=== PATIENT | female | born 1955 | race Caucasian/White ===

== ENCOUNTER 2022-05-25 18:21 | Observation (INO) | payer MEDICARE, SELFPAY ==
[2022-05-25 18:22] VITALS: BP 106/47; PULSE 56; RESP 15; TEMP 36.5; O2SAT 100; BMI 28.0
[2022-05-25 18:39] VITALS: BMI 28.0
[2022-05-25 19:13] VITALS: BP 98/53; PULSE 60; RESP 16; O2SAT 100
--- NOTE | 2022-05-25 19:13 | CT_ITS ---
We are attempting to reach an attending provider to discuss findings. An addendum with communication details will be sent when the communication is complete. STAT! STAT! STROKE ALERT! STUDY: CT BRAIN WITHOUT CONTRAST FOR STROKE ALERT STUDY OF 1941 HOURS ON 05/25/2022 REASON FOR EXAM: 66-year-old female with neural deficit. Acute stroke is suspected. RADIATION DOSAGE (If Supplied By Facility): CTDIvol = ( 44.99 ) mGy, DLP = ( 796.11 ) mGycm TECHNIQUE: Transaxial CT imaging of the brain was performed without administration of intravenous contrast material. Individualized dose optimization techniques were used for this CT. Sagittal and coronal reconstructions were obtained and all were demonstrated in osseous and soft tissue algorithms. COMPARISON: No relevant priors. FINDINGS: Normal ventricular system without a midline shift. No ischemic or hemorrhagic cerebral infarct. No mass lesions or metastatic disease. No subdural, epidural, intracerebral hematoma, hemorrhage or contusion. No solid pituitary. Normal brainstem and posterior fossa. Normal calvarium without definite depressed skull fractures. Chronic mucosal thickening in the left maxillary sinus compatible with chronic left maxillary sinusitis. Other paranasal sinuses are normal. CT/STROKE Brain/Head without Cont IMPRESSION: 1. No intracranial pathology. 2. No current evidence of an ischemic or hemorrhagic cerebral infarct. 3. No intracranial mass lesions, hemorrhage or hematomas. 4. Normal sella and pituitary normal posterior fossa and brainstem. 5. Normal paranasal sinuses. 6. Chronic left maxillary sinusitis. The other paranasal sinuses are normal. Electronically Signed: Liang Pardo MD at 20:02 EDT ,
--- NOTE | 2022-05-25 19:13 | EKG12_ITS ---
Test Reason : DYSRHYTHMIA Blood Pressure : / mmHG Vent. Rate : 057 BPM Atrial Rate : 057 BPM P-R Int : 126 ms QRS Dur : 108 ms QT Int : 466 ms P-R-T Axes : 046 006 042 degrees QTc Int : 453 ms Sinus bradycardia Otherwise normal ECG Confirmed by ROSE MARIE BREWER, FARZANA ([id number]), production editor FLORENCIO SUTTON ([id number]) on 05/28/2022 9:39:13 AM Referred By: BRITTANI Confirmed By:FARZANA TROTTER MD
--- NOTE | 2022-05-25 19:16 | EDS_ITS ---
HPI History of Present Illness Chief Complaint: Neuro S/Sx Narrative Narrative: 66-year-old female with history of traumatic brain injury and hemorrhage presenting with strokelike symptoms which started 10 days ago on the . She states that it was about 9 PM [place] standard time. She is from [place]. She made an appointment with her primary care physician and she states that he did not say or do anything. He did not send her to the hospital. He did not start her on antiplatelet medicines. She states at that point she had had some slurred speech and drooling from the side of her mouth. The patient and her sister through kristen gonzalez had some financial problems which cause them to be homeless and they decided that they would move here to live in the basement of another family member. They drove from [place] leaving about 6 days ago. Over that time the patient has had some intermittent slurred speech, drooling from the side of her mouth and slight facial droop which comes and goes. No visual complaints. She has been able to move her arms and legs. She walks with a cane at baseline. Today she states she had a fall secondary to weakness and fell on her right side but complains of bilateral hip pain and lower back pain. She states she is unable to ambulate. Patient also states that she has a very bad headache and a history of migraines, but she does not believe she is having a migraine because she can tell the difference. She denies any head trauma today. She does not believe she hit her head. She had no loss of consciousness. Again she is not on any blood thinners. She does state that she had a seizure disorder around the time she had a traumatic brain injury but has not been on any medications for seizure in years and this episode of trauma occurred in 1992. [facility] Medical History COPD (chronic obstructive pulmonary disease) Grand mal seizure Heart attack History of breast cancer History of cervical cancer History of migraine TBI (traumatic brain injury) TIA (transient ischemic attack) Home Medications albuterol sulfate 90 mcg/actuation aerosol inhaler (Ventolin HFA) inhalation Q4H PRN PRN sob 05/25/22 [History Last Taken Unknown] aripiprazole 5 mg tablet 5 mg PO QHS 05/25/22 [History Last Taken 05/24/22] benzonatate 200 mg capsule 200 mg PO DAILY 05/25/22 [History Last Taken 05/25/22] budesonide-formoterol HFA 80 mcg-4.5 mcg/actuation aerosol inhaler (Symbicort) 2 puff inhalation BID 05/25/22 [History Last Taken Unknown] diazepam 5 mg tablet 5 mg PO TID 05/25/22 [History Last Taken Unknown] diclofenac sodium 75 mg tablet,delayed release 75 mg PO BID 05/25/22 [History Last Taken 05/25/22] methocarbamol 750 mg tablet 750 mg PO QHS 05/25/22 [History Last Taken Unknown] omeprazole 40 mg capsule,delayed release 80 mg PO DAILY 05/25/22 [History Last Taken 05/25/22] oxycodone-acetaminophen 5 mg-325 mg tablet 1 tab PO Q6H PRN Pain 05/25/22 [History Last Taken Unknown] simvastatin 40 mg tablet 40 mg PO QHS 05/25/22 [History Last Taken 05/24/22] trazodone 150 mg tablet 300 mg PO QHS sleep 05/25/22 [History Last Taken 05/24/22] Allergy/AdvReac Type Severity Reaction Status Date / Time divalproex sodium Allergy Angioedema Verified 05/25/22 18:31 [From Depakote] Influenza Virus Vaccines Allergy Angioedema Verified 05/25/22 18:31 [flu shot] phenytoin [From Dilantin] Allergy Hives Verified 05/25/22 18:31 tramadol Allergy Angioedema Verified 05/25/22 18:31 oxybutynin [From Ditropan] AdvReac Itching Verified 05/25/22 18:31 tetracycline AdvReac Itching Verified 05/25/22 18:31 Social History Smoking Status: Never smoker ROS ROS ED Constitutional Constitutional ED: Denies chills Eyes Eyes: Denies change in vision or diplopia ENT ENT ED: Denies rhinorrhea or sore throat Cardiovascular Cardiovascular: Denies chest pain or palpitations Respiratory/Chest Respiratory/Chest: Denies cough or dyspnea Gastrointestinal Gastrointestinal: Denies abdominal pain, nausea or vomiting Genitourinary Genitourinary ED: Denies dysuria or hematuria Musculoskeletal Musculoskeletal: Reports back pain and other Details: Bilateral hip pain ; Denies arthralgias Integumentary Denies abscess or Abrasions Neurologic Neurologic: Reports headache(s); Denies paresthesias Psychiatric Psychiatric: Denies anxiety or depression EXAM Physical Exam Const Vital Signs: 05/25/22 18:22 05/25/22 19:13 Temperature 97.7 F L Temperature Source Temporal Pulse Rate 56 L 60 Respiratory Rate 15 16 Blood Pressure 106/47 L 98/53 L Blood Pressure Mean 66 68 Pulse Ox 100 100 Oxygen Delivery Method Room Air Room Air Positive well nourished General Appearance ED: NAD HEENT Reports moist mucous membranes Eyes PERRL and EOMs intact bilaterally General Eye ED: Negative for pale conjunctiva or scleral icterus Chest Wall inspection of chest normal Resp normal respiratory effort and clear to auscultation bilaterally Auscultation: Negative for rales, rhonchi or wheezes GI normal to inspection, nondistended, normoactive bowel sounds Back/Spine Cervical Spine: Negative for cervical spine tenderness Thoracic Spine / Upper Back: Negative for thoracic spinal tenderness Lumbar Spine / Lower Back: Negative for lumbar spinal tenderness Extremity Extremity Narrative: Tenderness to palpation to the bilateral hips. Negative logroll. Patient able to extend her legs and extend the knees up off the bed but cannot flex her hips up off the bed. No obvious deformities. Neuro oriented x3 Sensorium / Orientation: alert Speech: speech normal Motor Exam: general weakness Psych mental status grossly normal Skin no wounds General Skin Exam: Negative for jaundice NIHSS NIHSS Initial: 1a Level of Consciousness: 0 1b LOC Questions (Score 2 if aphasic/stupor): 0 1c LOC Commands (Only score 1st attempt): 0 2 Best Gaze (If aphasic, use reflexive mvmts.): 0 3 Visual: 0 4 Facial Palsy: 1 5 Motor Arm Right (UN = amputation/fusion): 1 5 Motor Arm Left: 0 6 Motor Leg Right: 0 6 Motor Leg Left: 0 7 Limb ataxia (Only + if out of proportion): 0 8 Sensory (Aphasia/stupor=0 or 1, coma=2): 1 9 Best Language: 0 10 Dysarthria (mute, coma=2, intubated=UN): 0 11 Extinction and Inattention (only scored if +): 0 Total Score: 3 MDM MDM MDM Narrative Medical decision making narrative: Patient has had intermittent slurred speech, drooling from the right side of her mouth, facial droop on the right over the course of the last 10 days. A stroke team was not called for this reason. She does have a recent fall today but denies head injury. She complains of bilateral hip pain and a headache. Patient does have history of traumatic brain injury and states that she had a traumatic brain bleed initially had seizures which resolved and she is not on any antiepileptics. She is not on blood thinners. On exam she has a slight facial droop on the right nasolabial fold. She has diminished sensation on the right side of the face adjacent to this. There are no sensory deficits otherwise. There are some slight drift on the right upper extremity but the patient does not drop the arm and it does not hit the bed. Patient does have bilateral hip pain and cannot hold her legs off the bed but she can extend from the knees and hold these up without difficulty. Her strength appears to be normal. Sensation is intact here. She does not appear to have any slurred speech right now. NIH stroke scale would be 3 based on these fine blood work and a CT of the brain as well as a lumbar spine x-ray and bilateral hip x-rays. Patient was medicated with Compazine and Benadryl for her headache. Patient CT brain was negative for any acute findings and after 10 days of symptoms I would presume something which show up on the CAT scan. She does have an NIH stroke scale score of 3. Blood work is obtained with no previous comparison. CBC shows a white blood cell count of 8.2. Hemoglobin 10.4. Hematocrit 34.3, platelets 184. PT and INR normal. Creatinine is normal with 0.92. Review of the Saturday I show a slightly elevated was given IV fluids. Her potassium is 5.9 however the specimen is moderately hemolyzed. Urinalysis is negative for infection. Because of her fall I did obtain an x-ray of the lumbar spine which on my interpretation do not show any acute fracture. X-rays of the pelvis and bilateral hips also on my interpretation show no acute fractures. The radiologist is in agreement. Given the patient's neurologic symptoms I will admit the patient and I spoke to the hospitalist about this. It is possible she has an atypical migraine which is causing her symptoms. I would again assume that something would show up on her CT at this timeframe if she had a stroke. Patient admitted in stable condition. Impression: 1. CVA 2. Headache 3. Generalized weakness 4. Mechanical fall 5. Bilateral hip contusions Lab Data Attestation: I reviewed the patient's lab results. Labs: Laboratory Results - last 24 hr 05/25/22 05/25/22 05/25/22 19:28 19:28 19:28 WBC 8.2 RBC 3.56 L Hgb 10.4 L Hct 34.3 L MCV 96.3 MCH 29.2 MCHC 30.3 L RDW Std Deviation 77.6 H RDW Coeff of Arti 21.6 H Plt Count 184 MPV 10.6 Immature Gran % (Auto) 0.400 Neut % (Auto) 71.4 H Lymph % (Auto) 19.9 [place] % (Auto) 6.3 Eos % (Auto) 1.6 Baso % (Auto) 0.4 Absolute Neuts (auto) 5.8 Absolute Lymphs (auto) 1.62 Nucleated RBC % 0 Platelet Estimate ADEQUATE RBC Morphology N CHROM Anisocytosis 1+ PT 11.6 L INR 0.9 APTT 22.5 L Sodium 140 Potassium 5.9 H Chloride 111 H Carbon Dioxide 24.0 Anion Gap 5 BUN 28 H Creatinine 0.92 Estim Creat Clear Calc 58.49 Est GFR (MDRD) Af Amer 78 Est GFR (MDRD) Non-Af 65 BUN/Creatinine Ratio 30.4 H Glucose 104 Calcium 8.9 Troponin I High Sens 5 Urine Color Urine Clarity Urine pH Ur Specific [place] Urine Protein Urine Glucose (UA) Urine Ketones Urine Occult Blood Urine Nitrite Urine Bilirubin Urine Urobilinogen Ur Leukocyte Esterase Urine RBC Urine WBC Ur Squamous Epith Cells Urine Bacteria Urine Mucus 05/25/22 20:25 WBC RBC Hgb Hct MCV MCH MCHC RDW Std Deviation RDW Coeff of Arti Plt Count MPV Immature Gran % (Auto) Neut % (Auto) Lymph % (Auto) [place] % (Auto) Eos % (Auto) Baso % (Auto) Absolute Neuts (auto) Absolute Lymphs (auto) Nucleated RBC % Platelet Estimate RBC Morphology Anisocytosis PT INR APTT Sodium Potassium Chloride Carbon Dioxide Anion Gap BUN Creatinine Estim Creat Clear Calc Est GFR (MDRD) Af Amer Est GFR (MDRD) Non-Af BUN/Creatinine Ratio Glucose Calcium Troponin I High Sens Urine Color Yellow Urine Clarity Clear Urine pH 6.0 Ur Specific [place] 1.010 Urine Protein Negative Urine Glucose (UA) Normal Urine Ketones Negative Urine Occult Blood Negative Urine Nitrite Negative Urine Bilirubin Negative Urine Urobilinogen Normal Ur Leukocyte Esterase 25 H Urine RBC 0 SEEN Urine WBC 0-5 SEEN Ur Squamous Epith Cells 0-5 SEEN Urine Bacteria RARE Urine Mucus 0 SEEN Radiography Diagnostic Testing: Clinical Impression(s) from Imaging Studies Brain CT 05/25/22 19:13 IMPRESSION: 1. No intracranial pathology. 2. No current evidence of an ischemic or hemorrhagic cerebral infarct. 3. No intracranial mass lesions, hemorrhage or hematomas. 4. Normal sella and pituitary normal posterior fossa and brainstem. 5. Normal paranasal sinuses. 6. Chronic left maxillary sinusitis. The other paranasal sinuses are normal. Electronically Signed: Liang Pardo MD at 20:02 EDT , ADDENDUM: 05/25/222012 IMPRESSION: 1. No intracranial pathology. 2. No current evidence of an ischemic or hemorrhagic cerebral infarct. 3. No intracranial mass lesions, hemorrhage or hematomas. 4. Normal sella and pituitary normal posterior fossa and brainstem. 5. Normal paranasal sinuses. 6. Chronic left maxillary sinusitis. The other paranasal sinuses are normal. N.B. : The above Results were Read Back by Liang Pardo MD to Petey Sweet MD, and understanding confirmed on 05/25/2022 20:06:25 (ET). Electronically Signed: Liang Pardo MD at 20:02 EDT Reading Location ID and State: [id number] / [place] Tel , Service support , Chest X-Ray 05/25/22 19:45 IMPRESSION: 1. Minimal fibrotic changes in both lower lobes. 2. No other evidence of active cardiopulmonary disease. 3. No subdiaphragmatic abnormalities. Electronically Signed: Liang Pardo MD at 21:18 EDT , Hip/Pelvis X-Ray 05/25/22 19:45 IMPRESSION: No hardware complications or acute osseous abnormalities. Electronically Signed: Tom Simms MD at 22:30 EDT , Lumbar Spine X-Ray 05/25/22 19:45 IMPRESSION: 1. Mild demineralization. 2. Moderate lumbar levoscoliosis. 3. No lumbar vertebral body fractures or subluxations. 4. Moderate narrowing of all lumbar intervertebral disc spaces with vacuum phenomena is in the L2-3 and L3-4 intervertebral disc spaces. 5. Moderate osteophytic degenerative changes. Electronically Signed: Liang Pardo MD at 21:21 EDT , Discharge Plan Disposition Disposition: Acute Care Hospital [facility] Discharge Date/Time: 05/25/22 22:07
[2022-05-25] MEDS: DiphenhydrAMINE 50 MG/ML Syringe 25 MG IV (19:28)
[2022-05-25] MEDS: proCHLORPERazine 10 MG/2 ML Vial IV (19:29)
[2022-05-25 19:35] LABS: Absolute Lymphocyte Count 1.62 X10^3/uL (0.83-4.51); Absolute Neutrophil Count 5.8 X10^3/uL (2.0-7.7); Basophil# 0.03 X10^3/uL; Basophil% 0.4 % (0-1); Eosinophil# 0.13 X10^3/uL; Eosinophils% 1.6 % (0-5); Hematocrit 34.3 % (37-47); Hemoglobin 10.4 g/dL (12.0-15.0); Lymphocyte # 1.62 X10^3/ul (0.83-4.51); Lymphocyte % 19.9 % (19-41); Mean Corp Hgb Conc 30.3 g/dL (32-36); Mean Corpuscular Hgb 29.2 pg (27.0-32.0); Mean Corpuscular Volume 96.3 fL (81-99); Mean Platelet Vol. 10.6 fl (6.2-12.0); Monocyte# 0.51 X10^3/uL; Monocyte% 6.3 % (0-10); NRBC Flagged by Analyzer 0 % (0-5); Neutrophil # 5.83 X10^3/uL (2.7-7.7); Neutrophil % 71.4 % (47-70); POSITIVE MORPHOLOGY YES; Platelet Count 184 K/mm3 (150-450); RBC Distribution Width CV 21.6 % (11.6-14.6); RBC Distribution Width SD 77.6 fl (35.1-43.9); Red Blood Count 3.56 M/mm3 (4.2-5.4); White Blood Count 8.2 K/mm3 (4.4-11.0)
[2022-05-25 19:36] LABS: Differential Indicated SCAN CRITERIA MET
--- NOTE | 2022-05-25 19:45 | RAD_ITS ---
STUDY: LIMITED LUMBOSACRAL SPINE--2 VIEWS OF 1956 HOURS ON 05/25/2022 REASON FOR EXAM: 66-year-old female with back pain. TECHNIQUE: 2 view(s) of the lumbar spine were obtained. COMPARISON: None FINDINGS: Mild demineralization. Moderate lumbar dextroscoliosis. No lumbar vertebral body fractures or subluxations. Moderate narrowing of all lumbar intervertebral disc spaces with vacuum phenomenons in the L2-3 and L3-4 intervertebral disc spaces. There are moderate osteophytic degenerative changes of the lumbar spine. There is evidence of moderate constipation in the ascending colon and rectum. RAD/Lumbar Spine 2 or 3 Views IMPRESSION: 1. Mild demineralization. 2. Moderate lumbar levoscoliosis. 3. No lumbar vertebral body fractures or subluxations. 4. Moderate narrowing of all lumbar intervertebral disc spaces with vacuum phenomena is in the L2-3 and L3-4 intervertebral disc spaces. 5. Moderate osteophytic degenerative changes. Electronically Signed: Liang Pardo MD at 21:21 EDT ,
--- NOTE | 2022-05-25 19:45 | RAD_ITS ---
EXAM: XR BILATERAL HIPS WITH PELVIS WHEN PERFORMED, 2 VIEWS CLINICAL INDICATION: fall with bilateral hip pain TECHNIQUE: Frontal view of the bilateral hips with pelvis when performed. This report was created using [employer] report generation technology. COMPARISON: None. FINDINGS: BONES/JOINTS: Right total hip arthroplasty with satisfactory alignment and no complications. No suspicious lytic or sclerotic lesions of bone. No acute or healing fracture or malalignment. Sacroiliac joint is unremarkable. No widening of the pubic symphysis. SOFT TISSUES: Injection granulomas bilaterally. No soft tissue swelling or gas. VASCULATURE: Phleboliths in the pelvis. RAD/Hips B/L min 2 views w/ Pelvis IMPRESSION: No hardware complications or acute osseous abnormalities. Electronically Signed: Tom Simms MD at 22:30 EDT ,
--- NOTE | 2022-05-25 19:45 | RAD_ITS ---
STUDY: UPRIGHT CHEST X-RAY OF 2008 HOURS ON 05/25/2022 REASON FOR EXAM: 66-year-old female with a neurologic deficit, stroke suspected. TECHNIQUE: An AP upright chest x-ray was performed per protocol. COMPARISON: None. FINDINGS: Normal osseous structures. Left ventricular cardiac configuration without cardiomegaly or heart failure. Suggestion of minimal fibrotic changes in both lower lobes. No pulmonary infiltrates, atelectasis, effusion, pulmonary mass lesions. No pneumonia, pneumonitis or bronchitis. No subdiaphragmatic abnormalities. RAD/Chest 1 View IMPRESSION: 1. Minimal fibrotic changes in both lower lobes. 2. No other evidence of active cardiopulmonary disease. 3. No subdiaphragmatic abnormalities. Electronically Signed: Liang Pardo MD at 21:18 EDT ,
[2022-05-25 20:14] LABS: Anion Gap 5 (5-15); BUN 28 mg/dL (7-18); BUN/Creat Ratio 30.4 RATIO (10-20); Calcium,Total 8.9 mg/dL (8.5-10.1); Chloride 111 mmol/L (98-107); Creatinine, Serum 0.92 mg/dL (0.55-1.02); EST Glomerular Filtration Rate 65 mL/min (>60); Est Glom Filt Rate - Afr Amer 78 mL/min (>60); Estimated Creatinine Clearance 58.49 ml/min; Glucose 104 mg/dL (74-106); Potassium 5.9 mmol/L (3.5-5.1); Sodium Level 140 mmol/L (136-145); Troponin-I HS 5 pg/mL (3.0-54.0)
[2022-05-25 20:16] LABS: International Normalized Ratio 0.9; Partial Thromboplast Time 22.5 Seconds (24.1-36.2); Prothrombin Time (Protime)PT. 11.6 SECONDS (11.7-14.9)
[2022-05-25 20:28] LABS: Mucous, Urine 0 SEEN /hpf (<or=2+); Red Blood Cells-Urine 0 SEEN /hpf (0-5)
[2022-05-25] MEDS: 0.9% Normal Saline 1,000 ML 999 ML IV (20:33)
[2022-05-25 20:37] LABS: Anisocytosis 1+; Platelet Estimate ADEQUATE (ADEQ); Red Cell Morphology N CHROM NORMAL (NORM C&C)
--- NOTE | 2022-05-25 20:50 | PCM.HP.STD ---
HPI - General General Date of Admission: 05/25/22 Date of Service: 05/25/22 Chief Complaint: 10 days facial droop, slurred speech, falls. HPI Narrative The patient is a 66 y/o F w/ PMHx: Hx migraines, COPD, Hx TBI w/ seizures associated (Trauma 1992, had been on AED prior, no seizures for years), GERD, Hx Breast and cervical CA, Hx TIA, Hx TX w/ nonobstructive CAD who presents to the [facility] ED on 05/25/22 with history of onset approximately 10 days prior to current presentation strokelike symptoms starting approximately 9 PM while she was visiting in [place] with specifically mildly slurred speech as well as drooling occasionally from the right side of her mouth with associated right sided mild facial droop but she notes that this has actually been intermittent with fall on day of presentation specifically reporting weakness associated with no LOC or head trauma but noted bilateral hip and lower back discomfort with difficulty ambulating following secondary to discomfort following with reported concurrent diffuse severe headache with a history of migraines with no recent head trauma nor any loss of consciousness prompting eventual ED evaluation. Work-up in the ED included T97.7, heart rate initially 56, BP initially 106/47, respiratory rate 15, 100% on room air with most recent vital signs heart rate 60, BP 98/53, CBC with WBC 8.2, hemoglobin 10.4, MCV 96.3, platelet 184 without marked shift, coags with PT 11.6, INR 0.9, PTT 22.5, BMP with K 5.9 but noted to be moderately hemolyzed, Chl 111, BUN/Cr 28/0.92, troponin 5, UA unremarkable, CT brain with no acute intracranial findings, EKG with SR without acute evidence of ischemia, chest x-ray with minimal fibrotic changes bilateral lower lobes with no other acute cardiopulmonary findings, bilateral hip and pelvis plain film with no hardware complications or acute osseous abnormalities, lumbar spine plain film with moderate lumbar levoscoliosis, moderate narrowing of all lumbar intervertebral disc spaces, moderate osteophytic degenerative changes with otherwise no acute findings. ED NIH stroke scale noted to be 3 for facial palsy, right upper extremity drift as well as altered sensation specifically decreased on the right side of the face. In the ED patient ministered Compazine as well as Benadryl for headache. [facility] Medical History (Updated 05/26/22 @ 00:[address] Hortencia Burrell MD) CAD (coronary artery disease) COPD (chronic obstructive pulmonary disease) Grand mal seizure Heart attack History of breast cancer History of cervical cancer History of migraine TBI (traumatic brain injury) TIA (transient ischemic attack) Home Medications albuterol sulfate 90 mcg/actuation aerosol inhaler (Ventolin HFA) inhalation Q4H PRN PRN sob 05/25/22 [History Last Taken Unknown] aripiprazole 5 mg tablet 5 mg PO QHS 05/25/22 [History Last Taken 05/24/22] benzonatate 200 mg capsule 200 mg PO DAILY 05/25/22 [History Last Taken 05/25/22] budesonide-formoterol HFA 80 mcg-4.5 mcg/actuation aerosol inhaler (Symbicort) 2 puff inhalation BID 05/25/22 [History Last Taken Unknown] diazepam 5 mg tablet 5 mg PO TID 05/25/22 [History Last Taken Unknown] diclofenac sodium 75 mg tablet,delayed release 75 mg PO BID 05/25/22 [History Last Taken 05/25/22] methocarbamol 750 mg tablet 750 mg PO TID 05/25/22 [History Last Taken 05/25/22] omeprazole 40 mg capsule,delayed release 80 mg PO DAILY 05/25/22 [History Last Taken 05/25/22] oxycodone-acetaminophen 5 mg-325 mg tablet 1 tab PO Q6H PRN Pain 05/25/22 [History Last Taken Unknown] simvastatin 40 mg tablet 40 mg PO QHS 05/25/22 [History Last Taken 05/24/22] trazodone 150 mg tablet 300 mg PO QHS sleep 05/25/22 [History Last Taken 05/24/22] Allergy/AdvReac Type Severity Reaction Status Date / Time divalproex sodium Allergy Angioedema Verified 05/25/22 22:46 [From Depakote] Influenza Virus Vaccines Allergy Angioedema Verified 05/25/22 22:46 [flu shot] phenytoin [From Dilantin] Allergy Hives Verified 05/25/22 22:46 propofol Allergy Angioedema Verified 05/25/22 22:46 Iodinated Contrast Media AdvReac Intermediate Angioedema Verified 05/25/22 22:46 acetaminophen AdvReac Itching Verified 05/25/22 22:46 [From Tylenol-Codeine #3] codeine AdvReac Itching Verified 05/25/22 22:46 [From Tylenol-Codeine #3] Latex, Natural Rubber AdvReac Swelling Verified 05/25/22 22:46 meloxicam AdvReac Other Verified 05/25/22 22:46 oxybutynin [From Ditropan] AdvReac Swelling Verified 05/25/22 22:46 pravastatin AdvReac Swelling Verified 05/25/22 22:46 tetracycline AdvReac Itching Verified 05/25/22 22:46 tramadol AdvReac Other Verified 05/25/22 22:46 adopted (Patient does not know any of her biological family history, adopted.) Surgical History (Updated 05/26/22 @ 00:[address] Hortencia Burrell MD) History of total right hip replacement Hx of cholecystectomy S/P ALLAN (total abdominal hysterectomy) Social History (Updated 05/26/22 @ 00:[address] Hortencia Burrell MD) household members: other details: Living with her daughter. Smoking Status: Never smoker alcohol intake: never substance use type: does not use ROS ROS Narrative Admission Review of Systems: CONSTITUTIONAL: No weight loss, fever, chills, + weakness or fatigue. HEENT: + Headache, R facial drop/paresthesias. Eyes: No visual loss, blurred vision, double vision or yellow sclerae. Ears, Nose, Throat: No hearing loss, sneezing, congestion, runny nose or sore throat. SKIN: No rash or itching, lesions, wounds. CARDIOVASCULAR: No chest pain, chest pressure or chest discomfort, palpitations, edema, orthopnea, syncopal events. RESPIRATORY: No shortness of breath, cough or sputum, wheezing, hemoptysis. GASTROINTESTINAL: No anorexia, nausea, vomiting or diarrhea, abdominal pain, melena, BRBPR. GENITOURINARY: No dysuria, frequency, urgency or retention. NEUROLOGICAL: + Headache, R facial droop/paresthesias, No dizziness, syncope, paralysis, ataxia, change in bowel or bladder control, seizure. MUSCULOSKELETAL: + muscle, back pain, joint pain or stiffness. HEMATOLOGIC: + anemia, bleeding or bruising. LYMPHATICS: No enlarged nodes. No history of splenectomy. PSYCHIATRIC: + history of depression or anxiety. ENDOCRINOLOGIC: No reports of sweating, cold or heat intolerance. No polyuria or polydipsia. ALLERGIES: + history of hives. Vital Signs Vital Signs Vital Signs: 05/25/22 18:22 05/25/22 19:13 Temperature 97.7 F L Temperature Source Temporal Pulse Rate 56 L 60 Respiratory Rate 15 16 Blood Pressure 106/47 L 98/53 L Blood Pressure Mean 66 68 Pulse Ox 100 100 Oxygen Delivery Method Room Air Room Air Weight Weight: 179 lb 3.773 oz Body Mass Index (BMI) 28.0 Physical Exam Narrative Physical Examination: General: Awake, alert, oriented x 3 and cooperative, seated upright in the ED bed in no apparent distress, currently only reporting mild facial paresthesias otherwise all prior neurological complaints resolved. Skin: Normal color, normal turgor, no icterus, no cyanosis. HEENT: AT/NC, EOMI, PERRLA, MMM, no carotid bruits or JVD noted, right-sided facial paresthesias, any prior right-sided facial droop completely resolved at this point, significant facial distancing between her eyes and atypical craniofacial appearance. Lungs: Mildly diminished, greater bases, appropriate effort, no rales, ronchi or wheezing. Heart: Currently regular rate and rhythm; no gallop, rub audible. Abdomen: Soft, overweight, NTTP, ND, distant normal BS, no HSM. Extremities: No cyanosis, clubbing, or edema. Neurological: Patient awake, alert, oriented as noted, cognitive function intact; pupils equally reactive to light and accommodation, cranial nerves grossly normal, moving all 4 extremities although some difficulty with bilateral lower extremity raise secondary to discomfort in the hips, no focal deficits, finger-nose appropriate bilaterally, unable to perform [id number] secondary to knee and hip debility, negative Babinski, only notable finding is mild right-sided facial paresthesia complaint, speech appropriate. Psychiatric: Affect appears normal, no acute evidence of depressive or anxiety feelings. Results Lab / Micro Data Result Diagrams: 05/25/22 19:28 05/25/22 19:28 Labs: Laboratory Results - last 24 hr 05/25/22 19:28: WBC 8.2, RBC 3.56 L, Hgb 10.4 L, Hct 34.3 L, MCV 96.3, MCH 29.2, MCHC 30.3 L, RDW Std Deviation 77.6 H, RDW Coeff of Arti 21.6 H, Plt Count 184, MPV 10.6, Immature Gran % (Auto) 0.400, Neut % (Auto) 71.4 H, Lymph % (Auto) 19.9, White % (Auto) 6.3, Eos % (Auto) 1.6, Baso % (Auto) 0.4, Absolute Neuts (auto) 5.8, Absolute Lymphs (auto) 1.62, Nucleated RBC % 0, Platelet Estimate ADEQUATE, RBC Morphology N CHROM, Anisocytosis 1+ 05/25/22 19:28: PT 11.6 L, INR 0.9, APTT 22.5 L 05/25/22 19:28: Sodium 140, Potassium 5.9 H, Chloride 111 H, Carbon Dioxide 24.0, Anion Gap 5, BUN 28 H, Creatinine 0.92, Estim Creat Clear Calc 58.49, Est GFR (MDRD) Af Amer 78, Est GFR (MDRD) Non-Af 65, BUN/Creatinine Ratio 30.4 H, Glucose 104, Calcium 8.9, Troponin I High Sens [address] 05/25/22 19:13 IMPRESSION: 1. No intracranial pathology. 2. No current evidence of an ischemic or hemorrhagic cerebral infarct. 3. No intracranial mass lesions, hemorrhage or hematomas. 4. Normal sella and pituitary normal posterior fossa and brainstem. 5. Normal paranasal sinuses. 6. Chronic left maxillary sinusitis. The other paranasal sinuses are normal. Electronically Signed: Liang Pardo MD at 20:02 EDT Reading Location ID and State: [facility] / [place] Tel , Service support , ADDENDUM: 05/25/222012 IMPRESSION: 1. No intracranial pathology. 2. No current evidence of an ischemic or hemorrhagic cerebral infarct. 3. No intracranial mass lesions, hemorrhage or hematomas. 4. Normal sella and pituitary normal posterior fossa and brainstem. 5. Normal paranasal sinuses. 6. Chronic left maxillary sinusitis. The other paranasal sinuses are normal. N.B. : The above Results were Read Back by Liang Pardo MD to Petey Sweet MD, and understanding confirmed on 05/25/2022 20:06:25 (ET). Electronically Signed: Liang Pardo MD at 20:02 EDT , Assessment & Plan Assessment/Plan (1) CVA (cerebral vascular accident): PLAN: Plan The patient is a 66 y/o F w/ PMHx: Hx migraines, COPD, Hx TBI w/ seizures associated (Trauma 1992, had been on AED prior, no seizures for years), GERD, Hx Breast and cervical CA, Hx TIA, Hx TX w/ nonobstructive CAD who presents to the [facility] ED on 05/25/22 with history of onset approximately 10 days prior to current presentation strokelike symptoms starting approximately 9 PM while she was visiting in [place] with specifically mildly slurred speech as well as drooling occasionally from the right side of her mouth with associated right sided mild facial droop but she notes that this has actually been intermittent with fall on day of presentation specifically reporting weakness associated with no LOC or head trauma but noted bilateral hip and lower back discomfort with difficulty ambulating following secondary to discomfort following with reported concurrent diffuse severe headache with a history of migraines with no recent head trauma nor any loss of consciousness prompting eventual ED evaluation. #1. Intermittent facial droop, slurred speech, weakness with fall concerning for CVA w/ prior Hx TIA (however given timeline [address] head lower suspicion) with questionable history of prior TIA versus complex Migraine with History of Prior Migraines (different than prior symptoms): Will admit to PCU, will obtain MRI Brain to be cautious however again would expect at least subacute findings on CT head given 10 days of neurological symptoms thus higher suspicion possible complex migraine in addition to MRI of the head and carotid ultrasound, will obtain ECHO, PT/OT/Speech/Nutrition evaluation per protocol. Given timeline of greater than 10 days will defer any treatment of hypertension however upon presentation patient is actually hypotensive with BP 98/53 (baseline BP of note) and no history prior of hypertension, will judiciously hydrate and attempt to improve BP, initiate aspirin therapy, initiate high-dose statin therapy, pending magnesium, TSH, FLP, hemoglobin A1c, maintain on fall and aspiration precautions. Pending further work-up and evaluation results will consider involvement of [facility] neurology. #2. Chronic COPD: Patient not on any chronic medications, will have PRN albuterol, HOB, IS parameters. #3. History trauma with prior TBI: Patient with trauma 1992 with hemorrhagic injury and associated TBI with seizures at that time noted to have been on antiepileptic drugs for many years however she is since been off without any recurrent activity. #4. History of breast, cervical cancer: Considered in remission, encourage continued outpatient follow-up as needed. #5. Nonobstructive CAD with history TX: Reported per patient, will maintain on aspirin, adding statin, at this point defer any consideration beta-mari/ELIZABETH inhibitor given hypotension, echocardiogram pending as noted above. #6. GERD: We will continue patient on PPI. #7. Normocytic anemia, unclear if chronic: Admission hemoglobin 10.4, MCV 96.3, will obtain iron panel, ferritin, vitamin B12 and folic acid levels, repeat CBC in AM. #8. DVT prophylaxis: SCDs, Lovenox. Charges/Coding Visit Charges OBSV E&M: 03399 Initial observation care L3
[2022-05-25 20:56] LABS: Color, Urine Yellow (Yellow); Glucose, Dipstick Normal (Normal); Ketone-Dipstick Negative (Negative); Leukocyte Esterase-Dipstick 25 /ul (Negative); Nitrite-Dipstick Negative (Negative); Occult Blood-Urine Negative /ul (Negative); Protein-Dipstick Negative (Negative); Urine Bilirubin Dipstick Negative (Negative); Urine Clarity Clear (Clear); Urine Urobilinogen Normal (Normal)
--- NOTE | 2022-05-25 20:59 | CM.ED ---
SW Note Referral Source: Case Find Referral Reason: No Primary Care Physician (PCP) SW reviewed chart and noted that patient has no PCP. SW provided patient with list of [facility] and [facility] Physician List for reference. No other issues or concerns voiced at this time. SW remains available for any additional needs. Plan: Provided patient with PCP information Hanny KAUFMAN
[2022-05-25 21:18] VITALS: BP 98/61; PULSE 45; RESP 16; TEMP 36.7; O2SAT 97
[2022-05-25 21:27] LABS: White Blood Cells 0-5 SEEN /hpf (0-5)
[2022-05-25 21:28] LABS: Bacteria RARE /hpf (None Seen); Squamous Epithelial Cells - UA 0-5 SEEN /hpf (5-10)
[2022-05-25 22:06] VITALS: BMI 26.8
--- NOTE | 2022-05-25 22:17 | ECHOD_ITS ---
Reason For Study: CVA Procedure This was a 2D Doppler, Color Flow transthoracic echocardiogram. Exam performed in department. Left Ventricle Normal LV size. Left ventricular systolic function is normal. The estimated ejection fraction is 55 %. No regional wall motion abnormalities noted. Right Ventricle Normal RV size. Normal systolic function. Atria Normal left atrium. Normal right atrium. Bubble contrast study negative for right to left interatrial shunt. Mitral Valve Normal mitral valve. Tricuspid Valve Normal tricuspid valve. Aortic Valve Normal aortic valve. Trisinus/trileaflet aortic valve. Pulmonic Valve Normal pulmonic valve. Great Vessels Normal aortic root. The pulmonary artery is normal size. Normal inferior vena cava. Pericardium/Pleural No pericardial effusion. Medication Performed a rapid injection of agitated mix of 9 cc saline and 1cc air to assess for atrial septal defect. MMode/2D Measurements & Calculations LVIDd: 4.8 cm IVSd: 0.74 cm Ao root diam: 2.8 cm LVIDs: 3.3 cm LVPWd: 0.71 cm RVDd: 2.6 cm FS: 31.8 % LAV(MOD-bp): 77.2 ml LVAd ap4: 28.4 cm2 SV(MOD-sp4): 50.9 ml LAV(MOD-bp) Indexed: 40.8 ml/m2 LVLd ap4: 8.4 cm LAV(MOD-sp2): 92.5 ml EDV(MOD-sp4): 81.6 ml LAV(MOD-sp4): 60.6 ml EDV(sp4-el): 81.7 ml LVAs ap4: 14.8 cm2 LVLs ap4: 6.3 cm ESV(MOD-sp4): 30.7 ml ESV(sp4-el): 29.3 ml EF(MOD-sp4): 62.4 % EF(sp4-el): 64.1 % SV(sp4-el): 52.4 ml LA A4 area: 22.1 cm2 LA dimension(2D): 3.7 cm RA A4 area: 17.2 cm2 Time Measurements MV dec time: 0.22 sec Doppler Measurements & Calculations MV E max scar: 88.1 cm/sec Lat Peak E' Scar: 16.0 cm/sec Med Peak E' Scar: 7.6 cm/sec MV A max scar: 63.6 cm/sec E/E' lat: 5.5 E/E' med: 11.5 MV E/A: 1.4 MV V2 max: 79.4 cm/sec MV dec slope: 408.6 cm/sec2 Ao V2 max: 169.9 cm/sec MV max P.5 mmHg Ao max P.6 mmHg MV V2 mean: 40.3 cm/sec Ao V2 mean: 109.2 cm/sec MV mean P.84 mmHg Ao mean P.8 mmHg MV V2 VTI: 34.5 cm Ao V2 VTI: 42.0 cm LV V1 max: 145.4 cm/sec TR max scar: 277.4 cm/sec LV V1 max P.5 mmHg TR max P.8 mmHg LV V1 mean P.6 mmHg LV V1 mean: 99.8 cm/sec LV V1 VTI: 41.4 cm ECHO/Echo Complete Interpretation Summary Normal LV size. Left ventricular systolic function is normal. The estimated ejection fraction is 55 %. Bubble contrast study negative for right to left interatrial shunt. Structurally normal valves. Ordering Physician: Hortencia Burrell Referring Physician: JUAN PCP Performed By: Tricia Eubanks RCS
[2022-05-25 22:20] VITALS: BP 101/70; PULSE 51; RESP 16; TEMP 36.2; O2SAT 100
--- NOTE | 2022-05-25 22:33 | CDU_ITS ---
Reason For Study: CVA Rt. Velocities/BP Lt. Velocities/BP Prox CCA 94/30 cm/sec. Prox CCA 105/23 cm/sec. Mid CCA 97/26 cm/sec. Mid CCA 90/31 cm/sec. Dist CCA 81/24 cm/sec. Dist CCA 74/23 cm/sec. Prox ICA 77/23 cm/sec. Prox ICA 114/27 cm/sec. Mid ICA 84/24 cm/sec. Mid ICA 94/30 cm/sec. Dist ICA 71/21 cm/sec. Dist ICA 60/22 cm/sec. Rt. ICA/CCA = 0.9. Lt. ICA/CCA = 1.3. Prox ECA 114/5 cm/sec. Prox ECA 86/13 cm/sec. Rt. Vert. 40/7 cm/sec. Lt. Vert. 45/9 cm/sec. Right Extracranial There is intimal thickening but no significant atherosclerotic plaque noted in the right common carotid artery. There is heterogeneous, irregular atherosclerotic plaque noted in the right internal carotid artery. There is no significant atherosclerotic plaque noted in the right external carotid artery. Antegrade flow is noted in the right vertebral artery. Left Extracranial There is intimal thickening but no significant atherosclerotic plaque noted in the left common carotid artery. There is heterogeneous, irregular atherosclerotic plaque noted in the left internal carotid artery. There is no significant atherosclerotic plaque noted in the left external carotid artery. Antegrade flow is noted in the left vertebral artery. Procedure Carotid Duplex 89675. This is a Carotid Duplex examination using B-mode, color flow and specral Doppler. Exam performed portable in patient room. VL/Carotid Duplex Ultrasound Interpretation Summary Minimal calcific plaque in the proximal right internal carotid artery with less than 50% stenosis Less than 50% stenosis right external carotid artery Minimal irregular calcific plaque at the proximal left internal carotid artery with less than 50% stenosis Less than 50% stenosis left external carotid artery Patent and antegrade vertebral arteries bilaterally Ordering Physician: Hortencia Burrell Performed By: Ekaterina De Guzman, JAKE, RVT
[2022-05-25 22:54] LABS: Magnesium 2.3 mg/dL (1.6-2.6)
[2022-05-25 23:00] VITALS: PULSE 53
[2022-05-25] MEDS: 0.9% Normal Saline 1,000 ML 100 ML IV (23:02)
[2022-05-25] MEDS: 0.9% Saline Lock 10 ML Syringe IV (23:03)
[2022-05-26] VITALS (13 sets, daily range): BP systolic 84–113; BP diastolic 57–88; PULSE 43–94; RESP 16–18; TEMP 36.2–36.8; O2SAT 96–98; BMI 26.8
[2022-05-26] MEDS: oxyCODONE 5 MG Tablet PO (05:14)
[2022-05-26] MEDS: Methocarbamol 750 MG Tablet PO ×3 (05:14→20:18)
[2022-05-26] MEDS: diazePAM 5 MG Tablet PO ×3 (05:15→20:23)
[2022-05-26] MEDS: 0.9% Saline Lock 10 ML Syringe IV (05:15)
[2022-05-26] MEDS: Budesonide Respules 0.5 MG/2 ML AMPUL.NEB. INHALATION ×2 (07:03→19:25)
[2022-05-26] MEDS: 0.9% Normal Saline 1,000 ML 100 ML IV ×2 (08:31→20:00)
[2022-05-26] MEDS: Pantoprazole Sodium 40 MG Tablet 80 MG PO (08:47)
[2022-05-26] MEDS: Aspirin 81 MG TAB.CHEW PO (08:47)
[2022-05-26] MEDS: Benzonatate 100 MG Capsule 200 MG PO (08:47)
[2022-05-26] MEDS: Enoxaparin 40 MG/0.4 ML Syringe SC (08:48)
[2022-05-26 09:16] LABS: Absolute Lymphocyte Count 1.63 X10^3/uL (0.83-4.51); Basophil# 0.02 X10^3/uL; Basophil% 0.4 % (0-1); Eosinophil# 0.15 X10^3/uL; Eosinophils% 2.9 % (0-5); Hematocrit 30.3 % (37-47); Hemoglobin 9.2 g/dL (12.0-15.0); Lymphocyte # 1.63 X10^3/ul (0.83-4.51); Mean Corp Hgb Conc 30.4 g/dL (32-36); Mean Corpuscular Hgb 29.4 pg (27.0-32.0); Mean Corpuscular Volume 96.8 fL (81-99); Mean Platelet Vol. 11.4 fl (6.2-12.0); Monocyte# 0.45 X10^3/uL; Monocyte% 8.6 % (0-10); NRBC Flagged by Analyzer 0 % (0-5); Neutrophil # 2.99 X10^3/uL (2.7-7.7); Neutrophil % 56.9 % (47-70); POSITIVE MORPHOLOGY YES; Platelet Count 136 K/mm3 (150-450); RBC Distribution Width CV 21.7 % (11.6-14.6); RBC Distribution Width SD 77.6 fl (35.1-43.9); Red Blood Count 3.13 M/mm3 (4.2-5.4); White Blood Count 5.3 K/mm3 (4.4-11.0)
[2022-05-26 09:21] LABS: Differential Indicated SCAN CRITERIA MET
[2022-05-26 09:37] LABS: Differential Comment SCANNED
[2022-05-26 09:38] LABS: Anisocytosis 2+; Macrocytosis 1+; Microcytosis 1+
[2022-05-26 09:48] LABS: ALB/GLOB Ratio 1.2 RATIO (0.9-2.4); AST(SGOT) 14 U/L (15-37); Alanine Aminotransfer ALT/SGPT 16 U/L (13-56); Alkaline Phosphatase 112 U/L (45-117); Anion Gap 8 (5-15); BUN 19 mg/dL (7-18); Calcium,Total 8.3 mg/dL (8.5-10.1); Chloride 115 mmol/L (98-107); Cholesterol 118 mg/dL (200); Creatinine, Serum 0.63 mg/dL (0.55-1.02); EST Glomerular Filtration Rate 100 mL/min (>60); Est Glom Filt Rate - Afr Amer 121 mL/min (>60); Estimated Creatinine Clearance 53.81 ml/min; Globulin 2.6 g/dL (2.2-4.2); Glucose 84 mg/dL (74-106); High Density Lipoprotein 57 mg/dL; Potassium 4.7 mmol/L (3.5-5.1); Protein, Total 5.6 g/dL (6.4-8.2); Sodium Level 144 mmol/L (136-145); Thyroid Stim Hormone (TSH) 1.83 uIU/mL (0.358-3.74); Triglycerides 58 mg/dL; Very Low Density Lipoprotein 12 mg/dL (5-40)
[2022-05-26 09:49] LABS: Hemoglobin A1c 5.7 % (3.8-5.6)
--- NOTE | 2022-05-26 10:00 | MRI_ITS ---
STUDY: MRA OF THE HEAD WITHOUT CONTRAST REASON FOR EXAM: Female, 66 years old. CVA TECHNIQUE: 3-D [id number] (TOF) imaging was performed with MIPs. The study was performed unenhanced. COMPARISON: None. FINDINGS: Normal bilateral petrous carotid arteries. Normal right cavernous carotid artery with a normal supraclinoid bifurcation. Normal left cavernous carotid artery with a normal supraclinoid bifurcation. Normal right A1 segment of the anterior cerebral artery. Normal left A1 segment of the anterior cerebral artery. Normal intact anterior communicating artery (ACOM). Normal bilateral A2 segments of the anterior cerebral arteries. Normal right M1 and M2 segments of the middle cerebral arteries, with a normal M1 bifurcation. Normal left M1 and M2 segments of the middle cerebral arteries, with a normal M1 bifurcation. Normal right posterior communicating artery (PCOM). origin of the left posterior cerebral artery off the left internal carotid artery rather than a widely patent left posterior communicating artery (PCOM). This accounts for the developmentally absent left P1 segment. Normal bilateral vertebral arteries. Normal basilar artery with a normal basilar bifurcation. The visualized bilateral superior cerebellar (SCA) arteries are normal. Normal bilateral P1, P2 and visualized P3 segments of the posterior cerebral arteries. There is no demonstrated aneurysm of the nez perce of Simpson. There is no major vessel occlusion or hemodynamically significant stenosis. There is no demonstrated abnormality of the visualized brain. MRI/MRA Head ONLY without Contrast IMPRESSION: Normal MRA of the head Electronically Signed: Lamonte Gibson MD at 12:40 EDT ,
--- NOTE | 2022-05-26 10:00 | MRI_ITS ---
EXAM: MR HEAD WITHOUT INTRAVENOUS CONTRAST CLINICAL INDICATION: CVA TECHNIQUE: Multiplanar and multisequence MR images of the brain were obtained without intravenous contrast. This report was created using [employer] report generation technology. COMPARISON: CT head without contrast 05/25/2022. FINDINGS: BRAIN AND EXTRA-AXIAL SPACES: No diffusion restriction to suspect acute or subacute ischemic infarct. No focal signal abnormalities throughout the brain parenchyma. No intra- or extra-axial hemorrhage. No intracranial mass or mass effect. Posterior fossa structures are unremarkable. Ventricles are appropriate for age. No hydrocephalus. Basal cisterns are patent. SELLA: Unremarkable. Normal sella turcica, pituitary gland, infundibular stalk, optic chiasm and hypothalamus. AUDITORY SYSTEM: Unremarkable. The internal auditory canals are patent. BONES/JOINTS: Unremarkable. No discrete lytic or blastic abnormalities. SINUSES: Mucus retention cyst in the left maxillary sinus and minimal mucosal thickening. Contraction of the left maxillary sinus with sclerotic wall thickening from chronic sinusitis. MASTOID AIR CELLS: Unremarkable as visualized. Clear. ORBITS: Unremarkable as visualized. Both globes, extraocular muscles, optic nerves and retrobulbar fat appear unremarkable. VASCULATURE: Unremarkable as visualized. Normal flow voids in the major intracranial circulation. MRI/Brain without Contrast IMPRESSION: 1. Normal MRI of the brain without contrast. 2. Mucus retention cyst and mucosal thickening in a contracted left maxillary sinus. Sclerotic wall thickening and contraction are most in keeping with chronic sinusitis. This is better seen on CT head of 05/25/2022. Electronically Signed: Lamonte Gibson MD at 12:37 EDT ,
--- NOTE | 2022-05-26 13:19 | CASEMGMT ---
Therapy is recommending further therapy for pt at discharge and this RN CM to room to discuss with pt. Pt states plan is to go home and is agreeable to OP therapy. Script obtained and faxed to [facility]. Pt voices no further questions/concerns/needs. SStaten RN CM
--- NOTE | 2022-05-26 14:41 | CASEMGMT ---
Pt is still not up for discharge. This RN CM to room with OSBORNE form, explanation done-pt voices understanding, and consents to assessment. Original to chart and copy to pt. Pt voices no further questions/concerrns/needs. SStaten MAYCOL CM
--- NOTE | 2022-05-26 15:53 | PN.HOSP_ITS ---
Subjective Subjective Patient seen and examined. She still complained of weakness in her lower extremities and some numbness over her right cheek. She denied any tremors, shakes, any mouth droop or slurred speech or difficulty swallowing or any other symptoms. Review of systems otherwise negative. She did have MRI of the brain today which was negative for any evidence of stroke. Objective Data Objective Data Vital Signs: Vital Signs Temp Pulse Resp BP Pulse Ox O2 Del Method 97.4 F L 52 L 18 104/62 97 Room Air 05/26/22 14:50 05/26/22 15:00 05/26/22 14:50 05/26/22 14:50 05/26/22 14:50 05/26/22 14:50 Oxygen Delivery Method Room Air Weight: 171 lb 1.259 oz Body Mass Index (BMI) 26.8 Intake & Output: Intake and Output for Last 24 Hours 05/24/22 05/25/22 05/26/22 23:59 23:59 23:59 Intake Total 1000 / 1360 1586.66 / 1586.66 Output Total 225 / 225 Balance 1000 / 1360 1361.66 / 1361.66 Lab / Micro Data Result Diagrams: 05/26/22 08:30 05/26/22 08:30 Labs: Laboratory Results - last 24 hr 05/25/22 19:28: WBC 8.2, RBC 3.56 L, Hgb 10.4 L, Hct 34.3 L, MCV 96.3, MCH 29.2, MCHC 30.3 L, RDW Std Deviation 77.6 H, RDW Coeff of Arti 21.6 H, Plt Count 184, MPV 10.6, Immature Gran % (Auto) 0.400, Neut % (Auto) 71.4 H, Lymph % (Auto) 19.9, Hodgeman % (Auto) 6.3, Eos % (Auto) 1.6, Baso % (Auto) 0.4, Absolute Neuts (auto) 5.8, Absolute Lymphs (auto) 1.62, Nucleated RBC % 0, Platelet Estimate ADEQUATE, RBC Morphology N CHROM, Anisocytosis 1+ 05/25/22 19:28: PT 11.6 L, INR 0.9, APTT 22.5 L 05/25/22 19:28: Sodium 140, Potassium 5.9 H, Chloride 111 H, Carbon Dioxide 24.0, Anion Gap 5, BUN 28 H, Creatinine 0.92, Estim Creat Clear Calc 58.49, Est GFR (MDRD) Af Amer 78, Est GFR (MDRD) Non-Af 65, BUN/Creatinine Ratio 30.4 H, Glucose 104, Calcium 8.9, Troponin I High Sens 5 05/25/22 19:28: Magnesium 2.3 05/25/22 20:25: Urine Color Yellow, Urine Clarity Clear, Urine pH 6.0, Ur Specific [place] 1.010, Urine Protein Negative, Urine Glucose (UA) Normal, Urine Ketones Negative, Urine Occult Blood Negative, Urine Nitrite Negative, Urine Bilirubin Negative, Urine Urobilinogen Normal, Ur Leukocyte Esterase 25 H, Urine RBC 0 SEEN, Urine WBC 0-5 SEEN, Ur Squamous Epith Cells 0-5 SEEN, Urine Bacteria RARE, Urine Mucus 0 SEEN 05/26/22 08:30: WBC 5.3, RBC 3.13 L, Hgb 9.2 L, Hct 30.3 L, MCV 96.8, MCH 29.4, MCHC 30.4 L, RDW Std Deviation 77.6 H, RDW Coeff of Arti 21.7 H, Plt Count 136 L, MPV 11.4, Immature Gran % (Auto) 0.200, Neut % (Auto) 56.9, Lymph % (Auto) 31.0, Hodgeman % (Auto) 8.6, Eos % (Auto) 2.9, Baso % (Auto) 0.4, Absolute Neuts (auto) 3.0, Absolute Lymphs (auto) 1.63, Nucleated RBC % 0, Differential Comment SCANNED, Anisocytosis 2+, Microcytosis 1+, Macrocytosis 1+ 05/26/22 08:30: Sodium 144, Potassium 4.7, Chloride 115 H, Carbon Dioxide 21.0, Anion Gap 8, BUN 19 H, Creatinine 0.63, Estim Creat Clear Calc 53.81, Est GFR (MDRD) Af Amer 121, Est GFR (MDRD) Non-Af 100, BUN/Creatinine Ratio 30.0 H, Glucose 84, Calcium 8.3 L, Total Bilirubin 0.40, AST 14 L, ALT 16, Alkaline Phosphatase 112, Total Protein 5.6 L, Albumin 3.0 L, Globulin 2.6, Albumin/G lobulin Ratio 1.2, Triglycerides 58, Cholesterol 118, LDL Cholesterol 49, VLDL Cholesterol 12, HDL Cholesterol 57, TSH 1.83 05/26/22 08:30: Hemoglobin A1c 5.7 H Radiography Diagnostic Testing: Radiology Impression Brain CT 05/25/22 19:13 IMPRESSION: 1. No intracranial pathology. 2. No current evidence of an ischemic or hemorrhagic cerebral infarct. 3. No intracranial mass lesions, hemorrhage or hematomas. 4. Normal sella and pituitary normal posterior fossa and brainstem. 5. Normal paranasal sinuses. 6. Chronic left maxillary sinusitis. The other paranasal sinuses are normal. Electronically Signed: Liang Pardo MD at 20:02 EDT Reading Location ID and State: [facility] / [place] Tel , Service support , ADDENDUM: 05/25/222012 IMPRESSION: 1. No intracranial pathology. 2. No current evidence of an ischemic or hemorrhagic cerebral infarct. 3. No intracranial mass lesions, hemorrhage or hematomas. 4. Normal sella and pituitary normal posterior fossa and brainstem. 5. Normal paranasal sinuses. 6. Chronic left maxillary sinusitis. The other paranasal sinuses are normal. N.B. : The above Results were Read Back by Liang Pardo MD to Petey Sweet MD, and understanding confirmed on 05/25/2022 20:06:25 (ET). Electronically Signed: Liang Pardo MD at 20:02 EDT , Chest X-Ray 05/25/22 19:45 IMPRESSION: 1. Minimal fibrotic changes in both lower lobes. 2. No other evidence of active cardiopulmonary disease. 3. No subdiaphragmatic abnormalities. Electronically Signed: Liang Pardo MD at 21:18 EDT , Hip/Pelvis X-Ray 05/25/22 19:45 IMPRESSION: No hardware complications or acute osseous abnormalities. Electronically Signed: Tom Simms MD at 22:30 EDT , ADDENDUM: 05/26/22 0119 IMPRESSION: 1. Complete right hip prosthesis without adjacent fractures or dislocation. 2. Normal left hip joint without arthritic changes, fractures, dislocation. 3. Normal pelvic bones without fractures. 4. No osseous lytic, sclerotic or mass lesions. 5. Normal sacroiliac joints and symphysis pubis. 6. Findings that may be indicative of mild constipation. Electronically Signed: Liang Pardo MD at 1:12 EDT , Lumbar Spine X-Ray 05/25/22 19:45 IMPRESSION: 1. Mild demineralization. 2. Moderate lumbar levoscoliosis. 3. No lumbar vertebral body fractures or subluxations. 4. Moderate narrowing of all lumbar intervertebral disc spaces with vacuum phenomena is in the L2-3 and L3-4 intervertebral disc spaces. 5. Moderate osteophytic degenerative changes. Electronically Signed: Liang Pardo MD at 21:21 EDT , Echocardiogram 05/25/22 22:17 Interpretation Summary Normal LV size. Left ventricular systolic function is normal. The estimated ejection fraction is 55 %. Bubble contrast study negative for right to left interatrial shunt. Structurally normal valves. Ordering Physician: Hortencia Burrell Referring Physician: JUAN PCP Performed By: Tricia Eubanks RCS Brain MRI 05/26/22 10:00 IMPRESSION: 1. Normal MRI of the brain without contrast. 2. Mucus retention cyst and mucosal thickening in a contracted left maxillary sinus. Sclerotic wall thickening and contraction are most in keeping with chronic sinusitis. This is better seen on CT head of 05/25/2022. Electronically Signed: Lamonte Gibson MD at 12:37 EDT , Head MRA 05/26/22 10:00 IMPRESSION: Normal MRA of the head Electronically Signed: Lamonte Gibson MD at 12:40 EDT , Physical Exam Const alert, oriented x3 and no apparent distress HEENT head/scalp atraumatic, moist oral mucous membranes and oropharynx normal Head and Scalp: normocephalic Eyes PERRL, EOMs intact bilaterally and conjunctivae normal Neck no lymphadenopathy and supple Resp normal respiratory effort, no retractions, no use of accessory muscles and clear to auscultation bilaterally Cardio regular rate, regular rhythm, S1 normal heart sound, S2 normal heart sound and no murmurs GI normal to inspection, nondistended, normoactive bowel sounds, soft to palpation and non-tender Extremity normal to inspection, full ROM and no clubbing, cyanosis or edema Neuro oriented x3, CN's II-XII intact bilaterally and moves all extremities Neuro Narrative: power in lower extremities is 4/5 Psych affect normal Assessment & Plan Assessment/Plan (1) TIA (transient ischemic attack): PLAN: Plan #Facial droop and slurred speech and debility * concerning for CVA * CT of hte brain was negativ for stroke;. MRI of the brain was also negative for stroke * symptoms had been present for 10 days, though slurred speech and facial droop had largely resolved * on aspirin and high intensity statin * PT/OT on board * fall precautions * #Bradycardia * etiology unclear. HR goes down to the high 40s * has also been hypotensive with BP down in the 90s systolic * orthostatics positve by pulse parameter * 2D echo showed EF of * continue gentle hydration in light of hypotension and positive orthostatics. * fall precautions * to follow up with cardiology on outpatient basis * #orthostatic hypotension: as above #COPD: not in exacerbation. Breathing treatment with bronchodilators #History of traumatic brain injury * happened back in 1992. * used to be on antiepileptic drugs but now off them * #CAD: on aspirin and high intensity statin #History of breast and cervical cancer * in remission. To follow up with oncology on outpatient basis * DVT prophylaxis; lovenox Charges/Coding Visit Charges OBSV E&M: 53608 Subsequent observation care L2
[2022-05-26] MEDS: Atorvastatin Calcium 80 MG Tablet PO (20:18)
[2022-05-26] MEDS: traZODone 100 MG Tablet 300 MG PO (20:19)
[2022-05-26] MEDS: ARIPiprazole 5 MG Tablet PO (20:19)
--- NOTE | 2022-05-26 20:31 | NURSING ---
Patient requested to have medications given early due to PTSD and states and wanting to take meds around same time as home given medications as ordered.
[2022-05-27] VITALS (10 sets, daily range): BP systolic 96–130; BP diastolic 54–67; PULSE 48–68; RESP 16; TEMP 36.3–37.4; O2SAT 93–96; BMI 26.8
[2022-05-27] MEDS: MELATONIN 3 MG TABLET PO ×2 (02:58→23:47)
[2022-05-27] MEDS: 0.9% Normal Saline 1,000 ML 100 ML IV (06:26)
[2022-05-27] MEDS: diazePAM 5 MG Tablet PO ×3 (06:30→21:07)
[2022-05-27] MEDS: Methocarbamol 750 MG Tablet PO ×3 (06:31→21:03)
[2022-05-27] MEDS: Budesonide Respules 0.5 MG/2 ML AMPUL.NEB. INHALATION ×2 (06:50→19:59)
[2022-05-27] MEDS: Aspirin 81 MG TAB.CHEW PO (08:52)
[2022-05-27] MEDS: Pantoprazole Sodium 40 MG Tablet 80 MG PO (08:52)
[2022-05-27] MEDS: Benzonatate 100 MG Capsule 200 MG PO (08:52)
[2022-05-27] MEDS: Enoxaparin 40 MG/0.4 ML Syringe SC (08:52)
--- NOTE | 2022-05-27 10:24 | PN.HOSP_ITS ---
Subjective Subjective Patient seen and examined. She is not complaints today and had an uneventful night. However she says she feels too weak to go home and would want to going to a rehab facility. Her bradycardia remains and heart rate is 48 this morning. However she tells me this is longstanding. She has otherwise remained hemody namically stable. Objective Data Objective Data Vital Signs: Vital Signs Temp Pulse Resp BP Pulse Ox O2 Del Method 97.5 F L 48 L 16 106/64 93 Room Air 05/27/22 08:50 05/27/22 08:50 05/27/22 08:50 05/27/22 08:50 05/27/22 08:50 05/27/22 08:50 Oxygen Delivery Method Room Air Weight: 172 lb 9.951 oz Body Mass Index (BMI) 26.8 Intake & Output: Intake and Output for Last 24 Hours 05/25/22 05/26/22 05/27/22 23:59 23:59 23:59 Intake Total 1000 / 1360 2643.33 / 2643.33 1000 / 1000 Output Total 225 / 225 Balance 1000 / 1360 2418.33 / 2418.33 1000 / 1000 Lab / Micro Data Result Diagrams: 05/26/22 08:30 05/26/22 08:30 Radiography Diagnostic Testing: Radiology Impression Echocardiogram 05/25/22 22:17 Interpretation Summary Normal LV size. Left ventricular systolic function is normal. The estimated ejection fraction is 55 %. Bubble contrast study negative for right to left interatrial shunt. Structurally normal valves. Ordering Physician: Hortencia Burrell Referring Physician: JUAN PCP Performed By: Tricia Eubanks RCS Brain MRI 05/26/22 10:00 IMPRESSION: 1. Normal MRI of the brain without contrast. 2. Mucus retention cyst and mucosal thickening in a contracted left maxillary sinus. Sclerotic wall thickening and contraction are most in keeping with chronic sinusitis. This is better seen on CT head of 05/25/2022. Electronically Signed: Lamonte Gibson MD at 12:37 EDT , Head MRA 05/26/22 10:00 IMPRESSION: Normal MRA of the head Electronically Signed: Lamonte Gibson MD at 12:40 EDT , Physical Exam Const alert, oriented x3 and no apparent distress HEENT head/scalp atraumatic, moist oral mucous membranes and oropharynx normal Head and Scalp: normocephalic Mouth: oral and palatal mucosa normal Eyes PERRL, EOMs intact bilaterally and conjunctivae normal Neck no lymphadenopathy and supple Resp normal respiratory effort, no retractions, no use of accessory muscles and clear to auscultation bilaterally Cardio regular rate, regular rhythm, S1 normal heart sound, S2 normal heart sound and no murmurs GI normal to inspection, nondistended, normoactive bowel sounds, soft to palpation and non-tender Extremity normal to inspection, full ROM and no clubbing, cyanosis or edema Neuro oriented x3, CN's II-XII intact bilaterally and moves all extremities Neuro Narrative: power in lower extremities is 4/5 Motor Exam: strength 5/5 throughout Psych affect normal Assessment & Plan Assessment/Plan (1) TIA (transient ischemic attack): PLAN: Plan #Facial droop and slurred speech and debility * resolved * CT of hte brain was negativ for stroke;. MRI of the brain was also negative for stroke * symptoms had been present for 10 days, though slurred speech and facial droop had largely resolved * on aspirin and high intensity statin * PT/OT on board * fall precautions * #Bradycardia * etiology unclear. HR goes down to the high 40s. Says it has been longstanding * stable. * follow up with cardiology on outpatient basis * 2D echo showed EF of 55% with no regional wall motion abnormalities seen and normal LV systolic function * * #orthostatic hypotension: stab le #COPD: not in exacerbation. Breathing treatment with bronchodilators #History of traumatic brain injury * happened back in 1992. * used to be on antiepileptic drugs but now off them * #CAD: on aspirin and high intensity statin #History of breast and cervical cancer * in remission. To follow up with oncology on outpatient basis * DVT prophylaxis; lovenox Disposition: now wants to go to rehab on discharge. Case management to help facilitate discharge planning Charges/Coding Visit Charges Inpatient E&M: 80467 Subs Hosp L2
[2022-05-27] MEDS: oxyCODONE 5 MG Tablet PO ×2 (13:09→20:48)
[2022-05-27] MEDS: Acetaminophen 325 MG Tablet 650 MG PO ×2 (13:09→17:58)
[2022-05-27] MEDS: ARIPiprazole 5 MG Tablet PO (21:03)
[2022-05-27] MEDS: traZODone 100 MG Tablet 300 MG PO (21:03)
[2022-05-27] MEDS: Atorvastatin Calcium 80 MG Tablet PO (21:03)
[2022-05-28] VITALS (13 sets, daily range): BP systolic 90–115; BP diastolic 53–62; PULSE 39–59; RESP 16–20; TEMP 36.1–37.1; O2SAT 94–97; BMI 26.8
[2022-05-28] MEDS: oxyCODONE 5 MG Tablet PO ×4 (02:51→23:45)
[2022-05-28] MEDS: Acetaminophen 325 MG Tablet 650 MG PO ×4 (02:51→23:46)
[2022-05-28] MEDS: diazePAM 5 MG Tablet PO ×3 (06:35→22:07)
[2022-05-28] MEDS: Methocarbamol 750 MG Tablet PO ×3 (06:37→22:04)
[2022-05-28] MEDS: Budesonide Respules 0.5 MG/2 ML AMPUL.NEB. INHALATION ×2 (07:10→20:26)
[2022-05-28] MEDS: Enoxaparin 40 MG/0.4 ML Syringe SC (08:04)
[2022-05-28] MEDS: Benzonatate 100 MG Capsule 200 MG PO (08:04)
[2022-05-28] MEDS: Pantoprazole Sodium 40 MG Tablet 80 MG PO (08:05)
[2022-05-28] MEDS: Aspirin 81 MG TAB.CHEW PO (08:05)
--- NOTE | 2022-05-28 09:45 | CASEMGMT ---
SW reviewed chart and noted that patient is interested in going somewhere for short term rehab. Patient has [employer] so SW went to [employer] website to look up in network facilities. The insurance card [facility] has on file indicates patient has a Medicare PPO. However, when SW put patient's insurance ID in computer on [employer]'s website and it indicated patient has an HMO. Patient came to [place] from [place] recently. According to [employer] website there are no in network facilities in the area. SW called [employer] and the auto claim representative said patient has an HMO policy. SW asked if he could give SW some in network SNF's in this area and he transferred SW back to the computer automated team assembly line machine operator which did not understand SW's request. SW spoke with patient. Introduced self and role at [facility]. Patient showed SW her insurance card and it matches the one [facility] has on file. SW let her know that insurance is currently stating she has an HMO policy and that [facility] is out of network and there are no facilities in this area. Patient said she will call [employer] and let them know she is in [place]. Patient said she wants to go to [facility]. SW told her SW will make the referral and hopefully find out more about her insurance. SW made referral to [facility]. SW did print a list of SNF providers including quality and resource use data and consistent with patient?s preferred geographic region, medical needs, and insurance network were provided from the [facility] Guide. SW will provide patient with this list. Betty CORREIA
--- NOTE | 2022-05-28 11:22 | CASEMGMT ---
Kasey from TCU indicated they ran patient's insurance and they are not in network. NATE let patient now this information and provided her with a a list of SNF?providers including quality and resource use data and consistent with patient?s preferred geographic region, medical needs, and insurance network were provided from the [facility] Guide. Patient asked for recommendations. SW let patient know SW is not able to give suggestions, but there are Medicare star ratings listed on the sheet she was given. Patient wanted a few minutes to look at the list. SW went back to patient's room and she said her sister is coming in to help her decide on a facility. However, she said it will likely be [facility]. NATE notified Yarely d/c development and planning engineer to please send a referral to [facility]. Betty CORREIA
--- NOTE | 2022-05-28 11:23 | CASEMGMT ---
Discharge Insulator Apprentice Yarely flores lead dental assistant sent referral to [facility] via [facility]. Will follow up. Plan: [facility], Waiting Acceptance Yarely Borja Discharge Insulator Apprentice
--- NOTE | 2022-05-28 11:59 | CASEMGMT ---
SW will have to complete a PASRR as patient is observation status. Patient will trip the screen and require Board of DD review before she can be discharged to a penitentiary facility. SW attempted to complete PASRR and get it started, however SW must have the accepting SNF listed. Once patient is accepted at a facility SW will submit PASRR. SW also gave patient a Medicaid application per her request. Betty Webb SALES AGENT BREN
--- NOTE | 2022-05-28 13:51 | CASEMGMT ---
SW spoke with patient and she completed a Medicaid application. SW faxed application to [facility]. Patient had 4 other choices for SNF: [facility], [facility]. Betty CORREIA
--- NOTE | 2022-05-28 13:57 | CASEMGMT ---
Discharge Process Safety Engineering Technologist Yarely lorenzo/janna gynecological assistant sent referral as well to [facility] via [facility]. Will follow up. Plan: [facility]. [facility], Waiting Acceptance Yarely Borja Discharge Process Safety Engineering Technologist
--- NOTE | 2022-05-28 14:28 | CASEMGMT ---
Discharge Mine Captain Marianne reached out. Patient has been accepted at [facility]. Yarely reached out and patient has been accepted at [facility]. Plan: Yarely Borja Discharge Mine Captain
--- NOTE | 2022-05-28 15:56 | CASEMGMT ---
NATE let patient know that [facility] can accept her pending insurance. Betty Webb RCP BREN
--- NOTE | 2022-05-28 16:12 | CHAPLAIN ---
Type of Pastoral Visit _x__ Initial Visit ___ Follow-up Visit ___ On-call Visit ___ General Patient Visit ___ Spiritual Assessment ___ Family Conference ___ Bereavement ___ Rapid Response ___ Code Blue ___ Other (describe below) Pastoral Care Referral From _x__ Patient ___ Family ___ Nurse ___ Physician ___ Process Control Programmer ___ Veterinarian ___ Other (describe below) Sacrament/Intervention _x__ Active listening ___ Anointing ___ Yarsanism ___ Bereavement ___ Communion ___ Ele exploration ___ _x__ Life review _x__ Prayer ___ Reconciliation ___ Sacrament of Sick ___ Supportive presence ___ Wedding ___ Other (describe below) Pastoral Comments patient states that she is doing some better than yesterday; pt states that she just moved a couple of days ago to [place]; pt says she will need housing; a niece lives in this area; pt is of the [place] ele but has no connection to a local [place]; pt welcomes prayer and presence for support
--- NOTE | 2022-05-28 18:36 | PCM.PN.HOSP ---
Subjective Subjective Patient was seen and examined today, she has no complaints of any shortness of breath, fevers, or chills. We are currently awaiting approval for the patient to go to a nursing home facility for short-term skilled rehab services. Objective Data Objective Data Vital Signs: Vital Signs Temp Pulse Resp BP Pulse Ox O2 Del Method 97.5 F L 47 L 20 H 115/62 94 Room Air 05/28/22 17:26 05/28/22 17:26 05/28/22 17:05/28/22 17:05/28/22 17:05/28/22 17:26 Oxygen Delivery Method Room Air Weight: 78.3 kg Body Mass Index (BMI) 26.8 Intake & Output: Intake and Output for Last 24 Hours 05/26/22 05/27/22 05/28/22 23:59 23:59 23:59 Intake Total 2643.33 / 2643.33 2313.33 / 2313.33 480 / 480 Output Total 225 / 225 Balance 2418.33 / 2418.33 2313.33 / 2313.33 480 / 480 Lab / Micro Data Result Diagrams: 05/26/22 08:30 05/26/22 08:30 Radiography Diagnostic Testing: Radiology Impression Carotid Duplex 05/25/22 22:33 Interpretation Summary Minimal calcific plaque in the proximal right internal carotid artery with less than 50% stenosis Less than 50% stenosis right external carotid artery Minimal irregular calcific plaque at the proximal left internal carotid artery with less than 50% stenosis Less than 50% stenosis left external carotid artery Patent and antegrade vertebral arteries bilaterally Ordering Physician: Hortencia Burrell Performed By: Ekaterina De Guzman RDCS, RVT Physical Exam Const alert, oriented x3 and no apparent distress Constitutional Narrative: Patient appears older than her stated age General Appearance: cooperative, well kempt and well developed Orientation / Consciousness: awake, oriented to person, oriented to place and oriented to time HEENT normocephalic, head/scalp atraumatic and moist oral mucous membranes Eyes PERRL, EOMs intact bilaterally and conjunctivae normal Neck supple, no JVD, thyroid normal and no carotid bruits General: trachea midline Resp normal respiratory effort, no retractions, no use of accessory muscles and clear to auscultation bilaterally Auscultation: Negative for rales, rhonchi or wheezes Cardio regular rate, regular rhythm, S1 normal heart sound, S2 normal heart sound, no murmurs, no rub and no gallops GI normal to inspection, nondistended, normoactive bowel sounds, soft to palpation, non-tender and non-distended Extremity no clubbing, cyanosis or edema Skin no rashes or lesions noted General Skin Exam: no breakdown Neuro oriented x3, CN's II-XII intact bilaterally, moves all extremities, no focal motor deficits and no sensory deficits noted Sensorium / Orientation: awake and alert Speech: speech normal Psych affect normal Assessment & Plan Assessment/Plan (1) Facial droop: PLAN: Plan 1. Right facial droop-resolved at this time, etiology unclear, I do not feel patient had a TIA or stroke, continue physical therapy #2 chronic obstructive pulmonary disease-continue present treatment #3 coronary artery disease-continue simvastatin #4 past history of traumatic brain [id number]-[id number] care, management, recovery, and prognosis #5 acute debility-patient will need at least temporary placement in a nursing home facility for nursing home services. We are awaiting confirmation of her insurance. Charges/Coding Visit Charges OBSV E&M: 22193 Subsequent observation care L2
[2022-05-28] MEDS: Atorvastatin Calcium 80 MG Tablet PO (22:03)
[2022-05-28] MEDS: traZODone 100 MG Tablet 300 MG PO (22:03)
[2022-05-28] MEDS: ARIPiprazole 5 MG Tablet PO (22:03)
[2022-05-28] MEDS: 0.9% Saline Lock 10 ML Syringe IV (22:04)
[2022-05-28] MEDS: MELATONIN 3 MG TABLET PO (23:48)
[2022-05-29] VITALS (8 sets, daily range): BP systolic 93–105; BP diastolic 51–66; PULSE 40–58; RESP 16; TEMP 36.3–36.6; O2SAT 94–98; BMI 26.8
[2022-05-29] MEDS: Methocarbamol 750 MG Tablet PO ×2 (06:30→13:09)
[2022-05-29] MEDS: Budesonide Respules 0.5 MG/2 ML AMPUL.NEB. INHALATION (07:05)
[2022-05-29] MEDS: Acetaminophen 325 MG Tablet 650 MG PO (08:47)
[2022-05-29] MEDS: Aspirin 81 MG TAB.CHEW PO (08:48)
[2022-05-29] MEDS: Enoxaparin 40 MG/0.4 ML Syringe SC (08:48)
[2022-05-29] MEDS: Benzonatate 100 MG Capsule 200 MG PO (08:48)
[2022-05-29] MEDS: oxyCODONE 5 MG Tablet PO (08:48)
[2022-05-29] MEDS: Pantoprazole Sodium 40 MG Tablet 80 MG PO (08:48)
--- NOTE | 2022-05-29 08:59 | CASEMGMT ---
SW was informed that [facility] cannot get authorization for patient as her insurance is good in [place] only. Per Criselda at [facility] their [employer] technical account representative said the Hand Etcher Helper can call and have this changed. SW spoke with patient and let her know this information. Patient said she called the number on the back of the insurance card and changed from [place] to [place]. SW called the number on the back of the insurance card. SW spoke with a technical account representative who indicated the patient has to change her insurance from [place] to [place]. SW told the technical account representative that the patient did this already. SW was told that the change can take 48-72 hours to show up. SW will talk with therapy and patient to help determine if home with some sort of assistance would be possible. For example, [facility]. Betty CORREIA
--- NOTE | 2022-05-29 12:16 | DCINST_ITS ---
Discharge Instructions Diet Discharge Diet: No restrictions Activity Discharge Activity: Return to Normal Activity Weight Bearing Status: Full weight bearing Follow Up Care Test Results: Test results from this visit will be discussed in further detail at your follow- up appointment, if applicable. Discharge Plan Admission Admit Date/Time: 05/25/22 20:58 Primary Reason for Your Visit: debility, COPD Attending Provider: Elijah Leone Primary Care Provider: Care Physician,No Primary Consulting Providers: Hortencia Burrell ; Taylor Godoy Discharge Orders/Prescriptions Prescriptions: Continued omeprazole 40 mg Capsule,Delayed Release(Dr/Ec) 80 mg PO DAILY simvastatin 40 mg Tablet 40 mg PO QHS oxycodone-acetaminophen 5-325 mg Tablet 1 tab PO Q6H PRN (Reason: Pain) methocarbamol 750 mg Tablet 750 mg PO TID trazodone 150 mg Tablet 300 mg PO QHS diclofenac sodium 75 mg Tablet,Delayed Release (Dr/Ec) 75 mg PO BID diazepam 5 mg Tablet 5 mg PO TID aripiprazole 5 mg Tablet 5 mg PO QHS albuterol sulfate [Ventolin HFA] 90 mcg/actuation Hfa Aerosol Inhaler INHALATION Q4H PRN PRN (Reason: sob) budesonide-formoterol [Symbicort] 80-4.5 mcg/actuation Hfa Aerosol Inhaler 2 puff INHALATION BID Discontinued benzonatate 200 mg Capsule 200 mg PO DAILY Referrals / Follow Up: Care Physician,No Primary [Primary Care Provider] - NOT,DEFINED [Non-Staff] - Disposition Disposition (needs filled in before D/C Order can be placed): Home, Self Care
[2022-05-29] MEDS: diazePAM 5 MG Tablet PO (13:09)
--- NOTE | 2022-05-29 13:12 | CASEMGMT ---
SW spoke with Jerri GIORDANO. Jerri had patient practice steps as patient has several at home. Patient did relatively well. She did need a rest break, but patient said she would need a rest break prior to this hospitalization also. Patient told therapy her biggest concern with going home is her bed is on the floor. It was felt that patient would be fine going home with assistance. SW met with patient. SW asked patient about her biggest concern with going home. Patient said she has steps she has to go up and down to get to kitchen and shower. SW told patient SW spoke with therapy and she did relatively well with steps and that she needed a rest break, but this is no different than her normal. Patient said the steps are steep and she doesn't want to fall. SW listened and acknowledged her concern. SW told her no one wants her to fall. SW told patient that her insurance told SW it could take 48-72 hours to get her insurance switched over to [place]. SW explained to patient that once it is switched to [place] we will have to wait on insurance to approve her. SW explained that she continues to improve with therapy every day and by the time insurance looks at her therapy notes there is a good chance she would not get approved. SW explained patient is medically ready. SW also explained that SW will not be able to set her up with home health due to her insurance and no primary care doctor. SW told patient about [facility]. Patient was open to a referral being made. SW will talk with the [facility] SW to explain the situation. Patient said she wants to take a shower at [facility] before she goes home. SW let her know NATE will notify RN. MAYCOL Omalley made referral to [facility]. Betty CORREIA
--- NOTE | 2022-05-29 13:16 | PHA.DC.MR ---
Pharmacy Service has performed discharge medication reconciliation for this patient. The patient's discharge medication list was reviewed for discrepancies and discrepancies were resolved. Home Medications albuterol sulfate 90 mcg/actuation aerosol inhaler (Ventolin HFA) inhalation Q4H PRN PRN sob 05/25/22 aripiprazole 5 mg tablet 5 mg PO QHS mental health 05/25/22 budesonide-formoterol HFA 80 mcg-4.5 mcg/actuation aerosol inhaler (Symbicort) 2 puff inhalation BID breathing 05/25/22 diazepam 5 mg tablet 5 mg PO TID anxiety 05/25/22 diclofenac sodium 75 mg tablet,delayed release 75 mg PO BID pain 05/25/22 methocarbamol 750 mg tablet 750 mg PO TID pain 05/25/22 omeprazole 40 mg capsule,delayed release 80 mg PO DAILY reflux 05/25/22 oxycodone-acetaminophen 5 mg-325 mg tablet 1 tab PO Q6H PRN Pain 05/25/22 simvastatin 40 mg tablet 40 mg PO QHS cholesterol 05/25/22 trazodone 150 mg tablet 300 mg PO QHS sleep 05/25/22
--- NOTE | 2022-05-29 19:15 | DS.PCM_ITS ---
Providers Date of Admission: 05/25/22 Date of Discharge: 05/29/22 Primary Care Physician: No Primary Care Phys Reason For Visit: CVA VERSUS COMPLEX MIGRAINE Diagnosis Discharge Diagnosis (1) Facial droop: Status: Acute Code(s): R29.810 - Facial weakness Plan 1. Right facial droop-resolved at this time, etiology unclear, I do not feel patient had a TIA or stroke, continue physical therapy #2 chronic obstructive pulmonary disease-continue present treatment #3 coronary artery disease-continue simvastatin #4 past history of traumatic brain oolfvs-gszpea-jrigwxsbgxo care, management, recovery, and prognosis #5 acute debility-patient will need at least temporary placement in a alf facility for alf services. We are awaiting confirmation of her insurance. Medications at Discharge Home Medications albuterol sulfate 90 mcg/actuation aerosol inhaler (Ventolin HFA) inhalation Q4H PRN PRN sob 05/25/22 aripiprazole 5 mg tablet 5 mg PO QHS mental health 05/25/22 budesonide-formoterol HFA 80 mcg-4.5 mcg/actuation aerosol inhaler (Symbicort) 2 puff inhalation BID breathing 05/25/22 diazepam 5 mg tablet 5 mg PO TID anxiety 05/25/22 diclofenac sodium 75 mg tablet,delayed release 75 mg PO BID pain 05/25/22 methocarbamol 750 mg tablet 750 mg PO TID pain 05/25/22 omeprazole 40 mg capsule,delayed release 80 mg PO DAILY reflux 05/25/22 oxycodone-acetaminophen 5 mg-325 mg tablet 1 tab PO Q6H PRN Pain 05/25/22 simvastatin 40 mg tablet 40 mg PO QHS cholesterol 05/25/22 trazodone 150 mg tablet 300 mg PO QHS sleep 05/25/22 Hospital Course Operations None Procedures 2-D Echocardiogram Summary of Care Provided Minutes Spent on Discharge: 31 Hospital Course: This 66-year-old white female was seen in the emergency room at [facility] with complaints of intermittent slurred speech and a right facial droop which started approximately 10 days prior to being seen in the emergency room. Stroke team was not called, patient had a prior history of traumatic brain injury. On examination, slight facial droop was noted to be present, and a stroke score was felt to be 3. CT of the brain was negative for any acute findings, CBC showed a normal white blood cell count and hemoglobin of 10.4. Potassium was 5.9 but this was felt to be due to hemolysis. Urinalysis was negative. Patient complained of a headache also in the emergency room. Patient was placed in observation status on PCU to rule out stroke, she underwent an echocardiogram which was unremarkable did not show an ASD. MRI of the brain without contrast was unremarkable, MRA of the head was unremarkable. Carotid duplex ultrasound did not show any severe vascular disease. Patient was seen by PT and OT, patient at first wanted to be placed in a long term stating that she could not perform ADLs in the residence she was living at, she was evaluated however by PT and OT and in the end requested to go home. She was not felt to be a candidate for alf placement. On 05/29/2022 patient was seen and examined: On examination she appeared in good health and spirits, she does not appear to be in any distress. Vital signs as documented. Skin warm and dry and without overt rashes. Neck without JVD, thyroid appears normal, trachea is midline, neck is supple. Lungs clear, normal air movement was noted. Heart exam notable for regular rhythm, normal sounds and absence of murmurs, rubs or gallops. Abdomen unremarkable and without evidence of organomegaly, masses, or abdominal aortic enlargement, bowel sounds are present in all 4 quadrants, no abdominal tenderness was noted. Extremities nonedematous, no cyanosis was noted, no clubbing was noted. Neuro: Cranial nerves II through XII are grossly intact, no focal motor deficits were noted, s ensation to light touch and pinprick is intact, motor exam 5/5 throughout. Psych: Patient is alert and oriented x3, affect was flat On 05/29/2022, patient was seen and examined and felt to be stable for discharge home. Weight / BMI Weight Weight: 77.2 kg Body Mass Index (BMI) 26.8 ABG / Lab / Microbiology Data Result Diagrams: 05/26/22 08:30 05/26/22 08:30 D/C Instructions Discharge Diet: No restrictions Weight Bearing Status: Full weight bearing Meaningful Use Info Meaningful Use Diagnoses (Choose all that apply): None applicable Discharge Plan Admission Admit Date/Time: 05/25/22 20:58 Primary Reason for Your Visit: debility, COPD Attending Provider: Elijah Leone Primary Care Provider: Care Physician,No Primary Consulting Providers: Hortencia Burrell ; Taylor Godoy Discharge Orders/Prescriptions Prescriptions: Continued omeprazole 40 mg Capsule,Delayed Release(Dr/Ec) 80 mg PO DAILY simvastatin 40 mg Tablet 40 mg PO QHS oxycodone-acetaminophen 5-325 mg Tablet 1 tab PO Q6H PRN (Reason: Pain) methocarbamol 750 mg Tablet 750 mg PO TID trazodone 150 mg Tablet 300 mg PO QHS diclofenac sodium 75 mg Tablet,Delayed Release (Dr/Ec) 75 mg PO BID diazepam 5 mg Tablet 5 mg PO TID aripiprazole 5 mg Tablet 5 mg PO QHS albuterol sulfate [Ventolin HFA] 90 mcg/actuation Hfa Aerosol Inhaler INHALATION Q4H PRN PRN (Reason: sob) budesonide-formoterol [Symbicort] 80-4.5 mcg/actuation Hfa Aerosol Inhaler 2 puff INHALATION BID Discontinued benzonatate 200 mg Capsule 200 mg PO DAILY Referrals / Follow Up: Care Physician,No Primary [Primary Care Provider] - NOT,DEFINED [Non-Staff] - Disposition Disposition (needs filled in before D/C Order can be placed): Home, Self Care Charges/Coding Visit Charges OBS E&M: 46405 Observation care discharge
== END 2022-05-29 12:31 | disposition home or self-care (01) ==
LOC: ED 19:21 → PCU 21:05
PROVIDERS: Admitting Provider Family Medicine; Emergency Provider Student in an Organized Health Care Education/Training Program; Visit Provider Internal Medicine
DX: R29.810 Facial weakness (principal); J44.9 Chronic obstructive pulmonary disease, unspecified; G40.901 Epilepsy, unspecified, not intractable, with status epilepticus; I25.10 Atherosclerotic heart disease of native coronary artery without angina pectoris; J32.0 Chronic maxillary sinusitis; S70.02XA Contusion of left hip, initial encounter; M62.81 Muscle weakness (generalized); S70.01XA Contusion of right hip, initial encounter; Z96.641 Presence of right artificial hip joint; R47.81 Slurred speech; R53.81 Other malaise; Z79.51 Long term (current) use of inhaled steroids; Z79.899 Other long term (current) drug therapy; Z87.820 Personal history of traumatic brain injury; I25.2 Old myocardial infarction; Y93.9 Activity, unspecified; W19.XXXA Unspecified fall, initial encounter; Y92.9 Unspecified place or not applicable; R00.1 Bradycardia, unspecified; I95.1 Orthostatic hypotension
CPT/HCPCS: 70450; 70544; 70551; 71045; 72100; 73521; 80048; 80053; 80061; 81001; 83036; 83735; 84443; 84484; 85025; 85610; 85730; 92507; 92522; 92610; 93005; 93306; 93880; 94640; 96361; 96372; 96374; 96375; 97110; 97116; 97162; 97165; 97530; 97535; 97802; 99218; 99285; J7030; P9612; Q9957; A4216; G0378

== ENCOUNTER 2022-06-04 17:37 | Emergency (ER) | payer MEDICARE, SELFPAY ==
[2022-06-04 17:38] VITALS: BP 81/53; PULSE 46; RESP 15; TEMP 36.3; O2SAT 96; BMI 28.2
[2022-06-04 17:44] VITALS: BP 78/49; PULSE 42; RESP 15; O2SAT 97
--- NOTE | 2022-06-04 17:59 | ED.RN ---
dr informed of patient and s/s. per ed dr we need to wait for evaluation. recent admission for tia. maxine bashir rn [id number]
--- NOTE | 2022-06-04 18:17 | EKG12_ITS ---
Test Reason : DYSRHYTHMIA Blood Pressure : / mmHG Vent. Rate : 037 BPM Atrial Rate : 037 BPM P-R Int : 138 ms QRS Dur : 110 ms QT Int : 548 ms P-R-T Axes : 041 013 035 degrees QTc Int : 430 ms Marked sinus bradycardia Low voltage QRS Confirmed by ALPHONSO BREWER, AVTAR ([id number]), supervising editor news reel FLORENCIO SUTTON ([id number]) on 06/06/2022 9:25:35 AM Referred By: BRITTANI Confirmed By:AVTAR WERNER MD
--- NOTE | 2022-06-04 18:17 | CT_ITS ---
STUDY: CT BRAIN WITHOUT CONTRAST REASON FOR EXAM: Female, 66 years old. headache RADIATION DOSAGE (If Supplied By Facility): CTDIvol = ( 44.99 ) mGy, DLP = ( 812.98 ) mGycm TECHNIQUE: Transaxial CT imaging of the brain was performed without administration of intravenous contrast material. Individualized dose optimization techniques were used for this CT. COMPARISON: No relevant priors. FINDINGS: Normal soft tissue structures. Normal calvarium. Normal size ventricles and extra-axial spaces for the patient''s age. Normal white matter tracts of the cerebral hemispheres. There is no intracranial hemorrhage. There are no findings of an acute ischemic infarction. Mucosal thickening in the left maxillary sinus. CT/Brain/Head without Contrast IMPRESSION: No acute findings. Mild chronic sinusitis. Electronically Signed: Elsa Luis MD at 19:24 EDT Reading Location ID and State: [id number] / Tel , Service support ,
[2022-06-04 18:20] LABS: Bedside Glucose 108 mg/dL (74-106)
--- NOTE | 2022-06-04 18:20 | ED.VIS.STROK ---
HPI History of Present Illness Chief Complaint: Back Narrative Narrative: 66-year-old female presenting initially with a chief complaint of back pain. She states this is a chronic issue. She took Tylenol and ibuprofen has not improved. She complains of pain in the lumbar spine. She denies any trauma. No loss of bladder or bowel control. Patient also reports that she is having a very severe headache. She has had a headache and problems in the past. She has a history of traumatic brain injury distantly. She states previously she was on seizure medications after that traumatic brain injury. She has a history of TIA. Patient recently seen for similar symptoms of headache. Patient has slight blurring of vision on the right eye as well as right arm and leg weakness which is what she presented with the last time she was here. At that point she had been having the symptoms intermittently for 10 days after leaving her home state and traveling to [facility] to live with family. She was admitted after having a CT of the brain and intermittent symptoms. She had an MRI, MRI, MRA, carotid studies. These were all normal. Patient states he has not been able to obtain follow-up as an outpatient yet. [facility] Medical History CAD (coronary artery disease) COPD (chronic obstructive pulmonary disease) Grand mal seizure Heart attack History of breast cancer History of cervical cancer History of migraine TBI (traumatic brain injury) TIA (transient ischemic attack) Home Medications albuterol sulfate 90 mcg/actuation aerosol inhaler (Ventolin HFA) inhalation Q4H PRN PRN sob 05/25/22 [History Last Taken Unknown] aripiprazole 5 mg tablet 5 mg PO QHS mental health 05/25/22 [History Last Taken 05/24/22] budesonide-formoterol HFA 80 mcg-4.5 mcg/actuation aerosol inhaler (Symbicort) 2 puff inhalation BID breathing 05/25/22 [History Last Taken Unknown] diazepam 5 mg tablet 5 mg PO TID anxiety 05/25/22 [History Last Taken Unknown] diclofenac sodium 75 mg tablet,delayed release 75 mg PO BID pain 05/25/22 [History Last Taken 05/25/22] methocarbamol 750 mg tablet 750 mg PO TID pain 05/25/22 [History Last Taken 05/25/22] omeprazole 40 mg capsule,delayed release 80 mg PO DAILY reflux 05/25/22 [History Last Taken 05/25/22] oxycodone-acetaminophen 5 mg-325 mg tablet 1 tab PO Q6H PRN Pain 05/25/22 [History Last Taken Unknown] simvastatin 40 mg tablet 40 mg PO QHS cholesterol 05/25/22 [History Last Taken 05/24/22] trazodone 150 mg tablet 300 mg PO QHS sleep 05/25/22 [History Last Taken 05/24/22] Allergy/AdvReac Type Severity Reaction Status Date / Time divalproex sodium Allergy Angioedema Verified 06/04/22 17:38 [From Depakote] Influenza Virus Vaccines Allergy Angioedema Verified 06/04/22 17:38 [flu shot] phenytoin [From Dilantin] Allergy Hives Verified 06/04/22 17:38 propofol Allergy Angioedema Verified 06/04/22 17:38 Iodinated Contrast Media AdvReac Intermediate Angioedema Verified 06/04/22 17:38 Latex, Natural Rubber AdvReac Swelling Verified 06/04/22 17:38 meloxicam AdvReac Other Verified 06/04/22 17:38 oxybutynin [From Ditropan] AdvReac Swelling Verified 06/04/22 17:38 pravastatin AdvReac Swelling Verified 06/04/22 17:38 tetracycline AdvReac Itching Verified 06/04/22 17:38 tramadol AdvReac Other Verified 06/04/22 17:38 Surgical History History of total right hip replacement Hx of cholecystectomy S/P ALLAN (total abdominal hysterectomy) Social History household members: other details: Living with her daughter. Smoking Status: Never smoker alcohol intake: never substance use type: does not use ROS ROS ED Constitutional Constitutional ED: Denies chills or fever(s) Eyes Eyes: Reports change in vision right ENT ENT ED: Denies rhinorrhea or sore throat Cardiovascular Cardiovascular: Denies chest pain or palpitations Respiratory/Chest Respiratory/Chest: Denies cough or dyspnea Gastrointestinal Gastrointestinal: Denies abdominal pain or constipation Genitourinary Genitourinary ED: Denies dysuria or hematuria Musculoskeletal Musculoskeletal: Reports back pain Integumentary Denies abscess or Abrasions Neurologic Neurologic: Reports headache(s) and paresthesias RUE and RLE Psychiatric Psychiatric: Denies anxiety or depression Endocrine Endocrinology: Denies polydipsia or polyphagia EXAM Physical Exam Const Vital Signs: 06/04/22 17:38 06/04/22 17:44 06/04/22 19:37 Temperature 97.3 F L Temperature Source Temporal Pulse Rate 46 L 42 L 44 L Respiratory Rate 15 15 12 Blood Pressure 81/53 L 78/49 L 89/52 L Blood Pressure Mean 62 58 64 Pulse Ox 96 97 96 Oxygen Delivery Method Room Air Room Air Room Air 06/04/22 21:09 Temperature Temperature Source Pulse Rate 39 L Respiratory Rate 12 Blood Pressure 107/57 L Blood Pressure Mean 73 Pulse Ox 98 Oxygen Delivery Method Room Air Positive well nourished General Appearance ED: NAD HEENT Reports moist mucous membranes Eyes PERRL and EOMs intact bilaterally Neck no lymphadenopathy Chest Wall inspection of chest normal and palpation of chest normal Resp normal respiratory effort and clear to auscultation bilaterally GI normal to inspection, nondistended, normoactive bowel sounds Back/Spine no CVA tenderness Back/Spine Narrative: Diffuse lumbar paraspinal muscular back pain. Bilaterally. No midline spinal deformity or step-off Neuro oriented x3 and CN's II-XII intact bilaterally Sensorium / Orientation: alert Psych mental status grossly normal Skin no wounds General Skin Exam: Negative for jaundice NIHSS NIHSS Initial: 1a Level of Consciousness: 0 1b LOC Questions (Score 2 if aphasic/stupor): 0 1c LOC Commands (Only score 1st attempt): 0 2 Best Gaze (If aphasic, use reflexive mvmts.): 0 3 Visual: 1 4 Facial Palsy: 0 5 Motor Arm Right (UN = amputation/fusion): 1 5 Motor Arm Left: 0 6 Motor Leg Right: 1 6 Motor Leg Left: 0 7 Limb ataxia (Only + if out of proportion): 0 8 Sensory (Aphasia/stupor=0 or 1, coma=2): 1 9 Best Language: 0 10 Dysarthria (mute, coma=2, intubated=UN): 0 11 Extinction and Inattention (only scored if +): 0 Total Score: 4 MDM MDM MDM Narrative Medical decision making narrative: Patient seen and evaluated on arrival. This is a very similar presentation to what she presented with last time. At that point she had had intermittent facial droop, slurred speech, weakness in the right upper and lower extremities which had waxed and waned over the course of 10 days while traveling to [facility]. Patient had a complete work-up in the hospital which included a CT brain, MRI, MRA, echocardiogram, carotid studies and these were all normal. Patient discharged to assisted. Patient initially presented with back pain today which she has had since her previous admission. This is not a new issue. No signs or symptoms of cauda equina syndrome. Patient's heart rate is low in the 40s but she states this is normal. She states that her blood pressure is also normally low and today it is 81/53. She states that this does not strike her is abnormal. On examination she does have some mild blurring of the vision in the right eye as well as some mild drift in the right upper and lower extremities but these did not hit the bed. She also has some mild decreased sensation in the right upper and lower extremity. Her NIH stroke scale score was 4. I do not believe this is an acute stroke as she presented with the previous set of symptoms and had a complete work-up which was negative. I do suspect a complex migraine. For this reason she was given Compazine and Benadryl. I did obtain x-rays of her lumbar spine previously and these were negative for acute findings. I do not believe she needs a new x-ray today as she has not had any new trauma. She does state that she feels generally weak so I will obtain blood work as well. Her POC glucose was 108. EKG on my interpretation shows sinus bradycardia with a ventricular rate of 37 bpm without sign of ischemic change or dysrhythmia. Chest x-ray on my interpretation does not show any acute cardiopulmonary process other than mild trace effusion on the right. Radiologist does agree. CT brain negative for acute intercranial findings. CBC does not show any leukocytosis. Hemoglobin hematocrit are stable. Platelets are normal. Creatinine slightly elevated at 1.20 patient was given IV fluids. Electrolytes within normal limits. High-sensitivity troponin is 6. After being treated with Compazine and Benadryl the patient states that she feels much better. She is resting comfortably in bed. Patient just had a neurology work-up in the hospital and this was all negative. I feel this is most likely complex migraine symptoms. Patient is discharged home in stable condition. She is urged to continue to make follow-up with her primary care physician. Impression: 1. Complex migraine 2. Elevated creatinine Lab Data Attestation: I reviewed the patient's lab results. Labs: Laboratory Results - last 24 hr 06/04/22 06/04/22 06/04/22 17:57 18:10 18:10 WBC Cancelled Corrected WBC Cancelled RBC Cancelled Hgb Cancelled Hct Cancelled MCV Cancelled MCH Cancelled MCHC Cancelled RDW Std Deviation Cancelled RDW Coeff of Arti Cancelled Plt Count Cancelled MPV Cancelled Immature Gran % (Auto) Cancelled Neut % (Auto) Cancelled Lymph % (Auto) Cancelled [place] % (Auto) Cancelled Eos % (Auto) Cancelled Baso % (Auto) Cancelled Absolute Neuts (auto) Cancelled Absolute Lymphs (auto) Cancelled Total Counted Cancelled Neutrophils % (Manual) Cancelled Band Neutrophils % Cancelled Lymphocytes % (Manual) Cancelled Monocytes % (Manual) Cancelled Eosinophils % (Manual) Cancelled Basophils % (Manual) Cancelled Metamyelocytes % Cancelled Myelocytes % Cancelled Promyelocytes % Cancelled Blast Cells % Cancelled Plasma Cell % (Manual) Cancelled Other Cells % Cancelled Nucleated RBC % Cancelled Nucleated RBCs/100 WBC Cancelled Differential Comment Cancelled Diff Path Review Cancelled Hypersegmented Neuts Cancelled Atypical Lymphocytes Cancelled Reactive Lymphocytes Cancelled Smudge Cells Cancelled Toxic Granulation Cancelled Toxic Vacuolation Cancelled Dohle Bodies Cancelled Jason Rods Cancelled Platelet Estimate Cancelled Plt Morphology Comment Cancelled RBC Morphology Cancelled Polychromasia Cancelled Hypochromasia Cancelled Poikilocytosis Cancelled Basophilic Stippling Cancelled Anisocytosis Cancelled Microcytosis Cancelled Macrocytosis Cancelled Spherocytes Cancelled Sickle Cells Cancelled Target Cells Cancelled Tear Drop Cells Cancelled Ovalocytes Cancelled Stomatocytes Cancelled [place] Bodies Cancelled Spicer Cells Cancelled Bite Cells Cancelled Crenated Cell Cancelled Acanthocytes (Spur) Cancelled Rouleaux Cancelled Schistocytes Cancelled Sodium 140 Potassium 4.1 Chloride 107 Carbon Dioxide 26.0 Anion Gap 7 BUN 18 Creatinine 1.20 H Estim Creat Clear Calc 43.17 Est GFR (MDRD) Af Amer 58 L Est GFR (MDRD) Non-Af 48 L BUN/Creatinine Ratio 15.0 Glucose 106 Calcium 8.8 Total Bilirubin 0.40 AST 19 ALT 19 Alkaline Phosphatase 123 H Troponin I High Sens 6 Total Protein 6.9 Albumin 3.9 Globulin 3.0 Albumin/Globulin Ratio 1.3 POC Glucose 108 H 06/04/22 19:15 WBC 5.7 Corrected WBC RBC 3.44 L Hgb 10.2 L Hct 33.1 L MCV 96.2 MCH 29.7 MCHC 30.8 L RDW Std Deviation 69.5 H RDW Coeff of Arti 19.8 H Plt Count 352 MPV 10.7 Immature Gran % (Auto) 0.500 Neut % (Auto) 61.9 Lymph % (Auto) 26.4 [place] % (Auto) 8.7 Eos % (Auto) 2.1 Baso % (Auto) 0.4 Absolute Neuts (auto) 3.5 Absolute Lymphs (auto) 1.49 Total Counted Neutrophils % (Manual) Band Neutrophils % Lymphocytes % (Manual) Monocytes % (Manual) Eosinophils % (Manual) Basophils % (Manual) Metamyelocytes % Myelocytes % Promyelocytes % Blast Cells % Plasma Cell % (Manual) Other Cells % Nucleated RBC % 0 Nucleated RBCs/100 WBC Differential Comment SCANNED Diff Path Review Hypersegmented Neuts Atypical Lymphocytes Reactive Lymphocytes Smudge Cells Toxic Granulation Toxic Vacuolation Dohle Bodies Jason Rods Platelet Estimate Plt Morphology Comment RBC Morphology Polychromasia Hypochromasia Poikilocytosis Basophilic Stippling Anisocytosis 1+ Microcytosis Macrocytosis Spherocytes Sickle Cells Target Cells Tear Drop Cells Ovalocytes Stomatocytes [place] Bodies [place] Cells Bite Cells Crenated Cell Acanthocytes (Spur) Rouleaux Schistocytes Sodium Potassium Chloride Carbon Dioxide Anion Gap BUN Creatinine Estim Creat Clear Calc Est GFR (MDRD) Af Amer Est GFR (MDRD) Non-Af BUN/Creatinine Ratio Glucose Calcium Total Bilirubin AST ALT Alkaline Phosphatase Troponin I High Sens Total Protein Albumin Globulin Albumin/Globulin Ratio POC Glucose Radiography Diagnostic Testing: Clinical Impression(s) from Imaging Studies Brain CT 06/04/22 18:17 IMPRESSION: No acute findings. Mild chronic sinusitis. Electronically Signed: Elsa Luis MD at 19:24 EDT Reading Location ID and State: [id number] / Tel , Service support , Chest X-Ray 06/04/22 18:30 IMPRESSION: Trace right pleural effusion, otherwise no acute findings. Electronically Signed: Elsa Luis MD at 18:47 EDT Reading Location ID and State: [id number] / Tel , Service support , Discharge Plan Triage Chief Complaint: Back ED Provider: Petey Sweet Dx/Rx/DC Orders Instructions: Self-Care for Headaches, Preventing Migraine Headaches ... Prescriptions: No Action omeprazole 40 mg Capsule,Delayed Release(Dr/Ec) 80 mg PO DAILY simvastatin 40 mg Tablet 40 mg PO QHS oxycodone-acetaminophen 5-325 mg Tablet 1 tab PO Q6H PRN (Reason: Pain) methocarbamol 750 mg Tablet 750 mg PO TID trazodone 150 mg Tablet 300 mg PO QHS diclofenac sodium 75 mg Tablet,Delayed Release (Dr/Ec) 75 mg PO BID diazepam 5 mg Tablet 5 mg PO TID aripiprazole 5 mg Tablet 5 mg PO QHS albuterol sulfate [Ventolin HFA] 90 mcg/actuation Hfa Aerosol Inhaler INHALATION Q4H PRN PRN (Reason: sob) budesonide-formoterol [Symbicort] 80-4.5 mcg/actuation Hfa Aerosol Inhaler 2 puff INHALATION BID Primary Care Provider: Care Physician,No Primary Referrals: Care Physician,No Primary [Primary Care Provider] - Disposition Disposition: Home, Self Care
--- NOTE | 2022-06-04 18:30 | RAD_ITS ---
STUDY: X-RAY CHEST REASON FOR EXAM: Female, 66 years old. weakness TECHNIQUE: Single AP portable view of the chest. COMPARISON: 05/25/2022. FINDINGS: Calcified granulomata in the right lung. The lungs are otherwise clear. Trace right pleural effusion. Normal size heart. Normal mediastinum and cash. Normal visualized pulmonary arteries. Normal visualized aortic arch and descending thoracic aorta. Normal visualized thoracic spine. Normal visualized ribs, clavicles, and shoulders. There is no demonstrated abnormality of the visualized soft tissue structures of the upper abdomen. RAD/Chest 1 View (Portable) IMPRESSION: Trace right pleural effusion, otherwise no acute findings. Electronically Signed: Elsa Luis MD at 18:47 EDT Reading Location ID and State: [id number] / Tel , Service support ,
[2022-06-04 18:49] LABS: ALB/GLOB Ratio 1.3 RATIO (0.9-2.4); AST(SGOT) 19 U/L (15-37); Alanine Aminotransfer ALT/SGPT 19 U/L (13-56); Albumin, Serum 3.9 g/dL (3.2-5.0); Alkaline Phosphatase 123 U/L (45-117); Anion Gap 7 (5-15); BUN 18 mg/dL (7-18); Calcium,Total 8.8 mg/dL (8.5-10.1); Chloride 107 mmol/L (98-107); EST Glomerular Filtration Rate 48 mL/min (>60); Est Glom Filt Rate - Afr Amer 58 mL/min (>60); Estimated Creatinine Clearance 43.17 ml/min; Glucose 106 mg/dL (74-106); Potassium 4.1 mmol/L (3.5-5.1); Protein, Total 6.9 g/dL (6.4-8.2); Sodium Level 140 mmol/L (136-145); Troponin-I HS 6 pg/mL (3.0-54.0)
[2022-06-04 19:34] LABS: Absolute Lymphocyte Count 1.49 X10^3/uL (0.83-4.51); Absolute Neutrophil Count 3.5 X10^3/uL (2.0-7.7); Basophil# 0.02 X10^3/uL; Basophil% 0.4 % (0-1); Eosinophil# 0.12 X10^3/uL; Eosinophils% 2.1 % (0-5); Hematocrit 33.1 % (37-47); Hemoglobin 10.2 g/dL (12.0-15.0); Lymphocyte # 1.49 X10^3/ul (0.83-4.51); Lymphocyte % 26.4 % (19-41); Mean Corp Hgb Conc 30.8 g/dL (32-36); Mean Corpuscular Hgb 29.7 pg (27.0-32.0); Mean Corpuscular Volume 96.2 fL (81-99); Mean Platelet Vol. 10.7 fl (6.2-12.0); Monocyte# 0.49 X10^3/uL; Monocyte% 8.7 % (0-10); NRBC Flagged by Analyzer 0 % (0-5); Neutrophil % 61.9 % (47-70); POSITIVE MORPHOLOGY YES; Platelet Count 352 K/mm3 (150-450); RBC Distribution Width CV 19.8 % (11.6-14.6); RBC Distribution Width SD 69.5 fl (35.1-43.9); Red Blood Count 3.44 M/mm3 (4.2-5.4); White Blood Count 5.7 K/mm3 (4.4-11.0)
[2022-06-04] MEDS: DiphenhydrAMINE 50 MG/ML Syringe 25 MG IV (19:34)
[2022-06-04] MEDS: proCHLORPERazine 10 MG/2 ML Vial IV (19:34)
[2022-06-04 19:37] VITALS: BP 89/52; PULSE 44; RESP 12; O2SAT 96
[2022-06-04 19:47] LABS: Differential Indicated SCAN CRITERIA MET
[2022-06-04 20:09] LABS: Anisocytosis 1+; Differential Comment SCANNED
[2022-06-04 21:09] VITALS: BP 107/57; PULSE 39; RESP 12; O2SAT 98
[2022-06-04 22:59] VITALS: BP 112/73; PULSE 47; RESP 15; O2SAT 98
== END 2022-06-04 23:00 | disposition home or self-care (01) ==
PROVIDERS: Emergency Provider Student in an Organized Health Care Education/Training Program; Visit Provider Student in an Organized Health Care Education/Training Program
DX: G43.109 Migraine with aura, not intractable, without status migrainosus (principal); J44.9 Chronic obstructive pulmonary disease, unspecified; M54.50 Low back pain, unspecified; I25.10 Atherosclerotic heart disease of native coronary artery without angina pectoris; I25.2 Old myocardial infarction; R79.89 Other specified abnormal findings of blood chemistry; Z79.891 Long term (current) use of opiate analgesic; Z79.899 Other long term (current) drug therapy; Z87.820 Personal history of traumatic brain injury
CPT/HCPCS: 70450; 71045; 80053; 82962; 84484; 85025; 93005; 96361; 96374; 96375; 99283; J7040; A4216

== ENCOUNTER 2022-06-30 12:33 | Observation (INO) | payer MEDICARE, SELFPAY ==
[2022-06-30] VITALS (17 sets, daily range): BP systolic 99–141; BP diastolic 46–87; PULSE 34–74; RESP 12–24; TEMP 36.1–36.6; O2SAT 92–100; BMI 27.5; BMI 25.8
--- NOTE | 2022-06-30 12:41 | EKG12_ITS ---
Test Reason : STROKE TEAM Blood Pressure : / mmHG Vent. Rate : 055 BPM Atrial Rate : 055 BPM P-R Int : 140 ms QRS Dur : 112 ms QT Int : 492 ms P-R-T Axes : 040 -01 037 degrees QTc Int : 470 ms Sinus bradycardia Cannot rule out Anterior infarct , age undetermined Abnormal ECG Confirmed by ALPHONSO BREWER, AVTAR ([id number]), website/blog editor FLORENCIO SUTTON ([id number]) on 07/02/2022 9:20:50 AM Referred By: Confirmed By:AVTAR WERNER MD
--- NOTE | 2022-06-30 12:41 | CT_ITS ---
STUDY: CT BRAIN WITHOUT CONTRAST REASON FOR EXAM: Female, 66 years old. Neurodeficits, acute stroke. RADIATION DOSAGE (If Supplied By Facility): CTDIvol = ( 44.99 ) mGy, DLP = (745.49) mGycm TECHNIQUE: Transaxial CT imaging of the brain was performed without administration of intravenous contrast material. Individualized dose optimization techniques were used for this CT. COMPARISON: 06/04/2022. FINDINGS: Normal soft tissue structures. Normal calvarium. Normal size ventricles and extra-axial spaces for the patient''s age. Normal white matter tracts of the cerebral hemispheres. Prominent vascular space in the inferior right basal ganglia. There is no intracranial hemorrhage. There are no findings of an acute ischemic infarction. Mucosal thickening in the left maxillary sinus. CT/STROKE Brain/Head without Cont IMPRESSION: 1. No acute intracranial process. 2. No significant changes. Exams. 3. Left maxillary sinus disease. N.B. : The above Results were Read Back by Willie Mario MD to Paulo Espinosa MD, and understanding confirmed on 06/30/2022 13:17:53 (ET). Electronically Signed: Willie Mario MD at 13:23 EDT ,
--- NOTE | 2022-06-30 12:43 | CT_ITS ---
INDICATION: Acute stroke EXAMINATION: CT BRAIN WITH CONTRAST TECHNIQUE: Noncontrast axial images were obtained of the brain. Subsequently, routine carotid CT angiogram protocol was performed without and with IV contrast. In addition, images were obtained of the [place]. NASCET criteria using the distal ICAs for comparison were used for evaluation of stenoses. 3D reconstructions were reviewed. A radiation dose optimization technique was used for this scan. IV Contrast dosage and agent: COMPARISON: None. FINDINGS: CTA NECK: AORTIC ARCH AND BRANCHES: Normal anatomy, patent. RIGHT CCA: No occlusion, significant stenosis or dissection. RIGHT ICA: Atherosclerotic plaque in the right bulb region with no significant stenosis. The distal right internal carotid artery is unremarkable. LEFT CCA: Tortuous proximal left common carotid artery. No significant stenosis. LEFT ICA: Sclerotic plaque and left bulb region with mild stenosis. The distal left internal carotid arteries are unremarkable. RIGHT VERTEBRAL ARTERY: No occlusion, significant stenosis or dissection. LEFT VERTEBRAL ARTERY: Torturous origin of the left vertebral artery. No occlusion or significant stenosis. No evidence of dissection. NECK SOFT TISSUES: Unremarkable. CTA HEAD: --Anterior circulation: ICAs: No significant stenosis. ACAs: Hypoplastic development of the left A1 segment. Unremarkable right A1 segment. Unremarkable A2 segments. ACOM: Present. MCAs: No significant stenosis at the visualized segments. --Posterior circulation: PCOMs: Probable origin of the left posterior cerebral artery. operating room technologist: No significant stenosis at the visualized segments. BASILAR ARTERY: No significant stenosis. VERTEBRAL ARTERIES: No significant stenosis at the intradural/visualized segments. No evidence of intracranial aneurysm or vascular malformation within this limitation of this examination.. CT/CTA Head AND Neck W/ Contrast IMPRESSION: 1. No evidence of intracranial great vessel stenosis. 2. Atherosclerotic changes in the bulb regions with mild stenosis on the left side. 3. Patent bilateral vertebral arteries without significant stenosis or dissection. Electronically Signed: Willie Mario MD at 15:56 EDT ,
--- NOTE | 2022-06-30 12:47 | EDS_ITS ---
HPI History of Present Illness Chief Complaint: Stroke Alert Narrative Narrative: Patient presents with 2-hour history of right arm and right leg weakness. About 7 weeks ago she had similar symptoms and she was admitted. She recently moved here from [place] and is still working on a place to live apparently there is an apartment for her and she was driving to that apartment when this happened. No fevers or chills. No cough or congestion. No vision changes. No back pain or tearing sensation. The symptoms are similar to her prior stroke, in fact she has had deficits from her prior stroke including right arm weakness and right leg weakness but she thinks they are somewhat worse than they were even yesterday. [facility] Medical History CAD (coronary artery disease) COPD (chronic obstructive pulmonary disease) GERD (gastroesophageal reflux disease) Grand mal seizure Heart attack Heart failure History of back problems History of breast cancer History of cervical cancer History of COPD History of migraine History of seizures Hx of cardiac murmur Hx of chronic arthritis Hx of chronic bronchitis Hx of emotional problems Hx of hearing loss Hx of hypoglycemia Hx of seasonal allergies Major depressive disorder Paroxysmal SVT (supraventricular tachycardia) Posttraumatic stress disorder TBI (traumatic brain injury) TIA (transient ischemic attack) Vocal cord polyp Wears glasses Home Medications albuterol sulfate 90 mcg/actuation aerosol inhaler (Ventolin HFA) 90 mcg inhalation Q4H PRN PRN sob 05/25/22 [History Last Taken Unknown] budesonide-formoterol HFA 80 mcg-4.5 mcg/actuation aerosol inhaler (Symbicort) 2 puff inhalation BID breathing 05/25/22 [History Last Taken Unknown] diclofenac sodium 75 mg tablet,delayed release 75 mg PO BID pain 05/25/22 [History Last Taken 05/25/22] methocarbamol 750 mg tablet 750 mg PO TID pain 05/25/22 [History Last Taken 05/25/22] omeprazole 40 mg capsule,delayed release 80 mg PO DAILY reflux 05/25/22 [History Last Taken 05/25/22] simvastatin 40 mg tablet 40 mg PO QHS cholesterol 05/25/22 [History Last Taken 05/24/22] trazodone 150 mg tablet 300 mg PO QHS sleep #20 tabs 06/14/22 [Rx Last Taken Unknown] aspirin 81 mg tablet,delayed release (Adult Low Dose Aspirin) 81 mg PO DAILY 06/26/22 [History Last Taken Unknown] aripiprazole 5 mg tablet 5 mg PO QHS mental health #30 tabs 06/27/22 [Rx Last Taken Unknown] Allergy/AdvReac Type Severity Reaction Status Date / Time divalproex sodium Allergy Angioedema Verified 06/27/22 11:02 [From Depakote] Influenza Virus Vaccines Allergy Angioedema Verified 06/27/22 11:02 [flu shot] phenytoin [From Dilantin] Allergy Hives Verified 06/27/22 11:02 propofol Allergy Angioedema Verified 06/27/22 11:02 Iodinated Contrast Media AdvReac Intermediate Angioedema Verified 06/27/22 11:02 Latex, Natural Rubber AdvReac Swelling Verified 06/27/22 11:02 meloxicam AdvReac Other Verified 06/27/22 11:02 oxybutynin [From Ditropan] AdvReac Swelling Verified 06/27/22 11:02 pravastatin AdvReac Swelling Verified 06/27/22 11:02 tetracycline AdvReac Itching Verified 06/27/22 11:02 tramadol AdvReac Other Verified 06/27/22 11:02 Family History Other Adopted Surgical History History of total right hip replacement Hx of cholecystectomy S/P ALLAN (total abdominal hysterectomy) Social History household members: other details: Living with her keya. 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 Smoking Status: Never smoker Electronic Cigarette Use: not used alcohol intake: never substance use type: does not use caffeine: Yes Type: coffee Number of servings: 1 do you feel safe at home: Yes ROS ROS ED ROS Narrative Past medical history: Reviewed at the bedside and in the EMR Medications: Reviewed Social history: Noncontributory Review of systems: All systems negative except as indicated General: No fever Eyes: No visual changes ENT: No upper airway congestion, normal voice Neck: No neck pain Cardiovascular: No chest pain Respiratory: No shortness of breath or cough Gastrointestinal: No abdominal pain, nausea vomiting or diarrhea Genitourinary: No dysuria Musculoskeletal: Denies myalgias no difficulty with ambulation Skin: No rash Neurological: As in HPI Psych: No recent behavioral changes Hematologic: No easy bleeding or easy bruising EXAM Physical Exam Narrative Exam Narrative: Physical exam General: Well nourished, Well developed, No Acute Distress Head: Normocephalic, Atraumatic Eyes: Conjunctiva not pale ENT: Moist mucous membranes Neck: Supple, Nontender, No lymphadenopathy Cardiovascular: Regular rate, Regular rhythm Respiratory: No distress, CTA bilaterally Abdomen: Soft, Nontender, Nondistended Back: Nontender, Normal Inspection. Negative for: CVA tenderness Extremities: Nontender, No edema Skin: Normal color, No rash Neurological: See NIH stroke scale Psychological: Normal affect Const Vital Signs: 06/30/22 12:35 06/30/22 12:40 06/30/22 13:10 Temperature 97.3 F L 97.3 F L Temperature Source Temporal Temporal Pulse Rate 74 74 58 L Respiratory Rate 24 H 24 H 15 Blood Pressure 128/72 H 128/72 H 128/72 H Blood Pressure Mean 90 90 90 Pulse Ox 100 100 97 Oxygen Delivery Method Room Air Room Air Room Air 06/30/22 13:11 06/30/22 13:30 06/30/22 14:00 Temperature Temperature Source Pulse Rate 53 L 50 L Respiratory Rate 16 16 Blood Pressure 126/62 H 126/62 H Blood Pressure Mean 83 83 Pulse Ox 96 96 Oxygen Delivery Method Room Air Room Air Room Air 06/30/22 14:30 06/30/22 14:33 Temperature Temperature Source Pulse Rate 50 L 42 L Respiratory Rate 16 16 Blood Pressure 128/82 H 99/54 L Blood Pressure Mean 97 69 Pulse Ox 96 96 Oxygen Delivery Method Room Air NIHSS NIHSS Initial: 1a Level of Consciousness: 0 1b LOC Questions (Score 2 if aphasic/stupor): 0 1c LOC Commands (Only score 1st attempt): 0 2 Best Gaze (If aphasic, use reflexive mvmts.): 0 3 Visual: 0 4 Facial Palsy: 0 5 Motor Arm Right (UN = amputation/fusion): 1 5 Motor Arm Left: 0 6 Motor Leg Right: 1 6 Motor Leg Left: 0 7 Limb ataxia (Only + if out of proportion): 0 8 Sensory (Aphasia/stupor=0 or 1, coma=2): 1 9 Best Language: 0 10 Dysarthria (mute, coma=2, intubated=UN): 0 11 Extinction and Inattention (only scored if +): 0 Total Score: 3 MDM MDM MDM Narrative Medical decision making narrative: Patient's work-up is unremarkable however she has worsening weakness I talked to stroke neurology who wanted the patient admitted for an MRI. Patient symptoms are very similar to her prior stroke she has chronic deficits from her prior stroke her deficit just slightly worse, neurologist and myself both agree that the patient does not meet criteria for tPA at this time due to symptoms being very very mild. Lab Data Labs: Laboratory Results - last 24 hr 06/30/22 06/30/22 06/30/22 12:42 13:35 13:35 WBC 6.2 RBC 3.51 L Hgb 11.1 L Hct 34.6 L MCV 98.6 MCH 31.6 MCHC 32.1 RDW Std Deviation 62.5 H RDW Coeff of Arti 17.1 H Plt Count 214 MPV 10.7 Immature Gran % (Auto) 0.300 Neut % (Auto) 77.1 H Lymph % (Auto) 16.0 L [place] % (Auto) 5.3 Eos % (Auto) 1.0 Baso % (Auto) 0.3 Absolute Neuts (auto) 4.8 Absolute Lymphs (auto) 0.99 Nucleated RBC % 0 PT INR APTT Sodium 135 L Potassium 4.7 Chloride 109 H Carbon Dioxide 21.0 Anion Gap 5 BUN 20 H Creatinine 0.74 Estim Creat Clear Calc 51.11 Est GFR (MDRD) Af Amer 100 Est GFR (MDRD) Non-Af 83 BUN/Creatinine Ratio 26.9 H Glucose 86 Calcium 8.9 Troponin I High Sens 5 POC Glucose 94 06/30/22 14:10 WBC RBC Hgb Hct MCV MCH MCHC RDW Std Deviation RDW Coeff of Arti Plt Count MPV Immature Gran % (Auto) Neut % (Auto) Lymph % (Auto) [place] % (Auto) Eos % (Auto) Baso % (Auto) Absolute Neuts (auto) Absolute Lymphs (auto) Nucleated RBC % PT 13.5 INR 1.1 APTT 25.9 Sodium Potassium Chloride Carbon Dioxide Anion Gap BUN Creatinine Estim Creat Clear Calc Est GFR (MDRD) Af Amer Est GFR (MDRD) Non-Af BUN/Creatinine Ratio Glucose Calcium Troponin I High Sens POC Glucose Radiography Diagnostic Testing: Clinical Impression(s) from Imaging Studies Brain CT 06/30/22 12:41 IMPRESSION: 1. No acute intracranial process. 2. No significant changes. Exams. 3. Left maxillary sinus disease. N.B. : The above Results were Read Back by Willie Mario MD to Paulo Espinosa MD, and understanding confirmed on 06/30/2022 13:17:53 (ET). Electronically Signed: Willie Mario MD at 13:23 EDT , ADDENDUM: 06/30/22 1330 IMPRESSION: 1. No acute intracranial process. 2. No significant changes. Exams. 3. Left maxillary sinus disease. N.B. : The above Results were Read Back by Willie Mario MD to Paulo Espinosa MD, and understanding confirmed on 06/30/2022 13:17:53 (ET). Electronically Signed: Willie Mario MD at 13:23 EDT , Discharge Plan Triage Chief Complaint: Stroke Alert ED Provider: Paulo Espinosa Dx/Rx/DC Orders Clinical Impression: Stroke-like symptoms, Arm weakness, Leg weakness Prescriptions: No Action trazodone 150 mg tablet 300 mg PO QHS Qty: 20 0RF aspirin [Adult Low Dose Aspirin] 81 mg tablet,delayed release (DR/EC) 81 mg PO DAILY aripiprazole 5 mg tablet 5 mg PO QHS Qty: 30 2RF omeprazole 40 mg Capsule,Delayed Release(Dr/Ec) 80 mg PO DAILY simvastatin 40 mg Tablet 40 mg PO QHS methocarbamol 750 mg Tablet 750 mg PO TID diclofenac sodium 75 mg Tablet,Delayed Release (Dr/Ec) 75 mg PO BID albuterol sulfate [Ventolin HFA] 90 mcg/actuation Hfa Aerosol Inhaler 90 mcg INHALATION Q4H PRN PRN (Reason: sob) budesonide-formoterol [Symbicort] 80-4.5 mcg/actuation Hfa Aerosol Inhaler 2 puff INHALATION BID Primary Care Provider: Care Physician,No Primary Referrals: Care Physician,No Primary [Primary Care Provider] - Disposition Disposition: Acute Care Hospital [facility]
[2022-06-30 13:01] LABS: Bedside Glucose 94 mg/dL (74-106)
[2022-06-30 13:48] LABS: Absolute Lymphocyte Count 0.99 X10^3/uL (0.83-4.51); Absolute Neutrophil Count 4.8 X10^3/uL (2.0-7.7); Basophil# 0.02 X10^3/uL; Basophil% 0.3 % (0-1); Eosinophil# 0.06 X10^3/uL; Hematocrit 34.6 % (37-47); Hemoglobin 11.1 g/dL (12.0-15.0); Lymphocyte # 0.99 X10^3/ul (0.83-4.51); Mean Corp Hgb Conc 32.1 g/dL (32-36); Mean Corpuscular Hgb 31.6 pg (27.0-32.0); Mean Corpuscular Volume 98.6 fL (81-99); Mean Platelet Vol. 10.7 fl (6.2-12.0); Monocyte# 0.33 X10^3/uL; Monocyte% 5.3 % (0-10); NRBC Flagged by Analyzer 0 % (0-5); Neutrophil # 4.78 X10^3/uL (2.7-7.7); Neutrophil % 77.1 % (47-70); Platelet Count 214 K/mm3 (150-450); RBC Distribution Width CV 17.1 % (11.6-14.6); RBC Distribution Width SD 62.5 fl (35.1-43.9); Red Blood Count 3.51 M/mm3 (4.2-5.4); White Blood Count 6.2 K/mm3 (4.4-11.0)
[2022-06-30] MEDS: MethylPREDNISolone 125 MG/2 ML Vial IV (13:51)
[2022-06-30] MEDS: DiphenhydrAMINE 50 MG/ML Syringe 25 MG IV (13:51)
[2022-06-30] MEDS: Famotidine 200 MG/20 ML MDV 20 MG in 0.9% Normal Saline (Pres. free 8 ML 300 MG IV (13:52)
[2022-06-30 14:12] LABS: Anion Gap 5 (5-15); BUN 20 mg/dL (7-18); BUN/Creat Ratio 26.9 RATIO (10-20); Calcium,Total 8.9 mg/dL (8.5-10.1); Chloride 109 mmol/L (98-107); Creatinine, Serum 0.74 mg/dL (0.55-1.02); EST Glomerular Filtration Rate 83 mL/min (>60); Est Glom Filt Rate - Afr Amer 100 mL/min (>60); Estimated Creatinine Clearance 51.11 ml/min; Glucose 86 mg/dL (74-106); Potassium 4.7 mmol/L (3.5-5.1); Sodium Level 135 mmol/L (136-145); Troponin-I HS 5 pg/mL (3.0-54.0)
[2022-06-30 14:35] LABS: Partial Thromboplast Time 25.9 Seconds (24.1-36.2)
[2022-06-30 14:49] LABS: International Normalized Ratio 1.1; Prothrombin Time (Protime)PT. 13.5 SECONDS (11.7-14.9)
--- NOTE | 2022-06-30 15:02 | RAD_ITS ---
INDICATION: Neuro deficit, acute, stroke suspected EXAMINATION/TECHNIQUE: X-RAY - XR Chest 1 View COMPARISON: 06/04/2022. FINDINGS: LINES/DEVICES: None. LUNGS: No consolidation, edema or effusion. No pneumothorax. MEDIASTINUM AND CARDIOVASCULAR STRUCTURES: Cardiac silhouette not enlarged. Central airways and mediastinal contour are unremarkable. Mild tortuosity of the thoracic aorta. BONES AND SOFT TISSUES: Degenerative changes in the thoracic spine and right shoulder. RAD/Chest 1 View IMPRESSION: No radiographic evidence of acute cardiopulmonary disease. Electronically Signed: Willie Mario MD at 15:57 EDT ,
--- NOTE | 2022-06-30 16:29 | HP.PCM.HOS_ITS ---
HPI - General General Date of Admission: 06/30/22 HPI Narrative HALI BENJAMIN, is a 67 F who presents to the hospital complaining of increased right-sided weakness. 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 Symptoms started approximately 4 hours prior to my evaluation, her case was discussed between the ED and the neurologist and they both felt that she did not meet criteria for tPA. She does have an NIH of 3 secondary to right upper and lower extremity weakness as well as some sensory loss. See to the brain is negative as a CTA of the head and neck. [facility] Medical History CAD (coronary artery disease) COPD (chronic obstructive pulmonary disease) GERD (gastroesophageal reflux disease) Grand mal seizure Heart attack Heart failure History of back problems History of breast cancer History of cervical cancer History of COPD History of migraine History of seizures Hx of cardiac murmur Hx of chronic arthritis Hx of chronic bronchitis Hx of emotional problems Hx of hearing loss Hx of hypoglycemia Hx of seasonal allergies Major depressive disorder Paroxysmal SVT (supraventricular tachycardia) Posttraumatic stress disorder TBI (traumatic brain injury) TIA (transient ischemic attack) Vocal cord polyp Wears glasses Home Medications albuterol sulfate 90 mcg/actuation aerosol inhaler (Ventolin HFA) 90 mcg inhalation Q4H PRN PRN sob 05/25/22 [History Last Taken Unknown] budesonide-formoterol HFA 80 mcg-4.5 mcg/actuation aerosol inhaler (Symbicort) 2 puff inhalation BID breathing 05/25/22 [History Last Taken Unknown] diclofenac sodium 75 mg tablet,delayed release 75 mg PO BID pain 05/25/22 [History Last Taken 05/25/22] methocarbamol 750 mg tablet 750 mg PO TID pain 05/25/22 [History Last Taken 05/25/22] omeprazole 40 mg capsule,delayed release 80 mg PO DAILY reflux 05/25/22 [History Last Taken 05/25/22] simvastatin 40 mg tablet 40 mg PO QHS cholesterol 05/25/22 [History Last Taken 05/24/22] trazodone 150 mg tablet 300 mg PO QHS sleep #20 tabs 06/14/22 [Rx Last Taken Unk nown] aspirin 81 mg tablet,delayed release (Adult Low Dose Aspirin) 81 mg PO DAILY 06/26/22 [History Last Taken Unknown] aripiprazole 5 mg tablet 5 mg PO QHS mental health #30 tabs 06/27/22 [Rx Last T aken Unknown] Allergy/AdvReac Type Severity Reaction Status Date / Time divalproex sodium Allergy Angioedema Verified 06/27/22 11:02 [From Depakote] Influenza Virus Vaccines Allergy Angioedema Verified 06/27/22 11:02 [flu shot] phenytoin [From Dilantin] Allergy Hives Verified 06/27/22 11:02 propofol Allergy Angioedema Verified 06/27/22 11:02 Iodinated Contrast Media AdvReac Intermediate Angioedema Verified 06/27/22 11:02 Latex, Natural Rubber AdvReac Swelling Verified 06/27/22 11:02 meloxicam AdvReac Other Verified 06/27/22 11:02 oxybutynin [From Ditropan] AdvReac Swelling Verified 06/27/22 11:02 pravastatin AdvReac Swelling Verified 06/27/22 11:02 tetracycline AdvReac Itching Verified 06/27/22 11:02 tramadol AdvReac Other Verified 06/27/22 11:02 Family History Other Adopted Surgical History History of total right hip replacement Hx of cholecystectomy S/P ALLAN (total abdominal hysterectomy) Social History household members: other details: Living with her keya. 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 Smoking Status: Never smoker Electronic Cigarette Use: not used alcohol intake: never substance use type: does not use caffeine: Yes Type: coffee Number of servings: 1 do you feel safe at home: Yes ROS Constitutional Constitutional: Denies chills, fatigue, fever(s) or malaise Eyes Eyes: Denies blurry vision ENT HEENT: Denies headache(s) or nasal discharge Cardiovascular Cardiovascular: Denies chest pain, dyspnea on exertion or syncope Respiratory/Chest Respiratory/Chest: Denies cough, shortness of breath at rest or shortness of breath with exertion Gastrointestinal Gastrointestinal: Denies constipation, diarrhea, nausea or vomiting Genitourinary Genitourinary: Denies dysuria Neurologic Neurologic: Reports focal weakness and paresthesias; Denies numbness or tremor(s) Psychiatric Psychiatric: Denies anxiety or depression Vital Signs Vital Signs Vital Signs: 06/30/22 12:35 06/30/22 12:40 06/30/22 13:10 Temperature 97.3 F L 97.3 F L Temperature Source Temporal Temporal Pulse Rate 74 74 58 L Respiratory Rate 24 H 24 H 15 Blood Pressure 128/72 H 128/72 H 128/72 H Blood Pressure Mean 90 90 90 Pulse Ox 100 100 97 Oxygen Delivery Method Room Air Room Air Room Air 06/30/22 13:11 06/30/22 13:30 06/30/22 14:00 Temperature Temperature Source Pulse Rate 53 L 50 L Respiratory Rate 16 16 Blood Pressure 126/62 H 126/62 H Blood Pressure Mean 83 83 Pulse Ox 96 96 Oxygen Delivery Method Room Air Room Air Room Air 06/30/22 14:30 06/30/22 14:33 06/30/22 16:04 Temperature Temperature Source Pulse Rate 50 L 42 L 48 L Respiratory Rate 16 16 12 Blood Pressure 128/82 H 99/54 L 141/72 H Blood Pressure Mean 97 69 95 Pulse Ox 96 96 99 Oxygen Delivery Method Room Air Room Air 06/30/22 15:00 06/30/22 15:30 Temperature Temperature Source Pulse Rate 42 L 46 L Respiratory Rate 15 16 Blood Pressure 133/52 H 133/64 H Blood Pressure Mean 79 87 Pulse Ox 97 97 Oxygen Delivery Method Room Air Room Air Weight Weight: 170 lb 6.677 oz Body Mass Index (BMI) 27.5 Physical Exam Narrative General: Alert, Oriented x3, Cooperative, No apparent distress HEENT: Atraumatic, PERRLA, EOMI, Normocephalic Oral: Moist Mucosa Neck: Supple, No JVD Lungs: Clear to auscultation, Normal air movement, No rhonchi, No wheeze, No rales Cardiovascular: Regular rate, Regular Rhythm, Normal S1, Normal S2, No murmurs Abdomen: Soft, Non Tender, Non-Distended, No Hepato-splenomegaly Extremities: No edema, Capillary Refill Less than 3 Seconds Skin: No rashes, No breakdown Musculoskeletal: No Tenderness to Palpation of Joints or Extremities Neurological: Cranial nerves II-XII grossly intact, right upper and right lower extremity weakness, diminished sensation on the right side. NIH of 3 Psych/Mental Status: Normal Affect, Appropriate Results Lab / Micro Data Result Diagrams: 06/30/22 13:35 06/30/22 13:35 Labs: Laboratory Results - last 24 hr 06/30/22 12:42: POC Glucose 94 06/30/22 13:35: WBC 6.2, RBC 3.51 L, Hgb 11.1 L, Hct 34.6 L, MCV 98.6, MCH 31.6, MCHC 32.1, RDW Std Deviation 62.5 H, RDW Coeff of Arti 17.1 H, Plt Count 214, MPV 10.7, Immature Gran % (Auto) 0.300, Neut % (Auto) 77.1 H, Lymph % (Auto) 16.0 L, Walsh % (Auto) 5.3, Eos % (Auto) 1.0, Baso % (Auto) 0.3, Absolute Neuts (auto) 4.8, Absolute Lymphs (auto) 0.99, Nucleated RBC % 0 06/30/22 13:35: Sodium 135 L, Potassium 4.7, Chloride 109 H, Carbon Dioxide 21.0, Anion Gap 5, BUN 20 H, Creatinine 0.74, Estim Creat Clear Calc 51.11, Est GFR (MDRD) Af Amer 100, Est GFR (MDRD) Non-Af 83, BUN/Creatinine Ratio 26.9 H, Glucose 86, Calcium 8.9, Troponin I High Sens 5 06/30/22 14:10: PT 13.5, INR 1.1, APTT 25.[address] 06/30/22 12:41 IMPRESSION: 1. No acute intracranial process. 2. No significant changes. Exams. 3. Left maxillary sinus disease. N.B. : The above Results were Read Back by Willie Mario MD to Paulo Espinosa MD, and understanding confirmed on 06/30/2022 13:17:53 (ET). Electronically Signed: Willie Mairo MD at 13:23 EDT , ADDENDUM: 06/30/22 1330 IMPRESSION: 1. No acute intracranial process. 2. No significant changes. Exams. 3. Left maxillary sinus disease. N.B. : The above Results were Read Back by Willie Mario MD to Paulo Espinosa MD, and understanding confirmed on 06/30/2022 13:17:53 (ET). Electronically Signed: Willie Mario MD at 13:23 EDT , Head/Neck CTA 06/30/22 12:43 IMPRESSION: 1. No evidence of intracranial great vessel stenosis. 2. Atherosclerotic changes in the bulb regions with mild stenosis on the left side. 3. Patent bilateral vertebral arteries without significant stenosis or dissection. Electronically Signed: Willie Mario MD at 15:56 EDT , Chest X-Ray 06/30/22 15:02 IMPRESSION: No radiographic evidence of acute cardiopulmonary disease. Electronically Signed: Willie Mario MD at 15:57 EDT , Assessment & Plan Assessment/Plan (1) Stroke-like symptoms: PLAN: Plan 1. Rule out CVA/recent admission for stroke/history of nonobstructive CAD ? We will repeat an MRI but she had an echo done at the end of May so will not repeat echo ? She also had a carotid duplex at the end of May which was negative for any significant stenosis ? We will continue with her brain but will increase her statin to Lipitor 80 mg nightly ? PT/OT 2. Chronic COPD ? Not in exacerbation ? Can resume any of her home inhalers 3. Anxiety/depression ? Stable ? Can continue with her Abilify and trazodone DVT: Ambulation Charges/Coding Visit Charges OBSV E&M: 56658 Initial observation care L2
[2022-06-30] MEDS: ARIPiprazole 5 MG Tablet PO (20:21)
[2022-06-30] MEDS: Diclofenac 75 MG Tablet PO (20:21)
[2022-06-30] MEDS: Methocarbamol 750 MG Tablet PO (20:21)
[2022-06-30] MEDS: traZODone 100 MG Tablet 300 MG PO (20:21)
[2022-06-30] MEDS: Atorvastatin Calcium 80 MG Tablet PO (20:21)
[2022-06-30] MEDS: diazePAM 5 MG Tablet PO (20:21)
[2022-06-30] MEDS: oxyCODONE 5 MG Tablet PO (20:22)
[2022-07-01] VITALS (14 sets, daily range): BP systolic 92–111; BP diastolic 42–61; PULSE 46–90; RESP 18–20; TEMP 36.2–36.6; O2SAT 92–98; BMI 27.5
[2022-07-01 06:04] LABS: Absolute Lymphocyte Count 0.75 X10^3/uL (0.83-4.51); Absolute Neutrophil Count 4.4 X10^3/uL (2.0-7.7); Hematocrit 30.8 % (37-47); Hemoglobin 9.9 g/dL (12.0-15.0); Lymphocyte # 0.75 X10^3/ul (0.83-4.51); Lymphocyte % 14.3 % (19-41); Mean Corp Hgb Conc 32.1 g/dL (32-36); Mean Corpuscular Hgb 31.4 pg (27.0-32.0); Mean Corpuscular Volume 97.8 fL (81-99); Mean Platelet Vol. 11.2 fl (6.2-12.0); Monocyte# 0.12 X10^3/uL; Monocyte% 2.3 % (0-10); NRBC Flagged by Analyzer 0 % (0-5); Neutrophil # 4.35 X10^3/uL (2.7-7.7); Platelet Count 220 K/mm3 (150-450); RBC Distribution Width CV 16.6 % (11.6-14.6); RBC Distribution Width SD 59.9 fl (35.1-43.9); Red Blood Count 3.15 M/mm3 (4.2-5.4); White Blood Count 5.2 K/mm3 (4.4-11.0)
[2022-07-01 06:23] LABS: Anion Gap 6 (5-15); BUN 21 mg/dL (7-18); BUN/Creat Ratio 29.5 RATIO (10-20); Chloride 107 mmol/L (98-107); Cholesterol 172 mg/dL (200); Creatinine, Serum 0.71 mg/dL (0.55-1.02); EST Glomerular Filtration Rate 87 mL/min (>60); Est Glom Filt Rate - Afr Amer 105 mL/min (>60); Estimated Creatinine Clearance 53.09 ml/min; Glucose 127 mg/dL (74-106); High Density Lipoprotein 56 mg/dL; Potassium 4.2 mmol/L (3.5-5.1); Sodium Level 137 mmol/L (136-145); Triglycerides 53 mg/dL; Very Low Density Lipoprotein 11 mg/dL (5-40)
[2022-07-01] MEDS: diazePAM 5 MG Tablet PO ×3 (06:37→21:09)
[2022-07-01] MEDS: Methocarbamol 750 MG Tablet PO ×3 (06:37→21:10)
[2022-07-01] MEDS: oxyCODONE 5 MG Tablet PO ×3 (06:37→21:09)
[2022-07-01] MEDS: Albuterol 2.5 MG/3 ML VIAL.NEB. INHALATION ×2 (07:27→13:32)
[2022-07-01] MEDS: Budesonide Respules 0.5 MG/2 ML AMPUL.NEB. INHALATION (07:27)
--- NOTE | 2022-07-01 08:00 | MRI_ITS ---
HISTORY: CVA. Right-sided weakness, speech and vision change, previous stroke 03/23. TECHNIQUE: Multiplanar and multisequence MR images of the brain were obtained without contrast. 274 images. COMPARISON: CT prior day. MR 05/26/2022 FINDINGS: BRAIN PARENCHYMA: Minimal chronic periventricular white matter changes, similar to prior. No abnormal focus of restricted diffusion. No acute intracranial hemorrhage identified. CSF SPACES: Cerebral ventricles, cortical sulci, and other extra-axial CSF spaces within normal limits in size. No significant midline shift or other mass effect.No extra-axial fluid collection. VASCULAR SYSTEM: Major intracranial flow voids are maintained. PARANASAL SINUSES AND MASTOID AIR CELLS: Chronic left maxillary sinusitis. ORBITS: Symmetric contents. Hypertelorism. MRI/Brain without Contrast IMPRESSION: No evidence for acute infarct. Minimal chronic small vessel ischemic gliosis. Chronic left maxillary sinusitis. Electronically Signed: Vicki Willis MD at 12:37 EDT ,
[2022-07-01] MEDS: Aspirin E.C. 81 MG Tablet PO (09:12)
[2022-07-01] MEDS: Diclofenac 75 MG Tablet PO ×2 (09:12→21:10)
[2022-07-01] MEDS: Pantoprazole Sodium 40 MG Tablet 80 MG PO (09:12)
--- NOTE | 2022-07-01 13:45 | PCM.PN.HOSP ---
Subjective Subjective Follow-up on right-sided weakness/slurred speech: Patient was seen and examined. She complains of blurred vision even with her glasses. She also complains of slurred speech. Patient stated that she is homeless. They were evicted from their hotel to be staying because he ran out of money. Objective Data Objective Data Vital Signs: Vital Signs Temp Pulse Resp BP Pulse Ox O2 Del Method 98 F 66 20 H 95/54 L 98 Room Air 07/01/22 10:47 07/01/22 13:32 07/01/22 13:32 07/01/22 10:47 07/01/22 10:47 07/01/22 10:47 Oxygen Delivery Method Room Air Weight: 74.843 kg Body Mass Index (BMI) 27.5 Intake & Output: Intake and Output for Last 24 Hours 06/29/22 06/30/22 07/01/22 23:59 23:59 23:59 Intake Total 400 / 400 Balance 400 / 400 Lab / Micro Data Result Diagrams: 07/01/22 05:14 07/01/22 05:14 Labs: Laboratory Results - last 24 hr 06/30/22 13:35: WBC 6.2, RBC 3.51 L, Hgb 11.1 L, Hct 34.6 L, MCV 98.6, MCH 31.6, MCHC 32.1, RDW Std Deviation 62.5 H, RDW Coeff of Arti 17.1 H, Plt Count 214, MPV 10.7, Immature Gran % (Auto) 0.300, Neut % (Auto) 77.1 H, Lymph % (Auto) 16.0 L, Morton % (Auto) 5.3, Eos % (Auto) 1.0, Baso % (Auto) 0.3, Absolute Neuts (auto) 4.8, Absolute Lymphs (auto) 0.99, Nucleated RBC % 0 06/30/22 13:35: Sodium 135 L, Potassium 4.7, Chloride 109 H, Carbon Dioxide 21.0, Anion Gap 5, BUN 20 H, Creatinine 0.74, Estim Creat Clear Calc 51.11, Est GFR (MDRD) Af Amer 100, Est GFR (MDRD) Non-Af 83, BUN/Creatinine Ratio 26.9 H, Glucose 86, Calcium 8.9, Troponin I High Sens 5 06/30/22 14:10: PT 13.5, INR 1.1, APTT 25.9 07/01/22 05:14: WBC 5.2, RBC 3.15 L, Hgb 9.9 L, Hct 30.8 L, MCV 97.8, MCH 31.4, MCHC 32.1, RDW Std Deviation 59.9 H, RDW Coeff of Arti 16.6 H, Plt Count 220, MPV 11.2, Immature Gran % (Auto) 0.400, Neut % (Auto) 83.0 H, Lymph % (Auto) 14.3 L, Morton % (Auto) 2.3, Eos % (Auto) 0.0, Baso % (Auto) 0.0, Absolute Neuts (auto) 4.4, Absolute Lymphs (auto) 0.75 L, Nucleated RBC % 0 07/01/22 05:14: Sodium 137, Potassium 4.2, Chloride 107, Carbon Dioxide 24.0, Anion Gap 6, BUN 21 H, Creatinine 0.71, Estim Creat Clear Calc 53.09, Est GFR (MDRD) Af Amer 105, Est GFR (MDRD) Non-Af 87, BUN/Creatinine Ratio 29.5 H, Glucose 127 H, Calcium 9.0, Triglycerides 53, Cholesterol 172, LDL Cholesterol 105, VLDL Cholesterol 11, HDL Cholesterol 56 Radiography Diagnostic Testing: Radiology Impression Head/Neck CTA 06/30/22 12:43 IMPRESSION: 1. No evidence of intracranial great vessel stenosis. 2. Atherosclerotic changes in the bulb regions with mild stenosis on the left side. 3. Patent bilateral vertebral arteries without significant stenosis or dissection. Electronically Signed: Willie Mario MD at 15:56 EDT , Chest X-Ray 06/30/22 15:02 IMPRESSION: No radiographic evidence of acute cardiopulmonary disease. Electronically Signed: Willie Mario MD at 15:57 EDT , Brain MRI 07/01/22 08:00 IMPRESSION: No evidence for acute infarct. Minimal chronic small vessel ischemic gliosis. Chronic left maxillary sinusitis. Electronically Signed: Vicki Willis MD at 12:37 EDT , Physical Exam Narrative Physical exam: General: Alert, Oriented x3, Cooperative, No apparent distress HEENT: Atraumatic Oral: Moist Mucosa Neck: Supple Lungs: Clear to auscultation Cardiovascular: HS I+II, regular, no murmurs Abdomen: Bowel Sounds Present, Soft, Non Tender Extremities: No edema Skin: No rashes, No breakdown Neurological: Power in the right upper extremity is 4/5, 5 in all extremities, slight slurness of speech Psych/Mental Status: Flat affect Assessment & Plan Assessment/Plan (1) Stroke-like symptoms: PLAN: Plan 1.Acute onset of right-sided weakness, slurred speech secondary to TIA Patient with history of stroke with residual right-sided weakness Patient with persistent symptoms CT of the brain is unremarkable. CTA of the head and neck showed mild stenosis in the carotid bulb on the left MRI of the brain showed minimal chronic small vessel ischemic gliosis; negative for acute stroke Continue on aspirin, atorvastatin 2.COPD, not in acute exacerbation, continue breathing treatment. 3.Anxiety/depression, continue on Abilify, trazodone, Valium 4. DVT PPx- Heparin SC Charges/Coding Visit Charges Inpatient E&M: 39236 Subs Hosp L2
[2022-07-01] MEDS: 0.9% Normal Saline 1,000 ML 100 ML IV (13:58)
--- NOTE | 2022-07-01 15:10 | TELEMED_ITS ---
[facility] has confirmed receipt of a request for visit. This document confirms receipt of the order initiating the consult. To find the results of the consultation, please view the patient's reports for the scanned Telemed Consult.
[2022-07-01] MEDS: ARIPiprazole 5 MG Tablet PO (21:10)
[2022-07-01] MEDS: Atorvastatin Calcium 80 MG Tablet PO (21:10)
[2022-07-01] MEDS: traZODone 100 MG Tablet 300 MG PO (21:11)
[2022-07-02] VITALS (8 sets, daily range): BP systolic 90–115; BP diastolic 49–59; PULSE 41–55; RESP 16; TEMP 36.4–37.1; O2SAT 93–97
[2022-07-02] MEDS: diazePAM 5 MG Tablet PO ×2 (05:53→14:48)
[2022-07-02] MEDS: oxyCODONE 5 MG Tablet PO ×2 (05:53→14:48)
[2022-07-02] MEDS: Methocarbamol 750 MG Tablet PO ×2 (05:53→14:49)
[2022-07-02] MEDS: Diclofenac 75 MG Tablet PO (08:47)
[2022-07-02] MEDS: Aspirin E.C. 81 MG Tablet PO (08:47)
[2022-07-02] MEDS: Pantoprazole Sodium 40 MG Tablet 80 MG PO (08:47)
--- NOTE | 2022-07-02 10:02 | CASEMGMT ---
This MAYCOL COOK to room with [place] form, explanation done-pt voices understanding, and signs [place] form. Original to chart and copy to pt. Pt voices no further questions regarding [place] form. Pt states that her sister is at apt complex signing for their apt today and they will then be able to stay there but states all furniture is in a uhaul in [place]. Pt states they need to go cotton picker the uhaul and find people to assist with unloading so that they can get furniture into apt. Pt states has therapy set up at [facility] and declines need for any further therapy at d/c. Pt was also referred to [facility] and they will be out now that pt/sister have an apt. Pt has still not gotten set up with PCP and list provided to pt at this time. Pt voices no further questions/concerns/needs. SStaten MAYCOL COOK
--- NOTE | 2022-07-02 12:27 | DCINST_ITS ---
Discharge Instructions Diet Discharge Diet: No restrictions Activity Discharge Activity: Return to Normal Activity Follow Up Care Test Results: Test results from this visit will be discussed in further detail at your follow- up appointment, if applicable. Discharge Plan Admission Admit Date/Time: 06/30/22 15:56 Primary Reason for Your Visit: Right-sided weakness Attending Provider: Nikki Murphy Primary Care Provider: Care Physician,No Primary Consulting Providers: Clint Reardon Ama Instructions Patient Instructions: Chronic Lung Disease Avoid These Additional Instructions / Restrictions: ? Continue your home medications, would advise against use of oxycodone with Valium given potential for confusion and falls. -It is very important you establish with a primary care physician for further coordination of care. Was indicated that a list of primary care physicians had been provided for you. Please call upon discharge to schedule an appointment -There was no acute cause found for the weakness on the right side of your body, if symptoms continue and you would like to establish with neurology you can follow-up with Dr. Pederson upon discharge. Call to schedule an appointment -For any concerning signs or symptoms please call 911 or proceed to the nearest emergency department Discharge Orders/Prescriptions Prescriptions: Continued trazodone 150 mg tablet 300 mg PO QHS Qty: 20 0RF aspirin [Adult Low Dose Aspirin] 81 mg tablet,delayed release (DR/EC) 81 mg PO DAILY aripiprazole 5 mg tablet 5 mg PO QHS Qty: 30 2RF omeprazole 40 mg Capsule,Delayed Release(Dr/Ec) 80 mg PO DAILY simvastatin 40 mg Tablet 40 mg PO QHS methocarbamol 750 mg Tablet 750 mg PO TID diclofenac sodium 75 mg Tablet,Delayed Release (Dr/Ec) 75 mg PO BID albuterol sulfate [Ventolin HFA] 90 mcg/actuation Hfa Aerosol Inhaler 90 mcg INHALATION Q4H PRN PRN (Reason: sob) budesonide-formoterol [Symbicort] 80-4.5 mcg/actuation Hfa Aerosol Inhaler 2 puff INHALATION BID benzonatate 100 mg Capsule 200 mg PO BID albuterol sulfate 90 mcg/actuation HFA aerosol inhaler 1 inh INHALATION Q4H PRN (Reason: breathing) diazepam 5 mg tablet 5 mg PO TID Discontinued oxycodone-acetaminophen 5-325 mg tablet 1 tab PO TID Referrals / Follow Up: Ariel Pederson MD [Non-Staff -Ordering Privileges] - See Referral Note (There was no acute cause found for the weakness on the right side of your body, if symptoms continue and you would like to establish with neurology you can follow-up with Dr. Pederson upon discharge. Call to schedule an appointment) Care Physician,No Primary [Primary Care Provider] - See Referral Note (It is very important you establish with a primary care physician for further coordination of care. Was indicated that a list of primary care physicians had been provided for you. Please call upon discharge to schedule an appointment) Disposition Disposition (needs filled in before D/C Order can be placed): Home, Self Care
--- NOTE | 2022-07-02 12:39 | PCM.DC.SUM ---
Providers Date of Admission: 06/30/22 Date of Discharge: 07/02/22 Primary Care Physician: No Primary Care Phys Reason For Visit: CVA R/O Diagnosis Discharge Diagnosis (1) Stroke-like symptoms: Status: Acute Code(s): R29.90 - Unspecified symptoms and signs involving the nervous system Medications at Discharge Home Medications albuterol sulfate 90 mcg/actuation aerosol inhaler (Ventolin HFA) 90 mcg inhalation Q4H PRN PRN sob 05/25/22 budesonide-formoterol HFA 80 mcg-4.5 mcg/actuation aerosol inhaler (Symbicort) 2 puff inhalation BID breathing 05/25/22 diclofenac sodium 75 mg tablet,delayed release 75 mg PO BID pain 05/25/22 methocarbamol 750 mg tablet 750 mg PO TID pain 05/25/22 omeprazole 40 mg capsule,delayed release 80 mg PO DAILY reflux 05/25/22 simvastatin 40 mg tablet 40 mg PO QHS cholesterol 05/25/22 trazodone 150 mg tablet 300 mg PO QHS sleep #20 tabs 06/14/22 aspirin 81 mg tablet,delayed release (Adult Low Dose Aspirin) 81 mg PO DAILY heart health 06/26/22 aripiprazole 5 mg tablet 5 mg PO QHS mental health #30 tabs 06/27/22 albuterol sulfate 90 mcg/actuation aerosol inhaler 1 inh inhalation Q4H PRN breathing 06/30/22 benzonatate 100 mg capsule 200 mg PO BID cough 06/30/22 diazepam 5 mg tablet 5 mg PO TID anxiety 06/30/22 Hospital Course Summary of Care Provided Minutes Spent on Discharge: 32 Hospital Course: Ms. Gomez is a 67-year-old female with a history of COPD, GERD, MDD who presented to [facility] 06/30/2022 with increased right-sided weakness. It was reported on admission that she had a stroke 7 weeks ago with some residual right-sided deficits though imaging does not indicate new or chronic stroke. She had reported symptoms started 4 hours prior to ED evaluation. ED and neurology did not feel she met criteria for tPA and she was admitted for stroke rule out. CTA head and neck unrevealing, MRI did not show any acute stroke or chronic evidence with stroke. Work-up otherwise negative. Neurology reconsulted and given presentation and history they suspected it may be functional. On my exam there did appear to be poor effort and superficial cooperation with exam. Has worked with physical therapy who felt that she is okay to go home. Of note she did have intermittent sinus bradycardia, does report that this is chronic for her and she has had no symptoms whatsoever, advise she establish with a primary care physician in the event she needs further work-up or management. Discussed importance of following with a primary care physician Physical Exam Const alert and no apparent distress Constitutional Narrative: Oriented HEENT normocephalic and head/scalp atraumatic Eyes Eyes Narrative: EOM grossly intact, anicteric Neck supple Resp normal respiratory effort and clear to auscultation bilaterally Cardio regular rate and regular rhythm GI non-distended Extremity Extremity Narrative: No edema appreciated, left side with good effort and 5 out of 5 strength, right side upper and lower extremity somewhat inconsistent and query level of effort with exam. Has been able to get up and walk with walker and has been evaluated by physical therapy. Moving all limbs Neuro CN's II-XII intact bilaterally and moves all extremities Neuro Narrative: No hyper or hyporeflexia appreciated on exam Psych Psych Narrative: Superficially cooperative Weight / BMI Weight Weight: 74.843 kg Body Mass Index (BMI) 27.5 ABG / Lab / Microbiology Data Result Diagrams: 07/01/22 05:14 07/01/22 05:14 D/C Instructions Discharge Diet: No restrictions Meaningful Use Info Meaningful Use Diagnoses (Choose all that apply): None applicable Discharge Plan Admission Admit Date/Time: 06/30/22 15:56 Primary Reason for Your Visit: Right-sided weakness Attending Provider: Nikki Murphy Primary Care Provider: Care Physician,No Primary Consulting Providers: Clint Reardon Ama Instructions Patient Instructions: Chronic Lung Disease Avoid These Additional Instructions / Restrictions: ? Continue your home medications, would advise against use of oxycodone with Valium given potential for confusion and falls. -It is very important you establish with a primary care physician for further coordination of care. Was indicated that a list of primary care physicians had been provided for you. Please call upon discharge to schedule an appointment -There was no acute cause found for the weakness on the right side of your body, if symptoms continue and you would like to establish with neurology you can follow-up with Dr. Pederson upon discharge. Call to schedule an appointment -For any concerning signs or symptoms please call 911 or proceed to the nearest emergency department Discharge Orders/Prescriptions Prescriptions: Continued trazodone 150 mg tablet 300 mg PO QHS Qty: 20 0RF aspirin [Adult Low Dose Aspirin] 81 mg tablet,delayed release (DR/EC) 81 mg PO DAILY aripiprazole 5 mg tablet 5 mg PO QHS Qty: 30 2RF omeprazole 40 mg Capsule,Delayed Release(Dr/Ec) 80 mg PO DAILY simvastatin 40 mg Tablet 40 mg PO QHS methocarbamol 750 mg Tablet 750 mg PO TID diclofenac sodium 75 mg Tablet,Delayed Release (Dr/Ec) 75 mg PO BID albuterol sulfate [Ventolin HFA] 90 mcg/actuation Hfa Aerosol Inhaler 90 mcg INHALATION Q4H PRN PRN (Reason: sob) budesonide-formoterol [Symbicort] 80-4.5 mcg/actuation Hfa Aerosol Inhaler 2 puff INHALATION BID benzonatate 100 mg Capsule 200 mg PO BID albuterol sulfate 90 mcg/actuation HFA aerosol inhaler 1 inh INHALATION Q4H PRN (Reason: breathing) diazepam 5 mg tablet 5 mg PO TID Discontinued oxycodone-acetaminophen 5-325 mg tablet 1 tab PO TID Referrals / Follow Up: Ariel Pederson MD [Non-Staff -Ordering Privileges] - See Referral Note (There was no acute cause found for the weakness on the right side of your body, if symptoms continue and you would like to establish with neurology you can follow-up with Dr. Pederson upon discharge. Call to schedule an appointment) Care Physician,No Primary [Primary Care Provider] - See Referral Note (It is very important you establish with a primary care physician for further coordination of care. Was indicated that a list of primary care physicians had been provided for you. Please call upon discharge to schedule an appointment) Disposition Disposition (needs filled in before D/C Order can be placed): Home, Self Care Charges/Coding Visit Charges OBSV E&M: 79801 Observation care discharge
== END 2022-07-02 12:34 | disposition home or self-care (01) ==
LOC: ED 15:17 → PCU 16:52
PROVIDERS: Admitting Provider Family Medicine; Emergency Provider Emergency Medicine; Visit Provider Internal Medicine
DX: R29.90 Unspecified symptoms and signs involving the nervous system (principal); I69.351 Hemiplegia and hemiparesis following cerebral infarction affecting right dominant side; J44.9 Chronic obstructive pulmonary disease, unspecified; I50.9 Heart failure, unspecified; I47.1 Supraventricular tachycardia; R00.1 Bradycardia, unspecified; I25.10 Atherosclerotic heart disease of native coronary artery without angina pectoris; K21.9 Gastro-esophageal reflux disease without esophagitis; R47.81 Slurred speech; Z59.89 Other problems related to housing and economic circumstances; Z79.51 Long term (current) use of inhaled steroids; R29.703 NIHSS score 3; I25.2 Old myocardial infarction; Z79.899 Other long term (current) drug therapy; Z79.82 Long term (current) use of aspirin; R47.1 Dysarthria and anarthria
CPT/HCPCS: 36415; 70450; 70496; 70498; 70551; 71045; 80048; 80061; 82962; 84484; 85025; 85610; 85730; 92610; 93005; 94640; 94762; 96361; 96374; 96375; 97162; 97166; 97530; 97535; 97802; 99218; 99285; J7030; Q9967; A4216; G0378; J3490

== ENCOUNTER → 2022-07-23 | Outpatient (CLI) | payer MEDICARE, MEDICAID, SELFPAY ==
[2022-07-23 15:03] LABS: Absolute Lymphocyte Count 1.54 X10^3/uL (0.83-4.51); Absolute Neutrophil Count 2.9 X10^3/uL (2.0-7.7); Basophil# 0.02 X10^3/uL; Basophil% 0.4 % (0-1); Eosinophil# 0.12 X10^3/uL; Eosinophils% 2.4 % (0-5); Hematocrit 38.5 % (37-47); Hemoglobin 11.5 g/dL (12.0-15.0); Lymphocyte # 1.54 X10^3/ul (0.83-4.51); Lymphocyte % 30.2 % (19-41); Mean Corp Hgb Conc 29.9 g/dL (32-36); Mean Corpuscular Hgb 30.4 pg (27.0-32.0); Mean Corpuscular Volume 101.9 fL (81-99); Mean Platelet Vol. 11.5 fl (6.2-12.0); Monocyte# 0.52 X10^3/uL; Monocyte% 10.2 % (0-10); NRBC Flagged by Analyzer 0 % (0-5); Neutrophil # 2.88 X10^3/uL (2.7-7.7); Neutrophil % 56.4 % (47-70); Platelet Count 224 K/mm3 (150-450); RBC Distribution Width CV 15.2 % (11.6-14.6); RBC Distribution Width SD 57.2 fl (35.1-43.9); Red Blood Count 3.78 M/mm3 (4.2-5.4); White Blood Count 5.1 K/mm3 (4.4-11.0)
[2022-07-23 15:27] LABS: Anion Gap 11 (5-15); BUN 12 mg/dL (7-18); BUN/Creat Ratio 14.1 RATIO (10-20); Calcium,Total 8.7 mg/dL (8.5-10.1); Chloride 106 mmol/L (98-107); Creatinine, Serum 0.85 mg/dL (0.55-1.02); EST Glomerular Filtration Rate 71 mL/min (>60); Est Glom Filt Rate - Afr Amer 86 mL/min (>60); Glucose 62 mg/dL (74-106); Potassium 4.7 mmol/L (3.5-5.1); Sodium Level 136 mmol/L (136-145)
== END | disposition home or self-care (01) ==
LOC: BIMLAB 11:47
PROVIDERS: PCP Internal Medicine; Visit Provider Internal Medicine
DX: R42 Dizziness and giddiness (principal)
CPT/HCPCS: 36415; 80048; 85025

== ENCOUNTER → 2022-07-31 | Outpatient (CLI) | payer MEDICARE, MEDICAID, SELFPAY ==
[2022-07-31 12:40] LABS: Erythrocyte Sedimentation Rate 13 mm/hr (0-30)
[2022-07-31 13:37] LABS: AST(SGOT) 26 U/L (15-37); Alanine Aminotransfer ALT/SGPT 36 U/L (13-56); Albumin, Serum 3.5 g/dL (3.2-5.0); Alkaline Phosphatase 112 U/L (45-117); Bilirubin, Direct 0.06 mg/dL (0.00-0.30); Globulin 3.1 g/dL (2.2-4.2); Protein, Total 6.6 g/dL (6.4-8.2)
[2022-08-01 15:08] LABS: Endomysial Antibody IgA Negative (Negative)
[2022-08-01 16:23] LABS: Immunoglobulin A 138 mg/dL (87-352); t-Transglutaminase IgA <2 U/mL (0-3)
== END | disposition home or self-care (01) ==
LOC: BIMLAB 10:06
PROVIDERS: PCP Internal Medicine; Referring Provider Internal Medicine; Visit Provider Internal Medicine
DX: K52.9 Noninfective gastroenteritis and colitis, unspecified (principal)
CPT/HCPCS: 36415; 80076; 82784; 83516; 85652; 86255; 97110

== ENCOUNTER → 2022-08-02 | Outpatient (CLI) | payer MEDICARE, MEDICAID, SELFPAY ==
[2022-08-03 18:33] LABS: Giardia Lamblia, Stool EIA Negative (Negative)
[2022-08-06 12:14] LABS: Calprotectin, Stool 152 ug/g (0-120)
== END | disposition home or self-care (01) ==
LOC: LABSPEC 10:14
PROVIDERS: PCP Internal Medicine; Referring Provider Internal Medicine; Visit Provider Internal Medicine
DX: K52.9 Noninfective gastroenteritis and colitis, unspecified (principal)
CPT/HCPCS: 82274; 83993; 87329

== ENCOUNTER → 2022-08-13 | Outpatient (CLI) | payer MEDICARE, MEDICAID, SELFPAY ==
[2022-08-13 16:31] LABS: Amphetamine Urine VISTA NEGATIVE (<1000 ng/mL); Barbiturate Urine VISTA NEGATIVE (< 200 ng/mL); Benzodiazepine Urine VISTA POSITIVE (< 200 ng/mL); Cocaine Urine VISTA NEGATIVE (< 300 ng/mL); Ecstacy Urine VISTA POSITIVE (< 500 ng/mL); Methadone Urine VISTA NEGATIVE (< 300 ng/mL); PCP Urine VISTA NEGATIVE (< 25 ng/mL); THC Urine VISTA NEGATIVE (< 50 ng/mL); Vista UDS pH Range 7
== END | disposition home or self-care (01) ==
LOC: LAB 14:20
PROVIDERS: PCP Internal Medicine; Visit Provider Anesthesiology Pain Medicine
DX: F11.20 Opioid dependence, uncomplicated (principal)
CPT/HCPCS: 80307

== ENCOUNTER 2022-08-14 10:21 | Emergency (ER) | payer MEDICARE, MEDICAID, SELFPAY ==
[2022-08-14 10:22] VITALS: BP 133/54; PULSE 56; RESP 18; TEMP 36.6; O2SAT 99; BMI 26.2
--- NOTE | 2022-08-14 10:50 | CT_ITS ---
STUDY: CT LUMBAR SPINE WITHOUT CONTRAST REASON FOR EXAM: Female, 67 years old. Trauma RADIATION DOSAGE (If Supplied By Facility): CTDIvol = ( 20.68 ) mGy, DLP = ( 549.27 ) mGycm TECHNIQUE: The patient was scanned in a multi detector CT scanner. High resolution transaxial imaging was performed. Images were obtained from L1 to S1 level. Sagittal and coronal images were reconstructed. Individualized dose optimization techniques were used for this CT. COMPARISON: None FINDINGS: There is an exaggerated lumbar lordosis. There is a dextroscoliosis of the lumbar spine. Normal vertebrae of the lumbar spine. L1-2: Marked degree of disc space narrowing and disc degeneration. Spondylosis. L2-3: Marked degree of disc space narrowing with disc degeneration. Spondylosis. L3-4: Marked degree of disc space narrowing and degenerative disc disease. Spondylosis. L4-5: Marked degree of disc space narrowing and disc degeneration. Spondylosis. L5-S1: Normal endplates. Normal disc height and morphology. Normal bilateral facet joints. Normal central canal and bilateral lateral recesses. Normal bilateral intervertebral neural foramina. Normal visualized paraspinous soft tissue structures. CT/Spine Lumbar without Contrast IMPRESSION: Multilevel degenerative changes, as described above. Electronically Signed: Александр Burns MD at 12:12 [facility] ,
--- NOTE | 2022-08-14 10:50 | RAD_ITS ---
STUDY: X-RAY - PELVIS AND RIGHT HIP REASON FOR EXAM: Female, 67 years old. Right hip pain following a fall. TECHNIQUE: 3 views of the pelvis and hip. COMPARISON: Comparison is made with prior examination of 05/25/2022. FINDINGS: There is a non-specific bowel gas pattern. There are multiple calcified phleboliths. There is narrowing with cortical sclerosis and osteophyte formation of the sacroiliac joint consistent with degenerative osteoarthritic changes. Normal bilateral superior and inferior pubic rami. There are degenerative changes of the pubic symphysis with articular narrowing and sclerosis. Normal bilateral ischial tuberosities. The patient is status post right total hip replacement. There has been no change. RAD/HIP, UNI W/ Pelvis 2-3 Views IMPRESSION: Status post right total hip replacement. There has been no change. Electronically Signed: Александр Burns MD at 12:14 EST ,
--- NOTE | 2022-08-14 10:50 | CT_ITS ---
STUDY: CT BRAIN WITHOUT CONTRAST REASON FOR EXAM: Female, 67 years old. Back pain and hip pain following a fall. The thickness. RADIATION DOSAGE (If Supplied By Facility): CTDIvol = ( 44.99 ) mGy, DLP = ( 762.36 ) mGycm TECHNIQUE: Transaxial CT imaging of the brain was performed without administration of intravenous contrast material. Individualized dose optimization techniques were used for this CT. COMPARISON: Comparison is made with prior study dated 06/30/2022. FINDINGS: Normal soft tissue structures. There is hyperostosis frontalis internus. Normal size ventricles and extra-axial spaces for the patient''s age. Normal white matter tracts of the cerebral hemispheres. Normal basal ganglia and thalami. Normal brainstem. Normal cerebellum. There is no intracranial hemorrhage. There are no findings of an acute ischemic infarction. There is an air-fluid level in the left maxillary sinus. This is unchanged. CT/Brain/Head without Contrast IMPRESSION: Air fluid level in the left maxillary sinus. No acute intracranial abnormality is seen. Electronically Signed: Александр Burns MD at 12:07 [facility] ,
--- NOTE | 2022-08-14 10:50 | RAD_ITS ---
STUDY: X-RAY - RIGHT KNEE REASON FOR EXAM: Female, 67 years old. Pain secondary to a fall. TECHNIQUE: 4 view(s) of the knee. COMPARISON: None. FINDINGS: Normal visualized distal femur. Normal visualized proximal tibia and fibula. Normal proximal tibiofibular articulation. Normal medial femorotibial compartment. Normal lateral femorotibial compartment. Normal patellofemoral articulation. The soft tissue structures are unremarkable. RAD/Knee 4 or More Views IMPRESSION: Normal x-ray examination of the knee. Electronically Signed: Александр Burns MD at 12:14 EST ,
--- NOTE | 2022-08-14 10:50 | CT_ITS ---
STUDY: CT CERVICAL SPINE WITHOUT CONTRAST REASON FOR EXAM: Female, 67 years old. Back pain following a fall. RADIATION DOSAGE (If Supplied By Facility): CTDIvol = ( 19.05 ) mGy, DLP = ( 379.46 ) mGycm TECHNIQUE: High resolution transaxial imaging was performed without contrast material. Sagittal and coronal images were reconstructed. Individualized dose optimization techniques were used for this CT. COMPARISON: None FINDINGS: Normal craniovertebral junction. There are degenerative changes of the anterior atlantoaxial articulation. Normal odontoid process. Normal cervical lordosis. Normal vertebral bodies and posterior osseous elements. C2-3: Facet joint osteoarthritis on the right side. No significant narrowing is seen. C3-4: Facet joint osteoarthritis and hypertrophy worse on the right side. Mild degree of right neural foraminal stenosis. C4-5: Minimal anterior listhesis of C4 on C5. Mild degree facet joint osteoarthritis. C5-6: Moderate degree of disc space narrowing. No significant stenosis seen. C6-7: Moderate degree of disc space narrowing. No significant stenosis seen. C7-T1: Normal endplates. Normal disc height and morphology. Normal central canal and intervertebral neuroforamina. Atherosclerotic calcific plaques at the level of the carotid bifurcations. CT/Spine Cervical without Contras IMPRESSION: Multilevel degenerative changes, as described above. Electronically Signed: Александр Burns MD at 12:09 EST ,
[2022-08-14 10:51] VITALS: O2SAT 96
--- NOTE | 2022-08-14 10:53 | EDS_ITS ---
HPI HPI - Fall History of Present Illness Chief Complaint: Fall Narrative Narrative: 67-year-old female past medical history of degenerative joint disease of the hips, chronic arthritis, presents via EMS status post fall. She states she was using her cane and trying to step down off the front porch stair and fell forward. She was wearing her glasses. She sustained a contusion to her nasal bridge. She also sustained abrasion to her right knee. She states that her right knee is swelling and painful to move. She denies loss of consciousness. She complains of facial pain, neck pain, low back pain, right hip and knee pain. Additionally, her niece who is her maintenance mechanic supervisor states that she has had a cough for a week and they were going to the primary care physician for antibiotics. She complains of pain on her right side of her body because she fell onto her right side. She had to have someone help pick her up. She was able to ambulate minimally afterwards. PFSH PFS Medical History Arm weakness CAD (coronary artery disease) COPD (chronic obstructive pulmonary disease) GERD (gastroesophageal reflux disease) Grand mal seizure Heart attack Heart failure History of back problems History of breast cancer History of cervical cancer History of COPD History of migraine History of seizures Hx of cardiac murmur Hx of chronic arthritis Hx of chronic bronchitis Hx of emotional problems Hx of hearing loss Hx of hypoglycemia Hx of seasonal allergies Leg weakness Major depressive disorder Paroxysmal SVT (supraventricular tachycardia) Posttraumatic stress disorder Stroke-like symptoms TBI (traumatic brain injury) TIA (transient ischemic attack) Vocal cord polyp Wears glasses Home Medications albuterol sulfate 90 mcg/actuation aerosol inhaler (Ventolin HFA) 90 mcg inhalation Q4H PRN PRN sob 05/25/22 [History Last Taken Unknown] budesonide-formoterol HFA 80 mcg-4.5 mcg/actuation aerosol inhaler (Symbicort) 2 puff inhalation BID breathing 05/25/22 [History Last Taken 06/29/22] diclofenac sodium 75 mg tablet,delayed release 75 mg PO BID pain 05/25/22 [History Last Taken 05/25/22] omeprazole 40 mg capsule,delayed release 80 mg PO DAILY reflux 05/25/22 [History Last Taken 05/25/22] simvastatin 40 mg tablet 40 mg PO QHS cholesterol 05/25/22 [History Last Taken 05/24/22] trazodone 150 mg tablet 300 mg PO QHS sleep #20 tabs 06/14/22 [Rx Last Taken Unknown] aspirin 81 mg tablet,delayed release (Adult Low Dose Aspirin) 81 mg PO DAILY heart health 06/26/22 [History Last Taken Unknown] aripiprazole 5 mg tablet 5 mg PO QHS mental health #30 tabs 06/27/22 [Rx Last Taken Unknown] albuterol sulfate 90 mcg/actuation aerosol inhaler 1 inh inhalation Q4H PRN breathing 06/30/22 [History Last Taken Unknown] benzonatate 100 mg capsule 200 mg PO BID cough 06/30/22 [History Last Taken 06/30/22] diazepam 5 mg tablet 5 mg PO TID anxiety 06/30/22 [History Last Taken Unknown] handicap placard #1 ea 07/23/22 [Rx Last Taken Unknown] Saccharomyces boulardii 250 mg capsule (Digest Probiotic (S.boulardii)) 10,000 mmu cells PO DAILY #30 caps 07/31/22 [Rx Last Taken Unknown] methocarbamol 750 mg tablet 500 mg PO .QID pain 07/31/22 [History Last Taken Unknown] baclofen 10 mg tablet 20 mg PO DAILY #360 tabs 08/02/22 [Rx Last Taken Unknown] dicyclomine 20 mg tablet 20 mg PO BID #60 tabs 08/07/22 [Rx Last Taken Unknown] Allergy/AdvReac Type Severity Reaction Status Date / Time divalproex sodium Allergy Angioedema Verified 08/14/22 10:24 [From Depakote] Influenza Virus Vaccines Allergy Angioedema Verified 08/14/22 10:24 [flu shot] phenytoin [From Dilantin] Allergy Hives Verified 08/14/22 10:24 propofol Allergy Angioedema Verified 08/14/22 10:24 Iodinated Contrast Media AdvReac Intermediate Angioedema Verified 08/14/22 10:24 Latex, Natural Rubber AdvReac Swelling Verified 08/14/22 10:24 meloxicam AdvReac Other Verified 08/14/22 10:24 oxybutynin [From Ditropan] AdvReac Swelling Verified 08/14/22 10:24 pravastatin AdvReac Swelling Verified 08/14/22 10:24 tetracycline AdvReac Itching Verified 08/14/22 10:24 tramadol AdvReac Other Verified 08/14/22 10:24 Family History Other Adopted Surgical History History of total right hip replacement Hx of cholecystectomy S/P ALLAN (total abdominal hysterectomy) Social History household members: other details: Living with her keya. 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 HEENT: No sore throat. Diffuse cervical neck pain. No loss of vision. No rhinorrhea. Nasal bridge blunt trauma with abrasion and swelling. Cardiovascular: No chest pain. No palpitations. No pedal edema. Respiratory: No cough, no shortness of breath. Abdominal: No abdominal pain. No nausea. No vomiting. Genitourinary: No dysuria. No hematuria. Musculoskeletal: No myalgias. Right-sided arthralgias including right knee and right hip. Positive low back pain. Neurologic: No headaches. No dizziness. No lightheadedness. Skin: No rash. No change in color. Psychiatric: No depression. No anxiety. EXAM Physical Exam Narrative Exam Narrative: Afebrile. Vital signs noted. HEENT: Normocephalic. Positive ecchymosis midline forehead. Positive abrasion to bridge of nose without active bleeding. No nasal septal hematoma.. PERRL, EOMI. Neck soft and supple. No point tenderness or step off. Diffuse tenderness to palpation. Cardiovascular: Regular rate and rhythm. No murmurs, rubs, or gallops appreciated. Respiratory: No tachypnea. Lungs clear to auscultation bilaterally. Gastrointestinal: Abdomen soft, nontender, with normoactive bowel sounds. No rebound or guarding. Neurological: Awake. Alert. Oriented x3. Nonfocal, nonlateralizing. Skin: No rash. Normal color. No pallor. Musculoskeletal: No pedal edema. Pelvis is stable. Diffuse tenderness to palpation right hip. Positive abrasion to right knee. Range of motion of right knee slightly limited secondary to pain. Minimal swelling. Positive abrasion without active bleeding on patella. No tibial tenderness. Palpable dorsalis pedis pulse. No noted shortening or pain with logrolling of right leg. Const Vital Signs: 08/14/22 10:22 08/14/22 10:51 Temperature 97.9 F Temperature Source Temporal Pulse Rate 56 L Respiratory Rate 18 Respiratory Effort Normal Non-Labored Respiratory Depth Normal Respiratory Pattern Normal Blood Pressure 133/54 H Blood Pressure Mean 80 Pulse Ox 99 96 Oxygen Delivery Method Room Air Room Air MDM MDM MDM Narrative Medical decision making narrative: Patient was updated on her tetanus immunization as she states it is probably been 10 years since she last received it. She was given a [place] tablet for analgesia. It was reported by EMS that she did ambulate back into the house after being helped up and to the cot. I will obtain CT imaging of the brain, C- spine, and lumbar spine to look for fracture. Additionally, I obtained a right hip and right knee x-ray. As she has been coughing, chest x-ray was obtained in 1 view. My interpretation of her chest x-ray shows no evidence of pneumonia. I do not feel that antibiotics are indicated. My interpretation of her hip and pelvis x- ray shows right total hip arthroplasty/replacement without evidence of periprosthetic fracture. X-ray of the right knee with my interpretation shows no acute process or fracture. CT of the brain, cervical spine, and lumbar spine shows no acute fracture or hemorrhage. There are degenerative changes of the cervical and lumbar spine. At this point in time, I feel she be discharged safely home with follow-up. She will continue her [place] as needed for pain. Return instructions were reviewed. Disposition is discharged home in stable condition. Radiography Diagnostic Testing: Clinical Impression(s) from Imaging Studies Brain CT 08/14/22 10:50 IMPRESSION: Air fluid level in the left maxillary sinus. No acute intracranial abnormality is seen. Electronically Signed: Александр Burns MD at 12:07 EST , Cervical Spine CT 08/14/22 10:50 IMPRESSION: Multilevel degenerative changes, as described above. Electronically Signed: Александр Burns MD at 12:09 EST Reading Location ID and State: [facility] / [place] , Service support , Hip/Pelvis X-Ray 08/14/22 10:50 IMPRESSION: Status post right total hip replacement. There has been no change. Electronically Signed: Александр Burns MD at 12:14 EST Reading Location ID and State: [facility] / [place] , Service support , Knee X-Ray 08/14/22 10:50 IMPRESSION: Normal x-ray examination of the knee. Electronically Signed: Александр Burns MD at 12:14 EST , Lumbar Spine CT 08/14/22 10:50 IMPRESSION: Multilevel degenerative changes, as described above. Electronically Signed: Александр Burns MD at 12:12 EST , Chest X-Ray 08/14/22 11:20 IMPRESSION: No acute abnormality is seen. Electronically Signed: Александр Burns MD at 12:14 EST , Discharge Plan Triage Chief Complaint: Fall ED Provider: Lamonte Leonard Dx/Rx/DC Orders Clinical Impression: Fall down stairs, Forehead contusion, Abrasion, Nasal contusion, Contusion of hip, right, Contusion of knee, right, Low back pain, Cervical strain Instructions: ED Abrasion, ED Contusion, Lower Extremity, ED Facial Contusion, ED Back and Neck Pain, General Prescriptions: No Action trazodone 150 mg tablet 300 mg PO QHS Qty: 20 0RF aspirin [Adult Low Dose Aspirin] 81 mg tablet,delayed release (DR/EC) 81 mg PO DAILY (DME) handicap placard See Rx Instructions .ROUTE .MEDSUPPLY Qty: 1 0RF Rx Instructions: Length of time: 3 years aripiprazole 5 mg tablet 5 mg PO QHS Qty: 30 2RF Saccharomyces boulardii [Digest Probiotic (S.boulardii)] 250 mg capsule 10,000 mmu cells PO DAILY Qty: 30 0RF omeprazole 40 mg Capsule,Delayed Release(Dr/Ec) 80 mg PO DAILY simvastatin 40 mg Tablet 40 mg PO QHS diclofenac sodium 75 mg Tablet,Delayed Release (Dr/Ec) 75 mg PO BID albuterol sulfate [Ventolin HFA] 90 mcg/actuation Hfa Aerosol Inhaler 90 mcg INHALATION Q4H PRN PRN (Reason: sob) budesonide-formoterol [Symbicort] 80-4.5 mcg/actuation Hfa Aerosol Inhaler 2 puff INHALATION BID methocarbamol 750 mg tablet 500 mg PO .QID benzonatate 100 mg Capsule 200 mg PO BID albuterol sulfate 90 mcg/actuation HFA aerosol inhaler 1 inh INHALATION Q4H PRN (Reason: breathing) diazepam 5 mg tablet 5 mg PO TID baclofen 10 mg tablet 20 mg PO DAILY Qty: 360 3RF Rx Instructions: take 2 tablets PO twice daily dicyclomine 20 mg tablet 20 mg PO BID Qty: 60 0RF Primary Care Provider: Jenae Deng Referrals: Jenae Deng MD [Primary Care Provider] - 3-5 Days if not improving Disposition Disposition: Home, Self Care
--- NOTE | 2022-08-14 11:20 | RAD_ITS ---
STUDY: X-RAY CHEST REASON FOR EXAM: Female, 67 years old. Cough TECHNIQUE: Single AP portable view of the chest. COMPARISON: Comparison is made with prior study dated 06/30/2022. FINDINGS: The lungs are clear and expanded. There is no demonstrated pleural abnormality. Normal size heart. Normal mediastinum and cash. Normal visualized pulmonary arteries. Normal visualized aortic arch and descending thoracic aorta. Normal visualized thoracic spine. Degenerative changes of the right shoulder. There is no demonstrated abnormality of the visualized soft tissue structures of the upper abdomen. RAD/Chest 1 View (Portable) IMPRESSION: No acute abnormality is seen. Electronically Signed: Александр Burns MD at 12:14 EST ,
[2022-08-14] MEDS: HYDROcodone Bitartrate/Apap 5/325 Tablet PO (11:38)
[2022-08-14] MEDS: Diphth,Pertuss(Acell),Tet Vac 0.5 ML Vial IM (11:39)
[2022-08-14 12:21] VITALS: BP 124/78; PULSE 98; RESP 16; TEMP 36.6; O2SAT 99
== END 2022-08-14 12:33 | disposition home or self-care (01) ==
PROVIDERS: Emergency Provider Emergency Medicine; PCP Internal Medicine; Visit Provider Emergency Medicine
DX: S80.01XA Contusion of right knee, initial encounter (principal); J44.9 Chronic obstructive pulmonary disease, unspecified; I50.9 Heart failure, unspecified; I25.10 Atherosclerotic heart disease of native coronary artery without angina pectoris; S00.33XA Contusion of nose, initial encounter; M54.50 Low back pain, unspecified; S00.83XA Contusion of other part of head, initial encounter; S70.01XA Contusion of right hip, initial encounter; M16.0 Bilateral primary osteoarthritis of hip; S16.1XXA Strain of muscle, fascia and tendon at neck level, initial encounter; Z96.641 Presence of right artificial hip joint; W10.9XXA Fall (on) (from) unspecified stairs and steps, initial encounter; Z23 Encounter for immunization
CPT/HCPCS: 70450; 71045; 72125; 72131; 73502; 73564; 90471; 90715; 99284

== ENCOUNTER → 2022-08-20 | Outpatient (CLI) | payer MEDICARE, MEDICAID, SELFPAY ==
--- NOTE | 2022-08-20 13:55 | SP.MBSS_ITS ---
Modified Barium Swallow - Patient Information Study Date: 08/20/22 Study Time: 13:00 Direct Billable Minutes: 90 Total Minutes procedure & reportin Diagnosis: Dysphagia, unspecified (R13.10) Referring Physician: Jenae Deng Reason for Referral: Objectively assess swallow function, assess risk for aspiration, and determine recommendations for least restrictive diet textures and compensatory strategies to improve safety of swallow. Medical History: The patient is a 67-year-old female with PMH including COPD, GERD, grand mal seizure, heart attack, heart failure, stroke-like symptoms, TIA, and TBI (SEE EMR for full PMH). Pt was referred for MBSS by Dr. Deng following an office visit to address cough with congestion, acute URI, contusion of knee, and unsteady gait. Pt reported having two mini-strokes recently, the first was in May 2022. Since her first mini-stroke, she has had difficulty swallowing liquids with sensation of choking several times per day and difficulty swallowing foods that are creamy. She is already seeing PT and OT at rehab. She has been referred to ST for cognitive and dysphagia therapy, but was recommended for MBSS prior to OP ST evaluation. Current Diet Ordered: Regular textures / Thin liquids Dentition: WNL Mental Status: WNL - Able to follow commands for evaluation Respiratory Status: Oxygenating on Room Air - Penetration-Aspiration Scale Penetration-Aspiration Scale: OBJECTIVE ASSESSMENT OF SWALLOW FUNCTION (QUANTITATIVE ? PER TRIAL): PENETRATION / ASPIRATION SCALE (MARISCAL): 1 = does not enter airway 2 = enters airway/above vocal folds/ejected 3 = enters airway/above vocal folds/not ejected 4 = enters airway/contacts vocal folds/ejected 5 = enters airway/contacts vocal folds/not ejected 6 = enters airway/below vocal folds/ejected 7 = enters airway/below vocal folds/not ejected despite effort 8 = enters airway/below vocal folds/no effort VIDEOFLOROSCOPIC SCALE SCORE (MARISCAL): Grade I = aspiration of material that has penetrated into the laryngeal vestibule, intact cough reflex Grade II = aspiration < 10 % of the bolus, intact cough reflex Grade III = aspiration of < 10 % of the bolus, reduced cough reflex or aspiration of > 10 % of the bolus, intact cough reflex Grade IV = aspiration of > 10 % of the bolus, reduced cough reflex - Penetration-Aspiration Scale Score Thin Liquid via teaspoon Result: 1= does not enter airway Thin Liquid via teaspoon Trial 2 Result: 2= enter airway/above vocal folds/ejected Thin Liquid via small single sip from cup Result: 2= enter airway/above vocal folds/ejected Thin Liquid via sequential sips from cup Result: 2= enter airway/above vocal folds/ejected [place] Thick Liquid via small single sip from cup Result: 2= enter airway/above vocal folds/ejected Honey Thick Liquid via small single sip from cup Result: 1= does not enter airway Pudding via teaspoon with esophageal screen Result: 2= enter airway/above vocal folds/ejected 1/2 Cookie Result: 1= does not enter airway Thin Liquid via sequential sips from straw Result: 2= enter airway/above vocal folds/ejected - Oral Phase Labial Seal: No Labial Escape Tongue Control During Bolus Hold: Cohesive bolus between tongue to palatal seal Bolus Preparation/Mastication: Disorganized chewing/mashing with solid pieces of bolus unchewed Bolus Transport/Lingual Motion: Brisk tongue motion Oral Residue: Trace residue lining oral structures - Pharyngeal Phase Soft Palate Elevation: No bolus between soft palate and pharyngeal wall Laryngeal Elevation: Partial superior movement thyroid cart/partial apprx aryt- epig petiole Anterior Hyoid Excursion: Complete anterior movement Epiglottic Movement: Complete inversion Laryngeal Vestibule Closure at Height of Swallow: Incomplete; narrow column of air/contrast in laryngeal vestibule Pharyngeal Stripping Wave: Present - diminished Pharyngoesophageal Segment Opening: Complete distension and complete duration; no obstruction of flow Tongue Base Retraction: Narrow column of contrast between tongue base & post. pharyngeal wall Pharyngeal Residue: Collection of residue within or on pharyngeal structures - Esophageal Phase Esophageal Clearance: Esophageal retention w/ retrograde flow through pharyngoesophageal seg - trace honey/moderately thick liquid - Diagnosis/Impression Diagnosis: Mild oropharyngeal phase dysphagia (R13.12) Impression: The oral phase is primarily marked by... -Decreased mastication with small pieces of the cookie appearing unchewed. Pt did demonstrated good oral and pharyngeal clearance of cookie, but would benefit from more thorough chewing. The pharyngeal phase is primarily marked by... -Mildly decreased airway closure during the swallow due to decreased laryngeal elevation. -Mildly decreased tongue base retraction and pharyngeal stripping wave with resulting trace-mild pharyngeal residues after the swallow. -No aspiration observed during the study. Frequent trace laryngeal penetration across thin and nectar thick liquid consistencies, which did appear to fully eject from the laryngeal vestibule after the swallow. The esophageal phase is primarily marked by... -Trace retrograde flow of moderately/honey thick liquids through UES. -Timely esophageal clearance of pudding. - Recommendations Diet: Regular Textures, Thin Liquids Compensatory Strategies: Small Bites - chew thoroughly, Small Sips, Slow Rate, Sitting upright Recommend Repeat Modified Barium Swallow: No Need for Skilled Speech Therapy Services: Yes Comment: Will recommend the patient for outpatient dysphagia therapy to address mild deficits in oropharyngeal swallow function. Will recommend the patient for oropharyngeal strengthening to improve laryngeal elevation, tongue base retraction, and pharyngeal contraction (CTAR, Lis, Yolande, effortful). The patient would benefit from thorough education regarding diet recommendations and recommended compensatory strategies. The patient reported she has also been referred to OP ST for cognitive evaluation. Education Completed: 1. Described result of evaluation., 7. Pt requires further education on strategies & risks. - Status Active ST Patient: Active - Contact Information [facility] Speech Therapy:: Carissa Aguilar M.A. [facility] Speech-Language Pathologist [facility] [address] [place] [address] [phone] 08/20/22 14:11
== END | disposition home or self-care (01) ==
LOC: RAD 12:41
PROVIDERS: PCP Internal Medicine; Referring Provider Internal Medicine; Visit Provider Internal Medicine
DX: R29.90 Unspecified symptoms and signs involving the nervous system (principal)
CPT/HCPCS: 74230; 92611

== ENCOUNTER → 2022-09-26 | Outpatient (CLI) | payer MEDICARE, MEDICAID, SELFPAY ==
--- NOTE | 2022-09-26 | FLU_PTH ---
PATIENT: HALI BENJAMIN LOC: [facility] U#:[id number] AGE/SX: 67/F ROOM: RE09/26/[address]: Dr. Roosevelt Cardona MD : 1955 BED: DIS: 09/26/2022 SPEC #: [id number] RECD: 09/26/22 12:14 STATUS: GIANCARLO REAubrie #: [id number] YUSRA: 09/26/22 00:[address]: Roosevelt Cardona DEPT: CYTOLOGY RECD BY: Kade Hernandez ENTERED: 09/27/22 09:11 SP TYPE: Fluid OTHR DR: MD Glenis Prieto NP-C Tissues: A - Thyroid gland, NOS B - Thyroid gland, NOS Procedures: Special Stain Group II Surgery Specimen Level IV Cytospin Fluid HEADER OPERATION: Fine needle aspiration right thyroid PRE-OP DIAGNOSIS: Multinodular goiter TISSUE SUBMITTED: A ? FNA right thyroid nodule fluid, B - FNA right thyroid nodule x12 slides DIAGNOSIS CYTOLOGY A. Fine needle aspiration, right thyroid nodule fluid (cytospin and cell block): Negative for malignant cells. See comment. B. Fine needle aspiration, right thyroid nodule (smears): Adequate for evaluation. Benign, consistent with benign follicular/colloid nodule ([place] Category II). See comment. AM:avila 09/28/2022 COMMENT A. The specimen contains benign follicular cells. B. The [place] System for thyroid diagnostic categorization was used in the evaluation of this case. The specimen is adequate for evaluation. CYTOLOGY STUDY Slides are reviewed. CYTOLOGY GROSS A - Received is 30 ml of light brown cloudy fluid labeled with the patient's name and and designated per the requisition as right thyroid nodule. Submitted for cytology preparation including cell block. B - Received are 12 smears labeled with the patient's name and designated per the requisition as right thyroid nodule. Submitted for staining. / avila 09/27/2022 TC:5 CPT: 72928 x2, 16800
== END | disposition home or self-care (01) ==
LOC: LABSPEC 12:31
PROVIDERS: PCP Internal Medicine; Visit Provider Surgery
DX: E04.2 Nontoxic multinodular goiter (principal)
CPT/HCPCS: 88108; 88305; 88313

== ENCOUNTER 2022-10-01 14:30 | Outpatient (RCR) | payer MEDICARE, MEDICAID, SELFPAY ==
--- NOTE | 2022-06-07 14:33 | HP.PTEVAL_ITS ---
Patient's Visit Information HALI BENJAMIN is a 66 year old F referred to Physical Therapy by Dr. Taylor Godoy MD with a diagnosis of LE Weakness. Date of Evaluation: 06/07/22 Physical Therapist: Beckie Florentino DPT - Visit Plan Frequency: 2x /Week Duration: 4 Weeks Plan: Gentle! Focus on LE and core strength/stabilization. HEP Given IE: Quad set, glut set, supine marching, hip add, hip abduction - Subjective Patient reports that she has had two TIA in the last 4 weeks- she has weakness in both legs Right>Left and her back. Her legs are more weakness but she has pain in the hip joints and back. The pain is not new but its worse. The pain is there all the time. She has had x-rays or her back which are in [place]- she has only been here two weeks. She is currently living in her niece's basement and has to do the stairs up/down. She only does them 1x a day. She has to shower upstairs. They don't have a couch or chairs so they are mostly laying in bed all day. They are moving into a house in a week and a half- they will have all their furniture and will be on one floor then. She has been treated by injections and PT prior. Her back has gotten a lot worse since the TIA. She fell 2 weeks prior 2x but now with the TIA. She is prone to falling- she was given a walker yesterday. She was using a cane prior to her falls- for about 8 months. She has had a right hip replacement that is turning lose. She has to have her right hip fixed and plans to find a doctor. She also has had hip surgery on the left and needs to make sure the hardwear in still in place. She has not had any back surgeries. Worst: 04/11 Agg: trying to get up/down, standing to long Eases: hot showers Best: 03/11. Pain along the belt like and then radiates down to the hips right>left and then up to the thoracic. 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 True birthday- 06/13/1950 but was adopted and the state [facility] changed it. She has no N/T in the LE. She describes the pain as sharp and shooting. Sleep: disturbed- trying to get up out of the bed. No loss or change in bowel or bladder. Fully I prior to TIA's- not currently driving due to the TIA. She has help getting in/out of the bathtub and getting up/down stairs. Someone stands in front of her for safety when she comes down and someone behind her when she goes up. When she had her fall she fell on her right side- she has been in/out of the hospital since then. She was admitted to the hosptital for a week and was then d/c home- May 29. Went back to [facility] with migraine and cluster CANNON- treated and released 2 days ago. She normally takes Oxycodone- and was in pain management in [place] but has not established here yet- the pain medication was helpful. Tylenol and Ibuprofen take the edge off but its doesn't help a ton. PMHx/Meds: no changes since d/c from hospital. - Objective Posture: FH, RS- can correct but does not maintain. Gait: ambulate with shortened stride length- FWW- decreased shelley. HR/TR: able with UE A- reports pain. SLS: weight shift but unable to SLS due to pain. ROM: WFL. Strength: Core: poor, Left: Hip: 4/5 throughout Knee: 4+/5, Ankle: 4+/5 Right: Hip: 3+/5 throughout Knee: 4+/5, Ankle: 4+/5 - Balance/Special Test Scores Lower Extremity Functional Score: 9 TUG Test Time Seconds: 33 30 Second Chair Rise Test Seconds: 4 - Goals Goal 1:: Patient will be I with HEP and progression Goal Time Frame: 4-6 Weeks Goal 2:: Patient will ambulate >300 feet with a normalized gait pattern and LRD Goal Time Frame: 4-6 Weeks Goal 3:: Patient will asc/desc 8 recip with 1 HR Goal Time Frame: 4-6 Weeks Goal 4:: Patient will report 80% improvement Goal Time Frame: 4-6 Weeks Goal 5:: Patient will maintain proper posture t/o tx session to demo increased core s/s Goal Time Frame: 4-6 Weeks - Rehabilitation Potential Physical Therapy Diagnosis: Patient presents with hypomobility- she has decreased LE and core strength/stabilization, flex and muscular endurance leading to decreased particiation with ADL's. Rehabilitation Potential: Fair - Anticipated Interventions Patient/Client Instruction: Educate patient on: Benefits of Fitness Program Therapeutic Exercise to Include: Strength training, Endurance training, Balance training, Coordination, Agility training, Body mechanics, Postural training, Flexibilty training, Gait and locomotor training, Neuromotor development, Dynamic Lumbar Stabilization, Scapular Strength/Stabilization For the Purpose of:: To improve muscle performance and motor function Thank you for the opportunity to evaluate your patient. For Medicare and Medicare HMO plans, please review the plan of care and approve it. It will need to be FAXED BACK to us at [phone] for Medicare purposes. For Medicare only, by signing this I certify the plan of care. Please let me know if there are questions or concerns regarding this plan of care. Physician Signature: Date:
--- NOTE | 2022-06-07 14:43 | HP.OTEVAL ---
Patient's Visit Information HALI BENJAMIN is a 66 year old F, referred to Occupational Therapy by Dr. Taylor Godoy MD, with a diagnosis of right side weakness, debility, TIA. Date of Evaluation: 06/07/22 Occupational Therapist: Nisa Plata, BRITNEY/Shashi, CHT - Subjective This 66 year old female was seen for OT eval with dx of TIA 05/29/22. pt went to ER and spent 5 days at the hospital and did get therapy when she was there- pt staying with niece until she can move into her new home. Pt states she is mtg. and is being carful not to fall. pt states most trouble when she returned after hospital stay with turning knobs on and off in shower ( pt is standing). pt also states she is trying to move in her new home and wants to put items away. will move in . Is staying with family until she can move. - ADLs Comments: turning handle in shower Comments: flushing toilet Kitchen: Open jars, Open bottle caps Comments: Pt states she lives in 1 story home with no entry steps. has walk in shower -. has ww and was ambulating with a cane in Oct. and since her TIA is walking with her ww. - Pain right UE 4 Pain Intensity Range: 4, 5 - ROM ROM Comments: ROM is WNL - Strength Shoulder: right 5# left 9# Elbow: right 4# left 10# Nitrocellulose Maker: right 22# left 33# Lateral Pinch: right 4# left 4# Tripod Pinch: right unable 2# Strength Comments: pt demo with weakness of right UE limiting her IND with ADLS and IADls - Sensation Sensation Comments: denies - Nine Hole Peg Right: 31.03 Left: 27.39 - Quick DASH-Disab of Arm,Shoulder& Hand Quick DASH Score: 54.5450 - Goals Goal:: pt will demo a increase in right UE FET2 test by 5# or greater to increase pts ind. with ADLs and IADLs. 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 with ADLs and IADls by d.c Goal:: pt will report no pain greater than 1/10 with use of right UE with ADls and IADls by d/c Goal:: pt will report IND with opening jar lids, bottle tops and turning on and off the shower knobs IND by d/c - Rehabilitation General Assessment: pt arrives to OT session 1 week and 2 days post TIA and demo with right UE weakness limiting her IND with ADLs and IADls/. pt would benefit from OT services 2x week for 4 weeks to assist in increase strength to increase pts ind. with ADLs. pt demo understanding and agree to POC. Rehabilitation Potential: Good - Anticipated Interventions Strengthening, Fine Motor Coord/Darren, Neuro Reeducation, ADL Training, Education re Diagnosis, Home Program - Visit Plan Frequency: 1-2x /Week Duration: 4 Weeks TEXT: Thank you for the opportunity to evaluate your patient. For Medicare and Medicare HMO plans, please review the plan of care and approve it. It will need to be FAXED BACK to us at [phone] for Medicare purposes. Please let me know if there are questions or concerns regarding this plan of care. Physician Signature: Date:
--- NOTE | 2022-08-28 13:58 | HP.OTDCSUM ---
It has been my pleasure to treat HALI BENJAMIN under orders from Dr. Taylor Godoy MD, for the diagnosis of right side weakness, debility, TIA for a total of 11 visit(s). Please see the following information for a summary of their discharge status. % Improvement: 40 Objective/Function: Right cigar packer and picker 40# increase from 22#. left cigar packer and picker strength 45# increase from 33#. right lateral pinch 4# same as eval. left lateral pinch 4# left 4#. right shoulder peak force 10# increase from 5# left 12# increase from 9#. right biceps 24#increase from 8# left 24# increase 8#. right 9 hole peg test 23.6 sec. a decrease from 31.0 sec. left 9 hole peg test 21.68 a decrease from 27.3 sec. pt has made great gains with her strength and can be d/c with HEP. Patient Goals: Use Hand/Wrist/Arm Normally Again Goal:: pt will demo a increase in right UE FET2 test by 5# or greater to increase pts ind. with ADLs and IADLs. pt will demo a increase in right cigar packer and picker by 10# or greater to increase pts ind. with ADLs and IADls by d.c Goal:: pt will report no pain greater than 1/10 with use of right UE with ADls and IADls by d/c Goal:: pt will report IND with opening jar lids, bottle tops and turning on and off the shower knobs IND by d/c Plan: continue POC Discharge Comments: pt has met OT goals and is d/c with HEP. pt agrees to POC. If there are questions or concerns regarding this patient's occupational therapy, please fell free to call me at [phone]. Thank you for the referral of this patient. Sincerely, Nisa Plata, OTR/L, CHT
--- NOTE | 2022-08-30 10:54 | ST ---
[facility] Speech Pathology [address] [place] [address] Modified Barium Swallow Study MR#: [id number] Acct: [id number] Name: HALI BENJAMIN Rep #: [id number] : 1955 67 From: Carissa Aguilar M.A., [facility] Modified Barium Swallow - Patient Information Study Date: 08/20/22 Study Time: 13:00 Direct Billable Minutes: 90 Total Minutes procedure & reportin Diagnosis: Dysphagia, unspecified (R13.10) Referring Physician: Jenae Deng Reason for Referral: Objectively assess swallow function, assess risk for aspiration, and determine recommendations for least restrictive diet textures and compensatory strategies to improve safety of swallow. Medical History: The patient is a 67-year-old female with PMH including COPD, GERD, grand mal seizure, heart attack, heart failure, stroke-like symptoms, TIA, and TBI (SEE EMR for full PMH). Pt was referred for MBSS by Dr. Deng following an office visit to address cough with congestion, acute URI, contusion of knee, and unsteady gait. Pt reported having two mini-strokes recently, the first was in May 2022. Since her first mini-stroke, she has had difficulty swallowing liquids with sensation of choking several times per day and difficulty swallowing foods that are creamy. She is already seeing PT and OT at rehab. She has been referred to ST for cognitive and dysphagia therapy, but was recommended for MBSS prior to OP ST evaluation. Current Diet Ordered: Regular textures / Thin liquids Dentition: WNL Mental Status: WNL - Able to follow commands for evaluation Respiratory Status: Oxygenating on Room Air - Penetration-Aspiration Scale Penetration-Aspiration Scale: OBJECTIVE ASSESSMENT OF SWALLOW FUNCTION (QUANTITATIVE ? PER TRIAL): PENETRATION / ASPIRATION SCALE (MARISCAL): 1 = does not enter airway 2 = enters airway/above vocal folds/ejected 3 = enters airway/above vocal folds/not ejected 4 = enters airway/contacts vocal folds/ejected 5 = enters airway/contacts vocal folds/not ejected 6 = enters airway/below vocal folds/ejected 7 = enters airway/below vocal folds/not ejected despite effort 8 = enters airway/below vocal folds/no effort VIDEOFLOROSCOPIC SCALE SCORE (MARISCAL): Grade I = aspiration of material that has penetrated into the laryngeal vestibule, intact cough reflex Grade II = aspiration < 10 % of the bolus, intact cough reflex Grade III = aspiration of < 10 % of the bolus, reduced cough reflex or aspiration of > 10 % of the bolus, intact cough reflex Grade IV = aspiration of > 10 % of the bolus, reduced cough reflex - Penetration-Aspiration Scale Score Thin Liquid via teaspoon Result: 1= does not enter airway Thin Liquid via teaspoon Trial 2 Result: 2= enter airway/above vocal folds/ejected Thin Liquid via small single sip from cup Result: 2= enter airway/above vocal folds/ejected Thin Liquid via sequential sips from cup Result: 2= enter airway/above vocal folds/ejected [place] Thick Liquid via small single sip from cup Result: 2= enter airway/above vocal folds/ejected Honey Thick Liquid via small single sip from cup Result: 1= does not enter airway Pudding via teaspoon with esophageal screen Result: 2= enter airway/above vocal folds/ejected 1/2 Cookie Result: 1= does not enter airway Thin Liquid via sequential sips from straw Result: 2= enter airway/above vocal folds/ejected - Oral Phase Labial Seal: No Labial Escape Tongue Control During Bolus Hold: Cohesive bolus between tongue to palatal seal Bolus Preparation/Mastication: Disorganized chewing/mashing with solid pieces of bolus unchewed Bolus Transport/Lingual Motion: Brisk tongue motion Oral Residue: Trace residue lining oral structures - Pharyngeal Phase Soft Palate Elevation: No bolus between soft palate and pharyngeal wall Laryngeal Elevation: Partial superior movement thyroid cart/partial apprx aryt-epig petiole Anterior Hyoid Excursion: Complete anterior movement Epiglottic Movement: Complete inversion Laryngeal Vestibule Closure at Height of Swallow: Incomplete; narrow column of air/contrast in laryngeal vestibule Pharyngeal Stripping Wave: Present - diminished Pharyngoesophageal Segment Opening: Complete distension and complete duration; no obstruction of flow Tongue Base Retraction: Narrow column of contrast between tongue base & post. pharyngeal wall Pharyngeal Residue: Collection of residue within or on pharyngeal structures - Esophageal Phase Esophageal Clearance: Esophageal retention w/ retrograde flow through pharyngoesophageal seg - trace honey/moderately thick liquid - Diagnosis/Impression Diagnosis: Mild oropharyngeal phase dysphagia (R13.12) Impression: The oral phase is primarily marked by... -Decreased mastication with small pieces of the cookie appearing unchewed. Pt did demonstrated good oral and pharyngeal clearance of cookie, but would benefit from more thorough chewing. The pharyngeal phase is primarily marked by... -Mildly decreased airway closure during the swallow due to decreased laryngeal elevation. -Mildly decreased tongue base retraction and pharyngeal stripping wave with resulting trace-mild pharyngeal residues after the swallow. -No aspiration observed during the study. Frequent trace laryngeal penetration across thin and nectar thick liquid consistencies, which did appear to fully eject from the laryngeal vestibule after the swallow. The esophageal phase is primarily marked by... -Trace retrograde flow of moderately/honey thick liquids through UES. -Timely esophageal clearance of pudding. - Recommendations Diet: Regular Textures, Thin Liquids Compensatory Strategies: Small Bites - chew thoroughly, Small Sips, Slow Rate, Sitting upright Recommend Repeat Modified Barium Swallow: No Need for Skilled Speech Therapy Services: Yes Comment: Will recommend the patient for outpatient dysphagia therapy to address mild deficits in oropharyngeal swallow function. Will recommend the patient for oropharyngeal strengthening to improve laryngeal elevation, tongue base retraction, and pharyngeal contraction (CTAR, Lis, Yolande, effortful). The patient would benefit from thorough education regarding diet recommendations and recommended compensatory strategies. The patient reported she has also been referred to OP ST for cognitive evaluation. Education Completed: 1. Described result of evaluation., 7. Pt requires further education on strategies & risks. - Status Active ST Patient: Active - Contact Information [facility] Speech Therapy:: Carissa Aguilar M.A. [facility] Speech-Language Pathologist [facility] [address] [place] [address] [email or web address] [phone] 08/20/22 14:11 08/20/22 1431 <Electronically signed by Carissa Aguilar M.A., CCC[facility]RN [facility]ANC[facility]> Date/Time Carissa Aguilar M.A., CCC-RN ADVANCED Co-Signature Required for all Medicare patients Date/Time Co-Signature CC: ~
--- NOTE | 2022-08-30 12:35 | HP.SP.EVAL ---
History - History Date of Eval: 08/30/22 Previous speech therapy: Yes Results: PT reporting inpatient ST services 12 weeks prior for swallow and cognition. 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 Smoking Status: Never smoker Hx Smoking: No Hx Tobacco Use: No - Pain Is pain an issue with your current prescribed condition?: No Patient Allergies - Allergies Allergies divalproex sodium [From Depakote] Allergy (Verified 08/23/22 11:36) Angioedema Influenza Virus Vaccines [flu shot] Allergy (Verified 08/23/22 11:36) Angioedema hives phenytoin [From Dilantin] Allergy (Verified 08/23/22 11:36) Hives throat swells propofol Allergy (Verified 08/23/22 11:36) Angioedema Iodinated Contrast Media Adverse Reaction (Intermediate, Verified 08/23/22 11:36) Angioedema Latex, Natural Rubber Adverse Reaction (Verified 08/23/22 11:36) Swelling meloxicam Adverse Reaction (Verified 08/23/22 11:36) Other makes me feel loopy oxybutynin [From Ditropan] Adverse Reaction (Verified 08/23/22 11:36) Swelling itching pravastatin Adverse Reaction (Verified 08/23/22 11:36) Swelling tetracycline Adverse Reaction (Verified 08/23/22 11:36) Itching tramadol Adverse Reaction (Verified 08/23/22 11:36) Other just doesnt work Subjective Dysphagia - Symptoms Reported Symptoms/Problems with: Choking - Current Diet Solids Current Diet: Regular - Current Diet Liquids Current Liquids: Thin - Comments Swallow function -: Per Pt difficulty with choking on food and liquids at times though not consistently since post CVA to current. Pt reporting having concerns for dysphagia and cognition. Pt oral motor movements WNL. Pt with limited dentition with posterior molars absent. Pt lingual and labial protraction WNL. Lingual laterization WNL. Pt consuming sips of thin via self feed single sips with no overt s/s of aspiration noted immediately post swallow. Pt with mild coughing during evaluation not during intake or swallow. Pt provided results of MBSS and discussed plan for ST services to target swallow function. Modified Barium Results Hx MBS Report Entered: Yes MBS Results (from prior exam): 12/29/22 10:54 Speech Therapy by Madhavi Coughlin [facility] Speech Pathology [address] [place] [address] Modified Barium Swallow Study MR#: [id number] Acct: [id number] Name: HALI BENJAMIN Rep #: [id number] : 1955 67 From: Carissa Aguilar M.A., [facility] Modified Barium Swallow - Patient Information Study Date: 08/20/22 Study Time: 13:00 Direct Billable Minutes: 90 Total Minutes procedure & reportin Diagnosis: Dysphagia, unspecified (R13.10) Referring Physician: Jenae Deng Reason for Referral: Objectively assess swallow function, assess risk for aspiration, and determine recommendations for least restrictive diet textures and compensatory strategies to improve safety of swallow. Medical History: The patient is a 67-year-old female with PMH including COPD, GERD, grand mal seizure, heart attack, heart failure, stroke-like symptoms, TIA, and TBI (SEE EMR for full PMH). Pt was referred for MBSS by Dr. Deng following an office visit to address cough with congestion, acute URI, contusion of knee, and unsteady gait. Pt reported having two mini-strokes recently, the first was in May 2022. Since her first mini-stroke, she has had difficulty swallowing liquids with sensation of choking several times per day and difficulty swallowing foods that are creamy. She is already seeing PT and OT at rehab. She has been referred to ST for cognitive and dysphagia therapy, but was recommended for MBSS prior to OP ST evaluation. Current Diet Ordered: Regular textures / Thin liquids Dentition: WNL Mental Status: WNL - Able to follow commands for evaluation Respiratory Status: Oxygenating on Room Air - Penetration-Aspiration Scale Penetration-Aspiration Scale: OBJECTIVE ASSESSMENT OF SWALLOW FUNCTION (QUANTITATIVE ? PER TRIAL): PENETRATION / ASPIRATION SCALE (MARISCAL): 1 = does not enter airway 2 = enters airway/above vocal folds/ejected 3 = enters airway/above vocal folds/not ejected 4 = enters airway/contacts vocal folds/ejected 5 = enters airway/contacts vocal folds/not ejected 6 = enters airway/below vocal folds/ejected 7 = enters airway/below vocal folds/not ejected despite effort 8 = enters airway/below vocal folds/no effort VIDEOFLOROSCOPIC SCALE SCORE (MARISCAL): Grade I = aspiration of material that has penetrated into the laryngeal vestibule, intact cough reflex Grade II = aspiration < 10 % of the bolus, intact cough reflex Grade III = aspiration of < 10 % of the bolus, reduced cough reflex or aspiration of > 10 % of the bolus, intact cough reflex Grade IV = aspiration of > 10 % of the bolus, reduced cough reflex - Penetration-Aspiration Scale Score Thin Liquid via teaspoon Result: 1= does not enter airway Thin Liquid via teaspoon Trial 2 Result: 2= enter airway/above vocal folds/ejected Thin Liquid via small single sip from cup Result: 2= enter airway/above vocal folds/ejected Thin Liquid via sequential sips from cup Result: 2= enter airway/above vocal folds/ejected [place] Thick Liquid via small single sip from cup Result: 2= enter airway/above vocal folds/ejected Honey Thick Liquid via small single sip from cup Result: 1= does not enter airway Pudding via teaspoon with esophageal screen Result: 2= enter airway/above vocal folds/ejected 1/2 Cookie Result: 1= does not enter airway Thin Liquid via sequential sips from straw Result: 2= enter airway/above vocal folds/ejected - Oral Phase Labial Seal: No Labial Escape Tongue Control During Bolus Hold: Cohesive bolus between tongue to palatal seal Bolus Preparation/Mastication: Disorganized chewing/mashing with solid pieces of bolus unchewed Bolus Transport/Lingual Motion: Brisk tongue motion Oral Residue: Trace residue lining oral structures - Pharyngeal Phase Soft Palate Elevation: No bolus between soft palate and pharyngeal wall Laryngeal Elevation: Partial superior movement thyroid cart/partial apprx aryt-epig petiole Anterior Hyoid Excursion: Complete anterior movement Epiglottic Movement: Complete inversion Laryngeal Vestibule Closure at Height of Swallow: Incomplete; narrow column of air/contrast in laryngeal vestibule Pharyngeal Stripping Wave: Present - diminished Pharyngoesophageal Segment Opening: Complete distension and complete duration; no obstruction of flow Tongue Base Retraction: Narrow column of contrast between tongue base & post. pharyngeal wall Pharyngeal Residue: Collection of residue within or on pharyngeal structures - Esophageal Phase Esophageal Clearance: Esophageal retention w/ retrograde flow through pharyngoesophageal seg - trace honey/moderately thick liquid - Diagnosis/Impression Diagnosis: Mild oropharyngeal phase dysphagia (R13.12) Impression: The oral phase is primarily marked by... -Decreased mastication with small pieces of the cookie appearing unchewed. Pt did demonstrated good oral and pharyngeal clearance of cookie, but would benefit from more thorough chewing. The pharyngeal phase is primarily marked by... -Mildly decreased airway closure during the swallow due to decreased laryngeal elevation. -Mildly decreased tongue base retraction and pharyngeal stripping wave with resulting trace-mild pharyngeal residues after the swallow. -No aspiration observed during the study. Frequent trace laryngeal penetration across thin and nectar thick liquid consistencies, which did appear to fully eject from the laryngeal vestibule after the swallow. The esophageal phase is primarily marked by... -Trace retrograde flow of moderately/honey thick liquids through UES. -Timely esophageal clearance of pudding. - Recommendations Diet: Regular Textures, Thin Liquids Compensatory Strategies: Small Bites - chew thoroughly, Small Sips, Slow Rate, Sitting upright Recommend Repeat Modified Barium Swallow: No Need for Skilled Speech Therapy Services: Yes Comment: Will recommend the patient for outpatient dysphagia therapy to address mild deficits in oropharyngeal swallow function. Will recommend the patient for oropharyngeal strengthening to improve laryngeal elevation, tongue base retraction, and pharyngeal contraction (CTAR, Lis, Yolande, effortful). The patient would benefit from thorough education regarding diet recommendations and recommended compensatory strategies. The patient reported she has also been referred to OP ST for cognitive evaluation. Education Completed: 1. Described result of evaluation., 7. Pt requires further education on strategies & risks. - Status Active ST Patient: Active - Contact Information [facility] Speech Therapy:: Carissa Aguilar M.A. [facility] Speech-Language Pathologist [facility] [address] [place] [address] [email or web address] [phone] 08/20/22 14:11 08/20/22 1431 <Electronically signed by Carissa Aguilar M.A. [facility]> Date/Time Carissa Aguilar M.A., [facility] Co-Signature Required for all Medicare patients Date/Time Co-Signature CC: ~ Electronically signed by Madhavi Coughlin M.S., [facility] on 08/30/22 10:54 Initialized on 12/29/22 10:54 - END OF NOTE [facility]'s Cognitive Exam - Attention: Ask: What is the: Day, Date, Month, Year, Season What is the score: 5 Which: Floor, Hospital, City, State, Country Which Score Maximum Score 5: 5 Three word recall document 1st trial: lemon, mariscal, ball What is the score: 3 Document number of trials: 2 Minus 7: 1st -7 (93), 4th -7 (72), 5th -7 (65) What is the Minus 7 score: 3 - Memory Three word recall Memory recall: lemon, ball What is the 3 word recall score: 2 - Fluency Total Responses: 8 Score: Letter - word recall: 4 Total Responses: 16 Total Responses Correct: 14 Score #: 0-7: 5 - Memory 2 Name & Address: Bernardino Flowers, , [place], [place], ID Score: Name & Address: 6 Prime/President: Current President, Current Hide And Skin Fleshing Machine Operator, President Assassinated in the Score: President/FLIGHT MANAGER/Governor: 3 - Language Patient able to peanut picker pencil & paper?: Yes Paper & Pen: Paper on pencil, pencil peanut picker only, Pencil pass Score: Paper & Pen: 3 2 Sentence: 2 sentences Score: 2 Sentence: 2 Subject repeat: Catepillar, Eccentricity, Unintelligible, Food Mixer Assembler Subject repeat: 4 repeated Score - Subject repeat: 2 All that glitters is not gold: Correct Score - All that glitters is not gold: 2 A stitch in time saves nine: Correct Score - A stitch in time saves nine: 1 Picture recall: 10 recalled Score - Picture recall: 10 Picture ID: Monarchy, Marsupial, Antarctic, Nautical Total # of Pictures ID (0-4): 4 Word Reading: Sew, Pint, Soot, Dough, Height Score - Word Readin - Visospatial Abilities Infinity Diagram Copy: Incorrect Score - Infinity Diagram Copy: 0 Wire cube copy correctly: Incorrect Score - Give 2 if copied or 0 if not copied: 0 Clock time: Clock three affiliated, Numbers Score - [place] =1, numbers = 2, hands = 2 total max 5: 3 Dot count: Four Score - Dot count: 4 Letter ID: K, M, A, T Score - Letter ID: 4 - Memory 3 Name & Address: Correct Score: Memory Name & Address: 7 Score: Name/Address Recall Help: 5 - Score Attention score /18: 16 Memory Score /26: 23 Fluency Score /14: 9 Language Score /26: 25 Visuospatial Score /16: 11 Total ELIZABETH-III Score /100: 84 Other - Other Cognition -: Pt with concern for cognition and return to prior to function. Pt living in [place] with sister and niece present as support but pt reporting difficulty with remembering items and tasks. Word finding difficulties, visuospatial, and fluency difficult during cognition testing. Dsyphagia -: PT with MBSS prior on 08/20/22. MBSS results attached with recommendations of regular/thin diet with oropharyngeal strengthening to improve laryngeal elevation. Plan - Plan Plan: Plan to recommend ST services to target dysphagia and oropharyngeal strengthening as well as cognition. - Recommendations Treatment Warranted: Yes Treatment Warranted: Dysphagia, Cognition - Progress Prognosis: Good - Frequency Frequency: 1x/Week Duration: 2 Months - Patient/Family Goal Patient/Family Goal: Pt wants to ensure safety during intake. Pt wants to improve her memory skills and return to prior level of function. - Goals that are Established Determination:: Goals will be added/modified as deemed necessary and appropriate. Therapy will be discontinued when results of re-evaluation indicate therapy is no longer needed or lack of progress has been documented. - Goal #1-5 Goal #1: Pt will complete oropharyngeal strengthening exercises x10 to increase swallow function and decrease risk of aspiration in 4/5 trials. Goal #2: Pt will verbalize compensatory strategies to improve swallow function (small bites, small sites, slowed rate of intake, hard swallow) with 90% accuracy, independently, in 4/5 trials. Goal #3: Pt will complete tasks for word fluency with 80% accuracy, independently, in 4/5 trials. Education - Patient has Indicated that the Following Identified Educational Needs: None The Patient has indicated that they have no educational or learning abilities that may effect their care.: Yes - Patient Instruction Patient Education: Diagnosis, Treatment Plan, Goals, Safety Precautions Person Taught: Patient Teaching Method: Discussion, Demonstration, Handout Response to teaching: Return demonstration, Verbalize understanding
--- NOTE | 2022-10-01 17:18 | HP.PTDCNRP_ITS ---
HALI BENJAMIN was seen in my office for initial evaluation on 06/07/22. The following Plan of Care was established for this patient: Patient has been on hold waiting to see the orthopaedic surgeon for her right hip- she has been independent on home exercises program of sitting and standing exercises as well as riding the Nustep for endurance. After gentle standing exercises patient was a 10/10 pain. PT and pt spoke on the phone and she will be discharged from PT at this time until after surgery. PT encouraged patient t o continue her NWB exercises as tolerated, and call surgeon if questions Initial Frequency: 2x /Week Initial Duration: 4 Weeks Patient/Client Instruction: Educate patient on: Benefits of Fitness Program Therapeutic Exercise to Include: Strength training, Endurance training, Balance training, Coordination, Agility training, Body mechanics, Postural training, Flexibilty training, Gait and locomotor training, Neuromotor development, Dynamic Lumbar Stabilization, Scapular Strength/Stabilization For the Purpose of:: To improve muscle performance and motor function This patient was last seen in our office . Pertinent comments regarding their Physical therapy will appear below: At this point I will be discontinuing this patient from physical therapy. I would be happy to see this patient again in the future if found appropriate by the physician. Thank you! Beckie Florentino, DOMONIQUET Balance/Gait/Functional tests - Balance/Special Test Scores Lower Extremity Functional Score: 0 TUG Test Time Seconds: 33 Tug Test: >30sec.=impaired mobility 30 Second Chair Rise Test Seconds: 4
== END 2022-10-01 19:00 | disposition home or self-care (01) ==
LOC: PT 14:30
PROVIDERS: PCP Internal Medicine; Referring Provider Student in an Organized Health Care Education/Training Program; Visit Provider Student in an Organized Health Care Education/Training Program
DX: R53.81 Other malaise (principal); R29.898 Other symptoms and signs involving the musculoskeletal system; R47.01 Aphasia
CPT/HCPCS: 92507; 92526; 92610; 97110; 97129; 97130; 97162; 97164; 97166; 97168; 97530

== ENCOUNTER 2023-03-06 20:59 | Emergency (ER) | payer MEDICARE, MEDICAID, SELFPAY ==
[2023-03-06 21:01] VITALS: BP 108/60; PULSE 61; RESP 18; TEMP 36.2; O2SAT 95; BMI 68.8
[2023-03-06 21:05] VITALS: BP 108/60; PULSE 72; RESP 18; O2SAT 95
--- NOTE | 2023-03-06 21:10 | ED.VIS.FALL ---
HPI HPI - Fall History of Present Illness Chief Complaint: Fall PFSH PFSH Medical History Arm weakness CAD (coronary artery disease) GERD (gastroesophageal reflux disease) Grand mal seizure Heart attack Heart failure History of back problems History of breast cancer History of cervical cancer History of COPD History of migraine History of seizures Hx of cardiac murmur Hx of chronic arthritis Hx of chronic bronchitis Hx of emotional problems Hx of hearing loss Hx of hypoglycemia Hx of seasonal allergies Leg weakness Major depressive disorder Paroxysmal SVT (supraventricular tachycardia) Posttraumatic stress disorder Stroke-like symptoms TBI (traumatic brain injury) TIA (transient ischemic attack) Vocal cord polyp Wears glasses Home Medications albuterol sulfate 90 mcg/actuation aerosol inhaler (Ventolin HFA) 90 mcg inhalation Q4H PRN PRN sob 05/25/22 [History Last Taken Unknown] omeprazole 40 mg capsule,delayed release 80 mg PO DAILY reflux 05/25/22 [History Last Taken 05/25/22] simvastatin 40 mg tablet 40 mg PO QHS cholesterol 05/25/22 [History Last Taken 05/24/22] aspirin 81 mg tablet,delayed release (Adult Low Dose Aspirin) 81 mg PO DAILY heart health 06/26/22 [History Last Taken Unknown] albuterol sulfate 90 mcg/actuation aerosol inhaler 1 inh inhalation Q4H PRN breathing 06/30/22 [History Last Taken Unknown] benzonatate 100 mg capsule 200 mg PO BID cough 06/30/22 [History Last Taken 06/30/22] diazepam 5 mg tablet 5 mg PO TID anxiety 06/30/22 [History Last Taken Unknown] handicap placard #1 ea 07/23/22 [Rx Last Taken Unknown] Saccharomyces boulardii 250 mg capsule (Digest Probiotic (S.boulardii)) 10,000 mmu cells PO DAILY #30 caps 07/31/22 [Rx Last Taken Unknown] methocarbamol 750 mg tablet 500 mg PO .QID pain 07/31/22 [History Last Taken Unknown] dicyclomine 20 mg tablet 20 mg PO BID #60 tabs 08/07/22 [Rx Last Taken Unknown] benzonatate 100 mg capsule 100 mg PO TID PRN cough #30 caps 08/16/22 [Rx Last Taken Unknown] miscellaneous medical supply #2 ea 08/16/22 [Rx Last Taken Unknown] diazepam 5 mg tablet 5 mg PO DAILY PRN anxiety #30 tabs 08/23/22 [Rx Last Taken Unknown] budesonide-formoterol HFA 160 mcg-4.5 mcg/actuation aerosol inhaler (Symbicort) 2 puff inhalation BID #3 device 08/30/22 [Rx Last Taken Unknown] guaifenesin 1,200 mg tablet, extended release 12 hr (Mucinex) 1,200 mg PO BID #180 tabs 08/30/22 [Rx Last Taken Unknown] trazodone 150 mg tablet See Rx Instructions .Route .COMPLEX #60 tabs 10/22/22 [Rx Last Taken Unknown] diclofenac sodium 75 mg tablet,delayed release 75 mg PO BID pain #60 tabs 02/12/23 [Rx Last Taken Unknown] aripiprazole 5 mg tablet 5 mg PO QHS mental health #30 tabs 02/18/23 [Rx Last Taken Unknown] doxepin 10 mg capsule 10 mg PO QHS sleep #30 caps 02/18/23 [Rx Last Taken Unknown] hydrocodone 10 mg-acetaminophen 325 mg tablet 1 tab PO Q6H 02/18/23 [History Last Taken Unknown] prazosin 1 mg capsule See Rx Instructions .Route .COMPLEX #60 caps 02/18/23 [Rx Last Taken Unknown] sertraline 50 mg tablet See Rx Instructions .Route .COMPLEX #90 tabs 02/18/23 [Rx Last Taken Unknown] sertraline 50 mg tablet 50 mg PO DAILY 14 days #14 tabs 02/27/23 [Rx Last Taken Unknown] cyclobenzaprine 10 mg tablet 20 mg PO .four times per day 02/28/23 [History Last Taken Unknown] Allergy/AdvReac Type Severity Reaction Status Date / Time divalproex sodium Allergy Angioedema Verified 02/28/23 13:26 [From Depakote] Influenza Virus Vaccines Allergy Angioedema Verified 02/28/23 13:26 [flu shot] phenytoin [From Dilantin] Allergy Hives Verified 02/28/23 13:26 propofol Allergy Angioedema Verified 02/28/23 13:26 Iodinated Contrast Media AdvReac Intermediate Angioedema Verified 02/28/23 13:26 Latex, Natural Rubber AdvReac Swelling Verified 02/28/23 13:26 meloxicam AdvReac Other Verified 02/28/23 13:26 oxybutynin [From Ditropan] AdvReac Swelling Verified 02/28/23 13:26 pravastatin AdvReac Swelling Verified 02/28/23 13:26 tetracycline AdvReac Itching Verified 02/28/23 13:26 tramadol AdvReac Other Verified 02/28/23 13:26 Family History Other Adopted Surgical History History of total right hip replacement Hx of cholecystectomy S/P ALLAN (total abdominal hysterectomy) Social History household members: other details: Living with her keya. 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 Smoking Status: Never smoker Electronic Cigarette Use: not used alcohol intake: never substance use type: does not use caffeine: Yes Type: coffee Number of servings: 1 do you feel safe at home: Yes EXAM Physical Exam Const Vital Signs: 03/06/23 21:01 03/06/23 21:05 03/06/23 21:06 Temperature 97.1 F L Temperature Source Oral Pulse Rate 61 72 Respiratory Rate 18 18 Respiratory Effort Normal Respiratory Depth Normal Respiratory Pattern Normal Blood Pressure 108/60 108/60 Blood Pressure Mean 76 76 Pulse Ox 95 95 Oxygen Delivery Method Room Air Room Air Room Air MDM MDM MDM Narrative Medical decision making narrative: HISTORY OF PRESENT ILLNESS: 67-year-old female presents after mechanical fall from standing in which she injured her chin. She denies loss of consciousness. Denies taking blood thinners. She also endorses lower back pain, right hip pain and left knee pain. She notes history of recent right hip replacement in October. Notes last tetanus was in October 2022 REVIEW OF SYSTEMS: Pertinent positives: Head trauma, laceration, right hip pain, left knee pain Pertinent negatives: Loss of consciousness, PHYSICAL EXAM: Nursing triage notes reviewed, Vital signs reviewed Primary Survey Airway: Intact Breathing: Bilateral breath sounds Circulation: Palpable bilateral femorals, Palpable bilateral radial, Palpable bilateral DP and Palpable bilateral PT Disability / Spine precautions GCS Score: Eye Openin Verbal Response: 5 Motor Response: 6 Secondary Survey Constitutional: Please see MDM Head: Superficial linear approximate 1 cm laceration to the undersurface of the chin, Midface stable, NO jaw malocclusion, No Cephalohematoma, and No Lacerations noted Eye: Pupils equal round and reactive to light, Extraocular muscles intact and No periorbital ecchymosis or stepoff, no evidence of entrapment ENT: Oropharynx clear, no lacerations, no hemotympanum, no raccoon eyes or baldwin sign Cervical spine / Neck: No cervical spine bony tenderness, crepitance, or stepoff deformity Trachea midline Lungs: Clear to auscultation, No asymmetric rise and No crepitus, no flail chest Cardiac: Regular rate and rhythm and No murmurs Abdomen: Soft, Nontender and No rebound Pelvis: Pelvis stable to compression : No evidence of genital injury Back: No midline bony tenderness to thoracic/lumbar/sacral spines Neuro: At baseline, intact strength and sensation in bilateral upper and lower extremities. 2+ patellar reflexes bilaterally. Extremities: NO gross Deformities, no leg length discrepancies, intact quadricep tendon function bilaterally Psych: Normal affect Nursing triage notes reviewed, Vital signs reviewed MEDICAL DECISION MAKING: Chief Complaint: Fall, head trauma, back pain, right hip pain, left knee pain External records reviewed: CT of the L-spine in 2021 shows multiple level degenerative changes Factors affecting care: No blood thinner ALL IMAGES (IF OBTAINED) HAVE BEEN PERSONALLY REVIEWED AND INTERPRETED BY MYSELF. MDM Narrative: Patient was hemodynamically stable, afebrile, nontoxic-appearing. Primary secondary trauma surveys concerning for intracranial normality, lumbar spine abnormality, right hip abnormality left knee abnormality. I obtained a broad imaging work-up to further elucidate the etiology patient complaints. I gave Percocet for pain control. Images were unremarkable for acute traumatic injury. The patient suffered lacerations to the chin There is no evidence to suggest foreign bodies were history and exam. Visual and tactile exams are unremarkable. There was no evidence of neurovascular injury. Patient had a normal distal vascular exam, and had full normal motor and sensory exams. There was also no evidence of tendon injury, with normal distal full range of motion, flexion, extension, abduction, abduction. There is no evidence of local joint space involvement at this time patient was irrigated with copious sterile normal saline and primary. Performed please see procedure note. The patient was given signs and symptoms warnings for infection, such as increasing pain, redness, swelling, associated heat, pus or fever. Patient was given instructions for timely follow-up. Patient agreed with the plan of care Procedure: Laceration repair. The procedure was performed by myself. Indication: Wound repair Risks and benefits: risks, benefits and alternatives were discussed Consent: Consent was obtained. Wound Details: 0.5 cm linear laceration to the undersurface of the chin, bleeding controlled, superficial in depth proxy 1 mm Anesthesia: None Wound prep: Patient was prepped and draped in the usual sterile fashion. Tetanus: Irrigation Solution: Saline Wound Preparation: Chlorhexidine The wound was explored to its base in a bloodless field. Procedure Description: Applied Dermabond and Steri-Strips Patient tolerated the procedure well with no immediate complications The patient and/or family, caregivers express understanding. The patient and/or family, caregivers agrees with the plan. Total critical care time today provided was at least 0 minutes. This excludes separately billable procedures. Critical care time (if documented) is secondary to the patient having high probability of clinically significant/life threatening deterioration in the patient's condition which required my urgent intervention. Shared decision making: I will have a discussion with the patient and or visitors regarding risk/benefits of further testing or admission. They will be made aware of of the risk/benefits inherent in this decision they will be given the opportunity to voice understanding. Radiography Diagnostic Testing: Clinical Impression(s) from Imaging Studies Brain CT 03/06/23 21:26 IMPRESSION: Normal unenhanced CT scan of the brain. Electronically Signed: Linwood Smiley MD at 22:06 EDT Reading Location ID and State: [id number] / [employer] Tel , Service support , Lumbar Spine CT 03/06/23 21:27 IMPRESSION: No acute fracture or subluxation. Moderate dextroscoliosis and degenerative disc disease similar to the prior study. Electronically Signed: Linwood Smiley MD at 22:17 EDT , Hip/Pelvis X-Ray 03/06/23 21:50 IMPRESSION: Normal x-ray examination of the pelvis and hip after arthroplasty. Electronically Signed: Linwood Smiley MD at 22:25 EDT , Knee X-Ray 03/06/23 21:50 IMPRESSION: No acute fracture or dislocation. Electronically Signed: Linwood Smiley MD at 22:23 EDT , Discharge Plan Triage Chief Complaint: Fall ED Provider: Trung Amaral Dx/Rx/DC Orders Prescriptions: No Action aspirin [Adult Low Dose Aspirin] 81 mg tablet,delayed release (DR/EC) 81 mg PO DAILY (DME) handicap placard See Rx Instructions .ROUTE .MEDSUPPLY Qty: 1 0RF Rx Instructions: Length of time: 3 years diazepam 5 mg tablet 5 mg PO DAILY PRN (Reason: anxiety) Qty: 30 0RF budesonide-formoterol [Symbicort] 160-4.5 mcg/actuation HFA aerosol inhaler 2 puff inhalation BID Qty: 3 3RF Mucinex 1,200 mg tablet extended release 12hr 1,200 mg PO BID Qty: 180 3RF Saccharomyces boulardii [Digest Probiotic (S.boulardii)] 250 mg capsule 10,000 mmu cells PO DAILY Qty: 30 0RF benzonatate 100 mg capsule 100 mg PO TID PRN (Reason: cough) Qty: 30 0RF (DME) miscellaneous medical supply Misc See Rx Instructions .Route Qty: 2 0RF Rx Instructions: As directed trazodone 150 mg tablet See Rx Instructions .ROUTE .COMPLEX Qty: 60 1RF Dose Instruction: TAKE 2 TABLETS AT BEDTIME FOR SLEEP Rx Instructions: TAKE 2 TABLETS AT BEDTIME FOR SLEEP cyclobenzaprine 10 mg tablet 20 mg PO .four times per day hydrocodone-acetaminophen 10-325 mg tablet 1 tab PO Q6H Patient Comments: TAKE 1 TABLET BY MOUTHNFOUR TIMES A DAY NEEDEDA aripiprazole 5 mg tablet 5 mg PO QHS Qty: 30 2RF doxepin 10 mg capsule 10 mg PO QHS Qty: 30 1RF prazosin 1 mg capsule See Rx Instructions .ROUTE .COMPLEX Qty: 60 2RF Dose Instruction: TAKE 1 CAPSULE AT BEDTIME Rx Instructions: TAKE 1 CAPSULE AT BEDTIME sertraline 50 mg tablet See Rx Instructions .ROUTE .COMPLEX Qty: 90 0RF Dose Instruction: TAKE 1 TABLET EVERY DAY Rx Instructions: TAKE 1 TABLET EVERY DAY omeprazole 40 mg Capsule,Delayed Release(Dr/Ec) 80 mg PO DAILY simvastatin 40 mg Tablet 40 mg PO QHS albuterol sulfate [Ventolin HFA] 90 mcg/actuation Hfa Aerosol Inhaler 90 mcg INHALATION Q4H PRN PRN (Reason: sob) methocarbamol 750 mg tablet 500 mg PO .QID benzonatate 100 mg Capsule 200 mg PO BID albuterol sulfate 90 mcg/actuation HFA aerosol inhaler 1 inh INHALATION Q4H PRN (Reason: breathing) diazepam 5 mg tablet 5 mg PO TID dicyclomine 20 mg tablet 20 mg PO BID Qty: 60 0RF diclofenac sodium 75 mg tablet,delayed release (DR/EC) 75 mg PO BID Qty: 60 0RF sertraline 50 mg tablet 50 mg PO DAILY 14 Days Qty: 14 0RF Primary Care Provider: Jenae Deng Referrals: Jenae Deng MD [Primary Care Provider] - Activity Restrictions/Additional Instructions: Thank you for trusting us with your care today! Please take Tylenol (2 pills, 650 mg), ibuprofen (2 pills, 400 mg) every 6 hours as needed for pain and fever control. Please return to the emergency department if your symptoms change or worsen. Specifically if cannot tolerate food or medicine by mouth. If develop worsening headache, loss of vision, loss of movement or sensation in your extremities. Please assess your wound daily. If you develop redness, white-yellow discharge, increasing pain, increasing swelling it may be infected. Please return to ED immediately if you notice these signs. Please keep your wound covered. Please keep your wound clean dry. Please change dressings daily. Please follow with your primary care physician for further outpatient evaluation and management. Disposition Disposition: Home, Self Care
--- NOTE | 2023-03-06 21:26 | CT_ITS ---
STUDY: CT BRAIN WITHOUT CONTRAST REASON FOR EXAM: Female, 67 years old. HEAD TRAUMA RADIATION DOSAGE (If Supplied By Facility): CTDIvol = ( 44.99 ) mGy, DLP = ( 812.98 ) mGycm TECHNIQUE: Transaxial CT imaging of the brain was performed without administration of intravenous contrast material. Individualized dose optimization techniques were used for this CT. COMPARISON: 08/14/2022 FINDINGS: Normal soft tissue structures. Normal calvarium. Normal size ventricles and extra-axial spaces for the patient''s age. Normal white matter tracts of the cerebral hemispheres. Normal basal ganglia and thalami. Normal brainstem. Normal cerebellum. There is no intracranial hemorrhage. There are no findings of an acute ischemic infarction. Mucous retention cyst in left maxillary sinus consistent with chronic sinusitis. CT/Brain/Head without Contrast IMPRESSION: Normal unenhanced CT scan of the brain. Electronically Signed: Linwood Smiley MD at 22:06 EDT ,
--- NOTE | 2023-03-06 21:27 | CT_ITS ---
STUDY: CT LUMBAR SPINE WITHOUT CONTRAST REASON FOR EXAM: Female, 67 years old. BACK PAIN RADIATION DOSAGE (If Supplied By Facility): CTDIvol = ( 17.01 ) mGy, DLP = ( 545.37 ) mGycm TECHNIQUE: The patient was scanned in a multi detector CT scanner. High resolution transaxial imaging was performed. Images were obtained from T12 to S1. Sagittal and coronal images were reconstructed. Individualized dose optimization techniques were used for this CT. COMPARISON: 08/14/2022 FINDINGS: Normal lumbar lordosis. Moderate dextroscoliosis centered at L3. Normal vertebrae of the lumbar spine. L1-2: Loss of disc height with vacuum discs but no disc protrusion, spinal stenosis, or neural foraminal stenosis. L2-3: No change in the mild bilobed disc osteophyte complex with vacuum disc formation which produces mild spinal stenosis and moderate left neural foraminal stenosis. L3-4: Mild bilateral facet hypertrophy and moderate ligament flavum hypertrophy. No change in the mild bilobed disc osteophyte complex with vacuum disc formation which produces mild spinal stenosis, mild right neural foraminal stenosis and moderate left neural foraminal stenosis. L4-5: Mild bilateral facet hypertrophy and ligament flavum hypertrophy. No change in mild broad disc protrusion with vacuum disc formation which produces mild spinal stenosis and mild bilateral neural foraminal stenosis. L5-S1: Mild bilateral facet hypertrophy and ligament flavum hypertrophy. No change in the mild broad disc protrusion which produces mild spinal stenosis and moderate bilateral neural foraminal stenosis. Normal visualized paraspinous soft tissue structures. CT/Spine Lumbar without Contrast IMPRESSION: No acute fracture or subluxation. Moderate dextroscoliosis and degenerative disc disease similar to the prior study. Electronically Signed: Linwood Smiley MD at 22:17 EDT ,
[2023-03-06] MEDS: Oxycodone/Apap 5/325 Tablet PO (21:34)
--- NOTE | 2023-03-06 21:50 | RAD_ITS ---
STUDY: X-RAY - LEFT KNEE REASON FOR EXAM: Female, 67 years old. left knee pain TECHNIQUE: 2 view(s) of the knee. COMPARISON: None. FINDINGS: Normal visualized distal femur. Normal visualized proximal tibia and fibula. Normal proximal tibiofibular articulation. There is mild degenerative arthrosis of the medial femorotibial compartment. There is mild degenerative arthrosis of the lateral femorotibial compartment. Normal patellofemoral articulation. The soft tissue structures are unremarkable. RAD/Knee 1 or 2 Views IMPRESSION: No acute fracture or dislocation. Electronically Signed: Linwood Smiley MD at 22:23 EDT ,
--- NOTE | 2023-03-06 21:50 | RAD_ITS ---
STUDY: X-RAY - PELVIS AND RIGHT HIP REASON FOR EXAM: Female, 67 years old. right hip pain after fall TECHNIQUE: 2 views of the pelvis and hip. COMPARISON: 08/14/2022 FINDINGS: There is a non-specific bowel gas pattern. Normal visualized soft tissue structures. Normal bilateral iliac wings, sacroiliac joints and visualized sacrum. Normal bilateral superior and inferior pubic rami. Normal pubic symphysis. Normal bilateral ischial tuberosities. Status post right hip arthroplasty. The prosthesis appears located. No ostial lysis to suggest loosening.. RAD/HIP, UNI W/ Pelvis 2-3 Views IMPRESSION: Normal x-ray examination of the pelvis and hip after arthroplasty. Electronically Signed: Linwood Smiley MD at 22:25 EDT ,
--- NOTE | 2023-03-06 23:01 | ED.RN ---
IV removed intact, no bleeding. Patient verbalized understanding. Ambulatory from dept., home with mother.
== END 2023-03-06 23:03 | disposition home or self-care (01) ==
PROVIDERS: Emergency Provider Emergency Medicine; PCP Internal Medicine; Visit Provider Emergency Medicine
DX: S01.81XA Laceration without foreign body of other part of head, initial encounter (principal); I50.9 Heart failure, unspecified; I25.10 Atherosclerotic heart disease of native coronary artery without angina pectoris; Z86.73 Personal history of transient ischemic attack (TIA), and cerebral infarction without residual deficits; W19.XXXA Unspecified fall, initial encounter
CPT/HCPCS: 12011; 70450; 72131; 73502; 73560; 99282

== ENCOUNTER 2023-04-09 11:30 | Outpatient (RCR) | payer MEDICARE, MEDICAID, SELFPAY ==
--- NOTE | 2022-11-22 18:47 | HP.SP.EVAL ---
Visit History - Visit Info Date of Eval: 11/22/22 Visit: 1 Wheel Press Clerk: JEAN - History Attending Doctor: OMERO Referring Doctor: OMERO Reason for Referral: R THR/RX HERE POOR SHORT TERM MEMORY. RX HERE Previous speech therapy: Yes Other Relevant Medical History/Diagnoses/Surgery: Lea is a 72 year old woman who was seen at [facility] for a speech, language and cognitive evaluation. 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 Pt received speech therapy for memory and cognition prior to a hip surgery, which she received 3 weeks ago. Pt is moving in with her sister during her recovery and previously lived alone. Smoking Status: Never smoker - Diagnosis Diagnosis: cognitive communication disorder - Pain Is pain an issue with your current prescribed condition?: No - Personal Preferred language: Singaporean History - History Date of Eval: 11/22/22 Previous speech therapy: Yes Other Relevant Medical History/Diagnoses/Surgery: Lea is a 72 year old woman who was seen at [facility] for a speech, language and cognitive evaluation. 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 Pt received speech therapy for memory and cognition prior to a hip surgery, which she received 3 weeks ago. Pt is moving in with her sister during her recovery and previously lived alone. Smoking Status: Never smoker Hx Smoking: No Hx Tobacco Use: No - Pain Is pain an issue with your current prescribed condition?: No Patient Allergies - Allergies Allergies divalproex sodium [From Depakote] Allergy (Verified 10/22/22 11:10) Angioedema Influenza Virus Vaccines [flu shot] Allergy (Verified 10/22/22 11:10) Angioedema hives phenytoin [From Dilantin] Allergy (Verified 10/22/22 11:10) Hives throat swells propofol Allergy (Verified 10/22/22 11:10) Angioedema Iodinated Contrast Media Adverse Reaction (Intermediate, Verified 10/22/22 11:10) Angioedema Latex, Natural Rubber Adverse Reaction (Verified 10/22/22 11:10) Swelling meloxicam Adverse Reaction (Verified 10/22/22 11:10) Other makes me feel loopy oxybutynin [From Ditropan] Adverse Reaction (Verified 10/22/22 11:10) Swelling itching pravastatin Adverse Reaction (Verified 10/22/22 11:10) Swelling tetracycline Adverse Reaction (Verified 10/22/22 11:10) Itching tramadol Adverse Reaction (Verified 10/22/22 11:10) Other just doesnt work Objective Cog/Ling/Com - Orientation Orientation: Person, Place, Date, Day, Birthdate, Medical Diagnosis - Naming [place]: Mild Abstract: Moderate - Recall Percent recall of conversational details: Pt did not remember meeting ST 3 months ago despite max cues Comments: Delayed recall of 3 words: 3/3, 3/3, 2/3. - Medication Reading a medication label: Severe Correctly stating instructions of medications: Severe Completing medications independently: Severe - Problem Solving Simple: WNL Complex: Moderate - Judgement & Reasoning Judgement/Reasoning: Mild - Cognitive Linguistic Supervision/Saftey Awareness of deficits: Mild Being left home alone: WFL Managing medications: Moderate, Severe Managing finances: Moderate - Executive Function Comments Comments: Pt unable to complete complex executive function tasks required to complete ADLs and complex alternating attention + reasoning tasks. Cognitive Linguistic Comments - Comments Concerns Pt is concerned about her ability to continue to live alone and complete tasks of daily living with her current memory and executive functioning problems. Pt is currently unable to manage her finances, paying bills on time, independently grocery shop, manage scheduling & attending medical appointments, using her phone and using her computer, per pt report. Pt demonstrated difficulty with memory, medication management and other complex executive functioning tasks during the session. CLQT - CLQT CLQT Administered: Yes CLQT: Cognitive Linguistic Quick Test (CLQT) is a criterion - referenced assessment designed for adults between the ages of 18 and 89 with known or suspected neurological dysfuntions. The CLQT is to assess strength and weaknesses in five cognitive domains. Severity ratings are within normal limits, mild, moderate, severe deficits. The subtests are as follows: Date: 11/22/22 - Attention Attention: WNL - Memory Memory: WNL, Mild - Executive Functions Executive Functions: Mild, Moderate - Language Language: WNL - Visuospatial Skills Visuospatial Skills: WNL, Mild - Composite Severity Rating Composite Severity Rating: WNL, Mild - Clock Drawing Severity Rating Clock Drawing Severity Rating: WNL - CLQT Comments Pt stated that she is actually 72 instead of 67 due to an error on her adoption certificate. No record found in prior ST report, so her report was scored on both scales (<69, >70) see above Plan - Plan Plan: Will recommend Pt for weekly outpatient speech therapy to address min-severe cognitive impairment characterized by deficits in long and short-term memory, executive functioning, alternating attention, medication management and abstract divergent naming. Pt would benefit from training in compensatory strategies to aid her memory, as well as cognitive training to improve cognitive functioning. Without treatment, Pt will be at risk to struggle to complete tasks of daily living and be unable to return to independent living. - Recommendations MBS: No Treatment Warranted: Yes Treatment Warranted: Cognition - Progress Prognosis: Good - Frequency Frequency: 2x /Week Duration: 6 Months - Goals that are Established Determination:: Goals will be added/modified as deemed necessary and appropriate. Therapy will be discontinued when results of re-evaluation indicate therapy is no longer needed or lack of progress has been documented. - Goal #1-5 Goal #1: Pt will complete basic to mod complex sustained, alternating, divided attention tasks with 90% acc independently across ? measured opportunities Goal #2: Pt will modify environment at home via implementing memory compensatory strategies within 4 weeks' time of their initial evaluation as measured by scores of 3 on a self report checklist during 2/3 sessions. Goal #3: Pt will complete basic to mod complex immediate, short-term, and working memory tasks with 90% acc independently across 3/4 measured opportunities. Goal #4: Pt independently will complete complex problem solving, reasoning, and executive function tasks including but not limited to functional ADL (i.e. managing finances, safety awareness, paying bills, medication management, meal planning, using cellphone) with 90% acc during 2/3 sessions. Goal #5: Pt will name 8-10 items in an abstract category to increase thought flexibility during 2/3 sessions. . - Goal #6-10 Goal #6: Pt will participate in an ongoing cognitive assessment to determine goals, progress and current skill level. Education - Patient has Indicated that the Following Identified Educational Needs: None The Patient has indicated that they have no educational or learning abilities that may effect their care.: Yes - Patient Instruction Patient Education: Diagnosis, Treatment Plan, Goals Person Taught: Patient Teaching Method: Discussion, Demonstration Response to teaching: Verbalize understanding
--- NOTE | 2022-11-28 12:04 | HP.PTEVAL ---
Patient's Visit Information HALI BENJAMIN is a 67 year old F referred to Physical Therapy by Ariel Hua PA-C with a diagnosis of R MARILUZ 10/30/22. Date of Evaluation: 11/28/22 Physical Therapist: Fidencio Shaw PT, ATC - Visit Plan Frequency: 2-3x /Week Duration: 4-6 Weeks Plan: L hip strengthening, balance and proprio, gait training, core strengthening, nustep, and HEP - Subjective DOS: 10/30/22. Pt had a revisional R MARILUZ performed at that time. Pt reports she had a R MARILUZ performed in 2017 which became loose on her and started to fall apart. Pt reports she feels like she is healing well at this time. Pt notes she still has sleep difficulty at this time secondary to pain. Pt reports she has tingling and numbness in R thigh that is new since the surgery. No other tingling or numbness at this time. Pt only has one step into her house which she is able to negotiate one step at at time. Pt currently ambulates with a rollator, but would like to be able to transition back to a cane as soon as she is steady. 7/10 pain at this time, but notes it increases to 9/10 (with prolonged weight bearing activity) - Pain R hip Pain Intensity (Out of 10): 6 Pain Intensity Range: 9 - Objective Neuro: B LE sensation is WNL to light touch. B patellar reflex= 2/3. ROM: R hip flex= 40, ext= 0 ; L hip flex= 90, ext=0. MMT: R hip flex= 14, ext= 9 #F; L hip flex= 27, ext= 18 #F. Gait: Pt is able to ambulate 680 feet with rollator until needing to rest. Obvious trendelenburg gait today indicating core weakness - Balance/Special Test Scores Lower Extremity Functional Score: 19 - Goals Goal 1:: Decrease R hip pain x 50% to aid with sleep Goal Time Frame: 4-6 Weeks Goal 2:: Pt will be able to ambulate greater than 1000 feet with no AD to aid with community ambulation Goal Time Frame: 4-6 Weeks Goal 3:: Increase R hip strength x 5-10 #F to aid with return to working out without limitations Goal Time Frame: 4-6 Weeks Goal 4:: I with HEP Goal Time Frame: 4-6 Weeks - Rehabilitation Potential Physical Therapy Diagnosis: Pt has R hip pain, weakness, and limited gait tolerance secondary to R MARILUZ Rehabilitation Potential: Good - Anticipated Interventions Patient/Client Instruction: Educate patient on: Condition, Plan of Care For the Purpose of:: To improve self management Therapeutic Exercise to Include: Strength training, Endurance training, Balance training, Flexibilty training, Gait and locomotor training, Dynamic Lumbar Stabilization For the Purpose of:: To decrease pain, To increase ROM, To improve muscle performance and motor function Thank you for the opportunity to evaluate your patient. For Medicare and Medicare HMO plans, please review the plan of care and approve it. It will need to be FAXED BACK to us at [phone] for Medicare purposes. For Medicare only, by signing this I certify the plan of care. Please let me know if there are questions or concerns regarding this plan of care. Physician Signature: Date:
--- NOTE | 2023-02-04 13:05 | HP.PTREVAL ---
Ariel Hua PA-C, It has been my pleasure to treat HALI BENJAMIN over the last 21 visits for R MARILUZ 10/30/22. Please see the progress note below for an update on the physical therapy plan of care! Subjective: Pt reports her doctor is pleased with her progress, but he wants her to continue with strengthening at this time Objective/Function: R hip pain 3/10, increases to 6/10 at worst. R hip strength: flex= 9, ext= 20 #F. pt is able to ambulate 340 feet with rollator until having to sit down. Pt is progressing well at this time but would benefit from further strengthening to aid with home and community mobility Plan Plan: Attempt to get more PT visits approved at this time to focus on core and R LE strengthening Balance/Gait/Functional tests - Balance/Special Test Scores Lower Extremity Functional Score: 11 Goals Goal 1:: Decrease R hip pain x 50% to aid with sleep Goal Time Frame: 4-6 Weeks Goal Progress: Progressing Goal 2:: Pt will be able to ambulate greater than 1000 feet with no AD to aid with community ambulation Goal Time Frame: 4-6 Weeks Goal Progress: Progressing Goal 3:: Increase R hip strength x 5-10 #F to aid with return to working out without limitations Goal Time Frame: 4-6 Weeks Goal Progress: Progressing Goal 4:: I with HEP Goal Time Frame: 4-6 Weeks Goal Progress: Progressing Anticipated Interventions Patient/Client Instruction: Educate patient on: Condition, Plan of Care For the Purpose of:: To improve self management Therapeutic Exercise to Include: Strength training, Endurance training, Balance training, Flexibilty training, Gait and locomotor training, Dynamic Lumbar Stabilization For the Purpose of:: To decrease pain, To increase ROM, To improve muscle performance and motor function Please do not hesitate to contact me at [phone] by phone or if you have questions or concerns regarding this new plan of care! Sincerely, Fidencio Shaw, PT, ATC
--- NOTE | 2023-03-22 12:15 | HP.SP.REEV ---
History History Date of Eval: 11/22/22 Attending Doctor: OMERO Referring Doctor: OMERO Reason for Referral: R THR/RX HERE POOR SHORT TERM MEMORY. RX HERE Previous speech therapy: Yes Other Relevant Medical History/Diagnoses/Surgery: Lea is a 72 year old woman who was seen at [facility] for a speech, language and cognitive evaluation. 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 Pt received speech therapy for memory and cognition prior to a hip surgery, which she received 3 weeks ago. Pt is moving in with her sister during her recovery and previously lived alone. Smoking Status: Never smoker Hx Smoking: No Hx Tobacco Use: No Pain Is pain an issue with your current prescribed condition?: No Personal Preferred language: Macedonian Patient Allergies Allergies Allergies: Allergies divalproex sodium [From Depakote] Allergy (Verified 02/28/23 13:26) Angioedema Influenza Virus Vaccines [flu shot] Allergy (Verified 02/28/23 13:26) Angioedema hives phenytoin [From Dilantin] Allergy (Verified 02/28/23 13:26) Hives throat swells propofol Allergy (Verified 02/28/23 13:26) Angioedema Iodinated Contrast Media Adverse Reaction (Intermediate, Verified 02/28/23 13:26) Angioedema Latex, Natural Rubber Adverse Reaction (Verified 02/28/23 13:26) Swelling meloxicam Adverse Reaction (Verified 02/28/23 13:26) Other makes me feel loopy oxybutynin [From Ditropan] Adverse Reaction (Verified 02/28/23 13:26) Swelling itching pravastatin Adverse Reaction (Verified 02/28/23 13:26) Swelling tetracycline Adverse Reaction (Verified 02/28/23 13:26) Itching tramadol Adverse Reaction (Verified 02/28/23 13:26) Other just doesnt work Previous/Current Goals Goals 1-5 Previous Goal #1: Pt will complete basic to mod complex sustained, alternating, divided attention tasks with 90% acc independently across ? measured opportunities Goal 1 Status: Goal Progressing: Pt completed a sudoku with mod to max cues. Pt required less cues at the game went on but needed reminder to show down to assess all options. Previous Goal #2: Pt will modify environment at home via implementing memory compensatory strategies within 4 weeks' time of their initial evaluation as measured by scores of 3 on a self report checklist during 2/3 sessions. Goal 2 Status: Goal Progressing: Pt stated she had difficulty stating her address at the pharmacy. Pt was able to state it today with no issues. Provided education on using phone maps & pt was able to I pull up maps and select that home button we added in a previous session, Pt added emergency contacts and set up her medical ID on her phone with mod cues from ST. Direct education provided on purpose for activating these settings and what situations this would be useful for. Previous Goal #3: Pt will complete basic to mod complex immediate, short-term, and working memory tasks with 90% acc independently across 3/4 measured opportunities. Goal 3 Status: Goal Progressing: Memory and mental manipulation, 3 words reversed; 90% acc I, increased to 100% acc with cues & 1 repetition. Shape recall boxes: 0/4 I, provided cues for correction. Words recall boxes: 0/4 I, provided cues for correction Previous Goal #4: Pt independently will complete complex problem solving, reasoning, and executive function tasks including but not limited to functional ADL (i.e. managing finances, safety awareness, paying bills, medication management, meal planning, using cellphone) with 90% acc during 2/3 sessions. Goal 4 Status: Goal Partially Met (09/04): Pt I identified 10/10 errors with medication Previous Goal #5: Pt will name 8-10 items in an abstract category to increase thought flexibility during 2/3 sessions. . Goal 5 Status: Goal Met: Pt tasked with naming 10 items in an abstract category trial 1: things that use electricity : 10/10 I, trial 2: things that are yellow: 10/10 I Trial 3, things with wheels: 10/10 I Goals 6-10 Previous Goal #6: Pt will participate in an ongoing cognitive assessment to determine goals, progress and current skill level. Goal 6 Status: Goal ongoing * Pediatric & Adult patients Adult Objective Cog/Ling/Com Orientation Orientation: Person, Place, Date, Day, Birthdate and Medical Diagnosis Naming [place]: Mild Abstract: Moderate Recall Percent recall of conversational details: Pt did not remember meeting ST 3 months ago despite max cues Comments: Delayed recall of 3 words: 3/3, 3/3, 2/3. Medication Reading a medication label: Severe Correctly stating instructions of medications: Severe Completing medications independently: Severe Problem Solving Simple: WNL Complex: Moderate Judgement & Reasoning Judgement/Reasoning: Mild Cognitive Linguistic Supervision/Saftey Awareness of deficits: Mild Being left home alone: WFL Managing medications: Moderate and Severe Managing finances: Moderate Executive Function Comments Comments: Pt unable to complete complex executive function tasks required to complete ADLs and complex alternating attention + reasoning tasks. Cognitive Linguistic Comments Comments Concerns: -: Pt is concerned about her ability to continue to live alone and complete tasks of daily living with her current memory and executive functioning problems. Pt is currently unable to manage her finances, paying bills on time, independently grocery shop, manage scheduling & attending medical appointments, using her phone and using her computer, per pt report. Pt demonstrated difficulty with memory, medication management and other complex executive functioning tasks during the session. CLQT CLQT CLQT Administered: Yes CLQT: Cognitive Linguistic Quick Test (CLQT) is a criterion - referenced assessment designed for adults between the ages of 18 and 89 with known or suspected neurological dysfuntions. The CLQT is to assess strength and weaknesses in five cognitive domains. Severity ratings are within normal limits, mild, moderate, severe deficits. The subtests are as follows: Date: 11/22/22 Attention Attention: WNL Memory Memory: WNL and Mild Executive Functions Executive Functions: Mild and Moderate Language Language: WNL Visuospatial Skills Visuospatial Skills: WNL and Mild Composite Severity Rating Composite Severity Rating: WNL and Mild Clock Drawing Severity Rating Clock Drawing Severity Rating: WNL CLQT Comments Pt stated that she is actually 72 instead of 67 due to an error on her adoption certificate. No record found in prior ST report, so her report was scored on both scales (<69, >70): -: see above Reference: Neuro-QoL instrument Radiation Oncology Patient Plan Plan Plan: Will recommend Pt for continued weekly outpatient speech therapy to address min-severe cognitive impairment characterized by deficits in long and short-term memory, executive functioning, alternating attention, medication management and abstract thinking. Pt would benefit from training in compensatory strategies to aid her memory, as well as cognitive training to improve cognitive functioning. Without treatment, Pt will be at risk to struggle to complete tasks of daily living and be unable to return to independent living. Recommendations MBS: No Treatment Warranted: Yes Treatment Warranted: Cognition Progress Prognosis: Excellent Frequency Frequency: 1x/Week Duration: 2-4 Months Goals that are Established Determination:: Goals will be added/modified as deemed necessary and appropriate. Therapy will be discontinued when results of re-evaluation indicate therapy is no longer needed or lack of progress has been documented. Goal #1-5 Goal #1: Pt will complete basic to mod complex sustained, alternating, divided attention tasks with 90% acc independently across 3 measured opportunities Goal #2: Pt will complete verbal monologue tasks including but not limited to stating pros/cons, verbal reasoning, problem solving, requesting help, explaining directions, storytelling/retelling with no more than min cues during 2/3 trials across 3 sessions. Goal #3: Pt will complete basic to mod complex immediate, short-term, and working memory tasks with 90% acc independently across 3 measured opportunities. Goal #4: Pt independently will complete complex problem solving, reasoning, and executive function tasks including but not limited to functional ADL (i.e. managing finances, safety awareness, paying bills, medication management, meal planning, using cellphone) with 90% acc during 2/3 sessions. Goal #5: Pt will name 8-10 items in an abstract category to increase thought flexibility during 2/3 sessions. . Goal #6-10 Goal #6: Pt will participate in an ongoing cognitive assessment to determine goals, progress and current skill level. Education Patient has Indicated that the Following Identified Educational Needs: None The Patient has indicated that they have no educational or learning abilities that may effect their care.: Yes Patient Instruction Patient Education: Diagnosis, Treatment Plan and Goals Person Taught: Patient Teaching Method: Discussion and Demonstration Response to teaching: Verbalize understanding
== END 2023-04-09 19:00 | disposition home or self-care (01) ==
LOC: PT 11:30
PROVIDERS: PCP Internal Medicine; Referring Provider Physician Assistant Surgical; Visit Provider Physician Assistant Surgical
DX: R41.3 Other amnesia; Z86.73 Personal history of transient ischemic attack (TIA), and cerebral infarction without residual deficits; T84.030D Mechanical loosening of internal right hip prosthetic joint, subsequent encounter; Z96.641 Presence of right artificial hip joint
CPT/HCPCS: 92507; 97014; 97110; 97129; 97130; 97161; G0283

== ENCOUNTER 2023-07-09 13:49 | Observation (INO) | payer MEDICARE, MEDICAID, SELFPAY ==
[2023-07-09] VITALS (14 sets, daily range): BP systolic 108–129; BP diastolic 72–94; PULSE 67–97; RESP 14–18; TEMP 36.2–36.6; O2SAT 95–100; BMI 32.5; BMI 30.5
--- NOTE | 2023-07-09 14:10 | EKG12_ITS ---
Test Reason : STROKE Blood Pressure : / mmHG Vent. Rate : 090 BPM Atrial Rate : 090 BPM P-R Int : 160 ms QRS Dur : 106 ms QT Int : 398 ms P-R-T Axes : 044 -17 035 degrees QTc Int : 486 ms Normal sinus rhythm Cannot rule out Anterior infarct (cited on or before 30-JUN-2022) Abnormal ECG Confirmed by NANCY BREWER, TYLER ([id number]), editor news LALI NORTON ([id number]) on 07/15/2023 8:34:56 AM Referred By: BRITTANI Confirmed By:LON CRUZ MD
--- NOTE | 2023-07-09 14:10 | CT_ITS ---
STUDY: CT HEAD STROKE PROTOCOL W/O CONTRAST INJECTION REASON FOR EXAM: Female, 68 years old. Neuro deficit, acute, stroke suspected RADIATION DOSAGE (If Supplied By Facility): CTDIvol = ( 47.06 ) mGy, DLP = ( 898.30 ) mGycm TECHNIQUE: Transaxial CT imaging of the brain was performed without administration of intravenous contrast material. Individualized dose optimization techniques were used for this CT. COMPARISON: Comparison is made with prior study March 06, 2023. FINDINGS: Normal soft tissue structures. There is hyperostosis frontalis internus. Normal size ventricles and extra-axial spaces for the patient''s age. Normal white matter tracts of the cerebral hemispheres. Normal basal ganglia and thalami. Normal brainstem. Normal cerebellum. There is no intracranial hemorrhage. There are no findings of an acute ischemic infarction. Normal visualized paranasal sinuses. ASPECT score: 10 CT/STROKE Brain/Head without Cont IMPRESSION: Normal unenhanced CT scan of the brain. N.B. : The above Results were Read Back by Александр Burns MD to Petey Sweet and understanding confirmed on 07/09/2023 14:39:22 (ET). Electronically Signed: Александр Burns MD at 14:40 EST ,
--- NOTE | 2023-07-09 14:12 | EDS_ITS ---
HPI History of Present Illness Chief Complaint: Neuro S/Sx Narrative Narrative: 88-year-old female with history of stroke presenting with strokelike symptoms. She presents with her niece who is her POA and caregiver. She states that she witnessed this. She states that when she started slurring her speech she had to do her ABCs and she got to G and that she told her to stop. She had her hold up her arms and she states the left arm flinched. Patient at baseline has trouble moving her right leg secondary to hip surgery. She is able to flex the hip from a seated position. Patient states she also has a left-sided occipital headache which started at the same time. She has history of migraines but no history of stroke symptoms with migraines. Patient denies any trauma. She states she is not on Plavix but she takes 81 mg of aspirin daily. Patient described double vision earlier but now states she sees halos around objects. She complains of slight decrease sensation to the face on the left side. She states she was dizzy as well. [facility] Medical History (Updated 07/09/23 @ 17:[address] Clint Reardon MD) Arm weakness Asthma CAD (coronary artery disease) Carotid artery disease COPD (chronic obstructive pulmonary disease) Dyslipidemia GERD (gastroesophageal reflux disease) Grand mal seizure Heart attack Heart failure History of back problems History of breast cancer History of cervical cancer History of COPD History of migraine History of seizures Hx of cardiac murmur Hx of chronic arthritis Hx of chronic bronchitis Hx of emotional problems Hx of hearing loss Hx of hypoglycemia Hx of seasonal allergies Hypotension Leg weakness Major depressive disorder Paroxysmal SVT (supraventricular tachycardia) Posttraumatic stress disorder Prediabetes Stroke-like symptoms TBI (traumatic brain injury) TIA (transient ischemic attack) Vocal cord polyp Wears glasses Home Medications albuterol sulfate 90 mcg/actuation aerosol inhaler (Ventolin HFA) 90 mcg inhalation Q4H PRN SHORTNESS OF BREATH 05/25/22 [History Last Taken Unknown] omeprazole 40 mg capsule,delayed release 40 mg PO BID ACID REFLUX 05/25/22 [History Last Taken 07/09/23] simvastatin 40 mg tablet 40 mg PO QHS CHOLESTEROL 05/25/22 [History Last Taken 07/08/23] aspirin 81 mg tablet,delayed release (Adult Low Dose Aspirin) 81 mg PO DAILY HEART HEALTH 06/26/22 [History Last Taken 07/09/23] handicap placard #1 ea 07/23/22 [Rx Last Taken Unknown] miscellaneous medical supply #2 ea 08/16/22 [Rx Last Taken Unknown] diclofenac sodium 75 mg tablet,delayed release 75 mg PO BID PAIN #60 tabs 02/12/23 [Rx Last Taken 07/09/23] hydrocodone 10 mg-acetaminophen 325 mg tablet 1 tab PO Q6H PRN PAIN 02/18/23 [History Last Taken 07/09/23] cyclobenzaprine 10 mg tablet 20 mg PO 4X/DAY MUSCLE SPASMS 02/28/23 [History Last Taken 07/09/23] diazepam 5 mg tablet 5 mg PO DAILY PRN ANXIETY #30 tabs 05/07/23 [Rx Last Taken Unknown] sertraline 50 mg tablet 50 mg PO DAILY DEPRESSION/ANXIETY #90 tabs 05/15/23 [Rx Last Taken 07/09/23] levothyroxine 88 mcg tablet 88 mcg PO QHS THYROID 05/24/23 [History Last Taken 07/08/23] benzonatate 100 mg capsule 200 mg PO DAILY COUGH 06/04/23 [History Last Taken 07/09/23] budesonide-formoterol HFA 160 mcg-4.5 mcg/actuation aerosol inhaler (Symbicort) 2 puff inhalation BID PRN COPD 06/04/23 [History Last Taken Unknown] gabapentin 300 mg capsule 300 mg PO TID NEUROPATHY 06/04/23 [History Last Taken 07/09/23] methocarbamol 750 mg tablet 750 mg PO 4X/DAY MUSCLE SPASMS/PAIN 06/04/23 [History Last Taken 07/09/23] phentermine 37.5 mg tablet 37.5 mg PO DAILY WEIGHT LOSS 06/04/23 [History Last Taken 07/09/23] aripiprazole 5 mg tablet 5 mg PO QHS DEPRESSION 07/09/23 [History Last Taken 07/08/23] dicyclomine 20 mg tablet 20 mg PO 4X/DAY IRRITABLE BOWELS 07/09/23 [History Last Taken 07/09/23] doxepin 10 mg capsule 10 mg PO QHS DEPRESSION 07/09/23 [History Last Taken 07/08/23] metformin 500 mg tablet 500 mg PO QHS DIABETES 07/09/23 [History Last Taken 07/08/23] prazosin 1 mg capsule 1 mg PO QHS BLOOD PRESSURE 07/09/23 [History Last Taken 07/08/23] promethazine 25 mg tablet 25 mg PO Q6H PRN NAUSEA/VOMITING 07/09/23 [History Last Taken 07/08/23] Allergy/AdvReac Type Severity Reaction Status Date / Time divalproex sodium Allergy Angioedema Verified 07/09/23 13:53 [From Depakote] Influenza Virus Vaccines Allergy Angioedema Verified 07/09/23 13:53 [flu shot] phenytoin [From Dilantin] Allergy Hives Verified 07/09/23 13:53 Iodinated Contrast Media AdvReac Intermediate Angioedema Verified 07/09/23 13:53 Latex, Natural Rubber AdvReac Swelling Verified 07/09/23 13:53 meloxicam AdvReac Other Verified 07/09/23 13:53 oxybutynin [From Ditropan] AdvReac Swelling Verified 07/09/23 13:53 pravastatin AdvReac Swelling Verified 07/09/23 13:53 tetracycline AdvReac Itching Verified 07/09/23 13:53 tramadol AdvReac Other Verified 07/09/23 13:53 Family History Other Adopted Surgical History History of total right hip replacement Hx of cholecystectomy S/P ALLAN (total abdominal hysterectomy) Social History household members: other details: Living with her keya. 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 Smoking Status: Never smoker Electronic Cigarette Use: not used alcohol intake: never substance use type: does not use caffeine: Yes Type: coffee Number of servings: 1 do you feel safe at home: Yes ROS ROS ED Constitutional Constitutional ED: Denies chills, fever(s) or sweats Eyes Eyes: Denies blurry vision or change in vision ENT ENT ED: Denies ear pain or sore throat Cardiovascular Cardiovascular: Denies chest pain, palpitations or racing heartbeat Respiratory/Chest Respiratory/Chest: Denies cough, dyspnea or sputum Gastrointestinal Gastrointestinal: Denies abdominal pain, constipation, diarrhea, nausea or vomiting Genitourinary Genitourinary ED: Denies dysuria, hematuria or urinary frequency Musculoskeletal Musculoskeletal: Denies arthralgias, myalgias or neck pain Integumentary Denies abscess, Abrasions or rash Neurologic Neurologic: Reports headache(s), paresthesias and other Details: Slurred speech ; Denies weakness Psychiatric Psychiatric: Denies anxiety, depression, suicidal ideation or suicidal thoughts Endocrine Endocrinology: Denies polydipsia or polyuria EXAM Physical Exam Const Vital Signs: 07/09/23 13:55 07/09/23 14:03 07/09/23 14:50 Temperature 98 F Temperature Source Temporal Pulse Rate 86 89 Respiratory Rate 16 18 Blood Pressure 127/76 H 127/76 H Blood Pressure Mean 93 93 Pulse Ox 95 95 98 Oxygen Delivery Method Room Air Room Air Room Air 07/09/23 15:10 07/09/23 15:15 07/09/23 15:30 Temperature Temperature Source Pulse Rate 82 83 77 Respiratory Rate 15 16 15 Blood Pressure 119/75 118/81 H Blood Pressure Mean 89 93 Pulse Ox 98 98 98 Oxygen Delivery Method Room Air Room Air Room Air 07/09/23 16:00 07/09/23 16:30 07/09/23 16:42 Temperature Temperature Source Pulse Rate 76 75 78 Respiratory Rate 16 16 16 Blood Pressure 115/72 108/94 H 108/94 H Blood Pressure Mean 86 98 98 Pulse Ox 98 98 100 Oxygen Delivery Method Room Air Positive well nourished General Appearance ED: NAD HEENT Reports moist mucous membranes Eyes PERRL and EOMs intact bilaterally Neck no lymphadenopathy Chest Wall inspection of chest normal Resp normal respiratory effort Cardio Rate: regular rate Rhythm: regular rhythm Neuro oriented x3 Carson Coma Scale: document GCS findings Spontaneous Extensor Response Oriented 11 Psych mental status grossly normal Skin no wounds General Skin Exam: Negative for jaundice NIHSS NIHSS Initial: 1a Level of Consciousness: 0 1b LOC Questions (Score 2 if aphasic/stupor): 0 1c LOC Commands (Only score 1st attempt): 0 2 Best Gaze (If aphasic, use reflexive mvmts.): 0 3 Visual: 1 4 Facial Palsy: 1 5 Motor Arm Right (UN = amputation/fusion): 0 5 Motor Arm Left: 0 6 Motor Leg Right: 0 6 Motor Leg Left: 0 7 Limb ataxia (Only + if out of proportion): 0 8 Sensory (Aphasia/stupor=0 or 1, coma=2): 1 10 Dysarthria (mute, coma=2, intubated=UN): 0 11 Extinction and Inattention (only scored if +): 0 Total Score: 3 MDM MDM MDM Narrative Medical decision making narrative: 68-year-old female presenting with strokelike symptoms. NIH stroke scale score of 3. Stroke team was called prior to my arrival to the ED today. Patient was immediately assessed when I did arrive. NIH stroke scale score is still 3. Patient has history of stroke is not on Plavix. She takes 81 mg of aspirin daily. Patient also has a headache on the left side. Differential includes stroke, TIA, intracranial hemorrhage, atypical migraine. Patient taken to CT and CT of the brain was negative. We did discuss doing a CTA however the patient states that she has bad veins and will only allow access in the left hand. She also explicitly declines contrast dye because she states she has angioedema to it. For this reason this was not done. Stroke neurologist recommended MRA and MRI. CBC, BMP, troponin all normal. EKG on my interpretation shows normal sinus rhythm with a ventricular rate 90 bpm without sign of ischemic change or ectopy. Chest x-ray is normal without any acute process. Patient given aspirin prior to admission to the floor. Discussed with hospitalist. Impression: 1. CVA Lab Data Attestation: I reviewed the patient's lab results. Labs: Laboratory Results - last 24 hr 07/09/23 07/09/23 13:53 15:35 WBC 6.2 RBC 3.29 L Hgb 9.3 L Hct 29.8 L MCV 90.6 MCH 28.3 MCHC 31.2 L RDW Std Deviation 53.5 H RDW Coeff of Arti 16.1 H Plt Count 269 MPV 9.6 Immature Gran % (Auto) 0.500 Neut % (Auto) 62.2 Lymph % (Auto) 25.2 [place] % (Auto) 8.7 Eos % (Auto) 2.9 Baso % (Auto) 0.5 Absolute Neuts (auto) 3.9 Absolute Lymphs (auto) 1.56 Nucleated RBC % 0 PT 11.7 INR 0.9 APTT 22.9 L Sodium 130 L Potassium 4.6 Chloride 99 Carbon Dioxide 26.0 Anion Gap 5 BUN 11 Creatinine 1.08 H Estim Creat Clear Calc 48.48 Est GFR (MDRD) Af Amer 65 Est GFR (MDRD) Non-Af 54 L BUN/Creatinine Ratio 10.2 Glucose 94 Calcium 8.3 L Troponin I High Sens 6 POC Glucose 92 Radiography Diagnostic Testing: Clinical Impression(s) from Imaging Studies Brain CT 07/09/23 14:10 IMPRESSION: Normal unenhanced CT scan of the brain. N.B. : The above Results were Read Back by Александр Burns MD to Petey Sweet and understanding confirmed on 07/09/2023 14:39:22 (ET). Electronically Signed: Александр Burns MD at 14:40 EST , Chest X-Ray 07/09/23 16:10 IMPRESSION: No radiographic evidence of acute cardiopulmonary disease. Electronically Signed: Peter Maier MD at 16:21 EST , Discharge Plan Triage Chief Complaint: Neuro S/Sx ED Provider: Petey Sweet Dx/Rx/DC Orders Primary Care Provider: Glenis Paula NP
[2023-07-09 15:39] LABS: Bedside Glucose 92 mg/dL (74-106)
[2023-07-09 15:42] LABS: Absolute Lymphocyte Count 1.56 X10^3/uL (0.83-4.51); Absolute Neutrophil Count 3.9 X10^3/uL (2.0-7.7); Basophil# 0.03 X10^3/uL; Basophil% 0.5 % (0-1); Eosinophil# 0.18 X10^3/uL; Eosinophils% 2.9 % (0-5); Hematocrit 29.8 % (37-47); Hemoglobin 9.3 g/dL (12.0-15.0); Lymphocyte # 1.56 X10^3/ul (0.83-4.51); Lymphocyte % 25.2 % (19-41); Mean Corp Hgb Conc 31.2 g/dL (32-36); Mean Corpuscular Hgb 28.3 pg (27.0-32.0); Mean Corpuscular Volume 90.6 fL (81-99); Mean Platelet Vol. 9.6 fl (6.2-12.0); Monocyte# 0.54 X10^3/uL; Monocyte% 8.7 % (0-10); NRBC Flagged by Analyzer 0 % (0-5); Neutrophil # 3.85 X10^3/uL (2.7-7.7); Neutrophil % 62.2 % (47-70); Platelet Count 269 K/mm3 (150-450); RBC Distribution Width CV 16.1 % (11.6-14.6); RBC Distribution Width SD 53.5 fl (35.1-43.9); Red Blood Count 3.29 M/mm3 (4.2-5.4); White Blood Count 6.2 K/mm3 (4.4-11.0)
[2023-07-09 15:51] LABS: International Normalized Ratio 0.9; Prothrombin Time (Protime)PT. 11.7 SECONDS (11.7-14.9)
[2023-07-09 15:52] LABS: Partial Thromboplast Time 22.9 Seconds (24.1-36.2)
--- NOTE | 2023-07-09 16:10 | RAD_ITS ---
EXAM: XR CHEST, 1 VIEW CLINICAL INDICATION: Neuro deficit, acute, stroke suspected TECHNIQUE: Frontal view of the chest. COMPARISON: 08/14/2022 FINDINGS: LUNGS AND PLEURAL SPACES: Unremarkable. No consolidation or edema. No pneumothorax. No effusion. HEART: Unremarkable. Cardiac silhouette not enlarged. MEDIASTINUM: Central airways and mediastinal contour are unremarkable. BONES/JOINTS: Unremarkable. SOFT TISSUES: Unremarkable. RAD/Chest 1 View IMPRESSION: No radiographic evidence of acute cardiopulmonary disease. Electronically Signed: Peter Maier MD at 16:21 EST ,
[2023-07-09 16:14] LABS: Anion Gap 5 (5-15); BUN 11 mg/dL (7-18); BUN/Creat Ratio 10.2 RATIO (10-20); Calcium,Total 8.3 mg/dL (8.5-10.1); Chloride 99 mmol/L (98-107); Creatinine, Serum 1.08 mg/dL (0.55-1.02); EST Glomerular Filtration Rate 54 mL/min (>60); Est Glom Filt Rate - Afr Amer 65 mL/min (>60); Estimated Creatinine Clearance 48.48 ml/min; Glucose 94 mg/dL (74-106); Potassium 4.6 mmol/L (3.5-5.1); Sodium Level 130 mmol/L (136-145); Troponin-I HS 6 pg/mL (3.0-54.0)
--- NOTE | 2023-07-09 16:41 | HP.PCM.HOS_ITS ---
HPI - General General Date of Admission: 07/09/23 HPI Narrative HALI BENJAMIN, is a 68 F who presents to the hospital with signs and symptoms consistent of a stroke. She had 2 previous strokes that presented with slurred speech. According to her and her sister her symptoms started around noon today with the slurred speech and occipital headache. CT of the brain was unremarkable and she is allergic to contrast dye and we could not get a decent IV to be able to obtain a CTA of the head and neck. She is already on aspirin and a statin. Teleneurology was consulted who placed her NIH at a 2. [facility] Medical History (Updated 07/09/23 @ 17:[address] Clint Reardon MD) Arm weakness Asthma CAD (coronary artery disease) Carotid artery disease COPD (chronic obstructive pulmonary disease) Dyslipidemia GERD (gastroesophageal reflux disease) Grand mal seizure Heart attack Heart failure History of back problems History of breast cancer History of cervical cancer History of COPD History of migraine History of seizures Hx of cardiac murmur Hx of chronic arthritis Hx of chronic bronchitis Hx of emotional problems Hx of hearing loss Hx of hypoglycemia Hx of seasonal allergies Hypotension Leg weakness Major depressive disorder Paroxysmal SVT (supraventricular tachycardia) Posttraumatic stress disorder Prediabetes Stroke-like symptoms TBI (traumatic brain injury) TIA (transient ischemic attack) Vocal cord polyp Wears glasses Home Medications albuterol sulfate 90 mcg/actuation aerosol inhaler (Ventolin HFA) 90 mcg inhalation Q4H PRN SHORTNESS OF BREATH 05/25/22 [History Last Taken Unknown] omeprazole 40 mg capsule,delayed release 40 mg PO BID ACID REFLUX 05/25/22 [His tory Last Taken 07/09/23] simvastatin 40 mg tablet 40 mg PO QHS CHOLESTEROL 05/25/22 [History Last Taken 07/08/23] aspirin 81 mg tablet,delayed release (Adult Low Dose Aspirin) 81 mg PO DAILY HEART HEALTH 06/26/22 [History Last Taken 07/09/23] handicap placard #1 ea 07/23/22 [Rx Last Taken Unknown] miscellaneous medical supply #2 ea 08/16/22 [Rx Last Taken Unknown] diclofenac sodium 75 mg tablet,delayed release 75 mg PO BID PAIN #60 tabs 02/12/23 [Rx Last Taken 07/09/23] hydrocodone 10 mg-acetaminophen 325 mg tablet 1 tab PO Q6H PRN PAIN 02/18/23 [History Last Taken 07/09/23] cyclobenzaprine 10 mg tablet 20 mg PO 4X/DAY MUSCLE SPASMS 02/28/23 [History Last Taken 07/09/23] diazepam 5 mg tablet 5 mg PO DAILY PRN ANXIETY #30 tabs 05/07/23 [Rx Last Taken Unknown] sertraline 50 mg tablet 50 mg PO DAILY DEPRESSION/ANXIETY #90 tabs 05/15/23 [Rx Last Taken 07/09/23] levothyroxine 88 mcg tablet 88 mcg PO QHS THYROID 05/24/23 [History Last Taken 07/08/23] benzonatate 100 mg capsule 200 mg PO DAILY COUGH 06/04/23 [History Last Taken 07/09/23] budesonide-formoterol HFA 160 mcg-4.5 mcg/actuation aerosol inhaler (Symbicort) 2 puff inhalation BID PRN COPD 06/04/23 [History Last Taken Unknown] gabapentin 300 mg capsule 300 mg PO TID NEUROPATHY 06/04/23 [History Last Taken 07/09/23] methocarbamol 750 mg tablet 750 mg PO 4X/DAY MUSCLE SPASMS/PAIN 06/04/23 [History Last Taken 07/09/23] phentermine 37.5 mg tablet 37.5 mg PO DAILY WEIGHT LOSS 06/04/23 [History Last Taken 07/09/23] aripiprazole 5 mg tablet 5 mg PO QHS DEPRESSION 07/09/23 [History Last Taken 07/08/23] dicyclomine 20 mg tablet 20 mg PO 4X/DAY IRRITABLE BOWELS 07/09/23 [History Last Taken 07/09/23] doxepin 10 mg capsule 10 mg PO QHS DEPRESSION 07/09/23 [History Last Taken 07/08/23] metformin 500 mg tablet 500 mg PO QHS DIABETES 07/09/23 [History Last Taken 07/08/23] prazosin 1 mg capsule 1 mg PO QHS BLOOD PRESSURE 07/09/23 [History Last Taken 07/08/23] promethazine 25 mg tablet 25 mg PO Q6H PRN NAUSEA/VOMITING 07/09/23 [History Last Taken 07/08/23] Allergy/AdvReac Type Severity Reaction Status Date / Time divalproex sodium Allergy Angioedema Verified 07/09/23 13:53 [From Depakote] Influenza Virus Vaccines Allergy Angioedema Verified 07/09/23 13:53 [flu shot] phenytoin [From Dilantin] Allergy Hives Verified 07/09/23 13:53 Iodinated Contrast Media AdvReac Intermediate Angioedema Verified 07/09/23 13:53 Latex, Natural Rubber AdvReac Swelling Verified 07/09/23 13:53 meloxicam AdvReac Other Verified 07/09/23 13:53 oxybutynin [From Ditropan] AdvReac Swelling Verified 07/09/23 13:53 pravastatin AdvReac Swelling Verified 07/09/23 13:53 tetracycline AdvReac Itching Verified 07/09/23 13:53 tramadol AdvReac Other Verified 07/09/23 13:53 Family History Other Adopted Surgical History History of total right hip replacement Hx of cholecystectomy S/P ALLAN (total abdominal hysterectomy) Social History household members: other details: Living with her kyea. 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 Smoking Status: Never smoker Electronic Cigarette Use: not used alcohol intake: never substance use type: does not use caffeine: Yes Type: coffee Number of servings: 1 do you feel safe at home: Yes ROS Constitutional Constitutional: Reports fatigue; Denies chills, fever(s) or malaise Eyes Eyes: Denies blurry vision ENT HEENT: Denies headache(s) or nasal discharge Cardiovascular Cardiovascular: Denies chest pain, dyspnea on exertion or syncope Respiratory/Chest Respiratory/Chest: Denies cough, shortness of breath at rest or shortness of breath with exertion Gastrointestinal Gastrointestinal: Denies constipation, diarrhea, nausea or vomiting Genitourinary Genitourinary: Denies dysuria Neurologic Neurologic: Reports abnormal speech and headache(s); Denies focal weakness, numbness or tremor(s) Psychiatric Psychiatric: Denies anxiety or depression Vital Signs Vital Signs Vital Signs: 07/09/23 13:55 07/09/23 14:03 07/09/23 14:50 Temperature 98 F Temperature Source Temporal Pulse Rate 86 89 Respiratory Rate 16 18 Blood Pressure 127/76 H 127/76 H Blood Pressure Mean 93 93 Pulse Ox 95 95 98 Oxygen Delivery Method Room Air Room Air Room Air 07/09/23 15:10 07/09/23 15:15 07/09/23 15:30 Temperature Temperature Source Pulse Rate 82 83 77 Respiratory Rate 15 16 15 Blood Pressure 119/75 118/81 H Blood Pressure Mean 89 93 Pulse Ox 98 98 98 Oxygen Delivery Method Room Air Room Air Room Air 07/09/23 16:00 Temperature Temperature Source Pulse Rate 76 Respiratory Rate 16 Blood Pressure 115/72 Blood Pressure Mean 86 Pulse Ox 98 Oxygen Delivery Method Room Air Weight Weight: 207 lb 7.28 oz Body Mass Index (BMI) 32.5 Physical Exam Narrative General: Alert, Oriented x3, Cooperative, No apparent distress HEENT: Atraumatic, PERRLA, EOMI, Normocephalic Oral: Moist Mucosa Neck: Supple, No JVD Lungs: Clear to auscultation, Normal air movement, No rhonchi, No wheeze, No rales Cardiovascular: Regular rate, Regular Rhythm, Normal S1, Normal S2, No murmurs Abdomen: Soft, Non Tender, Non-Distended, No Hepato-splenomegaly Extremities: No edema, Capillary Refill Less than 3 Seconds Skin: No rashes, No breakdown Musculoskeletal: No Tenderness to Palpation of Joints or Extremities Neurological: Cranial nerves II-XII grossly intact, moves all extremities no focal neurological deficit, Sensory exam intact to light touch and pain Psych/Mental Status: Normal Affect, Appropriate Results Lab / Micro Data 07/09/23 15:35 07/09/23 15:35 Labs: Laboratory Results - last 24 hr 07/09/23 13:53: POC Glucose 92 07/09/23 15:35: WBC 6.2, RBC 3.29 L, Hgb 9.3 L, Hct 29.8 L, MCV 90.6, MCH 28.3, MCHC 31.2 L, RDW Std Deviation 53.5 H, RDW Coeff of Arti 16.1 H, Plt Count 269, MPV 9.6, Immature Gran % (Auto) 0.500, Neut % (Auto) 62.2, Lymph % (Auto) 25.2, [place] % (Auto) 8.7, Eos % (Auto) 2.9, Baso % (Auto) 0.5, Absolute Neuts (auto) 3.9, Absolute Lymphs (auto) 1.56, Nucleated RBC % 0, PT 11.7, INR 0.9, APTT 22.9 L, Sodium 130 L, Potassium 4.6, Chloride 99, Carbon Dioxide 26.0, Anion Gap 5, BUN 11, Creatinine 1.08 H, Estim Creat Clear Calc 48.48, Est GFR (MDRD) Af Amer 65, Est GFR (MDRD) Non-Af 54 L, BUN/Creatinine Ratio 10.2, Glucose 94, Calcium 8.3 L, Troponin I High Sens [address] 07/09/23 14:10 IMPRESSION: Normal unenhanced CT scan of the brain. N.B. : The above Results were Read Back by Александр Burns MD to Petey Sweet and understanding confirmed on 07/09/2023 14:39:22 (ET). Electronically Signed: Александр Burns MD at 14:40 EST , Chest X-Ray 07/09/23 16:10 IMPRESSION: No radiographic evidence of acute cardiopulmonary disease. Electronically Signed: Peter Maier MD at 16:21 EST , Assessment & Plan Assessment/Plan (1) TIA (transient ischemic attack): PLAN: Plan 1. TIA with history of CVA ? She is already on aspirin and simvastatin ? We will add Plavix ? Plan for an MRI in the morning as well as an echo ? Because of her allergy to contrast and IV access will obtain a carotid ultrasound of her neck 2. DM2 ? Hold her metformin ? We will place her on sliding scale insulin ? Accu-Cheks ACHS ? We will monitor and make adjustments as necessary 3. Chronic COPD ? Not in exacerbation ? Can resume her home inhalers 4. Hypothyroidism ? Stable ? Continue with Synthroid 5. Anxiety/depression/chronic pain ? Stable ? Continue with her home medications 6. GERD ? Stable ? Continue with PPI DVT: Ambulation Charges/Coding Visit Charges Inpatient E&M: 63006 Init Hosp L2
[2023-07-09] MEDS: Aspirin 325 MG Tablet PO (16:58)
--- NOTE | 2023-07-09 17:58 | CDU_ITS ---
Reason For Study: CVA Rt. Velocities/BP Lt. Velocities/BP Prox CCA 67.4/23.9 cm/sec. Prox CCA 90.2/33.3 cm/sec. Mid CCA 103.6/39.9 cm/sec. Mid CCA 103.5/40.9 cm/sec. Dist CCA 86.1/38.8 cm/sec. Dist CCA 82.6/29.8 cm/sec. Prox ICA 91.2/33.5 cm/sec. Prox ICA 102.8/48 cm/sec. Mid ICA 74/28.6 cm/sec. Mid ICA 97.4/42.6 cm/sec. Dist ICA 92.5/36 cm/sec. Dist ICA 95.5/38.9 cm/sec. Rt. ICA/CCA = 1.07. Lt. ICA/CCA = 1.14. Prox ECA 65.2/12.4 cm/sec. Prox ECA 96.1/26.2 cm/sec. Rt. Vert. 44.6/17.6 cm/sec. Lt. Vert. 52/16.8 cm/sec. Right Extracranial There is intimal thickening but no significant atherosclerotic plaque noted in the right common carotid artery. There is heterogeneous, irregular atherosclerotic plaque noted in the right internal carotid artery. There is intimal thickening but no significant atherosclerotic plaque noted in the right external carotid artery. Antegrade flow is noted in the right vertebral artery. Left Extracranial There is intimal thickening but no significant atherosclerotic plaque noted in the left common carotid artery. There is heterogeneous, irregular atherosclerotic plaque noted in the left internal carotid artery. There is intimal thickening but no significant atherosclerotic plaque noted in the left external carotid artery. Antegrade flow is noted in the left vertebral artery. Procedure Carotid Duplex 80852. This is a Carotid Duplex examination using B-mode, color flow and specral Doppler. Exam performed portable in patient room. VL/Carotid Duplex Ultrasound Interpretation Summary Mild (<50%) stenosis right extracranial internal carotid. Mild (<50%) stenosis left extracranial internal carotid. Patent and antegrade vertebrals bilaterally. Ordering Physician: Clint Reardon Referring Physician: Glenis Paula Performed By: María Bee RVT
--- NOTE | 2023-07-09 17:58 | ECHOD_ITS ---
Reason For Study: TIA/CVA Procedure This was a 2D Doppler, Color Flow transthoracic echocardiogram. Exam performed in department. Left Ventricle Normal LV size. The estimated ejection fraction is 65 %. No evidence for diastolic dysfunction. No regional wall motion abnormalities noted. Right Ventricle Normal RV size. Normal systolic function. Atria Normal left atrium. Normal right atrium. No doppler evidence for ASD. Mitral Valve There is no mitral valve stenosis. No mitral valve insufficiency. Tricuspid Valve There is no tricuspid stenosis. Unable to estimate RV systolic pressure due to inadequate jet, pulmonary artery pressure probably normal. Aortic Valve Trisinus/trileaflet aortic valve. There is no aortic stenosis. No aortic valve insufficiency. Pulmonic Valve There is no pulmonic valvular stenosis. No pulmonic valve insufficiency. Great Vessels Normal aortic root. Pericardium/Pleural No pericardial effusion. MMode/2D Measurements & Calculations LVIDd: 4.6 cm IVSd: 0.89 cm Ao root diam: 2.7 cm LVIDs: 2.7 cm LVPWd: 0.98 cm RVDd: 2.0 cm FS: 41.5 % LAV(MOD-bp): 56.8 ml LVAd ap4: 19.4 cm2 LVAd ap2: 14.2 cm2 LAV(MOD-bp) Indexed: 27.7 ml/m2 LVLd ap4: 7.2 cm LVLd ap2: 6.8 cm LAV(MOD-sp2): 42.8 ml EDV(MOD-sp4): 43.9 ml EDV(MOD-sp2): 24.2 ml LAV(MOD-sp4): 64.7 ml EDV(sp4-el): 43.9 ml EDV(sp2-el): 25.1 ml LVAs ap4: 10.0 cm2 LVAs ap2: 7.3 cm2 LVLs ap4: 5.9 cm LVLs ap2: 6.0 cm ESV(MOD-sp4): 14.9 ml ESV(MOD-sp2): 7.9 ml ESV(sp4-el): 14.5 ml ESV(sp2-el): 7.7 ml EF(MOD-sp4): 66.1 % EF(MOD-sp2): 67.5 % EF(sp4-el): 67.1 % SV(MOD-sp4): 29.0 ml SV(MOD-sp2): 16.3 ml SV(sp4-el): 29.5 ml LA dimension(2D): 4.2 cm LA A4 area: 21.6 cm2 Time Measurements MV dec time: 0.17 sec Doppler Measurements & Calculations MV E max scar: 56.9 cm/sec Lat Peak E' Scar: 11.8 cm/sec Med Peak E' Scar: 10.7 cm/sec MV A max scar: 90.9 cm/sec E/E' lat: 4.8 E/E' med: 5.3 MV E/A: 0.63 Ao V2 max: 134.0 cm/sec PA V2 max: 100.2 cm/sec TR max scar: 105.4 cm/sec Ao max P.2 mmHg PA V2 mean: 77.5 cm/sec TR max P.4 mmHg Ao V2 mean: 83.4 cm/sec Ao mean P.3 mmHg Ao V2 VTI: 23.3 cm ECHO/Echo Complete Interpretation Summary The estimated ejection fraction is 65 %. No evidence for diastolic dysfunction. Ordering Physician: Clint Reardon Referring Physician: Glenis Paula Performed By: Gilma Borden, JAKE, RVT
--- NOTE | 2023-07-09 17:58 | MRI_ITS ---
STUDY: MRI BRAIN WITHOUT CONTRAST REASON FOR EXAM: Female, 68 years old. CVA, slurred speech, difficulty walking, inability to track with eyes TECHNIQUE: Standardized multiplanar fat and water weighted pulse sequences were obtained. COMPARISON: CT. FINDINGS: Normal size of the ventricles and extra-axial spaces for the patient''s age. Normal white matter tracts of the supratentorial brain. There is no evidence for recent intracranial ischemia or other cause of cytotoxic edema on diffusion weighted imaging (DWI). Normal T2* images of the brain without demonstrated susceptibility artifact. There is no demonstrated hemosiderin stain. Normal bilateral basal ganglia. Normal thalami. There is no extra-axial fluid accumulation. Normal flow voids within the major intracranial circulation suggesting patency by spin echo criteria. Normal sella turcica, pituitary gland, infundibular stalk, optic chiasm and hypothalamus. Normal tectal plate and pineal gland. Normal midbrain, roberto and medulla. Normal cerebellum. Normal basal cisterns. Normal bilateral temporal bones. Normal bilateral internal auditory canals. No demonstrated orbital abnormality, within the constraints of a routine brain study. There is mucosal thickening and fluid of the left maxillary sinus. Normal calvarium and skull base. Normal visualized soft tissue structures. Normal visualized upper cervical spine. MRI/Brain without Contrast IMPRESSION: Normal unenhanced MRI of the brain. Left maxillary sinusitis. Electronically Signed: Jeff Vazquez MD at 21:18 EST ,
[2023-07-09] MEDS: Dicyclomine 10 MG Capsule 20 MG PO (22:06)
[2023-07-09] MEDS: Doxazosin 1 MG Tablet PO (22:06)
[2023-07-09] MEDS: Atorvastatin Calcium 20 MG Tablet PO (22:07)
[2023-07-09] MEDS: Doxepin Hydrochloride 10 MG Capsule PO (22:07)
[2023-07-09] MEDS: ARIPiprazole 5 MG Tablet PO (22:07)
[2023-07-09] MEDS: Pantoprazole Sodium 40 MG Tablet PO (22:07)
[2023-07-09] MEDS: Methocarbamol 750 MG Tablet PO (22:08)
[2023-07-09] MEDS: Levothyroxine 88 MCG Tablet PO (22:08)
[2023-07-09] MEDS: Gabapentin 300 MG Capsule PO (22:13)
[2023-07-09] MEDS: oxyCODONE 5 MG Tablet 10 MG PO (22:13)
[2023-07-09 22:58] LABS: Bedside Glucose 119 mg/dL (74-106)
[2023-07-10 02:07] VITALS: BMI 30.5
[2023-07-10 02:23] VITALS: BP 86/59; PULSE 81; RESP 16; TEMP 36.4; O2SAT 94
[2023-07-10 06:22] LABS: Absolute Lymphocyte Count 1.52 X10^3/uL (0.83-4.51); Absolute Neutrophil Count 2.5 X10^3/uL (2.0-7.7); Basophil# 0.03 X10^3/uL; Basophil% 0.6 % (0-1); Eosinophil# 0.19 X10^3/uL; Eosinophils% 4.1 % (0-5); Hematocrit 27.3 % (37-47); Hemoglobin 8.4 g/dL (12.0-15.0); Lymphocyte # 1.52 X10^3/ul (0.83-4.51); Lymphocyte % 32.5 % (19-41); Mean Corp Hgb Conc 30.8 g/dL (32-36); Mean Corpuscular Hgb 28.7 pg (27.0-32.0); Mean Corpuscular Volume 93.2 fL (81-99); Mean Platelet Vol. 9.7 fl (6.2-12.0); Monocyte# 0.46 X10^3/uL; Monocyte% 9.8 % (0-10); NRBC Flagged by Analyzer 0 % (0-5); Neutrophil # 2.46 X10^3/uL (2.7-7.7); Neutrophil % 52.6 % (47-70); Platelet Count 284 K/mm3 (150-450); RBC Distribution Width CV 16.4 % (11.6-14.6); RBC Distribution Width SD 56.4 fl (35.1-43.9); Red Blood Count 2.93 M/mm3 (4.2-5.4); White Blood Count 4.7 K/mm3 (4.4-11.0)
[2023-07-10] MEDS: Dicyclomine 10 MG Capsule 20 MG PO ×2 (06:22→12:13)
[2023-07-10 06:42] LABS: Bedside Glucose 96 mg/dL (74-106)
[2023-07-10 07:02] LABS: Anion Gap 6 (5-15); BUN 11 mg/dL (7-18); BUN/Creat Ratio 13.8 RATIO (10-20); Calcium,Total 8.2 mg/dL (8.5-10.1); Chloride 103 mmol/L (98-107); Cholesterol 241 mg/dL (200); EST Glomerular Filtration Rate 76 mL/min (>60); Est Glom Filt Rate - Afr Amer 92 mL/min (>60); Estimated Creatinine Clearance 63.01 ml/min; Glucose 97 mg/dL (74-106); High Density Lipoprotein 54 mg/dL; Potassium 4.5 mmol/L (3.5-5.1); Sodium Level 135 mmol/L (136-145); Triglycerides 85 mg/dL; Very Low Density Lipoprotein 17 mg/dL (5-40)
--- NOTE | 2023-07-10 07:57 | PN.HOSP_ITS ---
Reason for Visit Reason for Visit: Diagnoses Transient cerebral ischemic attack, unspecified (07/09/23) Subjective Subjective Feels well. She is not looking for her dog yesterday where she had the sudden onset of just not understanding people and not be able to speak. It resolved on its own. Never had this before. Objective Data Objective Data Vital Signs: Vital Signs Temp Pulse Resp BP Pulse Ox O2 Del Method 36.4 C L 81 16 86/59 L 94 Room Air 07/10/23 02:23 07/10/23 02:23 07/10/23 02:23 07/10/23 02:23 07/10/23 02:23 07/10/23 02:34 Oxygen Delivery Method Room Air Weight: 85.8 kg Body Mass Index (BMI) 30.5 Lab / Micro Data 07/10/23 05:45 07/10/23 05:45 Labs: Laboratory Results - last 24 hr 07/09/23 13:53: POC Glucose 92 07/09/23 15:35: WBC 6.2, RBC 3.29 L, Hgb 9.3 L, Hct 29.8 L, MCV 90.6, MCH 28.3, MCHC 31.2 L, RDW Std Deviation 53.5 H, RDW Coeff of Arti 16.1 H, Plt Count 269, MPV 9.6, Immature Gran % (Auto) 0.500, Neut % (Auto) 62.2, Lymph % (Auto) 25.2, [place] % (Auto) 8.7, Eos % (Auto) 2.9, Baso % (Auto) 0.5, Absolute Neuts (auto) 3.9, Absolute Lymphs (auto) 1.56, Nucleated RBC % 0, PT 11.7, INR 0.9, APTT 22.9 L, Sodium 130 L, Potassium 4.6, Chloride 99, Carbon Dioxide 26.0, Anion Gap 5, BUN 11, Creatinine 1.08 H, Estim Creat Clear Calc 48.48, Est GFR (MDRD) Af Amer 65, Est GFR (MDRD) Non-Af 54 L, BUN/Creatinine Ratio 10.2, Glucose 94, Calcium 8.3 L, Troponin I High Sens 6 07/09/23 22:06: POC Glucose 119 H 07/10/23 05:45: WBC 4.7, RBC 2.93 L, Hgb 8.4 L, Hct 27.3 L, MCV 93.2, MCH 28.7, MCHC 30.8 L, RDW Std Deviation 56.4 H, RDW Coeff of Arti 16.4 H, Plt Count 284, MPV 9.7, Immature Gran % (Auto) 0.400, Neut % (Auto) 52.6, Lymph % (Auto) 32.5, [place] % (Auto) 9.8, Eos % (Auto) 4.1, Baso % (Auto) 0.6, Absolute Neuts (auto) 2.5, Absolute Lymphs (auto) 1.52, Nucleated RBC % 0, Sodium 135 L, Potassium 4.5, Chloride 103, Carbon Dioxide 26.0, Anion Gap 6, BUN 11, Creatinine 0.80, Estim Creat Clear Calc 63.01, Est GFR (MDRD) Af Amer 92, Est GFR (MDRD) Non-Af 76, BUN/Creatinine Ratio 13.8, Glucose 97, Calcium 8.2 L, Triglycerides 85, Cholesterol 241 H, LDL Cholesterol 170 H, VLDL Cholesterol 17, HDL Cholesterol 54 07/10/23 06:22: POC Glucose 96 Radiography Diagnostic Testing: Radiology Impression Brain CT 07/09/23 14:10 IMPRESSION: Normal unenhanced CT scan of the brain. N.B. : The above Results were Read Back by Александр Burns MD to Petey Sweet and understanding confirmed on 07/09/2023 14:39:22 (ET). Electronically Signed: Александр Burns MD at 14:40 EST , Chest X-Ray 07/09/23 16:10 IMPRESSION: No radiographic evidence of acute cardiopulmonary disease. Electronically Signed: Peter Maier MD at 16:21 EST , Brain MRI 07/09/23 17:58 IMPRESSION: Normal unenhanced MRI of the brain. Left maxillary sinusitis. Electronically Signed: Jeff Vazquez MD at 21:18 EST , Physical Exam Const alert and no apparent distress HEENT head/scalp atraumatic HEENT Narrative: wide set eyes. Psych affect normal Assessment & Plan Assessment/Plan (1) TIA (transient ischemic attack): PLAN: Resolved. Patient denies ever having a headache with any of this. MRI was negative. Given the transient nature, is complete resolution, TIA seems less likely. This may have been iatrogenic as patient is on numerous medications but she but has been on those for period of time. She has recently been on phentermine for weight loss which has succeeded in helping with weight loss and is to be on that for about 3 months. Cannot rule out the phentermine being a contributing factor but it can cause dizziness, psychosis and restlessness. PLAN: Plan Chronic conditions: * DM2? Hold her metformin? We will place her on sliding scale insulin? Accu- Cheks ACHS? We will monitor and make adjustments as necessary * Chronic COPD? Not in exacerbation? Can resume her home inhalers * Hypothyroidism? Stable? Continue with Synthroid * Anxiety/depression/chronic pain? caution with medications as above. * GERD? Stable? Continue with PPI DVT: Ambulation
[2023-07-10 09:33] VITALS: BP 97/67; PULSE 86; RESP 12; TEMP 36.4; O2SAT 97
[2023-07-10] MEDS: Benzonatate 100 MG Capsule 200 MG PO (09:38)
[2023-07-10] MEDS: Methocarbamol 750 MG Tablet PO ×2 (09:39→14:08)
[2023-07-10] MEDS: Clopidogrel Bisulfate 75 MG Tablet PO (09:39)
[2023-07-10] MEDS: Aspirin E.C. 81 MG Tablet PO (09:39)
[2023-07-10] MEDS: Sertraline 50 MG Tablet PO (09:39)
[2023-07-10] MEDS: Pantoprazole Sodium 40 MG Tablet PO (09:39)
[2023-07-10] MEDS: Diclofenac 75 MG Tablet PO (09:39)
[2023-07-10] MEDS: Acetaminophen 500 MG Tablet 1000 MG PO (09:42)
[2023-07-10] MEDS: Gabapentin 300 MG Capsule 600 MG PO (09:43)
[2023-07-10 09:59] VITALS: O2SAT 95
[2023-07-10 10:10] VITALS: BMI 30.5
--- NOTE | 2023-07-10 10:31 | DS.PCM_ITS ---
Providers Date of Admission: 07/09/23 Primary Care Physician: HODAN GutiérrezC Reason For Visit: TIA Diagnosis Discharge Diagnosis (1) Confusion: Status: Acute Code(s): R41.0 - Disorientation, unspecified Plan: Resolved. Patient denies ever having a headache with any of this. MRI was negative. Given the transient nature, is complete resolution, TIA seems less likely. This may have been iatrogenic as patient is on numerous medications but she but has been on those for period of time. She has recently been on phentermine for weight loss which has succeeded in helping with weight loss and is to be on that for about 3 months. Cannot rule out the phentermine being a contributing factor but it can cause dizziness, psychosis and restlessness. (2) TIA (transient ischemic attack): Status: Acute Code(s): G45.9 - Transient cerebral ischemic attack, unspecified Plan: Ruled out Plan Chronic conditions: * DM2? Hold her metformin? We will place her on sliding scale insulin? Accu- Cheks ACHS? We will monitor and make adjustments as necessary * Chronic COPD? Not in exacerbation? Can resume her home inhalers * Hypothyroidism? Stable? Continue with Synthroid * Anxiety/depression/chronic pain? caution with medications as above. * GERD? Stable? Continue with PPI DVT: Ambulation Medications at Discharge Home Medications albuterol sulfate 90 mcg/actuation aerosol inhaler (Ventolin HFA) 90 mcg inhalation Q4H PRN SHORTNESS OF BREATH 05/25/22 omeprazole 40 mg capsule,delayed release 40 mg PO BID ACID REFLUX 05/25/22 simvastatin 40 mg tablet 40 mg PO QHS CHOLESTEROL 05/25/22 aspirin 81 mg tablet,delayed release (Adult Low Dose Aspirin) 81 mg PO DAILY HEART HEALTH 06/26/22 handicap placard #1 ea 07/23/22 miscellaneous medical supply #2 ea 08/16/22 diclofenac sodium 75 mg tablet,delayed release 75 mg PO BID PAIN #60 tabs 02/12/23 hydrocodone 10 mg-acetaminophen 325 mg tablet 1 tab PO Q6H PRN PAIN 02/18/23 cyclobenzaprine 10 mg tablet 20 mg PO 4X/DAY MUSCLE SPASMS 02/28/23 diazepam 5 mg tablet 5 mg PO DAILY PRN ANXIETY #30 tabs 05/07/23 sertraline 50 mg tablet 50 mg PO DAILY DEPRESSION/ANXIETY #90 tabs 05/15/23 levothyroxine 88 mcg tablet 88 mcg PO QHS THYROID 05/24/23 benzonatate 100 mg capsule 200 mg PO DAILY COUGH 06/04/23 budesonide-formoterol HFA 160 mcg-4.5 mcg/actuation aerosol inhaler (Symbicort) 2 puff inhalation BID PRN COPD 06/04/23 gabapentin 300 mg capsule 600 mg PO .COMPLEX NEUROPATHY 06/04/23 methocarbamol 750 mg tablet 750 mg PO 4X/DAY MUSCLE SPASMS/PAIN 06/04/23 phentermine 37.5 mg tablet 37.5 mg PO DAILY WEIGHT LOSS 06/04/23 aripiprazole 5 mg tablet 5 mg PO QHS DEPRESSION 07/09/23 dicyclomine 20 mg tablet 20 mg PO 4X/DAY IRRITABLE BOWELS 07/09/23 doxepin 10 mg capsule 10 mg PO QHS DEPRESSION 07/09/23 gabapentin 300 mg capsule 300 mg PO QHS 07/09/23 metformin 500 mg tablet 500 mg PO QHS DIABETES 07/09/23 prazosin 1 mg capsule 1 mg PO QHS BLOOD PRESSURE 07/09/23 promethazine 25 mg tablet 25 mg PO Q6H PRN NAUSEA/VOMITING 07/09/23 Hospital Course Operations None Procedures None Summary of Care Provided Minutes Spent on Discharge: 32 Weight / BMI Weight Weight: 85.8 kg Body Mass Index (BMI) 30.5 ABG / Lab / Microbiology Data 07/10/23 05:45 07/10/23 05:45 Laboratory: Laboratory Results - last 24 hr 07/09/23 13:53: POC Glucose 92 07/09/23 15:35: WBC 6.2, RBC 3.29 L, Hgb 9.3 L, Hct 29.8 L, MCV 90.6, MCH 28.3, MCHC 31.2 L, RDW Std Deviation 53.5 H, RDW Coeff of Arti 16.1 H, Plt Count 269, MPV 9.6, Immature Gran % (Auto) 0.500, Neut % (Auto) 62.2, Lymph % (Auto) 25.2, [place] % (Auto) 8.7, Eos % (Auto) 2.9, Baso % (Auto) 0.5, Absolute Neuts (auto) 3.9, Absolute Lymphs (auto) 1.56, Nucleated RBC % 0, PT 11.7, INR 0.9, APTT 22.9 L, Sodium 130 L, Potassium 4.6, Chloride 99, Carbon Dioxide 26.0, Anion Gap 5, BUN 11, Creatinine 1.08 H, Estim Creat Clear Calc 48.48, Est GFR (MDRD) Af Amer 65, Est GFR (MDRD) Non-Af 54 L, BUN/Creatinine Ratio 10.2, Glucose 94, Calcium 8.3 L, Troponin I High Sens 6 07/09/23 22:06: POC Glucose 119 H 07/10/23 05:45: WBC 4.7, RBC 2.93 L, Hgb 8.4 L, Hct 27.3 L, MCV 93.2, MCH 28.7, MCHC 30.8 L, RDW Std Deviation 56.4 H, RDW Coeff of Arti 16.4 H, Plt Count 284, MPV 9.7, Immature Gran % (Auto) 0.400, Neut % (Auto) 52.6, Lymph % (Auto) 32.5, [place] % (Auto) 9.8, Eos % (Auto) 4.1, Baso % (Auto) 0.6, Absolute Neuts (auto) 2.5, Absolute Lymphs (auto) 1.52, Nucleated RBC % 0, Sodium 135 L, Potassium 4.5, Chloride 103, Carbon Dioxide 26.0, Anion Gap 6, BUN 11, Creatinine 0.80, Estim Creat Clear Calc 63.01, Est GFR (MDRD) Af Amer 92, Est GFR (MDRD) Non-Af 76, BUN/Creatinine Ratio 13.8, Glucose 97, Calcium 8.2 L, Triglycerides 85, Cholesterol 241 H, LDL Cholesterol 170 H, VLDL Cholesterol 17, HDL Cholesterol 54 07/10/23 06:22: POC Glucose 96 Radiography Diagnostic Testing: Radiology Impression Brain CT 07/09/23 14:10 IMPRESSION: Normal unenhanced CT scan of the brain. N.B. : The above Results were Read Back by Александр Burns MD to Petey Sweet and understanding confirmed on 07/09/2023 14:39:22 (ET). Electronically Signed: Александр Burns MD at 14:40 EST , Chest X-Ray 07/09/23 16:10 IMPRESSION: No radiographic evidence of acute cardiopulmonary disease. Electronically Signed: Peter Maier MD at 16:21 EST , Brain MRI 07/09/23 17:58 IMPRESSION: Normal unenhanced MRI of the brain. Left maxillary sinusitis. Electronically Signed: Jeff Vazquez MD at 21:18 EST , D/C Instructions Discharge Diet: Low fat / Low cholesterol Meaningful Use Info Meaningful Use Diagnoses (Choose all that apply): None applicable Discharge Plan Admission Admit Date/Time: 07/09/23 17:08 Primary Reason for Your Visit: Confusion. Attending Provider: Misael Go Primary Care Provider: Glenis Paula HEALTH CARE SANITARY TECHNICIAN Consulting Providers: Clint Reardon Instructions Additional Instructions / Restrictions: You had a period of confusion. Unfortunately it resolved on its own. Your MRI here was negative for any stroke or lesion. I am concerned about your medications about this possibly contributing. If this does recur again then there may need to be further adjustments to her medications. Upon further revi ew, phentermine can cause issues regards to dizziness, psychosis and restlessness. Is unclear if that was a contributing factor or not but those are noted side effects from the medication. But also if you ever have an actual stroke again or another heart attack, the phentermine needs to be withheld indefinitely. Overall, I am not can to change in your medications at this time. Discharge Orders/Prescriptions Prescriptions: Continued aspirin [Adult Low Dose Aspirin] 81 mg tablet,delayed release (DR/EC) 81 mg PO DAILY (DME) handicap placard See Rx Instructions .ROUTE .MEDSUPPLY Qty: 1 0RF Rx Instructions: Length of time: 3 years (DME) miscellaneous medical supply Misc See Rx Instructions .Route Qty: 2 0RF Rx Instructions: As directed cyclobenzaprine 10 mg tablet 20 mg PO 4X/DAY hydrocodone-acetaminophen 10-325 mg tablet 1 tab PO Q6H PRN (Reason: PAIN ) sertraline 50 mg tablet 50 mg PO DAILY Qty: 90 3RF levothyroxine 88 mcg tablet 88 mcg PO QHS benzonatate 100 mg capsule 200 mg PO DAILY budesonide-formoterol [Symbicort] 160-4.5 mcg/actuation HFA aerosol inhaler 2 puff inhalation BID PRN (Reason: COPD) gabapentin 300 mg capsule 600 mg PO .COMPLEX Rx Instructions: 600 mg orally daily in the AM; TAKE TWO IN THE AM AND ONE AT HS phentermine 37.5 mg tablet 37.5 mg PO DAILY omeprazole 40 mg Capsule,Delayed Release(Dr/Ec) 40 mg PO BID simvastatin 40 mg Tablet 40 mg PO QHS albuterol sulfate [Ventolin HFA] 90 mcg/actuation Hfa Aerosol Inhaler 90 mcg INHALATION Q4H PRN (Reason: SHORTNESS OF BREATH ) methocarbamol 750 mg tablet 750 mg PO 4X/DAY prazosin 1 mg capsule 1 mg PO QHS doxepin 10 mg capsule 10 mg PO QHS aripiprazole 5 mg tablet 5 mg PO QHS metformin 500 mg tablet 500 mg PO QHS promethazine 25 mg tablet 25 mg PO Q6H PRN (Reason: NAUSEA/VOMITING ) dicyclomine 20 mg tablet 20 mg PO 4X/DAY gabapentin 300 mg capsule 300 mg PO QHS diclofenac sodium 75 mg tablet,delayed release (DR/EC) 75 mg PO BID Qty: 60 0RF diazepam 5 mg tablet 5 mg PO DAILY PRN (Reason: ANXIETY ) Qty: 30 0RF Referrals / Follow Up: Glenis Paula NP, HEALTH CARE SANITARY TECHNICIAN-C [Primary Care Provider] - Within 2 Weeks Disposition Disposition (needs filled in before D/C Order can be placed): Home, Self Care Charges/Coding Visit Charges Inpatient E&M: 27130 Disch Hosp >30min
--- NOTE | 2023-07-10 11:35 | CASEMGMT ---
Social Work - Advanced Directive Validation Medical records reviewed and unable find any scanned documents. Met with patient who reports to have a POAHC, Living Will, and a DNRCC-A, No Intubation. Patient reports niece, Bela Campbell is the POAHC. Patient is being discharged home today, so unable to bring documents in right now. Verbally agrees to bring all documents into hospital, so as to be scanned into record. -SHAE Mederos
--- NOTE | 2023-07-10 11:39 | CASEMGMT ---
Social Work - PHQ9 screen/Initial assessment Informant: Patient and medical record ? Personal Status Living Arrangements: Lives with sister who is not biologically related, but like a sister. Denies any safety concerns. Education/Literacy: College, nursing degree. Employment: Retired and on disability. Insurance: [employer] [facility] and [facility] community plan. : Reports 30 year history of . 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 Reports to have a DD214, but does not use the VA for any type of service. Has tried [facility] in [place] and [place], but not since moviing to [place]. Family Dynamics/Relationships:Reports to live with sister Nghia, and just bought a house. Will be moving from an apartment to the new home soon. Has a niece who comes over daily to help with morning routine of getting dressed and medications. Support System: Niece and sister; Reports active with [facility] for outpatient rehab service related to past stroke like symptoms. Living Will/POAHC:?Report to have both in place, as well as DNRCC-A. Reports will bring into the hospital. Medical History and Functioning: Reason for admission and Relevant Medical History: Reports history of 3 strokes and/or TIAs in the past. Reports 2 in 2021 and now a TIA in 2022. ADLs prior to admission: Has help with dressing in the am, and just got back to driving in the last 6 months. Uses DME for ambulation. DME used: Reports to have a cane, and a rollator (in room) ? Mental Health History and Current Cognitive Status Diagnoses: Reports depression, anxiety, and PTSD from . PHQ9: PHQ9 completed due to possible TIA diagnosis. Patient has underlying depression and anxiety. Score is a 7 now, showing mild depression. Already active with Dr. Ashraf, per patient's report. Patient reports medications are working well, and to take as prescribed. Denies any SI/HI. Treatment History: Reports to be current with Dr. Ashraf. Medications: Aripiprazole, Diazepam, Doxepin, and Sertraline. ? Current Cognitive/Mental Status: During assessment patient alert and oriented, appeared to have good recall of past medical events as evidenced by this copy writer's historical chart review. Patient with good eye contact, full affect, and mood appearing stable. ? Patient?s Identified Concerns: Denies any concerns with home going and reports to feel to have adequate support. ? Interventions: Educated to [facility] Stroke support group. Patient would like to be added to mailing list. This copy writer sent message to facilitating support group regarding mailing list. Provided list of counselors in case patient decides would like to increase support for emotional zee in the community. ?Plan: Home with family support. Patient plans to continue with outpatient therapy at [facility]; Considering Stroke support group. -SHAE Mederos
--- NOTE | 2023-07-10 12:22 | CASEMGMT ---
Patient has order for discharge. RN CM in to discuss needs at discharge. Patient states she will return home with resumption of outpatient therapy at [facility]. Patient denied further needs at discharge. Patient had no further questions or concerns.
[2023-07-10 12:34] LABS: Bedside Glucose 118 mg/dL (74-106)
--- NOTE | 2023-07-10 15:04 | CHAPLAIN ---
Type of Pastoral Visit ___ Initial Visit _x__ Follow-up Visit ___ On-call Visit ___ General Patient Visit ___ Spiritual Assessment ___ Family Conference ___ Bereavement _x__ Rapid Response ___ Code Blue ___ Other (describe below) Pastoral Care Referral From ___ Patient ___ Family ___ Nurse ___ Physician ___ Backrest Assembler ___ Attorney General _x__ Other (describe below) Sacrament/Intervention _x__ Active listening ___ Anointing ___ Amish ___ Bereavement ___ Communion ___ Ele exploration ___ _x__ Life review _x__ Prayer ___ Reconciliation ___ Sacrament of Sick _x__ Supportive presence ___ Wedding ___ Other (describe below) Pastoral Comments responded to stroke alert on 07/09 in the ED and offered support, some review of life, and prayer; follow up visit on 07/10 to find patient being prepared for discharge; offer of support given; met another family member
== END 2023-07-10 14:49 | disposition home or self-care (01) ==
LOC: ED 16:47 → PCU 17:10
PROVIDERS: Admitting Provider Family Medicine; Emergency Provider Student in an Organized Health Care Education/Training Program; PCP Internal Medicine
DX: R41.0 Disorientation, unspecified (principal); J44.9 Chronic obstructive pulmonary disease, unspecified; E11.40 Type 2 diabetes mellitus with diabetic neuropathy, unspecified; I10 Essential (primary) hypertension; E03.9 Hypothyroidism, unspecified; I25.10 Atherosclerotic heart disease of native coronary artery without angina pectoris; I65.23 Occlusion and stenosis of bilateral carotid arteries; E78.5 Hyperlipidemia, unspecified; K21.9 Gastro-esophageal reflux disease without esophagitis; K58.9 Irritable bowel syndrome, unspecified; G89.29 Other chronic pain; F32.9 Major depressive disorder, single episode, unspecified; F41.9 Anxiety disorder, unspecified; F43.10 Post-traumatic stress disorder, unspecified; M62.838 Other muscle spasm; I25.2 Old myocardial infarction; Z79.51 Long term (current) use of inhaled steroids; Z79.82 Long term (current) use of aspirin; Z86.73 Personal history of transient ischemic attack (TIA), and cerebral infarction without residual deficits; Z96.641 Presence of right artificial hip joint; Z79.84 Long term (current) use of oral hypoglycemic drugs; Z79.899 Other long term (current) drug therapy; Z87.820 Personal history of traumatic brain injury; Z85.41 Personal history of malignant neoplasm of cervix uteri; Z85.3 Personal history of malignant neoplasm of breast
CPT/HCPCS: 36415; 70450; 70551; 71045; 80048; 80061; 82962; 84484; 85025; 85610; 85730; 93005; 93306; 93880; 94762; 97162; 97166; 99221; 99284; A4216; G0378

== ENCOUNTER 2023-07-17 02:41 | Emergency (ER) | payer MEDICARE, MEDICAID, SELFPAY ==
[2023-07-17 02:43] VITALS: BP 82/62; PULSE 94; RESP 19; TEMP 35.9; O2SAT 88; BMI 33.5
[2023-07-17 02:46] VITALS: O2SAT 93
--- NOTE | 2023-07-17 02:49 | ED.VIS.DYS ---
HPI History of Present Illness Chief Complaint: Shortness of Breath PFSH PFSH Medical History Arm weakness Asthma CAD (coronary artery disease) Carotid artery disease COPD (chronic obstructive pulmonary disease) Dyslipidemia GERD (gastroesophageal reflux disease) Grand mal seizure Heart attack Heart failure History of back problems History of breast cancer History of cervical cancer History of COPD History of migraine History of seizures Hx of cardiac murmur Hx of chronic arthritis Hx of chronic bronchitis Hx of emotional problems Hx of hearing loss Hx of hypoglycemia Hx of seasonal allergies Hypotension Leg weakness Major depressive disorder Paroxysmal SVT (supraventricular tachycardia) Posttraumatic stress disorder Prediabetes Stroke-like symptoms TBI (traumatic brain injury) TIA (transient ischemic attack) Vocal cord polyp Wears glasses Home Medications albuterol sulfate 90 mcg/actuation aerosol inhaler (Ventolin HFA) 90 mcg inhalation Q4H PRN SHORTNESS OF BREATH 05/25/22 [History Last Taken Unknown] omeprazole 40 mg capsule,delayed release 40 mg PO BID ACID REFLUX 05/25/22 [History Last Taken 07/09/23] simvastatin 40 mg tablet 40 mg PO QHS CHOLESTEROL 05/25/22 [History Last Taken 07/08/23] aspirin 81 mg tablet,delayed release (Adult Low Dose Aspirin) 81 mg PO DAILY HEART HEALTH 06/26/22 [History Last Taken 07/09/23] handicap placard #1 ea 07/23/22 [Rx Last Taken Unknown] miscellaneous medical supply #2 ea 08/16/22 [Rx Last Taken Unknown] diclofenac sodium 75 mg tablet,delayed release 75 mg PO BID PAIN #60 tabs 02/12/23 [Rx Last Taken 07/09/23] hydrocodone 10 mg-acetaminophen 325 mg tablet 1 tab PO Q6H PRN PAIN 02/18/23 [History Last Taken 07/09/23] cyclobenzaprine 10 mg tablet 20 mg PO 4X/DAY MUSCLE SPASMS 02/28/23 [History Last Taken 07/09/23] diazepam 5 mg tablet 5 mg PO DAILY PRN ANXIETY #30 tabs 05/07/23 [Rx Last Taken Unknown] sertraline 50 mg tablet 50 mg PO DAILY DEPRESSION/ANXIETY #90 tabs 05/15/23 [Rx Last Taken 07/09/23] levothyroxine 88 mcg tablet 88 mcg PO QHS THYROID 05/24/23 [History Last Taken 07/08/23] benzonatate 100 mg capsule 200 mg PO DAILY COUGH 06/04/23 [History Last Taken 07/09/23] budesonide-formoterol HFA 160 mcg-4.5 mcg/actuation aerosol inhaler (Symbicort) 2 puff inhalation BID PRN COPD 06/04/23 [History Last Taken Unknown] gabapentin 300 mg capsule 600 mg PO .COMPLEX NEUROPATHY 06/04/23 [History Last Taken 07/09/23] methocarbamol 750 mg tablet 750 mg PO 4X/DAY MUSCLE SPASMS/PAIN 06/04/23 [History Last Taken 07/09/23] phentermine 37.5 mg tablet 37.5 mg PO DAILY WEIGHT LOSS 06/04/23 [History Last Taken 07/09/23] aripiprazole 5 mg tablet 5 mg PO QHS DEPRESSION 07/09/23 [History Last Taken 07/08/23] dicyclomine 20 mg tablet 20 mg PO 4X/DAY IRRITABLE BOWELS 07/09/23 [History Last Taken 07/09/23] doxepin 10 mg capsule 10 mg PO QHS DEPRESSION 07/09/23 [History Last Taken 07/08/23] gabapentin 300 mg capsule 300 mg PO QHS 07/09/23 [History Last Taken Unknown] metformin 500 mg tablet 500 mg PO QHS DIABETES 07/09/23 [History Last Taken 07/08/23] promethazine 25 mg tablet 25 mg PO Q6H PRN NAUSEA/VOMITING 07/09/23 [History Last Taken 07/08/23] prazosin 2 mg capsule 2 mg PO QHS 90 days #90 caps 07/15/23 [Rx Last Taken Unknown] prazosin 2 mg capsule 2 mg PO QHS nightmares #30 caps 07/15/23 [Rx Last Taken Unknown] prednisone 20 mg tablet 40 mg (2 x 20 mg) PO DAILY 5 days #10 tabs 07/17/23 [Rx Last Taken Unknown] Allergy/AdvReac Type Severity Reaction Status Date / Time divalproex sodium Allergy Angioedema Verified 07/15/23 10:02 [From Depakote] Influenza Virus Vaccines Allergy Angioedema Verified 07/15/23 10:02 [flu shot] phenytoin [From Dilantin] Allergy Hives Verified 07/15/23 10:02 Iodinated Contrast Media AdvReac Intermediate Angioedema Verified 07/15/23 10:02 Latex, Natural Rubber AdvReac Swelling Verified 07/15/23 10:02 meloxicam AdvReac Other Verified 07/15/23 10:02 oxybutynin [From Ditropan] AdvReac Swelling Verified 07/15/23 10:02 pravastatin AdvReac Swelling Verified 07/15/23 10:02 tetracycline AdvReac Itching Verified 07/15/23 10:02 tramadol AdvReac Other Verified 07/15/23 10:02 Family History Other Adopted Surgical History History of total right hip replacement Hx of cholecystectomy S/P ALLAN (total abdominal hysterectomy) Social History household members: other details: Living with her keya. 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 Smoking Status: Never smoker Electronic Cigarette Use: not used alcohol intake: never substance use type: does not use caffeine: Yes Type: coffee Number of servings: 1 do you feel safe at home: Yes EXAM Physical Exam Const Vital Signs: 07/17/23 02:43 07/17/23 02:46 Temperature 96.6 F L Temperature Source Temporal Pulse Rate 94 Respiratory Rate 19 H Respiratory Effort Short of Breath Respiratory Depth Deep Respiratory Pattern Tachypnea Blood Pressure 82/62 L Blood Pressure Mean 68 Pulse Ox 88 Oxygen Delivery Method Room Air Nasal Cannula Oxygen Flow Rate (L/min) 2 MDM MDM MDM Narrative Medical decision making narrative: HISTORY OF PRESENT ILLNESS: 68-year-old female here with concern for shortness of breath. She states she had increased shortness breath of the last day. Notes pain she was at home are not helping. Also similar to prior COPD exacerbations. Notes cough productive of white phlegm. Denies any recent fever chills. Nausea vomiting. No recent volume loss. No palpitations The patient denies recent surgery in the last 4 weeks or immobilization in the last 3 days, denies previous diagnosis of DVT or PE, hemoptysis, unilateral leg swelling or malignancy with treatment the last 6 months or palliative. No estrogen use noted. REVIEW OF SYSTEMS: Pertinent positives: Shortness breath, cough Pertinent negatives: Pain PHYSICAL EXAM: Nursing triage notes reviewed, Vital signs reviewed Constitutional: please see mdm HENT: MMM Eyes: Pupils equal round and reactive to light, Extraocular muscles intact Neck: No stridor, no JVD, full neck ROM Lungs: Bilateral expiratory wheezing, no increased work of breathing, no conversational dyspnea, no respiratory distress Heart: Regular rate and rhythm, No murmurs, No rubs and No gallops, 2+ distal pulses (radial, femoral, posterior tibial) in all extremities Abdomen: Soft, there is no tenderness, rigidity, rebound or guarding, no obvious peritoneal signs, no palpable pulsatile abdominal masses, no auscultated abdominal bruit : No CVAT Extremities: No edema Neuro: No focal neurological deficits, cranial nerves II through XII intact, 5/5 strength in all extremities. Intact sensation to light touch in all extremities, 2+ reflexes bilateral patella tendons. Normal gait. No ataxia. Skin: No rash or lesions noted MEDICAL DECISION MAKING: Chief Complaint: Shortness of breath External records reviewed: Vital sign records reviewed. Patient typically has soft blood pressures typical blood pressure is in the low 100s to high 80s systolic. Echocardiogram from 07/10/2023 shows an ejection fraction 65% Factors affecting care: COPD, CAD, hyperlipidemia, depression, GERD, migraine Social determinants of health: History of depression History obtained from others: none Consults: none [facility] Narrative: Patient was initially hypotensive however this is consistent with baseline, afebrile, nontoxic-appearing. Exam consistent with COPD exacerbation with bilateral expiratory wheezing. Patient was started on breathing treatments and given steroids empirically. I considered the following differential diagnosis: COPD exacerbation, pneumonia, arrhythmia, anemia, COVID, flu, PE ALL IMAGES (IF OBTAINED) HAVE BEEN PERSONALLY REVIEWED AND INTERPRETED BY MYSELF. EKG with normal sinus rhythm, left axis deviation, prolonged QT, no STEMI CBC with no leukocytosis to suggest systemic inflammation, stable anemia, no thrombocytopenia BMP without evidence of significant electrolyte abnormalities, no anion gap, no acute kidney injury. Troponin is negative, no evidence of myocardial ischemia I have personally reviewed the patient's chest x-ray. Chest x-ray is unremarkable for pulmonary edema, pneumothorax, pneumonia or focal cardiopulmonary abnormality. COVID flu negative Repeat lung exam with improved wheezing. Patient appeared calm with noted symptomatic improvement. She was satting well without oxygen in the ED to 92% range which is appropriate with COPD. Patient's blood pressure was consistent with prior studies. Reported consistent with patient's understanding what her baseline blood pressure. The synthesis of the patient's labs, images, physical exam and history are consistent with likely COPD exacerbation. No signs of heart failure, ACS. Low risk Wells score suggest n low risk for PE. No evidence of significant anemia. The patient was given a prescription for prednisone and strict return precautions. The patient and/or family, caregivers express understanding. The patient and/or family, caregivers agrees with the plan. Shared decision making: I will have a discussion with the patient and or visitors regarding risk/benefits of further testing or admission. They will be made aware of of the risk/benefits inherent in this decision they will be given the opportunity to voice understanding. Total critical care time today provided was at least 0 minutes. This excludes separately billable procedures. Critical care time (if documented) is secondary to the patient having high probability of clinically significant/life threatening deterioration in the patient's condition which required my urgent intervention. Impression: 1. Dyspnea 2. COPD exacerbation 3. Chronic hypotension Dispo: Discharge home Lab Data Labs: Laboratory Results - last 24 hr 07/17/23 04:11 WBC 3.6 L RBC 2.86 L Hgb 8.2 L Hct 26.5 L MCV 92.7 MCH 28.7 MCHC 30.9 L RDW Std Deviation 57.6 H RDW Coeff of Arti 17.2 H Plt Count 259 MPV 9.7 Immature Gran % (Auto) 0.300 Neut % (Auto) 49.5 Lymph % (Auto) 35.8 Delta % (Auto) 11.8 H Eos % (Auto) 2.3 Baso % (Auto) 0.3 Absolute Neuts (auto) 1.8 L Absolute Lymphs (auto) 1.27 Nucleated RBC % 0 Sodium 139 Potassium 3.4 L Chloride 107 Carbon Dioxide 26.0 Anion Gap 6 BUN 9 Creatinine 0.80 Estim Creat Clear Calc 63.01 Est GFR (MDRD) Af Amer 92 Est GFR (MDRD) Non-Af 76 BUN/Creatinine Ratio 11.3 Glucose 126 H Calcium 7.9 L Troponin I High Sens 6 B-Natriuretic Peptide 79.6 Radiography Diagnostic Testing: Clinical Impression(s) from Imaging Studies Chest X-Ray 07/17/23 03:12 IMPRESSION: No radiographic evidence of acute cardiopulmonary disease. Electronically Signed: Himanshu Aguirre MD at 3:36 EST , Discharge Plan Triage Chief Complaint: Shortness of Breath ED Provider: Trung Amaral Dx/Rx/DC Orders Clinical Impression: COPD (chronic obstructive pulmonary disease) Instructions: COPD Meds Prescriptions: New prednisone 20 mg tablet 40 mg PO DAILY 5 Days Qty: 10 0RF No Action aspirin [Adult Low Dose Aspirin] 81 mg tablet,delayed release (DR/EC) 81 mg PO DAILY (DME) handicap placard See Rx Instructions .ROUTE .MEDSUPPLY Qty: 1 0RF Rx Instructions: Length of time: 3 years (DME) miscellaneous medical supply Misc See Rx Instructions .Route Qty: 2 0RF Rx Instructions: As directed cyclobenzaprine 10 mg tablet 20 mg PO 4X/DAY hydrocodone-acetaminophen 10-325 mg tablet 1 tab PO Q6H PRN (Reason: PAIN ) sertraline 50 mg tablet 50 mg PO DAILY Qty: 90 3RF levothyroxine 88 mcg tablet 88 mcg PO QHS benzonatate 100 mg capsule 200 mg PO DAILY budesonide-formoterol [Symbicort] 160-4.5 mcg/actuation HFA aerosol inhaler 2 puff inhalation BID PRN (Reason: COPD) gabapentin 300 mg capsule 600 mg PO .COMPLEX Rx Instructions: 600 mg orally daily in the AM; TAKE TWO IN THE AM AND ONE AT HS phentermine 37.5 mg tablet 37.5 mg PO DAILY prazosin 2 mg capsule 2 mg PO QHS Qty: 30 0RF prazosin 2 mg capsule 2 mg PO QHS 90 Days Qty: 90 0RF omeprazole 40 mg Capsule,Delayed Release(Dr/Ec) 40 mg PO BID simvastatin 40 mg Tablet 40 mg PO QHS albuterol sulfate [Ventolin HFA] 90 mcg/actuation Hfa Aerosol Inhaler 90 mcg INHALATION Q4H PRN (Reason: SHORTNESS OF BREATH ) methocarbamol 750 mg tablet 750 mg PO 4X/DAY doxepin 10 mg capsule 10 mg PO QHS aripiprazole 5 mg tablet 5 mg PO QHS metformin 500 mg tablet 500 mg PO QHS promethazine 25 mg tablet 25 mg PO Q6H PRN (Reason: NAUSEA/VOMITING ) dicyclomine 20 mg tablet 20 mg PO 4X/DAY gabapentin 300 mg capsule 300 mg PO QHS diclofenac sodium 75 mg tablet,delayed release (DR/EC) 75 mg PO BID Qty: 60 0RF diazepam 5 mg tablet 5 mg PO DAILY PRN (Reason: ANXIETY ) Qty: 30 0RF Primary Care Provider: Glenis Paula NP Referrals: Glenis Paula SWITCHBOARD RECEPTIONIST, SWITCHBOARD RECEPTIONIST-C [Primary Care Provider] -
[2023-07-17 03:12] VITALS: O2SAT 89
--- NOTE | 2023-07-17 03:12 | EKG12_ITS ---
Test Reason : DYSRHYTHMIA Blood Pressure : / mmHG Vent. Rate : 086 BPM Atrial Rate : 086 BPM P-R Int : 124 ms QRS Dur : 100 ms QT Int : 408 ms P-R-T Axes : 032 -15 001 degrees QTc Int : 488 ms Normal sinus rhythm Low voltage QRS Cannot rule out Anterior infarct , age undetermined Abnormal ECG Confirmed by ROSE MARIE BREWER, FARZANA ([id number]), scientific publications editor FLORENCIO SUTTON ([id number]) on 07/24/2023 10:46:38 AM Referred By: HELLEN Confirmed By:FARZANA TROTTER MD
--- NOTE | 2023-07-17 03:12 | RAD_ITS ---
EXAM: XR CHEST, 1 VIEW CLINICAL INDICATION: SOB TECHNIQUE: Frontal view of the chest. COMPARISON: 07/09/2023. FINDINGS: LUNGS AND PLEURAL SPACES: Unremarkable. No consolidation or edema. No pneumothorax. No effusion. HEART: Unremarkable. Cardiac silhouette not enlarged. MEDIASTINUM: Central airways and mediastinal contour are unremarkable. BONES/JOINTS: Unremarkable. SOFT TISSUES: Unremarkable. RAD/Chest 1 View (Portable) IMPRESSION: No radiographic evidence of acute cardiopulmonary disease. Electronically Signed: Himanshu Aguirre MD at 3:36 EST ,
[2023-07-17] MEDS: Ipratropium/Albuterol Sulfate 3 ML AMPUL.NEB INHALATION ×3 (03:22→05:08)
[2023-07-17] MEDS: MethylPREDNISolone 125 MG/2 ML Vial IV (04:11)
[2023-07-17 04:24] LABS: Absolute Lymphocyte Count 1.27 X10^3/uL (0.83-4.51); Absolute Neutrophil Count 1.8 X10^3/uL (2.0-7.7); Basophil# 0.01 X10^3/uL; Basophil% 0.3 % (0-1); Eosinophil# 0.08 X10^3/uL; Eosinophils% 2.3 % (0-5); Hematocrit 26.5 % (37-47); Hemoglobin 8.2 g/dL (12.0-15.0); Lymphocyte # 1.27 X10^3/ul (0.83-4.51); Lymphocyte % 35.8 % (19-41); Mean Corp Hgb Conc 30.9 g/dL (32-36); Mean Corpuscular Hgb 28.7 pg (27.0-32.0); Mean Corpuscular Volume 92.7 fL (81-99); Mean Platelet Vol. 9.7 fl (6.2-12.0); Monocyte# 0.42 X10^3/uL; Monocyte% 11.8 % (0-10); NRBC Flagged by Analyzer 0 % (0-5); Neutrophil # 1.76 X10^3/uL (2.7-7.7); Neutrophil % 49.5 % (47-70); Platelet Count 259 K/mm3 (150-450); RBC Distribution Width CV 17.2 % (11.6-14.6); RBC Distribution Width SD 57.6 fl (35.1-43.9); Red Blood Count 2.86 M/mm3 (4.2-5.4); White Blood Count 3.6 K/mm3 (4.4-11.0)
[2023-07-17 04:43] LABS: Anion Gap 6 (5-15); BUN 9 mg/dL (7-18); BUN/Creat Ratio 11.3 RATIO (10-20); Calcium,Total 7.9 mg/dL (8.5-10.1); Chloride 107 mmol/L (98-107); EST Glomerular Filtration Rate 76 mL/min (>60); Est Glom Filt Rate - Afr Amer 92 mL/min (>60); Estimated Creatinine Clearance 63.01 ml/min; Glucose 126 mg/dL (74-106); Potassium 3.4 mmol/L (3.5-5.1); Sodium Level 139 mmol/L (136-145); Troponin-I HS 6 pg/mL (3.0-54.0)
[2023-07-17 05:14] LABS: BNP,B-Type NATRIURETIC PEPTIDE 79.6 pg/mL (0-100)
--- NOTE | 2023-07-17 05:32 | CPS ---
[0445] Pt. given x2 Duoneb during this time. Pt.'s wheezing has subsided, as well as clearer breath sounds. Pt. claims to feel much better now.
[2023-07-17 05:39] VITALS: PULSE 92; RESP 12; O2SAT 90
== END 2023-07-17 06:14 | disposition home or self-care (01) ==
PROVIDERS: Emergency Provider Emergency Medicine; PCP Internal Medicine; Visit Provider Emergency Medicine
DX: R06.00 Dyspnea, unspecified (principal); J44.1 Chronic obstructive pulmonary disease with (acute) exacerbation; I50.9 Heart failure, unspecified; I95.89 Other hypotension; I25.10 Atherosclerotic heart disease of native coronary artery without angina pectoris; Z86.73 Personal history of transient ischemic attack (TIA), and cerebral infarction without residual deficits
CPT/HCPCS: 71045; 80048; 83880; 84484; 85025; 87428; 93005; 96374; 99285; A4216

== ENCOUNTER 2023-10-11 13:49 | Emergency (ER) | payer MEDICARE, MEDICAID, SELFPAY ==
[2023-10-11 13:53] VITALS: BP 75/50; PULSE 59; RESP 18; TEMP 36.4; O2SAT 96
--- NOTE | 2023-10-11 14:35 | EX.ED.DYSGE1 ---
HPI History of Present Illness Chief Complaint: Weakness Informant: patient Onset/Context/Timing Onset: Days (2) Context: Gradual Onset Timing: Continuous Quality: Weakness Location: Right arm and leg Worsened by: Nothing Relieved by: Heating pad Narrative Narrative: Patient presents with slurred speech and right-sided weakness that has been constant for the past 2 days. Patient states it came on gradually. Patient states it is mainly in her right arm and right leg. Patient states she has been having some slurring speech. Friend states that she has not been sleeping well over the past week. Patient does admit to a mild headache. Patient also admits to some shortness of breath. Patient denies any chest pain. Patient denies any nausea or vomiting. Patient denies any visual changes. [facility] Medical History Arm weakness Asthma CAD (coronary artery disease) Carotid artery disease COPD (chronic obstructive pulmonary disease) Dyslipidemia GERD (gastroesophageal reflux disease) Grand mal seizure Heart attack Heart failure History of back problems History of breast cancer History of cervical cancer History of COPD History of migraine History of seizures Hx of cardiac murmur Hx of chronic arthritis Hx of chronic bronchitis Hx of emotional problems Hx of hearing loss Hx of hypoglycemia Hx of seasonal allergies Hypotension Leg weakness Major depressive disorder Paroxysmal SVT (supraventricular tachycardia) Posttraumatic stress disorder Prediabetes Stroke Stroke-like symptoms TBI (traumatic brain injury) Vocal cord polyp Wears glasses Home Medications albuterol sulfate 90 mcg/actuation aerosol inhaler (Ventolin HFA) 90 mcg inhalation Q4H PRN SHORTNESS OF BREATH 05/25/22 [History Last Taken Unknown] omeprazole 40 mg capsule,delayed release 40 mg PO BID ACID REFLUX 05/25/22 [History Last Taken 07/09/23] simvastatin 40 mg tablet 40 mg PO QHS CHOLESTEROL 05/25/22 [History Last Taken 07/08/23] aspirin 81 mg tablet,delayed release (Adult Low Dose Aspirin) 81 mg PO DAILY HEART HEALTH 06/26/22 [History Last Taken 07/09/23] handicap placard #1 ea 07/23/22 [Rx Last Taken Unknown] miscellaneous medical supply #2 ea 08/16/22 [Rx Last Taken Unknown] diclofenac sodium 75 mg tablet,delayed release 75 mg PO BID PAIN #60 tabs 02/12/23 [Rx Last Taken 07/09/23] hydrocodone 10 mg-acetaminophen 325 mg tablet 1 tab PO Q6H PRN PAIN 02/18/23 [History Last Taken 07/09/23] cyclobenzaprine 10 mg tablet 20 mg PO 4X/DAY MUSCLE SPASMS 02/28/23 [History Last Taken 07/09/23] sertraline 50 mg tablet 50 mg PO DAILY DEPRESSION/ANXIETY #90 tabs 05/15/23 [Rx Last Taken 07/09/23] levothyroxine 88 mcg tablet 88 mcg PO QHS THYROID 05/24/23 [History Last Taken 07/08/23] benzonatate 100 mg capsule 200 mg PO DAILY COUGH 06/04/23 [History Last Taken 07/09/23] methocarbamol 750 mg tablet 750 mg PO 4X/DAY MUSCLE SPASMS/PAIN 06/04/23 [History Last Taken 07/09/23] phentermine 37.5 mg tablet 37.5 mg PO DAILY WEIGHT LOSS 06/04/23 [History Last Taken 07/09/23] dicyclomine 20 mg tablet 20 mg PO 4X/DAY IRRITABLE BOWELS 07/09/23 [History Last Taken 07/09/23] doxepin 10 mg capsule 10 mg PO QHS DEPRESSION 07/09/23 [History Last Taken 07/08/23] promethazine 25 mg tablet 25 mg PO Q6H PRN NAUSEA/VOMITING 07/09/23 [History Last Taken 07/08/23] budesonide 0.5 mg/2 mL suspension for nebulization mg inhalation DAILY PRN 09/12/23 [History Last Taken Unknown] epinephrine 0.3 mg/0.3 mL injection, auto-injector IM ONCE PRN 09/12/23 [History Last Taken Unknown] fluticasone fur. 200 mcg-umeclid 62.5 mcg-vilant 25 mcg inhalat.powder (Trelegy Ellipta) inhalation 09/12/23 [History Last Taken Unknown] furosemide 20 mg tablet mg PO 09/12/23 [History Last Taken Unknown] gabapentin 300 mg capsule 600 mg PO .COMPLEX NEUROPATHY 09/12/23 [History Last Taken Unknown] montelukast 10 mg tablet mg PO 09/12/23 [History Last Taken Unknown] aripiprazole 5 mg tablet 5 mg PO QHS DEPRESSION #14 tabs 09/19/23 [Rx Last Taken Unknown] diazepam 5 mg tablet 5 mg PO DAILY PRN ANXIETY #14 tabs 09/19/23 [Rx Last Taken Unknown] prazosin 2 mg capsule 2 mg PO QHS 90 days #90 caps 09/19/23 [Rx Last Taken Unknown] prazosin 2 mg capsule 2 mg PO QHS nightmares #14 caps 09/19/23 [Rx Last Taken Unknown] Allergy/AdvReac Type Severity Reaction Status Date / Time divalproex sodium Allergy Angioedema Verified 10/11/23 13:53 [From Depakote] Influenza Virus Vaccines Allergy Angioedema Verified 10/11/23 13:53 [flu shot] phenytoin [From Dilantin] Allergy Hives Verified 10/11/23 13:53 Iodinated Contrast Media AdvReac Intermediate Angioedema Verified 10/11/23 13:53 Latex, Natural Rubber AdvReac Swelling Verified 10/11/23 13:53 meloxicam AdvReac Other Verified 10/11/23 13:53 oxybutynin [From Ditropan] AdvReac Swelling Verified 10/11/23 13:53 pravastatin AdvReac Swelling Verified 10/11/23 13:53 tetracycline AdvReac Itching Verified 10/11/23 13:53 tramadol AdvReac Other Verified 10/11/23 13:53 Family History (Reviewed 09/12/23 @ 14:33 by Naomi Barton [employer], [employer] STITCH-C) Other Adopted Surgical History History of total right hip replacement Hx of cholecystectomy S/P ALLAN (total abdominal hysterectomy) Social History household members: other details: Living with her keya. 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 Smoking Status: Never smoker Electronic Cigarette Use: not used alcohol intake: never substance use type: does not use caffeine: Yes Type: coffee Number of servings: 1 do you feel safe at home: Yes ROS ROS ED Constitutional Constitutional ED: Denies chills or fever(s) Eyes Eyes: Denies blurry vision or change in vision ENT ENT ED: Denies rhinorrhea or sore throat Cardiovascular Cardiovascular: Denies chest pain or palpitations Respiratory/Chest Respiratory/Chest: Reports dyspnea; Denies cough Gastrointestinal Gastrointestinal: Denies nausea or vomiting Genitourinary Genitourinary ED: Denies dysuria or hematuria Musculoskeletal Musculoskeletal: Reports back pain; Denies neck pain Integumentary Denies abscess or rash Neurologic Neurologic: Reports headache(s); Denies weakness Allergic/Immunologic Allergic/Immunologic ED: Denies mouth swelling or urticaria EXAM Physical Exam Const Vital Signs: 10/11/23 13:53 10/11/23 14:45 10/11/23 16:00 Temperature 97.6 F L Temperature Source Temporal Pulse Rate 59 L 54 L Respiratory Rate 18 12 Respiratory Effort Normal Respiratory Pattern Normal Blood Pressure 75/50 L 118/84 H Blood Pressure Mean 58 95 Pulse Ox 96 99 Oxygen Delivery Method Room Air Room Air 10/11/23 18:00 Temperature Temperature Source Pulse Rate 54 L Respiratory Rate 16 Respiratory Effort Respiratory Pattern Blood Pressure 128/83 H Blood Pressure Mean 98 Pulse Ox 97 Oxygen Delivery Method Room Air Positive well nourished and well developed General Appearance ED: well developed and NAD HEENT Reports moist mucous membranes Eyes PERRL and EOMs intact bilaterally Eyes Narrative: There was no nystagmus noted. Neck supple and no JVD Resp normal respiratory effort and clear to auscultation bilaterally Cardio regular rate and regular rhythm GI non-tender and non-distended Palpation: soft Extremity normal to inspection General Extremety ED: Negative for edema or tenderness General Extremity: Negative for edema Neuro oriented x3, CN's II-XII intact bilaterally and no sensory deficits noted Neuro Narrative: There was a slight weakness to the left upper extremity. Patient was able to hold the right upper extremity straight out for 10 seconds. The left upper extremity started to fall but did not fall to the bed within 10 seconds. Patient was able to hold up both lower extremities off of the bed for 5 seconds. Sensorium / Orientation: alert Psych mental status grossly normal MDM MDM MDM Narrative Medical decision making narrative: Since the patient's symptoms began 2 days ago, stroke alert was not called. Differential diagnosis includes stroke, intracranial bleeding, cardiac dysrhythmia, cardiac ischemia, electrolyte abnormality, and infection. EKG will be obtained to assess for cardiac dysrhythmia and cardiac ischemia. Chest x-ray will be obtained to assess for pneumonia and pneumothorax. CT scan of the brain will be obtained to assess for stroke and intracranial bleeding. COVID-19, influenza, and RSV PCR will be obtained to assess for viral infection. CBC will be obtained to assess for leukocytosis and anemia. Comprehensive metabolic profile will be obtained to assess for hepatic function, renal function, and electrolyte abnormality. PT with INR and PTT will be obtained to assess for coagulopathy. Lactate will be obtained to assess for sepsis. Urinalysis will be obtained to assess for urinary tract infection and hematuria. High-sensitivity troponin will be obtained to assess for cardiac ischemia. Lab Data Attestation: I reviewed the patient's lab results. Lab results narrative: CBC was reviewed. There is a mild anemia with a hemoglobin of 9.0 hematocrit 29.9. This is consistent with prior results. Comprehensive metabolic profile was reviewed and was within normal limits. PT was INR and PTT were reviewed and were essentially within normal limits. High-sensitivity troponin was reviewed and was normal at 6. Lactate was reviewed and was normal at 1.2. Urinalysis was reviewed. There is no evidence of urinary tract infection or hematuria. Labs: Laboratory Results - last 24 hr 10/11/23 10/11/23 15:30 18:40 WBC 4.9 RBC 3.24 L Hgb 9.0 L Hct 29.9 L MCV 92.3 MCH 27.8 MCHC 30.1 L RDW Std Deviation 52.6 H RDW Coeff of Arti 15.6 H Plt Count 252 MPV 9.8 Immature Gran % (Auto) 0.200 Neut % (Auto) 52.0 Lymph % (Auto) 35.7 [place] % (Auto) 8.6 Eos % (Auto) 2.9 Baso % (Auto) 0.6 Absolute Neuts (auto) 2.6 Absolute Lymphs (auto) 1.75 Nucleated RBC % 0 PT 12.3 INR 0.9 APTT 23.7 L Sodium 135 L Potassium 4.4 Chloride 105 Carbon Dioxide 25.0 Anion Gap 5 BUN 14 Creatinine 1.05 H Estim Creat Clear Calc 58.79 Est GFR (MDRD) Af Amer 67 Est GFR (MDRD) Non-Af 55 L BUN/Creatinine Ratio 13.3 Glucose 95 Lactic Acid 1.2 Calcium 8.1 L Total Bilirubin 0.30 AST 24 ALT 26 Alkaline Phosphatase 156 H Troponin I High Sens 6 Total Protein 6.3 L Albumin 3.5 Globulin 2.8 Albumin/Globulin Ratio 1.2 Urine Color Yellow Urine Clarity Clear Urine pH 6.0 Ur Specific [place] 1.015 Urine Protein Negative Urine Glucose (UA) Normal Urine Ketones Negative Urine Occult Blood Negative Urine Nitrite Negative Urine Bilirubin Negative Urine Urobilinogen Normal Ur Leukocyte Esterase 25 H Urine RBC 0 SEEN Urine WBC 0-5 SEEN Ur Squamous Epith Cells 5-10 SEEN Urine Bacteria 0 SEEN Urine Mucus 0 SEEN Radiography Chest X-Ray - ED: 1 View, Read by ED Physician, Read by Radiologist and No Acute Disease Diagnostic Testing: Clinical Impression(s) from Imaging Studies Brain CT 10/11/23 14:47 IMPRESSION: Normal unenhanced CT scan of the brain. Electronically Signed: Malcolm Hankins MD at 16:37 EST , CT scan of the brain was obtained. There is no acute intracranial abnormality. This was interpreted by the radiologist and was also independently reviewed by myself. Portable 1 view chest x-ray was obtained. On my independent interpretation, lung angelo are clear. There is normal cardiac silhouette. Bony thorax is normal. There is no acute process noted. Radiologist also interpreted the x-ray and agrees. EKG Initial EKG: Attestation: I personally reviewed and interpreted this EKG as follows: Interpretation: No Acute Injury Pattern and Sinus Bradycardia (54) Comments: EKG was obtained. On my independent interpretation, it showed a sinus bradycardia with a rate of 54. RI interval, QRS interval, and QTc intervals were all normal. [place] was normal. There are no acute ST or T wave changes. Prior EKG tracings: available for review Prior: Unchanged (07/17/2023) Treatment and Re-Evaluation :: Patient was given IV fluids. Patient's blood pressure improved to 128/83. Patient was advised of her findings. Patient feels better and wants to go home. Patient was advised that this could be from dehydration. Patient was instructed to drink plenty of fluids. Patient was instructed to follow-up with her primary care physician in 5 to 7 days. Patient understood and was agreeable with the plan. All questions were answered. Discharge Plan Triage Chief Complaint: Weakness ED Provider: Misael Ramirez Dx/Rx/DC Orders Clinical Impression: General weakness, Dehydration Instructions: ED Dehydration (Adult), ED Weakness (Uncertain Cause) Prescriptions: No Action aspirin [Adult Low Dose Aspirin] 81 mg tablet,delayed release (DR/EC) 81 mg PO DAILY (DME) handicap shukriard See Rx Instructions .ROUTE .MEDSUPPLY Qty: 1 0RF Rx Instructions: Length of time: 3 years (DME) [place] [facility] [place] .Route Qty: 2 0RF Rx Instructions: As directed cyclobenzaprine 10 mg tablet 20 mg PO 4X/DAY hydrocodone-acetaminophen 10-325 mg tablet 1 tab PO Q6H PRN (Reason: PAIN ) sertraline 50 mg tablet 50 mg PO DAILY Qty: 90 3RF budesonide 0.5 mg/2 mL suspension for nebulization inhalation DAILY PRN Patient Comments: INHALE 2ML BY NEBULIZER 2 TIMES A DAY montelukast 10 mg tablet PO furosemide 20 mg tablet PO epinephrine 0.3 mg/0.3 mL auto-injector IM ONCE PRN Patient Comments: INJECT SYRINGE DIRECTED FOR ALLERGIC REACTION Trelegy Ellipta 200-62.5-25 mcg blister with device inhalation Patient Comments: INHALE 1 PUFF BY MOUTH EVERY DAY INSTRUCTED levothyroxine 88 mcg tablet 88 mcg PO QHS benzonatate 100 mg capsule 200 mg PO DAILY phentermine 37.5 mg tablet 37.5 mg PO DAILY gabapentin 300 mg capsule 600 mg PO .COMPLEX Rx Instructions: 600 mg orally daily with meals omeprazole 40 mg Capsule,Delayed Release(Dr/Ec) 40 mg PO BID simvastatin 40 mg Tablet 40 mg PO QHS albuterol sulfate [Ventolin HFA] 90 mcg/actuation Hfa Aerosol Inhaler 90 mcg INHALATION Q4H PRN (Reason: SHORTNESS OF BREATH ) methocarbamol 750 mg tablet 750 mg PO 4X/DAY doxepin 10 mg capsule 10 mg PO QHS promethazine 25 mg tablet 25 mg PO Q6H PRN (Reason: NAUSEA/VOMITING ) dicyclomine 20 mg tablet 20 mg PO 4X/DAY diclofenac sodium 75 mg tablet,delayed release (DR/EC) 75 mg PO BID Qty: 60 0RF prazosin 2 mg capsule 2 mg PO QHS 90 Days Qty: 90 0RF aripiprazole 5 mg tablet 5 mg PO QHS Qty: 14 0RF diazepam 5 mg tablet 5 mg PO DAILY PRN (Reason: ANXIETY ) Qty: 14 0RF prazosin 2 mg capsule 2 mg PO QHS Qty: 14 0RF Primary Care Provider: Glenis Paula NP Referrals: Glenis Paula [employer]ITCH, [employer] STITCH-C [Primary Care Provider] - 5-7 Days Disposition Disposition: Home, Self Care
[2023-10-11 14:45] VITALS: BMI 32.9
--- NOTE | 2023-10-11 14:47 | CT_ITS ---
STUDY: CT BRAIN WITHOUT CONTRAST REASON FOR EXAM: Female, 68 years old. Deficit RADIATION DOSAGE (If Supplied By Facility): CTDIvol = ( 47.06 ) mGy, DLP = ( 855.03 ) mGycm TECHNIQUE: Transaxial CT imaging of the brain was performed without administration of intravenous contrast material. Individualized dose optimization techniques were used for this CT. COMPARISON: 07/09/2023 FINDINGS: Normal soft tissue structures. Normal calvarium. Normal size ventricles and extra-axial spaces for the patient''s age. Normal white matter tracts of the cerebral hemispheres. Normal basal ganglia and thalami. Normal brainstem. Normal cerebellum. There is no intracranial hemorrhage. There are no findings of an acute ischemic infarction. Normal visualized paranasal sinuses. CT/Brain/Head without Contrast IMPRESSION: Normal unenhanced CT scan of the brain. Electronically Signed: Malcolm Hankins MD at 16:37 EST ,
--- NOTE | 2023-10-11 14:47 | EKG12_ITS ---
Test Reason : Blood Pressure : / mmHG Vent. Rate : 054 BPM Atrial Rate : 054 BPM P-R Int : 138 ms QRS Dur : 104 ms QT Int : 484 ms P-R-T Axes : 035 -02 032 degrees QTc Int : 458 ms Sinus bradycardia Otherwise normal ECG Confirmed by Himanshu Moreno ([id number]), graphic editor FLORENCIO SUTTON ([id number]) on 10/15/2023 9:44:10 AM Referred By: Confirmed By:Himanshu Moreno
[2023-10-11] MEDS: 0.9% Normal Saline (1000mL) 1,000 ML 1000 ML IV (15:40)
--- NOTE | 2023-10-11 15:50 | RAD_ITS ---
STUDY: X-RAY CHEST REASON FOR EXAM: Female, 68 years old. Weakness TECHNIQUE: Single AP portable view of the chest. COMPARISON: 07/17/2023. FINDINGS: The lungs are clear and expanded. There is no demonstrated pleural abnormality. Normal size heart. Normal mediastinum and cash. Normal visualized pulmonary arteries. Normal visualized aortic arch and descending thoracic aorta. Probable moderate hiatal hernia. Normal visualized thoracic spine. Normal visualized ribs, clavicles, and shoulders. There is no demonstrated abnormality of the visualized soft tissue structures of the upper abdomen. RAD/Chest 1 View (Portable) IMPRESSION: No definite acute or significant abnormality seen. Electronically Signed: Malcolm Hankins MD at 16:18 EST ,
[2023-10-11 15:57] LABS: Absolute Lymphocyte Count 1.75 X10^3/uL (0.83-4.51); Absolute Neutrophil Count 2.6 X10^3/uL (2.0-7.7); Basophil# 0.03 X10^3/uL; Basophil% 0.6 % (0-1); Eosinophil# 0.14 X10^3/uL; Eosinophils% 2.9 % (0-5); Hematocrit 29.9 % (37-47); Lymphocyte # 1.75 X10^3/ul (0.83-4.51); Lymphocyte % 35.7 % (19-41); Mean Corp Hgb Conc 30.1 g/dL (32-36); Mean Corpuscular Hgb 27.8 pg (27.0-32.0); Mean Corpuscular Volume 92.3 fL (81-99); Mean Platelet Vol. 9.8 fl (6.2-12.0); Monocyte# 0.42 X10^3/uL; Monocyte% 8.6 % (0-10); NRBC Flagged by Analyzer 0 % (0-5); Neutrophil # 2.55 X10^3/uL (2.7-7.7); Platelet Count 252 K/mm3 (150-450); RBC Distribution Width CV 15.6 % (11.6-14.6); RBC Distribution Width SD 52.6 fl (35.1-43.9); Red Blood Count 3.24 M/mm3 (4.2-5.4); White Blood Count 4.9 K/mm3 (4.4-11.0)
[2023-10-11 16:00] VITALS: BP 118/84; PULSE 54; RESP 12; O2SAT 99
[2023-10-11 16:02] LABS: International Normalized Ratio 0.9; Prothrombin Time (Protime)PT. 12.3 SECONDS (11.7-14.9)
[2023-10-11 16:03] LABS: Partial Thromboplast Time 23.7 Seconds (24.1-36.2)
[2023-10-11 16:10] LABS: ALB/GLOB Ratio 1.2 RATIO (0.9-2.4); AST(SGOT) 24 U/L (15-37); Alanine Aminotransfer ALT/SGPT 26 U/L (13-56); Albumin, Serum 3.5 g/dL (3.2-5.0); Alkaline Phosphatase 156 U/L (45-117); Anion Gap 5 (5-15); BUN 14 mg/dL (7-18); BUN/Creat Ratio 13.3 RATIO (10-20); Calcium,Total 8.1 mg/dL (8.5-10.1); Chloride 105 mmol/L (98-107); Creatinine, Serum 1.05 mg/dL (0.55-1.02); EST Glomerular Filtration Rate 55 mL/min (>60); Est Glom Filt Rate - Afr Amer 67 mL/min (>60); Estimated Creatinine Clearance 58.79 ml/min; Globulin 2.8 g/dL (2.2-4.2); Glucose 95 mg/dL (74-106); Potassium 4.4 mmol/L (3.5-5.1); Protein, Total 6.3 g/dL (6.4-8.2); Sodium Level 135 mmol/L (136-145); Troponin-I HS 6 pg/mL (3.0-54.0)
[2023-10-11 16:18] LABS: Lactic Acid 1.2 mmol/L (0.4-1.9)
--- OUTSIDE RECORDS SUMMARY | 2023-10-11 17:06 | XMS RPT_ITS | CCD ---
Author Name Unknown Address [id number] [place] [address] Organization [facility] Care Team Providers Care Hand Violin Maker Name Role Phone Benito STEAM SHOVEL OPERATING ENGINEER.TELECOMMUNICATIONS CLERK, Doreen Primary Care Provider DOREEN OLIVER Referring Unavailable BENITO, DOREEN Primary Care Unavailable KAYCEE YOUNGER Attending Unavailable BENITO STEAM SHOVEL OPERATING ENGINEER-TELECOMMUNICATIONS CLERK, DORENE DEAN Primary Care Physicia n BENITO STEAM SHOVEL OPERATING ENGINEER-TELECOMMUNICATIONS CLERK, DOREEN DEAN Primary Care Unava ilable IDALMIS DIAZ MD Attending Unavailable BENITO STEAM SHOVEL OPERATING ENGINEER-TELECOMMUNICATIONS CLERK, [facility] Primary Care Unava ilable IDALMIS DIAZ MD Attending Unavailable IDALMIS DIAZ MD Attending Unavailable BENITO STEAM SHOVEL OPERATING ENGINEER-TELECOMMUNICATIONS CLERK, [facility] Primary Care Unava ilable BENITO STEAM SHOVEL OPERATING ENGINEER-TELECOMMUNICATIONS CLERK, [facility] Primary Care Unava ilable JOE BREWER, IDALMIS Pearl Attending Unavailable IDALMIS DIAZ MD Attending Unavailable BENITO STEAM SHOVEL OPERATING ENGINEER-TELECOMMUNICATIONS CLERK, [facility] Primary Care Unava ilable BENITO STEAM SHOVEL OPERATING ENGINEER-TELECOMMUNICATIONS CLERK, [facility] Primary Care Unava ilable TRINITY STEAM SHOVEL OPERATING ENGINEER-BULLDOZER OPERATOR, JOANNE Keller Attending Unavai mariannale BENITO STEAM SHOVEL OPERATING ENGINEER-TELECOMMUNICATIONS CLERK, [facility] Primary Care Unava ilable IDALMIS DIAZ MD Attending Unavailable BENITO STEAM SHOVEL OPERATING ENGINEER-TELECOMMUNICATIONS CLERK, [facility] Primary Care Unava ilable BAM STEAM SHOVEL OPERATING ENGINEER-TELECOMMUNICATIONS CLERK, VICTORIANO Rodas Consulting Agustin SMART MD, DR MADELYN Keller Admitting Unavailab juli SMART MD, DR MADELYN Keller Attending Unavailab juli BENITO STEAM SHOVEL OPERATING ENGINEER-TELECOMMUNICATIONS CLERK, DOREEN MORAN Consulting Unava ilable BENITO STEAM SHOVEL OPERATING ENGINEER-TELECOMMUNICATIONS CLERK, [facility] Primary Care Unava ilable LIBRADO SARAH MD Attending Unavailable BENITO STEAM SHOVEL OPERATING ENGINEER-TELECOMMUNICATIONS CLERK, [facility] Primary Care Unava ilable OWEN NIÑO DO Attending Unavailable BENITO STEAM SHOVEL OPERATING ENGINEER-TELECOMMUNICATIONS CLERK, DOREEN DEAN Primary Care Unava cayetanoable BERRY BREWER, DR MADELYN Keller Attending Unavailab le BENITO STEAM SHOVEL OPERATING ENGINEER-TELECOMMUNICATIONS CLERK, DOREEN DEAN Primary Care Unava ilable KATHY STEAM SHOVEL OPERATING ENGINEER-TELECOMMUNICATIONS CLERK, JEMMA Attending Unavailab le BENITO STEAM SHOVEL OPERATING ENGINEER-TELECOMMUNICATIONS CLERK, DOREEN DEAN Primary Care Unava ilable TRICIA STEAM SHOVEL OPERATING ENGINEER-TELECOMMUNICATIONS CLERK, KARLA Keller Attending Raegan vailable BENITO, DOREEN Primary Care Unavailable BENITO, DOREEN Referring Unavailable BENITO, DOREEN Attending Unavailable BENITO, DOREEN Primary Care Unavailable BENITO, DOREEN Attending Unavailable BENITO, DOREEN Primary Care Unavailable BENITO, DOREEN Primary Care Unavailable BENITO, DOREEN Attending Unavailable BENITO, DOREEN Primary Care Unavailable BENITO, DOREEN Attending Unavailable BENITO, DOREEN Primary Care Unavailable BENITO, DOREEN Attending Unavailable BENITO, DOREEN Primary Care Unavailable BENITO, DOREEN Attending Unavailable BENITO, DOREEN Primary Care Unavailable BENITO, DOREEN Referring Unavailable BENITO, DOREEN Primary Care Unavailable BENITO, DOREEN Attending Unavailable BENITO, DOREEN Primary Care Unavailable BENITO, DOREEN Referring Unavailable BENITO, DOREEN Primary Care Unavailable BENITO, DOREEN Referring Unavailable BENITO, DOREEN Primary Care Unavailable BENITO, DOREEN Attending Unavailable BENITO, DOREEN Primary Care Unavailable BENITO, DOREEN Referring Unavailable BENITO, DOREEN Primary Care Unavailable BENITO, DOREEN Referring Unavailable BENITO, DOREEN Primary Care Unavailable BENITO, DOREEN Attending Unavailable BENITO, DOREEN Primary Care Unavailable BENITO, DOREEN Attending Unavailable BENITO, DOREEN Primary Care Unavailable SORAYAKELLEN RAMOS Attending Unavailable BENITO, DOREEN Primary Care Unavailable BENITO, DOREEN Attending Unavailable BENITO, DOREEN Referring Unavailable BENITO, DOREEN Attending Unavailable BENITO, DOREEN Primary Care Unavailable BENITO, DOREEN Primary Care Unavailable LUISA PEDRAZA Attending Unavailable BENITO, DOREEN Primary Care Unavailable BENITO, DOREEN Referring Unavailable Allergies Allergy Classification Reported Allergen(s) Allergy Type Date of Onset Reaction(s) Facility (20 sources) Codeine; Translations: [CODEINE] Drug Allergy 3 Unknown [facility] (20 sources) Latex; Translations: [LATEX, NATURAL RUBBER] Drug Allergy 3 Unknown [facility] (20 sources) meloxicam; Translations: [MELOXICAM (BULK)] Drug Allergy 3 Unknown [facility] (20 sources) oxybutynin; Translations: [OXYBUTYNIN] Drug Allergy 3 Unknown [facility] (20 sources) Phenytoin; Translations: [PHENYTOIN] Drug Allergy 3 Unknown [facility] (20 sources) Pravastatin; Translations: [PRAVASTATIN] Drug Allergy 3 Unknown [facility] (20 sources) Propofol; Translations: [PROPOFOL] Drug Allergy 3 Unknown [facility] (20 sources) Tetracycline; Translations: [TETRACYCLINE HCL (BULK)] Drug Allergy 3 Unknown [facility] (20 sources) traMADol; Translations: [TRAMADOL] Drug Allergy 3 Unknown [facility] (20 sources) Valproate; Translations: [DIVALPROEX] Drug Allergy 3 Unknown [facility] (20 sources) [place]; Translations: [[place]] Drug Allergy 3 [facility] (20 sources) Influenza Virus Vaccines; Translations: [INFLUENZA VIRUS VACCINES] Drug Allergy 3 Unknown [facility] (20 sources) Venom-Honey Bee; Translations: [VENOM-HONEY BEE] Drug Allergy 3 [facility] (9 sources) Bee/Wasp/Ant venom Allergy to substance [facility] (9 sources) influenza A virus A//GP1 908 (H1N1) antigen / influenza A virus A//GP2 050/2014 (H3N2) antigen / influenza B virus B/Almodovar antigen / influenza B virus B/ antigen; Translations: [influenza virus vaccine] Drug Allergy Throat Swelling, Rash [facility] (9 sources) Latex Allergy to substance Swelling [facility] (9 sources) Tetracycline; Translations: [tetracycline] Drug Allergy [facility] (9 sources) Valproate; Translations: [divalproex sodium] Drug Allergy Rash [facility] (7 sources) Influenza virus antigen (substance); Translations: [flu vaccines] Drug allergy Anaphylaxis (disorder) [facility] (2 sources) [place]; Translations: [STRAWBERRIES] Food Allergy 4 Swelling, Anaphylaxis [facility] Medications Current Medications Medication Drug Class(es) Dates Sig (Normalized) Sig (Original) acetaminophen 500 mg oral tablet (20 sources) Start: 10-15-2022 Tylenol Extra Strength 500 mg oral tablet Dose : 1,000 mg = 2 tab(s), Oral, QID, PRN as needed for pain, 0 Refill(s) Start Date: 10/15/22 Status: Ordered Completed/Discontinued Medications Medication Drug Class(es) Dates Sig (Normalized) Sig (Original) acetaminophen 325 mg / butalbital 50 mg / caffeine 40 mg oral tablet (20 sources) Barbiturate, Central Nervous System Stimulant, Methylxanthine Start: 12-24-2022 End: 06-24-2023 take 1 tablet by mouth every six hours as needed for headache and headache acetaminophen 325 mg-caffeine 40 mg-butalbital 50 mg (FIORICET) per tablet Indications: Nonintractable episodic headache, unspecified headache type Take 1 tablet by mouth every 6 hours as needed for headache. 120 tablet 0 12/24/2022 06/24/2023 Discontinued Problems Active Problems Problem Classification Problem Date Documented Date Episodic/Chronic Administrative/socia l admission (6 sources) Patient encounter status; Translations: [Persons encountering health services in other specified circumstances] Episodic Allergic reactions (1 source) Allergy to bee venom; Translations: [Bee allergy status] Episodic Anxiety disorders (20 sources) Anxiety; Translations: [Anxiety disorder, unspecified] Onset: 08-29-2022 Chronic Chronic obstructive pulmonary disease and bronchiectasis (20 sources) Chronic obstructive lung disease; Translations: [Chronic obstructive pulmonary disease, unspecified] Onset: 08-29-2022 Chronic Deficiency and other anemia (3 sources) Anemia; Translations: [Anemia, unspecified] Onset: 10-31-2022 Episodic Disorders of lipid metabolism (20 sources) Hyperlipidemia; Translations: [Hyperlipidemia, unspecified] Onset: 08-29-2022 Chronic E Codes: Fall (1 source) Fall; Translations: [Unspecified fall, subsequent encounter] 03-13-2023 Episodic E Codes: Natural/environment (1 source) Cat bite - wound; Translations: [Bitten by cat, initial encounter] 04-10-2023 Episodic Epilepsy; convulsions (2 sources) Epilepsy; Translations: [Epilepsy, unspecified, not intractable, without status epilepticus] Onset: 10-30-2022 Chronic Esophageal disorders (20 sources) Gastroesophageal reflux disease without esophagitis; Translations: [Gastro-esophageal reflux disease without esophagitis] Onset: 08-29-2022 Chronic Genitourinary symptoms and ill-defined conditions (1 source) Abnormal urine; Translations: [Unspecified abnormal findings in urine] 08-16-2023 Episodic Headache; including migraine (1 source) Headache; Translations: [Nonintractable episodic headache, unspecified headache type] Episodic Malaise and fatigue (2 sources) Other fatigue; Translations: [Weakness] Onset: 09-03-2023 Episodic Mood disorders (20 sources) Major depressive disorder; Translations: [Major depressive disorder, single episode, unspecified] Onset: 08-29-2022 Chronic Nutritional deficiencies (20 sources) Vitamin D deficiency; Translations: [Vitamin D deficiency, unspecified] Onset: 08-29-2022 Chronic Osteoarthritis (1 source) Osteoarthritis; Translations: [Unspecified osteoarthritis, unspecified site] Onset: 10-30-2022 Chronic Other acquired deformities (20 sources) Scoliosis deformity of spine; Translations: [Scoliosis, unspecified] Onset: 08-29-2022 Chronic Other circulatory disease (1 source) Low blood pressure; Translations: [Hypotension, unspecified] 08-16-2023 Episodic Other connective tissue disease (1 source) Hip joint prosthesis present; Translations: [Presence of right artificial hip joint] Onset: 11-01-2022 Chronic Other connective tissue disease (6 sources) History of total hip arthroplasty 03-18-2023 Chronic Other connective tissue disease (1 source) Recurrent falls ; Translations: [Repeated falls] 08-12-2023 Episodic Other connective tissue disease (1 source) Repeated falls; Translations: [Frequent falls] Onset: 09-03-2023 Episodic Other endocrine disorders (20 sources) Hypoglycemia; Translations: [Hypoglycemia, unspecified] Onset: 12-24-2022 12-24-2022 Chronic Other nervous system disorders (2 sources) Chronic postoperative pain; Translations: [Other chronic postprocedural pain] Chronic Other nervous system disorders (6 sources) Postoperative pain 03-18-2023 Episodic Other non-traumatic joint disorders (1 source) Pain in left knee; Translations: [Pain in joint, lower leg] 03-13-2023 Episodic Other nutritional; endocrine; and metabolic disorders (4 sources) Obesity caused by energy imbalance; Translations: [Other obesity due to excess calories] 04-30-2023 Chronic Other nutritional; endocrine; and metabolic disorders (1 source) Obese class I; Translations: [Obesity, unspecified] Onset: 10-01-2023 10-01-2023 Chronic Other nutritional; endocrine; and metabolic disorders (1 source) Other obesity due to excess calories; Translations: [Class 1 obesity due to excess calories with serious comorbidity and body mass index (BMI) of 32.0 to 32.9 in adult] Onset: 04-30-2023 Chronic Other nutritional; endocrine; and metabolic disorders (1 source) Body mass index (BMI) 32.0-32.9, adult; Translations: [Class 1 obesity due to excess calories with serious comorbidity and body mass index (BMI) of 32.0 to 32.9 in adult] Onset: 04-30-2023 Chronic Other nutritional; endocrine; and metabolic disorders (3 sources) Recent weight gain; Translations: [Abnormal weight gain] 04-30-2023 Episodic Other screening for suspected conditions (not mental disorders or infectious disease) (2 sources) Imaging of thyroid gland abnormal; Translations: [Abnormal findings on diagnostic imaging of other specified body structures] Chronic Residual codes; unclassified (1 source) Poor short-term memory ; Translations: [Other amnesia] Episodic Residual codes; unclassified (1 source) Bilateral lower limb edema; Translations: [Localized edema] 08-16-2023 Episodic Thyroid disorders (20 sources) Hypothyroidism; Translations: [Hypothyroidism, unspecified] Onset: 04-10-2022 Chronic Transient cerebral ischemia (20 sources) Transient cerebral ischemia; Translations: [Transient cerebral ischemic attack, unspecified] Onset: 10-12-2022 Chronic Viral infection (1 source) Plantar wart of left foot; Translations: [Plantar wart] Episodic Past or Other Problems Problem Classification Problem Date Documented Da te Episodic/Chronic Complication of device; implant or graft (20 sources) Loosening of hip joint prosthesis; Translations: [Mechanical loosening of internal right hip prosthetic joint, subsequent encounter] Onset: 05-08-2022 Episodic Deficiency and other anemia (1 source) Anemia, unspecified; Translations: [Anemia, unspecified type] Onset: 11-23-2022 Episodic Fluid and electrolyte disorders (2 sources) Hyponatremia; Translations: [Hypo-osmolality and hyponatremia] Onset: 11-23-2022 Episodic Nausea and vomiting (3 sources) Nausea; Translations: [Nausea] Onset: 06-24-2023 Episodic Nutritional deficiencies (2 sources) Iron deficiency; Translations: [Iron deficiency] Onset: 04-30-2023 04-30-2023 Episodic Other aftercare (1 source) Encounter for therapeutic drug level monitoring; Translations: [Encounter for therapeutic drug monitoring] Onset: 04-30-2023 Episodic Other non-traumatic joint disorders (20 sources) Pain in right hip joint; Translations: [Pain in right hip] Onset: 08-29-2022 Episodic Other nutritional; endocrine; and metabolic disorders (1 source) Abnormal weight gain; Translations: [Recent weight gain] Onset: 04-30-2023 Episodic Other screening for suspected conditions (not mental disorders or infectious disease) (6 sources) Mammography abnormal; Translations: [Other abnormal and inconclusive findings on diagnostic imaging of breast] Onset: 12-31-2022 Episodic Results Test Name Value Interpretation Reference Range Facil ity Vital Signs Date Time Vital Sign Value Performing Clinician Facility 08-16-2023 11:08-0500 Body weight 86.64 kg Doreen Oliver APRN.TELECOMMUNICATIONS CLERK Work Phone: [facility] 08-16-2023 11:08-0500 Diastolic blood pressure 74 mm[Hg] Doreen Oliver APRN.TELECOMMUNICATIONS CLERK Work Phone: [facility] 08-16-2023 11:08-0500 Heart rate 81 /min Doreen Oliver APRN.TELECOMMUNICATIONS CLERK Work Phone: [facility] 08-16-2023 11:08-0500 SaO2% (BldA) [Mass fraction] 97 % Doreen Oliver APRN.TELECOMMUNICATIONS CLERK Work Phone: [facility] 08-16-2023 11:08-0500 Systolic blood pressure 86 mm[Hg] Doreen Oliver APRN.TELECOMMUNICATIONS CLERK Work Phone: [facility] 07-29-2023 13:18-0500 Body temperature 96.21 [degF] Doreen Oliver APRN.TELECOMMUNICATIONS CLERK Work Phone: [facility] 07-29-2023 13:18-0500 Body weight 86.46 kg Doreen Benito STEAM SHOVEL OPERATING ENGINEER.TELECOMMUNICATIONS CLERK Work Phone: [facility] 07-29-2023 13:18-0500 Diastolic blood pressure 72 mm[Hg] Doreen Benito STEAM SHOVEL OPERATING ENGINEER.TELECOMMUNICATIONS CLERK Work Phone: [facility] 07-29-2023 13:18-0500 Heart rate 76 /min Doreen Benito STEAM SHOVEL OPERATING ENGINEER.TELECOMMUNICATIONS CLERK Work Phone: [facility] 07-29-2023 13:18-0500 SaO2% (BldA) [Mass fraction] 99 % Doreen Benito STEAM SHOVEL OPERATING ENGINEER.TELECOMMUNICATIONS CLERK Work Phone: [facility] 07-29-2023 13:18-0500 Systolic blood pressure 100 mm[Hg] Doreen Benito STEAM SHOVEL OPERATING ENGINEER.TELECOMMUNICATIONS CLERK Work Phone: [facility] 07-22-2023 13:38-0500 Body weight 88.91 kg Doreen Benito STEAM SHOVEL OPERATING ENGINEER.TELECOMMUNICATIONS CLERK Work Phone: [facility] 07-22-2023 13:38-0500 Diastolic blood pressure 78 mm[Hg] Doreen Benito STEAM SHOVEL OPERATING ENGINEER.TELECOMMUNICATIONS CLERK Work Phone: [facility] 07-22-2023 13:38-0500 Heart rate 64 /min Doreen Benito STEAM SHOVEL OPERATING ENGINEER.TELECOMMUNICATIONS CLERK Work Phone: [facility] 07-22-2023 13:38-0500 SaO2% (BldA) [Mass fraction] 99 % Doreen Benito STEAM SHOVEL OPERATING ENGINEER.TELECOMMUNICATIONS CLERK Work Phone: [facility] 07-22-2023 13:38-0500 Systolic blood pressure 112 mm[Hg] Doreen Benito STEAM SHOVEL OPERATING ENGINEER.TELECOMMUNICATIONS CLERK Work Phone: [facility] 07-19-2023 11:47-0500 Body temperature 98.49 [degF] Luisa Older STEAM SHOVEL OPERATING ENGINEER.TELECOMMUNICATIONS CLERK Work Phone: [facility] 07-19-2023 11:47-0500 Body weight 89.81 kg Luisa Older STEAM SHOVEL OPERATING ENGINEER.TELECOMMUNICATIONS CLERK Work Phone: [facility] 07-19-2023 11:47-0500 Diastolic blood pressure 60 mm[Hg] Luisa Older STEAM SHOVEL OPERATING ENGINEER.TELECOMMUNICATIONS CLERK Work Phone: [facility] 07-19-2023 11:47-0500 Heart rate 91 /min Luisa Older STEAM SHOVEL OPERATING ENGINEER.TELECOMMUNICATIONS CLERK Work Phone: [facility] 07-19-2023 11:47-0500 Respiratory rate 22 /min Luisa Older STEAM SHOVEL OPERATING ENGINEER.TELECOMMUNICATIONS CLERK Work Phone: [facility] 07-19-2023 11:47-0500 SaO2% (BldA) [Mass fraction] 97 % Luisa Older STEAM SHOVEL OPERATING ENGINEER.TELECOMMUNICATIONS CLERK Work Phone: [facility] 07-19-2023 11:47-0500 Systolic blood pressure 98 mm[Hg] Luisa Older STEAM SHOVEL OPERATING ENGINEER.TELECOMMUNICATIONS CLERK Work Phone: [facility] 06-24-2023 15:02-0400 Body weight 89.36 kg Doreen Benito STEAM SHOVEL OPERATING ENGINEER.TELECOMMUNICATIONS CLERK Work Phone: [facility] 06-24-2023 15:02-0400 Diastolic blood pressure 68 mm[Hg] Doreen Benito STEAM SHOVEL OPERATING ENGINEER.TELECOMMUNICATIONS CLERK Work Phone: [facility] 06-24-2023 15:02-0400 Heart rate 82 /min Doreen Benito STEAM SHOVEL OPERATING ENGINEER.TELECOMMUNICATIONS CLERK Work Phone: [facility] 06-24-2023 15:02-0400 SaO2% (BldA) [Mass fraction] 97 % Doreen Benito STEAM SHOVEL OPERATING ENGINEER.TELECOMMUNICATIONS CLERK Work Phone: [facility] 06-24-2023 15:02-0400 Systolic blood pressure 100 mm[Hg] Doreen Benito STEAM SHOVEL OPERATING ENGINEER.TELECOMMUNICATIONS CLERK Work Phone: [facility] 04-30-2023 12:48-0400 Body height 165.1 cm Doreen Benito STEAM SHOVEL OPERATING ENGINEER.TELECOMMUNICATIONS CLERK Work Phone: [facility] 04-30-2023 12:48-0400 Body weight 88.45 kg Doreen Benito STEAM SHOVEL OPERATING ENGINEER.TELECOMMUNICATIONS CLERK Work Phone: [facility] 04-30-2023 12:48-0400 Diastolic blood pressure 69 mm[Hg] Doreen Benito STEAM SHOVEL OPERATING ENGINEER.TELECOMMUNICATIONS CLERK Work Phone: [facility] 04-30-2023 12:48-0400 Heart rate 61 /min Doreen Benito STEAM SHOVEL OPERATING ENGINEER.TELECOMMUNICATIONS CLERK Work Phone: [facility] 04-30-2023 12:48-0400 SaO2% (BldA) [Mass fraction] 96 % Doreen Benito STEAM SHOVEL OPERATING ENGINEER.TELECOMMUNICATIONS CLERK Work Phone: [facility] 04-30-2023 12:48-0400 Systolic blood pressure 100 mm[Hg] Doreen Benito STEAM SHOVEL OPERATING ENGINEER.TELECOMMUNICATIONS CLERK Work Phone: [facility] 04-10-2023 11:46-0400 Body temperature 97.7 [degF] Doreen Benito STEAM SHOVEL OPERATING ENGINEER.TELECOMMUNICATIONS CLERK Work Phone: [facility] 04-10-2023 11:46-0400 Body weight 86.64 kg Doreen Benito STEAM SHOVEL OPERATING ENGINEER.TELECOMMUNICATIONS CLERK Work Phone: [facility] 04-10-2023 11:46-0400 Diastolic blood pressure 62 mm[Hg] Doreen Benito STEAM SHOVEL OPERATING ENGINEER.TELECOMMUNICATIONS CLERK Work Phone: [facility] 04-10-2023 11:46-0400 Heart rate 60 /min Doreen Benito STEAM SHOVEL OPERATING ENGINEER.TELECOMMUNICATIONS CLERK Work Phone: [facility] 04-10-2023 11:46-0400 Respiratory rate 20 /min Doreen Benito STEAM SHOVEL OPERATING ENGINEER.TELECOMMUNICATIONS CLERK Work Phone: [facility] 04-10-2023 11:46-0400 Systolic blood pressure 108 mm[Hg] Doreen Benito STEAM SHOVEL OPERATING ENGINEER.TELECOMMUNICATIONS CLERK Work Phone: [facility] 03-13-2023 13:52-0400 Body weight 87.54 kg Doreen Benito STEAM SHOVEL OPERATING ENGINEER.TELECOMMUNICATIONS CLERK Work Phone: [facility] 03-13-2023 13:52-0400 Diastolic blood pressure 72 mm[Hg] Doreen Benito STEAM SHOVEL OPERATING ENGINEER.TELECOMMUNICATIONS CLERK Work Phone: [facility] 03-13-2023 13:52-0400 Heart rate 54 /min Doreen Benito STEAM SHOVEL OPERATING ENGINEER.TELECOMMUNICATIONS CLERK Work Phone: [facility] 03-13-2023 13:52-0400 SaO2% (BldA) [Mass fraction] 95 % Doreen Benito STEAM SHOVEL OPERATING ENGINEER.TELECOMMUNICATIONS CLERK Work Phone: [facility] 03-13-2023 13:52-0400 Systolic blood pressure 110 mm[Hg] Doreen Benito STEAM SHOVEL OPERATING ENGINEER.TELECOMMUNICATIONS CLERK Work Phone: [facility] 02-28-2023 09:56-0400 Body height 170.2 cm Kellen Duenas MD Work Phone: [facility] 02-28-2023 09:56-0400 Body temperature 97.81 [degF] Kellen Duenas MD Work Phone: [facility] 02-28-2023 09:56-0400 Body weight 88.91 kg Kellen Duenas MD Work Phone: [facility] 02-28-2023 09:56-0400 Diastolic blood pressure 50 mm[Hg] Kellen Duenas MD Work Phone: [facility] 02-28-2023 09:56-0400 Heart rate 87 /min Kellen Duenas MD Work Phone: [facility] 02-28-2023 09:56-0400 SaO2% (BldA) [Mass fraction] 96 % Kellen Duenas MD Work Phone: [facility] 02-28-2023 09:56-0400 Systolic blood pressure 90 mm[Hg] Kellen Duenas MD Work Phone: [facility] 02-12-2023 09:59-0400 Body weight 80.74 kg Doreen Benito STEAM SHOVEL OPERATING ENGINEER.TELECOMMUNICATIONS CLERK Work Phone: [facility] 02-12-2023 09:59-0400 Diastolic blood pressure 60 mm[Hg] Doreen Benito STEAM SHOVEL OPERATING ENGINEER.TELECOMMUNICATIONS CLERK Work Phone: [facility] 02-12-2023 09:59-0400 Heart rate 66 /min Doreen Benito STEAM SHOVEL OPERATING ENGINEER.TELECOMMUNICATIONS CLERK Work Phone: [facility] 02-12-2023 09:59-0400 SaO2% (BldA) [Mass fraction] 96 % Doreen Benito STEAM SHOVEL OPERATING ENGINEER.TELECOMMUNICATIONS CLERK Work Phone: [facility] 02-12-2023 09:59-0400 Systolic blood pressure 84 mm[Hg] Doreen Benito STEAM SHOVEL OPERATING ENGINEER.TELECOMMUNICATIONS CLERK Work Phone: [facility] 12-24-2022 10:47-0400 Body weight 85.28 kg Doreen Benito STEAM SHOVEL OPERATING ENGINEER.TELECOMMUNICATIONS CLERK Work Phone: [facility] 12-24-2022 10:47-0400 Diastolic blood pressure 74 mm[Hg] Doreen Benito STEAM SHOVEL OPERATING ENGINEER.TELECOMMUNICATIONS CLERK Work Phone: [facility] 12-24-2022 10:47-0400 Heart rate 59 /min Doreen Benito STEAM SHOVEL OPERATING ENGINEER.TELECOMMUNICATIONS CLERK Work Phone: [facility] 12-24-2022 10:47-0400 SaO2% (BldA) [Mass fraction] 94 % Doreen Benito STEAM SHOVEL OPERATING ENGINEER.TELECOMMUNICATIONS CLERK Work Phone: [facility] 12-24-2022 10:47-0400 Systolic blood pressure 100 mm[Hg] Doreen Benito STEAM SHOVEL OPERATING ENGINEER.TELECOMMUNICATIONS CLERK Work Phone: [facility] 12-12-2022 14:22-0400 Body height 167 cm OWEN NIÑO DO [facility] 12-12-2022 14:22-0400 Body temperature 97.7 [degF] OWEN NIÑO DO [facility] 12-12-2022 14:22-0400 Body weight 72.7 kg OWEN NIÑO DO [facility] 12-12-2022 14:22-0400 Diastolic Blood Pressure Non-Invasive 79 1 OWEN NIÑO DO [facility] 12-12-2022 14:22-0400 Heart rate 92 /min OWEN NIÑO DO [facility] 12-12-2022 14:22-0400 Respiratory rate 18 /min OWEN NIÑO DO [facility] 12-12-2022 14:22-0400 Systolic Blood Pressure Non-Invasive 132 1 OWEN NIÑO DO [facility] 11-01-2022 11:42-0500 Body temperature 98.06 [degF] DR MADELYN SMART MD [facility] 11-01-2022 11:42-0500 Diastolic Blood Pressure Non-Invasive [address] MADELYN SMART MD [facility] 11-01-2022 11:42-0500 Heart rate 59 /min DR MADELYN SMRAT MD [facility] 11-01-2022 11:42-0500 Reason For Taking VItal Signs DR MADELYN SMART MD [facility] 11-01-2022 11:42-0500 Respiratory rate 18 /min DR MADELYN SMART MD [facility] 11-01-2022 11:42-0500 Systolic Blood Pressure Non-Invasive [address] MADELYN SMART MD [facility] 11-01-2022 07:42-0500 Respiratory rate 18 /min DR MADELYN SMART MD [facility] 11-01-2022 06:45-0500 Body temperature 97.88 [degF] DR MADELYN SMART MD [facility] 11-01-2022 06:45-0500 Diastolic Blood Pressure Non-Invasive [address] MADELYN SMART MD [facility] 11-01-2022 06:45-0500 Heart rate 68 /min DR MADELYN SMART MD [facility] 11-01-2022 06:45-0500 Reason For Taking VItal Signs DR MADELYN SMART MD [facility] 11-01-2022 06:45-0500 Respiratory rate 18 /min DR MADELYN SMART MD [facility] 11-01-2022 06:45-0500 Systolic Blood Pressure Non-Invasive [address] MADELYN SMART MD [facility] 11-01-2022 03:18-0500 Body temperature 98.24 [degF] DR MADELYN SMART MD [facility] 11-01-2022 03:18-0500 Diastolic Blood Pressure Non-Invasive [address] MADELYN SMART MD [facility] 11-01-2022 03:18-0500 Heart rate 87 /min DR MADELYN SMART MD [facility] 11-01-2022 03:18-0500 Reason For Taking VItal Signs DR MADELYN SMART MD [facility] 11-01-2022 03:18-0500 Systolic Blood Pressure Non-Invasive [address] MADELYN SMART MD [facility] 10-31-2022 23:23-0500 Heart rate 97 /min DR MADELYN SMART MD [facility] 10-31-2022 19:33-0500 Heart rate 106 /min DR MADELYN SMART MD [facility] 10-31-2022 18:27-0500 Heart rate 76 /min DR MADELYN SMART MD [facility] 10-31-2022 17:31-0500 Heart rate 89 /min DR MADELYN SMART MD [facility] 10-31-2022 13:54-0500 Heart rate 80 /min DR MADELYN SMART MD [facility] 10-31-2022 06:11-0500 Heart rate 65 /min DR MADELYN SMART MD [facility] 10-30-2022 15:12-0500 Body height 170.[address] MADELYN SMART MD [facility] 10-30-2022 15:12-0500 Body weight 76.[address] MADELYN SMART MD [facility] 10-30-2022 15:12-0500 Body weight 26.41 kg/m2 DR MADELYN SMART MD [facility] 10-30-2022 14:45-0500 Body temperature 96.26 [degF] DR MADELYN SMART MD [facility] 10-30-2022 13:03-0500 Body temperature 97.16 [degF] DR MADELYN SMART MD [facility] 10-30-2022 13:00-0500 Respiratory Rate - Anes 0 br/min DR MADELYN SMART MD [facility] 10-30-2022 12:55-0500 Respiratory Rate - Anes 9 br/min DR MADELYN SMART MD [facility] 10-30-2022 12:50-0500 Respiratory Rate - Anes 11 br/min DR MADELYN SMART MD [facility] 10-30-2022 09:10-0500 Body height 170.[address] MADELYN SMART MD [facility] 10-30-2022 09:10-0500 Body temperature 97.88 [degF] DR MADELYN SMART MD [facility] 10-30-2022 09:10-0500 Body weight [address] MADELYN SMART MD [facility] 09-24-2022 14:37-0500 Body height 165.1 cm Doreen Benito STEAM SHOVEL OPERATING ENGINEER.TELECOMMUNICATIONS CLERK Work Phone: [facility] 09-24-2022 14:37-0500 Body weight 77.56 kg Doreen Benito STEAM SHOVEL OPERATING ENGINEER.TELECOMMUNICATIONS CLERK Work Phone: [facility] 09-24-2022 14:37-0500 Diastolic blood pressure 64 mm[Hg] Doreen Benito STEAM SHOVEL OPERATING ENGINEER.TELECOMMUNICATIONS CLERK Work Phone: [facility] 09-24-2022 14:37-0500 Heart rate 55 /min Doreen Benito STEAM SHOVEL OPERATING ENGINEER.TELECOMMUNICATIONS CLERK Work Phone: [facility] 09-24-2022 14:37-0500 SaO2% (BldA) [Mass fraction] 98 % Doreen Benito STEAM SHOVEL OPERATING ENGINEER.TELECOMMUNICATIONS CLERK Work Phone: [facility] 09-24-2022 14:37-0500 Systolic blood pressure 100 mm[Hg] Doreen Benito STEAM SHOVEL OPERATING ENGINEER.TELECOMMUNICATIONS CLERK Work Phone: [facility] 09-18-2022 10:11-0500 Body height 170.2 cm Roosevelt Cardona MD Work Phone: [facility] 09-18-2022 10:11-0500 Body temperature 98.29 [degF] Roosevelt Cardona MD Work Phone: [facility] 09-18-2022 10:11-0500 Body weight 77.29 kg Roosevelt Cardona MD Work Phone: [facility] 09-18-2022 10:11-0500 Diastolic blood pressure 60 mm[Hg] Roosevelt Cardona MD Work Phone: [facility] 09-18-2022 10:11-0500 Heart rate 70 /min Roosevelt Cardona MD Work Phone: [facility] 09-18-2022 10:11-0500 SaO2% (BldA) [Mass fraction] 98 % Roosevelt Cardona MD Work Phone: [facility] 09-18-2022 10:11-0500 Systolic blood pressure 98 mm[Hg] Roosevelt Cardona MD Work Phone: [facility] 08-29-2022 08:14-0500 Body height 165.1 cm Doreen Benito STEAM SHOVEL OPERATING ENGINEER.TELECOMMUNICATIONS CLERK Work Phone: [facility] 08-29-2022 08:14-0500 Body weight 72.58 kg Doreen Benito STEAM SHOVEL OPERATING ENGINEER.TELECOMMUNICATIONS CLERK Work Phone: [facility] 08-29-2022 08:14-0500 Diastolic blood pressure 66 mm[Hg] Doreen Benito STEAM SHOVEL OPERATING ENGINEER.TELECOMMUNICATIONS CLERK Work Phone: [facility] 08-29-2022 08:14-0500 Heart rate 65 /min Doreen Benito STEAM SHOVEL OPERATING ENGINEER.TELECOMMUNICATIONS CLERK Work Phone: [facility] 08-29-2022 08:14-0500 Respiratory rate 20 /min Doreen Benito STEAM SHOVEL OPERATING ENGINEER.TELECOMMUNICATIONS CLERK Work Phone: [facility] 08-29-2022 08:14-0500 SaO2% (BldA) [Mass fraction] 98 % Doreen Benito STEAM SHOVEL OPERATING ENGINEER.TELECOMMUNICATIONS CLERK Work Phone: [facility] 08-29-2022 08:14-0500 Systolic blood pressure 98 mm[Hg] Doreen Benito STEAM SHOVEL OPERATING ENGINEER.TELECOMMUNICATIONS CLERK Work Phone: [facility] Encounters Encounter Date Encounter Type Care Provider Facility Start: 10-04-2023 Telephone encounter Doreen Cleav er STEAM SHOVEL OPERATING ENGINEER.TELECOMMUNICATIONS CLERK Work Phone: [facility] Procedures Date Procedure Procedure Detail Performing Clinician Start: 09-03-2023 Lipid 1996 panel - S vic or Plasma Doreen Benito STEAM SHOVEL OPERATING ENGINEER.TELECOMMUNICATIONS CLERK Work Phone: Start: 06-28-2023 Digital breast tomosynthesis unilateral Doreen Benito STEAM SHOVEL OPERATING ENGINEER.TELECOMMUNICATIONS CLERK Work Phone: Start: 02-27-2023 Us breast uni real t sonja with image limited Doreen Oliver APRN.TELECOMMUNICATIONS CLERK Work Phone: Start: 12-31-2022 End: 12-31-2022 Mammography Doreen Oliver APRN.CN P Work Phone: Start: 10-30-[address] MADELYN SMART MD Plan of Treatment Date Care Activity Detail Author Start: 08-14-2032 Urine microalbumin profile [facility] Start: 09-03-2028 Lipid panel Lipid Screening [facility] Start: 09-21-2027 Lipid 1996 panel - Serum or Plasma Lipid Screening [facility] Start: 09-21-2027 Lipid panel Lipid Screening [facility] Start: 09-21-2027 LIPID SCREEN LIPID SCREEN [facility] Start: 09-03-2026 Diabetes Screening Diabetes Screening [facility] Start: 04-30-2026 DIABETES SCREEN DIABETES SCREEN [facility] Start: 04-30-2026 Diabetes Screening Diabetes Screening [facility] Start: 11-23-2025 DIABETES SCREEN DIABETES SCREEN [facility] Start: 11-09-2025 DIABETES SCREEN DIABETES SCREEN [facility] Start: 04-10-2025 DIABETES SCREEN DIABETES SCREEN [facility] Start: 10-01-2024 Annual PCP Team Chronic Disease Visit Annual PCP Team Chronic Disease Visit [facility] Start: 08-16-2024 Annual PCP Team Chronic Disease Visit Annual PCP Team Chronic Disease Visit [facility] Start: 07-29-2024 Annual PCP Team Chronic Disease Visit Annual PCP Team Chronic Disease Visit [facility] Start: 07-22-2024 Annual PCP Team Chronic Disease Visit Annual PCP Team Chronic Disease Visit [facility] Start: 07-19-2024 Annual PCP Team Chronic Disease Visit Annual PCP Team Chronic Disease Visit [facility] Start: 06-24-2024 Annual PCP Team Chronic Disease Visit Annual PCP Team Chronic Disease Visit [facility] Start: 04-30-2024 ANNUAL PCP TEAM CHRONIC DISEASE VISIT ANNUAL PCP TEAM CHRONIC DISEASE VISIT [facility] Start: 04-10-2024 ANNUAL PCP TEAM CHRONIC DISEASE VISIT ANNUAL PCP TEAM CHRONIC DISEASE VISIT [facility] Start: 03-13-2024 ANNUAL PCP TEAM CHRONIC DISEASE VISIT ANNUAL PCP TEAM CHRONIC DISEASE VISIT [facility] Start: 02-13-2024 ANNUAL PCP TEAM CHRONIC DISEASE VISIT ANNUAL PCP TEAM CHRONIC DISEASE VISIT [facility] Start: 01-01-2024 Mammography [facility] Start: 01-01-2024 Screening for malignant neoplasm of breast Mammogram Screening [facility] Start: 12-25-2023 ANNUAL PCP TEAM CHRONIC DISEASE VISIT ANNUAL PCP TEAM CHRONIC DISEASE VISIT [facility] Start: 11-25-2023 COLORECTAL CANCER SCREENING COLORECTAL CANCER SCREENING [facility] Start: 11-25-2023 FECAL OCCULT BLOOD FECAL OCCULT BLOOD [facility] Start: 11-25-2023 Screening for malignant neoplasm of colon [facility] Start: 09-24-2023 ANNUAL PCP TEAM CHRONIC DISEASE VISIT ANNUAL PCP TEAM CHRONIC DISEASE VISIT [facility] Start: 09-02-2023 Advance Directive Discussion Advance Directive Discussion [facility] Start: 08-29-2023 ANNUAL PCP TEAM CHRONIC DISEASE VISIT ANNUAL PCP TEAM CHRONIC DISEASE VISIT [facility] Start: 07-09-2023 End: 10-08-2023 Lipid 1996 panel - Serum or Plasma LIPID PANEL BASIC Lab Routine Hyperlipidemia Expected: 07/09/2023, Expires: 10/08/2023 [facility] Work Phone: Immunizations Immunization Date Immunization Notes Care Provider Fa chadwick 08-14-2022 tetanus toxoid, redu thomas diphtheria toxoid, and acellular pertussis vaccine, adsorbed Doreen Benito STEAM SHOVEL OPERATING ENGINEER.TELECOMMUNICATIONS CLERK Work Phone: [facility] Work Phone: Payers Date Payer Category Payer Medicaid [facility] MEDICAID MYC ARE [facility] MEDICAID [id number] 2022-Present [phone] [address] [place] [address] Medicaid [id number] 2022 Private Health Insurance [id number] 2022 Medicare [id number] 2022 Medicaid [id number] 2022 Medicare HUMANA MEDICARE [employer] GOLD PLUS [id number] 2022-Present [phone] [address] [address] [place] [address] HMO [id number] 2022 Private Health Insurance [id number] 1955 Unknown [id number] 27 1955 Unknown [id number] 1955 Unknown [id number] 27 1955 Unknown [id number] 1955 Unknown [id number] 27 1955 Unknown [id number] 1955 Unknown [id number] 27 1955 Unknown [id number] 1955 Unknown [id number] 27 1955 Unknown [id number] 1955 Unknown [id number] 1955 Unknown [id number] 1955 Unknown [id number] Social History Date Type Detail Facility Start: 08-29-2022 End: 01-21-2023 Tobacco smoking status ALIS Never smoked tobacco [facility] Work Phone: Start: 08-29-2022 Tobacco use and exposure Smokeless tobacco non-user [facility] Work Phone: Start: 08-29-2022 End: 10-01-2023 Alcohol intake Lifetime non-drinker (finding) [facility] Start: 1955 Sex Assigned At Not on file [facility] Sex Assigned At Female [facility] Start: 03-13-2023 End: 07-29-2023 History of Social function [facility] Start: 03-13-2023 End: 07-29-2023 Tobacco use panel [facility] National Score (1-100), lower number is lower risk 75 [facility] Functional Status Date Assessment Result Facility 12-12-2022 Functional Status Independent [facility] 11-01-2022 Functional Status Room check performed [facility] 11-01-2022 [facility] Functional Status step up [facility] 10-31-2022 Functional Status [facility] 10-31-2022 Functional Status 75 [facility] 10-31-2022 Functional Status Assistive Device Walker [facility] 10-31-2022 Functional Status Lunch Percent 100 [facility] 10-31-2022 Functional Status [facility] 10-31-2022 Functional Status [facility] 10-31-2022 Functional Status [facility] 10-31-2022 Functional Status [facility] 10-30-2022 Functional Status One assist [facility] 10-30-2022 Functional Status [facility] 10-30-2022 Functional Status Single level home [facility] 10-30-2022 Functional Status [facility] 10-30-2022 Functional Status ice on [facility] 10-30-2022 Functional Status NPO Status Maintained A [facility] Mental Status Date Assessment Result Facility 12-12-2022 Mental Status Oriented x 4 [facility] 11-01-2022 Mental Status Orientation Asse ssment Oriented x 4 [facility] 11-01-2022 [facility]-01-[facility]22 [facility] 10-31-2022 [facility]31[facility] Notes 08-29-2022 to 10-04-2023 Telephone Encounter - Humble Bro Ma - 10/04/2023 2:43 PM ESTTelephone Encounter - Sujey Holm - 10/04/2023 2:12 PM Doreen Fields APRN.TELECOMMUNICATIONS CLERK - 08/16/2023 11:30 AM ESTPatient Instructions Note Date & Type Note Facility 10-04-2023 Miscellaneous Notes See phone note 10/01. This will be discussed at next office visit. Patient previously made aware of this. Patient has been identified by name and date of : Yes Phentermine HCl 37.5 mg tablet 30 tablet 0 RX INSTRUCTIONS: Patient aware RX will be sent to pharmacy. No need to nofity patient. Controlled medication - must be call in. Sujey Villeda documented in this encounter [facility] 10-01-2023 Note HNO ID: [id number] Author: DOREEN OLIVER APRN.WHITNEY Service: ? Author Type: Nurse Practitioner Type: Progress Notes Filed: 10/01/2023 12:59 Note Text: SUBJECTIVE Lea Gomez is a 68 year old female here today for a check up on her medical problems. Chief Complaint Patient presents with: Follow Up: meds, c/o SOB, h/o COPD HPI Lea Gomez is a 68 year old female. She presents today for a follow up. Overall breathing is doing okay, making plans to move back to [place] because it was easier on her lungs there. Noticing dizziness, worse with sitting to standing, trying to walk. Using a wheeled walker. Leg edema some improved. Has not followed up with neurology since we last saw each other. Her medications were reviewed today and her list is now up to date. Medications Current Outpatient Medications Medication Sig furosemide (LASIX) 20 mg tablet Take 0.5 tablets by mouth every other day. If dizzy hold the second dose that day iron polysaccharide complex (NU-IRON) 150 mg iron capsule Start as once daily and if tolerating after 2 weeks with no constipation then increase to twice daily. EPINEPHrine (EPIPEN) 0.3 mg/0.3 mL auto-injector Inject 0.3 mL intramuscularly as needed. ugamltgbeyc-rwbiutzjb-kdivmqtn (TRELEGY ELLIPTA) 200-62.5-25 mcg inhalation powder Inhale 1 Puff as instructed once daily. dicyclomine (BENTYL) 20 mg tablet Take 1 tablet by mouth before meals and at bedtime. guaiFENesin (MUCINEX) 600 mg 12 hr tablet Take 1,200 mg by mouth two times a day as needed for cold/allergy symptoms. budesonide (PULMICORT) 0.5 mg/2 mL nebulizer solution Use 2 mL via nebulizer two times a day. promethazine (PHENERGAN) 25 mg tablet Take 1 tablet by mouth every 6 hours as needed for nausea/vomiting. sertraline (ZOLOFT) 50 mg tablet Take 1 tablet by mouth once daily. ARIPiprazole (ABILIFY) 5 mg tablet Take 1 tablet by mouth once daily. HYDROcodone-Acetaminophen (NORCO) 10-325 mg per tablet Take 1 tablet by mouth four times daily. gabapentin (NEURONTIN) 300 mg capsule Take 1 capsule by mouth three times daily. WALKER ROLLATOR SEAT WITH 6 WHEELS - RED Rollator walker, please send to [employer] aspirin, enteric coated (ASPIRIN, ENTERIC COATED) 81 mg EC tablet Take 81 mg by mouth once daily. Acetaminophen 500 mg cap Take 1,000 mg by mouth as needed. albuterol (PROVENTIL) 2.5 mg /3 mL (0.083 %) nebulizer solution Inhale 2.5 mg as instructed every 6 hours as needed. albuterol HFA (PROVENTIL HFA, VENTOLIN HFA) 90 mcg/actuation inhaler Inhale 2 Puffs as instructed every 6 hours as needed. Cholecalciferol, Vitamin D3, 25 mcg (1,000 unit) cap Take 1 capsule by mouth once daily. diazePAM (VALIUM) 5 mg tablet Take 1 tablet by mouth as needed. diclofenac, EC, (VOLTAREN) 75 mg EC tablet Take 1 tablet by mouth once daily. levothyroxine (SYNTHROID) 75 mcg tablet Take 88 mcg by mouth once daily. methocarbamol (ROBAXIN) 750 mg tablet Take 1 tablet by mouth twice daily. montelukast (SINGULAIR) 10 mg tablet Take 1 tablet by mouth as directed. omeprazole (PRILOSEC) 40 mg capsule Take 1 capsule by mouth twice daily. simvastatin (ZOCOR) 40 mg tablet Take 1 tablet by mouth once daily. No current facility-administered medications for this visit. ALLERGIES Allergen Reactions [place] Unknown Depakote [Divalproe* Unknown Dilantin [Phenytoin] Unknown Ditropan [Oxybutyni* Unknown Influenza Virus Vac* Unknown Latex, Natural Rubb* Unknown Meloxicam (Bulk) Unknown Pravastatin Unknown Propofol Unknown Strawberries Swelling, Anaphylaxis Tetracycline Hcl (B* Unknown Tramadol Unknown Tylenol #3 [Codeine] Unknown Venom-Honey Bee Unknown ACTIVE PROBLEM LIST Nonintractable Epilepsy Without Status Epilepticus, Unspecified Epilepsy Type (Hcc) - 10/01/2023 Obesity, Class I, Bmi 30-34.9 - 10/01/2023 Hypoglycemia - 12/24/2022 Tia (Transient Ischemic Attack) - 12/24/2022 Chronic Obstructive Pulmonary Disease (Hcc) - 08/29/2022 Hyperlipidemia - 08/29/2022 Gastroesophageal Reflux Disease Without Esophagitis - 08/29/2022 Ptsd (Post-Traumatic Stress Disorder) - 08/29/2022 Major Depressive Disorder - 08/29/2022 Anxiety - 08/29/2022 Hypothyroidism - 08/29/2022 Vitamin D Deficiency - 08/29/2022 Scoliosis - 08/29/2022 Right Hip Pain - 08/29/2022 Femoral Loosening of Prosthetic Right Hip, Subsequent Encounter - 05/08/2022 Thyroid Nodule - 04/10/2022 Comment: 04/10/22: Multiple thyroid nodules found on US 12/22/21 (results reviewed and scanned to chart). Lesion in lower pole of right gland 1.4 cm, TR 4; recommended f/u in 1 year. Lesion at the lower pole of the left lobe 2.7 cm, TR 3; recommended FNA; ordered Social History Tobacco Use Smoking status: Never Smokeless tobacco: Never Vaping Use Vaping Use: Never used Substance Use Topics Alcohol use: Never Drug use: Never Review of Systems Res (more content not included)... [facility] 09-03-2023 Note HNO ID: [id number] Author: Doreen Oliver APRN.TELECOMMUNICATIONS CLERK Service: ? Author Type: Nurse Practitioner Type: Progress Notes Filed: 09/03/2023 12:39 PM Note Text: SUBJECTIVE Lea Gomez is a 68 year old female here today for a check up on her medical problems. Chief Complaint Patient presents with: Edema: follow up of lower leg swelling Fall: has had multiply falls in home HPI Lea Gomez is a 68 year old female. Her today for follow up. Last seen 08/16. Noted to have increased edema in the BLE. Prescribed Lasix a total of 20 mg daily if tolerable for x2 weeks. Concerns of increased falls and dizziness and blood pressure being borderline. Swelling is better with the Lasix. Falling due to feeling off of balance. Will lose her balance. Feeling wobbly and weak. Right is weaker than the left. Has been on going since her orthopaedic surgery. Starts PT next week and can help with gait training. Not noticing any dizziness. Some confusion more than normal. Gets mixed up. Has a neurologist, Dr. Pederson, planning to see him for follow up. Her medications were reviewed today and her list is now up to date. Medications Current Outpatient Medications Medication Sig nbfdhikbixq-atihsluzf-mnlpfmyn (TRELEGY ELLIPTA) 200-62.5-25 mcg inhalation powder Inhale 1 Puff as instructed once daily. dicyclomine (BENTYL) 20 mg tablet Take 1 tablet by mouth before meals and at bedtime. guaiFENesin (MUCINEX) 600 mg 12 hr tablet Take 1,200 mg by mouth two times a day as needed for cold/allergy symptoms. budesonide (PULMICORT) 0.5 mg/2 mL nebulizer solution Use 2 mL via nebulizer two times a day. promethazine (PHENERGAN) 25 mg tablet Take 1 tablet by mouth every 6 hours as needed for nausea/vomiting. sertraline (ZOLOFT) 50 mg tablet Take 1 tablet by mouth once daily. ARIPiprazole (ABILIFY) 5 mg tablet Take 1 tablet by mouth once daily. HYDROcodone-Acetaminophen (NORCO) 10-325 mg per tablet Take 1 tablet by mouth four times daily. gabapentin (NEURONTIN) 300 mg capsule Take 1 capsule by mouth three times daily. aspirin, enteric coated (ASPIRIN, ENTERIC COATED) 81 mg EC tablet Take 81 mg by mouth once daily. Acetaminophen 500 mg cap Take 1,000 mg by mouth as needed. albuterol (PROVENTIL) 2.5 mg /3 mL (0.083 %) nebulizer solution Inhale 2.5 mg as instructed every 6 hours as needed. albuterol HFA (PROVENTIL HFA, VENTOLIN HFA) 90 mcg/actuation inhaler Inhale 2 Puffs as instructed every 6 hours as needed. Cholecalciferol, Vitamin D3, 25 mcg (1,000 unit) cap Take 1 capsule by mouth once daily. diazePAM (VALIUM) 5 mg tablet Take 1 tablet by mouth as needed. diclofenac, EC, (VOLTAREN) 75 mg EC tablet Take 1 tablet by mouth once daily. levothyroxine (SYNTHROID) 75 mcg tablet Take 88 mcg by mouth once daily. methocarbamol (ROBAXIN) 750 mg tablet Take 1 tablet by mouth twice daily. montelukast (SINGULAIR) 10 mg tablet Take 1 tablet by mouth as directed. omeprazole (PRILOSEC) 40 mg capsule Take 1 capsule by mouth twice daily. simvastatin (ZOCOR) 40 mg tablet Take 1 tablet by mouth once daily. EPINEPHrine (EPIPEN) 0.3 mg/0.3 mL auto-injector Inject 0.3 mL intramuscularly as needed. furosemide (LASIX) 20 mg tablet Take 0.5 tablets by mouth two times a day. If dizzy hold the second dose that day benzonatate (TESSALON PERLE) 100 mg capsule Take 2 capsules by mouth every morning. (Patient not taking: Reported on 09/03/2023) WALKER ROLLATOR SEAT WITH 6 WHEELS - RED Rollator walker, please send to [facility] No current facility-administered medications for this visit. ALLERGIES Allergen Reactions [place] Unknown Depakote [Divalproe* Unknown Dilantin [Phenytoin] Unknown Ditropan [Oxybutyni* Unknown Influenza Virus Vac* Unknown Latex, Natural Rubb* Unknown Meloxicam (Bulk) Unknown Pravastatin Unknown Propofol Unknown Strawberries Swelling, Anaphylaxis Tetracycline Hcl (B* Unknown Tramadol Unknown Tylenol #3 [Codeine] Unknown Venom-Honey Bee Unknown ACTIVE PROBLEM LIST Hypoglycemia - 12/24/2022 Tia (Transient Ischemic Attack) - 12/24/2022 Chronic Obstructive Pulmonary Disease (Hcc) - 08/29/2022 Hyperlipidemia - 08/29/2022 Gastroesophageal Reflux Disease Without Esophagitis - 08/29/2022 Ptsd (Post-Traumatic Stress Disorder) - 08/29/2022 Major Depressive Disorder - 08/29/2022 Anxiety - 08/29/2022 Hypothyroidism - 08/29/2022 Vitamin D Deficiency - 08/29/2022 Scoliosis - 08/29/2022 Right Hip Pain - 08/29/2022 Femoral Loosening of Prosthetic Right Hip, Subsequent Encounter - 05/08/2022 Thyroid Nodule - 04/10/2022 Comment: 04/10/22: Multiple thyroid nodules found on US 12/22/21 (results reviewed and scanned to chart). Lesion in lower pole of right gland 1.4 cm, TR 4; recommended f/u in 1 year. Lesion at the lower pole of the left lobe 2.7 cm, TR 3; recommended FNA; ordered Social History Tobacco Use (more content not included)... [facility] 08-16-2023 Note HNO ID: [id number] Author: Doreen Oliver APRN.TELECOMMUNICATIONS CLERK Service: ? Author Type: Nurse Practitioner Type: Progress Notes Filed: 08/16/2023 12:58 PM Note Text: SUBJECTIVE Lea Gomez is a 68 year old female here today for a check up on her medical problems. Chief Complaint Patient presents with: Mass: lower legs with pitting edema +2 and painful HPI Lea Gomez is a 68 year old female. Here today for concerns of increased swelling in BLE. Onset gradual over the last few days. Legs feel tight, uncomfortable. No areas of increased redness, warmth or palpable masses or lumps. Was on Lasix in the past but had stopped this. Urine seems concentrated in the am. Blood pressures always run low. She does watch how much salt is in her diet. Drinks at least 1 L of water per day. Her medications were reviewed today and her list is now up to date. Medications Current Outpatient Medications Medication Sig lmkrvfehfis-fdxlqpumu-dmnazrrs (TRELEGY ELLIPTA) 200-62.5-25 mcg inhalation powder Inhale 1 Puff as instructed once daily. dicyclomine (BENTYL) 20 mg tablet Take 1 tablet by mouth before meals and at bedtime. Phentermine HCl 37.5 mg tablet Take 1 tablet by mouth once daily for 30 days. guaiFENesin (MUCINEX) 600 mg 12 hr tablet Take 1,200 mg by mouth two times a day as needed for cold/allergy symptoms. budesonide (PULMICORT) 0.5 mg/2 mL nebulizer solution Use 2 mL via nebulizer two times a day. promethazine (PHENERGAN) 25 mg tablet Take 1 tablet by mouth every 6 hours as needed for nausea/vomiting. sertraline (ZOLOFT) 50 mg tablet Take 1 tablet by mouth once daily. ARIPiprazole (ABILIFY) 5 mg tablet Take 1 tablet by mouth once daily. benzonatate (TESSALON PERLE) 100 mg capsule Take 2 capsules by mouth every morning. EPINEPHrine (EPIPEN) 0.3 mg/0.3 mL auto-injector Inject 0.3 mL intramuscularly as needed. HYDROcodone-Acetaminophen (NORCO) 10-325 mg per tablet Take 1 tablet by mouth four times daily. gabapentin (NEURONTIN) 300 mg capsule Take 1 capsule by mouth three times daily. aspirin, enteric coated (ASPIRIN, ENTERIC COATED) 81 mg EC tablet Take 81 mg by mouth once daily. Acetaminophen 500 mg cap Take 1,000 mg by mouth as needed. albuterol (PROVENTIL) 2.5 mg /3 mL (0.083 %) nebulizer solution Inhale 2.5 mg as instructed every 6 hours as needed. albuterol HFA (PROVENTIL HFA, VENTOLIN HFA) 90 mcg/actuation inhaler Inhale 2 Puffs as instructed every 6 hours as needed. Cholecalciferol, Vitamin D3, 25 mcg (1,000 unit) cap Take 1 capsule by mouth once daily. diazePAM (VALIUM) 5 mg tablet Take 1 tablet by mouth as needed. diclofenac, EC, (VOLTAREN) 75 mg EC tablet Take 1 tablet by mouth once daily. levothyroxine (SYNTHROID) 75 mcg tablet Take 88 mcg by mouth once daily. methocarbamol (ROBAXIN) 750 mg tablet Take 1 tablet by mouth twice daily. montelukast (SINGULAIR) 10 mg tablet Take 1 tablet by mouth as directed. omeprazole (PRILOSEC) 40 mg capsule Take 1 capsule by mouth twice daily. simvastatin (ZOCOR) 40 mg tablet Take 1 tablet by mouth once daily. furosemide (LASIX) 20 mg tablet Take 0.5 tablets by mouth two times a day. If dizzy hold the second dose that day WALKER ROLLATOR SEAT WITH 6 WHEELS - RED Rollator walker, please send to [facility] No current facility-administered medications for this visit. ALLERGIES Allergen Reactions [place] Unknown Depakote [Divalproe* Unknown Dilantin [Phenytoin] Unknown Ditropan [Oxybutyni* Unknown Influenza Virus Vac* Unknown Latex, Natural Rubb* Unknown Meloxicam (Bulk) Unknown Pravastatin Unknown Propofol Unknown Tetracycline Hcl (B* Unknown Tramadol Unknown Tylenol #3 [Codeine] Unknown Venom-Honey Bee Unknown ACTIVE PROBLEM LIST Hypoglycemia - 12/24/2022 Tia (Transient Ischemic Attack) - 12/24/2022 Chronic Obstructive Pulmonary Disease (Hcc) - 08/29/2022 Hyperlipidemia - 08/29/2022 Gastroesophageal Reflux Disease Without Esophagitis - 08/29/2022 Ptsd (Post-Traumatic Stress Disorder) - 08/29/2022 Major Depressive Disorder - 08/29/2022 Anxiety - 08/29/2022 Hypothyroidism - 08/29/2022 Vitamin D Deficiency - 08/29/2022 Scoliosis - 08/29/2022 Right Hip Pain - 08/29/2022 Femoral Loosening of Prosthetic Right Hip, Subsequent Encounter - 05/08/2022 Thyroid Nodule - 04/10/2022 Comment: 04/10/22: Multiple thyroid nodules found on US 12/22/21 (results reviewed and scanned to chart). Lesion in lower pole of right gland 1.4 cm, TR 4; recommended f/u in 1 year. Lesion at the lower pole of the left lobe 2.7 cm, TR 3; recommended FNA; ordered Social History Tobacco Use Smoking status: Never Smokeless tobacco: Never Vaping Use Vaping Use: Never used Substance Use Topics Alcohol use: Never Drug use: Never Review of Systems Respiratory: Negative. Cardiovascular: Positive for leg swelling. Negative for chest pain and (more content not included)... [facility] 08-16-2023 History of Presen t illness Narrative SUBJECTIVE Lea Gomez is a 68 year old female here today for a check up on her medical problems. Chief Complaint Patient presents with: Mass: lower legs with pitting edema +2 and painful HPI Lea Gomez is a 68 year old female. Here today for concerns of increased swelling in BLE. Onset gradual over the last few days. Legs feel tight, uncomfortable. No areas of increased redness, warmth or palpable masses or lumps. Was on Lasix in the past but had stopped this. Urine seems concentrated in the am. Blood pressures always run low. She does watch how much salt is in her diet. Drinks at least 1 L of water per day. Her medications were reviewed today and her list is now up to date. Medications Current Outpatient Medications Medication Sig igigfxahyum-ntagxkpsb-ztnvkyhn (TRELEGY ELLIPTA) 200-62.5-25 mcg inhalation powder Inhale 1 Puff as instructed once daily. dicyclomine (BENTYL) 20 mg tablet Take 1 tablet by mouth before meals and at bedtime. Phentermine HCl 37.5 mg tablet Take 1 tablet by mouth once daily for 30 days. guaiFENesin (MUCINEX) 600 mg 12 hr tablet Take 1,200 mg by mouth two times a day as needed for cold/allergy symptoms. budesonide (PULMICORT) 0.5 mg/2 mL nebulizer solution Use 2 mL via nebulizer two times a day. promethazine (PHENERGAN) 25 mg tablet Take 1 tablet by mouth every 6 hours as needed for nausea/vomiting. sertraline (ZOLOFT) 50 mg tablet Take 1 tablet by mouth once daily. ARIPiprazole (ABILIFY) 5 mg tablet Take 1 tablet by mouth once daily. benzonatate (TESSALON PERLE) 100 mg capsule Take 2 capsules by mouth every morning. EPINEPHrine (EPIPEN) 0.3 mg/0.3 mL auto-injector Inject 0.3 mL intramuscularly as needed. HYDROcodone-Acetaminophen (NORCO) 10-325 mg per tablet Take 1 tablet by mouth four times daily. gabapentin (NEURONTIN) 300 mg capsule Take 1 capsule by mouth three times daily. aspirin, enteric coated (ASPIRIN, ENTERIC COATED) 81 mg EC tablet Take 81 mg by mouth once daily. Acetaminophen 500 mg cap Take 1,000 mg by mouth as needed. albuterol (PROVENTIL) 2.5 mg /3 mL (0.083 %) nebulizer solution Inhale 2.5 mg as instructed every 6 hours as needed. albuterol HFA (PROVENTIL HFA, VENTOLIN HFA) 90 mcg/actuation inhaler Inhale 2 Puffs as instructed every 6 hours as needed. Cholecalciferol, Vitamin D3, 25 mcg (1,000 unit) cap Take 1 capsule by mouth once daily. diazePAM (VALIUM) 5 mg tablet Take 1 tablet by mouth as needed. diclofenac, EC, (VOLTAREN) 75 mg EC tablet Take 1 tablet by mouth once daily. levothyroxine (SYNTHROID) 75 mcg tablet Take 88 mcg by mouth once daily. methocarbamol (ROBAXIN) 750 mg tablet Take 1 tablet by mouth twice daily. montelukast (SINGULAIR) 10 mg tablet Take 1 tablet by mouth as directed. omeprazole (PRILOSEC) 40 mg capsule Take 1 capsule by mouth twice daily. simvastatin (ZOCOR) 40 mg tablet Take 1 tablet by mouth once daily. furosemide (LASIX) 20 mg tablet Take 0.5 tablets by mouth two times a day. If dizzy hold the second dose that day WALKER ROLLATOR SEAT WITH 6 WHEELS - RED Rollator walker, please send to [facility] No current facility-administered medications for this visit. ALLERGIES Allergen Reactions [place] Unknown Depakote [Divalproe* Unknown Dilantin [Phenytoin] Unknown Ditropan [Oxybutyni* Unknown Influenza Virus Vac* Unknown Latex, Natural Rubb* Unknown Meloxicam (Bulk) Unknown Pravastatin Unknown Propofol Unknown Tetracycline Hcl (B* Unknown Tramadol Unknown Tylenol #3 [Codeine] Unknown Venom-Honey Bee Unknown ACTIVE PROBLEM LIST Hypoglycemia - 12/24/2022 Tia (Transient Ischemic Attack) - 12/24/2022 Chronic Obstructive Pulmonary Disease (Hcc) - 08/29/2022 Hyperlipidemia - 08/29/2022 Gastroesophageal Reflux Disease Without Esophagitis - 08/29/2022 Ptsd (Post-Traumatic Stress Disorder) - 08/29/2022 Major Depressive Disorder - 08/29/2022 Anxiety - 08/29/2022 Hypothyroidism - 08/29/2022 Vitamin D Deficiency - 08/29/2022 Scoliosis - 08/29/2022 Right Hip Pain - 08/29/2022 Femoral Loosening of Prosthetic Right Hip, Subsequent Encounter - 05/08/2022 Thyroid Nodule - 04/10/2022 Comment: 04/10/22: Multiple thyroid nodules found on US 12/22/21 (results reviewed and scanned to chart). Lesion in lower pole of right gland 1.4 cm, TR 4; recommended f/u in 1 year. Lesion at the lower pole of the left lobe 2.7 cm, TR 3; recommended FNA; ordered Social History Tobacco Use Smoking status: Never Smokeless tobacco: Never Vaping Use Vaping Use: Never used Substance Use Topics Alcohol use: Never Drug use: Never Review of Systems Respiratory: Negative. Cardiovascular: Positive for leg swelling. Negative for chest pain and palpitations. OBJECTIVE BP 86/74 Pulse 81 Wt 191 lb (86.6kg) SpO2 97% Physical Exam Vitals and nursing note reviewed. Constitutional: General: She is awake. She is not in acute distress. Appearance: Normal appearance. She is well-developed and well-groomed. She is not ill-appearing, toxic-appearing or diaphoretic. HENT: Head: Normocephalic. Right Ear: External ear normal. Left Ear: External ear normal. Nose: Nose normal. Eyes: General: Vision grossly intact. Conjunctiva/sclera: Conjunctivae normal. Pupils: Pupils are equal, round, and reactive to light. Neck: Vascular: No JVD. Trachea: Trachea normal. Cardiovascular: Rate and Rhythm: Normal rate and regular rhythm. Pulses: Normal pulses. Heart sounds: Normal heart sounds. No murmur heard. Pulmonary: Effort: Pulmonary effort is normal. No accessory muscle usage, prolonged expiration or respiratory distress. Breath sounds: Normal breath sounds. Musculoskeletal: Cervical back: Neck supple. Right lower leg: Edema present. Left lower leg: Edema present. Skin: General: Skin is warm and dry. Capillary Refill: Capillary refill takes less than 2 seconds. Neurological: General: No focal deficit present. Mental Status: She is alert and oriented to person, place, and time. Mental status is at baseline. Psychiatric: Attention and Perception: Attention and perception normal. Mood and Affect: Mood and affect normal. Speech: Speech normal. Behavior: Behavior normal. Behavior is cooperative. Thought Content: Thought content normal. Cognition and Memory: Cognition and memory normal. Judgment: Judgment normal. ASSESSMENT/PLAN: 1. Bilateral leg edema - ICD9: 782.3, ICD10: R60.0 (primary diagnosis) Split does with 10 mg in the am and 10 mg after lunch to help prevent further reduction in bp. Monitor closely, follow up in 2 weeks. - FUROSEMIDE 20 MG TABLET 2. Abnormal urine - ICD9: 791.9, ICD10: R82.90 - UA DIP B/O 3. Hypotension, unspecified hypotension type - ICD9: 458.9, ICD10: I95.9 Portions of this note have been entered by ancillary staff. I have reviewed and when necessary edited, so that they are an adequate record of my encounter with this patient Please note that parts of this document were created using voice recognition software and therefore may contain grammatical errors. Patient verbalizes understanding of instructions from today's visit and in agreement with treatment plan. Questions answered. Agrees to call the office if questions, concerns of issues with acute symptoms not improving or if they worsen. See diagnoses and orders for additional plan(s). Allergies and medications were reviewed, list was updated, and refills given if needed. Past medical, surgical, social, and family history reviewed and updated as appropriate. Encouraged proper diet & exercise as well as compliance with taking medications. Age-appropriate health preventative measures were discussed. Return in about 2 weeks (around 08/30/2023) for recheck on new medication.. Doreen Oliver APRN-WHITNEY documented in this encounter [facility] 08-13-2023 Miscellaneous Notes Home care Certification Form 485 received from [facility] [place]. For cert dates 07/10/2023-09/07/2023 that were signed on 07/22/2023. Recertification Patient's home health 485 form / care plan for stated certification period reviewed and signed. Relevant medical records were reviewed. No changes were indicated documented in this encounter [facility] 08-12-2023 Miscellaneous Notes Noted, agree with PT due to the frequent falls, concerning that she is going to have an injury soon with how much she has fallen. Orders and demographics faxed to [facility] at [phone] as requested. TC to patient who verbalized understanding. Patient wanting provider to know she fell and landed on her knees . Her niece helped her up off the floor. Patient was not seen at ED, stating she is doing fine just wanted provider to be aware. GIORGIO Pearce Please send PT order. Thanks! Pt would like to have PT order faxed to [facility]. Soco Zamarripa Ma Please let her know if Dr. Vyas does not order PT then we definitely can. Also please remind her to be drinking enough water! 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 Thanks! Mary Design/Animation Instructor from [facility] calls to report that patient reported to her that she had fallen on 07/25 and 08/08. Mary reports that patient has been hypotensive. Blood pressure a couple of days ago was 83/42. Called and spoke with patient regarding to fall last night. Patient states that her sister had placed a shower curtain and joya at front entrance. Patient had slipped on shower curtain and fell on both knees. Patient was able to get up on her own. Patient's niece and checked patient out and didn't notice anything wrong. Patient states that her blood pressure normally runs low. Patient denies any symptoms of dizziness. Patient has not had physical therapy for right hip and back for a couple of weeks. Patient states that she has noticed this. Patient states that she needs more physical therapy but would need a new order. Dr. Smart wrote previous order. Patient states that she will contact Dr. Smart's office on this but is asking if provider would send a physical therapy order to [facility] if Dr. Smart does not? Please review and advise, Sharona Castellanos RN documented in this encounter [facility] 08-02-2023 Miscellaneous Notes Noted. Glad to hear she is feeling better. Pt called in and reports provider wanted an update on her. She states she feels great, whatever she had broke. She only has a slight cough and is bringing up clear phlegm in the morning from her COPD. documented in this encounter [facility] 07-29-2023 Note HNO ID: [id number] Author: Doreen Oliver APRN.WHITNEY Service: ? Author Type: Nurse Practitioner Type: Progress Notes Filed: 07/29/2023 4:13 PM Note Text: SUBJECTIVE Lea Gomez is a 68 year old female here today for a check up on her medical problems. Chief Complaint Patient presents with: Recheck: COPD. Cough has improved but still very short of breath and having some dizziness HPI Lea Gomez is a 68 year old female. Here today for follow up/recheck on her COPD. Seen last week for ER follow up on COPD exacerbation. Today she feels a little improved but still very short of breath. No cough is productive for clear sputum. Her medications were reviewed today and her list is now up to date. Medications Current Outpatient Medications Medication Sig Phentermine HCl 37.5 mg tablet Take 1 tablet by mouth once daily for 30 days. guaiFENesin (MUCINEX) 600 mg 12 hr tablet Take 1,200 mg by mouth two times a day as needed for cold/allergy symptoms. budesonide (PULMICORT) 0.5 mg/2 mL nebulizer solution Use 2 mL via nebulizer two times a day. promethazine (PHENERGAN) 25 mg tablet Take 1 tablet by mouth every 6 hours as needed for nausea/vomiting. sertraline (ZOLOFT) 50 mg tablet Take 1 tablet by mouth once daily. ARIPiprazole (ABILIFY) 5 mg tablet Take 1 tablet by mouth once daily. benzonatate (TESSALON PERLE) 100 mg capsule Take 2 capsules by mouth every morning. EPINEPHrine (EPIPEN) 0.3 mg/0.3 mL auto-injector Inject 0.3 mL intramuscularly as needed. HYDROcodone-Acetaminophen (NORCO) 10-325 mg per tablet Take 1 tablet by mouth four times daily. gabapentin (NEURONTIN) 300 mg capsule Take 1 capsule by mouth three times daily. aspirin, enteric coated (ASPIRIN, ENTERIC COATED) 81 mg EC tablet Take 81 mg by mouth once daily. Acetaminophen 500 mg cap Take 1,000 mg by mouth as needed. albuterol (PROVENTIL) 2.5 mg /3 mL (0.083 %) nebulizer solution Inhale 2.5 mg as instructed every 6 hours as needed. albuterol HFA (PROVENTIL HFA, VENTOLIN HFA) 90 mcg/actuation inhaler Inhale 2 Puffs as instructed every 6 hours as needed. Cholecalciferol, Vitamin D3, 25 mcg (1,000 unit) cap Take 1 capsule by mouth once daily. diazePAM (VALIUM) 5 mg tablet Take 1 tablet by mouth as needed. diclofenac, EC, (VOLTAREN) 75 mg EC tablet Take 1 tablet by mouth once daily. levothyroxine (SYNTHROID) 75 mcg tablet Take 88 mcg by mouth once daily. methocarbamol (ROBAXIN) 750 mg tablet Take 1 tablet by mouth twice daily. montelukast (SINGULAIR) 10 mg tablet Take 1 tablet by mouth as directed. omeprazole (PRILOSEC) 40 mg capsule Take 1 capsule by mouth twice daily. simvastatin (ZOCOR) 40 mg tablet Take 1 tablet by mouth once daily. pxkmiaicxgo-bttbxkpej-egzcjtfw (TRELEGY ELLIPTA) 200-62.5-25 mcg inhalation powder Inhale 1 Puff as instructed once daily. predniSONE (DELTASONE) 20 mg tablet 1 tablet three times a day for 3 days, then 2 times a day for 3 days, the one daily for 3 days. dicyclomine (BENTYL) 20 mg tablet Take 1 tablet by mouth before meals and at bedtime. metFORMIN (GLUCOPHAGE) 500 mg tablet Take 1 tablet by mouth two times a day with meals. (Patient not taking: Reported on 07/19/2023) WALKER ROLLATOR SEAT WITH 6 WHEELS - RED Rollator walker, please send to [facility] No current facility-administered medications for this visit. ALLERGIES Allergen Reactions [place] Unknown Depakote [Divalproe* Unknown Dilantin [Phenytoin] Unknown Ditropan [Oxybutyni* Unknown Influenza Virus Vac* Unknown Latex, Natural Rubb* Unknown Meloxicam (Bulk) Unknown Pravastatin Unknown Propofol Unknown Tetracycline Hcl (B* Unknown Tramadol Unknown Tylenol #3 [Codeine] Unknown Venom-Honey Bee Unknown ACTIVE PROBLEM LIST Hypoglycemia - 12/24/2022 Tia (Transient Ischemic Attack) - 12/24/2022 Chronic Obstructive Pulmonary Disease (Hcc) - 08/29/2022 Hyperlipidemia - 08/29/2022 Gastroesophageal Reflux Disease Without Esophagitis - 08/29/2022 Ptsd (Post-Traumatic Stress Disorder) - 08/29/2022 Major Depressive Disorder - 08/29/2022 Anxiety - 08/29/2022 Hypothyroidism - 08/29/2022 Vitamin D Deficiency - 08/29/2022 Scoliosis - 08/29/2022 Right Hip Pain - 08/29/2022 Femoral Loosening of Prosthetic Right Hip, Subsequent Encounter - 05/08/2022 Thyroid Nodule - 04/10/2022 Comment: 04/10/22: Multiple thyroid nodules found on US 12/22/21 (results reviewed and scanned to chart). Lesion in lower pole of right gland 1.4 cm, TR 4; recommended f/u in 1 year. Lesion at the lower pole of the left lobe 2.7 cm, TR 3; recommended FNA; ordered Social History Tobacco Use Smoking status: Never Smokeless tobacco: Never Vaping Use Vaping Use: Never used Substance Use Topics Alcohol use: Never Drug use: Never Review of Systems Respiratory: Positive for cough and shortness of breath. Negative for apnea, choking (more content not included)... [facility] 07-29-2023 History of Presen t illness Narrative SUBJECTIVE Lea Gomez is a 68 year old female here today for a check up on her medical problems. Chief Complaint Patient presents with: Recheck: COPD. Cough has improved but still very short of breath and having some dizziness HPI Lea Gomez is a 68 year old female. Here today for follow up/recheck on her COPD. Seen last week for ER follow up on COPD exacerbation. Today she feels a little improved but still very short of breath. No cough is productive for clear sputum. Her medications were reviewed today and her list is now up to date. Medications Current Outpatient Medications Medication Sig Phentermine HCl 37.5 mg tablet Take 1 tablet by mouth once daily for 30 days. guaiFENesin (MUCINEX) 600 mg 12 hr tablet Take 1,200 mg by mouth two times a day as needed for cold/allergy symptoms. budesonide (PULMICORT) 0.5 mg/2 mL nebulizer solution Use 2 mL via nebulizer two times a day. promethazine (PHENERGAN) 25 mg tablet Take 1 tablet by mouth every 6 hours as needed for nausea/vomiting. sertraline (ZOLOFT) 50 mg tablet Take 1 tablet by mouth once daily. ARIPiprazole (ABILIFY) 5 mg tablet Take 1 tablet by mouth once daily. benzonatate (TESSALON PERLE) 100 mg capsule Take 2 capsules by mouth every morning. EPINEPHrine (EPIPEN) 0.3 mg/0.3 mL auto-injector Inject 0.3 mL intramuscularly as needed. HYDROcodone-Acetaminophen (NORCO) 10-325 mg per tablet Take 1 tablet by mouth four times daily. gabapentin (NEURONTIN) 300 mg capsule Take 1 capsule by mouth three times daily. aspirin, enteric coated (ASPIRIN, ENTERIC COATED) 81 mg EC tablet Take 81 mg by mouth once daily. Acetaminophen 500 mg cap Take 1,000 mg by mouth as needed. albuterol (PROVENTIL) 2.5 mg /3 mL (0.083 %) nebulizer solution Inhale 2.5 mg as instructed every 6 hours as needed. albuterol HFA (PROVENTIL HFA, VENTOLIN HFA) 90 mcg/actuation inhaler Inhale 2 Puffs as instructed every 6 hours as needed. Cholecalciferol, Vitamin D3, 25 mcg (1,000 unit) cap Take 1 capsule by mouth once daily. diazePAM (VALIUM) 5 mg tablet Take 1 tablet by mouth as needed. diclofenac, EC, (VOLTAREN) 75 mg EC tablet Take 1 tablet by mouth once daily. levothyroxine (SYNTHROID) 75 mcg tablet Take 88 mcg by mouth once daily. methocarbamol (ROBAXIN) 750 mg tablet Take 1 tablet by mouth twice daily. montelukast (SINGULAIR) 10 mg tablet Take 1 tablet by mouth as directed. omeprazole (PRILOSEC) 40 mg capsule Take 1 capsule by mouth twice daily. simvastatin (ZOCOR) 40 mg tablet Take 1 tablet by mouth once daily. jhkugnmvgvq-sopklmitw-mxermjba (TRELEGY ELLIPTA) 200-62.5-25 mcg inhalation powder Inhale 1 Puff as instructed once daily. predniSONE (DELTASONE) 20 mg tablet 1 tablet three times a day for 3 days, then 2 times a day for 3 days, the one daily for 3 days. dicyclomine (BENTYL) 20 mg tablet Take 1 tablet by mouth before meals and at bedtime. metFORMIN (GLUCOPHAGE) 500 mg tablet Take 1 tablet by mouth two times a day with meals. (Patient not taking: Reported on 07/19/2023) WALKER ROLLATOR SEAT WITH 6 WHEELS - RED Rollator walker, please send to [facility] No current facility-administered medications for this visit. ALLERGIES Allergen Reactions [place] Unknown Depakote [Divalproe* Unknown Dilantin [Phenytoin] Unknown Ditropan [Oxybutyni* Unknown Influenza Virus Vac* Unknown Latex, Natural Rubb* Unknown Meloxicam (Bulk) Unknown Pravastatin Unknown Propofol Unknown Tetracycline Hcl (B* Unknown Tramadol Unknown Tylenol #3 [Codeine] Unknown Venom-Honey Bee Unknown ACTIVE PROBLEM LIST Hypoglycemia - 12/24/2022 Tia (Transient Ischemic Attack) - 12/24/2022 Chronic Obstructive Pulmonary Disease (Hcc) - 08/29/2022 Hyperlipidemia - 08/29/2022 Gastroesophageal Reflux Disease Without Esophagitis - 08/29/2022 Ptsd (Post-Traumatic Stress Disorder) - 08/29/2022 Major Depressive Disorder - 08/29/2022 Anxiety - 08/29/2022 Hypothyroidism - 08/29/2022 Vitamin D Deficiency - 08/29/2022 Scoliosis - 08/29/2022 Right Hip Pain - 08/29/2022 Femoral Loosening of Prosthetic Right Hip, Subsequent Encounter - 05/08/2022 Thyroid Nodule - 04/10/2022 Comment: 04/10/22: Multiple thyroid nodules found on US 12/22/21 (results reviewed and scanned to chart). Lesion in lower pole of right gland 1.4 cm, TR 4; recommended f/u in 1 year. Lesion at the lower pole of the left lobe 2.7 cm, TR 3; recommended FNA; ordered Social History Tobacco Use Smoking status: Never Smokeless tobacco: Never Vaping Use Vaping Use: Never used Substance Use Topics Alcohol use: Never Drug use: Never Review of Systems Respiratory: Positive for cough and shortness of breath. Negative for apnea, choking, chest tightness, wheezing and stridor. Cardiovascular: Negative. OBJECTIVE BP 100/72 Pulse 76 Temp (Src) 96.2 (Tympanic) Wt 190 lb 9.6 oz (86.5kg) SpO2 99% Physical Exam Vitals and nursing note reviewed. Constitutional: General: She is awake. She is not in acute distress. Appearance: She is ill-appearing. She is not toxic-appearing or diaphoretic. HENT: Head: Normocephalic. Cardiovascular: Rate and Rhythm: Normal rate and regular rhythm. Heart sounds: Normal heart sounds. Pulmonary: Effort: Tachypnea present. No bradypnea or accessory muscle usage. Breath sounds: Examination of the right-lower field reveals decreased breath sounds. Examination of the left-lower field reveals decreased breath sounds. Decreased breath sounds present. No wheezing, rhonchi or rales. Skin: General: Skin is warm and dry. Capillary Refill: Capillary refill takes less than 2 seconds. Neurological: General: No focal deficit present. Mental Status: She is alert and oriented to person, place, and time. Mental status is at baseline. Psychiatric: Attention and Perception: Attention normal. Mood and Affect: Mood normal. Speech: Speech normal. Behavior: Behavior normal. Behavior is cooperative. Thought Content: Thought content normal. ASSESSMENT/PLAN: 1. Chronic obstructive pulmonary disease with acute exacerbation (HCC) - ICD9: 491.21, ICD10: J44.1 COPD is still exacerbated, maybe a slight improvement but she is still looking like she does not feel well. Try changing to Trellegy, prednisone taper since burst complete. Declines assessment for o2 needs. States if worse will go to ER, will call and update us in the next few days. - FLUTICASONE FUR. 200 MCG-UMECLID 62.5 MCG-VILANT 25 MCG INHALAT.POWDER - PREDNISONE 20 MG TABLET Medical Decision Making: Problems: Moderate: 1+ chronic illnesses with change Risk: Moderate: Drug management Medical Decision Making Level: 4 - Moderate Portions of this note have been entered by ancillary staff. I have reviewed and when necessary edited, so that they are an adequate record of my encounter with this patient Please note that parts of this document were created using voice recognition software and therefore may contain grammatical errors. Patient verbalizes understanding of instructions from today's visit and in agreement with treatment plan. Questions answered. Agrees to call the office if questions, concerns of issues with acute symptoms not improving or if they worsen. See diagnoses and orders for additional plan(s). Allergies and medications were reviewed, list was updated, and refills given if needed. Past medical, surgical, social, and family history reviewed and updated as appropriate. Encouraged proper diet & exercise as well as compliance with taking medications. Age-appropriate health preventative measures were discussed. Return if symptoms worsen or fail to improve, for Keep next scheduled appointment.. JASWINDER Gutiérrez documented in this encounter [facility] 07-23-2023 Miscellaneous Notes ALIYAH 07/22/23 NOV 07/29/23 Sujey Rodriguez MA Patient has been identified by name and date of : Yes Requested Prescriptions Pending Prescriptions Disp Refills Phentermine HCl 37.5 mg tablet 30 tablet 0 Sig: Take 1 tablet by mouth once daily for 30 days. RX INSTRUCTIONS: Patient aware RX will be sent to pharmacy. No need to nofity patient. Controlled medication - must be call in. Sujey Maciel Pss documented in this encounter [facility] 07-22-2023 Note HNO ID: [id number] Author: Doreen Oliver APRN.TELECOMMUNICATIONS CLERK Service: ? Author Type: Nurse Practitioner Type: Progress Notes Filed: 07/22/2023 3:03 PM Note Text: SUBJECTIVE Lea Gomez is a 68 year old female here today for a check up on her medical problems. Chief Complaint Patient presents with: Recheck: weight check ER F/U: Anabel/Nitin 07/21/2023 for COPD flare up HPI Lea Gomez is a 68 year old female. Here today for weight follow up. Has been on phentermine and recently started metformin for weight management. Finishing up month 2 of phentermine. Starting weight 197, now 196. She actually is dealing with an acute COPD exacerbation. Was in the ER at [facility] on 07/21 due to concerns of COPD exacerbation. Same, not better but not worse. Some shortness of breath. Started on prednisone. Albuterol and nebulizer helping some. Allergic to duoneb. Still having cough, increased sputum. Her medications were reviewed today and her list is now up to date. Medications Current Outpatient Medications Medication Sig predniSONE (DELTASONE) 10 mg tablet Take 30 mg by mouth two times a day. guaiFENesin (MUCINEX) 600 mg 12 hr tablet Take 1,200 mg by mouth two times a day as needed for cold/allergy symptoms. promethazine (PHENERGAN) 25 mg tablet Take 1 tablet by mouth every 6 hours as needed for nausea/vomiting. Phentermine HCl 37.5 mg tablet Take 1 tablet by mouth once daily for 30 days. sertraline (ZOLOFT) 50 mg tablet Take 1 tablet by mouth once daily. ARIPiprazole (ABILIFY) 5 mg tablet Take 1 tablet by mouth once daily. benzonatate (TESSALON PERLE) 100 mg capsule Take 2 capsules by mouth every morning. EPINEPHrine (EPIPEN) 0.3 mg/0.3 mL auto-injector Inject 0.3 mL intramuscularly as needed. HYDROcodone-Acetaminophen (NORCO) 10-325 mg per tablet Take 1 tablet by mouth four times daily. dicyclomine (BENTYL) 20 mg tablet Take 1 tablet by mouth before meals and at bedtime. gabapentin (NEURONTIN) 300 mg capsule Take 1 capsule by mouth three times daily. aspirin, enteric coated (ASPIRIN, ENTERIC COATED) 81 mg EC tablet Take 81 mg by mouth once daily. tiotropium bromide (SPIRIVA WITH HANDIHALER INHALATION) Inhale 2 Puffs as instructed daily at bedtime. Acetaminophen 500 mg cap Take 1,000 mg by mouth as needed. albuterol (PROVENTIL) 2.5 mg /3 mL (0.083 %) nebulizer solution Inhale 2.5 mg as instructed every 6 hours as needed. albuterol HFA (PROVENTIL HFA, VENTOLIN HFA) 90 mcg/actuation inhaler Inhale 2 Puffs as instructed every 6 hours as needed. budesonide-formoterol (SYMBICORT) 160-4.5 mcg/actuation inhaler Inhale 2 Puffs as instructed as needed. Cholecalciferol, Vitamin D3, 25 mcg (1,000 unit) cap Take 1 capsule by mouth once daily. diazePAM (VALIUM) 5 mg tablet Take 1 tablet by mouth as needed. diclofenac, EC, (VOLTAREN) 75 mg EC tablet Take 1 tablet by mouth once daily. levothyroxine (SYNTHROID) 75 mcg tablet Take 88 mcg by mouth once daily. methocarbamol (ROBAXIN) 750 mg tablet Take 1 tablet by mouth twice daily. montelukast (SINGULAIR) 10 mg tablet Take 1 tablet by mouth as directed. omeprazole (PRILOSEC) 40 mg capsule Take 1 capsule by mouth twice daily. simvastatin (ZOCOR) 40 mg tablet Take 1 tablet by mouth once daily. levoFLOXacin (LEVAQUIN) 500 mg tablet Take 1 tablet by mouth once daily for 10 days. budesonide (PULMICORT) 0.5 mg/2 mL nebulizer solution Use 2 mL via nebulizer two times a day. amoxicillin-clavulanate potassium (AUGMENTIN) 875-125 mg per tablet Take 1 tablet by mouth two times a day for 7 days. (Patient not taking: Reported on 07/22/2023) metFORMIN (GLUCOPHAGE) 500 mg tablet Take 1 tablet by mouth two times a day with meals. (Patient not taking: Reported on 07/19/2023) WALKER ROLLATOR SEAT WITH 6 WHEELS - RED Rollator walker, please send to [facility] No current facility-administered medications for this visit. ALLERGIES Allergen Reactions [place] Unknown Depakote [Divalproe* Unknown Dilantin [Phenytoin] Unknown Ditropan [Oxybutyni* Unknown Influenza Virus Vac* Unknown Latex, Natural Rubb* Unknown Meloxicam (Bulk) Unknown Pravastatin Unknown Propofol Unknown Tetracycline Hcl (B* Unknown Tramadol Unknown Tylenol #3 [Codeine] Unknown Venom-Honey Bee Unknown ACTIVE PROBLEM LIST Hypoglycemia - 12/24/2022 Tia (Transient Ischemic Attack) - 12/24/2022 Chronic Obstructive Pulmonary Disease (Hcc) - 08/29/2022 Hyperlipidemia - 08/29/2022 Gastroesophageal Reflux Disease Without Esophagitis - 08/29/2022 Ptsd (Post-Traumatic Stress Disorder) - 08/29/2022 Major Depressive Disorder - 08/29/2022 Anxiety - 08/29/2022 Hypothyroidism - 08/29/2022 Vitamin D Deficiency - 08/29/2022 Scoliosis - 08/29/2022 Right Hip Pain - 08/29/2022 Femoral Loosening of Prosthetic Right Hip, Subsequent Encounter - 05/08/2022 Thyroid Nodule - 04/10/2022 Comment: 8/ (more content not included)... [facility] 07-22-2023 Miscellaneous Notes ok'd [facility] Kira asking if provider can change budesonide nebulizer solution to disp 120 ml. Reports it was written for 100 ml, but comes in 60 ml packages. Patient could get 2 of them to equal 120 ml. Pended. documented in this encounter [facility] 07-22-2023 History of Presen t illness Narrative SUBJECTIVE Lea Gomez is a 68 year old female here today for a check up on her medical problems. Chief Complaint Patient presents with: Recheck: weight check ER F/U: Anabel/Nitin 07/21/2023 for COPD flare up HPI Lea Gomez is a 68 year old female. Here today for weight follow up. Has been on phentermine and recently started metformin for weight management. Finishing up month 2 of phentermine. Starting weight 197, now 196. She actually is dealing with an acute COPD exacerbation. Was in the ER at [facility] on 07/21 due to concerns of COPD exacerbation. Same, not better but not worse. Some shortness of breath. Started on prednisone. Albuterol and nebulizer helping some. Allergic to duoneb. Still having cough, increased sputum. Her medications were reviewed today and her list is now up to date. Medications Current Outpatient Medications Medication Sig predniSONE (DELTASONE) 10 mg tablet Take 30 mg by mouth two times a day. guaiFENesin (MUCINEX) 600 mg 12 hr tablet Take 1,200 mg by mouth two times a day as needed for cold/allergy symptoms. promethazine (PHENERGAN) 25 mg tablet Take 1 tablet by mouth every 6 hours as needed for nausea/vomiting. Phentermine HCl 37.5 mg tablet Take 1 tablet by mouth once daily for 30 days. sertraline (ZOLOFT) 50 mg tablet Take 1 tablet by mouth once daily. ARIPiprazole (ABILIFY) 5 mg tablet Take 1 tablet by mouth once daily. benzonatate (TESSALON PERLE) 100 mg capsule Take 2 capsules by mouth every morning. EPINEPHrine (EPIPEN) 0.3 mg/0.3 mL auto-injector Inject 0.3 mL intramuscularly as needed. HYDROcodone-Acetaminophen (NORCO) 10-325 mg per tablet Take 1 tablet by mouth four times daily. dicyclomine (BENTYL) 20 mg tablet Take 1 tablet by mouth before meals and at bedtime. gabapentin (NEURONTIN) 300 mg capsule Take 1 capsule by mouth three times daily. aspirin, enteric coated (ASPIRIN, ENTERIC COATED) 81 mg EC tablet Take 81 mg by mouth once daily. tiotropium bromide (SPIRIVA WITH HANDIHALER INHALATION) Inhale 2 Puffs as instructed daily at bedtime. Acetaminophen 500 mg cap Take 1,000 mg by mouth as needed. albuterol (PROVENTIL) 2.5 mg /3 mL (0.083 %) nebulizer solution Inhale 2.5 mg as instructed every 6 hours as needed. albuterol HFA (PROVENTIL HFA, VENTOLIN HFA) 90 mcg/actuation inhaler Inhale 2 Puffs as instructed every 6 hours as needed. budesonide-formoterol (SYMBICORT) 160-4.5 mcg/actuation inhaler Inhale 2 Puffs as instructed as needed. Cholecalciferol, Vitamin D3, 25 mcg (1,000 unit) cap Take 1 capsule by mouth once daily. diazePAM (VALIUM) 5 mg tablet Take 1 tablet by mouth as needed. diclofenac, EC, (VOLTAREN) 75 mg EC tablet Take 1 tablet by mouth once daily. levothyroxine (SYNTHROID) 75 mcg tablet Take 88 mcg by mouth once daily. methocarbamol (ROBAXIN) 750 mg tablet Take 1 tablet by mouth twice daily. montelukast (SINGULAIR) 10 mg tablet Take 1 tablet by mouth as directed. omeprazole (PRILOSEC) 40 mg capsule Take 1 capsule by mouth twice daily. simvastatin (ZOCOR) 40 mg tablet Take 1 tablet by mouth once daily. levoFLOXacin (LEVAQUIN) 500 mg tablet Take 1 tablet by mouth once daily for 10 days. budesonide (PULMICORT) 0.5 mg/2 mL nebulizer solution Use 2 mL via nebulizer two times a day. amoxicillin-clavulanate potassium (AUGMENTIN) 875-125 mg per tablet Take 1 tablet by mouth two times a day for 7 days. (Patient not taking: Reported on 07/22/2023) metFORMIN (GLUCOPHAGE) 500 mg tablet Take 1 tablet by mouth two times a day with meals. (Patient not taking: Reported on 07/19/2023) WALKER ROLLATOR SEAT WITH 6 WHEELS - RED Rollator walker, please send to [facility] No current facility-administered medications for this visit. ALLERGIES Allergen Reactions [place] Unknown Depakote [Divalproe* Unknown Dilantin [Phenytoin] Unknown Ditropan [Oxybutyni* Unknown Influenza Virus Vac* Unknown Latex, Natural Rubb* Unknown Meloxicam (Bulk) Unknown Pravastatin Unknown Propofol Unknown Tetracycline Hcl (B* Unknown Tramadol Unknown Tylenol #3 [Codeine] Unknown Venom-Honey Bee Unknown ACTIVE PROBLEM LIST Hypoglycemia - 12/24/2022 Tia (Transient Ischemic Attack) - 12/24/2022 Chronic Obstructive Pulmonary Disease (Hcc) - 08/29/2022 Hyperlipidemia - 08/29/2022 Gastroesophageal Reflux Disease Without Esophagitis - 08/29/2022 Ptsd (Post-Traumatic Stress Disorder) - 08/29/2022 Major Depressive Disorder - 08/29/2022 Anxiety - 08/29/2022 Hypothyroidism - 08/29/2022 Vitamin D Deficiency - 08/29/2022 Scoliosis - 08/29/2022 Right Hip Pain - 08/29/2022 Femoral Loosening of Prosthetic Right Hip, Subsequent Encounter - 05/08/2022 Thyroid Nodule - 04/10/2022 Comment: 04/10/22: Multiple thyroid nodules found on US 12/22/21 (results reviewed and scanned to chart). Lesion in lower pole of right gland 1.4 cm, TR 4; recommended f/u in 1 year. Lesion at the lower pole of the left lobe 2.7 cm, TR 3; recommended FNA; ordered Social History Tobacco Use Smoking status: Never Smokeless tobacco: Never Vaping Use Vaping Use: Never used Substance Use Topics Alcohol use: Never Drug use: Never Review of Systems Respiratory: Positive for cough, shortness of breath and wheezing. Negative for apnea, choking, chest tightness and stridor. Cardiovascular: Negative. OBJECTIVE BP 112/78 Pulse 64 Wt 196 lb (88.9kg) SpO2 99% Physical Exam Vitals and nursing note reviewed. Constitutional: General: She is awake. She is not in acute distress. Appearance: Normal appearance. She is well-developed and well-groomed. She is not ill-appearing, toxic-appearing or diaphoretic. HENT: Head: Normocephalic. Right Ear: External ear normal. Left Ear: External ear normal. Nose: Nose normal. Eyes: General: Vision grossly intact. Conjunctiva/sclera: Conjunctivae normal. Pupils: Pupils are equal, round, and reactive to light. Neck: Vascular: No JVD. Trachea: Trachea normal. Cardiovascular: Rate and Rhythm: Normal rate and regular rhythm. Pulses: Normal pulses. Heart sounds: Normal heart sounds. No murmur heard. Pulmonary: Effort: Pulmonary effort is normal. No accessory muscle usage, prolonged expiration or respiratory distress. Breath sounds: Examination of the right-lower field reveals decreased breath sounds and wheezing. Examination of the left-lower field reveals decreased breath sounds and wheezing. Decreased breath sounds and wheezing present. No rhonchi or rales. Musculoskeletal: Cervical back: Neck supple. Skin: General: Skin is warm and dry. Capillary Refill: Capillary refill takes less than 2 seconds. Neurological: General: No focal deficit present. Mental Status: She is alert and oriented to person, place, and time. Mental status is at baseline. Psychiatric: Attention and Perception: Attention and perception normal. Mood and Affect: Mood and affect normal. Speech: Speech normal. Behavior: Behavior normal. Behavior is cooperative. Thought Content: Thought content normal. Cognition and Memory: Cognition and memory normal. Judgment: Judgment normal. ASSESSMENT/PLAN: 1. COPD with exacerbation (HCC) - ICD9: 491.21, ICD10: J44.1 (primary diagnosis) Continue with current treatment, add Levaquin and replace Symbicort with Pulmicort for right now. - BUDESONIDE 0.5 MG/2 ML SUSPENSION FOR NEBULIZATION - LEVOFLOXACIN 500 MG TABLET 2. Class 1 obesity due to excess calories with serious comorbidity and body mass index (BMI) of 32.0 to 32.9 in adult - ICD9: 278.00, V85.32, ICD10: E66.09, Z68.32 Stable - Behavioral intervention, - Pharmacological intervention, and - Continue current medications Doreen Oliver APRN.TELECOMMUNICATIONS CLERK Portions of this note have been entered by ancillary staff. I have reviewed and when necessary edited, so that they are an adequate record of my encounter with this patient Please note that parts of this document were created using voice recognition software and therefore may contain grammatical errors. Patient verbalizes understanding of instructions from today's visit and in agreement with treatment plan. Questions answered. Agrees to call the office if questions, concerns of issues with acute symptoms not improving or if they worsen. See diagnoses and orders for additional plan(s). Allergies and medications were reviewed, list was updated, and refills given if needed. Past medical, surgical, social, and family history reviewed and updated as appropriate. Encouraged proper diet & exercise as well as compliance with taking medications. Age-appropriate health preventative measures were discussed. Return in about 1 week (around 07/29/2023) for recheck COPD. JASWINDER Gutiérrez documented in this encounter [facility] 07-19-2023 Note HNO ID: [id number] Author: Luisa Kirby APRN.CNP Service: ? Author Type: Nurse Practitioner Type: Progress Notes Filed: 07/19/2023 12:04 PM Note Text: CC: Patient presents with: coughing up yellow and brown HPI: Lea Gomez is a 68 year old female who presents to the office with above complaint. Symptoms began one week ago and are getting worse. She was seen in the ER and by her apparatus engineering technologist two days ago and was prescribed prednisone. Chest x-ray, EKG and labs were all normal. She was negative for flu, RSV and COVID. Symptoms include: Fever (?100.4F): No Chills: No Cough: Yes, productive with thick green and brown sputum. Coughing more than usual with COPD Shortness of breath: Yes Fatigue: Yes Muscle aches: No Headache: Yes New loss of smell or taste: No Sore throat: No Nasal congestion: No Rhinorrhea: Yes, thick green Nausea and/or vomiting: No Diarrhea: No Other Associated symptoms: wheezing. PMH: asthma and COPD OTC meds/remedies that patient has tried: OTC cough syrup and throat lozenges. Exposures: Sick contacts? No Family or close contacts with confirmed/probable COVID-19 in last 14 days? 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% Depression Dysphagia Glaucoma History of heart attack Migraine, intractable Osteoarthritis of multiple joints Sciatica Spinal cord injury at C1-C4 level (HCC) Stroke (HCC) PAST SURGICAL HISTORY Procedure Laterality Date BREAST LUMPECTOMY HX Left x3 REMOVAL GALLBLADDER TOTAL ABDOM HYSTERECTOMY 1970 ALLERGIES [place]; Depakote [Divalproex]; Dilantin [Phenytoin]; Ditropan [Oxybutynin]; Influenza Virus Vaccines; Latex, Natural Rubber; Meloxicam (Bulk); Pravastatin; Propofol; Tetracycline Hcl (Bulk); Tramadol; Tylenol #3 [Codeine]; and Venom-Honey Bee MEDICATIONS promethazine (PHENERGAN) 25 mg tablet Take 1 tablet by mouth every 6 hours as needed for nausea/vomiting. Phentermine HCl 37.5 mg tablet Take 1 tablet by mouth once daily for 30 days. metFORMIN (GLUCOPHAGE) 500 mg tablet Take 1 tablet by mouth two times a day with meals. (Patient not taking: Reported on 07/19/2023) sertraline (ZOLOFT) 50 mg tablet Take 1 tablet by mouth once daily. ARIPiprazole (ABILIFY) 5 mg tablet Take 1 tablet by mouth once daily. benzonatate (TESSALON PERLE) 100 mg capsule Take 2 capsules by mouth every morning. EPINEPHrine (EPIPEN) 0.3 mg/0.3 mL auto-injector Inject 0.3 mL intramuscularly as needed. HYDROcodone-Acetaminophen (NORCO) 10-325 mg per tablet Take 1 tablet by mouth four times daily. dicyclomine (BENTYL) 20 mg tablet Take 1 tablet by mouth before meals and at bedtime. gabapentin (NEURONTIN) 300 mg capsule Take 1 capsule by mouth three times daily. WALKER ROLLATOR SEAT WITH 6 WHEELS - RED Rollator walker, please send to [facility] [employer] aspirin, enteric coated (ASPIRIN, ENTERIC COATED) 81 mg EC tablet Take 81 mg by mouth once daily. tiotropium bromide (SPIRIVA WITH HANDIHALER INHALATION) Inhale 2 Puffs as instructed daily at bedtime. Acetaminophen 500 mg cap Take 1,000 mg by mouth as needed. albuterol (PROVENTIL) 2.5 mg /3 mL (0.083 %) nebulizer solution Inhale 2.5 mg as instructed every 6 hours as needed. albuterol HFA (PROVENTIL HFA, VENTOLIN HFA) 90 mcg/actuation inhaler Inhale 2 Puffs as instructed every 6 hours as needed. budesonide-formoterol (SYMBICORT) 160-4.5 mcg/actuation inhaler Inhale 2 Puffs as instructed as needed. Cholecalciferol, Vitamin D3, 25 mcg (1,000 unit) cap Take 1 capsule by mouth once daily. diazePAM (VALIUM) 5 mg tablet Take 1 tablet by mouth as needed. diclofenac, EC, (VOLTAREN) 75 mg EC tablet Take 1 tablet by mouth once daily. levothyroxine (SYNTHROID) 75 mcg tablet Take 88 mcg by mouth once daily. methocarbamol (ROBAXIN) 750 mg tablet Take 1 tablet by mouth twice daily. montelukast (SINGULAIR) 10 mg tablet Take 1 tablet by mouth as directed. omeprazole (PRILOSEC) 40 mg capsule Take 1 capsule by mouth twice daily. simvastatin (ZOCOR) 40 mg tablet Take 1 tablet by mouth once daily. FAMILY HISTORY Adopted: Yes Social History Tobacco Use Smoking status: Never Smokeless tobacco: Never Vaping Use Vaping Use: Never used Substance Use Topics Alcohol use: Never Drug use: Never BP 98/60 Pulse 91 Temp 36.9 ?C (98.5 ?F) (Temporal) Resp 22 Wt 89.8 kg (198 lb) LMP (LMP Unknown) SpO2 97% BMI 32.95 kg/m? Physical Exam Vitals reviewed. Constitutional: General: She is not in acute distress. Appearance: She is ill-appearing. HENT: Nose: Nose normal. Right Sinus: No maxillary sinus tenderness or frontal sinus tenderness. Left Sinus: No maxillary sinus tenderness or frontal sinus tenderness. Mouth/Throat: Lips: [place]art. Mout (more content not included)... [facility] 07-19-2023 History of Presen t illness Narrative CC: Patient presents with: coughing up yellow and brown HPI: Lea Gomez is a 68 year old female who presents to the office with above complaint. Symptoms began one week ago and are getting worse. She was seen in the ER and by her apparatus engineering technologist two days ago and was prescribed prednisone. Chest x-ray, EKG and labs were all normal. She was negative for flu, RSV and COVID. Symptoms include: Fever (?100.4F): No Chills: No Cough: Yes, productive with thick green and brown sputum. Coughing more than usual with COPD Shortness of breath: Yes Fatigue: Yes Muscle aches: No Headache: Yes New loss of smell or taste: No Sore throat: No Nasal congestion: No Rhinorrhea: Yes, thick green Nausea and/or vomiting: No Diarrhea: No Other Associated symptoms: wheezing. PMH: asthma and COPD OTC meds/remedies that patient has tried: OTC cough syrup and throat lozenges. Exposures: Sick contacts? No Family or close contacts with confirmed/probable COVID-19 in last 14 days? 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% Depression Dysphagia Glaucoma History of heart attack Migraine, intractable Osteoarthritis of multiple joints Sciatica Spinal cord injury at C1-C4 level (HCC) Stroke (HCC) PAST SURGICAL HISTORY Procedure Laterality Date BREAST LUMPECTOMY HX Left x3 REMOVAL GALLBLADDER TOTAL ABDOM HYSTERECTOMY 1970 ALLERGIES [place]; Depakote [Divalproex]; Dilantin [Phenytoin]; Ditropan [Oxybutynin]; Influenza Virus Vaccines; Latex, Natural Rubber; Meloxicam (Bulk); Pravastatin; Propofol; Tetracycline Hcl (Bulk); Tramadol; Tylenol #3 [Codeine]; and Venom-Honey Bee MEDICATIONS promethazine (PHENERGAN) 25 mg tablet Take 1 tablet by mouth every 6 hours as needed for nausea/vomiting. Phentermine HCl 37.5 mg tablet Take 1 tablet by mouth once daily for 30 days. metFORMIN (GLUCOPHAGE) 500 mg tablet Take 1 tablet by mouth two times a day with meals. (Patient not taking: Reported on 07/19/2023) sertraline (ZOLOFT) 50 mg tablet Take 1 tablet by mouth once daily. ARIPiprazole (ABILIFY) 5 mg tablet Take 1 tablet by mouth once daily. benzonatate (TESSALON PERLE) 100 mg capsule Take 2 capsules by mouth every morning. EPINEPHrine (EPIPEN) 0.3 mg/0.3 mL auto-injector Inject 0.3 mL intramuscularly as needed. HYDROcodone-Acetaminophen (NORCO) 10-325 mg per tablet Take 1 tablet by mouth four times daily. dicyclomine (BENTYL) 20 mg tablet Take 1 tablet by mouth before meals and at bedtime. gabapentin (NEURONTIN) 300 mg capsule Take 1 capsule by mouth three times daily. WALKER ROLLATOR SEAT WITH 6 WHEELS - RED Rollator walker, [facility] aspirin, enteric coated (ASPIRIN, ENTERIC COATED) 81 mg EC tablet Take 81 mg by mouth once daily. tiotropium bromide (SPIRIVA WITH HANDIHALER INHALATION) Inhale 2 Puffs as instructed daily at bedtime. Acetaminophen 500 mg cap Take 1,000 mg by mouth as needed. albuterol (PROVENTIL) 2.5 mg /3 mL (0.083 %) nebulizer solution Inhale 2.5 mg as instructed every 6 hours as needed. albuterol HFA (PROVENTIL HFA, VENTOLIN HFA) 90 mcg/actuation inhaler Inhale 2 Puffs as instructed every 6 hours as needed. budesonide-formoterol (SYMBICORT) 160-4.5 mcg/actuation inhaler Inhale 2 Puffs as instructed as needed. Cholecalciferol, Vitamin D3, 25 mcg (1,000 unit) cap Take 1 capsule by mouth once daily. diazePAM (VALIUM) 5 mg tablet Take 1 tablet by mouth as needed. diclofenac, EC, (VOLTAREN) 75 mg EC tablet Take 1 tablet by mouth once daily. levothyroxine (SYNTHROID) 75 mcg tablet Take 88 mcg by mouth once daily. methocarbamol (ROBAXIN) 750 mg tablet Take 1 tablet by mouth twice daily. montelukast (SINGULAIR) 10 mg tablet Take 1 tablet by mouth as directed. omeprazole (PRILOSEC) 40 mg capsule Take 1 capsule by mouth twice daily. simvastatin (ZOCOR) 40 mg tablet Take 1 tablet by mouth once daily. FAMILY HISTORY Adopted: Yes Social History Tobacco Use Smoking status: Never Smokeless tobacco: Never Vaping Use Vaping Use: Never used Substance Use Topics Alcohol use: Never Drug use: Never BP 98/60 Pulse 91 Temp 36.9 C (98.5 F) (Temporal) Resp 22 Wt 89.8 kg (198 lb) LMP (LMP Unknown) SpO2 97% BMI 32.95 kg/m Physical Exam Vitals reviewed. Constitutional: General: She is not in acute distress. Appearance: She is ill-appearing. HENT: Nose: Nose normal. Right Sinus: No maxillary sinus tenderness or frontal sinus tenderness. Left Sinus: No maxillary sinus tenderness or frontal sinus tenderness. Mouth/Throat: Lips: Dewart. Mouth: Mucous membranes are moist. Pharynx: Oropharynx is clear. Eyes: Conjunctiva/sclera: Conjunctivae normal. Cardiovascular: Rate and Rhythm: Normal rate and regular rhythm. Heart sounds: Normal heart sounds. No murmur heard. Pulmonary: Effort: Pulmonary effort is normal. Breath sounds: Normal breath sounds and air entry. No wheezing, rhonchi or rales. Comments: Some conversational dyspnea noted Musculoskeletal: Cervical back: Neck supple. Lymphadenopathy: Cervical: No cervical adenopathy. Skin: General: Skin is warm and dry. Neurological: Mental Status: She is alert. ASSESSMENT/PLAN: 1. COPD with exacerbation (HCC) - ICD9: 491.21, ICD10: J44.1 Increased cough with purulent sputum and worsening of chronic SOB - start treatment with Augmentin x 7 days - continue with prednisone, cough medicine and inhalers - follow-up in 3 to 5 days if no improvement, she has routine follow-up scheduled with PCP on Saturday Prescription instructions reviewed with patient as applicable. Potential red flag symptoms discussed with the patient. Reviewed appropriate action plan to take if red flag symptoms occur. Patient agreeable to treatment plan. Luisa Kirby APRN.WHITNEY documented in this encounter [facility] 07-09-2023 Note Patient Outreach (IN [facility]) LEA GOMEZ ([id number]) 1955 F DEF Date Time Provider Department 07/09/23 DOREEN OLIVER During your visit today, we recorded the following information about you: Allergies As of Date: 07/09/2023 Noted Allergy Reaction [facility] 09/18/2022 16 - Unknown DEPAKOTE (DIVALPROEX) 09/18/2022 16 - Unknown DILANTIN (PHENYTOIN) 09/18/2022 16 - Unknown DITROPAN (OXYBUTYNIN) 09/18/2022 16 - Unknown INFLUENZA VIRUS VACCINES 09/18/2022 16 - Unknown LATEX, NATURAL RUBBER 09/18/2022 16 - Unknown MELOXICAM (BULK) 09/18/2022 16 - Unknown PRAVASTATIN 09/18/2022 16 - Unknown PROPOFOL 09/18/2022 16 - Unknown TETRACYCLINE HCL (BULK) 09/18/2022 16 - Unknown TRAMADOL 09/18/2022 16 - Unknown TYLENOL #3 (CODEINE) 09/18/2022 16 - Unknown VENOM-HONEY BEE 09/18/2022 16 - Unknown Date Reviewed: 06/24/2023 Reviewed by: Veronica Riley LPN - Fully Assessed Visit Diagnosis:Hyperlipidemia [E78.5] Order(s):LIPID PANEL BASIC [SQLIPB] Order #: [id number] FUTURE Prescriptions as of 07/12/2023 - promethazine (PHENERGAN) 25 mg tablet Take 1 tablet by mouth every 6 hours as needed for nausea/vomiting. - Phentermine HCl 37.5 mg tablet Take 1 tablet by mouth once daily for 30 days. - metFORMIN (GLUCOPHAGE) 500 mg tablet Take 1 tablet by mouth two times a day with meals. - sertraline (ZOLOFT) 50 mg tablet Take 1 tablet by mouth once daily. - ARIPiprazole (ABILIFY) 5 mg tablet Take 1 tablet by mouth once daily. - benzonatate (TESSALON PERLE) 100 mg capsule Take 2 capsules by mouth every morning. - EPINEPHrine (EPIPEN) 0.3 mg/0.3 mL auto-injector Inject 0.3 mL intramuscularly as needed. - HYDROcodone-Acetaminophen (NORCO) 10-325 mg per tablet Take 1 tablet by mouth four times daily. - dicyclomine (BENTYL) 20 mg tablet Take 1 tablet by mouth before meals and at bedtime. - gabapentin (NEURONTIN) 300 mg capsule Take 1 capsule by mouth three times daily. - WALKER ROLLATOR SEAT WITH 6 WHEELS - RED Rollator walker, please send to [facility] - aspirin, enteric coated (ASPIRIN, ENTERIC COATED) 81 mg EC tablet Take 81 mg by mouth once daily. - tiotropium bromide (SPIRIVA WITH HANDIHALER INHALATION) Inhale 2 Puffs as instructed daily at bedtime. - Acetaminophen 500 mg cap Take 1,000 mg by mouth as needed. - albuterol (PROVENTIL) 2.5 mg /3 mL (0.083 %) nebulizer solution Inhale 2.5 mg as instructed every 6 hours as needed. - albuterol HFA (PROVENTIL HFA, VENTOLIN HFA) 90 mcg/actuation inhaler Inhale 2 Puffs as instructed every 6 hours as needed. - budesonide-formoterol (SYMBICORT) 160-4.5 mcg/actuation inhaler Inhale 2 Puffs as instructed as needed. - Cholecalciferol, Vitamin D3, 25 mcg (1,000 unit) cap Take 1 capsule by mouth once daily. - diazePAM (VALIUM) 5 mg tablet Take 1 tablet by mouth as needed. - diclofenac, EC, (VOLTAREN) 75 mg EC tablet Take 1 tablet by mouth once daily. - levothyroxine (SYNTHROID) 75 mcg tablet Take 88 mcg by mouth once daily. - methocarbamol (ROBAXIN) 750 mg tablet Take 1 tablet by mouth twice daily. - montelukast (SINGULAIR) 10 mg tablet Take 1 tablet by mouth as directed. - omeprazole (PRILOSEC) 40 mg capsule Take 1 capsule by mouth twice daily. - simvastatin (ZOCOR) 40 mg tablet Take 1 tablet by mouth once daily. Problem List As Of Date 07/09/2023 Noted Resolved Chronic obstructive pulmonary disease (HCC) [J4*08/29/2022 Hyperlipidemia [E78.5] 08/29/2022 Gastroesophageal reflux disease without esophag*08/29/2022 PTSD (post-traumatic stress disorder) [F43.10] 08/29/2022 Major depressive disorder [F32.9] 08/29/2022 Anxiety [F41.9] 08/29/2022 Hypothyroidism [E03.9] 08/29/2022 Vitamin D deficiency [E55.9] 08/29/2022 Scoliosis [M41.9] 08/29/2022 Right hip pain [M25.551] 08/29/2022 Femoral loosening of prosthetic right hip, subs*05/08/2022 Thyroid nodule [E04.1] 04/10/2022 Hypoglycemia [E16.2] 12/24/2022 TIA (transient ischemic attack) [G45.9] 12/24/2022 Encounter Status:Closed by ELAINE CISNEROS on 07/12/23 [facility] 06-24-2023 Note HNO ID: [id number] Author: Doreen Oliver APRN.WHITNEY Service: ? Author Type: Nurse Practitioner Type: Progress Notes Filed: 06/24/2023 4:38 PM Note Text: SUBJECTIVE Lea Gomez is a 68 year old female here today for a check up on her medical problems. Chief Complaint Patient presents with: Recheck JOELLEN Lea Gomez is a 68 year old female. Here for weight follow up. Has been on x1 month of phentermine, ready to start month 2. Weight last month was 197, today 197. Trying to stay as active as her chronic conditions allow her to be. Working on diet to focus on lean protein and vegetables, trying to limit carbs. No issues with side effects with her current medications for weight loss. Sleeping okay. Has increased stress right now. Her medications were reviewed today and her list is now up to date. Medications Current Outpatient Medications Medication Sig sertraline (ZOLOFT) 50 mg tablet Take 1 tablet by mouth once daily. ARIPiprazole (ABILIFY) 5 mg tablet Take 1 tablet by mouth once daily. benzonatate (TESSALON PERLE) 100 mg capsule Take 2 capsules by mouth every morning. EPINEPHrine (EPIPEN) 0.3 mg/0.3 mL auto-injector Inject 0.3 mL intramuscularly as needed. HYDROcodone-Acetaminophen (NORCO) 10-325 mg per tablet Take 1 tablet by mouth four times daily. dicyclomine (BENTYL) 20 mg tablet Take 1 tablet by mouth before meals and at bedtime. gabapentin (NEURONTIN) 300 mg capsule Take 1 capsule by mouth three times daily. aspirin, enteric coated (ASPIRIN, ENTERIC COATED) 81 mg EC tablet Take 81 mg by mouth once daily. tiotropium bromide (SPIRIVA WITH HANDIHALER INHALATION) Inhale 2 Puffs as instructed daily at bedtime. Acetaminophen 500 mg cap Take 1,000 mg by mouth as needed. albuterol (PROVENTIL) 2.5 mg /3 mL (0.083 %) nebulizer solution Inhale 2.5 mg as instructed every 6 hours as needed. albuterol HFA (PROVENTIL HFA, VENTOLIN HFA) 90 mcg/actuation inhaler Inhale 2 Puffs as instructed every 6 hours as needed. budesonide-formoterol (SYMBICORT) 160-4.5 mcg/actuation inhaler Inhale 2 Puffs as instructed as needed. Cholecalciferol, Vitamin D3, 25 mcg (1,000 unit) cap Take 1 capsule by mouth once daily. diazePAM (VALIUM) 5 mg tablet Take 1 tablet by mouth as needed. diclofenac, EC, (VOLTAREN) 75 mg EC tablet Take 1 tablet by mouth once daily. levothyroxine (SYNTHROID) 75 mcg tablet Take 88 mcg by mouth once daily. methocarbamol (ROBAXIN) 750 mg tablet Take 1 tablet by mouth twice daily. montelukast (SINGULAIR) 10 mg tablet Take 1 tablet by mouth as directed. omeprazole (PRILOSEC) 40 mg capsule Take 1 capsule by mouth twice daily. simvastatin (ZOCOR) 40 mg tablet Take 1 tablet by mouth once daily. promethazine (PHENERGAN) 25 mg tablet Take 1 tablet by mouth every 6 hours as needed for nausea/vomiting. Phentermine HCl 37.5 mg tablet Take 1 tablet by mouth once daily for 30 days. metFORMIN (GLUCOPHAGE) 500 mg tablet Take 1 tablet by mouth two times a day with meals. WALKER ROLLATOR SEAT WITH 6 WHEELS - RED Rollator walker, please send to [facility] No current facility-administered medications for this visit. ALLERGIES Allergen Reactions [place] Unknown Depakote [Divalproe* Unknown Dilantin [Phenytoin] Unknown Ditropan [Oxybutyni* Unknown Influenza Virus Vac* Unknown Latex, Natural Rubb* Unknown Meloxicam (Bulk) Unknown Pravastatin Unknown Propofol Unknown Tetracycline Hcl (B* Unknown Tramadol Unknown Tylenol #3 [Codeine] Unknown Venom-Honey Bee Unknown ACTIVE PROBLEM LIST Hypoglycemia - 12/24/2022 Tia (Transient Ischemic Attack) - 12/24/2022 Chronic Obstructive Pulmonary Disease (Hcc) - 08/29/2022 Hyperlipidemia - 08/29/2022 Gastroesophageal Reflux Disease Without Esophagitis - 08/29/2022 Ptsd (Post-Traumatic Stress Disorder) - 08/29/2022 Major Depressive Disorder - 08/29/2022 Anxiety - 08/29/2022 Hypothyroidism - 08/29/2022 Vitamin D Deficiency - 08/29/2022 Scoliosis - 08/29/2022 Right Hip Pain - 08/29/2022 Femoral Loosening of Prosthetic Right Hip, Subsequent Encounter - 05/08/2022 Thyroid Nodule - 04/10/2022 Comment: 04/10/22: Multiple thyroid nodules found on US 12/22/21 (results reviewed and scanned to chart). Lesion in lower pole of right gland 1.4 cm, TR 4; recommended f/u in 1 year. Lesion at the lower pole of the left lobe 2.7 cm, TR 3; recommended FNA; ordered Social History Tobacco Use Smoking status: Never Smokeless tobacco: Never Vaping Use Vaping Use: Never used Substance Use Topics Alcohol use: Never Drug use: Never Review of Systems Respiratory: Negative. Cardiovascular: Negative. OBJECTIVE BP 100/68 Pulse 82 Wt 197 lb (89.4kg) SpO2 97% Physical Exam Vitals and nursing note reviewed. Constitutional: General: She is awake. She is not in acute distress. Appearance: Normal appearance. She is well-develo (more content not included)... [facility] 06-24-2023 History of Presen t illness Narrative SUBJECTIVE Lea Gomez is a 68 year old female here today for a check up on her medical problems. Chief Complaint Patient presents with: Recheck HPI Lea Gomez is a 68 year old female. Here for weight follow up. Has been on x1 month of phentermine, ready to start month 2. Weight last month was 197, today 197. Trying to stay as active as her chronic conditions allow her to be. Working on diet to focus on lean protein and vegetables, trying to limit carbs. No issues with side effects with her current medications for weight loss. Sleeping okay. Has increased stress right now. Her medications were reviewed today and her list is now up to date. Medications Current Outpatient Medications Medication Sig sertraline (ZOLOFT) 50 mg tablet Take 1 tablet by mouth once daily. ARIPiprazole (ABILIFY) 5 mg tablet Take 1 tablet by mouth once daily. benzonatate (TESSALON PERLE) 100 mg capsule Take 2 capsules by mouth every morning. EPINEPHrine (EPIPEN) 0.3 mg/0.3 mL auto-injector Inject 0.3 mL intramuscularly as needed. HYDROcodone-Acetaminophen (NORCO) 10-325 mg per tablet Take 1 tablet by mouth four times daily. dicyclomine (BENTYL) 20 mg tablet Take 1 tablet by mouth before meals and at bedtime. gabapentin (NEURONTIN) 300 mg capsule Take 1 capsule by mouth three times daily. aspirin, enteric coated (ASPIRIN, ENTERIC COATED) 81 mg EC tablet Take 81 mg by mouth once daily. tiotropium bromide (SPIRIVA WITH HANDIHALER INHALATION) Inhale 2 Puffs as instructed daily at bedtime. Acetaminophen 500 mg cap Take 1,000 mg by mouth as needed. albuterol (PROVENTIL) 2.5 mg /3 mL (0.083 %) nebulizer solution Inhale 2.5 mg as instructed every 6 hours as needed. albuterol HFA (PROVENTIL HFA, VENTOLIN HFA) 90 mcg/actuation inhaler Inhale 2 Puffs as instructed every 6 hours as needed. budesonide-formoterol (SYMBICORT) 160-4.5 mcg/actuation inhaler Inhale 2 Puffs as instructed as needed. Cholecalciferol, Vitamin D3, 25 mcg (1,000 unit) cap Take 1 capsule by mouth once daily. diazePAM (VALIUM) 5 mg tablet Take 1 tablet by mouth as needed. diclofenac, EC, (VOLTAREN) 75 mg EC tablet Take 1 tablet by mouth once daily. levothyroxine (SYNTHROID) 75 mcg tablet Take 88 mcg by mouth once daily. methocarbamol (ROBAXIN) 750 mg tablet Take 1 tablet by mouth twice daily. montelukast (SINGULAIR) 10 mg tablet Take 1 tablet by mouth as directed. omeprazole (PRILOSEC) 40 mg capsule Take 1 capsule by mouth twice daily. simvastatin (ZOCOR) 40 mg tablet Take 1 tablet by mouth once daily. promethazine (PHENERGAN) 25 mg tablet Take 1 tablet by mouth every 6 hours as needed for nausea/vomiting. Phentermine HCl 37.5 mg tablet Take 1 tablet by mouth once daily for 30 days. metFORMIN (GLUCOPHAGE) 500 mg tablet Take 1 tablet by mouth two times a day with meals. WALKER ROLLATOR SEAT WITH 6 WHEELS - RED Rollator walker, please send to [facility] No current facility-administered medications for this visit. ALLERGIES Allergen Reactions [place] Unknown Depakote [Divalproe* Unknown Dilantin [Phenytoin] Unknown Ditropan [Oxybutyni* Unknown Influenza Virus Vac* Unknown Latex, Natural Rubb* Unknown Meloxicam (Bulk) Unknown Pravastatin Unknown Propofol Unknown Tetracycline Hcl (B* Unknown Tramadol Unknown Tylenol #3 [Codeine] Unknown Venom-Honey Bee Unknown ACTIVE PROBLEM LIST Hypoglycemia - 12/24/2022 Tia (Transient Ischemic Attack) - 12/24/2022 Chronic Obstructive Pulmonary Disease (Hcc) - 08/29/2022 Hyperlipidemia - 08/29/2022 Gastroesophageal Reflux Disease Without Esophagitis - 08/29/2022 Ptsd (Post-Traumatic Stress Disorder) - 08/29/2022 Major Depressive Disorder - 08/29/2022 Anxiety - 08/29/2022 Hypothyroidism - 08/29/2022 Vitamin D Deficiency - 08/29/2022 Scoliosis - 08/29/2022 Right Hip Pain - 08/29/2022 Femoral Loosening of Prosthetic Right Hip, Subsequent Encounter - 05/08/2022 Thyroid Nodule - 04/10/2022 Comment: 04/10/22: Multiple thyroid nodules found on US 12/22/21 (results reviewed and scanned to chart). Lesion in lower pole of right gland 1.4 cm, TR 4; recommended f/u in 1 year. Lesion at the lower pole of the left lobe 2.7 cm, TR 3; recommended FNA; ordered Social History Tobacco Use Smoking status: Never Smokeless tobacco: Never Vaping Use Vaping Use: Never used Substance Use Topics Alcohol use: Never Drug use: Never Review of Systems Respiratory: Negative. Cardiovascular: Negative. OBJECTIVE BP 100/68 Pulse 82 Wt 197 lb (89.4kg) SpO2 97% Physical Exam Vitals and nursing note reviewed. Constitutional: General: She is awake. She is not in acute distress. Appearance: Normal appearance. She is well-developed and well-groomed. She is not ill-appearing, toxic-appearing or diaphoretic. HENT: Head: Normocephalic. Right Ear: External ear normal. Left Ear: External ear normal. Nose: Nose normal. Eyes: General: Vision grossly intact. Conjunctiva/sclera: Conjunctivae normal. Pupils: Pupils are equal, round, and reactive to light. Neck: Vascular: No JVD. Trachea: Trachea normal. Cardiovascular: Rate and Rhythm: Normal rate and regular rhythm. Pulses: Normal pulses. Heart sounds: Normal heart sounds. No murmur heard. Pulmonary: Effort: Pulmonary effort is normal. No accessory muscle usage, prolonged expiration or respiratory distress. Breath sounds: Normal breath sounds. Musculoskeletal: Cervical back: Neck supple. Skin: General: Skin is warm and dry. Capillary Refill: Capillary refill takes less than 2 seconds. Neurological: General: No focal deficit present. Mental Status: She is alert and oriented to person, place, and time. Mental status is at baseline. Psychiatric: Attention and Perception: Attention and perception normal. Mood and Affect: Mood and affect normal. Speech: Speech normal. Behavior: Behavior normal. Behavior is cooperative. Thought Content: Thought content normal. Cognition and Memory: Cognition and memory normal. Judgment: Judgment normal. ASSESSMENT/PLAN: 1. Class 1 obesity due to excess calories with serious comorbidity and body mass index (BMI) of 32.0 to 32.9 in adult - ICD9: 278.00, V85.32, ICD10: E66.09, Z68.32 (primary diagnosis) Stable - Behavioral intervention, - Pharmacological intervention, - Continue current medications, and - Add Metformin - PHENTERMINE 37.5 MG TABLET 2. Recent weight gain - ICD9: 783.1, ICD10: R63.5 Add metformin too. - PHENTERMINE 37.5 MG TABLET 3. Nausea - ICD9: 787.02, ICD10: R11.0 - PROMETHAZINE 25 MG TABLET Portions of this note have been entered by ancillary staff. I have reviewed and when necessary edited, so that they are an adequate record of my encounter with this patient Please note that parts of this document were created using voice recognition software and therefore may contain grammatical errors. Patient verbalizes understanding of instructions from today's visit and in agreement with treatment plan. Questions answered. Agrees to call the office if questions, concerns of issues with acute symptoms not improving or if they worsen. See diagnoses and orders for additional plan(s). Allergies and medications were reviewed, list was updated, and refills given if needed. Past medical, surgical, social, and family history reviewed and updated as appropriate. Encouraged proper diet & exercise as well as compliance with taking medications. Age-appropriate health preventative measures were discussed. Return in about 4 weeks (around 07/22/2023), or if symptoms worsen or fail to improve, for recheck on new medication.. Doreen Oliver APRN-WHITNEY documented in this encounter [facility] 05-27-2023 Note HNO ID: [id number] Author: Doreen Oliver APRN.CNP Service: ? Author Type: Nurse Practitioner Type: Progress Notes Filed: 05/27/2023 4:45 PM Note Text: SUBJECTIVE Lea Gomez is a 67 year old female here today for a check up on her medical problems. Chief Complaint Patient presents with: Recheck: 4 month Weight Problem: question thyroid issues HPI Lea Gomez is a 67 year old female. Presents today due to concerns of weight continuing to increase. Talked with mental health provider and they do not want to make changes since she is doing well. She notes overall she is sleeping okay. Stress with weight gain, moving, bought a house. Daily intake is about 2 cups of coffee, creamer (not much), 2 pm first meal, pizza or lasagna, water.Going to PT twice a week and working out other days at the PT gym. 5 days. Recumbent bike, weight lifting for upper body, balance. Discussed previously could look at use of Wellbutrin but mood issues. Does not note much cravings, snacking. Recent labs with normal TSH, normal hgba1c. Reviewed recent ECHO and EKG, stable. Her medications were reviewed today and her list is now up to date. Medications Current Outpatient Medications Medication Sig sertraline (ZOLOFT) 50 mg tablet Take 1 tablet by mouth once daily. ARIPiprazole (ABILIFY) 5 mg tablet Take 1 tablet by mouth once daily. benzonatate (TESSALON PERLE) 100 mg capsule Take 2 capsules by mouth every morning. EPINEPHrine (EPIPEN) 0.3 mg/0.3 mL auto-injector Inject 0.3 mL intramuscularly as needed. HYDROcodone-Acetaminophen (NORCO) 10-325 mg per tablet Take 1 tablet by mouth four times daily. dicyclomine (BENTYL) 20 mg tablet Take 1 tablet by mouth before meals and at bedtime. promethazine (PHENERGAN) 25 mg tablet Take 1 tablet by mouth every 6 hours as needed for nausea/vomiting. gabapentin (NEURONTIN) 300 mg capsule Take 1 capsule by mouth three times daily. aspirin, enteric coated (ASPIRIN, ENTERIC COATED) 81 mg EC tablet Take 81 mg by mouth once daily. tiotropium bromide (SPIRIVA WITH HANDIHALER INHALATION) Inhale 2 Puffs as instructed daily at bedtime. Acetaminophen 500 mg cap Take 1,000 mg by mouth as needed. albuterol (PROVENTIL) 2.5 mg /3 mL (0.083 %) nebulizer solution Inhale 2.5 mg as instructed every 6 hours as needed. albuterol HFA (PROVENTIL HFA, VENTOLIN HFA) 90 mcg/actuation inhaler Inhale 2 Puffs as instructed every 6 hours as needed. budesonide-formoterol (SYMBICORT) 160-4.5 mcg/actuation inhaler Inhale 2 Puffs as instructed as needed. Cholecalciferol, Vitamin D3, 25 mcg (1,000 unit) cap Take 1 capsule by mouth once daily. diazePAM (VALIUM) 5 mg tablet Take 1 tablet by mouth as needed. diclofenac, EC, (VOLTAREN) 75 mg EC tablet Take 1 tablet by mouth once daily. levothyroxine (SYNTHROID) 75 mcg tablet Take 88 mcg by mouth once daily. methocarbamol (ROBAXIN) 750 mg tablet Take 1 tablet by mouth twice daily. montelukast (SINGULAIR) 10 mg tablet Take 1 tablet by mouth as directed. omeprazole (PRILOSEC) 40 mg capsule Take 1 capsule by mouth twice daily. simvastatin (ZOCOR) 40 mg tablet Take 1 tablet by mouth once daily. Phentermine HCl 37.5 mg tablet Take 1 tablet by mouth once daily for 30 days. acetaminophen 325 mg-caffeine 40 mg-butalbital 50 mg (FIORICET) per tablet Take 1 tablet by mouth every 6 hours as needed for headache. (Patient not taking: Reported on 05/27/2023) WALKER ROLLATOR SEAT WITH 6 WHEELS - RED Rollator walker, please send to [facility] No current facility-administered medications for this visit. ALLERGIES Allergen Reactions [place] Unknown Depakote [Divalproe* Unknown Dilantin [Phenytoin] Unknown Ditropan [Oxybutyni* Unknown Influenza Virus Vac* Unknown Latex, Natural Rubb* Unknown Meloxicam (Bulk) Unknown Pravastatin Unknown Propofol Unknown Tetracycline Hcl (B* Unknown Tramadol Unknown Tylenol #3 [Codeine] Unknown Venom-Honey Bee Unknown ACTIVE PROBLEM LIST Hypoglycemia - 12/24/2022 Tia (Transient Ischemic Attack) - 12/24/2022 Chronic Obstructive Pulmonary Disease (Hcc) - 08/29/2022 Hyperlipidemia - 08/29/2022 Gastroesophageal Reflux Disease Without Esophagitis - 08/29/2022 Ptsd (Post-Traumatic Stress Disorder) - 08/29/2022 Major Depressive Disorder - 08/29/2022 Anxiety - 08/29/2022 Hypothyroidism - 08/29/2022 Vitamin D Deficiency - 08/29/2022 Scoliosis - 08/29/2022 Right Hip Pain - 08/29/2022 Femoral Loosening of Prosthetic Right Hip, Subsequent Encounter - 05/08/2022 Thyroid Nodule - 04/10/2022 Comment: 04/10/22: Multiple thyroid nodules found on US 12/22/21 (results reviewed and scanned to chart). Lesion in lower pole of right gland 1.4 cm, TR 4; recommended f/u in 1 year. Lesion at the lower pole of the left lobe 2.7 cm, TR 3; recommended FNA; ordered Social History Tobacco Use Smoking status: Never Smokeless (more content not included)... [facility] 05-09-2023 Miscellaneous Notes Review called pharmacy and they have a refill. They will get it ready for pt. Patient has been identified by name and date of : Yes Last office visit in this department: 04/30/2023 RX INSTRUCTIONS: Patient aware RX will be sent to pharmacy. No need to notify patient. Patient phones requesting refills as follows: Requested Prescriptions Pending Prescriptions Disp Refills dicyclomine (BENTYL) 20 mg tablet 120 tablet 2 Sig: Take 1 tablet by mouth before meals and at bedtime. Please review and advise. Jackie Duenas documented in this encounter [facility] 04-30-2023 Note HNO ID: [id number] Author: Doreen Oliver APRN.TELECOMMUNICATIONS CLERK Service: ? Author Type: Nurse Practitioner Type: Progress Notes Filed: 04/30/2023 4:10 PM Note Text: SUBJECTIVE Lea Gomez is a 67 year old female here today for a check up on her medical problems. Chief Complaint Patient presents with: Abnormal Weight Gain HPI Lea Gomez is a 67 year old female established patient. She presents today for concerns of unplanned recent weight gain. 08/29/2022 was 160 lbs, now 195 lbs. 35 pound weight gain in about 8 months. She did have orthopaedic surgery in that time frame. Recovering anorexic. Normal bowel movements. Appetite is normal but does not want to eat. Some increased depression. In August 2022 she started on Abilify. Seeing Dr. Ashraf for mental health. Her medications were reviewed today and her list is now up to date. Medications Current Outpatient Medications Medication Sig benzonatate (TESSALON PERLE) 100 mg capsule Take 2 capsules by mouth every morning. EPINEPHrine (EPIPEN) 0.3 mg/0.3 mL auto-injector Inject 0.3 mL intramuscularly as needed. HYDROcodone-Acetaminophen (NORCO) 10-325 mg per tablet Take 1 tablet by mouth four times daily. dicyclomine (BENTYL) 20 mg tablet Take 1 tablet by mouth before meals and at bedtime. promethazine (PHENERGAN) 25 mg tablet Take 1 tablet by mouth every 6 hours as needed for nausea/vomiting. acetaminophen 325 mg-caffeine 40 mg-butalbital 50 mg (FIORICET) per tablet Take 1 tablet by mouth every 6 hours as needed for headache. gabapentin (NEURONTIN) 300 mg capsule Take 1 capsule by mouth three times daily. WALKER ROLLATOR SEAT WITH 6 WHEELS - RED Rollator walker, please send to [facility] aspirin, enteric coated (ASPIRIN, ENTERIC COATED) 81 mg EC tablet Take 81 mg by mouth once daily. tiotropium bromide (SPIRIVA WITH HANDIHALER INHALATION) Inhale 2 Puffs as instructed daily at bedtime. Acetaminophen 500 mg cap Take 1,000 mg by mouth as needed. albuterol (PROVENTIL) 2.5 mg /3 mL (0.083 %) nebulizer solution Inhale 2.5 mg as instructed every 6 hours as needed. albuterol HFA (PROVENTIL HFA, VENTOLIN HFA) 90 mcg/actuation inhaler Inhale 2 Puffs as instructed every 6 hours as needed. ARIPiprazole (ABILIFY) 5 mg tablet Take 20 mg by mouth once daily. budesonide-formoterol (SYMBICORT) 160-4.5 mcg/actuation inhaler Inhale 2 Puffs as instructed as needed. Cholecalciferol, Vitamin D3, 25 mcg (1,000 unit) cap Take 1 capsule by mouth once daily. diazePAM (VALIUM) 5 mg tablet Take 1 tablet by mouth as needed. diclofenac, EC, (VOLTAREN) 75 mg EC tablet Take 1 tablet by mouth once daily. levothyroxine (SYNTHROID) 75 mcg tablet Take 88 mcg by mouth once daily. methocarbamol (ROBAXIN) 750 mg tablet Take 1 tablet by mouth twice daily. montelukast (SINGULAIR) 10 mg tablet Take 1 tablet by mouth as directed. omeprazole (PRILOSEC) 40 mg capsule Take 1 capsule by mouth twice daily. sertraline (ZOLOFT) 100 mg tablet Take 100 mg by mouth once daily. simvastatin (ZOCOR) 40 mg tablet Take 1 tablet by mouth once daily. No current facility-administered medications for this visit. ALLERGIES Allergen Reactions [place] Unknown Depakote [Divalproe* Unknown Dilantin [Phenytoin] Unknown Ditropan [Oxybutyni* Unknown Influenza Virus Vac* Unknown Latex, Natural Rubb* Unknown Meloxicam (Bulk) Unknown Pravastatin Unknown Propofol Unknown Tetracycline Hcl (B* Unknown Tramadol Unknown Tylenol #3 [Codeine] Unknown Venom-Honey Bee Unknown ACTIVE PROBLEM LIST Hypoglycemia - 12/24/2022 Tia (Transient Ischemic Attack) - 12/24/2022 Chronic Obstructive Pulmonary Disease (Hcc) - 08/29/2022 Hyperlipidemia - 08/29/2022 Gastroesophageal Reflux Disease Without Esophagitis - 08/29/2022 Ptsd (Post-Traumatic Stress Disorder) - 08/29/2022 Major Depressive Disorder - 08/29/2022 Anxiety - 08/29/2022 Hypothyroidism - 08/29/2022 Vitamin D Deficiency - 08/29/2022 Scoliosis - 08/29/2022 Right Hip Pain - 08/29/2022 Femoral Loosening of Prosthetic Right Hip, Subsequent Encounter - 05/08/2022 Thyroid Nodule - 04/10/2022 Comment: 04/10/22: Multiple thyroid nodules found on US 12/22/21 (results reviewed and scanned to chart). Lesion in lower pole of right gland 1.4 cm, TR 4; recommended f/u in 1 year. Lesion at the lower pole of the left lobe 2.7 cm, TR 3; recommended FNA; ordered Social History Tobacco Use Smoking status: Never Smokeless tobacco: Never Vaping Use Vaping Use: Never used Substance Use Topics Alcohol use: Never Drug use: Never Review of Systems Constitutional: Positive for unexpected weight change. Negative for activity change, appetite change, chills, diaphoresis, fatigue and fever. Respiratory: Negative. Cardiovascular: Negative. OBJECTIVE BP 100/69 Pulse 61 Ht 5' 5 (1.65m) Wt 195 lb (88.5kg) SpO2 96% BMI 32.45 kg/(m2) (more content not included)... [facility] 04-30-2023 History of Presen t illness Narrative SUBJECTIVE Lea Gomez is a 67 year old female here today for a check up on her medical problems. Chief Complaint Patient presents with: Abnormal Weight Gain HPI Lea Gomez is a 67 year old female established patient. She presents today for concerns of unplanned recent weight gain. 08/29/2022 was 160 lbs, now 195 lbs. 35 pound weight gain in about 8 months. She did have orthopaedic surgery in that time frame. Recovering anorexic. Normal bowel movements. Appetite is normal but does not want to eat. Some increased depression. In August 2022 she started on Abilify. Seeing Dr. Ashraf for mental health. Her medications were reviewed today and her list is now up to date. Medications Current Outpatient Medications Medication Sig benzonatate (TESSALON PERLE) 100 mg capsule Take 2 capsules by mouth every morning. EPINEPHrine (EPIPEN) 0.3 mg/0.3 mL auto-injector Inject 0.3 mL intramuscularly as needed. HYDROcodone-Acetaminophen (NORCO) 10-325 mg per tablet Take 1 tablet by mouth four times daily. dicyclomine (BENTYL) 20 mg tablet Take 1 tablet by mouth before meals and at bedtime. promethazine (PHENERGAN) 25 mg tablet Take 1 tablet by mouth every 6 hours as needed for nausea/vomiting. acetaminophen 325 mg-caffeine 40 mg-butalbital 50 mg (FIORICET) per tablet Take 1 tablet by mouth every 6 hours as needed for headache. gabapentin (NEURONTIN) 300 mg capsule Take 1 capsule by mouth three times daily. WALKER ROLLATOR SEAT WITH 6 WHEELS - RED Rollator walker, please send to [facility] aspirin, enteric coated (ASPIRIN, ENTERIC COATED) 81 mg EC tablet Take 81 mg by mouth once daily. tiotropium bromide (SPIRIVA WITH HANDIHALER INHALATION) Inhale 2 Puffs as instructed daily at bedtime. Acetaminophen 500 mg cap Take 1,000 mg by mouth as needed. albuterol (PROVENTIL) 2.5 mg /3 mL (0.083 %) nebulizer solution Inhale 2.5 mg as instructed every 6 hours as needed. albuterol HFA (PROVENTIL HFA, VENTOLIN HFA) 90 mcg/actuation inhaler Inhale 2 Puffs as instructed every 6 hours as needed. ARIPiprazole (ABILIFY) 5 mg tablet Take 20 mg by mouth once daily. budesonide-formoterol (SYMBICORT) 160-4.5 mcg/actuation inhaler Inhale 2 Puffs as instructed as needed. Cholecalciferol, Vitamin D3, 25 mcg (1,000 unit) cap Take 1 capsule by mouth once daily. diazePAM (VALIUM) 5 mg tablet Take 1 tablet by mouth as needed. diclofenac, EC, (VOLTAREN) 75 mg EC tablet Take 1 tablet by mouth once daily. levothyroxine (SYNTHROID) 75 mcg tablet Take 88 mcg by mouth once daily. methocarbamol (ROBAXIN) 750 mg tablet Take 1 tablet by mouth twice daily. montelukast (SINGULAIR) 10 mg tablet Take 1 tablet by mouth as directed. omeprazole (PRILOSEC) 40 mg capsule Take 1 capsule by mouth twice daily. sertraline (ZOLOFT) 100 mg tablet Take 100 mg by mouth once daily. simvastatin (ZOCOR) 40 mg tablet Take 1 tablet by mouth once daily. No current facility-administered medications for this visit. ALLERGIES Allergen Reactions [place] Unknown Depakote [Divalproe* Unknown Dilantin [Phenytoin] Unknown Ditropan [Oxybutyni* Unknown Influenza Virus Vac* Unknown Latex, Natural Rubb* Unknown Meloxicam (Bulk) Unknown Pravastatin Unknown Propofol Unknown Tetracycline Hcl (B* Unknown Tramadol Unknown Tylenol #3 [Codeine] Unknown Venom-Honey Bee Unknown ACTIVE PROBLEM LIST Hypoglycemia - 12/24/2022 Tia (Transient Ischemic Attack) - 12/24/2022 Chronic Obstructive Pulmonary Disease (Hcc) - 08/29/2022 Hyperlipidemia - 08/29/2022 Gastroesophageal Reflux Disease Without Esophagitis - 08/29/2022 Ptsd (Post-Traumatic Stress Disorder) - 08/29/2022 Major Depressive Disorder - 08/29/2022 Anxiety - 08/29/2022 Hypothyroidism - 08/29/2022 Vitamin D Deficiency - 08/29/2022 Scoliosis - 08/29/2022 Right Hip Pain - 08/29/2022 Femoral Loosening of Prosthetic Right Hip, Subsequent Encounter - 05/08/2022 Thyroid Nodule - 04/10/2022 Comment: 04/10/22: Multiple thyroid nodules found on US 12/22/21 (results reviewed and scanned to chart). Lesion in lower pole of right gland 1.4 cm, TR 4; recommended f/u in 1 year. Lesion at the lower pole of the left lobe 2.7 cm, TR 3; recommended FNA; ordered Social History Tobacco Use Smoking status: Never Smokeless tobacco: Never Vaping Use Vaping Use: Never used Substance Use Topics Alcohol use: Never Drug use: Never Review of Systems Constitutional: Positive for unexpected weight change. Negative for activity change, appetite change, chills, diaphoresis, fatigue and fever. Respiratory: Negative. Cardiovascular: Negative. OBJECTIVE BP 100/69 Pulse 61 Ht 5' 5 (1.65m) Wt 195 lb (88.5kg) SpO2 96% BMI 32.45 kg/(m^2). Physical Exam Vitals and nursing note reviewed. Constitutional: General: She is awake. She is not in acute distress. Appearance: Normal appearance. She is well-developed and well-groomed. She is not ill-appearing, toxic-appearing or diaphoretic. HENT: Head: Normocephalic. Right Ear: External ear normal. Left Ear: External ear normal. Nose: Nose normal. Eyes: General: Vision grossly intact. Conjunctiva/sclera: Conjunctivae normal. Pupils: Pupils are equal, round, and reactive to light. Neck: Vascular: No JVD. Trachea: Trachea normal. Pulmonary: Effort: Pulmonary effort is normal. No accessory muscle usage, prolonged expiration or respiratory distress. Musculoskeletal: Cervical back: Neck supple. Skin: General: Skin is warm and dry. Capillary Refill: Capillary refill takes less than 2 seconds. Neurological: General: No focal deficit present. Mental Status: She is alert and oriented to person, place, and time. Mental status is at baseline. Psychiatric: Attention and Perception: Attention and perception normal. Mood and Affect: Mood and affect normal. Speech: Speech normal. Behavior: Behavior normal. Behavior is cooperative. Thought Content: Thought content normal. Cognition and Memory: Cognition and memory normal. Judgment: Judgment normal. ASSESSMENT/PLAN: 1. Recent weight gain - ICD9: 783.1, ICD10: R63.5 (primary diagnosis) Suspect the weight gain is secondary to her Abilify, we will reach out to Dr. Ashraf and see if we can decrease Abilify and try starting something like Wellbutrin. Check labs for any other issues contributing. - HGB A1C - TSH BLD - T3 FREE BLD - T4 FREE/FREE THYROX 2. Class 1 obesity due to excess calories with serious comorbidity and body mass index (BMI) of 32.0 to 32.9 in adult - ICD9: 278.00, V85.32, ICD10: E66.09, Z68.32 - HGB A1C - TSH BLD 3. Hypothyroidism, unspecified type - ICD9: 244.9, ICD10: E03.9 - TSH BLD - T3 FREE BLD - T4 FREE/FREE THYROX 4. Iron deficiency - ICD9: 280.9, ICD10: E61.1 - CBC + DIFF - IRON + TIBC - FERRITIN BLD 5. Encounter for therapeutic drug monitoring - ICD9: V58.83, ICD10: Z51.81 - CBC + DIFF - COMP METABOLIC PANEL Portions of this note have been entered by ancillary staff. I have reviewed and when necessary edited, so that they are an adequate record of my encounter with this patient Please note that parts of this document were created using voice recognition software and therefore may contain grammatical errors. Patient verbalizes understanding of instructions from today's visit and in agreement with treatment plan. Questions answered. Agrees to call the office if questions, concerns of issues with acute symptoms not improving or if they worsen. See diagnoses and orders for additional plan(s). Allergies and medications were reviewed, list was updated, and refills given if needed. Past medical, surgical, social, and family history reviewed and updated as appropriate. Encouraged proper diet & exercise as well as compliance with taking medications. Age-appropriate health preventative measures were discussed. Return if symptoms worsen or fail to improve, for Keep next scheduled appointment.. Doreen Oliver APRN-WHITNEY documented in this encounter [facility] 04-10-2023 Note HNO ID: [id number] Author: Doreen Oliver APRN.WHITNEY Service: ? Author Type: Nurse Practitioner Type: Progress Notes Filed: 04/16/2023 2:14 PM Note Text: SUBJECTIVE Lea Gomez is a 67 year old female here today for acute concern. Chief Complaint Patient presents with: Cat Bite HPI Lea Gomez is a 67 year old female established patient who presents today for concerns of a cat bite to her right hand. On Saturday she had her cats sitting on her chest, they started to fight, she moved them off and one bit her. IT has x3 open area with redness, the hand has swelling and pain. Her medications were reviewed today and her list is now up to date. Medications Current Outpatient Medications Medication Sig benzonatate (TESSALON PERLE) 100 mg capsule Take 2 capsules by mouth every morning. predniSONE (DELTASONE) 10 mg tablet Take 2 tabs po BID for 2 days then 1 tab po BID for 2 days then 1/2 tab po BID for 2 days then 1/2 tab daily for 2 days then stop EPINEPHrine (EPIPEN) 0.3 mg/0.3 mL auto-injector Inject 0.3 mL intramuscularly as needed. HYDROcodone-Acetaminophen (NORCO) 10-325 mg per tablet Take 1 tablet by mouth four times daily. dicyclomine (BENTYL) 20 mg tablet Take 1 tablet by mouth before meals and at bedtime. promethazine (PHENERGAN) 25 mg tablet Take 1 tablet by mouth every 6 hours as needed for nausea/vomiting. acetaminophen 325 mg-caffeine 40 mg-butalbital 50 mg (FIORICET) per tablet Take 1 tablet by mouth every 6 hours as needed for headache. gabapentin (NEURONTIN) 300 mg capsule Take 1 capsule by mouth three times daily. WALKER ROLLATOR SEAT WITH 6 WHEELS - RED Rollator walker, please send to [facility] aspirin, enteric coated (ASPIRIN, ENTERIC COATED) 81 mg EC tablet Take 81 mg by mouth once daily. tiotropium bromide (SPIRIVA WITH HANDIHALER INHALATION) Inhale 2 Puffs as instructed daily at bedtime. Acetaminophen 500 mg cap Take 1,000 mg by mouth as needed. albuterol (PROVENTIL) 2.5 mg /3 mL (0.083 %) nebulizer solution Inhale 2.5 mg as instructed every 6 hours as needed. albuterol HFA (PROVENTIL HFA, VENTOLIN HFA) 90 mcg/actuation inhaler Inhale 2 Puffs as instructed every 6 hours as needed. ARIPiprazole (ABILIFY) 5 mg tablet Take 20 mg by mouth once daily. budesonide-formoterol (SYMBICORT) 160-4.5 mcg/actuation inhaler Inhale 2 Puffs as instructed as needed. Cholecalciferol, Vitamin D3, 25 mcg (1,000 unit) cap Take 1 capsule by mouth once daily. diazePAM (VALIUM) 5 mg tablet Take 1 tablet by mouth as needed. diclofenac, EC, (VOLTAREN) 75 mg EC tablet Take 1 tablet by mouth once daily. levothyroxine (SYNTHROID) 75 mcg tablet Take 88 mcg by mouth once daily. methocarbamol (ROBAXIN) 750 mg tablet Take 1 tablet by mouth twice daily. montelukast (SINGULAIR) 10 mg tablet Take 1 tablet by mouth as directed. omeprazole (PRILOSEC) 40 mg capsule Take 1 capsule by mouth twice daily. sertraline (ZOLOFT) 100 mg tablet Take 100 mg by mouth once daily. simvastatin (ZOCOR) 40 mg tablet Take 1 tablet by mouth once daily. amoxicillin-clavulanic acid (AUGMENTIN) 875-125 mg per tablet Take 1 tablet by mouth twice daily for 7 days. HYDROcodone-acetaminophen (NORCO) 5-325 mg per tablet Take 1 tablet by mouth twice daily. (Patient not taking: Reported on 02/12/2023) traZODone (DESYREL) 150 mg tablet Take 2 tablets by mouth once daily. (Patient not taking: Reported on 02/12/2023) No current facility-administered medications for this visit. ALLERGIES Allergen Reactions [place] Unknown Depakote [Divalproe* Unknown Dilantin [Phenytoin] Unknown Ditropan [Oxybutyni* Unknown Influenza Virus Vac* Unknown Latex, Natural Rubb* Unknown Meloxicam (Bulk) Unknown Pravastatin Unknown Propofol Unknown Tetracycline Hcl (B* Unknown Tramadol Unknown Tylenol #3 [Codeine] Unknown Venom-Honey Bee Unknown ACTIVE PROBLEM LIST Hypoglycemia - 12/24/2022 Tia (Transient Ischemic Attack) - 12/24/2022 Chronic Obstructive Pulmonary Disease (Hcc) - 08/29/2022 Hyperlipidemia - 08/29/2022 Gastroesophageal Reflux Disease Without Esophagitis - 08/29/2022 Ptsd (Post-Traumatic Stress Disorder) - 08/29/2022 Major Depressive Disorder - 08/29/2022 Anxiety - 08/29/2022 Hypothyroidism - 08/29/2022 Vitamin D Deficiency - 08/29/2022 Scoliosis - 08/29/2022 Right Hip Pain - 08/29/2022 Femoral Loosening of Prosthetic Right Hip, Subsequent Encounter - 05/08/2022 Thyroid Nodule - 04/10/2022 Comment: 04/10/22: Multiple thyroid nodules found on US 12/22/21 (results reviewed and scanned to chart). Lesion in lower pole of right gland 1.4 cm, TR 4; recommended f/u in 1 year. Lesion at the lower pole of the left lobe 2.7 cm, TR 3; recommended FNA; ordered Social History Tobacco Use Smoking status: Never Smokeless tobacco: Never Vaping Use Vaping Use: Never used Substance Use Topics Alcohol us (more content not included)... [facility] 04-10-2023 History of Presen t illness Narrative Images from the original note were not included. SUBJECTIVE Lea Gomez is a 67 year old female here today for acute concern. Chief Complaint Patient presents with: Cat Bite HPI Lea Gomez is a 67 year old female established patient who presents today for concerns of a cat bite to her right hand. On Saturday she had her cats sitting on her chest, they started to fight, she moved them off and one bit her. IT has x3 open area with redness, the hand has swelling and pain. Her medications were reviewed today and her list is now up to date. Medications Current Outpatient Medications Medication Sig benzonatate (TESSALON PERLE) 100 mg capsule Take 2 capsules by mouth every morning. predniSONE (DELTASONE) 10 mg tablet Take 2 tabs po BID for 2 days then 1 tab po BID for 2 days then 1/2 tab po BID for 2 days then 1/2 tab daily for 2 days then stop EPINEPHrine (EPIPEN) 0.3 mg/0.3 mL auto-injector Inject 0.3 mL intramuscularly as needed. HYDROcodone-Acetaminophen (NORCO) 10-325 mg per tablet Take 1 tablet by mouth four times daily. dicyclomine (BENTYL) 20 mg tablet Take 1 tablet by mouth before meals and at bedtime. promethazine (PHENERGAN) 25 mg tablet Take 1 tablet by mouth every 6 hours as needed for nausea/vomiting. acetaminophen 325 mg-caffeine 40 mg-butalbital 50 mg (FIORICET) per tablet Take 1 tablet by mouth every 6 hours as needed for headache. gabapentin (NEURONTIN) 300 mg capsule Take 1 capsule by mouth three times daily. WALKER ROLLATOR SEAT WITH 6 WHEELS - RED Rollator walker, please send to [facility] aspirin, enteric coated (ASPIRIN, ENTERIC COATED) 81 mg EC tablet Take 81 mg by mouth once daily. tiotropium bromide (SPIRIVA WITH HANDIHALER INHALATION) Inhale 2 Puffs as instructed daily at bedtime. Acetaminophen 500 mg cap Take 1,000 mg by mouth as needed. albuterol (PROVENTIL) 2.5 mg /3 mL (0.083 %) nebulizer solution Inhale 2.5 mg as instructed every 6 hours as needed. albuterol HFA (PROVENTIL HFA, VENTOLIN HFA) 90 mcg/actuation inhaler Inhale 2 Puffs as instructed every 6 hours as needed. ARIPiprazole (ABILIFY) 5 mg tablet Take 20 mg by mouth once daily. budesonide-formoterol (SYMBICORT) 160-4.5 mcg/actuation inhaler Inhale 2 Puffs as instructed as needed. Cholecalciferol, Vitamin D3, 25 mcg (1,000 unit) cap Take 1 capsule by mouth once daily. diazePAM (VALIUM) 5 mg tablet Take 1 tablet by mouth as needed. diclofenac, EC, (VOLTAREN) 75 mg EC tablet Take 1 tablet by mouth once daily. levothyroxine (SYNTHROID) 75 mcg tablet Take 88 mcg by mouth once daily. methocarbamol (ROBAXIN) 750 mg tablet Take 1 tablet by mouth twice daily. montelukast (SINGULAIR) 10 mg tablet Take 1 tablet by mouth as directed. omeprazole (PRILOSEC) 40 mg capsule Take 1 capsule by mouth twice daily. sertraline (ZOLOFT) 100 mg tablet Take 100 mg by mouth once daily. simvastatin (ZOCOR) 40 mg tablet Take 1 tablet by mouth once daily. amoxicillin-clavulanic acid (AUGMENTIN) 875-125 mg per tablet Take 1 tablet by mouth twice daily for 7 days. HYDROcodone-acetaminophen (NORCO) 5-325 mg per tablet Take 1 tablet by mouth twice daily. (Patient not taking: Reported on 02/12/2023) traZODone (DESYREL) 150 mg tablet Take 2 tablets by mouth once daily. (Patient not taking: Reported on 02/12/2023) No current facility-administered medications for this visit. ALLERGIES Allergen Reactions [place] Unknown Depakote [Divalproe* Unknown Dilantin [Phenytoin] Unknown Ditropan [Oxybutyni* Unknown Influenza Virus Vac* Unknown Latex, Natural Rubb* Unknown Meloxicam (Bulk) Unknown Pravastatin Unknown Propofol Unknown Tetracycline Hcl (B* Unknown Tramadol Unknown Tylenol #3 [Codeine] Unknown Venom-Honey Bee Unknown ACTIVE PROBLEM LIST Hypoglycemia - 12/24/2022 Tia (Transient Ischemic Attack) - 12/24/2022 Chronic Obstructive Pulmonary Disease (Hcc) - 08/29/2022 Hyperlipidemia - 08/29/2022 Gastroesophageal Reflux Disease Without Esophagitis - 08/29/2022 Ptsd (Post-Traumatic Stress Disorder) - 08/29/2022 Major Depressive Disorder - 08/29/2022 Anxiety - 08/29/2022 Hypothyroidism - 08/29/2022 Vitamin D Deficiency - 08/29/2022 Scoliosis - 08/29/2022 Right Hip Pain - 08/29/2022 Femoral Loosening of Prosthetic Right Hip, Subsequent Encounter - 05/08/2022 Thyroid Nodule - 04/10/2022 Comment: 04/10/22: Multiple thyroid nodules found on US 12/22/21 (results reviewed and scanned to chart). Lesion in lower pole of right gland 1.4 cm, TR 4; recommended f/u in 1 year. Lesion at the lower pole of the left lobe 2.7 cm, TR 3; recommended FNA; ordered Social History Tobacco Use Smoking status: Never Smokeless tobacco: Never Vaping Use Vaping Use: Never used Substance Use Topics Alcohol use: Never Drug use: Never Review of Systems Skin: Positive for wound. Negative for color change, pallor and rash. OBJECTIVE BP 108/62 Pulse 60 Temp (Src) 97.7 (Temporal) Resp 20 Wt 191 lb (86.6kg) Physical Exam Vitals and nursing note reviewed. Constitutional: General: She is awake. She is not in acute distress. Appearance: Normal appearance. She is well-developed and well-groomed. She is not ill-appearing, toxic-appearing or diaphoretic. HENT: Head: Normocephalic. Right Ear: External ear normal. Left Ear: External ear normal. Nose: Nose normal. Eyes: General: Vision grossly intact. Conjunctiva/sclera: Conjunctivae normal. Pupils: Pupils are equal, round, and reactive to light. Neck: Vascular: No JVD. Trachea: Trachea normal. Cardiovascular: Pulses: Normal pulses. Pulmonary: Effort: Pulmonary effort is normal. No accessory muscle usage, prolonged expiration or respiratory distress. Musculoskeletal: Cervical back: Neck supple. Skin: General: Skin is warm and dry. Capillary Refill: Capillary refill takes less than 2 seconds. Neurological: General: No focal deficit present. Mental Status: She is alert and oriented to person, place, and time. Mental status is at baseline. Psychiatric: Attention and Perception: Attention and perception normal. Mood and Affect: Mood and affect normal. Speech: Speech normal. Behavior: Behavior normal. Behavior is cooperative. Thought Content: Thought content normal. Cognition and Memory: Cognition and memory normal. Judgment: Judgment normal. ASSESSMENT/PLAN: 1. Cat bite, initial encounter - ICD9: 879.8, E906.3, ICD10: W55.01XA - AMOXICILLIN 875 MG-POTASSIUM CLAVULANATE 125 MG TABLET Portions of this note have been entered by ancillary staff. I have reviewed and when necessary edited, so that they are an adequate record of my encounter with this patient Please note that parts of this document were created using voice recognition software and therefore may contain grammatical errors. Patient verbalizes understanding of instructions from today's visit and in agreement with treatment plan. Questions answered. Agrees to call the office if questions, concerns of issues with acute symptoms not improving or if they worsen. Return if symptoms worsen or fail to improve, for Keep next scheduled appointment.. Doreen Oliver APRN-WHITNEY documented in this encounter [facility] 03-29-2023 Miscellaneous Notes Patient has been identified by name and date of : Yes Requested Prescriptions Pending Prescriptions Disp Refills benzonatate (TESSALON PERLE) 100 mg capsule 60 capsule 1 Sig: Take 2 capsules by mouth every morning. RX INSTRUCTIONS: Patient aware RX will be sent to pharmacy. No need to notify patient. Ele Kay Pss documented in this encounter [facility] 03-13-2023 Note HNO ID: [id number] Author: Doreen Oliver APRN.TELECOMMUNICATIONS CLERK Service: ? Author Type: Nurse Practitioner Type: Progress Notes Filed: 03/13/2023 4:11 PM Note Text: SUBJECTIVE Lea Gomez is a 67 year old female here today for a check up on her medical problems. Chief Complaint Patient presents with: ER F/U: [facility] 03/06/23 for a fall Hit chin and laceration glued shut Having left knee pain HPI Lea Gomez is a 67 year old female established patient who presents today for an ER follow up. She was seen in the ER at [facility] on 03/06 following a fall. She tripped in a parking lot and fell forward. She had xrays done and there were no fractures, hardware from recent hip replacement was okay. She still has some bruising, swelling and pain to the left knee and leg. Saw her ortho provider Dr. Smart on Saturday. She has been icing, propping her left leg. Still going to PT, PT is helping with icing. She is wondering what we can do to help her pain. Her medications were reviewed today and her list is now up to date. Medications Current Outpatient Medications Medication Sig benzonatate (TESSALON PERLE) 100 mg capsule Take 2 capsules by mouth every morning. EPINEPHrine (EPIPEN) 0.3 mg/0.3 mL auto-injector Inject 0.3 mL intramuscularly as needed. HYDROcodone-Acetaminophen (NORCO) 10-325 mg per tablet Take 1 tablet by mouth four times daily. dicyclomine (BENTYL) 20 mg tablet Take 1 tablet by mouth before meals and at bedtime. promethazine (PHENERGAN) 25 mg tablet Take 1 tablet by mouth every 6 hours as needed for nausea/vomiting. acetaminophen 325 mg-caffeine 40 mg-butalbital 50 mg (FIORICET) per tablet Take 1 tablet by mouth every 6 hours as needed for headache. gabapentin (NEURONTIN) 300 mg capsule Take 1 capsule by mouth three times daily. aspirin, enteric coated (ASPIRIN, ENTERIC COATED) 81 mg EC tablet Take 81 mg by mouth once daily. tiotropium bromide (SPIRIVA WITH HANDIHALER INHALATION) Inhale 2 Puffs as instructed daily at bedtime. Acetaminophen 500 mg cap Take 1,000 mg by mouth as needed. albuterol (PROVENTIL) 2.5 mg /3 mL (0.083 %) nebulizer solution Inhale 2.5 mg as instructed every 6 hours as needed. albuterol HFA (PROVENTIL HFA, VENTOLIN HFA) 90 mcg/actuation inhaler Inhale 2 Puffs as instructed every 6 hours as needed. ARIPiprazole (ABILIFY) 5 mg tablet Take 20 mg by mouth once daily. budesonide-formoterol (SYMBICORT) 160-4.5 mcg/actuation inhaler Inhale 2 Puffs as instructed as needed. Cholecalciferol, Vitamin D3, 25 mcg (1,000 unit) cap Take 1 capsule by mouth once daily. diazePAM (VALIUM) 5 mg tablet Take 1 tablet by mouth as needed. diclofenac, EC, (VOLTAREN) 75 mg EC tablet Take 1 tablet by mouth once daily. levothyroxine (SYNTHROID) 75 mcg tablet Take 88 mcg by mouth once daily. methocarbamol (ROBAXIN) 750 mg tablet Take 1 tablet by mouth twice daily. montelukast (SINGULAIR) 10 mg tablet Take 1 tablet by mouth as directed. omeprazole (PRILOSEC) 40 mg capsule Take 1 capsule by mouth twice daily. sertraline (ZOLOFT) 100 mg tablet Take 100 mg by mouth once daily. simvastatin (ZOCOR) 40 mg tablet Take 1 tablet by mouth once daily. predniSONE (DELTASONE) 10 mg tablet Take 2 tabs po BID for 2 days then 1 tab po BID for 2 days then 1/2 tab po BID for 2 days then 1/2 tab daily for 2 days then stop WALKER ROLLATOR SEAT WITH 6 WHEELS - RED Rollator walker, please send to [facility] HYDROcodone-acetaminophen (NORCO) 5-325 mg per tablet Take 1 tablet by mouth twice daily. (Patient not taking: Reported on 02/12/2023) traZODone (DESYREL) 150 mg tablet Take 2 tablets by mouth once daily. (Patient not taking: Reported on 02/12/2023) No current facility-administered medications for this visit. ALLERGIES Allergen Reactions [place] Unknown Depakote [Divalproe* Unknown Dilantin [Phenytoin] Unknown Ditropan [Oxybutyni* Unknown Influenza Virus Vac* Unknown Latex, Natural Rubb* Unknown Meloxicam (Bulk) Unknown Pravastatin Unknown Propofol Unknown Tetracycline Hcl (B* Unknown Tramadol Unknown Tylenol #3 [Codeine] Unknown Venom-Honey Bee Unknown ACTIVE PROBLEM LIST Hypoglycemia - 12/24/2022 Tia (Transient Ischemic Attack) - 12/24/2022 Chronic Obstructive Pulmonary Disease (Hcc) - 08/29/2022 Hyperlipidemia - 08/29/2022 Gastroesophageal Reflux Disease Without Esophagitis - 08/29/2022 Ptsd (Post-Traumatic Stress Disorder) - 08/29/2022 Major Depressive Disorder - 08/29/2022 Anxiety - 08/29/2022 Hypothyroidism - 08/29/2022 Vitamin D Deficiency - 08/29/2022 Scoliosis - 08/29/2022 Right Hip Pain - 08/29/2022 Femoral Loosening of Prosthetic Right Hip, Subsequent Encounter - 05/08/2022 Thyroid Nodule - 04/10/2022 Comment: 04/10/22: Multiple thyroid nodules found on US 12/22/21 (results reviewed and scanned to chart). Lesion in lower pole of right gland 1.4 cm, TR 4; recommended f/u (more content not included)... [facility] 03-13-2023 History of Presen t illness Narrative SUBJECTIVE Lea Gomez is a 67 year old female here today for a check up on her medical problems. Chief Complaint Patient presents with: ER F/U: [facility] 03/06/23 for a fall Hit chin and laceration glued shut Having left knee pain HPI Lea Gomez is a 67 year old female established patient who presents today for an ER follow up. She was seen in the ER at [facility] on 03/06 following a fall. She tripped in a parking lot and fell forward. She had xrays done and there were no fractures, hardware from recent hip replacement was okay. She still has some bruising, swelling and pain to the left knee and leg. Saw her ortho provider Dr. Smart on Saturday. She has been icing, propping her left leg. Still going to PT, PT is helping with icing. She is wondering what we can do to help her pain. Her medications were reviewed today and her list is now up to date. Medications Current Outpatient Medications Medication Sig benzonatate (TESSALON PERLE) 100 mg capsule Take 2 capsules by mouth every morning. EPINEPHrine (EPIPEN) 0.3 mg/0.3 mL auto-injector Inject 0.3 mL intramuscularly as needed. HYDROcodone-Acetaminophen (NORCO) 10-325 mg per tablet Take 1 tablet by mouth four times daily. dicyclomine (BENTYL) 20 mg tablet Take 1 tablet by mouth before meals and at bedtime. promethazine (PHENERGAN) 25 mg tablet Take 1 tablet by mouth every 6 hours as needed for nausea/vomiting. acetaminophen 325 mg-caffeine 40 mg-butalbital 50 mg (FIORICET) per tablet Take 1 tablet by mouth every 6 hours as needed for headache. gabapentin (NEURONTIN) 300 mg capsule Take 1 capsule by mouth three times daily. aspirin, enteric coated (ASPIRIN, ENTERIC COATED) 81 mg EC tablet Take 81 mg by mouth once daily. tiotropium bromide (SPIRIVA WITH HANDIHALER INHALATION) Inhale 2 Puffs as instructed daily at bedtime. Acetaminophen 500 mg cap Take 1,000 mg by mouth as needed. albuterol (PROVENTIL) 2.5 mg /3 mL (0.083 %) nebulizer solution Inhale 2.5 mg as instructed every 6 hours as needed. albuterol HFA (PROVENTIL HFA, VENTOLIN HFA) 90 mcg/actuation inhaler Inhale 2 Puffs as instructed every 6 hours as needed. ARIPiprazole (ABILIFY) 5 mg tablet Take 20 mg by mouth once daily. budesonide-formoterol (SYMBICORT) 160-4.5 mcg/actuation inhaler Inhale 2 Puffs as instructed as needed. Cholecalciferol, Vitamin D3, 25 mcg (1,000 unit) cap Take 1 capsule by mouth once daily. diazePAM (VALIUM) 5 mg tablet Take 1 tablet by mouth as needed. diclofenac, EC, (VOLTAREN) 75 mg EC tablet Take 1 tablet by mouth once daily. levothyroxine (SYNTHROID) 75 mcg tablet Take 88 mcg by mouth once daily. methocarbamol (ROBAXIN) 750 mg tablet Take 1 tablet by mouth twice daily. montelukast (SINGULAIR) 10 mg tablet Take 1 tablet by mouth as directed. omeprazole (PRILOSEC) 40 mg capsule Take 1 capsule by mouth twice daily. sertraline (ZOLOFT) 100 mg tablet Take 100 mg by mouth once daily. simvastatin (ZOCOR) 40 mg tablet Take 1 tablet by mouth once daily. predniSONE (DELTASONE) 10 mg tablet Take 2 tabs po BID for 2 days then 1 tab po BID for 2 days then 1/2 tab po BID for 2 days then 1/2 tab daily for 2 days then stop WALKER ROLLATOR SEAT WITH 6 WHEELS - RED Rollator walker, please send to [facility] HYDROcodone-acetaminophen (NORCO) 5-325 mg per tablet Take 1 tablet by mouth twice daily. (Patient not taking: Reported on 02/12/2023) traZODone (DESYREL) 150 mg tablet Take 2 tablets by mouth once daily. (Patient not taking: Reported on 02/12/2023) No current facility-administered medications for this visit. ALLERGIES Allergen Reactions [place] Unknown Depakote [Divalproe* Unknown Dilantin [Phenytoin] Unknown Ditropan [Oxybutyni* Unknown Influenza Virus Vac* Unknown Latex, Natural Rubb* Unknown Meloxicam (Bulk) Unknown Pravastatin Unknown Propofol Unknown Tetracycline Hcl (B* Unknown Tramadol Unknown Tylenol #3 [Codeine] Unknown Venom-Honey Bee Unknown ACTIVE PROBLEM LIST Hypoglycemia - 12/24/2022 Tia (Transient Ischemic Attack) - 12/24/2022 Chronic Obstructive Pulmonary Disease (Hcc) - 08/29/2022 Hyperlipidemia - 08/29/2022 Gastroesophageal Reflux Disease Without Esophagitis - 08/29/2022 Ptsd (Post-Traumatic Stress Disorder) - 08/29/2022 Major Depressive Disorder - 08/29/2022 Anxiety - 08/29/2022 Hypothyroidism - 08/29/2022 Vitamin D Deficiency - 08/29/2022 Scoliosis - 08/29/2022 Right Hip Pain - 08/29/2022 Femoral Loosening of Prosthetic Right Hip, Subsequent Encounter - 05/08/2022 Thyroid Nodule - 04/10/2022 Comment: 04/10/22: Multiple thyroid nodules found on US 12/22/21 (results reviewed and scanned to chart). Lesion in lower pole of right gland 1.4 cm, TR 4; recommended f/u in 1 year. Lesion at the lower pole of the left lobe 2.7 cm, TR 3; recommended FNA; ordered Social History Tobacco Use Smoking status: Never Smokeless tobacco: Never Vaping Use Vaping Use: Never used Substance Use Topics Alcohol use: Never Drug use: Never Review of Systems Musculoskeletal: Positive for arthralgias, gait problem and myalgias. Negative for joint swelling and neck stiffness. OBJECTIVE BP 110/72 Pulse 54 Wt 193 lb (87.5kg) SpO2 95% Physical Exam Vitals and nursing note reviewed. Constitutional: General: She is awake. She is not in acute distress. Appearance: Normal appearance. She is well-developed and well-groomed. She is not ill-appearing, toxic-appearing or diaphoretic. HENT: Head: Normocephalic. Right Ear: External ear normal. Left Ear: External ear normal. Nose: Nose normal. Eyes: General: Vision grossly intact. Conjunctiva/sclera: Conjunctivae normal. Pupils: Pupils are equal, round, and reactive to light. Neck: Vascular: No JVD. Trachea: Trachea normal. Pulmonary: Effort: Pulmonary effort is normal. No accessory muscle usage, prolonged expiration or respiratory distress. Breath sounds: Normal breath sounds. Musculoskeletal: Cervical back: Neck supple. Left knee: Swelling and ecchymosis present. Decreased range of motion. Tenderness present. Left lower leg: Swelling and tenderness (bruising) present. Skin: General: Skin is warm and dry. Capillary Refill: Capillary refill takes less than 2 seconds. Neurological: General: No focal deficit present. Mental Status: She is alert and oriented to person, place, and time. Mental status is at baseline. Psychiatric: Attention and Perception: Attention and perception normal. Mood and Affect: Mood and affect normal. Speech: Speech normal. Behavior: Behavior normal. Behavior is cooperative. Thought Content: Thought content normal. Cognition and Memory: Cognition and memory normal. Judgment: Judgment normal. ASSESSMENT/PLAN: 1. Acute pain of left knee - ICD9: 719.46, ICD10: M25.562 (primary diagnosis) Discussed rest, ice, elevation, compression. Can continue with PT. She has pain medication to use PRN at home. Can try a steroid taper to help give some further relief. Also discussed considering a diuretic to help reduce edema but she does not want to do that at this time. - PREDNISONE 10 MG TABLET 2. Fall, subsequent encounter - ICD9: V58.89, E888.9, ICD10: W19.XXXD Slowly improving. Portions of this note have been entered by ancillary staff. I have reviewed and when necessary edited, so that they are an adequate record of my encounter with this patient Please note that parts of this document were created using voice recognition software and therefore may contain grammatical errors. Patient verbalizes understanding of instructions from today's visit and in agreement with treatment plan. Questions answered. Agrees to call the office if questions, concerns of issues with acute symptoms not improving or if they worsen. Return if symptoms worsen or fail to improve, for Keep next scheduled appointment.. JASWINDER Gutiérrez documented in this encounter [facility] 03-06-2023 Miscellaneous Notes Patient notified. Printed, will sign, please let her know she can pick this up. Thanks! Lea Gomez is calling Doreen Oliver APRN.CNP today to request Handicap Placard Renewal. Please call patient and she will fruit or nut picker at desk. Patient has been identified by name and birthdate. Duration of symptoms: N/A Person calling: self Call patient at: at home [phone] (home) [phone] (work) [phone] (cell) Was an appointment scheduled: No Closing statement: Jackie Rodriguez Pss documented in this encounter [facility] 02-28-2023 Note HNO ID: [id number] Author: Kellen Duenas MD Service: ? Author Type: Physician Type: Progress Notes Filed: 02/28/2023 4:33 PM Note Text: HISTORY AND PHYSICAL - BREAST COMPLAINT Lea Gomez 1955 REFERRING PHYSICIAN: Doreen Oliver CHIEF COMPLAINT: Abnormal breast imaging HPI: The patient is a 67 year old female with a complaint of an abnormal mammogram. The patient had a biography on December 31, 2022 with diagnostic mammogram with ultrasound on February 27, 2023 which demonstrated : IMPRESSION: SUSPICIOUS FINDING - BIOPSY SHOULD BE CONSIDERED The 1 cm oval mass in the left breast is suspicious of malignancy. An ultrasound guided biopsy is recommended. The patient notes a history of a palpable breast mass in that location which has been present since 1991. She has up to this point had her care in [facility]. She states that that site has been visualized in the past has been stable for quite some time. 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 She notes no skin changes. She denies nipple discharge. She notes no axillary masses. She notes no family history of breast problems but is adopted so is uncertain of her family risk factors. She did have an excision of the left breast 3 times which she described was cancer or breast abnormality. She has had no problems with her breast for some time. Feels that this is a stable problem and she does not wish to have a breast biopsy at this time. The patient is being seen by me today at the request of Doreen Oliver APRN.CNP for my opinion and advice regarding abnormal breast imaging. 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 60 capsule 0 EPINEPHrine (EPIPEN) 0.3 mg/0.3 mL auto-injector Inject 0.3 mL intramuscularly as needed. 2 Each 1 dicyclomine (BENTYL) 20 mg tablet Take 1 tablet by mouth before meals and at bedtime. 120 tablet 2 promethazine (PHENERGAN) 25 mg tablet Take 1 tablet by mouth every 6 hours as needed for nausea/vomiting. 120 tablet 3 acetaminophen 325 mg-caffeine 40 mg-butalbital 50 mg (FIORICET) per tablet Take 1 tablet by mouth every 6 hours as needed for headache. 120 tablet 0 gabapentin (NEURONTIN) 300 mg capsule Take 1 capsule by mouth three times daily. 270 capsule 3 WALKER ROLLATOR SEAT WITH 6 WHEELS - RED Rollator walker, please send to [facility] 1 Each 1 aspirin, enteric coated (ASPIRIN, ENTERIC COATED) 81 mg EC tablet Take 81 mg by mouth once daily. tiotropium bromide (SPIRIVA WITH HANDIHALER INHALATION) Inhale 2 Puffs as instructed daily at bedtime. Acetaminophen 500 mg cap Take 1,000 mg by mouth as needed. albuterol (PROVENTIL) 2.5 mg /3 mL (0.083 %) nebulizer solution Inhale 2.5 mg as instructed every 6 hours as needed. albuterol HFA (PROVENTIL HFA, VENTOLIN HFA) 90 mcg/actuation inhaler Inhale 2 Puffs as instructed every 6 hours as needed. ARIPiprazole (ABILIFY) 5 mg tablet Take 20 mg by mouth once daily. budesonide-formoterol (SYMBICORT) 160-4.5 mcg/actuation inhaler Inhale 2 Puffs as instructed as needed. Cholecalciferol, Vitamin D3, 25 mcg (1,000 unit) cap Take 1 capsule by mouth once daily. diazePAM (VALIUM) 5 mg tablet Take 1 tablet by mouth as needed. diclofenac, EC, (VOLTAREN) 75 mg EC tablet Take 1 tablet by mouth once daily. levothyroxine (SYNTHROID) 75 mcg tablet Take 88 mcg by mouth once daily. methocarbamol (ROBAXIN) 750 mg tablet Take 1 tablet by mouth twice daily. montelukast (SINGULAIR) 10 mg tablet Take 1 tablet by mouth as directed. omeprazole (PRILOSEC) 40 mg capsule Take 1 capsule by mouth twice daily. sertraline (ZOLOFT) 100 mg tablet Take 100 mg by mouth once daily. simvastatin (ZOCOR) 40 mg tablet Take 1 tablet by mouth once daily. HYDROcodone-Acetaminophen (NORCO) 10-325 mg per tablet Take 1 tablet by mouth four times daily. HYDROcodone-acetaminophen (NORCO) 5-325 mg per tablet Take 1 tablet by mouth twice daily. (Patient not taking: Reported on 02/12/2023) traZODone (DESYREL) 150 mg tablet Take 2 tablets by mouth once daily. (Patient not taking: Reported on 02/12/2023) No current facility-administered medications for this visit. ALLERGIES: [place]; Depakote [Divalproex]; Dilantin [Phenytoin]; Ditropan [Oxybutynin]; Influenza Virus Va (more content not included)... [facility] 02-28-2023 History of Presen t illness Narrative HISTORY AND PHYSICAL - BREAST COMPLAINT Lea Jason 1955 REFERRING PHYSICIAN: Doreen Oliver CHIEF COMPLAINT: Abnormal breast imaging HPI: The patient is a 67 year old female with a complaint of an abnormal mammogram. The patient had a biography on December 31, 2022 with diagnostic mammogram with ultrasound on February 27, 2023 which demonstrated : IMPRESSION: SUSPICIOUS FINDING - BIOPSY SHOULD BE CONSIDERED The 1 cm oval mass in the left breast is suspicious of malignancy. An ultrasound guided biopsy is recommended. The patient notes a history of a palpable breast mass in that location which has been present since 1991. She has up to this point had her care in [facility]. She states that that site has been visualized in the past has been stable for quite some time. 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 She notes no skin changes. She denies nipple discharge. She notes no axillary masses. She notes no family history of breast problems but is adopted so is uncertain of her family risk factors. She did have an excision of the left breast 3 times which she described was cancer or breast abnormality. She has had no problems with her breast for some time. Feels that this is a stable problem and she does not wish to have a breast biopsy at this time. The patient is being seen by me today at the request of Doreen Oliver APRN.CNP for my opinion and advice regarding abnormal breast imaging. 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 60 capsule 0 EPINEPHrine (EPIPEN) 0.3 mg/0.3 mL auto-injector Inject 0.3 mL intramuscularly as needed. 2 Each 1 dicyclomine (BENTYL) 20 mg tablet Take 1 tablet by mouth before meals and at bedtime. 120 tablet 2 promethazine (PHENERGAN) 25 mg tablet Take 1 tablet by mouth every 6 hours as needed for nausea/vomiting. 120 tablet 3 acetaminophen 325 mg-caffeine 40 mg-butalbital 50 mg (FIORICET) per tablet Take 1 tablet by mouth every 6 hours as needed for headache. 120 tablet 0 gabapentin (NEURONTIN) 300 mg capsule Take 1 capsule by mouth three times daily. 270 capsule 3 WALKER ROLLATOR SEAT WITH 6 WHEELS - RED Rollator walker, please send to [employer] 1 Each 1 aspirin, enteric coated (ASPIRIN, ENTERIC COATED) 81 mg EC tablet Take 81 mg by mouth once daily. tiotropium bromide (SPIRIVA WITH HANDIHALER INHALATION) Inhale 2 Puffs as instructed daily at bedtime. Acetaminophen 500 mg cap Take 1,000 mg by mouth as needed. albuterol (PROVENTIL) 2.5 mg /3 mL (0.083 %) nebulizer solution Inhale 2.5 mg as instructed every 6 hours as needed. albuterol HFA (PROVENTIL HFA, VENTOLIN HFA) 90 mcg/actuation inhaler Inhale 2 Puffs as instructed every 6 hours as needed. ARIPiprazole (ABILIFY) 5 mg tablet Take 20 mg by mouth once daily. budesonide-formoterol (SYMBICORT) 160-4.5 mcg/actuation inhaler Inhale 2 Puffs as instructed as needed. Cholecalciferol, Vitamin D3, 25 mcg (1,000 unit) cap Take 1 capsule by mouth once daily. diazePAM (VALIUM) 5 mg tablet Take 1 tablet by mouth as needed. diclofenac, EC, (VOLTAREN) 75 mg EC tablet Take 1 tablet by mouth once daily. levothyroxine (SYNTHROID) 75 mcg tablet Take 88 mcg by mouth once daily. methocarbamol (ROBAXIN) 750 mg tablet Take 1 tablet by mouth twice daily. montelukast (SINGULAIR) 10 mg tablet Take 1 tablet by mouth as directed. omeprazole (PRILOSEC) 40 mg capsule Take 1 capsule by mouth twice daily. sertraline (ZOLOFT) 100 mg tablet Take 100 mg by mouth once daily. simvastatin (ZOCOR) 40 mg tablet Take 1 tablet by mouth once daily. HYDROcodone-Acetaminophen (NORCO) 10-325 mg per tablet Take 1 tablet by mouth four times daily. HYDROcodone-acetaminophen (NORCO) 5-325 mg per tablet Take 1 tablet by mouth twice daily. (Patient not taking: Reported on 02/12/2023) traZODone (DESYREL) 150 mg tablet Take 2 tablets by mouth once daily. (Patient not taking: Reported on 02/12/2023) No current facility-administered medications for this visit. ALLERGIES: [place]; Depakote [Divalproex]; Dilantin [Phenytoin]; Ditropan [Oxybutynin]; Influenza Virus Vaccines; Latex, Natural Rubber; Meloxicam (Bulk); Pravastatin; Propofol; Tetracycline Hcl (Bulk); Tramadol; Tylenol #3 [Codeine]; and Venom-Honey Bee PERSONAL HISTORY: Social History Tobacco Use Smoking status: Never Smokeless tobacco: Never Vaping Use Vaping Use: Never used Substance Use Topics Alcohol use: Never Drug use: Never FAMILY HISTORY: FAMILY HISTORY Adopted: Yes REVIEW OF SYMPTOMS: The review of systems data was entered by the nurse and reviewed by tx Nursing Notes: Hailey Du LPN 02/28/2023 10:00 AM Signed REVIEW OF SYSTEMS: General: The patient notes fatigue, denies weight loss, notes weight gain, denies feeling hot, and denies feelings of cold. Eyes: The patient denies glaucoma, denies eye injury/surgery, wears glasses or contacts. Ear/Nose/Throat: The patient notes allergies, denies hayfever, denies ear infections, and denies bloody noses. Cardiovascular: The patient denies chest pain, denies heart disease, denies high blood pressure,denies cardiac stent, notes prior heart attack, denies irregular heart beat, denies high cholesterol, denies poor circulation, denies heart failure, other cardiac issues, denies claudication, denies cold feet, denies peripheral arterial stent. Respiratory: The patient denies tuberculosis, denies pneumonia, denies frequent cough, denies pulmonary embolism, notes shortness of breath, and denies coughing up blood, notes asthma, notes COPD. Gastrointestinal: The patient denies difficulty swallowing, notes acid reflux, denies ulcers, denies vomiting, denies jaundice/hepatitis, denies gallbladder problems, denies black or tarry stools, denies hemorrhoids, denies bleeding from rectum, denies diverticulitis, denies constipation, notes diarrhea, notes loss of stool control, and denies hernias. Kidney/Bladder: The patient denies kidney stones, denies urine infections, and denies bloody urine. Skin: The patient denies a history of skin cancer, denies bleeding/changing moles, and denies a history of skin rash. Neurologic: The patient notes a history of epilepsy/convulsions, notes headaches, notes head/spinal injuries, and notes stroke/TIA. Psychiatric: The patient notes psychiatric medications, notes depression, and denies voices, denies substance abuse. Endocrine: The patient notes thyroid disorders, denies diabetes, and denies hormonal problems. Hematologic: The patient notes a history of bruising, denies bleeding, and denies anemia, denies blood clots. Infections: The patient denies a history of measles and mumps, denies rheumatic fever, and denies sexually transmitted diseases. Musculoskeletal: The patient notes back pain/injury, notes back problems, notes sciatica, notes knee/foot trouble, denies arthritis, or denies gout. When was patient's last Mammogram screening? 2022 Last Colonoscopy: none Hailey Du LPN PHYSICAL EXAMINATION: General: The patient is 67 year old female, well nourished, well hydrated in no acute distress. The patient is oriented to time, place, and person. VITALS: Blood pressure 90/50, pulse 87, temperature 36.6 C (97.8 F), height 170.2 cm (5' 7 ), weight 88.9 kg (196 lb), SpO2 96 %. Body mass index is 30.7 kg/m . HEENT: Normal cephalic, ataumatic, pupils are equally round, sclera are anicteric, mucous membranes are moist, oropharynx is clear. Neck has no masses, asymmetry or lymphadenopathy. Thyroid is unremarkable. Respiratory: Clear to auscultation and percussion. Normal respiratory excursion and pattern. Cardiac: Examination is regular rate and rhythm. Abdominal exam: Soft, nontender, with no palpable masses. No hepatosplenomegaly. No palpable hernias. Rectal exam: exam deferred Extremities: no clubbing, cyanosis or edema. No adenopathy. Breast: Visual inspection reveals no retractions, nipple inversion, or skin changes. Palpation of the right breast reveals no dominant or suspicious masses. Palpation of the left breast reveals no dominant or suspicious masses and the mass of concern at the 1 oclock position. The mass is round smooth mobile and not suspicious. Axillary exam demonstrates no suspicious masses in either the left or right axilla. There is no nipple discharge expressed from either the left or right breast. LABORATORY VALUES: As Noted RADIOLOGIC STUDIES: As Noted Intraoffice ultrasound was performed. This demonstrated the above-noted abnormality on ultrasound and was at the location of her palpable abnormality. Assessment IMPRESSION: Abnormal mammogram but per patient stable on clinical exam and imaging from [place] PLAN: We discussed the possibilities of the origin of her abnormal mammogram. We discussed the fact that only biopsy can definitely exclude malignancy. We discussed that options ranged from observation, to fine needle aspiration performed in the office to surgical biopsy in the operative suite. I recommended that she continue to perform self breast exams and if there is a change that she follow-up but otherwise I am comfortable with not performing a biopsy at this time.. The patient was reminded about the importance of self-breast exam. She was instructed on how to perform a complete self-breast exam. The patient was instructed to return immediately if she notes any change in her breast mass or if she has any concerns or notes other problems. Diagnoses: (R92.8) Abnormal finding on breast imaging (primary encounter diagnosis) My findings have been communicated to Doreen Oliver APRN.CNP via shared medical record. This note will be forwarded to Doreen Oliver APRN.CNP. Return to Clinic: The patient is instructed to follow-up with me as needed. Kellen Duenas MD documented in this encounter [facility] 02-28-2023 Nurse Note REVIEW OF SYSTEMS: General: The patient notes fatigue, denies weight loss, notes weight gain, denies feeling hot, and denies feelings of cold. Eyes: The patient denies glaucoma, denies eye injury/surgery, wears glasses or contacts. Ear/Nose/Throat: The patient notes allergies, denies hayfever, denies ear infections, and denies bloody noses. Cardiovascular: The patient denies chest pain, denies heart disease, denies high blood pressure,denies cardiac stent, notes prior heart attack, denies irregular heart beat, denies high cholesterol, denies poor circulation, denies heart failure, other cardiac issues, denies claudication, denies cold feet, denies peripheral arterial stent. Respiratory: The patient denies tuberculosis, denies pneumonia, denies frequent cough, denies pulmonary embolism, notes shortness of breath, and denies coughing up blood, notes asthma, notes COPD. Gastrointestinal: The patient denies difficulty swallowing, notes acid reflux, denies ulcers, denies vomiting, denies jaundice/hepatitis, denies gallbladder problems, denies black or tarry stools, denies hemorrhoids, denies bleeding from rectum, denies diverticulitis, denies constipation, notes diarrhea, notes loss of stool control, and denies hernias. Kidney/Bladder: The patient denies kidney stones, denies urine infections, and denies bloody urine. Skin: The patient denies a history of skin cancer, denies bleeding/changing moles, and denies a history of skin rash. Neurologic: The patient notes a history of epilepsy/convulsions, notes headaches, notes head/spinal injuries, and notes stroke/TIA. Psychiatric: The patient notes psychiatric medications, notes depression, and denies voices, denies substance abuse. Endocrine: The patient notes thyroid disorders, denies diabetes, and denies hormonal problems. Hematologic: The patient notes a history of bruising, denies bleeding, and denies anemia, denies blood clots. Infections: The patient denies a history of measles and mumps, denies rheumatic fever, and denies sexually transmitted diseases. Musculoskeletal: The patient notes back pain/injury, notes back problems, notes sciatica, notes knee/foot trouble, denies arthritis, or denies gout. When was patient's last Mammogram screening? 2022 Last Colonoscopy: none Hailye Du LPN documented in this encounter [facility] 02-27-2023 Miscellaneous Notes I attempted to call patient personally to discuss her recent mammogram/ultrasound, no answer and unable to leave a voicemail. If she returns call please let her know it is recommend she have a follow up biopsy to determine what the area in the left breast is specifically. She has already seen general surgery for a thyroid biopsy so she needs to see them again for breast biopsy to determine if any other follow up is needed. documented in this encounter [facility] 02-27-2023 Note HNO ID: [id number] Author: Sherri Park RDMS Service: ? Author Type: Airline Pilot Flight Instructor Type: Progress Notes Filed: 02/27/2023 3:12 PM Note Text: Radiology Service Progress Note PATIENT NAME: Lea Gomez DATE OF SERVICE: February 27, 2023 TIME: 3:12 PM PATIENT IDENTITY VERIFICATION COMPLETED USING TWO (2) IDENTIFIERS: Name and Date of confirmed by patient verbally. FALL SCREENING: Has the patient had 2 falls in the last year or 1 fall with injury or currently using an Ambulatory Assistive Device (Walker, Cane, Wheelchair, Crutches, etc.)? No PATIENT GENDER DATA: Female. status: : No status: NO. PATIENT RELEVANT IMPLANT DATA REVIEWED: Not Applicable RADIOLOGY DEPARTMENT: Ultrasound PERIPHERAL IV DATA: Not applicable SIGNED BY: Sherri Park RDMS February 27, 2023 3:12 PM [facility] 02-27-2023 Note HNO ID: [id number] Author: RT Rose Mary(R) Service: ? Author Type: Technologist Type: Progress Notes Filed: 02/27/2023 2:01 PM Note Text: Radiology Service Progress Note PATIENT NAME: Lea Gomez DATE OF SERVICE: February 27, 2023 TIME: 2:00 PM PATIENT IDENTITY VERIFICATION COMPLETED USING TWO (2) IDENTIFIERS: Name and Date of confirmed by patient verbally. FALL SCREENING: Has the patient had 2 falls in the last year or 1 fall with injury or currently using an Ambulatory Assistive Device (Walker, Cane, Wheelchair, Crutches, etc.)? No PATIENT GENDER DATA: Female. status: : No status: NO. PATIENT RELEVANT IMPLANT DATA REVIEWED: Not Applicable RADIOLOGY DEPARTMENT: Mammography PERIPHERAL IV DATA: Not applicable SIGNED BY: RT Rose Mary(R) February 27, 2023 2:00 PM [facility] 02-27-2023 History of Presen t illness Narrative Radiology Service Progress Note PATIENT NAME: Lea Gomez DATE OF SERVICE: February 27, 2023 TIME: 3:12 PM PATIENT IDENTITY VERIFICATION COMPLETED USING TWO (2) IDENTIFIERS: Name and Date of confirmed by patient verbally. FALL SCREENING: Has the patient had 2 falls in the last year or 1 fall with injury or currently using an Ambulatory Assistive Device (Walker, Cane, Wheelchair, Crutches, etc.)? No PATIENT GENDER DATA: Female. status: : No status: NO. PATIENT RELEVANT IMPLANT DATA REVIEWED: Not Applicable RADIOLOGY DEPARTMENT: Ultrasound PERIPHERAL IV DATA: Not applicable SIGNED BY: Sherri Park RDMS February 27, 2023 3:12 PM documented in this encounter [facility] 02-27-2023 History of Presen t illness Narrative Radiology Service Progress Note PATIENT NAME: Lea Gomez DATE OF SERVICE: February 27, 2023 TIME: 2:00 PM PATIENT IDENTITY VERIFICATION COMPLETED USING TWO (2) IDENTIFIERS: Name and Date of confirmed by patient verbally. FALL SCREENING: Has the patient had 2 falls in the last year or 1 fall with injury or currently using an Ambulatory Assistive Device (Walker, Cane, Wheelchair, Crutches, etc.)? No PATIENT GENDER DATA: Female. status: : No status: NO. PATIENT RELEVANT IMPLANT DATA REVIEWED: Not Applicable RADIOLOGY DEPARTMENT: Mammography PERIPHERAL IV DATA: Not applicable SIGNED BY: RT Rose Mary(R) February 27, 2023 2:00 PM documented in this encounter [facility] 02-21-2023 Miscellaneous Notes Aliyah--02/12/23 Nov--06/14/23 Last refill--01/15/23 60 with 0 refills Last labs--11/23/22 Patient has been identified by name and date of : Yes Last office visit in this department: Visit date not found RX INSTRUCTIONS: Patient aware RX will be sent to pharmacy. No need to notify patient. Patient phones requesting refills as follows: Requested Prescriptions Pending Prescriptions Disp Refills benzonatate (TESSALON PERLE) 100 mg capsule 60 capsule 0 Sig: Take 2 capsules by mouth every morning. Please review and advise. Joanne Villeda documented in this encounter [facility] 02-19-2023 Miscellaneous Notes New rx sent. Pharmacist from [facility] pharmacy calls and is asking if provider meant to send in epinephrine vial or did provider mean epi-pen? Called patient and patient states that she normally does get epi-pen. Patient had previously gotten this from [facility] and they had always sent the Epi-pen. Please send order for Epi-pen to [facility] pharmacy. Please review and advise, Sharona Castellanos RN documented in this encounter [facility] 02-14-2023 Miscellaneous Notes Patient has been identified by name and date of : Yes, Patient phones for refill(s): Requested Prescriptions Pending Prescriptions Disp Refills EPINEPHrine 1 mg/mL injection 2 mL 2 Sig: Inject 1 mL intramuscularly as needed. Date of last office visit in primary care: 02/12/2023 4 month follow-up: 06/14/2023 Last 2 Encounter Wt Readings: Date: Wt: 02/12/2023 80.7 kg (178 lb) 12/24/2022 85.3 kg (188 lb) Previous labs/tests for medication: Not applicable Please advise. Thank you. Shira Cain LPN Patient is needing epinephrine send to [facility] pharmacy in [place]. Thank you. documented in this encounter [facility] 02-12-2023 Note HNO ID: [id number] Author: Doreen Oliver APRN.TELECOMMUNICATIONS CLERK Service: ? Author Type: Nurse Practitioner Type: Progress Notes Filed: 02/12/2023 12:37 PM Note Text: JABIER Gomez is a 67 year old female here today for a check up on her medical problems. 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 She is on long-term disability due to hip pain/issues, back pain/issues, COPD, and other health conditions limiting her ability to preform job duties. Her chronic conditions limit her ability to preform tasks, she is not able to sit or stand for long periods. She is not able to walk far distances and is not able to ambulate without an assist device. She is very limited in her ability to lift any weight. She is following with orthopaedics and had surgery in October of this year, she is currently in PT/OT and seeing pain management. Left foot with a new plantar wart. Prior ones on the right. None on the left. Recent right hip surgery so favoring left side. Painful. Not red, not swollen. Tried soaking in warm water and salt. Wants cut out with a scalpel. Does see podiatry. Her medications were reviewed today and her list is now up to date. Medications Current Outpatient Medications Medication Sig benzonatate (TESSALON PERLE) 100 mg capsule Take 2 capsules by mouth every morning. promethazine (PHENERGAN) 25 mg tablet Take 1 tablet by mouth every 6 hours as needed for nausea/vomiting. acetaminophen 325 mg-caffeine 40 mg-butalbital 50 mg (FIORICET) per tablet Take 1 tablet by mouth every 6 hours as needed for headache. EPINEPHrine 1 mg/mL injection Inject 1 mL intramuscularly as needed. gabapentin (NEURONTIN) 300 mg capsule Take 1 capsule by mouth three times daily. aspirin, enteric coated (ASPIRIN, ENTERIC COATED) 81 mg EC tablet Take 81 mg by mouth once daily. tiotropium bromide (SPIRIVA WITH HANDIHALER INHALATION) Inhale 2 Puffs as instructed daily at bedtime. Acetaminophen 500 mg cap Take 1,000 mg by mouth as needed. albuterol (PROVENTIL) 2.5 mg /3 mL (0.083 %) nebulizer solution Inhale 2.5 mg as instructed every 6 hours as needed. albuterol HFA (PROVENTIL HFA, VENTOLIN HFA) 90 mcg/actuation inhaler Inhale 2 Puffs as instructed every 6 hours as needed. ARIPiprazole (ABILIFY) 5 mg tablet Take 20 mg by mouth once daily. budesonide-formoterol (SYMBICORT) 160-4.5 mcg/actuation inhaler Inhale 2 Puffs as instructed as needed. Cholecalciferol, Vitamin D3, 25 mcg (1,000 unit) cap Take 1 capsule by mouth once daily. diazePAM (VALIUM) 5 mg tablet Take 1 tablet by mouth as needed. diclofenac, EC, (VOLTAREN) 75 mg EC tablet Take 1 tablet by mouth once daily. levothyroxine (SYNTHROID) 75 mcg tablet Take 88 mcg by mouth once daily. methocarbamol (ROBAXIN) 750 mg tablet Take 1 tablet by mouth twice daily. montelukast (SINGULAIR) 10 mg tablet Take 1 tablet by mouth as directed. omeprazole (PRILOSEC) 40 mg capsule Take 1 capsule by mouth twice daily. sertraline (ZOLOFT) 100 mg tablet Take 100 mg by mouth once daily. simvastatin (ZOCOR) 40 mg tablet Take 1 tablet by mouth once daily. HYDROcodone-Acetaminophen (NORCO) 10-325 mg per tablet Take 1 tablet by mouth four times daily. dicyclomine (BENTYL) 20 mg tablet Take 1 tablet by mouth before meals and at bedtime. WALKER ROLLATOR SEAT WITH 6 WHEELS - RED Rollator walker, please send to [facility] HYDROcodone-acetaminophen (NORCO) 5-325 mg per tablet Take 1 tablet by mouth twice daily. (Patient not taking: Reported on 02/12/2023) traZODone (DESYREL) 150 mg tablet Take 2 tablets by mouth once daily. (Patient not taking: Reported on 02/12/2023) No current facility-administered medications for this visit. ALLERGIES Allergen Reactions [place] Unknown Depakote [Divalproe* Unknown Dilantin [Phenytoin] Unknown Ditropan [Oxybutyni* Unknown Influenza Virus Vac* Unknown Latex, Natural Rubb* Unknown Meloxicam (Bulk) Unknown Pravastatin Unknown Propofol Unknown Tetracycline Hcl (B* Unknown Tramadol Unknown Tylenol #3 [Codeine] Unknown Venom-Honey Bee Unknown ACTIVE PROBLEM LIST Hypoglycemia - 12/24/2022 Tia (Transient Ischemic Attack) - 12/24/2022 Chronic Obstructive Pulmonary Disease (Hcc) - 08/29/2022 Hyperlipidemia - 08/29/2022 Gastroesophageal Reflux Disease Without Esophagitis - 08/29/2022 Ptsd (Post-Traumatic Stress Disorder) - 08/29/2022 Major Depressive Disorder - 08/29/2022 Anxiety - 08/29/2022 Hypothyroidism - 08/29/2022 Vitamin D Deficiency - 08/29/2022 Scoliosis - 08/29/2022 Right Hip Pain - 08/29/2022 Femoral Loosening of Prosthetic Right Hip, Subsequent Encounter - 05/08/2022 Thyroid Nodule - 04/10/2022 Comment: Formatting of this note might be different from th (more content not included)... [facility] 02-12-2023 History of Presen t illness Narrative Images from the original note were not included. SUBJECTIVE Lea Gomez is a 67 year old female here today for a check up on her medical problems. Chief Complaint Patient presents with: Derm Problem: planters wart of left foot hurt to bear weight Forms: [employer] disability HPI Lea Gomez is a 67 year old female established patient who presents today for concerns of needing disability paperwork completed. She is on long-term disability due to hip pain/issues, back pain/issues, COPD, and other health conditions limiting her ability to preform job duties. Her chronic conditions limit her ability to preform tasks, she is not able to sit or stand for long periods. She is not able to walk far distances and is not able to ambulate without an assist device. She is very limited in her ability to lift any weight. She is following with orthopaedics and had surgery in October of this year, she is currently in PT/OT and seeing pain management. Left foot with a new plantar wart. Prior ones on the right. None on the left. Recent right hip surgery so favoring left side. Painful. Not red, not swollen. Tried soaking in warm water and salt. Wants cut out with a scalpel. Does see podiatry. Her medications were reviewed today and her list is now up to date. Medications Current Outpatient Medications Medication Sig benzonatate (TESSALON PERLE) 100 mg capsule Take 2 capsules by mouth every morning. promethazine (PHENERGAN) 25 mg tablet Take 1 tablet by mouth every 6 hours as needed for nausea/vomiting. acetaminophen 325 mg-caffeine 40 mg-butalbital 50 mg (FIORICET) per tablet Take 1 tablet by mouth every 6 hours as needed for headache. EPINEPHrine 1 mg/mL injection Inject 1 mL intramuscularly as needed. gabapentin (NEURONTIN) 300 mg capsule Take 1 capsule by mouth three times daily. aspirin, enteric coated (ASPIRIN, ENTERIC COATED) 81 mg EC tablet Take 81 mg by mouth once daily. tiotropium bromide (SPIRIVA WITH HANDIHALER INHALATION) Inhale 2 Puffs as instructed daily at bedtime. Acetaminophen 500 mg cap Take 1,000 mg by mouth as needed. albuterol (PROVENTIL) 2.5 mg /3 mL (0.083 %) nebulizer solution Inhale 2.5 mg as instructed every 6 hours as needed. albuterol HFA (PROVENTIL HFA, VENTOLIN HFA) 90 mcg/actuation inhaler Inhale 2 Puffs as instructed every 6 hours as needed. ARIPiprazole (ABILIFY) 5 mg tablet Take 20 mg by mouth once daily. budesonide-formoterol (SYMBICORT) 160-4.5 mcg/actuation inhaler Inhale 2 Puffs as instructed as needed. Cholecalciferol, Vitamin D3, 25 mcg (1,000 unit) cap Take 1 capsule by mouth once daily. diazePAM (VALIUM) 5 mg tablet Take 1 tablet by mouth as needed. diclofenac, EC, (VOLTAREN) 75 mg EC tablet Take 1 tablet by mouth once daily. levothyroxine (SYNTHROID) 75 mcg tablet Take 88 mcg by mouth once daily. methocarbamol (ROBAXIN) 750 mg tablet Take 1 tablet by mouth twice daily. montelukast (SINGULAIR) 10 mg tablet Take 1 tablet by mouth as directed. omeprazole (PRILOSEC) 40 mg capsule Take 1 capsule by mouth twice daily. sertraline (ZOLOFT) 100 mg tablet Take 100 mg by mouth once daily. simvastatin (ZOCOR) 40 mg tablet Take 1 tablet by mouth once daily. HYDROcodone-Acetaminophen (NORCO) 10-325 mg per tablet Take 1 tablet by mouth four times daily. dicyclomine (BENTYL) 20 mg tablet Take 1 tablet by mouth before meals and at bedtime. WALKER ROLLATOR SEAT WITH 6 WHEELS - RED Rollator walker, please send to [facility] HYDROcodone-acetaminophen (NORCO) 5-325 mg per tablet Take 1 tablet by mouth twice daily. (Patient not taking: Reported on 02/12/2023) traZODone (DESYREL) 150 mg tablet Take 2 tablets by mouth once daily. (Patient not taking: Reported on 02/12/2023) No current facility-administered medications for this visit. ALLERGIES Allergen Reactions [place] Unknown Depakote [Divalproe* Unknown Dilantin [Phenytoin] Unknown Ditropan [Oxybutyni* Unknown Influenza Virus Vac* Unknown Latex, Natural Rubb* Unknown Meloxicam (Bulk) Unknown Pravastatin Unknown Propofol Unknown Tetracycline Hcl (B* Unknown Tramadol Unknown Tylenol #3 [Codeine] Unknown Venom-Honey Bee Unknown ACTIVE PROBLEM LIST Hypoglycemia - 12/24/2022 Tia (Transient Ischemic Attack) - 12/24/2022 Chronic Obstructive Pulmonary Disease (Hcc) - 08/29/2022 Hyperlipidemia - 08/29/2022 Gastroesophageal Reflux Disease Without Esophagitis - 08/29/2022 Ptsd (Post-Traumatic Stress Disorder) - 08/29/2022 Major Depressive Disorder - 08/29/2022 Anxiety - 08/29/2022 Hypothyroidism - 08/29/2022 Vitamin D Deficiency - 08/29/2022 Scoliosis - 08/29/2022 Right Hip Pain - 08/29/2022 Femoral Loosening of Prosthetic Right Hip, Subsequent Encounter - 05/08/2022 Thyroid Nodule - 04/10/2022 Comment: 04/10/22: Multiple thyroid nodules found on US 12/22/21 (results reviewed and scanned to chart). Lesion in lower pole of right gland 1.4 cm, TR 4; recommended f/u in 1 year. Lesion at the lower pole of the left lobe 2.7 cm, TR 3; recommended FNA; ordered Social History Tobacco Use Smoking status: Never Smokeless tobacco: Never Vaping Use Vaping Use: Never used Substance Use Topics Alcohol use: Never Drug use: Never Review of Systems Constitutional: Negative. Cardiovascular: Negative. OBJECTIVE BP 84/60 Pulse 66 Wt 178 lb (80.7kg) SpO2 96% Physical Exam Vitals and nursing note reviewed. Constitutional: General: She is not in acute distress. Appearance: She is not ill-appearing, toxic-appearing or diaphoretic. Cardiovascular: Rate and Rhythm: Normal rate and regular rhythm. Heart sounds: Normal heart sounds. Pulmonary: Effort: Pulmonary effort is normal. No respiratory distress. Breath sounds: Normal breath sounds. Musculoskeletal: Feet: Skin: General: Skin is warm and dry. Capillary Refill: Capillary refill takes less than 2 seconds. Neurological: General: No focal deficit present. Mental Status: She is alert and oriented to person, place, and time. Mental status is at baseline. Psychiatric: Mood and Affect: Mood normal. Behavior: Behavior normal. Thought Content: Thought content normal. Judgment: Judgment normal. ASSESSMENT/PLAN: 1. Plantar wart of left foot - ICD9: 078.12, ICD10: B07.0 (primary diagnosis) Would prefer this be cut out rather than froze, will have her address with podiatry. 2. Limitation of activities due to disability - ICD9: 799.89, ICD10: Z73.6 Paperwork completed, copy to be scanned in to chart. She is severely limited due to her chronic conditions and pain. 3. Scoliosis, unspecified scoliosis type, unspecified spinal region - ICD9: 737.30, ICD10: M41.9 4. Right hip pain - ICD9: 719.45, ICD10: M25.551 5. Femoral loosening of prosthetic right hip, subsequent encounter - ICD9: V58.89, 996.41, ICD10: T84.030D 6. Chronic obstructive pulmonary disease, unspecified COPD type (HCC) - ICD9: 496, ICD10: J44.9 Portions of this note have been entered by ancillary staff. I have reviewed and when necessary edited, so that they are an adequate record of my encounter with this patient Please note that parts of this document were created using voice recognition software and therefore may contain grammatical errors. Patient verbalizes understanding of instructions from today's visit and in agreement with treatment plan. Questions answered. Agrees to call the office if questions, concerns of issues with acute symptoms not improving or if they worsen. I spent a total of 23 minutes on the date of the service which included preparing to see the patient, [id number] patient care, completing clinical documentation, obtaining and/or reviewing separately obtained history, performing a medically appropriate examination, and counseling and educating the patient/family/caregiver. Return if symptoms worsen or fail to improve. Doreen Oliver APRN-WHITNEY documented in this encounter [facility] 02-01-2023 Miscellaneous Notes Rec'd fax from [facility]. They are asking for medical records from 08/02/2022 to present. This has been faxed to [facility] medical records release. documented in this encounter [facility] 01-04-2023 Miscellaneous Notes PATIENT NOTIFIED OF SAME. 20 mg is the highest dose but we can increase the frequency from 2 a day to 4 a day. New script sent. Patient is calling in today stating that she still has diarrhea and wants to see if you can increase the medication for this. States she is taking Bentyl 20 mg and wants to see if this can be increased to 30 mg? Please contact patient [phone]. If this can be increased please send to [facility] in [place]. Maribel Bolden Pss documented in this encounter [facility] 01-01-2023 Miscellaneous Notes PATIENT NOTIFIED OF SAME. Will call back for number as she did not have anything to write on. Breast Imaging Scheduling Department at [phone] or ext [phone]. Please call patient and let her know that recent mammogram needs more images checked. I placed orders for the follow up mammogram and ultrasound. documented in this encounter [facility] 01-01-2023 Miscellaneous Notes January 02, 2023 PID: [id number] Lea Gomez [address] [place] [address] Dear Ms. Gomez, Your breast imaging exam 12/31/2022 showed a possible finding that may require additional imaging studies for a complete evaluation. However, we recognize you have prior imaging studies at facilities other than [facility], and would like the opportunity to compare your recent imaging with those studies to evaluate for any change. At this time, we have requested your prior studies. If/when your prior studies arrive, a final report will be sent to your healthcare provider and/or you. In addition, you will receive a new result letter and or phone call If you need additional imaging. If we do not receive prior studies within 30 days of your exam, you will receive a reminder letter and or phone call to schedule your diagnostic imaging. Your imaging studies and reports are kept on file at [facility] as part of your permanent medical record, and are available for your continuing care. If you have any questions or concerns, please call [phone]. Thank you for choosing [facility] for your imaging needs. Sincerely, Dr. Hein Interpreting Radiologist [facility] documented in this encounter [facility] 12-31-2022 Note HNO ID: [id number] Author: RT Jessika(R) Service: ? Author Type: Technologist Type: Progress Notes Filed: 12/31/2022 2:00 PM Note Text: Radiology Service Progress Note PATIENT NAME: Lea Gomez DATE OF SERVICE: December 31, 2022 TIME: 2:00 PM PATIENT IDENTITY VERIFICATION COMPLETED USING TWO (2) IDENTIFIERS: Name and Date of confirmed by patient verbally. FALL SCREENING: Has the patient had 2 falls in the last year or 1 fall with injury or currently using an Ambulatory Assistive Device (Walker, Cane, Wheelchair, Crutches, etc.)? No PATIENT GENDER DATA: Female. status: : No status: NO. PATIENT RELEVANT IMPLANT DATA REVIEWED: Not Applicable RADIOLOGY DEPARTMENT: Mammography PERIPHERAL IV DATA: Not applicable SIGNED BY: RT Jessika(R) December 31, 2022 2:00 PM [facility] 12-31-2022 History of Presen t illness Narrative Radiology Service Progress Note PATIENT NAME: Lea Gomez DATE OF SERVICE: December 31, 2022 TIME: 2:00 PM PATIENT IDENTITY VERIFICATION COMPLETED USING TWO (2) IDENTIFIERS: Name and Date of confirmed by patient verbally. FALL SCREENING: Has the patient had 2 falls in the last year or 1 fall with injury or currently using an Ambulatory Assistive Device (Walker, Cane, Wheelchair, Crutches, etc.)? No PATIENT GENDER DATA: Female. status: : No status: NO. PATIENT RELEVANT IMPLANT DATA REVIEWED: Not Applicable RADIOLOGY DEPARTMENT: Mammography PERIPHERAL IV DATA: Not applicable SIGNED BY: RT Jessika(R) December 31, 2022 2:00 PM documented in this encounter [facility] 12-27-2022 Note . MICRO - Microbiology PROCEDURE: Acid Fast Bacilli Culture w Stain if Ind [*1] SOURCE: Tissue BODY SITE: Hip R COLLECTED DATE/TIME: 10/30/2022 11:58 EST RECEIVED DATE/TIME: 10/30/2022 21:25 EST START DATE/TIME: 10/30/2022 21:25 EST FREE TEXT SOURCE: ACETABULAR MEMBRANE #2 FINAL REPORTS Final Report [] Verified Date/Time/Personnel: 12/27/2022 08:10 EDT No growth of Acid Fast Bacilli PRELIMINARY REPORTS Preliminary Report [] Verified Date/Time/Personnel: 12/13/2022 08:44 EDT No growth of Acid Fast Bacilli to date. Final report to follow at 8 weeks. STAINS AFS [] Verified Date/Time/Personnel: 10/31/2022 13:05 EST Acid Fast Smear from Concentrated Specimen: Negative Performing Locations *1: This test was performed at: [address], [facility] , [facility] ([place]) 12-27-2022 Note . MICRO - Microbiology PROCEDURE: Acid Fast Bacilli Culture w Stain if Ind [*1] SOURCE: Tissue BODY SITE: Hip R COLLECTED DATE/TIME: 10/30/2022 11:53 EST RECEIVED DATE/TIME: 10/30/2022 21:22 EST START DATE/TIME: 10/30/2022 21:22 EST FREE TEXT SOURCE: 2. ACETABULAR MEMBRANE #1 FINAL REPORTS Final Report [] Verified Date/Time/Personnel: 12/27/2022 08:10 EDT No growth of Acid Fast Bacilli PRELIMINARY REPORTS Preliminary Report [] Verified Date/Time/Personnel: 12/13/2022 08:42 EDT No growth of Acid Fast Bacilli to date. Final report to follow at 8 weeks. STAINS AFS [] Verified Date/Time/Personnel: 10/31/2022 13:05 EST Acid Fast Smear from Concentrated Specimen: Negative Performing Locations *1: This test was performed at: [address], [facility] , [facility] ([place]) 12-27-2022 Note . MICRO - Microbiology PROCEDURE: Acid Fast Bacilli Culture w Stain if Ind [*1] SOURCE: Tissue BODY SITE: Hip R COLLECTED DATE/TIME: 10/30/2022 11:53 EST RECEIVED DATE/TIME: 10/30/2022 21:23 EST START DATE/TIME: 10/30/2022 21:23 EST FREE TEXT SOURCE: 1. INFERIOR SYNOVIUM FINAL REPORTS Final Report [] Verified Date/Time/Personnel: 12/27/2022 08:10 EDT No growth of Acid Fast Bacilli PRELIMINARY REPORTS Preliminary Report [] Verified Date/Time/Personnel: 12/13/2022 08:43 EDT No growth of Acid Fast Bacilli to date. Final report to follow at 8 weeks. STAINS AFS [] Verified Date/Time/Personnel: 10/31/2022 13:05 EST Acid Fast Smear from Concentrated Specimen: Negative Performing Locations *1: This test was performed at: [address], [facility] , [facility] ([place]) 12-26-2022 Miscellaneous Notes PATIENT NOTIFIED OF SAME. Patient to call back for number. No problem to order a TENS, can we let her know I often send orders for those through: [facility]. [address] [place] [address] [address] [place] [id number], phone is [phone]. She could call and check if insurance works with them. Patient calling forgot to ask for order for TENS unit when she was in the office today, to use with her right hip pain. Patient will have to check with her insurance where to send the order to, does not know what DME is covered. Patient will have to call back with that information. Please advise documented in this encounter [facility] 12-24-2022 Miscellaneous Notes Detailed message left for pharmacy. Ok for the promethazine, can let pharmacy know. She has been taking this without nay issues. Patricia from [facility] states she received an Rx for promethazine. Patricia reports there could be an interaction with one of pt's other medications, Gepp. OK to pt to take? Please advise. Joanne Jacobs LPN documented in this encounter [facility] 12-24-2022 Note HNO ID: [id number] Author: Doreen Oliver APRN.WHITNEY Service: ? Author Type: Nurse Practitioner Type: Progress Notes Filed: 12/24/2022 12:39 PM Note Text: SUBJECTIVE Lea Gomez is a 67 year old female here today for a check up on her medical problems. Chief Complaint Patient presents with: F/U 3 Month HPI Lea Gomez is a 67 year old female established patient. Since last visit she had her right hip surgery with orthopaedics, Dr. Smart for the loosening of her prior prosthetic hardware. Per patient surgery went well. Fatigue is better, some issues with low hgb after surgery but has improved with iron supplements. Fecal occult stool was negative. Doing PT with [facility]. 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 Other providers include Dr. Ashraf for mental health, Dr. Lira for podiatry, neuro (saw Kaycee Younger APRN), Dr. Cardona for general surgery, pain management (going to go to [facility]), and Dr. Saavedra for pulmonary. Needs refills today for Fioricet which she takes for intermittent headaches and phenergan for nausea. Her medications were reviewed today and her list is now up to date. Medications Current Outpatient Medications Medication Sig dicyclomine (BENTYL) 20 mg tablet Take 1 tablet by mouth twice daily. benzonatate (TESSALON PERLE) 100 mg capsule Take 2 capsules by mouth every morning. EPINEPHrine 1 mg/mL injection Inject 1 mL intramuscularly as needed. gabapentin (NEURONTIN) 300 mg capsule Take 1 capsule by mouth three times daily. aspirin, enteric coated (ASPIRIN, ENTERIC COATED) 81 mg EC tablet Take 81 mg by mouth once daily. tiotropium bromide (SPIRIVA WITH HANDIHALER INHALATION) Inhale 2 Puffs as instructed daily at bedtime. Acetaminophen 500 mg cap Take 1,000 mg by mouth as needed. albuterol (PROVENTIL) 2.5 mg /3 mL (0.083 %) nebulizer solution Inhale 2.5 mg as instructed every 6 hours as needed. albuterol HFA (PROVENTIL HFA, VENTOLIN HFA) 90 mcg/actuation inhaler Inhale 2 Puffs as instructed every 6 hours as needed. ARIPiprazole (ABILIFY) 5 mg tablet Take 1 tablet by mouth once daily. budesonide-formoterol (SYMBICORT) 160-4.5 mcg/actuation inhaler Inhale 2 Puffs as instructed as needed. Cholecalciferol, Vitamin D3, 25 mcg (1,000 unit) cap Take 1 capsule by mouth once daily. diazePAM (VALIUM) 5 mg tablet Take 1 tablet by mouth as needed. diclofenac, EC, (VOLTAREN) 75 mg EC tablet Take 1 tablet by mouth once daily. HYDROcodone-acetaminophen (NORCO) 5-325 mg per tablet Take 1 tablet by mouth twice daily. levothyroxine (SYNTHROID) 75 mcg tablet Take 88 mcg by mouth once daily. methocarbamol (ROBAXIN) 750 mg tablet Take 1 tablet by mouth twice daily. montelukast (SINGULAIR) 10 mg tablet Take 1 tablet by mouth as directed. omeprazole (PRILOSEC) 40 mg capsule Take 1 capsule by mouth twice daily. sertraline (ZOLOFT) 100 mg tablet Take 100 mg by mouth once daily. simvastatin (ZOCOR) 40 mg tablet Take 1 tablet by mouth once daily. traZODone (DESYREL) 150 mg tablet Take 2 tablets by mouth once daily. promethazine (PHENERGAN) 25 mg tablet Take 1 tablet by mouth every 6 hours as needed for nausea/vomiting. acetaminophen 325 mg-caffeine 40 mg-butalbital 50 mg (FIORICET) per tablet Take 1 tablet by mouth every 6 hours as needed for headache. WALKER ROLLATOR SEAT WITH 6 WHEELS - RED Rollator walker, please send to [facility] No current facility-administered medications for this visit. ALLERGIES Allergen Reactions [place] Unknown Depakote [Divalproe* Unknown Dilantin [Phenytoin] Unknown Ditropan [Oxybutyni* Unknown Influenza Virus Vac* Unknown Latex, Natural Rubb* Unknown Meloxicam (Bulk) Unknown Pravastatin Unknown Propofol Unknown Tetracycline Hcl (B* Unknown Tramadol Unknown Tylenol #3 [Codeine] Unknown Venom-Honey Bee Unknown ACTIVE PROBLEM LIST Hypoglycemia - 12/24/2022 Tia (Transient Ischemic Attack) - 12/24/2022 Chronic Obstructive Pulmonary Disease (Hcc) - 08/29/2022 Hyperlipidemia - 08/29/2022 Gastroesophageal Reflux Disease Without Esophagitis - 08/29/2022 Ptsd (Post-Traumatic Stress Disorder) - 08/29/2022 Major Depressive Disorder - 08/29/2022 Anxiety - 08/29/2022 Hypothyroidism - 08/29/2022 Vitamin D Deficiency - 08/29/2022 Scoliosis - 08/29/2022 Right Hip Pain - 08/29/2022 Femoral Loosening of Prosthetic Right Hip, Subsequent Encounter - 05/08/2022 Thyroid Nodule - 04/10/2022 Comment: 04/10/22: Multiple thyroid nodules found on US 12/22/21 (results reviewed and scanned to chart). Lesion in lower pole of right gland 1.4 cm, TR 4; recommended f/u in 1 year. Lesion at the lower pole of the left lobe 2.7 cm, TR 3; recommended FNA; ordered Social History Tobacco Use Smoking status: Never Smokeless tobacco: Never Vaping Use Vaping Use: Never used Substance Use Topics Alcohol use: Never Drug use: Never Review o (more content not included)... [facility] 12-24-2022 History of Presen t illness Narrative SUBJECTIVE Lea Gomez is a 67 year old female here today for a check up on her medical problems. Chief Complaint Patient presents with: F/U 3 Month HPI Lea Gomez is a 67 year old female established patient. Since last visit she had her right hip surgery with orthopaedics, Dr. Smart for the loosening of her prior prosthetic hardware. Per patient surgery went well. Fatigue is better, some issues with low hgb after surgery but has improved with iron supplements. Fecal occult stool was negative. Doing [facility]. 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 Other providers include Dr. Ashraf for mental health, Dr. Lira for podiatry, neuro (saw Kaycee Younger, [facility]), Dr. Cardona for general surgery, pain management (going to go to [facility]), and Dr. Saavedra for pulmonary. Needs refills today for Fioricet which she takes for intermittent headaches and phenergan for nausea. Her medications were reviewed today and her list is now up to date. Medications Current Outpatient Medications Medication Sig dicyclomine (BENTYL) 20 mg tablet Take 1 tablet by mouth twice daily. benzonatate (TESSALON PERLE) 100 mg capsule Take 2 capsules by mouth every morning. EPINEPHrine 1 mg/mL injection Inject 1 mL intramuscularly as needed. gabapentin (NEURONTIN) 300 mg capsule Take 1 capsule by mouth three times daily. aspirin, enteric coated (ASPIRIN, ENTERIC COATED) 81 mg EC tablet Take 81 mg by mouth once daily. tiotropium bromide (SPIRIVA WITH HANDIHALER INHALATION) Inhale 2 Puffs as instructed daily at bedtime. Acetaminophen 500 mg cap Take 1,000 mg by mouth as needed. albuterol (PROVENTIL) 2.5 mg /3 mL (0.083 %) nebulizer solution Inhale 2.5 mg as instructed every 6 hours as needed. albuterol HFA (PROVENTIL HFA, VENTOLIN HFA) 90 mcg/actuation inhaler Inhale 2 Puffs as instructed every 6 hours as needed. ARIPiprazole (ABILIFY) 5 mg tablet Take 1 tablet by mouth once daily. budesonide-formoterol (SYMBICORT) 160-4.5 mcg/actuation inhaler Inhale 2 Puffs as instructed as needed. Cholecalciferol, Vitamin D3, 25 mcg (1,000 unit) cap Take 1 capsule by mouth once daily. diazePAM (VALIUM) 5 mg tablet Take 1 tablet by mouth as needed. diclofenac, EC, (VOLTAREN) 75 mg EC tablet Take 1 tablet by mouth once daily. HYDROcodone-acetaminophen (NORCO) 5-325 mg per tablet Take 1 tablet by mouth twice daily. levothyroxine (SYNTHROID) 75 mcg tablet Take 88 mcg by mouth once daily. methocarbamol (ROBAXIN) 750 mg tablet Take 1 tablet by mouth twice daily. montelukast (SINGULAIR) 10 mg tablet Take 1 tablet by mouth as directed. omeprazole (PRILOSEC) 40 mg capsule Take 1 capsule by mouth twice daily. sertraline (ZOLOFT) 100 mg tablet Take 100 mg by mouth once daily. simvastatin (ZOCOR) 40 mg tablet Take 1 tablet by mouth once daily. traZODone (DESYREL) 150 mg tablet Take 2 tablets by mouth once daily. promethazine (PHENERGAN) 25 mg tablet Take 1 tablet by mouth every 6 hours as needed for nausea/vomiting. acetaminophen 325 mg-caffeine 40 mg-butalbital 50 mg (FIORICET) per tablet Take 1 tablet by mouth every 6 hours as needed for headache. WALKER ROLLATOR SEAT WITH 6 WHEELS - RED Rollator walker, please send to [facility] No current facility-administered medications for this visit. ALLERGIES Allergen Reactions [place] Unknown Depakote [Divalproe* Unknown Dilantin [Phenytoin] Unknown Ditropan [Oxybutyni* Unknown Influenza Virus Vac* Unknown Latex, Natural Rubb* Unknown Meloxicam (Bulk) Unknown Pravastatin Unknown Propofol Unknown Tetracycline Hcl (B* Unknown Tramadol Unknown Tylenol #3 [Codeine] Unknown Venom-Honey Bee Unknown ACTIVE PROBLEM LIST Hypoglycemia - 12/24/2022 Tia (Transient Ischemic Attack) - 12/24/2022 Chronic Obstructive Pulmonary Disease (Hcc) - 08/29/2022 Hyperlipidemia - 08/29/2022 Gastroesophageal Reflux Disease Without Esophagitis - 08/29/2022 Ptsd (Post-Traumatic Stress Disorder) - 08/29/2022 Major Depressive Disorder - 08/29/2022 Anxiety - 08/29/2022 Hypothyroidism - 08/29/2022 Vitamin D Deficiency - 08/29/2022 Scoliosis - 08/29/2022 Right Hip Pain - 08/29/2022 Femoral Loosening of Prosthetic Right Hip, Subsequent Encounter - 05/08/2022 Thyroid Nodule - 04/10/2022 Comment: 04/10/22: Multiple thyroid nodules found on US 12/22/21 (results reviewed and scanned to chart). Lesion in lower pole of right gland 1.4 cm, TR 4; recommended f/u in 1 year. Lesion at the lower pole of the left lobe 2.7 cm, TR 3; recommended FNA; ordered Social History Tobacco Use Smoking status: Never Smokeless tobacco: Never Vaping Use Vaping Use: Never used Substance Use Topics Alcohol use: Never Drug use: Never Review of Systems Respiratory: Negative. Cardiovascular: Negative. Musculoskeletal: Positive for arthralgias. OBJECTIVE BP 100/74 Pulse 59 Wt 188 lb (85.3kg) SpO2 94% Physical Exam Vitals and nursing note reviewed. Constitutional: General: She is awake. She is not in acute distress. Appearance: Normal appearance. She is well-developed and well-groomed. She is not ill-appearing, toxic-appearing or diaphoretic. HENT: Head: Normocephalic. Right Ear: External ear normal. Left Ear: External ear normal. Nose: Nose normal. Eyes: General: Vision grossly intact. Conjunctiva/sclera: Conjunctivae normal. Pupils: Pupils are equal, round, and reactive to light. Neck: Vascular: No JVD. Trachea: Trachea normal. Cardiovascular: Rate and Rhythm: Normal rate and regular rhythm. Pulses: Normal pulses. Heart sounds: Normal heart sounds. No murmur heard. Pulmonary: Effort: Pulmonary effort is normal. No accessory muscle usage, prolonged expiration or respiratory distress. Breath sounds: Normal breath sounds. Musculoskeletal: Cervical back: Neck supple. Skin: General: Skin is warm and dry. Capillary Refill: Capillary refill takes less than 2 seconds. Neurological: General: No focal deficit present. Mental Status: She is alert and oriented to person, place, and time. Mental status is at baseline. Psychiatric: Attention and Perception: Attention and perception normal. Mood and Affect: Mood and affect normal. Speech: Speech normal. Behavior: Behavior normal. Behavior is cooperative. Thought Content: Thought content normal. Cognition and Memory: Cognition and memory normal. Judgment: Judgment normal. ASSESSMENT/PLAN: 1. Femoral loosening of prosthetic right hip, subsequent encounter - ICD9: V58.89, 996.41, ICD10: T84.030D (primary diagnosis) Doing well post-op, follow with PT and [facility]. 2. Right hip pain - ICD9: 719.45, ICD10: M25.551 3. Chronic post-operative pain - ICD9: 338.28, ICD10: G89.28 Following with pain provider. 4. Anemia, unspecified type - ICD9: 285.9, ICD10: D64.9 Stable, continue current supplements. 5. Nonintractable episodic headache, unspecified headache type - ICD9: 784.0, ICD10: R51.9 - COEHGUBZLQ-WCAUNQCJVSQNP-ZCUPIOC E 50 MG-325 MG-40 MG TABLET 6. TIA (transient ischemic attack) - ICD9: 435.9, ICD10: G45.9 Following with neuro 7. Nausea - ICD9: 787.02, ICD10: R11.0 - PROMETHAZINE 25 MG TABLET 8. Chronic obstructive pulmonary disease, unspecified COPD type (HCC) - ICD9: 496, ICD10: J44.9 Stable, following pulmonary 9. Encounter for screening mammogram for breast cancer - ICD9: V76.12, ICD10: Z12.31 - BLACK SCREENING Portions of this note have been entered by ancillary staff. I have reviewed and when necessary edited, so that they are an adequate record of my encounter with this patient Please note that parts of this document were created using voice recognition software and therefore may contain grammatical errors. Patient verbalizes understanding of instructions from today's visit and in agreement with treatment plan. Questions answered. Agrees to call the office if questions, concerns of issues with acute symptoms not improving or if they worsen. See diagnoses and orders for additional plan(s). Allergies and medications were reviewed, list was updated, and refills given if needed. Past medical, surgical, social, and family history reviewed and updated as appropriate. Encouraged proper diet & exercise as well as compliance with taking medications. Age-appropriate health preventative measures were discussed. Return in about 4 months (around 04/25/2023) for Follow up on chronic conditions and medications.. Doreen Oliver APRN-WHITNEY documented in this encounter [facility] 12-17-2022 Note Patient Outreach (LAURI CAN) LEA GOMEZ ([id number]) 1955 F DEF Date Time Provider Department 12/17/22 NO PCP NETNAV During your visit today, we recorded the following information about you: Kami Diaz 12/17/2022 11:55 AM Signed POPULATION HEALTH NAVIGATION OUTREACH Action/[facility] Support: Called pt to schedule an appt in Pain Management. No voicemail, unable to lvm Patient Identified by Name and : NO Outreach Outcome/Action Unable to reach patient: Left message Did you use a PCP flex slot to schedule this appointment? No Reason for Outreach Care Gap or Scheduling/Wellness visits Payer: Payor: [employer] MEDICARE / Plan: [employer] / Product Type: HMO / Care Gap Reviewed:: Specialty Scheduling Reminder: Reminder note to check Health Maintenance for items below Health Maintenance items due: SPIROMETRY Never done MAMMOGRAM Never done BONE DENSITY Never done ADVANCE DIRECTIVE DISCUSSION Never done Navigation Signature: Kami Diaz December 17, 2022 11:54 AM Allergies As of Date: 12/17/2022 Noted Allergy Reaction [facility] 09/18/2022 16 - Unknown DEPAKOTE (DIVALPROEX) 09/18/2022 16 - Unknown DILANTIN (PHENYTOIN) 09/18/2022 16 - Unknown DITROPAN (OXYBUTYNIN) 09/18/2022 16 - Unknown INFLUENZA VIRUS VACCINES 09/18/2022 16 - Unknown LATEX, NATURAL RUBBER 09/18/2022 16 - Unknown MELOXICAM (BULK) 09/18/2022 16 - Unknown PRAVASTATIN 09/18/2022 16 - Unknown PROPOFOL 09/18/2022 16 - Unknown TETRACYCLINE HCL (BULK) 09/18/2022 16 - Unknown TRAMADOL 09/18/2022 16 - Unknown TYLENOL #3 (CODEINE) 09/18/2022 16 - Unknown VENOM-HONEY BEE 09/18/2022 16 - Unknown Date Reviewed: 10/12/2022 Reviewed by: Marina Rosario LPN - Fully Assessed Prescriptions as of 12/17/2022 - dicyclomine (BENTYL) 20 mg tablet Take 1 tablet by mouth twice daily. - benzonatate (TESSALON PERLE) 100 mg capsule Take 2 capsules by mouth every morning. - EPINEPHrine 1 mg/mL injection Inject 1 mL intramuscularly as needed. - gabapentin (NEURONTIN) 300 mg capsule Take 1 capsule by mouth three times daily. - WALKER ROLLATOR SEAT WITH 6 WHEELS - RED Rollator walker, please send to [employer] - aspirin, enteric coated (ASPIRIN, ENTERIC COATED) 81 mg EC tablet Take 81 mg by mouth once daily. - tiotropium bromide (SPIRIVA WITH HANDIHALER INHALATION) Inhale 2 Puffs as instructed daily at bedtime. - Acetaminophen 500 mg cap Take 1,000 mg by mouth as needed. - albuterol (PROVENTIL) 2.5 mg /3 mL (0.083 %) nebulizer solution Inhale 2.5 mg as instructed every 6 hours as needed. - albuterol HFA (PROVENTIL HFA, VENTOLIN HFA) 90 mcg/actuation inhaler Inhale 2 Puffs as instructed every 6 hours as needed. - ARIPiprazole (ABILIFY) 5 mg tablet Take 1 tablet by mouth once daily. - budesonide-formoterol (SYMBICORT) 160-4.5 mcg/actuation inhaler Inhale 2 Puffs as instructed as needed. - Cholecalciferol, Vitamin D3, 25 mcg (1,000 unit) cap Take 1 capsule by mouth once daily. - diazePAM (VALIUM) 5 mg tablet Take 1 tablet by mouth as needed. - diclofenac, EC, (VOLTAREN) 75 mg EC tablet Take 1 tablet by mouth once daily. - HYDROcodone-acetaminophen (NORCO) 5-325 mg per tablet Take 1 tablet by mouth twice daily. - levothyroxine (SYNTHROID) 75 mcg tablet Take 88 mcg by mouth once daily. - methocarbamol (ROBAXIN) 750 mg tablet Take 1 tablet by mouth twice daily. - montelukast (SINGULAIR) 10 mg tablet Take 1 tablet by mouth as directed. - omeprazole (PRILOSEC) 40 mg capsule Take 1 capsule by mouth twice daily. - promethazine (PHENERGAN) 25 mg tablet Take 1 tablet by mouth as needed. - sertraline (ZOLOFT) 100 mg tablet Take 100 mg by mouth once daily. - simvastatin (ZOCOR) 40 mg tablet Take 1 tablet by mouth once daily. - traZODone (DESYREL) 150 mg tablet Take 2 tablets by mouth once daily. 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 Author Type: ? Type: Progress Notes Filed: 12/17/2022 11:55 AM Note Text: POPULATION HEALTH NAVIGATION OUTREACH Action/[facility] Support: Called pt to schedule an appt in Pain Management. No voicemail, unable to lvm Patient Identified by Name and : NO Outreach Outcome/Action Unable to reach patient: Left message Did you use a PCP flex slot to schedule this appointment? No Reason for Outreach Care Gap or Scheduling/Wellness visits Payer: Payor: [employer] MEDICARE / Plan: [employer] / Product Type: HMO / Care Gap Reviewed:: Specialty Scheduling Reminder: Reminder note to check Health Maintenance for items below Health Maintenance items due: SPIROMETRY Never done MAMMOGRAM Never done BONE DENSITY Never done ADVANCE DIRECTIVE DISCUSSION Never done Navigation Signature: Kami Diaz December 17, 2022 11:54 AM [facility] 12-17-2022 History of Presen t illness Narrative POPULATION HEALTH NAVIGATION OUTREACH Action/[facility] Support: Called pt to schedule an appt in Pain Management. No voicemail, unable to lvm Patient Identified by Name and : NO Outreach Outcome/Action Unable to reach patient: Left message Did you use a PCP flex slot to schedule this appointment? No Reason for Outreach Care Gap or Scheduling/Wellness visits Payer: Payor: [employer] MEDICARE / Plan: [employer] / Product Type: HMO / Care Gap Reviewed:: Specialty Scheduling Reminder: Reminder note to check Health Maintenance for items below Health Maintenance items due: SPIROMETRY Never done MAMMOGRAM Never done BONE DENSITY Never done ADVANCE DIRECTIVE DISCUSSION Never done Navigation Signature: Kami Diaz December 17, 2022 11:54 AM documented in this encounter [facility] 12-12-2022 Hospital Discharg e instructions Patient Education 12/12/2022 14:59:44 Hip Strain Hip Strain You have a strain of the muscles around the hip joint. A muscle strain is a stretching or tearing of muscle fibers. This causes pain, especially when you move that muscle. There may also be some swelling and bruising. Home care Stay off the injured leg as much as possible until you can walk on it without pain. If you have a lot of pain with walking, crutches or a walker may be prescribed. These can be rented or purchased at many pharmacies and surgical or orthopedic supply stores. Follow your healthcare provider's advice about when to start putting weight on that leg. Apply an ice pack over the injured area for 15 to 20 minutes every 3 to 6 hours. Do this for the first 24 to 48 hours. You can make an ice pack by filling a plastic bag that seals at the top with ice cubes and then wrapping it with a thin towel. Be careful not to injure your skin with the ice treatments. Ice should never be applied directly to skin. Continue the use of ice packs for relief of pain and swelling as needed. After 48 hours, apply heat (warm shower or warm bath) for 15 to 20 minutes several times a day, or alternate ice and heat. You may use wdvu-ztf-[id number] pain medicine to control pain, unless another pain medicine was prescribed. If you have chronic liver or kidney disease or ever had a stomach ulcer or gastrointestinal bleeding, talk with your healthcare provider before using these medicines. If you play sports, you may resume these activities when you are able to hop and run on the injured leg without pain. Follow-up care Follow up with your healthcare provider, or as advised. If your symptoms don't start to get better after a week, more tests may be needed. If X-rays were taken, you will be told of any new findings that may affect your care. When to seek medical advice Call your healthcare provider right away if any of these occur: Increased swelling or bruising Increased pain Losing the ability to put weight on the injured side [phone] [employer]. [address] [place] [address]. All rights reserved. This information is not intended as a substitute for professional medical care. Always follow your healthcare professional's instructions. 12/12/2022 14:59:37 After Total Hip Replacement: Recovering at Home After Total Hip Replacement: Recovering at Home Whether you re recovering at home or in a rehabilitation facility, you need to protect your new hip. Sit and move the way you were taught in the hospital. Be sure to see your surgeon for scheduled follow-up visits, and return to activity slowly. A total hip replacement is major surgery, so don t be surprised if it takes a few months before you feel really good. See your surgeon Post-op visits allow your surgeon to make sure your hip is healing well. Stitches or stephenie are often taken out about 2 weeks after surgery. Call 911 Call 911 right away if you have any of the following: Chest pain Shortness of breath Dizziness or confusion When to call your healthcare provider Call your surgeon or other healthcare provider right away if you have any of the following: Hip pain gets worse Pain or swelling in your calf or leg not related to your incision Tenderness or redness in your calf Fever of 100.4 F (38 C) or higher, or as directed by your healthcare provider Shaking chills Swelling or redness at the incision site gets worse Fluid draining from the incision Returning to activity Practice walking daily. Try to do more each week. Start by getting your own glass of water. If the weather is good, walk to the corner to mail a letter. Keep at it that s the main thing. Sitting and dressing To protect your new hip, an occupational therapist or physical therapist will teach you safer ways of doing daily tasks. Use the following tips when sitting, dressing, or using stairs. To sit, back up until the edge of the chair touches your leg. Then, using the armrests to support your weight, lower yourself into the seat. Always keep your operated leg out in front. To pull on socks and shoes, use a long-handled device, such as a grasper or hook. Try this with slip-on shoes first. To wash your feet and legs, use a long-handled sponge and a shower hose. To use stairs, step up first with your good leg. Then bring your operated leg up to meet it. When going down, step down first with your operated leg. Returning to sex After the incision heals and you regain some hip movement, you may be ready to have sex. Ask your surgeon or the office nurse about when it is safe to start having sex, and what positions are safe. Maintaining your new joint An infection in your body could harm the new joint. Talk with your surgeon before scheduling medical or dental procedures. You may need to take antibiotics to prevent infection, even years after your surgery. To check joint stability over time, you may have X-rays every year or two. [phone] [employer]. [address] [place] [address]. All rights reserved. This information is not intended as a substitute for professional medical care. Always follow your healthcare professional's instructions. Follow Up Care 12/12/2022 14:17:10 With:DOREEN OLIVER APRN-TELECOMMUNICATIONS CLERK Address: [address] [place] [phone] When:2-4 days [facility] 12-12-2022 Miscellaneous Notes Last office visit: 09/24/22 Next appointment scheduled: 12/24/22 Patient has been identified by name and date of : Yes Requested Prescriptions Pending Prescriptions Disp Refills dicyclomine (BENTYL) 20 mg tablet 60 tablet 2 Sig: Take 1 tablet by mouth twice daily. RX INSTRUCTIONS: Patient aware RX will be sent to pharmacy. No need to notify patient. Andree Jay documented in this encounter [facility] 12-12-2022 Miscellaneous Notes Referral faxed to [facility] and patient aware of same. Pain management referral ordered. Patient calls to request a referral to pain management for [facility]. Patient reports she is 5 weeks post-op right hip replacement and having quite a bit of pain. Pended per request. Three month follow up with provider previously scheduled for 12/24/2022. Cyn Arguello RN documented in this encounter [facility] 12-12-2022 Note Discharge Instructions Thank you for allowing [facility] to assist you with your healthcare needs. The following is important discharge information regarding your hospital visit. Diagnosis from Today's Visit Back pain Hip pain-swelling What to Do Next Instructions from Your Care Team No qualifying data available. Post Acute Orders No qualifying data available. You Need to Schedule the Following Appointments Follow Up with DOREEN OLIVER When Within 2-4 days Where: [address] [place] [phone] Allergies Bee Stings Depakote (Rash) Dilantin (Rash) Ditropan (Throat Swelling) Latex (Swelling) influenza virus vaccine, inactivated (Throat Swelling, Rash) meloxicam pravastatin tetracycline traMADol Medications Please ask your primary doctor or pharmacist before taking any other medication not listed, including over the counter drugs, herbal medications, vitamins and or supplements as they may interact with your home medications. What How Much When Why Instructions Last Dose New cyclobenzaprine (cyclobenzaprine 10 mg oral tablet) 1 tab(s) by mouth Three (3) times a day Duration: 5 Days Printed Prescription Unchanged acetaminophen (Tylenol Extra Strength 500 mg oral tablet) 2 tab(s) by mouth Four (4) times a day as needed for as needed for pain Unchanged albuterol (Ventolin HFA MDI (90 mcg/ inh) inhalation aerosol) 2 puff(s) by inhalation Every 4 hours as needed for as needed for wheezing Unchanged ARIPiprazole (ARIPiprazole 5 mg oral tablet) 1 tab(s) by mouth Daily at bedtime Unchanged aspirin 81 Milligram by mouth Twice daily with meals Duration: 30 Days Take 81 mg aspirin twice daily with food for 4 weeks postoperatively for DVT prophylaxis. Unchanged benzonatate (benzonatate 100 mg oral capsule) 2 cap by mouth Once a day (in the morning) Unchanged budesonide-formoterol (Symbicort 160 mcg-4.5 mcg/ inh Inhaler) 2 puff(s) by inhalation Two (2) times a day as needed for Shortness of breath or wheezing Unchanged cholecalciferol (Vitamin D3) 50 Microgram by mouth Daily at bedtime Unchanged diazePAM (diazePAM 5 mg oral tablet) 1 tab(s) by mouth Once a day as needed for as needed for anxiety Unchanged diclofenac (diclofenac sodium 75 mg oral delayed release tablet) 1 tab(s) by mouth Two (2) times a day Unchanged dicyclomine (dicyclomine 20 mg oral tablet) 2 tab(s) by mouth Two (2) times a day Unchanged ferrous sulfate (ferrous sulfate 325 mg (65 mg elemental iron) oral tablet) 1 tab(s) by mouth Two (2) times a day Anemia Unchanged folic acid (folic acid 1 mg oral tablet) 1 tab(s) by mouth Once a day Anemia Unchanged gabapentin (gabapentin 300 mg oral capsule) 1 cap by mouth Three (3) times a day Unchanged levothyroxine (levothyroxine 88 mcg (0.088 mg) oral tablet) 1 tab(s) by mouth Daily at bedtime Unchanged lysine (lysine 500 mg oral tablet) 2 tab(s) by mouth Every day as needed for as needed Unchanged methocarbamol (methocarbamol 500 mg oral tablet) 1 tab(s) by mouth Three (3) times a day Duration: 10 Days Unchanged montelukast (montelukast 10 mg oral tablet) 1 tab(s) by mouth Daily at bedtime Unchanged omeprazole (omeprazole 40 mg oral delayed release capsule) 1 cap by mouth Two (2) times a day Unchanged potassium chloride (potassium chloride 20 mEq oral tablet, extended release) 1 tab(s) by mouth Two (2) times a day Take with food. Unchanged prazosin (prazosin 1 mg oral capsule) 1 cap by mouth Daily at bedtime Unchanged sertraline (Zoloft 50 mg oral tablet) 1 tab(s) by mouth Daily at bedtime Unchanged tiotropium (Spiriva Respimat 60 ACT 2.5 mcg/ inh inhalation aerosol) 2 puff(s) by inhalation Once a day as needed for Shortness of breath or wheezing Unchanged traZODone (traZODone 150 mg oral tablet) 3 tab(s) by mouth Daily at bedtime Please take this list to your next doctor s visit. Bring all medications you take, including over the counter medications, herbals and other supplements with you to your doctor s visit. Patients and families are reminded to discard old lists and to update any records with all medication providers or retail pharmacies. Education Materials Hip Strain You have a strain of the muscles around the hip joint. A muscle strain is a stretching or tearing of muscle fibers. This causes pain, especially when you move that muscle. There may also be some swelling and bruising. Home care Stay off the injured leg as much as possible until you can walk on it without pain. If you have a lot of pain with walking, crutches or a walker may be prescribed. These can be rented or purchased at many pharmacies and surgical or orthopedic supply stores. Follow your healthcare provider's advice about when to start putting weight on that leg. Apply an ice pack over the injured area for 15 to 20 minutes every 3 to 6 hours. Do this for the first 24 to 48 hours. You can make an ice pack by filling a plastic bag that seals at the top with ice cubes and then wrapping it with a thin towel. Be careful not to injure your skin with the ice treatments. Ice should never be applied directly to skin. Continue the use of ice packs for relief of pain and swelling as needed. After 48 hours, apply heat (warm shower or warm bath) for 15 to 20 minutes several times a day, or alternate ice and heat. You may use busx-ohp-ibuqqzs pain medicine to control pain, unless another pain medicine was prescribed. If you have chronic liver or kidney disease or ever had a stomach ulcer or gastrointestinal bleeding, talk with your healthcare provider before using these medicines. If you play sports, you may resume these activities when you are able to hop and run on the injured leg without pain. Follow-up care Follow up with your healthcare provider, or as advised. If your symptoms don't start to get better after a week, more tests may be needed. If X-rays were taken, you will be told of any new findings that may affect your care. When to seek medical advice Call your healthcare provider right away if any of these occur: Increased swelling or bruising Increased pain Losing the ability to put weight on the injured side [phone] [employer]. [address] [place] [address]. All rights reserved. This information is not intended as a substitute for professional medical care. Always follow your healthcare professional's instructions. After Total Hip Replacement: Recovering at Home Whether you re recovering at home or in a rehabilitation facility, you need to protect your new hip. Sit and move the way you were taught in the hospital. Be sure to see your surgeon for scheduled follow-up visits, and return to activity slowly. A total hip replacement is major surgery, so don t be surprised if it takes a few months before you feel really good. See your surgeon Post-op visits allow your surgeon to make sure your hip is healing well. Stitches or stephenie are often taken out about 2 weeks after surgery. Call 911 Call 911 right away if you have any of the following: Chest pain Shortness of breath Dizziness or confusion When to call your healthcare provider Call your surgeon or other healthcare provider right away if you have any of the following: Hip pain gets worse Pain or swelling in your calf or leg not related to your incision Tenderness or redness in your calf Fever of 100.4 F (38 C) or higher, or as directed by your healthcare provider Shaking chills Swelling or redness at the incision site gets worse Fluid draining from the incision Returning to activity Practice walking daily. Try to do more each week. Start by getting your own glass of water. If the weather is good, walk to the corner to mail a letter. Keep at it that s the main thing. Sitting and dressing To protect your new hip, an occupational therapist or physical therapist will teach you safer ways of doing daily tasks. Use the following tips when sitting, dressing, or using stairs. To sit, back up until the edge of the chair touches your leg. Then, using the armrests to support your weight, lower yourself into the seat. Always keep your operated leg out in front. To pull on socks and shoes, use a long-handled device, such as a grasper or hook. Try this with slip-on shoes first. To wash your feet and legs, use a long-handled sponge and a shower hose. To use stairs, step up first with your good leg. Then bring your operated leg up to meet it. When going down, step down first with your operated leg. Returning to sex After the incision heals and you regain some hip movement, you may be ready to have sex. Ask your surgeon or the office nurse about when it is safe to start having sex, and what positions are safe. Maintaining your new joint An infection in your body could harm the new joint. Talk with your surgeon before scheduling medical or dental procedures. You may need to take antibiotics to prevent infection, even years after your surgery. To check joint stability over time, you may have X-rays every year or two. 1085-1403 [employer]. [address] [place] [address]. All rights reserved. This information is not intended as a substitute for professional medical care. Always follow your healthcare professional's instructions. Additional Information VACCINATE! IT SAVES LIVES! Members of the community who have not yet received the COVID-19 vaccine and would like to receive it can visit one of [facility] vaccine clinics. There are many vaccine clinic locations within the [facility]. For locations and available times, please visit [email or web address]. [email or web address] It is important to note that some COVID mobile vaccine clinics are held outdoors and may be canceled in rainy or stormy conditions. To learn more about pediatric vaccinations (ages 5-11), we invite you to visit the [facility] webpage. https://[email or web address].org/p [email or web address]-Hetyi-Kufvyozbjem-Freq whscdq-[email or web address]-Ogroruckq.html To learn more about the COVID-19 vaccine, we invite you to visit the CDC website for a list of frequently asked questions. https://www.cdc.gov/coronavirus/ 2019-ncov/vaccines/faq.html [facility] [employer] Patient Portal Access Instructions: Stay connected with your healthcare team and access your personal medical information anytime with the [facility] Patient Portal. If you would like a full copy of your medical records please contact the [facility] Medical Records Department Saturday through Saturday between 8a.m. and 4:30p.m. Please follow the directions below to access the portal: 1.Access the email account you provided upon registration to the [facility].2.Look for an invitation email from [facility].3.Open the email and access the invitation link: Accept Invitation to [facility]4.Fill in the required angelo to create your account. Sign into www.Prêt [email or web address]'Union with your username and password that you created in the above steps to stay up to date. You can then view a summary of results, a summary of your visits, and the ability to download your summaries to your computer or send the information securely to a physician. Remember that your healthcare information is confidential, so carefully consider who you will allow to register on the [facility] Patient Portal for access to your information. You can also access the [facility] Patient Portal on the [employer]ya. Simply click on Health Records under Health Data and then click on the Devtoo logo. HOW TO SAFELY DISPOSE OF PRESCRIPTION MEDICATIONS Please use one of the following methods to safely dispose of your unused medications. 1.Use a drug disposal kit: the drug disposal pouch allows you to safely discard your old and unused drugs. Ask your nurse to give you one when you are discharged.2.Visit a local take-back location: Many local pharmacies and police departments have programs that collect old and unwanted prescription drugs. Call your local pharmacy or go to http://bit.ly/0Y6Qy4r to find one close to you.3.Make use of household items: Use cat litter or old coffee grounds to dispose medications if other options are not available. Mix your drugs with these household products, seal them in an airtight container and throw it into the garbage. Call [facility]: [phone] to be sure your drugs can be disposed of in this way. Some medicines may require a different approach.4.Never flush your medications down the toilet. IF YOU HAVE BEEN PRESCRIBED AN OPIOIDS FOR PAIN If you have been prescribed an opioid (such as hydrocodone, oxycodone or morphine), it is critical to understand the possible side effects and risks of opioid pain medications. Even when taken as directed, opioids can have several side effects including: Tolerance, meaning you might need to take more of a medication for the same pain relief. Nausea, vomiting and/or constipation. Sleepiness, dizziness, dry mouth, confusion, depression or itching. Physical dependence, meaning you have withdrawal symptoms when a medication is stopped ? this can develop within a few days. KNOW YOUR RESPONSIBILITIES It is important to know exactly how much and how often to take the opioid pain medications you are prescribed. Never take opioids in higher amounts or more often than prescribed. Do not combine opioids with alcohol or other drugs that cause drowsiness, such as benzodiazepines, also known as benzos, including diazepam and alprazolam, muscle relaxants or sleep aids. Never sell or share prescription opioids. This is illegal. Store opioids in a secure place and out of reach of others (including children, family, friends and visitors). The last page(s) of this document has been signed and retained as a CHART COPY Signatures Patient Education Materials Hip Strain After Total Hip Replacement: Recovering at Home Medication Leaflets My discharge plan and instructions have been reviewed and explained to me and I,LEA GOMEZ understand my current condition and have read and understand these discharge instructions. I have received a written copy of the plan/instructions. If I have questions, I am aware that I should contact my doctor. 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 Attempted to contact Sri for fax number with no answer after holding for 4 minutes and unable to hold any longer. Order placed, once we get fax number then please send order. Thanks! Patient is requesting an order for a shower chair to be faxed to [facility]. Patient to call back with fax number. Shira Cain LPN documented in this encounter [facility] 12-04-2022 Note . MICRO - Microbiology PROCEDURE: Fungal Culture with Stain if Ind [*1] SOURCE: Tissue BODY SITE: Hip R COLLECTED DATE/TIME: 10/30/2022 11:58 EST RECEIVED DATE/TIME: 10/30/2022 21:24 EST START DATE/TIME: 10/30/2022 21:24 EST FREE TEXT SOURCE: ACETABULAR MEMBRANE #2 FINAL REPORTS Final Report [] Verified Date/Time/Personnel: 12/04/2022 08:07 EDT No fungus isolated in 4 weeks. PRELIMINARY REPORTS Preliminary Report [] Verified Date/Time/Personnel: 11/02/2022 10:41 EST No fungus isolated to date. Final report to follow. STAINS FUNSM [] Verified Date/Time/Personnel: 10/31/2022 13:06 EST No fungal elements observed by calcofluor white stain. Performing Locations *1: This test was performed at: [facility], [address] [place] [address], [id number] , [facility] ([place] 12-04-2022 Note . MICRO - Microbiology PROCEDURE: Fungal Culture with Stain if Ind [*1] SOURCE: Tissue BODY SITE: Hip R COLLECTED DATE/TIME: 10/30/2022 11:53 EST RECEIVED DATE/TIME: 10/30/2022 21:22 EST START DATE/TIME: 10/30/2022 21:22 EST FREE TEXT SOURCE: 2. ACETABULAR MEMBRANE #1 FINAL REPORTS Final Report [] Verified Date/Time/Personnel: 12/04/2022 08:07 EDT No fungus isolated in 4 weeks. PRELIMINARY REPORTS Preliminary Report [] Verified Date/Time/Personnel: 11/02/2022 10:41 EST No fungus isolated to date. Final report to follow. STAINS FUNSM [] Verified Date/Time/Personnel: 10/31/2022 13:06 EST No fungal elements observed by calcofluor white stain. Performing Locations *1: This test was performed at: [address], [address] , [facility] ([place] 12-04-2022 Note . MICRO - Microbiology PROCEDURE: Fungal Culture with Stain if Ind [*1] SOURCE: Tissue BODY SITE: Hip R COLLECTED DATE/TIME: 10/30/2022 11:53 EST RECEIVED DATE/TIME: 10/30/2022 21:23 EST START DATE/TIME: 10/30/2022 21:23 EST FREE TEXT SOURCE: 1. INFERIOR SYNOVIUM FINAL REPORTS Final Report [] Verified Date/Time/Personnel: 12/04/2022 08:07 EDT No fungus isolated in 4 weeks. PRELIMINARY REPORTS Preliminary Report [] Verified Date/Time/Personnel: 11/02/2022 10:41 EST No fungus isolated to date. Final report to follow. STAINS FUNSM [] Verified Date/Time/Personnel: 10/31/2022 13:06 EST No fungal elements observed by calcofluor white stain. Performing Locations *1: This test was performed at: [address], [address] , [facility] ([place] 11-27-2022 Miscellaneous Notes Patient notified of results, verbalizes understanding of instructions. Since iron levels are still low despite the multivitamin I would recommend she take an extra once daily iron supplement if feeling symptoms of increased fatigue, cold/cold intolerance, ect. If not symptomatic we can monitor, repeat labs at follow up. Currently taking vitamins w/folic acid & iron plus OTC Vitamin C supplement. Please review. Patient uses [facility]. Shira Cain LPN Please call patient and let her know labs are back and show low iron levels, recommend iron supplement daily along with vitamin C to help with absorption. Would she like this sent to the pharmacy or to pick this up OTC? documented in this encounter [facility] 11-16-2022 Miscellaneous Notes Referral with facesheet faxed to [facility] [phone]. Lelia Marie MA Please send referral to [facility] and let her know once sent. Thanks! Patient asking pcp to send referral for Cognitive Therapy to [facility] in [place]. Reports she has hx of 2 strokes and her short term memory is bad. documented in this encounter [facility] 11-12-2022 Miscellaneous Notes PATIENT NOTIFIED OF SAME. I placed orders for iron studies and folate/B12 and sodium to be checked along with ifob. Repeat labs should be done in about 1 week. Spoke with patient and she denies having any bleeding issues. She is taking a vitamin with iron and folic acid 1 tablet daily. Patient recently had labs done ( I think they were intended for pre-op but have been done post-op). Overall stable, her hgb did drop slightly, pre-op labs showed hgb of 9.9 and most recent labs have a hgb of 9.6, did she have or is she having any issues with bleeding from surgery? Any signs of any other blood loss? IS she taking any type of iron supplements? documented in this encounter [facility] 11-06-2022 Note . MICRO - Microbiology PROCEDURE: Culture Tissue [*1] SOURCE: Tissue BODY SITE: Hip R COLLECTED DATE/TIME: 10/30/2022 11:58 EST RECEIVED DATE/TIME: 10/30/2022 21:24 EST START DATE/TIME: 10/30/2022 21:24 EST FREE TEXT SOURCE: ACETABULAR MEMBRANE #2 FINAL REPORTS Final Report [] Verified Date/Time/Personnel: 11/06/2022 07:21 EST No growth at 7 days. PRELIMINARY REPORTS Preliminary Report [] Verified Date/Time/Personnel: 10/31/2022 09:52 EST No growth to date STAINS GS [] Verified Date/Time/Personnel: 10/31/2022 00:19 EST 1+ Polymorphonuclear cells Rare Mononuclear cells No organisms seen. Performing Locations *1: This test was performed at: [address], [facility]- , [facility] ([place] 11-06-2022 Note . MICRO - Microbiology PROCEDURE: Culture Tissue [*1] SOURCE: Tissue BODY SITE: Hip R COLLECTED DATE/TIME: 10/30/2022 11:53 EST RECEIVED DATE/TIME: 10/30/2022 21:23 EST START DATE/TIME: 10/30/2022 21:23 EST FREE TEXT SOURCE: 1. INFERIOR SYNOVIUM FINAL REPORTS Final Report [] Verified Date/Time/Personnel: 11/06/2022 07:20 EST No growth at 7 days. PRELIMINARY REPORTS Preliminary Report [] Verified Date/Time/Personnel: 10/31/2022 09:51 EST No growth to date STAINS GS [] Verified Date/Time/Personnel: 10/31/2022 00:07 EST Rare Epithelial cells 2+ Mononuclear cells No organisms seen. Performing Locations *1: This test was performed at: [address], [facility]- , [facility] ([place] 11-06-2022 Note . MICRO - Microbiology PROCEDURE: Culture Tissue [*1] SOURCE: Tissue BODY SITE: Hip R COLLECTED DATE/TIME: 10/30/2022 11:53 EST RECEIVED DATE/TIME: 10/30/2022 21:22 EST START DATE/TIME: 10/30/2022 21:22 EST FREE TEXT SOURCE: 2. ACETABULAR MEMBRANE #1 FINAL REPORTS Final Report [] Verified Date/Time/Personnel: 11/06/2022 07:20 EST No growth at 7 days. PRELIMINARY REPORTS Preliminary Report [] Verified Date/Time/Personnel: 10/31/2022 09:50 EST No growth to date STAINS GS [] Verified Date/Time/Personnel: 10/31/2022 00:20 EST 1+ Mononuclear cells No organisms seen. Performing Locations *1: This test was performed at: [facility], [address] [place] [address], [id number]- , [facility] ([place] 11-02-2022 Miscellaneous Notes Called and left a detailed voicemail notifying Shannan [facility] of providers message. Hospital phone number was left in case she had any questions. Karon Davis RN Yes, please let them know that we will follow, thanks! Shannan with [facility] called and reports Pt had a R hip repair done with Dr Smart. She states Dr Smart will follow her for any ortho related orders. She is asking if provider will follow Pt for any non-ortho related PT orders such as medications. She states her phone line is confidential and a VM can be left. documented in this encounter [facility] 11-01-2022 Note Discharge Instructions Thank you for allowing [facility] to assist you with your healthcare needs. The following is important discharge information regarding your hospital visit. Your Care Team Dr. Smart Your Diagnosis Osteoarthritis COPD (chronic obstructive pulmonary disease) Seizure disorder Hypothyroidism GERD (gastroesophageal reflux disease) Anemia S/P total right hip arthroplasty What to do next Follow Up Appointments Follow Up with DOREEN OLIVER When 11/14/2022 11:00 AM EDT Why: Follow-up as scheduled Where: [address] [place] [phone] Follow Up with SANTO BETTS When 11/12/2022 10:45 AM EDT Where: [facility] [address] [place] [address]- Business (1) The Following Activity and Diet Have Been Ordered for You Activity: Weight bearing as tolerated. Diet: No changes were made to your diet. The Following Equipment Has Been Ordered for You No qualifying data available. The Following Treatments Have Been Ordered for You Discharge Labs Discharge Outpatient Labwork - Ordered -- CBC, Post-op Anemia, follow-up within: 2 weeks, Results Notify to: DOREEN OLIVER, 11/01/22 8:36:00 EST Discharge Radiology No qualifying data available. Other Therapies No qualifying data available. Post Acute Orders No qualifying data available. Someone Will Contact You Regarding These Home Health Referrals Consult Home Health - PT (Home Health PT Consult) - Ordered -- 11/01/22 8:37:00 EST, Home Therapy Order: PT Eval & Treat, Reason: Post total hip, Home Therapy Instruction: with Walker, Revision right total hip arthroplasty anterior approach. Weightbearing as tolerated with walker Allergies Bee Stings Depakote (Rash) Dilantin (Rash) Ditropan (Throat Swelling) Latex (Swelling) influenza virus vaccine, inactivated (Throat Swelling, Rash) meloxicam pravastatin tetracycline traMADol Medications Please ask your primary doctor or pharmacist before taking any other medication not listed, including over the counter drugs, herbal medications, vitamins and or supplements as they may interact with your home medications. What How Much When Why Instructions Last Dose New doxycycline (doxycycline hyclate 100 mg oral capsule) 1 cap by mouth Every 12 hours Duration: 12 Days Pickup at [facility] 181111/01/22 at 0806 am New ferrous sulfate (ferrous sulfate 325 mg (65 mg elemental iron) oral tablet) 1 tab(s) by mouth Two (2) times a day Anemia 11/01/22 at 1115am New folic acid (folic acid 1 mg oral tablet) 1 tab(s) by mouth Once a day Anemia 11/01/22 at 0806am New oxyCODONE (oxyCODONE 5 mg oral tablet ( IMMEDIATE release )) See instructions S/P total right hip arthroplasty 1-2 tab(s) Oral q4h Pickup at [facility] 181111/01/22 at 1158am Changed acetaminophen (Tylenol Extra Strength 500 mg oral tablet) 2 tab(s) by mouth Four (4) times a day as needed for as needed for pain 11/01/22 at 0806am Changed aspirin 81 Milligram by mouth Twice daily with meals Duration: 30 Days Take 81 mg aspirin twice daily with food for 4 weeks postoperatively for DVT prophylaxis. 11/01/22 at 0806am Changed benzonatate (benzonatate 100 mg oral capsule) 2 cap by mouth Once a day (in the morning) none today Changed budesonide-formoterol (Symbicort 160 mcg-4.5 mcg/ inh Inhaler) 2 puff(s) by inhalation Two (2) times a day as needed for Shortness of breath or wheezing none today Changed diazePAM (diazePAM 5 mg oral tablet) 1 tab(s) by mouth Once a day as needed for as needed for anxiety none today Changed dicyclomine (dicyclomine 20 mg oral tablet) 2 tab(s) by mouth Two (2) times a day 11/01/22 at 0806am Changed lysine (lysine 500 mg oral tablet) 2 tab(s) by mouth Every day as needed for as needed none Changed montelukast (montelukast 10 mg oral tablet) 1 tab(s) by mouth Daily at bedtime none today Changed sertraline (Zoloft 50 mg oral tablet) 1 tab(s) by mouth Daily at bedtime none today Changed tiotropium (Spiriva Respimat 60 ACT 2.5 mcg/ inh inhalation aerosol) 2 puff(s) by inhalation Once a day as needed for Shortness of breath or wheezing none today Changed traZODone (traZODone 150 mg oral tablet) 3 tab(s) by mouth Daily at bedtime none today Unchanged albuterol (Ventolin HFA MDI (90 mcg/ inh) inhalation aerosol) 2 puff(s) by inhalation Every 4 hours as needed for as needed for wheezing none today Unchanged ARIPiprazole (ARIPiprazole 5 mg oral tablet) 1 tab(s) by mouth Daily at bedtime none today Unchanged cholecalciferol (Vitamin D3) 50 Microgram by mouth Daily at bedtime none today Unchanged diclofenac (diclofenac sodium 75 mg oral delayed release tablet) 1 tab(s) by mouth Two (2) times a day none today Unchanged gabapentin (gabapentin 300 mg oral capsule) 1 cap by mouth Three (3) times a day 11/01/22 at 0806am Unchanged levothyroxine (levothyroxine 88 mcg (0.088 mg) oral tablet) 1 tab(s) by mouth Daily at bedtime none today Unchanged methocarbamol (methocarbamol 500 mg oral tablet) 1 tab(s) by mouth Three (3) times a day Duration: 10 Days none today Unchanged omeprazole (omeprazole 40 mg oral delayed release capsule) 1 cap by mouth Two (2) times a day 11/01/22 at 0806am Unchanged potassium chloride (potassium chloride 20 mEq oral tablet, extended release) 1 tab(s) by mouth Two (2) times a day Take with food. 11/01/22 at 0806am Unchanged prazosin (prazosin 1 mg oral capsule) 1 cap by mouth Daily at bedtime none today Pharmacy Information [facility]: [address] [place] [id number] [phone] What How Much When Comments Stop Taking acetaminophen-hydrocodone (acetaminophen-hydrocodone 325 mg-5 mg oral tablet) 1 tab(s) by mouth Every 6 hours as needed for for pain May take 1-2 tablets / dose Please take this list to your next doctor s visit. Bring all medications you take, including over the counter medications, herbals and other supplements with you to your doctor s visit. Patients and families are reminded to discard old lists and to update any records with all medication providers or retail pharmacies. Education Materials [facility] Post-operative Instructions PLEASE FOLLOW [facility] POST-OP INSTRUCTIONS GIVEN WATCH FOR SIGNS OF INFECTION: call the office ([phone]) if experencing any of the following: (Usually appears 36-48 hours after surgery) Increased temperature (101 degrees Fahrenheit or higher) Redness or swelling Increased uncontrolled pain Foul odor or drainage Calf discomfort Significant swelling Or if having any chest pain, shortness of breath, or difficulty breathing or swallowing call the office or go the nearest Emergency Room. If you have any questions, please call your doctor at the number listed on your follow up instructions. Form: 338A (11157) R: 01/06 Additional Information VACCINATE! IT SAVES LIVES! Members of the community who have not yet received the COVID-19 vaccine and would like to receive it can visit one of [facility] vaccine clinics. There are many vaccine clinic locations within the [facility]. For locations and available times, please visit [email or web address] It is important to note that some COVID mobile vaccine clinics are held outdoors and may be canceled in rainy or stormy conditions. To learn more about pediatric vaccinations (ages 5-11), we invite you to visit the [facility] webpage. https://www.[facility].org/p ages/1635-Suebz-Wkqcgzlakll-Freq xbtqru-[email or web address].html To learn more about the COVID-19 vaccine, we invite you to visit the CDC website for a list of frequently asked questions. https://www.cdc.gov/coronavirus/ 2019-ncov/vaccines/faq.html [facility] Patient Portal Access Instructions: Stay connected with your healthcare team and access your personal medical information anytime with the [facility] Patient Portal.If you would like a full copy of your medical records, please contact the [facility] Medical Records Department, Saturday through Saturday between 8a.m. and 4:30p.m. Please follow the directions below to access the portal: 1.Access the email account you provided upon registration to the [facility].2.Look for an invitation email from [facility].3.Open the email and access the invitation link: Accept Invitation to [facility]4.Fill in the required angelo to create your account. Sign into [email or web address].Prêt [email or web address][employer]Union with your username and password that you created in the above steps to stay up to date. You can then view a summary of results, a summary of your visits, and the ability to download your summaries to your computer or send the information securely to a physician. Remember that your healthcare information is confidential, so carefully consider who you will allow to register on the [facility] Patient Portal for access to your information. You can also access the [employer] Patient Portal on the [employer]. Simply click on Health Records under Health Data and then click on the Devtoo logo. HOW TO SAFELY DISPOSE OF PRESCRIPTION MEDICATIONS Please use one of the following methods to safely dispose of your unused medications. 1.Use a drug disposal kit: the drug disposal pouch allows you to safely discard your old and unused drugs. Ask your nurse to give you one when you are discharged.2.Visit a local take-back location: Many local pharmacies and police departments have programs that collect old and unwanted prescription drugs. Call your local pharmacy or go to http://bit.[employer]/9B6Ur7o to find one close to you.3.Make use of household items: Use cat litter or old coffee grounds to dispose medications if other options are not available. Mix your drugs with these household products, seal them in an airtight container and throw it into the garbage. Call [facility]: [phone] to be sure your drugs can be disposed of in this way. Some medicines may require a different approach.4.Never flush your medications down the toilet. IF YOU HAVE BEEN PRESCRIBED AN OPIOID FOR PAIN If you have been prescribed an opioid (such as hydrocodone, oxycodone or morphine), it is critical to understand the possible side effects and risks of opioid pain medications. Even when taken as directed, opioids can have several side effects including: Tolerance, meaning you might need to take more of a medication for the same pain relief. Nausea, vomiting and/or constipation. Sleepiness, dizziness, dry mouth, confusion, depression or itching. Physical dependence, meaning you have withdrawal symptoms when a medication is stopped, can develop within a few days. KNOW YOUR RESPONSIBILITIES It is important to know exactly how much and how often to take the opioid pain medications you are prescribed. Never take opioids in higher amounts or more often than prescribed. Do not combine opioids with alcohol or other drugs that cause drowsiness, such as benzodiazepines, also known as benzos, including diazepam and alprazolam, muscle relaxants or sleep aids. Never sell or share prescription opioids. This is illegal. Store opioids in a secure place and out of reach of others (including children, family, friends and visitors). The last page of this document has been signed and retained as a CHART COPY. Signatures Patient Education Materials [address] [place] [address] Post-op Instruction 04/2017 ([id number]) Medication Leaflets My discharge plan and instructions have been reviewed and explained to me and IJASON MARISA C understand my current condition and have read and understand these discharge instructions. I have received a written copy of the plan/instructions. If I have questions, I am aware that I should contact my doctor. 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 Patient is postoperative day #2 for right hip prosthetic joint revision. Patient is doing well physically however she has anemia and hemoglobin dropped from 10.6-8.7. Today her hemoglobin is 8.9. She has been hemodynamically stable and denies any dizziness or lightheadedness. No dyspnea. She has been adequately oxygenating on room air. Objective Vitals and Measurements T: 36.6 C (Oral) TMIN: 36.3 C (Oral) TMAX: 36.8 C (Oral) HR: 68(Monitored) RR: 18 BP: 131/66 SpO2: 99% Intake and Output 7AM Yesterday to 7AM Today Intake and Output (Last 24 hours) Intake Oral Intake 940.00 Supplement Intake 240.00 Output Stool Count 1.00 Urine Count 5.00 Total Summary Total Intake 1180.00 Total Output 0.00 Fluid Balance 1180.00 Physical Exam GEN: Appears chronically ill EYES: No conjunctival erythema, drainage. EOMI EARS: Hearing grossly intact. NOSE: No nasal discharge. THROAT: Oral cavity and pharynx pink and moist. CHEST: Normal S1 and S2. Rhythm is regular. Clear to auscultation, without rales, rhonchi, wheezing. ABD: Positive bowel sounds x 4 quads. Soft, nondistended, nontender. EXT: No significant deformity or joint abnormality. No edema. Peripheral pulses intact. NEURO: Sensation grossly intact SKIN: Surgical dressing in place PSYCH: The mental examination revealed the patient was alert and oriented x 4 Weight Dosing Weight: 76.5 kg (10/30/22) Dosing Weight: 79 kg (10/30/22) Medications Medications (34) Active Scheduled: (23) acetaminophen 500 mg Tablet 1,000 mg 2 tab(s), Oral, q8h albuterol 0.083% Soln UD (2.5mg/3 mL) 2.5 mg 3 mL, Inhalation, q6hRT ARIPiprazole 5 mg tablet 5 mg 1 tab(s), Oral, qHS aspirin 81 mg Chewable 81 mg 1 tab(s), Oral, BIDM budesonide 0.25 mg/2 mL Susp UD 0.25 mg 2 mL, Inhalation, BIDRT ceFAZolin 2 gram(s), IV Piggyback, PREOP pharm dexamethasone 10 mg/mL (1mL) SDV 10 mg 1 mL, IV Push, AsDirected dicyclomine 10 mg capsule 40 mg 4 cap(s), Oral, BID docusate sodium 100 mg Capsule 100 mg 1 cap(s), Oral, BID docusate-senna (Senokot S) 50 mg-8.6 mg Tablet 2 tab(s), Oral, BID doxycycline hyclate 100 mg Capsule 100 mg 1 cap(s), Oral, q12h famotidine 20 mg tablet 20 mg 1 tab(s), Oral, qDay ferrous sulfate 325 mg Tablet 325 mg 1 tab(s), Oral, BID folic acid 1 mg tablet 1 mg 1 tab(s), Oral, qDay gabapentin 300 mg Capsule 300 mg 1 cap(s), Oral, TID levothyroxine 88 mcg tablet 88 mcg 1 tab(s), Oral, qHS magnesium hydroxide 8% Suspension 30 mL UD 30 mL, Oral, Daily montelukast 10 mg Tablet 10 mg 1 tab(s), Oral, qHS multivitamin (Myadec) with minerals Therapeutic Multiple Vitamins with Minerals Tablet 1 tab(s), Oral, qDayM potassium chloride 20 mEq ER tablet 20 mEq 1 tab(s), Oral, BID prazosin 1 mg Capsule 1 mg 1 cap(s), Oral, qHS sertraline 50 mg tablet 50 mg 1 tab(s), Oral, qHS traZODONE 50 mg Tablet 450 mg 9 tab(s), Oral, qHS Continuous: (1) Lactated Ringers 1,000 mL 1,000 mL, Intravenous, 100 mL/hr PRN: (10) acetaminophen 325 mg Tablet 650 mg 2 tab(s), Oral, q4h diazepam 5 mg tablet 5 mg 1 tab(s), Oral, q8h diclofenac sodium 75 mg EC tablet 75 mg 1 tab(s), Oral, BID diphenhydramine 25 mg tablet 25 mg 1 tab(s), Oral, q6h diphenhyDRAMINE 50 mg/mL (1 mL) INJ 25 mg 0.5 mL, IV Push, q6h morphine 2 mg/mL 1 mL syringe 2 mg 1 mL, IV Push, q1h ondansetron 2 mg/ 1 mL 2 mL INJ 4 mg 2 mL, IV Push, q8h oxycodone 5 mg tablet (immediate release) 5 mg 1 tab(s), Oral, q4h oxycodone 5 mg tablet (immediate release) 10 mg 2 tab(s), Oral, q4h sodium biphosphate-sodium phosphate 19 gm-7 gm Enema 133 mL, Rectal, qDay Lab Results 11/01 07:33 WBC: 9.1 Hgb: 8.9 L Hct: 26.2 L Platelet: 238 Neutrophil %: 89.7 H 11/01 05:34 Glucose Level: 129 H Sodium Level: 136 Potassium Level: 5.7 H BUN: 21 H Creatinine Lvl (s): 0.80 10/31 05:26 WBC: 12.8 H Hgb: 8.7 L Hct: 26.4 L Platelet: 286 Neutrophil %: 91.3 H Glucose Level: 147 H Sodium Level: 136 Potassium Level: 5.5 H BUN: 16 Creatinine Lvl (s): 0.96 EKG No qualifying data available. Assessment/Plan 1. Osteoarthritis 2. COPD (chronic obstructive pulmonary disease) 3. Seizure disorder 4. Hypothyroidism 5. GERD (gastroesophageal reflux disease) Osteoarthritis POD #2 For revision of right total hip arthroplasty. Pain is well controlled. Management per primary team. COPD not in acute exacerbation. Patient is stable. Seizure disorder continue home medications. No active seizures. Hypotension resolved Anemia improving. Patient is being continued on ferrous sulfate and folic acid per primary team. She is asymptomatic and hemodynamically stable. No evidence of bleeding. Remainder of chronic conditions are stable. Patient is optimized for discharge from a medical perspective. DVT prophylaxis: SCDs Labs, diagnostics, and progress notes reviewed as noted in HPI Code Status: Full code Plan of care discussed with patient. All questions answered. Patient verbalizes understanding is agreeable to plan of care. Thank you for requesting our participation in the care of your patient. We will continue to follow during their hospitalization. This dictation was performed using voice recognition software and may include grammatical and/or spelling errors. Digitally Signed by SUJEY DE OLIVEIRA on 11/01/2022 12:50 PM [facility] 11-01-2022 Miscellaneous Notes A social service coordinator from [facility] called stating patient is discharging today after a hip replacement. I had initially scheduled her due to seeing that she was one of your patients, but I didn't realize that she is a patient of your new office! I cancelled the appointment, and tried to call the social service coordinator's line back, with no response. She needs scheduled with you for a [facility] at [place] office. Thanks. documented in this encounter [facility] 11-01-2022 Hospital Discharg e instructions Patient Education 11/01/2022 08:28:33 5 - [facility] Post-op Instruction 04/2017 ([id number]) [facility] Post-operative Instructions PLEASE FOLLOW [facility] POST-OP INSTRUCTIONS GIVEN WATCH FOR SIGNS OF INFECTION: call the office ([phone]) if experencing any of the following: (Usually appears 36-48 hours after surgery) Increased temperature (101 degrees Fahrenheit or higher) Redness or swelling Increased uncontrolled pain Foul odor or drainage Calf discomfort Significant swelling Or if having any chest pain, shortness of breath, or difficulty breathing or swallowing call the office or go the nearest Emergency Room. If you have any questions, please call your doctor at the number listed on your follow up instructions. Form: 338A ([id number]) R: 01/06 Follow Up Care 08/29/2022 13:50:59 With:DOREEN OLIVER Address: [address] [place] [id number] [phone] When:11/14/2022 11:00:00 Comments:Follow-up as scheduled With:SANTO BETTS Address: [facility] [address] [place] [id number] [id number] (1) When:11/12/2022 10:45:00 [facility] 11-01-2022 Note Date of Service November 01, 2022 Subjective The patient was sitting in bed upon examination. Patient denies any chest pain, shortness of breath, dizziness, lightheadedness, nausea or vomiting, or calf pain. No adverse overnight events. Pain has been controlled on medications. Patient states she feels better than yesterday. She has been participating with physical therapy. They are recommending outpatient physical therapy versus home health physical therapy. Patient denies any shortness of breath or calf pain. She has stable postoperative anemia. Denies any dizziness or lightheadedness. Plan will be for discharge home today with home health physical therapy. Objective Vitals and Measurements T: 36.6 C (Oral) TMIN: 36.3 C (Oral) TMAX: 36.8 C (Oral) HR: 68(Monitored) RR: 18 BP: 131/66 SpO2: 99% Intake and Output 7AM Yesterday to 7AM Today Intake and Output (Last 24 hours) Intake Oral Intake 440.00 Supplement Intake 240.00 Output Urine Count 7.00 Total Summary Total Intake 680.00 Total Output 0.00 Fluid Balance 680.00 Physical Exam Vital signs stable, afebrile SCDs and BALBIR hose are in place bilaterally Right hip is soft and supple Patient is able to plantarflex and dorsiflex actively Sensation is intact to saphenous, sural, superficial and deep peroneal, and tibial distribution Dressing is clean dry and intact Negative signs and symptoms of DVT, negative Homans bilaterally Weight Dosing Weight: 76.5 kg (10/30/22) Dosing Weight: 79 kg (10/30/22) Medications Medications (34) Active Scheduled: (23) acetaminophen 500 mg Tablet 1,000 mg 2 tab(s), Oral, q8h albuterol 0.083% Soln UD (2.5mg/3 mL) 2.5 mg 3 mL, Inhalation, q6hRT ARIPiprazole 5 mg tablet 5 mg 1 tab(s), Oral, qHS aspirin 81 mg Chewable 81 mg 1 tab(s), Oral, BIDM budesonide 0.25 mg/2 mL Susp UD 0.25 mg 2 mL, Inhalation, BIDRT ceFAZolin 2 gram(s), IV Piggyback, PREOP pharm dexamethasone 10 mg/mL (1mL) SDV 10 mg 1 mL, IV Push, AsDirected dicyclomine 10 mg capsule 40 mg 4 cap(s), Oral, BID docusate sodium 100 mg Capsule 100 mg 1 cap(s), Oral, BID docusate-senna (Senokot S) 50 mg-8.6 mg Tablet 2 tab(s), Oral, BID doxycycline hyclate 100 mg Capsule 100 mg 1 cap(s), Oral, q12h famotidine 20 mg tablet 20 mg 1 tab(s), Oral, qDay ferrous sulfate 325 mg Tablet 325 mg 1 tab(s), Oral, BID folic acid 1 mg tablet 1 mg 1 tab(s), Oral, qDay gabapentin 300 mg Capsule 300 mg 1 cap(s), Oral, TID levothyroxine 88 mcg tablet 88 mcg 1 tab(s), Oral, qHS magnesium hydroxide 8% Suspension 30 mL UD 30 mL, Oral, Daily montelukast 10 mg Tablet 10 mg 1 tab(s), Oral, qHS multivitamin (Myadec) with minerals Therapeutic Multiple Vitamins with Minerals Tablet 1 tab(s), Oral, qDayM potassium chloride 20 mEq ER tablet 20 mEq 1 tab(s), Oral, BID prazosin 1 mg Capsule 1 mg 1 cap(s), Oral, qHS sertraline 50 mg tablet 50 mg 1 tab(s), Oral, qHS traZODONE 50 mg Tablet 450 mg 9 tab(s), Oral, qHS Continuous: (1) Lactated Ringers 1,000 mL 1,000 mL, Intravenous, 100 mL/hr PRN: (10) acetaminophen 325 mg Tablet 650 mg 2 tab(s), Oral, q4h diazepam 5 mg tablet 5 mg 1 tab(s), Oral, q8h diclofenac sodium 75 mg EC tablet 75 mg 1 tab(s), Oral, BID diphenhydramine 25 mg tablet 25 mg 1 tab(s), Oral, q6h diphenhyDRAMINE 50 mg/mL (1 mL) INJ 25 mg 0.5 mL, IV Push, q6h morphine 2 mg/mL 1 mL syringe 2 mg 1 mL, IV Push, q1h ondansetron 2 mg/ 1 mL 2 mL INJ 4 mg 2 mL, IV Push, q8h oxycodone 5 mg tablet (immediate release) 5 mg 1 tab(s), Oral, q4h oxycodone 5 mg tablet (immediate release) 10 mg 2 tab(s), Oral, q4h sodium biphosphate-sodium phosphate 19 gm-7 gm Enema 133 mL, Rectal, qDay Lab Results 11/01 07:33 WBC: 9.1 Hgb: 8.9 L Hct: 26.2 L Platelet: 238 Neutrophil %: 89.7 H 03 05:34 Glucose Level: 129 H Sodium Level: 136 Potassium Level: 5.7 H BUN: 21 H Creatinine Lvl (s): 0.80 10/31 05:26 WBC: 12.8 H Hgb: 8.7 L Hct: 26.4 L Platelet: 286 Neutrophil %: 91.3 H Glucose Level: 147 H Sodium Level: 136 Potassium Level: 5.5 H BUN: 16 Creatinine Lvl (s): 0.96 EKG No qualifying data available. Assessment/Plan 1. Osteoarthritis 1. Status post right revision total hip arthroplasty anterior approach and right knee corticosteroid injection postop day #2 2. Continue pain medications: Tylenol and oxycodone. Patient is seen by pain management Dr. Christianson in which she takes Gepp chronically. I discussed with the patient not to combine Gepp and oxycodone. We will control pain medications during the first 2 weeks and after that she will go back to her pain management physician. 3. DVT prophylaxis: Take 81 mg aspirin twice daily with food for 4 weeks postoperatively for DVT prophylaxis. Patient denies past history of DVT or pulmonary embolism 4. Physical therapy: Weightbearing as tolerated with walker 5. H & H: 8.9/26.2, asymptomatic and vital signs stable. Postoperative acute on chronic anemia secondary to acute blood loss from surgery without intraoperative complications. Preoperatively patient's hemoglobin/hematocrit was 10.6/31.7 on October 15, 2022. At that time she was placed on folic acid and iron supplements. She reports not being on any medications prior to this. She does report in the past having some anemia. Case management is involved and will schedule 1 to 2-week postoperative follow-up with the primary care physician with repeat lab work. 6. Reactive leukocytosis: resolved currently 9.1, afebrile. Patient did receive Decadron intraoperatively 7. Continue antibiotics while following cultures: Cultures are without any growth. Patient will continue with doxycycline postoperatively for 2 weeks while following cultures. Discussed with the patient increase sensitivity with this medication to sunlight and she should take appropriate precautions. Also recommend she use probiotics while on antibiotics. She voiced understanding and agreement. 8. Encouraged incentive spirometry 9. Continue postoperative medical management per medicine 10. Disposition: Plan will be for discharge home today with home health physical therapy as long as patient is cleared medically. Patient overall has been stable. Her postoperative acute on chronic anemia has been stable today. She will continue with the ferrous sulfate and folic acid. Lab order for repeat CBC will be placed on chart and case management will schedule appointment for the primary care physician in 1 to 2 weeks. I discussed with the patient that they will continue to manage her anemia. We did reach out to pain management Dr. Christianson, they would like us to manage the postoperative pain medication for the first 2 weeks and then after that they will manage any further pain medications. I discussed this with the patient. Patient will follow-up per postop instructions. We will see her back in 2 weeks for x-rays on arrival of the right hip. She will continue with above medications. She would like her medications E scribed to [facility] in [facility]. Patient was instructed to contact her office with any concerns or complications postoperatively. Patient does deal with chronic diarrhea and I will hold off of sending her home with any stool softener. If she has any complications with regards to the chronic diarrhea she will contact her primary care physician. I have reviewed the [place] Automated Rx Reporting System (OARRS) report for this patient for refill pattern and other prescriber involvement as part of the appropriate surveillance for the provision of acute and chronic controlled medications. The report was requested and reviewed on the date of this entry, and was considered in the prescribing process This dictation was created using voice recognition software. Phonetic and/or grammatical errors may exist. 2. COPD (chronic obstructive pulmonary disease) 3. Seizure disorder 4. Hypothyroidism 5. GERD (gastroesophageal reflux disease) Digitally Signed by SANTO BETTS PA-C on 11/01/2022 08:28 AM [facility] 10-31-2022 Note Date of Service 10/31/2022 Chief Complaint Right hip revision, anemia Subjective Patient seen and evaluated this morning while resting in bed. She states that she is doing well this morning and her pain is well-controlled. Patient advised that her blood pressures have been low but she states that they typically run low even into the 70's and 80's. She denies any lightheadedness or dizziness. She denies any fever, chills, cough, shortness of breath, chest pain, abdominal pain, nausea or dysuria. Patient was seen by Santo Betts PA-C this morning and advised that she would need to stay another day as she still has cultures pending. This will give us a change to monitor her vital signs and blood counts. Patient denies any needs at this time. All questions answered. Objective Vitals and Measurements T: 36.3 C (Oral) TMIN: 36.3 C (Oral) TMAX: 36.6 C (Oral) HR: 89(Monitored) RR: 16 BP: 94/50 SpO2: 93% Intake and Output 7AM Yesterday to 7AM Today Intake and Output (Last 24 hours) Intake Administration Information 1095.00 Oral Intake 980.00 Supplement Intake 240.00 Output Urine Count 10.00 Total Summary Total Intake 2315.00 Total Output 0.00 Fluid Balance 2315.00 Physical Exam General: No acute distress. Patient is alert and appropriate. Skin: No rash. Skin is warm, dry and intact. HEENT: Head is normocephalic, atraumatic. Pupils are equal, round and reactive. Neck: Supple. No lymphadenopathy, thyromegaly. Lungs: Bilaterally clear but diminished without crepitation or wheeze. Unlabored. Heart: Heart is regular rhythm, S1, S2. No murmurs, gallops or rubs. Abdomen: Abdomen is soft, nontender. Bowels sounds present in all quadrants. Extremities: No clubbing, cyanosis, or edema. Peripheral pulses palpable. No calf tenderness. Right hip surgical dressing is dry and intact. Neurological: Patient is awake and alert to person, place and time. Following simple commands, moving all extremities. Weight Dosing Weight: 76.5 kg (10/30/22) Dosing Weight: 79 kg (10/30/22) Medications Medications (35) Active Scheduled: (23) acetaminophen 500 mg Tablet 1,000 mg 2 tab(s), Oral, q8h albuterol 0.083% Soln UD (2.5mg/3 mL) 2.5 mg 3 mL, Inhalation, q6hRT ARIPiprazole 5 mg tablet 5 mg 1 tab(s), Oral, qHS aspirin 81 mg Chewable 81 mg 1 tab(s), Oral, BIDM budesonide 0.25 mg/2 mL Susp UD 0.25 mg 2 mL, Inhalation, BIDRT ceFAZolin 2 gram(s), IV Piggyback, PREOP pharm dexamethasone 10 mg/mL (1mL) SDV 10 mg 1 mL, IV Push, AsDirected dicyclomine 10 mg capsule 40 mg 4 cap(s), Oral, BID docusate sodium 100 mg Capsule 100 mg 1 cap(s), Oral, BID docusate-senna (Senokot S) 50 mg-8.6 mg Tablet 2 tab(s), Oral, BID doxycycline hyclate 100 mg Capsule 100 mg 1 cap(s), Oral, q12h famotidine 20 mg tablet 20 mg 1 tab(s), Oral, qDay ferrous sulfate 325 mg Tablet 325 mg 1 tab(s), Oral, BID folic acid 1 mg tablet 1 mg 1 tab(s), Oral, qDay gabapentin 300 mg Capsule 300 mg 1 cap(s), Oral, TID levothyroxine 88 mcg tablet 88 mcg 1 tab(s), Oral, qHS magnesium hydroxide 8% Suspension 30 mL UD 30 mL, Oral, Daily montelukast 10 mg Tablet 10 mg 1 tab(s), Oral, qHS multivitamin (Myadec) with minerals Therapeutic Multiple Vitamins with Minerals Tablet 1 tab(s), Oral, qDayM potassium chloride 20 mEq ER tablet 20 mEq 1 tab(s), Oral, BID prazosin 1 mg Capsule 1 mg 1 cap(s), Oral, qHS sertraline 50 mg tablet 50 mg 1 tab(s), Oral, qHS traZODONE 50 mg Tablet 450 mg 9 tab(s), Oral, qHS Continuous: (1) Lactated Ringers 1,000 mL 1,000 mL, Intravenous, 100 mL/hr PRN: (11) acetaminophen 325 mg Tablet 650 mg 2 tab(s), Oral, q4h diazepam 5 mg tablet 5 mg 1 tab(s), Oral, q8h diclofenac sodium 75 mg EC tablet 75 mg 1 tab(s), Oral, BID diphenhydramine 25 mg tablet 25 mg 1 tab(s), Oral, q6h diphenhyDRAMINE 50 mg/mL (1 mL) INJ 25 mg 0.5 mL, IV Push, q6h ketorolac 30 mg/mL (1 mL) vial 15 mg 0.5 mL, IV Push, q6h morphine 2 mg/mL 1 mL syringe 2 mg 1 mL, IV Push, q1h ondansetron 2 mg/ 1 mL 2 mL INJ 4 mg 2 mL, IV Push, q8h oxycodone 5 mg tablet (immediate release) 5 mg 1 tab(s), Oral, q4h oxycodone 5 mg tablet (immediate release) 10 mg 2 tab(s), Oral, q4h sodium biphosphate-sodium phosphate 19 gm-7 gm Enema 133 mL, Rectal, qDay Lab Results 10/31 05:26 WBC: 12.8 H Hgb: 8.7 L Hct: 26.4 L Platelet: 286 Neutrophil %: 91.3 H Glucose Level: 147 H Sodium Level: 136 Potassium Level: 5.5 H BUN: 16 Creatinine Lvl (s): 0.96 Imaging Results and Diagnostics XR Hip Right w/Pelvis 4 Views Result Date: October 30, 2022 Verified By: MARÍA ELENA MARCOS DO CLINICAL STATEMENT: IMPRESSION: Total hip arthroplasty without evidence of hardware malfunction or complication. Expected postoperative findings.. I have personally reviewed the images of this examination and agree with the resident's findings and interpretation. EKG No qualifying data available. Assessment/Plan 1. Osteoarthritis Chronic, s/p right hip prosthetic joint revision *POD # 1. *Management per primary team. *Continue PRN pain medication and antiemetics. *Orthopedics keeping patient another night to follow cultures and CBC. 2. COPD (chronic obstructive pulmonary disease) Chronic, stable *Continue duoneb aerosols as needed for shortness of breath/wheezing. *May use oxygen at night as needed. 3. Seizure disorder Chronic, controlled *Continue current home medication. *Place patient in seizure precautions. 4. Hypothyroidism Chronic *Continue Synthroid at current dose. 5. GERD (gastroesophageal reflux disease) Chronic *Continue Pepcid daily. Hypotension - patient states her normal pressures run 70's-80's systolic. Continue to monitor per protocol. She denies any dizziness. Anemia - hemoglobin 10.6 on 10/15 - down to 8.6 this morning. Repeat CBC in the am. Ferrous sulfate ordered. DVT prophylaxis with aspirin 81 mg PO BID. Code status: Full Code. Labs, diagnostic test and progress notes reviewed as noted in HPI. Plan of care discussed with patient. All questions answered. Patient verbalizes understanding and is agreeable with plan of care. This case was discussed with collaborating physician, Dr. Aman Schwartz. Time Spent 35 minutes Digitally Signed by VICTORIANO KUHN on 10/31/2022 05:42 PM Digitally Signed by VICTORIANO KUHN on 10/31/2022 05:44 PM [facility] 10-31-2022 Note Date of Service October 31, 2022 Subjective The patient was sitting in bed upon examination. Patient denies any chest pain, shortness of breath, dizziness, lightheadedness, nausea or vomiting, or calf pain. No adverse overnight events. Pain has been controlled on medications. Patient has had some drop in O2 saturation overnight but does have chronic obstructive pulmonary disease. She reports that she does not require oxygen at home. She also preoperatively had anemia which she was started on folic acid and ferrous sulfate. She reports having anemia in the past but was on no medications until work-up from orthopedics finding this. She currently denies any dizziness or lightheadedness. Vitals have been stable. Objective Vitals and Measurements T: 36.6 C (Oral) TMIN: 35.7 C (Temporal Artery) TMAX: 36.6 C (Temporal Artery) HR: 65 RR: 16 BP: 98/62 SpO2: 93% HT: 170.2 cm WT: 76.5 kg BMI: 26.41 Intake and Output 7AM Yesterday to 7AM Today Intake and Output (Last 24 hours) Intake Administration Information 2595.00 Oral Intake 540.00 Supplement Intake 120.00 Output Intra-Op EBL 150.00 Urine Count 5.00 Total Summary Total Intake 3255.00 Total Output 150.00 Fluid Balance 3105.00 Physical Exam Vital signs stable, afebrile: Overnight patient did have some drop in O2 saturation. Last O2 saturation on room air was 93%. Overall blood pressures have been stable. SCDs and BALBIR hose are in place bilaterally Patient is able to plantarflex and dorsiflex actively Sensation is intact to saphenous, sural, superficial and deep peroneal, and tibial distribution Dressing is clean dry and intact Negative signs and symptoms of DVT, negative Homans bilaterally Weight Dosing Weight: 76.5 kg (10/30/22) Dosing Weight: 79 kg (10/30/22) Medications Medications (35) Active Scheduled: (24) acetaminophen 500 mg Tablet 1,000 mg 2 tab(s), Oral, q8h albuterol 0.083% Soln UD (2.5mg/3 mL) 2.5 mg 3 mL, Inhalation, q6hRT ARIPiprazole 5 mg tablet 5 mg 1 tab(s), Oral, qHS aspirin 81 mg Chewable 81 mg 1 tab(s), Oral, BIDM budesonide 0.25 mg/2 mL Susp UD 0.25 mg 2 mL, Inhalation, BIDRT ceFAZolin 2 gram(s), IV Piggyback, PREOP pharm dexamethasone 10 mg/mL (1mL) SDV 10 mg 1 mL, IV Push, AsDirected diclofenac sodium 75 mg EC tablet 75 mg 1 tab(s), Oral, BID dicyclomine 10 mg capsule 20 mg 2 cap(s), Oral, BID docusate sodium 100 mg Capsule 100 mg 1 cap(s), Oral, BID docusate-senna (Senokot S) 50 mg-8.6 mg Tablet 2 tab(s), Oral, BID doxycycline hyclate 100 mg Capsule 100 mg 1 cap(s), Oral, q12h famotidine 20 mg tablet 20 mg 1 tab(s), Oral, qDay ferrous sulfate 325 mg Tablet 325 mg 1 tab(s), Oral, BID folic acid 1 mg tablet 1 mg 1 tab(s), Oral, qDay gabapentin 300 mg Capsule 300 mg 1 cap(s), Oral, TID levothyroxine 88 mcg tablet 88 mcg 1 tab(s), Oral, qHS magnesium hydroxide 8% Suspension 30 mL UD 30 mL, Oral, Daily montelukast 10 mg Tablet 10 mg 1 tab(s), Oral, qDay multivitamin (Myadec) with minerals Therapeutic Multiple Vitamins with Minerals Tablet 1 tab(s), Oral, qDayM ondansetron 2 mg/ 1 mL 2 mL INJ 4 mg 2 mL, IV Push, q8h potassium chloride 20 mEq ER tablet 20 mEq 1 tab(s), Oral, BID sertraline 50 mg tablet 50 mg 1 tab(s), Oral, Daily traZODONE 50 mg Tablet 100 mg 2 tab(s), Oral, qHS Continuous: (1) Lactated Ringers 1,000 mL 1,000 mL, Intravenous, 100 mL/hr PRN: (10) acetaminophen 325 mg Tablet 650 mg 2 tab(s), Oral, q4h diazepam 5 mg tablet 5 mg 1 tab(s), Oral, q8h diphenhydramine 25 mg tablet 25 mg 1 tab(s), Oral, q6h diphenhyDRAMINE 50 mg/mL (1 mL) INJ 25 mg 0.5 mL, IV Push, q6h ketorolac 30 mg/mL (1 mL) vial 15 mg 0.5 mL, IV Push, q6h morphine 2 mg/mL 1 mL syringe 2 mg 1 mL, IV Push, q1h ondansetron 2 mg/ 1 mL 2 mL INJ 4 mg 2 mL, IV Push, q8h oxycodone 5 mg tablet (immediate release) 5 mg 1 tab(s), Oral, q4h oxycodone 5 mg tablet (immediate release) 10 mg 2 tab(s), Oral, q4h sodium biphosphate-sodium phosphate 19 gm-7 gm Enema 133 mL, Rectal, qDay Lab Results 10/31 05:26 WBC: 12.8 H Hgb: 8.7 L Hct: 26.4 L Platelet: 286 Neutrophil %: 91.3 H Glucose Level: 147 H Sodium Level: 136 Potassium Level: 5.5 H BUN: 16 Creatinine Lvl (s): 0.96 EKG No qualifying data available. Assessment/Plan 1. Osteoarthritis 1. Status post right revision total hip arthroplasty anterior approach and right knee corticosteroid injection postop day #1 2. Continue pain medications: Tylenol and oxycodone. Patient is seen by pain management Dr. Christianson in which she takes Gepp chronically. 3. DVT prophylaxis: Take 81 mg aspirin twice daily with food for 4 weeks postoperatively for DVT prophylaxis. Patient denies past history of DVT or pulmonary embolism 4. Physical therapy: Weightbearing as tolerated with walker 5. H & H: 8.7/26.4, asymptomatic. Postoperative acute on chronic anemia secondary to acute blood loss from surgery without intraoperative complications. Preoperatively patient's hemoglobin/hematocrit was 10.6/31.7 on October 15, 2022. At that time she was placed on folic acid and iron supplements. She reports not being on any medications prior to this. She does report in the past having some anemia. I did discuss with the patient that we will repeat lab work tomorrow and also have patient follow-up with the primary care physician in 1 to 2 weeks postoperatively with repeat lab work for further management. She voiced understanding. 6. Reactive leukocytosis: Currently 12.8, afebrile. Patient did receive Decadron intraoperatively 7. Continue antibiotics while following cultures: Gram stain without any growth in cultures pending. Patient will continue with doxycycline postoperatively for 2 weeks while following cultures. 8. Encouraged incentive spirometry 9. Continue postoperative medical management per medicine 10. Disposition: Due to patient's anemia, following cultures, and revision total hip arthroplasty I do feel patient would benefit from an additional night to get appropriate physical therapy. Patient does live home alone and does not have someone around to help her frequently. She is concerned about trying to get up as it is been difficult getting up out of bed by herself. I would like physical therapy to assess her for appropriate discharge planning. tar pot worker will also help with appropriate discharge planning. I would recommend patient follow-up with the primary care physician in 1 to 2 weeks with repeat lab work and further management of the anemia. She will continue with the folic acid and iron supplement. We will repeat lab work tomorrow. Continue to follow cultures. I have reviewed the [place] Automated Rx Reporting System (OARRS) report for this patient for refill pattern and other prescriber involvement as part of the appropriate surveillance for the provision of acute and chronic controlled medications. The report was requested and reviewed on the date of this entry, and was considered in the prescribing process This dictation was created using voice recognition software. Phonetic and/or grammatical errors may exist. 2. COPD (chronic obstructive pulmonary disease) 3. Seizure disorder 4. Hypothyroidism 5. GERD (gastroesophageal reflux disease) Orders: dexamethasone, Start: 10/30/22 6:00:00 EST, Dose = 10 mg, = 1 mL, IV Push, AsDirected, 18 hour(s), Stop: 10/30/22 23:59:00 EST, 0 ferrous sulfate, Start: 10/31/22 6:43:00 EST, Dose = 325 mg, = 1 tab(s), Oral, BID, 10/31/22 6:43:00 EST folic acid, Start: 10/31/22 9:00:00 EST, Dose = 1 mg, = 1 tab(s), Oral, qDay, 10/31/22 6:42:00 EST Basic Metabolic Panel Complete Blood Count Digitally Signed by SANTO BETTS PA-C on 10/31/2022 06:50 AM [facility] 10-30-2022 Note ORIGINAL EXAMINATION: ONE XRAY VIEW OF THE PELVIS AND TWO XRAY VIEWS RIGHT HIP 10/30/2022 1:29 pm COMPARISON: None. HISTORY: ORDERING SYSTEM PROVIDED HISTORY: Reason for Exam: Status Post Arthroplasty FINDINGS: Right total hip arthroplasty in near anatomic alignment. Femoral component is well seated within the acetabular component. No evidence of hardware malfunction or complication. No fracture or dislocation. Pelvic ring and visualized sacral arcs are intact. Subcutaneous and periarticular gas adjacent to the proximal femoral up to the ASIS. IMPRESSION: Total hip arthroplasty without evidence of hardware malfunction or complication. Expected postoperative findings.. I have personally reviewed the images of this examination and agree with the resident's findings and interpretation. Interpreted by: María Elena Marcos DO Preliminary Report By: Ming Cunningham Electronically signed By María Elena Marcos DO Dictated Date: 10/30/2022 1:40:56 PM Prelim Date: 10/30/2022 1:55:18 PM Sign Date: 10/30/2022 1:55:18 PM Ordering Provider: MADELYN SMART [facility] 10-30-2022 Note ORIGINAL Images acquired, not reported on this accession number. [facility] 10-30-2022 Note ORIGINAL Images acquired, not reported on this accession number. [facility] 10-30-2022 Note ORIGINAL EXAMINATION: ONE XRAY VIEW OF THE PELVIS AND TWO XRAY VIEWS RIGHT HIP 10/30/2022 1:29 pm COMPARISON: None. HISTORY: ORDERING SYSTEM PROVIDED HISTORY: Reason for Exam: Status Post Arthroplasty FINDINGS: Right total hip arthroplasty in near anatomic alignment. Femoral component is well seated within the acetabular component. No evidence of hardware malfunction or complication. No fracture or dislocation. Pelvic ring and visualized sacral arcs are intact. Subcutaneous and periarticular gas adjacent to the proximal femoral up to the ASIS. IMPRESSION: Total hip arthroplasty without evidence of hardware malfunction or complication. Expected postoperative findings.. I have personally reviewed the images of this examination and agree with the resident's findings and interpretation. Interpreted by: María Elena Marcos DO Preliminary Report By: Ming Cunningham Electronically signed By María Elena Marcos DO Dictated Date: 10/30/2022 1:40:56 PM Prelim Date: 10/30/2022 1:55:18 PM Sign Date: 10/30/2022 1:55:18 PM Ordering Provider: MADELYN SMART [facility] 10-30-2022 Anesthesiology Consult note Patient: LEA GOMEZ Age: 67 years Sex: Female : 1955 Associated Diagnoses: None Author: BIB PAGE Preoperative Information Time of last food or liquid consumption: 10/30/2022 00:00:00 Anesthesia history Patient's history: negative. Family's history: negative. Review of Systems Ear/Nose/Mouth/Throat: Negative. Respiratory: asthma, COPD. Cardiovascular: murmur, hx [place]. Gastrointestinal: Reflux, obese. Genitourinary: Negative. Endocrine: hypothyroid. Musculoskeletal: OA. Integumentary: Negative. Neurologic: AGDAAGUX, seizures, hx strokes, hx tbi. Health Status Allergies: Allergic Reactions (Selected) Severity Not Documented Bee Stings- No reactions were documented. Depakote- No reactions were documented. Dilantin- No reactions were documented. Ditropan- No reactions were documented. Influenza virus vaccine, inactivated- No reactions were documented. Latex- No reactions were documented. Meloxicam- No reactions were documented. Pravastatin- No reactions were documented. Tetracycline- No reactions were documented. TraMADol- No reactions were documented., Allergies (10) ActiveReaction Bee StingsNone Documented DepakoteNone Documented DilantinNone Documented DitropanNone Documented influenza virus vaccine,None Documented inactivated LatexNone Documented meloxicamNone Documented pravastatinNone Documented tetracyclineNone Documented traMADolNone Documented Current medications: (Selected) Inpatient Medications Ordered Betadine 10% topical solution: 17.5 mL, mL/hr, Topical (INT), PREOP pharm Cyklokapron IVPB: 2,000 mg, 20 mL, 0 mL/hr, Topical (INT), PREOP pharm Decadron: 10 mg, 1 mL, IV Push, AsDirected Kefzol: 2 gram(s), 200 mL/hr, IV Piggyback, PREOP pharm LR 1,000 mL: 20 mL/hr, Intravenous, Stop: 10/30/22 23:59:00 EST LR 1000 mL: 20 mL/hr, Intravenous Naropin 100 mg + Toradol 15 mg + EPINEPHrine 1 mg/mL injectable solution 0.3 mg + morphine 2.5 mg...: 100 mg, 20 mL, mL/hr, Other, PREOP pharm Naropin 100 mg + Toradol 15 mg + EPINEPHrine 1 mg/mL injectable solution 0.3 mg + morphine 2.5 mg...: 100 mg, 20 mL, mL/hr, Other, PREOP pharm Zofran ( PACU ): 4 mg, 2 mL, IV Push, AsDirected, PRN: Nausea/Vomiting morphine ( PACU ): 2 mg, 1 mL, IV Push, q5min, PRN: Pain, scale 4-6 Documented Medications Documented ARIPiprazole 5 mg oral tablet: 5 mg, 1 tab(s), Oral, Daily, 0 Refill(s) Spiriva HandiHaler 18 mcg inhalation capsule: 2 puff(s), Inhalation, qHS, 90 EA, 0 Refill(s) Symbicort 160 mcg-4.5 mcg/inh Inhaler: 2 puff(s), Inhalation, BID, 10.2 gram(s), 0 Refill(s) Tylenol Extra Strength 500 mg oral tablet: 1,000 mg, 2 tab(s), Oral, q4h, PRN: as needed for pain, 120 tab(s), 0 Refill(s) Ventolin HFA MDI (90 mcg/inh) inhalation aerosol: 2 puff(s), Inhalation, q4h, PRN: as needed for wheezing, 18 gram(s), 0 Refill(s) Vitamin D3: 50 mcg, 1 tab(s), Oral, Daily, 60 tab(s), 0 Refill(s) acetaminophen-hydrocodone 325 mg-5 mg oral tablet: 1 tab(s), Oral, q6h, May take 1-2 tablets / dose, PRN: for pain, tab(s), 0 Refill(s) aspirin 81 mg oral delayed release tablet: 81 mg, 1 tab(s), Oral, Daily, 0 Refill(s) benzonatate 100 mg oral capsule: 200 mg, 2 cap(s), Oral, TID, PRN: as needed for cough, 30 cap(s), 0 Refill(s) diazePAM 5 mg oral tablet: 5 mg, 1 tab(s), Oral, q8h, PRN: as needed for anxiety, 0 Refill(s) diclofenac sodium 75 mg oral delayed release tablet: 75 mg, 1 tab(s), Oral, BID, 60 tab(s), 0 Refill(s) dicyclomine 20 mg oral tablet: 1 TAB, BID, 0 Refill(s) gabapentin 300 mg oral capsule: 300 mg, 1 cap(s), Oral, TID, 270 cap(s), 0 Refill(s) levothyroxine 88 mcg (0.088 mg) oral tablet: 88 mcg, 1 tab(s), Oral, qDayAC, 0 Refill(s) lysine 500 mg oral tablet: 1,000 mg, 2 tab(s), Oral, Daily, 100 tab(s), 0 Refill(s) methocarbamol 500 mg oral tablet: 500 mg, 1 tab(s), Oral, TID, for 10 day(s), 80 tab(s), 0 Refill(s) montelukast 10 mg oral tablet: 10 mg, 1 tab(s), Oral, qDay, 90 tab(s), 0 Refill(s) omeprazole 40 mg oral delayed release capsule: 80 mg, 2 cap(s), Oral, qDay, 60 cap(s), 0 Refill(s) potassium chloride 20 mEq oral tablet, extended release: 20 mEq, 1 tab(s), Oral, BID, Take with food., 60 tab(s), 0 Refill(s) prazosin 1 mg oral capsule: 1 mg, 1 cap(s), Oral, TID, 0 Refill(s) sertraline 25 mg oral tablet: 50 mg, 2 tab(s), Oral, Daily, 0 Refill(s) traZODone 150 mg oral tablet: 150 mg, 1 tab(s), Oral, qHS, 0 Refill(s), Medications (10) Active Scheduled: (6) ceFAZolin 2 gram(s), IV Piggyback, PREOP pharm dexamethasone 10 mg/mL (1mL) SDV 10 mg 1 mL, IV Push, AsDirected povidone iodine topical 17.5 mL, Topical (INT), PREOP pharm ropivacaine 100 mg + ketorolac 15 mg + epinephrine 0.3 mg + morphine 2.5 mg 100 mg 20 mL, Other, PREOP pharm ropivacaine 100 mg + ketorolac 15 mg + epinephrine 0.3 mg + morphine 2.5 mg 100 mg 20 mL, Other, PREOP pharm tranexamic acid 2,000 mg 20 mL, Topical (INT), PREOP pharm Continuous: (2) Lactated Ringers 1,000 mL 1,000 mL, Intravenous, 20 mL/hr Lactated Ringers Infusion 1000 mL 1,000 mL, Intravenous, 20 mL/hr PRN: (2) morphine 2 mg/mL 1 mL syringe 2 mg 1 mL, IV Push, q5min ondansetron 2 mg/ 1 mL 2 mL INJ 4 mg 2 mL, IV Push, AsDirected Problem list: Active Problems (12) Asthma Cancer COPD (chronic obstructive pulmonary disease) GERD (gastroesophageal reflux disease) Heart murmur AGDAAGUX (hard of hearing) Hypothyroidism [place] (myocardial infarction) Osteoarthritis Seizure disorder Stroke TBI (traumatic brain injury) Histories Past Medical History: No active or resolved past medical history items have been selected or recorded. Family History: Patient was adopted. Procedure history: Total hip replacement ([id number]). Comments: 10/15/2022 11:22 MAYCOL Wynn PRESTON Cholecystectomy ([id number]). Lumpectomy of left breast ([id number]). Total hysterectomy ([id number]). Comments: 10/15/2022 12:12 MAYCOL Wynn VAGINAL Social History Social & Psychosocial Habits Alcohol 10/15/2022 Use: Never Substance Abuse 10/15/2022 Use: Never Tobacco 10/15/2022 Tobacco Use: Never (less than 100 in l Home/Environment 10/15/2022 Domestic Concerns None Lives In Single level home Marital Status of Patient if Patient Independent Adult: Unmarried Nutrition/Health 10/15/2022 Type of diet: Regular Eating Difficulties None . Physical Examination Vital Signs 10/30/2022 11:10 EST Heart Rate Monitored 42 bpm bpm Respiratory Rate - Anes 12 br/min br/min Systolic Blood Pressure Non-Invasive 94 mmHg mmHg Diastolic Blood Pressure Non-Invasive 54 mmHg mmHg 10/30/2022 11:05 EST Heart Rate Monitored 44 bpm bpm Respiratory Rate - Anes 12 br/min br/min Systolic Blood Pressure Non-Invasive 89 mmHg mmHg Diastolic Blood Pressure Non-Invasive 50 mmHg mmHg 10/30/2022 11:00 EST Respiratory Rate - Anes 3 br/min br/min Systolic Blood Pressure Non-Invasive 117 mmHg mmHg Diastolic Blood Pressure Non-Invasive 61 mmHg mmHg 10/30/2022 10:55 EST Heart Rate Monitored 46 bpm bpm Respiratory Rate - Anes 0 br/min br/min Systolic Blood Pressure Non-Invasive 101 mmHg mmHg Diastolic Blood Pressure Non-Invasive 45 mmHg mmHg 10/30/2022 10:51 EST Systolic Blood Pressure Non-Invasive 134 mmHg mmHg Diastolic Blood Pressure Non-Invasive 69 mmHg mmHg 10/30/2022 9:10 EST Temperature Temporal Artery 36.6 DegC Peripheral Pulse Rate 53 bpm LOW Respiratory Rate 14 br/min Systolic Blood Pressure Non-Invasive 115 mmHg Diastolic Blood Pressure Non-Invasive 72 mmHg Vital Signs(last 24 hrs) Last Charted Heart Rate [id number] bpm (OCT 30 11:10) Resp Rate 14 br/min (OCT 30 09:10) SBP94 mmHg (OCT 30 11:10) DBP54 mmHg (OCT 30 11:10) Measurements from flowsheet : Measurements 10/30/2022 9:10 EST Height 170.2 cm Height in inches 67 inch(es) Admission Weight 79 kg Weight Lbs 173.8 lb Weight Method Stated [place] Body Weight 61.62 kg Admission Body Mass Index 27.27 m2 Pain assessment: Pain Assessment 10/30/2022 9:10 EST Primary Pain Location Hip Primary Pain Intensity 7 Pain Scale Type 0-10 Pain scale . General: Alert and oriented. Airway: Normal temporomandibular joint mobility. Mallampati classification: II (soft palate, fauces, uvula visible). Head: Normocephalic. Dentition Evaluation: Own teeth. Neck: Supple. Respiratory: Lungs are clear to auscultation. Cardiovascular: SB. Heart Sounds: Normal, Murmur. Gastrointestinal: Soft. Musculoskeletal Normal range of motion. Integumentary: Intact. Neurologic: Alert, Oriented. Review / Management Results review: No qualifying data available , Lab results 10/30/2022 11:10 EST Heart Rate Monitored 42 bpm bpm Respiratory Rate - Anes 12 br/min br/min Systolic Blood Pressure Non-Invasive 94 mmHg mmHg Diastolic Blood Pressure Non-Invasive 54 mmHg mmHg Oxygen Saturation 100 % % Set Rate Anes 12 br/min br/min 10/30/2022 11:05 EST Heart Rate Monitored 44 bpm bpm Respiratory Rate - Anes 12 br/min br/min Systolic Blood Pressure Non-Invasive 89 mmHg mmHg Diastolic Blood Pressure Non-Invasive 50 mmHg mmHg Oxygen Saturation 100 % % Set Rate Anes 12 br/min br/min 10/30/2022 11:00 EST Respiratory Rate - Anes 3 br/min br/min Systolic Blood Pressure Non-Invasive 117 mmHg mmHg Diastolic Blood Pressure Non-Invasive 61 mmHg mmHg Oxygen Saturation 100 % % Set Rate Anes 12 br/min br/min 10/30/2022 10:55 EST Heart Rate Monitored 46 bpm bpm Respiratory Rate - Anes 0 br/min br/min Systolic Blood Pressure Non-Invasive 101 mmHg mmHg Diastolic Blood Pressure Non-Invasive 45 mmHg mmHg Oxygen Saturation 100 % % 10/30/2022 10:51 EST Systolic Blood Pressure Non-Invasive 134 mmHg mmHg Diastolic Blood Pressure Non-Invasive 69 mmHg mmHg 10/30/2022 10:49 EST SN - [place] - Route of Administration Local SN - [place] - By (Single) SN - [place] - By (Single) 10/30/2022 10:31 EST SN - [place] - Route of Administration Local SN - [place] - Route of Administration Local SN - [place] - Route of Administration Local SN - [place] - By (Single) SN - [place] - By (Single) SN - [place] - By (Single) SN - [place] - By (Single) SN - [place] - By (Single) SN - [place] - By (Single) 10/30/2022 10:29 EST SN - Proc - Actual Procedure REVISION RIGHT TOTAL HIP ARTHROPLASTY, ANTERIOR APPROACH, CORTISONE INJECTION RIGHT KNEE SN - Proc - Actual Procedure . 10/30/2022 10:29 EST SN - XI - X-Ray Type C-Arm 10/30/2022 10:29 EST SN - CAt - Case Attendee SN - CAt - Case Attendee SN - CAt - Role Performed Tool Crib Clerk 10/30/2022 10:28 EST SN - Irl - Irrigant Normal Saline SN - Irl - Irrigant Normal Saline SN - Irl - Irrigant Sterile Water SN - IrI - Volume In 500 mL SN - IrI - Volume In 450 mL SN - Irl - Additive BETADINE (POVIDONE IODINE) SOLUT SN - Irl - Additive IRRIGATION CHG 0.05% IRRISEPT 12/CA [id number] SN - IrI - Volume Out 500 mL SN - IrI - Volume Out 450 mL 10/30/2022 10:27 EST SN - SP - Prep Agents Chloraprep SN - SP - Prep Agents Alcohol SN - SP - HR - Method Clipped SN - SP - HR - Method N/A 10/30/2022 10:27 EST SN - PP - Body Position Supine Standard Intra-op 10/30/2022 10:26 EST SN - Assess - LOC Alert, Awake SN - Assess - Orientation Oriented X 3 SN - Assess - Post-op Skin Integrity Intact/Dry 10/30/2022 10:17 EST SN - GCD - Post-operative Diagnosis MECHANICAL LOOSENING OF INTERNAL RIGHT HIP PROSTHETIC JOINT, INITIAL ENCOUNTER SN - GCD - Case Level Level 5 10/30/2022 10:15 EST SN - CAt - Case Attendee SN - CAt - Case Attendee SN - CAt - Case Attendee SN - CAt - Case Attendee SN - CAt - Case Attendee SN - CAt - Case Attendee SN - CAt - Case Attendee SN - CAt - Case Attendee SN - CAt - Case Attendee SN - CAt - Case Attendee SN - CAt - Case Attendee SN - CAt - Case Attendee SN - CAt - Case Attendee SN - CAt - Case Attendee SN - CAt - Role Performed Primary Surgeon SN - CAt - Role Performed Survey Data Technician 1 SN - CAt - Role Performed RESTAURANT INSPECTOR SN - CAt - Role Performed Apparatus Engineering Technologist 1 SN - CAt - Role Performed Physician Correctional Sergeant SN - CAt - Role Performed Scrub 1 SN - CAt - Role Performed Tool Crib Clerk 10/30/2022 9:59 EST SN - Preop - CTm Pt in SDS Room 10/30/2022 8:56 SN - Preop - CTm Pt Ready for OR/Proced 10/30/2022 9:58 10/30/2022 9:47 EST ABO/Rh Interp O POS Antibody Screen Gel Negative ABSC 10/30/2022 9:45 EST celecoxib 400 mg mg famotidine 20 mg mg Lactated Ringers Injection 1,000 mL mL 10/30/2022 9:22 EST citric acid-sodium citrate Not Done: Not Appropriate at this Time (Not Done) 10/30/2022 9:10 EST Height 170.2 cm Height in inches 67 inch(es) Admission Weight 79 kg Weight Lbs 173.8 lb Weight Method Stated [place] Body Weight 61.62 kg Admission Body Mass Index 27.27 m2 Temperature Temporal Artery 36.6 DegC Peripheral Pulse Rate 53 bpm LOW Respiratory Rate 14 br/min Systolic Blood Pressure Non-Invasive 115 mmHg Diastolic Blood Pressure Non-Invasive 72 mmHg Primary Pain Location Hip Primary Pain Intensity 7 Pain Scale Type 0-10 Pain scale Monitor Alarms On and Limits Checked Heart Sounds ICU S1S2 Heart Rhythm Regular Oxygen Therapy Room air Oxygen Saturation 96 % Abdomen Description Non-distended, Symmetric, Soft Abdomen Palpation Non-Tender, Soft Bowel Sounds All Quadrants Present Urinary Elimination Voiding, no difficulties Skin Temperature Warm Skin Description [place]art Skin Integrity Intact IV Present Present Continuous IV Infusions LR Hand Left 10/30/2022 22 gauge Peripheral IV Activity: Insert new site Peripheral IV Dressing Condition: Clean, Dry, Intact Peripheral IV Dressing Activity: Transparent dressing Peripheral IV Line Status/Patency: Flushes easily Peripheral IV Line Care: Secured with tape Peripheral IV Site Condition: No complications Peripheral IV Equipment: Extension set, PRN Adaptor Peripheral IV Number of Attempts: 3 Extremity Movement Unequal Characteristics of Speech Clear Level of Consciousness Alert MELISA Yes Affect/Behavior Appropriate, Calm, Cooperative Orientation Oriented x 4 Allergies Yes Weigher Operator On Yes Consent Form Signed Yes Patient Dressed In Hospital gown, No undergarments Pre-op Preparation Undergarments removed CHG Preoperative Wash/Wipe Night before procedure, Day of procedure Preop Nasal Swab Povidone-Iodine History & Physical Update On Chart Yes History & Physical On Chart Yes Obstructive Sleep Apnea Assess Completed Yes Orientation Assessment Oriented x 4 Activity Status ADL Awake Assistive Device Walker NPO Status Maintained Standard Safety ID band on, Allergy Band on, Call device within reach, Bed in low position, Wheels locked, Upper/Half-Length side-rails up, Safety level maintained, Non-Slip footwear Demonstrates Correct Call Light Use Yes Allergy Band on and Verified Yes Blood Band on and Verified Yes Patient ID Band on and Verified Yes Implants Verified Yes Pacemaker/AICD Verified Yes Anesthesia Consent Signed Yes Blood Consent Signed Yes Last Fluid Intake 10/29/2022 22:00 Last Food Intake 10/29/2022 10:00 Last Void 10/30/2022 8:00 10/30/2022 8:57 EST Privacy Restrictions Requested None Sensory Deficits Hearing deficit, left ear, Hearing deficit, right ear Safety Brochure Information Reviewed Unable to complete [facility] Video Viewed No Teaching Evaluation No further teaching needed Discharge To, Anticipated Home independently Admission Note-Nursing Same Day Patient History (Modified) . Assessment and Plan [place] [employer]hesi[employer] (ASA) physical status classification: Class III. Anesthetic Preoperative Plan Premedication: intravenous. Anesthetic technique: General. Induction: intravenously. Maintenance airway: Oral endotracheal tube. Postoperative pain management: Per surgeon. Risks discussed: nausea, vomiting, sore throat. Informed consent: signed by patient. Digitally Signed by BIB PAGE on 10/30/2022 11:22 AM [facility] 10-18-2022 Miscellaneous Notes Patient has been identified by name and date of : Yes Last office visit in this department: 09/24/2022 RX INSTRUCTIONS: Patient aware RX will be sent to pharmacy. No need to notify patient. Patient phones requesting refills as follows: Requested Prescriptions Pending Prescriptions Disp Refills benzonatate (TESSALON PERLE) 100 mg capsule 60 capsule 0 Sig: Take 2 capsules by mouth every morning. Please review and advise. Jackie Duenas documented in this encounter [facility] 10-17-2022 Miscellaneous Notes Patient called requesting a letter stating she needs emotional support animals. Patient has 1 dog and 1 cat. Please call patient and advise when completed. documented in this encounter [facility] 10-12-2022 Note HNO ID: [id number] Author: Kaycee Younger APRN.WHITNEY Service: ? Author Type: Nurse Practitioner Type: Progress Notes Filed: 10/26/2022 1:07 PM Note Text: [facility] Initial Visit Consultation is requested by: Doreen Oliver [address] [place], [place] [id number] PCP: Doreen Oliver [address] [place] [address] CEREBROVASCULAR HISTORY Lea Gomez is a 67 year old left-handed female who presents for neurologic evaluation needed for surgical clearance in regarding history of stroke in May 2022. She is scheduled for revision of a right total hip arthroplasty with Dr. Willis Smart in [place], [place]. She presents today with her niece, Karla Campbell to establish care as requested for surgical clearance. Reason for Visit: stroke Date of Last Event: 05/25/2022 History of Event: 67 year old female with history of breast and cervical cancer, depression, heart attack, migraines, chronic pain, COPD, glaucoma, spinal cord injury with recent ischemic stroke in May 2022 at [facility]. The patient reports sudden onset of symptoms when she arrived at her niece's house with slurred speech, word-finding difficulties, right sided weakness and right facial droop. She notes feeling like something was wrong when she was driving. She was admitted to [facility] and underwent evaluation reportedly with MRI, CT, carotid ultrasound and echocardiogram (no imaging or reports for review at today's visit). She is unsure as to why she had a stroke. She was started on aspirin and discharged home with outpatient therapy. She reports increasing right sided weakness and difficulty swallowing approximately 2 weeks later for which she represented to the hospital. She was later discharged home with outpatient therapies. She reports a recent right knee injury sustained after falling off her porch. She has been using a Rolator since fall and to restart outpatient physical therapy. She is currently receiving [facility] for speech and cognitive therapies. She reports short term memory loss since her stroke. Her speech remains slurred. She remains on aspirin without any reported ill effects or bleeding complications. She has history of right hip arthroplasty with increasing right hip pain for the past 1.5 years. She is scheduled for revision at the end of the month. She has a history of heart attack that she attributes to stress associated with her previous marriage- no PCI or surgery. She reports a heart murmur since . Denies chest pain, heart palpitations or fluttering. Notes shortness of breath related to COPD. Denies history of high blood pressure or hyperlipidemia. She lives independently in [place], [place]. Her niece checks on her daily. 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% Depression Dysphagia Glaucoma History of heart attack Migraine, intractable Osteoarthritis of multiple joints Sciatica Spinal cord injury at C1-C4 level (HCC) Stroke (HCC) PAST SURGICAL HISTORY Procedure Laterality Date BREAST LUMPECTOMY HX Left x3 REMOVAL GALLBLADDER TOTAL ABDOM HYSTERECTOMY 1970 FAMILY HISTORY Adopted: Yes No known family history Social History Tobacco Use Smoking status: Never Smokeless tobacco: Never Vaping Use Vaping Use: Never used Substance Use Topics Alcohol use: Never Drug use: Never MEDICATIONS Current Outpatient Medications Medication Sig EPINEPHrine 1 mg/mL injection Inject 1 mL intramuscularly as needed. gabapentin (NEURONTIN) 300 mg capsule Take 1 capsule by mouth three times daily. WALKER ROLLATOR SEAT WITH 6 WHEELS - RED Rollator walker, please send to [facility] aspirin, enteric coated (ASPIRIN, ENTERIC COATED) 81 mg EC tablet Take 81 mg by mouth once daily. tiotropium bromide (SPIRIVA WITH HANDIHALER INHALATION) Inhale 2 Puffs as instructed daily at bedtime. benzonatate (TESSALON PERLE) 100 mg capsule Take 2 capsules by mouth every morning. dicyclomine (BENTYL) 20 mg tablet Take 1 tablet by mouth twice daily. Acetaminophen 500 mg cap Take 1,000 mg by mouth as needed. albuterol (PROVENTIL) 2.5 mg /3 mL (0.083 %) nebulizer solution Inhale 2.5 mg as instructed every 6 hours as needed. albuterol HFA (PROVENTIL HFA, VENTOLIN HFA) 90 mcg/actuation inhaler Inhale 2 Puffs as instructed every 6 hours as needed. ARIPiprazole (ABILIFY) 5 mg tablet Take 1 tablet by mouth once daily. budesonide-formoterol (SYMBICORT) 160-4.5 mcg/actuation inhaler Inhale 2 Puffs as instructed as needed. Cholecalciferol, Vitamin D3, 25 mcg (1,000 unit) cap Take 1 capsule by mo (more content not included)... [facility] 10-10-2022 Miscellaneous Notes PATIENT reminded of same and will complete tomorrow. Ortho is requesting her surgical pre-op paper work be completed. She needs to do her chest xray and labs for me to sign off. Can we please remind her to do this. documented in this encounter [facility] 10-08-[address] Cardona reviewed the results from [facility]. They are benign. The patient can have yearly ultrasounds, with her PCP, for surveillance. Patient called, reviewed Dr. Cardona's message. She voiced understanding. Mary Ann Fajardo RN Pt calling to get results of the thyroid biopsy that was done 09/26/2022. Please review and advise. Elsa Villavicencio MA documented in this encounter [facility] 10-02-2022 Miscellaneous Notes Form faxed to number listed and patient aware of same. Form completed, please let her know. thanks Patient dropped off a Release of Medical Information and Verification of Handicap for reasonable Accommodation Request. Patient wants to be able to have her 2 cats/support animals live with her. Form on PCP desk for completion. Call patient once completed. documented in this encounter [facility] 09-29-2022 Miscellaneous Notes Spoke to Patient, she requested RX to go to [facility], let her know it was sent to [facility]. Patient wants to cancel sending to [facility] pharmacy, she will wait for RX to come from [facility]. Shira Cain LPN Patient has been identified by name and date of : Yes Requested Prescriptions Pending Prescriptions Disp Refills gabapentin (NEURONTIN) 300 mg capsule 270 capsule 3 Sig: Take 1 capsule by mouth three times daily. RX INSTRUCTIONS: Patient aware RX will be sent to pharmacy. No need to notify patient. Maribel Bolden Pss documented in this encounter [facility] 09-28-2022 Miscellaneous Notes Pended RX signed for new script to pharmacy. [facility] pharmacy calling to clarify Epinephrine rx. Asking if you wanted 30 ml, that is how rx comes. Or did you want epi pen rx? Asking to have new rx sent please. Please advise documented in this encounter [facility] 09-24-2022 Instructions Nancy Ortiz LPN - 09/24/2022 4:49 PM EST Instructions After THYROID FINE NEEDLE ASPIRATION Please do not take aspirin or other blood thinners for the next few days. If you have bleeding from the needle site, hold pressure with a clean gauze. If the bleeding continues, contact our office immediately. I recommend taking Advil or Tylenol for the discomfort. An ice pack may improve your discomfort to the area. Contact our office immediately if you have any questions or concerns @ [phone]. will call you with results in one week and thank you for choosing the [facility]. documented in this encounter [facility] 09-24-2022 Nurse Note UNIVERSAL PROTOCOL / SAFETY CHECKLIST Procedure to be Performed: Ultrasound Guided Fine Needle Aspiration Thyroid right Sign In: A Moment of CARE was completed. Personnel directly involved with the procedure wore the appropriate PPE (Personal Protective Equipment). No special equipment needed. Patient/Surrogate Stated/Verified: PATIENT VERIFIED(optional for EMERGENT procedures): Patient name, Date of , Relevant allergies, and The intended procedure Time Out Communication: Intended patient and procedure match the source documents. Consent documented and matches the intended procedure. Relevant labs, photos, and/or imaging studies have been reviewed. Correct side/site marked and visible. Medications required for procedure verified. No fire risk assessment and interventions applicable. No implant(s) inserted. Sign Out: SIGN OUT (optional for EMERGENT procedures): All specimen containers correctly labeled. No instruments, equipment or retained foreign bodies applicable. Post-procedure follow-up management communicated and Plan of Care Visit completed when applicable. Nancy Ortiz LPN documented in this encounter [facility] 09-24-2022 History of Presen t illness Narrative Preoperative diagnosis: Multinodular goiter Postoperative diagnosis: The same Procedure: Ultrasound-guided fine-needle aspiration of dominant right thyroid nodule Surgeon: Brendan Procedure: Ultrasound of the right thyroid lobe. Revealed the nodule in the mid lobe it was approximately 1.6 cm in greatest diameter. I prepped the skin with alcohol. I injected 1% lidocaine plain. Under ultrasound guidance I took 3 passes with a 22-gauge needle through this nodule. I plated on glass slides. It had a very gooey appearance to it very similar to other colloid nodules that I had biopsied in the past. Sterile dressings were applied and the patient tolerated the procedure well. documented in this encounter [facility] 09-24-2022 Zenia Oliver APRN.TELECOMMUNICATIONS CLERK - 09/24/2022 3:00 PM EST WHAT YOU CAN DO TO PREVENT FALLS Many falls can be prevented. By making some changes, you can lower your chances of falling. Four things YOU can do to prevent falls for you* and your caregiver 1. Begin a regular exercise program Exercise is one of the most important ways to lower your chances of falling. It makes you stronger and helps you feel better. Exercises that improve balance and coordination (like Sae Chi) are the most helpful. Lack of exercise leads to weakness and increases your chances of falling. Ask your doctor or health care provider about the best type of exercise program for you. 2. Have your health care provider review your medicines Have your doctor or pharmacist review all the medicines you take, even rciy-kye-mjthlug medicines. As you get older, the way medicines work in your body can change. Some medicines, or combinations of medicines, can make you sleepy or dizzy and can cause you to fall. 3. Have your vision checked Have your eyes checked by an eye doctor at least once a year. You may be wearing the wrong glasses or have a condition like glaucoma or cataracts that limits your vision. Poor vision can increase your chances of falling. 4. Make your home safer About half of all falls happen at home. To make your home safer: Remove things you can trip over (like papers, books, clothes, and shoes) from stairs and places where you walk. Remove small throw rugs or use double-sided tape to keep the rugs from slipping. Keep items you use often in cabinets you can reach easily without using a step stool. Have grab bars put in next to your toilet and in the tub or shower. Use non-slip mats in the bathtub and on shower floors. Improve the lighting in your home. As you get older, you need brighter lights to see well. Hang light-weight curtains or shades to reduce glare. Have handrails and lights put in on all staircases. Wear shoes both inside and outside the house. Avoid going barefoot or wearing slippers. For more information, contact: Centers for Disease Control and Prevention www.cdc.gov/injury * This information may not apply if you have certain medical conditions. documented in this encounter [facility] 09-24-2022 History of Presen t illness Narrative SUBJECTIVE Lea Gomez is a 67 year old female here today for a pre-op visit. Chief Complaint Patient presents with: Pre-Op Exam: Right hip replacement HPI Lea Gomez is an 67 year old female presents to the office for pre-op examination. Is scheduled to have a posterior revision right total hip arthroplasty done on 10/30/[address] Smart with Kira [facility]er at [facility]. History of having anesthesia: Yes. Any reaction from anesthesia in the past: Prior TIA, seeing neuro to clear for surgery. Personal or family history of heart disease: Yes. Plans for care after surgery: over night stay then home, family care. Currently taking a blood thinner: NSAIDs. History of having a blood transfusion: No. Patient denies chest pain, SOB, dizziness, palpitations, fever, or recent sickness. Labs, chest xray, EKG to be obtained. Her medications were reviewed today and her list is now up to date. Medications Current Outpatient Medications Medication Sig aspirin, enteric coated (ASPIRIN, ENTERIC COATED) 81 mg EC tablet Take 81 mg by mouth once daily. tiotropium bromide (SPIRIVA WITH HANDIHALER INHALATION) Inhale 2 Puffs as instructed daily at bedtime. benzonatate (TESSALON PERLE) 100 mg capsule Take 2 capsules by mouth every morning. dicyclomine (BENTYL) 20 mg tablet Take 1 tablet by mouth twice daily. Acetaminophen 500 mg cap Take 1,000 mg by mouth as needed. albuterol (PROVENTIL) 2.5 mg /3 mL (0.083 %) nebulizer solution Inhale 2.5 mg as instructed every 6 hours as needed. albuterol HFA (PROVENTIL HFA, VENTOLIN HFA) 90 mcg/actuation inhaler Inhale 2 Puffs as instructed every 6 hours as needed. ARIPiprazole (ABILIFY) 5 mg tablet Take 1 tablet by mouth once daily. budesonide-formoterol (SYMBICORT) 160-4.5 mcg/actuation inhaler Inhale 2 Puffs as instructed as needed. Cholecalciferol, Vitamin D3, 25 mcg (1,000 unit) cap Take 1 capsule by mouth once daily. diazePAM (VALIUM) 5 mg tablet Take 1 tablet by mouth as needed. diclofenac, EC, (VOLTAREN) 75 mg EC tablet Take 1 tablet by mouth once daily. HYDROcodone-acetaminophen (NORCO) 5-325 mg per tablet Take 1 tablet by mouth twice daily. levothyroxine (SYNTHROID) 75 mcg tablet Take 88 mcg by mouth once daily. methocarbamol (ROBAXIN) 750 mg tablet Take 1 tablet by mouth twice daily. montelukast (SINGULAIR) 10 mg tablet Take 1 tablet by mouth as directed. omeprazole (PRILOSEC) 40 mg capsule Take 1 capsule by mouth twice daily. promethazine (PHENERGAN) 25 mg tablet Take 1 tablet by mouth as needed. sertraline (ZOLOFT) 100 mg tablet Take 100 mg by mouth once daily. simvastatin (ZOCOR) 40 mg tablet Take 1 tablet by mouth once daily. traZODone (DESYREL) 150 mg tablet Take 2 tablets by mouth once daily. EPINEPHrine 1 mg/mL injection Inject 1 mL intramuscularly as needed. gabapentin (NEURONTIN) 300 mg capsule Take 1 capsule by mouth three times daily. WALKER ROLLATOR SEAT WITH 6 WHEELS - RED Rollator walker, please send to [facility] No current facility-administered medications for this visit. ALLERGIES Allergen Reactions [place] Unknown Depakote [Divalproe* Unknown Dilantin [Phenytoin] Unknown Ditropan [Oxybutyni* Unknown Influenza Virus Vac* Unknown Latex, Natural Rubb* Unknown Meloxicam (Bulk) Unknown Pravastatin Unknown Propofol Unknown Tetracycline Hcl (B* Unknown Tramadol Unknown Tylenol #3 [Codeine] Unknown Venom-Honey Bee Unknown ACTIVE PROBLEM LIST Chronic Obstructive Pulmonary Disease (Hcc) - 08/29/2022 Hyperlipidemia - 08/29/2022 Gastroesophageal Reflux Disease Without Esophagitis - 08/29/2022 Ptsd (Post-Traumatic Stress Disorder) - 08/29/2022 Major Depressive Disorder - 08/29/2022 Anxiety - 08/29/2022 Hypothyroidism - 08/29/2022 Vitamin D Deficiency - 08/29/2022 Scoliosis - 08/29/2022 Right Hip Pain - 08/29/2022 Femoral Loosening of Prosthetic Right Hip, Subsequent Encounter - 05/08/2022 Thyroid Nodule - 04/10/2022 Comment: 04/10/22: Multiple thyroid nodules found on US 12/22/21 (results reviewed and scanned to chart). Lesion in lower pole of right gland 1.4 cm, TR 4; recommended f/u in 1 year. Lesion at the lower pole of the left lobe 2.7 cm, TR 3; recommended FNA; ordered Social History Tobacco Use Smoking status: Never Smokeless tobacco: Never Vaping Use Vaping Use: Never used Substance Use Topics Alcohol use: Never Drug use: Never Review of Systems Constitutional: Negative. Eyes: Negative for visual disturbance. Respiratory: Negative for chest tightness and shortness of breath. Cardiovascular: Negative for chest pain, palpitations and leg swelling. Neurological: Positive for weakness. Negative for seizures, syncope, facial asymmetry and speech difficulty. OBJECTIVE BP 100/64 Pulse 55 Ht 5' 5 (1.65m) Wt 171 lb (77.6kg) SpO2 98% BMI 28.46 kg/(m^2). Physical Exam Vitals and nursing note reviewed. Constitutional: General: She is awake. She is not in acute distress. Appearance: She is well-developed and well-groomed. She is not ill-appearing, toxic-appearing or diaphoretic. HENT: Head: Normocephalic. Eyes: General: Vision grossly intact. Conjunctiva/sclera: Conjunctivae normal. Pupils: Pupils are equal, round, and reactive to light. Neck: Vascular: No carotid bruit or JVD. Cardiovascular: Rate and Rhythm: Normal rate and regular rhythm. Heart sounds: Normal heart sounds. No murmur heard. Pulmonary: Effort: Pulmonary effort is normal. No accessory muscle usage, prolonged expiration or respiratory distress. Breath sounds: Normal breath sounds. Musculoskeletal: Cervical back: Normal range of motion and neck supple. Skin: General: Skin is warm and dry. Capillary Refill: Capillary refill takes less than 2 seconds. Neurological: General: No focal deficit present. Mental Status: She is alert and oriented to person, place, and time. Mental status is at baseline. Cranial Nerves: No cranial nerve deficit. Sensory: No sensory deficit. Motor: Weakness (right side, lower extremity) present. Psychiatric: Attention and Perception: Attention and perception normal. Mood and Affect: Mood normal. Speech: Speech normal. Behavior: Behavior normal. Behavior is cooperative. Thought Content: Thought content normal. Judgment: Judgment normal. ASSESSMENT/PLAN: 1. Femoral loosening of prosthetic right hip, subsequent encounter - ICD9: V58.89, 996.41, ICD10: T84.030D (primary diagnosis) scheduled to have a posterior revision right total hip arthroplasty done on 10/30/[address] Smart with Kira Huber at [facility]. 2. Pre-op exam - ICD9: V72.84, ICD10: Z01.818 Based on physical exam done at today's visit patient is cleared for surgery from a primary care standpoint PENDING that she is cleared by neurology with her appointment on 10/03 and that her labs, cxr, and ekg are stable. - ECG COMPLETE - CBC - COMP METABOLIC PANEL - XR CHEST 2V FRONTAL/LAT 3. Chronic obstructive pulmonary disease, unspecified COPD type (HCC) - ICD9: 496, ICD10: J44.9 Stable, well controlled. 4. Hyperlipidemia, unspecified hyperlipidemia type - ICD9: 272.4, ICD10: E78.5 - Fair control - Continue current medication. - Encouraged following a low fat, low cholesterol diet. - Discussed the benefits of regular aerobic exercise and weight loss. - Encouraged following a low carbohydrate, healthy oil intake diet. 5. Hypothyroidism, unspecified type - ICD9: 244.9, ICD10: E03.9 - Instructed patient on importance of taking on an empty stomach either first thing in the morning or at bedtime. 6. Thyroid nodule - ICD9: 241.0, ICD10: E04.1 Biopsy scheduled for today 7. Major depressive disorder, remission status unspecified, unspecified whether recurrent - ICD9: 296.20, ICD10: F32.[address] Ashraf Portions of this note have been entered by ancillary staff. I have reviewed and when necessary edited, so that they are an adequate record of my encounter with this patient Please note that parts of this document were created using voice recognition software and therefore may contain grammatical errors. Patient verbalizes understanding of instructions from today's visit and in agreement with treatment plan. Questions answered. Agrees to call the office if questions, concerns of issues with acute symptoms not improving or if they worsen. See diagnoses and orders for additional plan(s). Allergies and medications were reviewed, list was updated, and refills given if needed. Past medical, surgical, social, and family history reviewed and updated as appropriate. Encouraged proper diet & exercise as well as compliance with taking medications. Age-appropriate health preventative measures were discussed. Medical Decision Making: Problems: Moderate: 2+ stable chronic illnesses Data: Unique test(s) ordered: 3+ Medical Decision Making Level: 4 - Moderate Return in about 3 months (around 12/23/2022) for Follow up on chronic conditions and medications.. Doreen Oliver APRN-WHITNEY documented in this encounter [facility] 09-19-2022 Miscellaneous Notes Fax received from [facility] [employer] stating that they do no carry the shower grab bars. Patient notified of same. Order faxed to [facility] per patients request. Unsure if available there but will check. documented in this encounter [facility] 09-18-2022 History of Presen t illness Narrative HISTORY AND PHYSICAL Lea Gomez 1955 REFERRING PHYSICIAN: Doreen Oliver APRN.CNP CHIEF COMPLAINT: Consult (Abnormal thyroid ultrasound) HPI: The patient is a 67 year old female with a complaint of a bilateral thyroid nodule. This thyroid nodule was found on Ultrasound by [facility]. The patient denies pain, denies difficulty swallowing, deniesrapid enlargement of the neck, deniesdysphagia, denies a change in the voice, denies hot or cold intolerence. The patient has not a prior history of neck radiation treatment. The patient is being seen by me today at the request of Dr. Oliver for my opinion and advice regarding Multinodular goiter (primary encounter diagnosis) Hypothyroidism, unspecified type. 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 tiotropium bromide (SPIRIVA WITH HANDIHALER INHALATION) Inhale 2 Puffs as instructed daily at bedtime. lysine (L-LYSINE) 500 mg tab Take 1,000 mg by mouth daily at bedtime. codeine phosphate/guaifenesin (GUAIFENESIN AC EXPECTORANT ORAL) Take 400 mg by mouth twice daily. As needed benzonatate (TESSALON PERLE) 100 mg capsule Take 2 capsules by mouth every morning. 60 capsule 0 dicyclomine (BENTYL) 20 mg tablet Take 1 tablet by mouth twice daily. 60 tablet 2 Acetaminophen 500 mg cap Take 1,000 mg by mouth as needed. albuterol (PROVENTIL) 2.5 mg /3 mL (0.083 %) nebulizer solution Inhale 2.5 mg as instructed every 6 hours as needed. albuterol HFA (PROVENTIL HFA, VENTOLIN HFA) 90 mcg/actuation inhaler Inhale 2 Puffs as instructed every 6 hours as needed. ARIPiprazole (ABILIFY) 5 mg tablet Take 1 tablet by mouth once daily. budesonide-formoterol (SYMBICORT) 160-4.5 mcg/actuation inhaler Inhale 2 Puffs as instructed as needed. Cholecalciferol, Vitamin D3, 25 mcg (1,000 unit) cap Take 1 capsule by mouth once daily. diazePAM (VALIUM) 5 mg tablet Take 1 tablet by mouth as needed. diclofenac, EC, (VOLTAREN) 75 mg EC tablet Take 1 tablet by mouth once daily. EPINEPHrine 1 mg/mL injection Inject 1 mL intramuscularly as needed. gabapentin (NEURONTIN) 300 mg capsule Take 1 capsule by mouth three times daily. HYDROcodone-acetaminophen (NORCO) 5-325 mg per tablet Take 1 tablet by mouth twice daily. levothyroxine (SYNTHROID) 75 mcg tablet Take 88 mcg by mouth once daily. methocarbamol (ROBAXIN) 750 mg tablet Take 1 tablet by mouth twice daily. montelukast (SINGULAIR) 10 mg tablet Take 1 tablet by mouth as directed. omeprazole (PRILOSEC) 40 mg capsule Take 1 capsule by mouth twice daily. potassium chloride ER (K-DUR, KLOR-CON) 20 mEq tablet Take 20 mEq by mouth once daily. prazosin (MINIPRESS) 1 mg cap Take 1 capsule by mouth once daily. promethazine (PHENERGAN) 25 mg tablet Take 1 tablet by mouth as needed. sertraline (ZOLOFT) 100 mg tablet Take 100 mg by mouth once daily. simvastatin (ZOCOR) 40 mg tablet Take 1 tablet by mouth once daily. traZODone (DESYREL) 150 mg tablet Take 2 tablets by mouth once daily. acetaminophen 325 mg-caffeine 40 mg-butalbital 50 mg (FIORICET) per tablet Take 1 tablet by mouth as needed. (Patient not taking: Reported on 09/18/2022) No current facility-administered medications for this visit. ALLERGIES: [place]; Depakote [Divalproex]; Dilantin [Phenytoin]; Ditropan [Oxybutynin]; Influenza Virus Vaccines; Latex, Natural Rubber; Meloxicam (Bulk); Pravastatin; Propofol; Tetracycline Hcl (Bulk); Tramadol; Tylenol #3 [Codeine]; and Venom-Honey Bee PERSONAL HISTORY: Social History Tobacco Use Smoking status: Never Smokeless tobacco: Never Vaping Use Vaping Use: Never used Substance Use Topics Alcohol use: Never Drug use: Never FAMILY HISTORY: FAMILY HISTORY Adopted: Yes REVIEW OF SYMPTOMS: The review of systems data was entered by the nurse and reviewed by tx Nursing Notes: Mary Ann Fajardo RN 09/18/2022 10:18 AM Signed REVIEW OF SYSTEMS: General: The patient NOTES fatigue, denies weight loss, denies weight gain, denies feeling hot, and NOTES feelings of cold. Eyes: The patient NOTES glaucoma, NOTES eye injury/surgery, wears glasses or contacts. Ear/Nose/Throat: The patient NOTES allergies, NOTES hayfever, denies ear infections, and denies bloody noses. Cardiovascular: The patient denies chest pain, denies heart disease, denies high blood pressure,denies cardiac stent, NOTES prior heart attack, denies irregular heart beat, denies high cholesterol, denies poor circulation, NOTES heart failure, other cardiac issues, denies claudication, NOTES cold feet, denies peripheral arterial stent. Respiratory: The patient denies tuberculosis, denies pneumonia, NOTES frequent cough, denies pulmonary embolism, denies shortness of breath, and denies coughing up blood. Gastrointestinal: The patient NOTES difficulty swallowing, denies acid reflux, denies ulcers, denies vomiting, denies jaundice/hepatitis, NOTES gallbladder problems, denies black or tarry stools, denies hemorrhoids, denies bleeding from rectum, denies diverticulitis, denies constipation, NOTES diarrhea, denies loss of stool control, and denies hernias. Kidney/Bladder: The patient denies kidney stones, denies urine infections, and denies bloody urine. Skin: The patient denies a history of skin cancer, denies bleeding/changing moles, and denies a history of skin rash. Neurologic: The patient NOTES a history of epilepsy/convulsions, NOTES headaches, NOTES head/spinal injuries, and NOTES stroke/TIA. Psychiatric: The patient NOTES psychiatric medications, NOTES depression, and denies voices, denies substance abuse. Endocrine: The patient NOTES thyroid disorders, denies diabetes, and denies hormonal problems. Hematologic: The patient NOTES a history of bruising, denies bleeding, and denies anemia, denies blood clots. Infections: The patient denies a history of measles and mumps, denies rheumatic fever, and denies sexually transmitted diseases. Musculoskeletal: The patient NOTES back pain/injury, NOTES back problems, NOTES sciatica, NOTES knee/foot trouble, NOTES arthritis, or denies gout. When was patient's last Mammogram screening? 2021 Last Colonoscopy: None Mary Ann Fajardo RN PHYSICAL EXAMINATION: General: The patient is 67 year old female, well nourished, well hydrated in no acute distress. The patient is oriented to time, place, and person. VITALS: Blood pressure 98/60, pulse 70, temperature 36.8 C (98.3 F), height 170.2 cm (5' 7 ), weight 77.3 kg (170 lb 6.4 oz), SpO2 98 %. Body mass index is 26.69 kg/m . HEENT: Normal cephalic, ataumatic, pupils are equally round, sclera are anicteric, mucous membranes are moist, oropharynx is clear. Neck has no masses, asymmetry or lymphadenopathy. Thyroid exam no hard palpable nodules are identified. Respiratory: Clear to auscultation and percussion. Normal respiratory excursion and pattern. Cardiac: Examination is regular rate and rhythm. Abdominal exam: Soft, nontender, with no palpable masses. No hepatosplenomegaly. No palpable hernias. Rectal exam: exam deferred Extremities: no clubbing, cyanosis or edema. No adenopathy. Other: LABORATORY VALUES: As Noted RADIOLOGIC STUDIES: NODULE 1: Location: Right upper pole Size: 0.6 x 0.5 x 0.4 cm Characteristics: Composition: Mixed cystic and solid, 1 point Echogenicity: Hypoechoic, 2 points Shape: [id number], 0 points Margin: Smooth, 0 points Echogenic foci (add points for all that apply): None, 0 points Internal vascularity: present Interval growth: No prior available for comparison TI-RADS Category: TR3 ACR Recommendation: TI-RADS 3 nodule. No FNA or further imaging is advised. NODULE 2: Location: Right mid Size: 1.6 x 1.4 x 0.9 cm Characteristics: Composition: Mixed cystic and solid, 1 point Echogenicity: Isoechoic, 1 point Shape: [id number], 0 points Margin: Smooth, 0 points Echogenic foci (add points for all that apply): Punctate echogenic foci, 3 points Internal vascularity: present Interval growth: No prior available for comparison TI-RADS Category: TR4 ACR Recommendation: TI-RADS 4 nodule. FNA is recommended. NODULE 3: Location: Right lower pole Size: 1 x 1.3 x 1 cm Characteristics: Composition: Solid or almost completely solid, 2 points Echogenicity: Isoechoic, 1 point Shape: [id number], 0 points Margin: Smooth, 0 points Echogenic foci (add points for all that apply): Punctate echogenic foci, 3 points Internal vascularity: present Interval growth: No prior available for comparison TI-RADS Category: TR4 ACR Recommendation: TI-RADS 4 nodule. Follow up imaging in 1, 2, 3 and 5 years is advised. NODULE 4: Location: Left lower pole Size: 2.2 x 2.1 x 1.7 cm Characteristics: Composition: Solid or almost completely solid, 2 points Echogenicity: Isoechoic, 1 point Shape: [id number], 0 points Margin: Smooth, 0 points Echogenic foci (add points for all that apply): None, 0 points Internal vascularity: present Interval growth: No prior available for comparison TI-RADS Category: TR3 ACR Recommendation: TI-RADS 3 nodule. Follow-up imaging at 1, 3 and 5 years is recommended. Assessment IMPRESSION: NODULE - bilateral THYROID PLAN: I plan to perform an FNAC of the right Thyroid. Diagnoses: (E04.2) Multinodular goiter (primary encounter diagnosis) (E03.9) Hypothyroidism, unspecified type My findings have been communicated to Dr. Oliver via shared medical record. This note will be forwarded to Dr. Doreen Oliver APRN.TELECOMMUNICATIONS CLERK. Return to Clinic: The patient is instructed to follow-up with me 1 week post operatively. Roosevelt Cardona III, MD documented in this encounter [facility] 09-18-2022 Miscellaneous Notes Order faxed to [employer] and patient notified of same. Order printed, please send to [facility] once I sign. Thanks Pt called in and reports she needs order for an Rollator walker through [facility]. She states she talked with her insurance and they were ok with it. She states she already uses a walker, but she keeps getting tripped up on it and it only has the small wheels in the front. She states it doesn't help with her mobility or balance. She used a Rollator some where and she said it worked really well for her. documented in this encounter [facility] 09-18-2022 Nurse Note REVIEW OF SYSTEMS: General: The patient NOTES fatigue, denies weight loss, denies weight gain, denies feeling hot, and NOTES feelings of cold. Eyes: The patient NOTES glaucoma, NOTES eye injury/surgery, wears glasses or contacts. Ear/Nose/Throat: The patient NOTES allergies, NOTES hayfever, denies ear infections, and denies bloody noses. Cardiovascular: The patient denies chest pain, denies heart disease, denies high blood pressure,denies cardiac stent, NOTES prior heart attack, denies irregular heart beat, denies high cholesterol, denies poor circulation, NOTES heart failure, other cardiac issues, denies claudication, NOTES cold feet, denies peripheral arterial stent. Respiratory: The patient denies tuberculosis, denies pneumonia, NOTES frequent cough, denies pulmonary embolism, denies shortness of breath, and denies coughing up blood. Gastrointestinal: The patient NOTES difficulty swallowing, denies acid reflux, denies ulcers, denies vomiting, denies jaundice/hepatitis, NOTES gallbladder problems, denies black or tarry stools, denies hemorrhoids, denies bleeding from rectum, denies diverticulitis, denies constipation, NOTES diarrhea, denies loss of stool control, and denies hernias. Kidney/Bladder: The patient denies kidney stones, denies urine infections, and denies bloody urine. Skin: The patient denies a history of skin cancer, denies bleeding/changing moles, and denies a history of skin rash. Neurologic: The patient NOTES a history of epilepsy/convulsions, NOTES headaches, NOTES head/spinal injuries, and NOTES stroke/TIA. Psychiatric: The patient NOTES psychiatric medications, NOTES depression, and denies voices, denies substance abuse. Endocrine: The patient NOTES thyroid disorders, denies diabetes, and denies hormonal problems. Hematologic: The patient NOTES a history of bruising, denies bleeding, and denies anemia, denies blood clots. Infections: The patient denies a history of measles and mumps, denies rheumatic fever, and denies sexually transmitted diseases. Musculoskeletal: The patient NOTES back pain/injury, NOTES back problems, NOTES sciatica, NOTES knee/foot trouble, NOTES arthritis, or denies gout. When was patient's last Mammogram screening? 2021 Last Colonoscopy: None Mary Ann Fajardo RN documented in this encounter [facility] 09-13-2022 History of Presen t illness Narrative Radiology Service Progress Note PATIENT NAME: Lea Gomez DATE OF SERVICE: September 13, 2022 TIME: 12:04 PM PATIENT IDENTITY VERIFICATION COMPLETED USING TWO (2) IDENTIFIERS: Name and Date of confirmed by patient verbally. FALL SCREENING: Has the patient had 2 falls in the last year or 1 fall with injury or currently using an Ambulatory Assistive Device (Walker, Cane, Wheelchair, Crutches, etc.)? Yes, Patient High Risk for Falls What interventions were put in place to prevent falls during this visit? Instructed Patient to Call for Help if Needed, Offered Assistance with Transfers/Clothing, Instructed Patient to Remain Seated (Not on Exam Table) Until Exam, and Increased Observations by Caregivers PATIENT GENDER DATA: Female. status: : No status: NO. PATIENT RELEVANT IMPLANT DATA REVIEWED: Not Applicable RADIOLOGY DEPARTMENT: Ultrasound PERIPHERAL IV DATA: Not applicable SIGNED BY: Jennifer Garcia RDMS RVT September 13, 2022 12:04 PM documented in this encounter [facility] 09-10-2022 Miscellaneous Notes Patient contacted and scheduled 09/13 for Ultrasound. Jennifer Castro Pss I have ordered the ultrasound, please let her know. Thanks! Pt called and is notified of providers message. Pt reports she only had an x-ray and it was about a year ago. Pt was agreeable to getting US done. Please call Pt once placed. Karon Davis RN Can we return her call and see if she ever had an ultrasound of they thyroid done or only an xray? Also how recent was this? I would recommend we get a new ultrasound done to see if this is the case then that will help guide if we need to send her to ENT or general surgery. Will order an ultrasound if okay with patient. Patient calls to report she forgot to mention at previous appointment with provider, while she lived in [place] she had an x-ray completed that showed she had an enlarged thyroid and she was told at that time she needed to have the area biopsied. Patient is requesting a referral to ENT. Patient reports that her PCP in [place] is the one that ordered x-ray but had no recollection of the provider's name to request medical records. Patient aware that provider would be notified and further instruction would be advised. Nothing pended at this time. Cyn Arguello RN documented in this encounter [facility] 09-05-2022 Miscellaneous Notes Patient aware script ready for fruit or nut picker in medical records office on first floor any time tomorrow. Order signed. Patient calls to request a written order for shower wall bars so she can have them installed. She said she would pick the order up once it is written in medical records. Pended. Needs diagnosis. Patient's call back number is [phone]. Cyn Arguello RN documented in this encounter [facility] 09-05-2022 Miscellaneous Notes Last office visit: 08/29/22 Next appointment scheduled: 09/24/22 Patient phones requesting refills as follows: Requested Prescriptions Pending Prescriptions Disp Refills benzonatate (TESSALON PERLE) 100 mg capsule Sig: Take 2 capsules by mouth every morning. dicyclomine (BENTYL) 20 mg tablet Sig: Take 1 tablet by mouth twice daily. Please review and advise. Veronica Riley LPN Patient has been identified by name and date of : Yes Requested Prescriptions Pending Prescriptions Disp Refills benzonatate (TESSALON PERLE) 100 mg capsule Sig: Take 2 capsules by mouth every morning. dicyclomine (BENTYL) 20 mg tablet Sig: Take 1 tablet by mouth twice daily. RX INSTRUCTIONS: Patient aware RX will be sent to pharmacy. No need to notify patient. Arlni Newman documented in this encounter [facility] 08-30-2022 Miscellaneous Notes Patient calls to request pain management referral be sent to Dr. Santoyo. Faxed to [phone] per patient request. Cyn Arguello RN documented in this encounter [facility] 08-29-2022 History of Presen t illness Narrative POPULATION HEALTH NAVIGATION OUTREACH Action/[facility] Support: Called pt to schedule an appt in Pain Management. See's provider closer to home Pt identified by name and : YES, via phone Outreach Outcome/Action Spoke to patient or caregiver: Patient declined Did you use a PCP flex slot to schedule this appointment? No Reason for Outreach Care Gap or Scheduling/Wellness visits Payer: Payor: [employer] MEDICARE / Plan: [employer] PLUS / Product Type: HMO / Care Gap Reviewed:: Specialty Scheduling Reminder: Reminder note to check Health Maintenance for items below Health Maintenance items due: COVID-19 VACCINE(1) Never done PNEUMOCOCCAL: 65+(1 - PCV) Never done SPIROMETRY Never done HEPATITIS C SCREENING Never done ALPHA-1 ANTITRYPSIN DEFICIENCY SCREENING Never done MAMMOGRAM Never done LIPID SCREEN Never done COLORECTAL CANCER SCREENING Never done SHINGRIX VACCINE(1 of 2) Never done BONE DENSITY Never done ADVANCE DIRECTIVE DISCUSSION Never done INFLUENZA(1) Never done Navigation Signature: Kami Diaz August 29, 2022 11:23 AM documented in this encounter [facility] 08-29-2022 History of Presen t illness Narrative SUBJECTIVE Lea Gomez is a 67 year old female here today to establish care. Chief Complaint Patient presents with: Establish Care Consult: to neurology due to recent strokes about 10 weeks ago 2 TIA's within 1 week HPI Lea Gomez is a 67 year old female who presents today to establish care. Prior PCP was Dr. Deng, saw her recently but wants to switch to our office. Recently moved from [place] about 12 weeks ago. Significant medical history of COPD, well controlled, not using inhalers or nebulizer. Symbicort as needed. Vitamin d def. Scoliosis. Hypothyroid. Sleeping well once falls asleep, some issues falling asleep. Anxiety and depression. , PTSD, 2 years in [place], also served in [employer] [facility], [place] and [place]. 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 Other history of hyperlipidemia. Right hip issues, needs replaced. GERD. Recently had a TIA/Stroke? Other providers Orthopaedics, [facility], wants to do surgery as soon as possible due to loosening of hardware. Dr. Ashraf mental health Dr. Chávez cardiology Needs referrals to pain management and to neurology. Her medications were reviewed today and her list is now up to date. Medications Current Outpatient Medications Medication Sig Acetaminophen 500 mg cap Take 1,000 mg by mouth as needed. albuterol HFA (PROVENTIL HFA, VENTOLIN HFA) 90 mcg/actuation inhaler Inhale 2 Puffs as instructed every 6 hours as needed. ARIPiprazole (ABILIFY) 5 mg tablet Take 1 tablet by mouth once daily. benzonatate (TESSALON PERLE) 100 mg capsule Take 2 capsules by mouth every morning. diazePAM (VALIUM) 5 mg tablet Take 1 tablet by mouth as needed. diclofenac, EC, (VOLTAREN) 75 mg EC tablet Take 1 tablet by mouth once daily. levothyroxine (SYNTHROID) 75 mcg tablet Take 88 mcg by mouth once daily. methocarbamol (ROBAXIN) 750 mg tablet Take 1 tablet by mouth twice daily. montelukast (SINGULAIR) 10 mg tablet Take 1 tablet by mouth as directed. omeprazole (PRILOSEC) 40 mg capsule Take 1 capsule by mouth twice daily. potassium chloride ER (K-DUR, KLOR-CON) 20 mEq tablet Take 20 mEq by mouth once daily. prazosin (MINIPRESS) 1 mg cap Take 1 capsule by mouth once daily. simvastatin (ZOCOR) 40 mg tablet Take 1 tablet by mouth once daily. traZODone (DESYREL) 150 mg tablet Take 2 tablets by mouth once daily. albuterol (PROVENTIL) 2.5 mg /3 mL (0.083 %) nebulizer solution Inhale 2.5 mg as instructed every 6 hours as needed. budesonide-formoterol (SYMBICORT) 160-4.5 mcg/actuation inhaler Inhale 2 Puffs as instructed as needed. acetaminophen 325 mg-caffeine 40 mg-butalbital 50 mg (FIORICET) per tablet Take 1 tablet by mouth as needed. Cholecalciferol, Vitamin D3, 25 mcg (1,000 unit) cap Take 1 capsule by mouth once daily. dicyclomine (BENTYL) 20 mg tablet Take 20 mg by mouth twice daily. EPINEPHrine 1 mg/mL injection Inject 1 mL intramuscularly as needed. gabapentin (NEURONTIN) 300 mg capsule Take 1 capsule by mouth three times daily. HYDROcodone-acetaminophen (NORCO) 5-325 mg per tablet Take 1 tablet by mouth twice daily. promethazine (PHENERGAN) 25 mg tablet Take 1 tablet by mouth as needed. sertraline (ZOLOFT) 100 mg tablet Take 100 mg by mouth once daily. No current facility-administered medications for this visit. ALLERGIES Not on File ACTIVE PROBLEM LIST Chronic Obstructive Pulmonary Disease (Hcc) - 08/29/2022 Hyperlipidemia - 08/29/2022 Gastroesophageal Reflux Disease Without Esophagitis - 08/29/2022 Ptsd (Post-Traumatic Stress Disorder) - 08/29/2022 Major Depressive Disorder - 08/29/2022 Anxiety - 08/29/2022 Hypothyroidism - 08/29/2022 Vitamin D Deficiency - 08/29/2022 Scoliosis - 08/29/2022 Right Hip Pain - 08/29/2022 Femoral Loosening of Prosthetic Right Hip, Subsequent Encounter - 05/08/2022 Thyroid Nodule - 04/10/2022 Comment: 04/10/22: Multiple thyroid nodules found on US 12/22/21 (results reviewed and scanned to chart). Lesion in lower pole of right gland 1.4 cm, TR 4; recommended f/u in 1 year. Lesion at the lower pole of the left lobe 2.7 cm, TR 3; recommended FNA; ordered Social History Tobacco Use Smoking status: Never Smokeless tobacco: Never Substance Use Topics Alcohol use: Never Drug use: Never Review of Systems Respiratory: Negative. Cardiovascular: Negative. Musculoskeletal: Positive for arthralgias, gait problem and myalgias. OBJECTIVE BP 98/66 Pulse 65 Resp 20 Ht 5' 5 (1.65m) Wt 160 lb (72.6kg) SpO2 98% BMI 26.63 kg/(m^2). Physical Exam Vitals reviewed. Constitutional: General: She is not in acute distress. Appearance: She is not ill-appearing, toxic-appearing or diaphoretic. Cardiovascular: Rate and Rhythm: Normal rate and regular rhythm. Heart sounds: Normal heart sounds. Pulmonary: Effort: Pulmonary effort is normal. No respiratory distress. Breath sounds: Normal breath sounds. Skin: General: Skin is warm and dry. Capillary Refill: Capillary refill takes less than 2 seconds. Neurological: General: No focal deficit present. Mental Status: She is alert and oriented to person, place, and time. Mental status is at baseline. Gait: Gait abnormal. Comments: Using walker to assist with ambulation/gait Psychiatric: Attention and Perception: Attention and perception normal. Mood and Affect: Mood normal. Speech: Speech normal. Behavior: Behavior normal. Thought Content: Thought content normal. Cognition and Memory: Cognition normal. Judgment: Judgment normal. ASSESSMENT/PLAN: 1. Right hip pain - ICD9: 719.45, ICD10: M25.551 (primary diagnosis) Following with Dr. Smart with [facility]. Plans for surgery SHERIE due to loosening of hardware but needs neuro clearance due to recent TIAs. Will refer to neuro and have her seen with whoever can schedule her soonest, discussed likely in [place]. - CONSULT TO PAIN MGT 2. Femoral loosening of prosthetic right hip, subsequent encounter - ICD9: V58.89, 996.41, ICD10: T84.030D 3. TIA (transient ischemic attack) - ICD9: 435.9, ICD10: G45.9 - CONSULT TO NEUROLOGY 4. Scoliosis, unspecified scoliosis type, unspecified spinal region - ICD9: 737.30, ICD10: M41.9 - CONSULT TO PAIN MGT 5. Hyperlipidemia, unspecified hyperlipidemia type - ICD9: 272.4, ICD10: E78.5 - Continue current medication. - Encouraged following a low fat, low cholesterol diet. - Encouraged following a low carbohydrate, healthy oil intake diet. 6. Chronic obstructive pulmonary disease, unspecified COPD type (HCC) - ICD9: 496, ICD10: J44.9 Stable. 7. Vitamin D deficiency - ICD9: 268.9, ICD10: E55.9 8. Hypothyroidism, unspecified type - ICD9: 244.9, ICD10: E03.9 - Instructed patient on importance of taking on an empty stomach either first thing in the morning or at bedtime. 9. Anxiety - ICD9: 300.00, ICD10: F41.9 Stable 10. Major depressive disorder, remission status unspecified, unspecified whether recurrent - ICD9: 296.20, ICD10: F32.9 Stable 11. PTSD (post-traumatic stress disorder) - ICD9: 309.81, ICD10: F43.10 Stable 12. Gastroesophageal reflux disease without esophagitis - ICD9: 530.81, ICD10: K21.9 Stable 13. Encounter to establish care - ICD9: V65.8, ICD10: Z76.89 Will try and get records from other PCP office to update HM, had labs recently. Portions of this note have been entered by ancillary staff. I have reviewed and when necessary edited, so that they are an adequate record of my encounter with this patient Please note that parts of this document were created using voice recognition software and therefore may contain grammatical errors. Patient verbalizes understanding of instructions from today's visit and in agreement with treatment plan. Questions answered. Agrees to call the office if questions, concerns of issues with acute symptoms not improving or if they worsen. See diagnoses and orders for additional plan(s). Allergies and medications were reviewed, list was updated, and refills given if needed. Past medical, surgical, social, and family history reviewed and updated as appropriate. Encouraged proper diet & exercise as well as compliance with taking medications. Age-appropriate health preventative measures were discussed. Return in about 3 months (around 11/27/2022) for Follow up on chronic conditions and medications.. Doreen Oliver APRN-TELECOMMUNICATIONS CLERK documented in this encounter [facility] Evaluation + Plan note No data available for this section [facility] Evaluation + Plan note Future Appointments Appointment Date:03/18/2023 12:45:00 PM Scheduled Provider:IDALMIS DIAZ MD Location:[facility] PM Appointment Type:PM OV [facility] Evaluation + Plan note Future Appointments Appointment Date:04/15/2023 12:30:00 PM Scheduled Provider:IDALMIS DIAZ MD Location:[facility] PM Appointment Type:PM OV [facility] Evaluation + Plan note Future Appointments Appointment Date:05/13/2023 01:15:00 PM Scheduled Provider:IDALMIS DIAZ MD Location:[facility] PM Appointment Type:PM OV [facility] Evaluation + Plan note Future Appointments Appointment Date:06/11/2023 08:00:00 AM Scheduled Provider:KARLA CLARKE Location:[facility] PM Appointment Type:PM OV [facility] Evaluation + Plan note Future Appointments Appointment Date:08/13/2023 09:30:00 AM Scheduled Provider:JEMMA CHAVEZ Location:[facility] PM Appointment Type:PM OV [facility] Evaluation + Plan note Future Appointments Appointment Date:09/11/2023 12:00:00 PM Scheduled Provider:KARLA CLARKE Location:[facility] PM Appointment Type:PM OV [facility] Evaluation + Plan note Future Appointments Appointment Date:10/16/2023 10:45:00 AM Scheduled Provider:KARLA CLARKE Location:[facility] PM Appointment Type:PM OV [facility] Diagnosis TIA (transient ischemic attack)- Primary Unspecified transient cerebral ischemia Femoral loosening of prosthetic right hip, subsequent encounter Scoliosis, unspecified scoliosis type, unspecified spinal region [facility]* Diagnosis Hypothyroidism, unspecified type- Primary Abnormal imaging of thyroid documented in this encounter [facility] note* Diagnosis Hyperlipidemia Other and unspecified hyperlipidemia Hypothyroidism Unspecified hypothyroidism documented in this encounter [facility] note* Diagnosis TIA (transient ischemic attack)- Primary Unspecified transient cerebral ischemia Femoral loosening of prosthetic right hip, subsequent encounter Scoliosis, unspecified scoliosis type, unspecified spinal region [facility] Diagnosis Multinodular goiter- Primary Nontoxic multinodular goiter Hypothyroidism, unspecified type documented in this encounter [facility] note* Diagnosis Femoral loosening of prosthetic right hip, subsequent encounter- Primary Pre-op exam Preoperative examination, unspecified Chronic obstructive pulmonary disease, unspecified COPD type (HCC) Hyperlipidemia, unspecified hyperlipidemia type Hypothyroidism, unspecified type Thyroid nodule Nontoxic uninodular goiter Major depressive disorder, remission status unspecified, unspecified whether recurrent documented in this encounter [facility] note* Diagnosis Multinodular goiter- Primary Nontoxic multinodular goiter documented in this encounter [facility] note* Diagnosis Anemia, unspecified type- Primary Low sodium levels Hyposmolality and/or hyponatremia documented [facility]* Diagnosis TIA (transient ischemic attack)- Primary Unspecified transient cerebral ischemia Poor short term memory Memory loss documented in this encounter [facility] note* Diagnosis TIA (transient ischemic attack)- Primary Unspecified transient cerebral ischemia Femoral loosening of prosthetic right hip, subsequent encounter [facility]* Diagnosis Femoral loosening of prosthetic right hip, subsequent encounter- Primary Chronic post-operative pain documented [facility]* Diagnosis Femoral loosening of prosthetic right hip, subsequent encounter- Primary Right hip pain Pain in joint, pelvic region and thigh Chronic post-operative pain Anemia, unspecified type Nonintractable episodic headache, unspecified headache type TIA (transient ischemic attack) Unspecified transient cerebral ischemia Nausea Nausea alone Chronic obstructive pulmonary disease, unspecified COPD type (HCC) Encounter for screening mammogram for breast cancer [facility] Diagnosis Abnormal mammogram- Primary Abnormal mammogram, unspecified [facility] Diagnosis Plantar wart of left foot- Primary Plantar wart Limitation of activities due to disability Other ill-defined conditions Scoliosis, unspecified scoliosis type, unspecified spinal region Right hip pain Pain in joint, pelvic region and thigh Femoral loosening of prosthetic right hip, subsequent encounter Chronic obstructive pulmonary disease, unspecified COPD type (HCC) [facility] Diagnosis Bee sting allergy- Primary Allergy to insects and arachnids [facility] Diagnosis Abnormal finding on breast imaging- Primary Other (abnormal) findings on radiological examination of breast [facility] Diagnosis Limitation of activities due to disability- Primary Other ill-defined conditions Femoral loosening of prosthetic right hip, subsequent encounter Chronic obstructive pulmonary disease, unspecified COPD type (HCC) TIA (transient ischemic attack) Unspecified transient cerebral ischemia [facility] Diagnosis Acute pain of left knee- Primary Fall, subsequent encounter [facility]* Diagnosis Cat bite, initial encounter- Primary [facility] Diagnosis Recent weight gain- Primary Class 1 obesity due to excess calories with serious comorbidity and body mass index (BMI) of 32.0 to 32.9 in adult Hypothyroidism, unspecified type Iron deficiency Iron deficiency anemia, unspecified Encounter for therapeutic drug monitoring [facility]* Diagnosis Class 1 obesity due to excess calories with serious comorbidity and body mass index (BMI) of 32.0 to 32.9 in adult- Primary Recent weight gain Nausea Nausea alone [facility]* Diagnosis Hypothyroidism, unspecified type Abnormal imaging of thyroid [facility]* Diagnosis Abnormal mammogram Abnormal mammogram, unspecified [facility]* Diagnosis Abnormal mammogram Abnormal mammogram, unspecified [facility]* Diagnosis Encounter for screening mammogram for breast cancer [facility] Diagnosis Hyperlipidemia Other and unspecified hyperlipidemia [facility]* Diagnosis COPD with exacerbation (HCC)- Primary Obstructive chronic bronchitis with exacerbation [facility] Diagnosis COPD with exacerbation (HCC) Obstructive chronic bronchitis with exacerbation documented in this encounter [facility] note* Diagnosis COPD with exacerbation (HCC)- Primary Obstructive chronic bronchitis with exacerbation Class 1 obesity due to excess calories with serious comorbidity and body mass index (BMI) of 32.0 to 32.9 in adult documented in this encounter [facility] note* Diagnosis Recent weight gain Class 1 obesity due to excess calories with serious comorbidity and body mass index (BMI) of 32.0 to 32.9 in adult documented in this encounter [facility] note* Diagnosis Chronic obstructive pulmonary disease with acute exacerbation (HCC)- Primary Obstructive chronic bronchitis with exacerbation documented in this encounter [facility] note* Diagnosis Femoral loosening of prosthetic right hip, subsequent encounter- Primary Right hip pain Pain in joint, pelvic region and thigh Frequent falls Personal history of fall Scoliosis, unspecified scoliosis type, unspecified spinal region documented in this encounter [facility] note* Diagnosis Chronic bronchitis, unspecified chronic bronchitis type (HCC)- Primary documented in this encounter [facility] note* Diagnosis Bilateral leg edema- Primary Edema Abnormal urine Other nonspecific finding on examination of urine Hypotension, unspecified hypotension type documented in this encounter [facility] Discharge instructions No data available for this section [facility] Progress note No data available for this section [facility] Reason for referral (narrative)* Diagnostic Procedure Only (Routine) - Authorized Specialty Diagnoses / Procedures Referred By Jay alvarez Referred To Contact [facility] Diagnoses Hypothyroidism, unspecified type Abnormal imaging of thyroid Procedures US THYROID/PARATHYROID US SOFT TISSUE HEAD & NECK REAL TIME IMGE DOCM Doreen Oliver APRN.CNP [address] [place] [address] [facility] Referral ID Status Reason Start Date Expiration Date Visits Requested Visits Authorized [id number] Authorized Auto-Generat ed Referral 09/10/2022 10/10/2023 1 1 [facility] Outpatient Procedure (Routine) - Pending Review Specialty Diagnoses / Procedures Referred By Jay alvarez Referred To [facility] Diagnoses Pre-op exam Procedures ECG COMPLETE ECG ROUTINE ECG W/LEAST 12 LDS W/I&R Doreen Oliver APRN.CNP [address] [place] [address] [facility] [place] [address] [place] [address] Referral ID Status Reason Start Date Expiration Date Visits Requested Visits Authorized [id number] Pending Review Auto-Generat ed Referral 09/24/2022 09/24/2023 1 1 [facility] for referral (narrative)* Diagnostic Procedure Only (Routine) - Pending Review Specialty Diagnoses / Procedures Referred By Jay alvarez Referred To Contact [facility] Diagnoses Encounter for screening mammogram for breast cancer Procedures BLACK SCREENING SCREENING MAMMOGRAPHY BI 2-VIEW BREAST INC CAD Doreen Oliver APRN.CNP [address] [place] [address] [facility] [address] [place] [address] Referral ID Status Reason Start Date Expiration Date Visits Requested Visits Authorized [id number] Pending Review Auto-Generat ed Referral 12/24/2022 01/23/2024 1 1 [facility] for referral (narrative)* Diagnostic Procedure Only (Routine) - Pending Review Specialty Diagnoses / Procedures Referred By Jay alvarez Referred To Contact [facility] Diagnoses Abnormal mammogram Procedures BLACK DIAGNOSTIC BILATERAL DIAGNOSTIC MAMMOGRAPHY COMPUTER-AIDED DETCJ BI Doreen Oliver APRN.CNP [address] [place] [address] [facility] [address] [place] [address] Referral ID Status Reason Start Date Expiration Date Visits Requested Visits Authorized [id number] Pending Review Auto-Generat ed Referral 01/01/2023 01/31/2024 1 1 * Diagnostic Procedure Only (Routine) - Pending Review Specialty Diagnoses / Procedures [facility] To [facility] Diagnoses Abnormal mammogram Procedures US BREAST LTD LEFT US BREAST UNI REAL TIME WITH IMAGE LIMITED Doreen Oliver APRN.CNP [address] [place] [address] [facility] [address] [place] [address] Referral ID Status Reason Start Date Expiration Date Visits Requested Visits Authorized [id number] Pending Review Auto-Generat ed Referral 01/01/2023 01/31/2024 1 1 [facility] for referral (narrative)* Diagnostic Procedure Only (Routine) - Closed Specialty Diagnoses / Procedures Referred By Jay t Referred To Contact [facility] Diagnoses Hypothyroidism, unspecified type Abnormal imaging of thyroid Procedures US THYROID/PARATHYROID US SOFT TISSUE HEAD & NECK REAL TIME IMGE DOCM Doreen Oliver APRN.CNP [address] [place], [place] [id number] [id number] Referral ID Status Reason Start Date Expiration Date V isits Requested Visits Authorized [id number] Closed Auto-Generate d Referral 09/10/2022 10/10/2023 1 1 [facility] for referral (narrative)* Diagnostic Procedure Only (Routine) - Closed Specialty Diagnoses / Procedures [facility] Ref[facility] To [facility] Diagnoses Abnormal mammogram Procedures US BREAST LTD LEFT US BREAST UNI REAL TIME WITH IMAGE LIMITED Doreen Oliver APRN.CNP [address] [place] [address] [facility] [address] [place] [address] Referral ID Status Reason Start Date Expiration Date V isits Requested Visits Authorized [id number] Closed Auto-Generate d Referral 01/01/2023 01/31/2024 1 [facility] Diagnostic Procedure Only (Routine) - Closed Specialty Diagnoses / Procedures Referred By Jay alvarez Referred To Contact [facility] Diagnoses Encounter for screening mammogram for breast cancer Procedures BLACK SCREENING SCREENING MAMMOGRAPHY BI 2-VIEW BREAST INC CAD Doreen Oliver APRN.CNP [address] [id number] [facility] [address] [place] [address] Referral ID Status Reason Start Date Expiration Date V isits Requested Visits Authorized [id number] Closed Auto-Generate d Referral 12/24/2022 01/23/2024 1 1 [facility] Diagnostic Procedure Only (Routine) - Closed Specialty Diagnoses / Procedures Referred By Jay alvarez Referred To Contact [facility] Diagnoses Abnormal mammogram Procedures BLACK DIAGNOSTIC BILATERAL DIAGNOSTIC MAMMOGRAPHY COMPUTER-AIDED DETCJ BI Doreen Oliver APRN.TELECOMMUNICATIONS CLERK [address] [place] [address] [facility] [address] [place] [address] Referral ID Status Reason Start Date Expiration Date V isits Requested Visits Authorized [id number] Closed Auto-Generate d Referral 01/01/2023 01/31/2024 1 1 [facility] for visit Narrative* Diagnostic Procedure Only (Routine) - Closed Specialty Diagnoses / Procedures Referred By Jay alvarez Referred To Contact [facility] Diagnoses Encounter for screening mammogram for breast cancer Procedures BLACK SCREENING SCREENING MAMMOGRAPHY BI 2-VIEW BREAST INC CAD Doreen Oliver APRN.TELECOMMUNICATIONS CLERK [address] [place] [address] [facility] [address] [place] [address] Referral ID Status Reason Start Date Expiration Date V isits Requested Visits Authorized [id number] Closed Auto-Generate d Referral 12/24/2022 01/23/2024 1 1 [facility] Reason for Referral Specialty Diagnoses / Procedures Referred By Jay t Referred To Contact [facility] Diagnoses Right hip pain Scoliosis, unspecified scoliosis type, unspecified spinal region Procedures CONSULT TO PAIN MGT OFFICE/OUTPATIENT [facility] 60-74 MINUTES Doreen Oliver APRN.TELECOMMUNICATIONS CLERK [address] [place] [address] [facility] [place] [address] [place] [address] Referral ID Status Reason Start Date Expiration Date V isits Requested Visits Authorized [id number] Closed PCP Requested Referral 08/29/2022 08/29/2023 1 1 Specialty Diagnoses / Procedures Referred By Contac t Referred To Contact Neurology Diagnoses TIA (transient ischemic attack) Procedures CONSULT TO NEUROLOGY OFFICE/OUTPATIENT [facility] 60-74 MINUTES Doreen Oliver APRN.TELECOMMUNICATIONS CLERK [address] [place] [address] Referral ID Status Reason Start Date Expiration Date Visits Requested Visits Authorized [id number] Pending Review PCP Requested Referral 08/29/2023 1 1 Specialty Diagnoses / Procedures Referred By Contac t Referred To Contact [facility] Diagnoses TIA (transient ischemic attack) Poor short term memory Procedures CONSULT TO SPEECH THERAPY OFFICE/OUTPATIENT [facility] 60-74 MINUTES Doreen Oliver APRN.TELECOMMUNICATIONS CLERK [address] [place] [address] [facility] [address] [address] Referral ID Status Reason Start Date Expiration Date Visits Requested Visits Authorized [id number] Pending Review Auto-Generat ed Referral 11/16/2022 11/16/2023 1 1 Specialty Diagnoses / Procedures Referred By Contac t Referred To Contact Pain Management Diagnoses Femoral loosening of prosthetic right hip, subsequent encounter Chronic post-operative pain Procedures CONSULT TO PAIN MGT OFFICE/OUTPATIENT [facility] 60-74 MINUTES Doreen Oliver APRN.TELECOMMUNICATIONS CLERK [address] [place] [address] Referral ID Status Reason Start Date Expiration Date Visits Requested Visits Authorized [id number] Pending Review PCP Requested Referral 12/12/2022 12/12/2023 1 1 Specialty Diagnoses / Procedures Referred By Contac t Referred To Contact Doreen Oliver APRN.TELECOMMUNICATIONS CLERK [address] [place] [address] Referral ID Status Reason Start Date Expiration Date V isits Requested Visits Authorized [id number] Authorized 09/02/2022 09/01/2023 1 1 Specialty Diagnoses / Procedures Referred By Jay alvarez Referred To Contact [facility] Diagnoses Femoral loosening of prosthetic right hip, subsequent encounter Right hip pain Frequent falls Scoliosis, unspecified scoliosis type, unspecified spinal region Procedures CONSULT TO PHYSICAL THERAPY PHYSICAL THERAPY EVALUATION HIGH COMPLEX 45 MINS Doreen Oliver APRN.TELECOMMUNICATIONS CLERK [address] [place] [address] [facility] [place] [address] [place] [address] Referral ID Status Reason Start Date Expiration Date Visits Requested Visits Authorized [id number] Pending Review Auto-Generat ed Referral 3 08/11/2024 1 1 Summary Purpose Family History No Family History Records Found No data available for this section No data available for this section No data available for this section No data available for this section No data available for this section No Family History Records FoundNo Family History Records Found Advance Directives No Advanced Directives Records FoundNo Advanced Directives Records FoundNo Advanced Directives Records Found Additional Source Comments Source Comments (unrecognize d section and content) In the event this informatio n is protected by the Federal Confidentiality of Alcohol and Drug Abuse Patient Records regulations: The Federal rules restrict any use of the information to criminally investigate or prosecute any alcohol or drug abuse patient.[facility] the event this information is protected by the Federal Confidentiality of Alcohol and Drug Abuse Patient Records regulations: The Federal rules restrict any use of the information to criminally investigate or prosecute any alcohol or drug abuse patient.[facility] the event this information is protected by the Federal Confidentiality of Alcohol and Drug Abuse Patient Records regulations: The Federal rules restrict any use of the information to criminally investigate or prosecute any alcohol or drug abuse patient.[facility] the event this information is protected by the Federal Confidentiality of Alcohol and Drug Abuse Patient Records regulations: The Federal rules restrict any use of the information to criminally investigate or prosecute any alcohol or drug abuse patient.[facility] the event this information is protected by the Federal Confidentiality of Alcohol and Drug Abuse Patient Records regulations: The Federal rules restrict any use of the information to criminally investigate or prosecute any alcohol or drug abuse patient.[facility] the event this information is protected by the Federal Confidentiality of Alcohol and Drug Abuse Patient Records regulations: The Federal rules restrict any use of the information to criminally investigate or prosecute any alcohol or drug abuse patient.[facility] the event this information is protected by the Federal Confidentiality of Alcohol and Drug Abuse Patient Records regulations: The Federal rules restrict any use of the information to criminally investigate or prosecute any alcohol or drug abuse patient.[facility] the event this information is protected by the Federal Confidentiality of Alcohol and Drug Abuse Patient Records regulations: The Federal rules restrict any use of the information to criminally investigate or prosecute any alcohol or drug abuse patient.[facility] the event this information is protected by the Federal Confidentiality of Alcohol and Drug Abuse Patient Records regulations: The Federal rules restrict any use of the information to criminally investigate or prosecute any alcohol or drug abuse patient.[facility] the event this information is protected by the Federal Confidentiality of Alcohol and Drug Abuse Patient Records regulations: The Federal rules restrict any use of the information to criminally investigate or prosecute any alcohol or drug abuse patient.[facility] the event this information is protected by the Federal Confidentiality of Alcohol and Drug Abuse Patient Records regulations: The Federal rules restrict any use of the information to criminally investigate or prosecute any alcohol or drug abuse patient.[facility] the event this information is protected by the Federal Confidentiality of Alcohol and Drug Abuse Patient Records regulations: The Federal rules restrict any use of the information to criminally investigate or prosecute any alcohol or drug abuse patient.[facility] the event this information is protected by the Federal Confidentiality of Alcohol and Drug Abuse Patient Records regulations: The Federal rules restrict any use of the information to criminally investigate or prosecute any alcohol or drug abuse patient.[facility] the event this information is protected by the Federal Confidentiality of Alcohol and Drug Abuse Patient Records regulations: The Federal rules restrict any use of the information to criminally investigate or prosecute any alcohol or drug abuse patient.[facility] the event this information is protected by the Federal Confidentiality of Alcohol and Drug Abuse Patient Records regulations: The Federal rules restrict any use of the information to criminally investigate or prosecute any alcohol or drug abuse patient.[facility] CenterIn the event this information is protected by the Federal Confidentiality of Alcohol and Drug Abuse Patient Records regulations: The Federal rules restrict any use of the information to criminally investigate or prosecute any alcohol or drug abuse patient.[facility] CenterIn the event this information is protected by the Federal Confidentiality of Alcohol and Drug Abuse Patient Records regulations: The Federal rules restrict any use of the information to criminally investigate or prosecute any alcohol or drug abuse patient.[facility] CenterIn the event this information is protected by the Federal Confidentiality of Alcohol and Drug Abuse Patient Records regulations: The Federal rules restrict any use of the information to criminally investigate or prosecute any alcohol or drug abuse patient.[facility] CenterIn the event this information is protected by the Federal Confidentiality of Alcohol and Drug Abuse Patient Records regulations: The Federal rules restrict any use of the information to criminally investigate or prosecute any alcohol or drug abuse patient.[facility] CenterIn the event this information is protected by the Federal Confidentiality of Alcohol and Drug Abuse Patient Records regulations: The Federal rules restrict any use of the information to criminally investigate or prosecute any alcohol or drug abuse patient.[facility] CenterIn the event this information is protected by the Federal Confidentiality of Alcohol and Drug Abuse Patient Records regulations: The Federal rules restrict any use of the information to criminally investigate or prosecute any alcohol or drug abuse patient.[facility] CenterIn the event this information is protected by the Federal Confidentiality of Alcohol and Drug Abuse Patient Records regulations: The Federal rules restrict any use of the information to criminally investigate or prosecute any alcohol or drug abuse patient.[facility] CenterIn the event this information is protected by the Federal Confidentiality of Alcohol and Drug Abuse Patient Records regulations: The Federal rules restrict any use of the information to criminally investigate or prosecute any alcohol or drug abuse patient.[facility] CenterIn the event this information is protected by the Federal Confidentiality of Alcohol and Drug Abuse Patient Records regulations: The Federal rules restrict any use of the information to criminally investigate or prosecute any alcohol or drug abuse patient.[facility] CenterIn the event this information is protected by the Federal Confidentiality of Alcohol and Drug Abuse Patient Records regulations: The Federal rules restrict any use of the information to criminally investigate or prosecute any alcohol or drug abuse patient.[facility] CenterIn the event this information is protected by the Federal Confidentiality of Alcohol and Drug Abuse Patient Records regulations: The Federal rules restrict any use of the information to criminally investigate or prosecute any alcohol or drug abuse patient.[facility] CenterIn the event this information is protected by the Federal Confidentiality of Alcohol and Drug Abuse Patient Records regulations: The Federal rules restrict any use of the information to criminally investigate or prosecute any alcohol or drug abuse patient.[facility] CenterIn the event this information is protected by the Federal Confidentiality of Alcohol and Drug Abuse Patient Records regulations: The Federal rules restrict any use of the information to criminally investigate or prosecute any alcohol or drug abuse patient.[facility] CenterIn the event this information is protected by the Federal Confidentiality of Alcohol and Drug Abuse Patient Records regulations: The Federal rules restrict any use of the information to criminally investigate or prosecute any alcohol or drug abuse patient.[facility] CenterIn the event this information is protected by the Federal Confidentiality of Alcohol and Drug Abuse Patient Records regulations: The Federal rules restrict any use of the information to criminally investigate or prosecute any alcohol or drug abuse patient.[facility] CenterIn the event this information is protected by the Federal Confidentiality of Alcohol and Drug Abuse Patient Records regulations: The Federal rules restrict any use of the information to criminally investigate or prosecute any alcohol or drug abuse patient.[facility] CenterIn the event this information is protected by the Federal Confidentiality of Alcohol and Drug Abuse Patient Records regulations: The Federal rules restrict any use of the information to criminally investigate or prosecute any alcohol or drug abuse patient.[facility] CenterIn the event this information is protected by the Federal Confidentiality of Alcohol and Drug Abuse Patient Records regulations: The Federal rules restrict any use of the information to criminally investigate or prosecute any alcohol or drug abuse patient.[facility] CenterIn the event this information is protected by the Federal Confidentiality of Alcohol and Drug Abuse Patient Records regulations: The Federal rules restrict any use of the information to criminally investigate or prosecute any alcohol or drug abuse patient.[facility] CenterIn the event this information is protected by the Federal Confidentiality of Alcohol and Drug Abuse Patient Records regulations: The Federal rules restrict any use of the information to criminally investigate or prosecute any alcohol or drug abuse patient.[facility] CenterIn the event this information is protected by the Federal Confidentiality of Alcohol and Drug Abuse Patient Records regulations: The Federal rules restrict any use of the information to criminally investigate or prosecute any alcohol or drug abuse patient.[facility] CenterIn the event this information is protected by the Federal Confidentiality of Alcohol and Drug Abuse Patient Records regulations: The Federal rules restrict any use of the information to criminally investigate or prosecute any alcohol or drug abuse patient.[facility] CenterIn the event this information is protected by the Federal Confidentiality of Alcohol and Drug Abuse Patient Records regulations: The Federal rules restrict any use of the information to criminally investigate or prosecute any alcohol or drug abuse patient.[facility] CenterIn the event this information is protected by the Federal Confidentiality of Alcohol and Drug Abuse Patient Records regulations: The Federal rules restrict any use of the information to criminally investigate or prosecute any alcohol or drug abuse patient.[facility] CenterIn the event this information is protected by the Federal Confidentiality of Alcohol and Drug Abuse Patient Records regulations: The Federal rules restrict any use of the information to criminally investigate or prosecute any alcohol or drug abuse patient.[facility] CenterIn the event this information is protected by the Federal Confidentiality of Alcohol and Drug Abuse Patient Records regulations: The Federal rules restrict any use of the information to criminally investigate or prosecute any alcohol or drug abuse patient.[facility] CenterIn the event this information is protected by the Federal Confidentiality of Alcohol and Drug Abuse Patient Records regulations: The Federal rules restrict any use of the information to criminally investigate or prosecute any alcohol or drug abuse patient.[facility] CenterIn the event this information is protected by the Federal Confidentiality of Alcohol and Drug Abuse Patient Records regulations: The Federal rules restrict any use of the information to criminally investigate or prosecute any alcohol or drug abuse patient.[facility] CenterIn the event this information is protected by the Federal Confidentiality of Alcohol and Drug Abuse Patient Records regulations: The Federal rules restrict any use of the information to criminally investigate or prosecute any alcohol or drug abuse patient.[facility] CenterIn the event this information is protected by the Federal Confidentiality of Alcohol and Drug Abuse Patient Records regulations: The Federal rules restrict any use of the information to criminally investigate or prosecute any alcohol or drug abuse patient.[facility] CenterIn the event this information is protected by the Federal Confidentiality of Alcohol and Drug Abuse Patient Records regulations: The Federal rules restrict any use of the information to criminally investigate or prosecute any alcohol or drug abuse patient.[facility] CenterIn the event this information is protected by the Federal Confidentiality of Alcohol and Drug Abuse Patient Records regulations: The Federal rules restrict any use of the information to criminally investigate or prosecute any alcohol or drug abuse patient.[facility] CenterIn the event this information is protected by the Federal Confidentiality of Alcohol and Drug Abuse Patient Records regulations: The Federal rules restrict any use of the information to criminally investigate or prosecute any alcohol or drug abuse patient.[facility] CenterIn the event this information is protected by the Federal Confidentiality of Alcohol and Drug Abuse Patient Records regulations: The Federal rules restrict any use of the information to criminally investigate or prosecute any alcohol or drug abuse patient.[facility] CenterIn the event this information is protected by the Federal Confidentiality of Alcohol and Drug Abuse Patient Records regulations: The Federal rules restrict any use of the information to criminally investigate or prosecute any alcohol or drug abuse patient.[facility] CenterIn the event this information is protected by the Federal Confidentiality of Alcohol and Drug Abuse Patient Records regulations: The Federal rules restrict any use of the information to criminally investigate or prosecute any alcohol or drug abuse patient.[facility] CenterIn the event this information is protected by the Federal Confidentiality of Alcohol and Drug Abuse Patient Records regulations: The Federal rules restrict any use of the information to criminally investigate or prosecute any alcohol or drug abuse patient.[facility] CenterIn the event this information is protected by the Federal Confidentiality of Alcohol and Drug Abuse Patient Records regulations: The Federal rules restrict any use of the information to criminally investigate or prosecute any alcohol or drug abuse patient.[facility] CenterIn the event this information is protected by the Federal Confidentiality of Alcohol and Drug Abuse Patient Records regulations: The Federal rules restrict any use of the information to criminally investigate or prosecute any alcohol or drug abuse patient.[facility] CenterIn the event this information is protected by the Federal Confidentiality of Alcohol and Drug Abuse Patient Records regulations: The Federal rules restrict any use of the information to criminally investigate or prosecute any alcohol or drug abuse patient.[facility] CenterIn the event this information is protected by the Federal Confidentiality of Alcohol and Drug Abuse Patient Records regulations: The Federal rules restrict any use of the information to criminally investigate or prosecute any alcohol or drug abuse patient.[facility] CenterIn the event this information is protected by the Federal Confidentiality of Alcohol and Drug Abuse Patient Records regulations: The Federal rules restrict any use of the information to criminally investigate or prosecute any alcohol or drug abuse patient.[facility] CenterIn the event this information is protected by the Federal Confidentiality of Alcohol and Drug Abuse Patient Records regulations: The Federal rules restrict any use of the information to criminally investigate or prosecute any alcohol or drug abuse patient.[facility] CenterIn the event this information is protected by the Federal Confidentiality of Alcohol and Drug Abuse Patient Records regulations: The Federal rules restrict any use of the information to criminally investigate or prosecute any alcohol or drug abuse patient.[facility] CenterIn the event this information is protected by the Federal Confidentiality of Alcohol and Drug Abuse Patient Records regulations: The Federal rules restrict any use of the information to criminally investigate or prosecute any alcohol or drug abuse patient.[facility] CenterIn the event this information is protected by the Federal Confidentiality of Alcohol and Drug Abuse Patient Records regulations: The Federal rules restrict any use of the information to criminally investigate or prosecute any alcohol or drug abuse patient.[facility] CenterIn the event this information is protected by the Federal Confidentiality of Alcohol and Drug Abuse Patient Records regulations: The Federal rules restrict any use of the information to criminally investigate or prosecute any alcohol or drug abuse patient.[facility] CenterIn the event this information is protected by the Federal Confidentiality of Alcohol and Drug Abuse Patient Records regulations: The Federal rules restrict any use of the information to criminally investigate or prosecute any alcohol or drug abuse patient.[facility] CenterIn the event this information is protected by the Federal Confidentiality of Alcohol and Drug Abuse Patient Records regulations: The Federal rules restrict any use of the information to criminally investigate or prosecute any alcohol or drug abuse patient.[facility] CenterIn the event this information is protected by the Federal Confidentiality of Alcohol and Drug Abuse Patient Records regulations: The Federal rules restrict any use of the information to criminally investigate or prosecute any alcohol or drug abuse patient.[facility] Reason for Visit (unrecogniz ed section and content) Specialty Diagnoses / Procedures Referred By Jay alvarez Referred To Contact [facility] Diagnoses Abnormal mammogram Procedures US BREAST LTD LEFT US BREAST UNI REAL TIME WITH IMAGE LIMITED Doreen Oliver APRN.TELECOMMUNICATIONS CLERK [address] [place] [address] [facility] [address] [place] [address] Referral ID Status Reason Start Date Expiration Date V isits Requested Visits Authorized [id number] Closed Auto-Generate d Referral 01/01/2023 01/31/2024 1 1 Reason Comments Establish Care Consult to neurology due to recent strokes about 10 weeks ago 2 TIA's within 1 week Reason Comments Consult Reason Onset Date Comments Refill Request 09/04/2022 Reason Comments Orders Reason Comments Patient Question Reason Comments Consult Abnormal thyroid ult rasound Specialty Diagnoses / Procedures Referred By Jay alvarez Referred To Contact General Surgery Diagnoses Hypothyroidism, unspecified type Abnormal imaging of thyroid Thyroid nodule Procedures CONSULT TO GENERAL SURGERY OFFICE/OUTPATIENT [facility] 60-74 MINUTES Doreen Oliver APRN.TELECOMMUNICATIONS CLERK [address] [place] [address] Referral ID Status Reason Start Date Expiration Date Visits Requested Visits Authorized [id number] Pending Review PCP Requested Referral 09/14/2022 09/14/2023 1 1 Reason Comments shower grab bars Reason Comments Pre-Op Exam Right hip replacemen t Reason Comments Procedure FNA right thyroid Specialty Diagnoses / Procedures Referred By Jay alvarez Referred To Contact General Surgery / GENERAL SURGERY Diagnoses Multinodular goiter FNA right Thyroid Procedures FINE NEEDLE ASPIRATION BX W/O IMG GDN 1ST LESION SURGERY 30 Roosevelt Cardona MD [address] [place] [address] Roosevelt Cardona MD [address] [place] [address] Referral ID Status Reason Start Date Expiration Date Visits Re quested Visits Authorized [id number] Closed 09/18/2022 09/01/2023 1 1 Reason Comments clarify rx Reason Comments Refill Request Reason Onset Date Comments Opened In Error 10/01/2022 Reason Comments Forms Support animals Reason Comments Results Reason Comments Letter Reason Comments Patient needs JERMAIN follow up Reason Comments Referral for Cognitive Therapy request Reason Comments Consult Reason Onset Date Comments Refill Request 12/12/2022 Reason Comments F/U 3 Month Reason Comments Medicaion Queston Reason Comments Results Reason Comments Medication Request Reason Comments Mammogram Result Call Back Reason Comments Release Of Medical Records Reason Comments Derm Problem planters wart of lef t foot hurt to bear weight Forms f[employer] disability Reason Onset Date Comments Refill Request 02/13/2023 Reason Comments Medication Problem Reason Onset Date Comments Refill Request 02/21/2023 Reason Comments Consult Left Breast Reason Comments Handicap Placard Renewal Reason Comments ER F/U [facility] 03/06/23 for a f all Hit chin and laceration glued shutHaving left knee pain Reason Onset Date Comments Refill Request 03/29/2023 Reason Comments Cat Bite Reason Comments Abnormal Weight Gain Reason Comments Recheck Specialty Diagnoses / Procedures Referred By Jay alvarez Referred To Contact [facility] Diagnoses Hypothyroidism, unspecified type Abnormal imaging of thyroid Procedures US THYROID/PARATHYROID US SOFT TISSUE HEAD & NECK REAL TIME IMGE Doreen Moreno APRN.TELECOMMUNICATIONS CLERK [address] [place] [address] [place] [address] Referral ID Status Reason Start Date Expiration Date V isits Requested Visits Authorized [id number] Closed Auto-Generate d Referral 09/10/2022 10/10/2023 1 1 Reason Comments coughing up yellow and brown Reason Comments Recheck weight check ER F/U [facility] for COPD flare up Reason Onset Date Comments Refill Request 07/23/2023 Reason Comments Recheck COPD. Cough has impr rich but still very short of breath and having some dizziness Reason Comments Patient Update Reason Comments Patient Update Reason Onset Date Comments Home Care 08/13/2023 [facility] 07/10/2023-09/07/2023 Reason Comments Mass lower legs with neeru ing edema +2 and painful Reason Onset Date Comments Refill Request 10/04/2023 Care Teams (unrecognized sec tion and content) Hand Violin Maker Relationship Specialty Start Date End Date Doreen Oliver APRN.TELECOMMUNICATIONS CLERK [address] [place] [id number] PCP - General Internal Medicine 08/29/22 Hand Violin Maker Relationship Specialty Start Date End Date Doreen Oliver APRN.TELECOMMUNICATIONS CLERK [address] [place] [id number] PCP - General Internal Medicine 08/29/22 Hand Violin Maker Relationship Specialty Start Date End Date Doreen Oliver APRN.TELECOMMUNICATIONS CLERK [address] [place] [id number] PCP - General Internal Medicine 08/29/22 Hand Violin Maker Relationship Specialty Start Date End Date Doreen Oliver APRN.TELECOMMUNICATIONS CLERK [address] [place] [address] PCP - General Internal Medicine 08/29/22 Hand Violin Maker Relationship Specialty Start Date End Date Doreen Oliver APRN.TELECOMMUNICATIONS CLERK [facility] [place] [address] PCP - General Internal Medicine 08/29/22 Hand Violin Maker Relationship Specialty Start Date End Date Doreen Oliver APRN.TELECOMMUNICATIONS CLERK [address] [place] [address], [place] [address] PCP - General Internal Medicine 08/29/22 Hand Violin Maker Relationship Specialty Start Date End Date Doreen Oliver APRN.TELECOMMUNICATIONS CLERK [address] [place] [address], [place] [address] PCP - General Internal Medicine 08/29/22 Hand Violin Maker Relationship Specialty Start Date End Date Doreen Oliver APRN.TELECOMMUNICATIONS CLERK [address] [place] [address], [place] [address] PCP - General Internal Medicine 08/29/22 Hand Violin Maker Relationship Specialty Start Date End Date Doreen Oliver APRN.TELECOMMUNICATIONS CLERK [address] [place] [address], [place] [address] PCP - General Internal Medicine 08/29/22 Hand Violin Maker Relationship Specialty Start Date End Date Doreen Oliver APRN.TELECOMMUNICATIONS CLERK [address] [place] [address], [place] [address] PCP - General Internal Medicine 08/29/22 Hand Violin Maker Relationship Specialty Start Date End Date Doreen Oliver APRN.TELECOMMUNICATIONS CLERK [address] [place] [address], [place] [address] PCP - General Internal Medicine 08/29/22 Hand Violin Maker Relationship Specialty Start Date End Date Doreen Oliver APRN.TELECOMMUNICATIONS CLERK [address] [place] [address], [place] [address] PCP - General Internal Medicine 08/29/22 Hand Violin Maker Relationship Specialty Start Date End Date Doreen Oliver APRN.TELECOMMUNICATIONS CLERK [address] [place] [address], [place] [address] PCP - General Internal Medicine 08/29/22 Hand Violin Maker Relationship Specialty Start Date End Date Doreen Oliver APRN.TELECOMMUNICATIONS CLERK [address] [place] [address], [place] [address] PCP - General Internal Medicine 08/29/22 Hand Violin Maker Relationship Specialty Start Date End Date Doreen Oliver APRN.TELECOMMUNICATIONS CLERK [address] [place] [address], [place] [address] PCP - General Internal Medicine 08/29/22 Hand Violin Maker Relationship Specialty Start Date End Date Doreen Oliver APRN.TELECOMMUNICATIONS CLERK [address] [place] [address], [place] [address] PCP - General Internal Medicine 08/29/22 Hand Violin Maker Relationship Specialty Start Date End Date Doreen Oliver APRN.TELECOMMUNICATIONS CLERK [address] [place] [address], [place] [address] PCP - General Internal Medicine 08/29/22 Hand Violin Maker Relationship Specialty Start Date End Date Doreen Oliver APRN.TELECOMMUNICATIONS CLERK [address] [place] [id number] PCP - General Internal Medicine 08/29/22 Hand Violin Maker Relationship Specialty Start Date End Date Doreen Oliver APRN.TELECOMMUNICATIONS CLERK [address] [place] [id number] PCP - General Internal Medicine 08/29/22 Hand Violin Maker Relationship Specialty Start Date End Date Doreen Oliver APRN.TELECOMMUNICATIONS CLERK [address] [place] [address] [place] [address] PCP - General Internal Medicine 08/29/22 Hand Violin Maker Relationship Specialty Start Date End Date Doreen Oliver APRN.TELECOMMUNICATIONS CLERK [address] [place] [address], [place] [address] PCP - General Internal Medicine 08/29/22 Hand Violin Maker Relationship Specialty Start Date End Date Doreen Oliver APRN.TELECOMMUNICATIONS CLERK [address] [place] [address], [place] [address] PCP - General Internal Medicine 08/29/22 Hand Violin Maker Relationship Specialty Start Date End Date Doreen Oliver APRN.TELECOMMUNICATIONS CLERK [address] [place] [id number] PCP - General Internal Medicine 08/29/22 Hand Violin Maker Relationship Specialty Start Date End Date Doreen Oliver APRN.TELECOMMUNICATIONS CLERK [address] [place] [id number] PCP - General Internal Medicine 08/29/22 Hand Violin Maker Relationship Specialty Start Date End Date Doreen Oliver APRN.TELECOMMUNICATIONS CLERK [address] [place] [address] PCP - General Internal Medicine 08/29/22 Hand Violin Maker Relationship Specialty Start Date End Date Doreen Oliver APRN.TELECOMMUNICATIONS CLERK [address] [place] [id number] PCP - General Internal Medicine 08/29/22 Hand Violin Maker Relationship Specialty Start Date End Date Doreen Oliver APRN.TELECOMMUNICATIONS CLERK [address] [place] [address] PCP - General Internal Medicine 08/29/22 Hand Violin Maker Relationship Specialty Start Date End Date Doreen Oliver APRN.TELECOMMUNICATIONS CLERK [address] [place] [id number] PCP - General Internal Medicine 08/29/22 Hand Violin Maker Relationship Specialty Start Date End Date Doreen Oliver APRN.TELECOMMUNICATIONS CLERK [address] [place] [address] [id number] PCP - General Internal Medicine 08/29/22 Hand Violin Maker Relationship Specialty Start Date End Date Doreen Oliver APRN.TELECOMMUNICATIONS CLERK [address] [place] [address] [phone] PCP - General Internal Medicine 08/29/22 Hand Violin Maker Relationship Specialty Start Date End Date Doreen Oliver APRN.TELECOMMUNICATIONS CLERK [address] [place] [address] [phone] PCP - General Internal Medicine 08/29/22 Hand Violin Maker Relationship Specialty Start Date End Date Doreen Oliver APRN.TELECOMMUNICATIONS CLERK [address] [place] [address] [id number] PCP - General Internal Medicine 08/29/22 Hand Violin Maker Relationship Specialty Start Date End Date Doreen Oliver APRN.TELECOMMUNICATIONS CLERK [address] [place] [address] [phone] PCP - General Internal Medicine 08/29/22 Hand Violin Maker Relationship Specialty Start Date End Date Doreen Oliver APRN.TELECOMMUNICATIONS CLERK [address] [place] [address] [phone] PCP - General Internal Medicine 08/29/22 Hand Violin Maker Relationship Specialty Start Date End Date Doreen Oliver APRN.TELECOMMUNICATIONS CLERK [address] [place] [address] [id number] PCP - General Internal Medicine 08/29/22 Hand Violin Maker Relationship Specialty Start Date End Date Doreen Oliver APRN.TELECOMMUNICATIONS CLERK [address] [place] [address] [phone] PCP - General Internal Medicine 08/29/22 Hand Violin Maker Relationship Specialty Start Date End Date Doreen Oliver APRN.TELECOMMUNICATIONS CLERK [address] [place] [address] [id number] PCP - General Internal Medicine 08/29/22 Hand Violin Maker Relationship Specialty Start Date End Date Doreen Oliver APRN.TELECOMMUNICATIONS CLERK [address] [place] [address] [id number] PCP - General Internal Medicine 08/29/22 Hand Violin Maker Relationship Specialty Start Date End Date Doreen Oliver APRN.TELECOMMUNICATIONS CLERK [address] [place] [address] [id number] PCP - General Internal Medicine 08/29/22 Hand Violin Maker Relationship Specialty Start Date End Date Doreen Oliver APRN.TELECOMMUNICATIONS CLERK [address] [place] [address] [phone] PCP - General Internal Medicine 08/29/22 Hand Violin Maker Relationship Specialty Start Date End Date Doreen Oliver APRN.TELECOMMUNICATIONS CLERK [address] [place] [address] [id number] PCP - General Internal Medicine 08/29/22 Hand Violin Maker Relationship Specialty Start Date End Date Doreen Oliver APRN.TELECOMMUNICATIONS CLERK [address] [place] [address] [id number] PCP - General Internal Medicine 08/29/22 Hand Violin Maker Relationship Specialty Start Date End Date Doreen Oliver APRN.TELECOMMUNICATIONS CLERK [address] [place] [address] [phone] PCP - General Internal Medicine 08/29/22 INFORMATION SOURCE (unrecogn ized section and content) DATE CREATED AUTHOR AUTHOR'S ORGANIZ ATION 09/24/2023 [facility] DATE CREATED AUTHOR AUTHOR'S ORGANIZ ATION 10/06/2023 [facility] Care Team (unrecognized sect ion and content) Care Team Personnel Name: DOREEN OLIVER APRN-TELECOMMUNICATIONS CLERK Member Role: Primary Care Physician Address: Address: [address] [place] [address]- Care Team Related Persons Name: BASSAM PÉREZ FOR RECORDS PERTAINING TO PATIENTS WHO ARE OR HAVE BEEN ENROLLED IN A CHEMICAL DEPENDENCY/SUBSTANCEABUSE PROGRAM, SOME INFORMATION MAY BE OMITTED. This clinical summary was aggregated from multiple sources. Caution should be exercised in using it in the provision of clinical care. This summary normalizes information from multiple sources, and as a consequence, information in this document may materially change the coding, format and clinical context of patient data. In addition, data may be omitted in some cases. CLINICAL DECISIONS SHOULD BE BASED ON THE PRIMARY CLINICAL RECORDS. [facility] [employer] [facility]. provides no warranty or guarantee of the accuracy or completeness of information in this document.
--- NOTE | 2023-10-11 17:35 | ED.RN ---
patient states generalized weakness and slurred speech for a few days. no slurred speech noted at this time.
[2023-10-11 18:00] VITALS: BP 128/83; PULSE 54; RESP 16; O2SAT 97
[2023-10-11 18:47] LABS: Bacteria 0 SEEN /hpf (None Seen); Mucous, Urine 0 SEEN /hpf (<or=2+); Red Blood Cells-Urine 0 SEEN /hpf (0-5)
[2023-10-11 18:48] LABS: Color, Urine Yellow (Yellow); Glucose, Dipstick Normal (Normal); Ketone-Dipstick Negative (Negative); Leukocyte Esterase-Dipstick 25 /ul (Negative); Nitrite-Dipstick Negative (Negative); Occult Blood-Urine Negative /ul (Negative); Protein-Dipstick Negative (Negative); Specific Gravity, Urine 1.015 (1.002-1.030); Urine Bilirubin Dipstick Negative (Negative); Urine Clarity Clear (Clear); Urine Urobilinogen Normal (Normal)
[2023-10-11 18:54] LABS: Squamous Epithelial Cells - UA 5-10 SEEN /hpf (5-10); White Blood Cells 0-5 SEEN /hpf (0-5)
[2023-10-11 19:00] VITALS: BP 148/73; PULSE 52; RESP 16; O2SAT 96
== END 2023-10-11 19:38 | disposition home or self-care (01) ==
PROVIDERS: Emergency Provider Emergency Medicine; PCP Internal Medicine; Visit Provider Emergency Medicine
DX: E86.0 Dehydration (principal); J44.9 Chronic obstructive pulmonary disease, unspecified; I50.9 Heart failure, unspecified; R53.1 Weakness; I25.10 Atherosclerotic heart disease of native coronary artery without angina pectoris; I25.2 Old myocardial infarction; R47.81 Slurred speech; Z79.82 Long term (current) use of aspirin; Z79.899 Other long term (current) drug therapy; Z86.73 Personal history of transient ischemic attack (TIA), and cerebral infarction without residual deficits
CPT/HCPCS: 70450; 71045; 80053; 81001; 83605; 84484; 85025; 85610; 85730; 87631; 93005; 96360; 99284; J7030; A4216

== ENCOUNTER 2023-11-11 18:35 | Emergency (ER) | payer MEDICARE, MEDICAID, SELFPAY ==
[2023-11-11] VITALS (7 sets, daily range): BP systolic 91–114; BP diastolic 49–77; PULSE 44–64; RESP 12–18; TEMP 36.4–36.6; O2SAT 92–100; BMI 32.4
--- NOTE | 2023-11-11 19:15 | EKG12_ITS ---
Test Reason : CP Blood Pressure : / mmHG Vent. Rate : 044 BPM Atrial Rate : 044 BPM P-R Int : 152 ms QRS Dur : 110 ms QT Int : 528 ms P-R-T Axes : 059 000 017 degrees QTc Int : 451 ms Marked sinus bradycardia Abnormal ECG Confirmed by Himanshu Moreno ([id number]), assignment editor LALI NORTON ([id number]) on 11/12/2023 11:20:50 AM Referred By: RYLEE Confirmed By:Himanshu Moreno
--- NOTE | 2023-11-11 19:17 | EDS_ITS ---
HPI <Awilda Peña RN - Last Filed: 11/11/23 22:55> History of Present Illness Chief Complaint: Chest Pain Informant: patient Onset/Context/Timing Onset: Today Activity at onset: sudden Timing: Continuous Quality: Positive for Sharp and - (Throbbing) Location: - (Upper one third of sternum) Current Severity: 5/10 Maximum Severity: 7/10 Worsened By: Nothing Relieved By: Nothing Associated Symptoms: Negative for Nausea, Vomiting, Diaphoresis, Dyspnea, Cough, Fever, Lightheadedness, Acid Reflux or Palpitations Narrative Narrative: Patient is a 68-year-old female who presents to the ED via EMS for sudden onset of sharp, throbbing chest pain beginning approximately 20 minutes prior to EMS arrival. She reports pain radiates to both arms. She rates the pain currently 5/10 with worst being 7/10. She denies radiation to jaw, neck or back. She denies diaphoresis. She denies nausea. She reports chronic shortness of breath due to COPD. She reports her shortness of breath has been worse over the past 1-1/2 years since she moved from [place]. She does report worsening edema of her bilateral lower extremities. Of note, patient heart rate 49. Patient reports baseline heart rate is 45-50. Patient reports last cardiac cath was 2 years ago in [place]. She does report the symptoms are not similar to her prior MIs. Prior Similar Symptoms: No Recent Illness/Hospitalization: No CVD Risk Factors: Positive for Diabetes (Prediabetes) and Hypercholesterolemia; Negative for Hypertension or Family History 1' </=55 PE Risk Factors: Negative for Recent Travel/Surgery, Recent Immobilization, Prior DVT or PE or OCP + Smoking + >/=35 TAD Risk Factors: Negative for Marfan's Syndrome, Hypertension or Family History PFSH <Awilda Peña RN - Last Filed: 11/11/23 22:55> [facility] Medical History Arm weakness Asthma CAD (coronary artery disease) Carotid artery disease COPD (chronic obstructive pulmonary disease) Dyslipidemia GERD (gastroesophageal reflux disease) Grand mal seizure Heart attack Heart failure History of back problems History of breast cancer History of cervical cancer History of COPD History of migraine History of seizures Hx of cardiac murmur Hx of chronic arthritis Hx of chronic bronchitis Hx of emotional problems Hx of hearing loss Hx of hypoglycemia Hx of seasonal allergies Hypotension Leg weakness Major depressive disorder Paroxysmal SVT (supraventricular tachycardia) Posttraumatic stress disorder Prediabetes Stroke Stroke-like symptoms TBI (traumatic brain injury) Vocal cord polyp Wears glasses Home Medications albuterol sulfate 90 mcg/actuation aerosol inhaler (Ventolin HFA) 90 mcg inhalation Q4H PRN SHORTNESS OF BREATH 05/25/22 [History Last Taken Unknown] omeprazole 40 mg capsule,delayed release 40 mg PO BID ACID REFLUX 05/25/22 [History Last Taken 07/09/23] simvastatin 40 mg tablet 40 mg PO QHS CHOLESTEROL 05/25/22 [History Last Taken 07/08/23] aspirin 81 mg tablet,delayed release (Adult Low Dose Aspirin) 81 mg PO DAILY HEART HEALTH 06/26/22 [History Last Taken 07/09/23] handicap placard #1 ea 07/23/22 [Rx Last Taken Unknown] miscellaneous medical supply #2 ea 08/16/22 [Rx Last Taken Unknown] diclofenac sodium 75 mg tablet,delayed release 75 mg PO BID PAIN #60 tabs 02/12/23 [Rx Last Taken 07/09/23] hydrocodone 10 mg-acetaminophen 325 mg tablet 1 tab PO Q6H PRN PAIN 02/18/23 [History Last Taken 07/09/23] cyclobenzaprine 10 mg tablet 20 mg PO 4X/DAY MUSCLE SPASMS 02/28/23 [History Last Taken 07/09/23] sertraline 50 mg tablet 50 mg PO DAILY DEPRESSION/ANXIETY #90 tabs 05/15/23 [Rx Last Taken 07/09/23] levothyroxine 88 mcg tablet 88 mcg PO QHS THYROID 05/24/23 [History Last Taken 07/08/23] benzonatate 100 mg capsule 200 mg PO DAILY COUGH 06/04/23 [History Last Taken 07/09/23] methocarbamol 750 mg tablet 750 mg PO 4X/DAY MUSCLE SPASMS/PAIN 06/04/23 [History Last Taken 07/09/23] phentermine 37.5 mg tablet 37.5 mg PO DAILY WEIGHT LOSS 06/04/23 [History Last Taken 07/09/23] dicyclomine 20 mg tablet 20 mg PO 4X/DAY IRRITABLE BOWELS 07/09/23 [History Last Taken 07/09/23] doxepin 10 mg capsule 10 mg PO QHS DEPRESSION 07/09/23 [History Last Taken 07/08/23] promethazine 25 mg tablet 25 mg PO Q6H PRN NAUSEA/VOMITING 07/09/23 [History Last Taken 07/08/23] budesonide 0.5 mg/2 mL suspension for nebulization mg inhalation DAILY PRN 09/12/23 [History Last Taken Unknown] epinephrine 0.3 mg/0.3 mL injection, auto-injector IM ONCE PRN 09/12/23 [History Last Taken Unknown] fluticasone fur. 200 mcg-umeclid 62.5 mcg-vilant 25 mcg inhalat.powder (Trelegy Ellipta) inhalation 09/12/23 [History Last Taken Unknown] furosemide 20 mg tablet mg PO 09/12/23 [History Last Taken Unknown] gabapentin 300 mg capsule 600 mg PO .COMPLEX NEUROPATHY 09/12/23 [History Last Taken Unknown] montelukast 10 mg tablet mg PO 09/12/23 [History Last Taken Unknown] aripiprazole 5 mg tablet 5 mg PO QHS DEPRESSION #14 tabs 09/19/23 [Rx Last Taken Unknown] diazepam 5 mg tablet 5 mg PO DAILY PRN ANXIETY #14 tabs 09/19/23 [Rx Last Taken Unknown] prazosin 2 mg capsule 2 mg PO QHS 90 days #90 caps 09/19/23 [Rx Last Taken Unknown] prazosin 1 mg capsule 1 mg PO QHS nightmares #30 caps 10/15/23 [Rx Last Taken Unknown] Allergy/AdvReac Type Severity Reaction Status Date / Time divalproex sodium Allergy Angioedema Verified 11/11/23 18:48 [From Depakote] Influenza Virus Vaccines Allergy Angioedema Verified 11/11/23 18:48 [flu shot] phenytoin [From Dilantin] Allergy Hives Verified 11/11/23 18:48 Iodinated Contrast Media AdvReac Intermediate Angioedema Verified 11/11/23 18:48 Latex, Natural Rubber AdvReac Swelling Verified 11/11/23 18:48 meloxicam AdvReac Other Verified 11/11/23 18:48 oxybutynin [From Ditropan] AdvReac Swelling Verified 11/11/23 18:48 pravastatin AdvReac Swelling Verified 11/11/23 18:48 tetracycline AdvReac Itching Verified 11/11/23 18:48 tramadol AdvReac Other Verified 11/11/23 18:48 Family History Other Adopted Surgical History History of total right hip replacement Hx of cholecystectomy S/P ALLAN (total abdominal hysterectomy) Social History household members: other details: Living with her keya. 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 Smoking Status: Never smoker Electronic Cigarette Use: not used alcohol intake: never substance use type: does not use caffeine: Yes Type: coffee Number of servings: 1 do you feel safe at home: Yes ROS <Awilda Peña RN - Last Filed: 11/11/23 22:55> ROS ED Constitutional Constitutional ED: Denies chills, fever(s) or sweats Eyes Eyes: Denies change in vision Cardiovascular Cardiovascular: Reports chest pain; Denies as per HPI, palpitations or racing heartbeat Respiratory/Chest Respiratory/Chest: Reports cough, dyspnea, dyspnea on exertion and other Details: Chronic shortness of breath Gastrointestinal Gastrointestinal: Denies abdominal pain, constipation, diarrhea, nausea or vomiting Genitourinary Genitourinary ED: Denies dysuria, hematuria or urinary frequency Musculoskeletal Musculoskeletal: Denies arthralgias or myalgias Neurologic Neurologic: Denies headache(s), paresthesias or weakness Psychiatric Psychiatric: Denies anxiety or depression EXAM <Awilda Peña RN - Last Filed: 11/11/23 22:55> Physical Exam Narrative Exam Narrative: Patient awake and alert. Well-kept. Const Vital Signs: 11/11/23 18:44 11/11/23 18:50 11/11/23 19:38 Temperature 97.8 F Temperature Source Temporal Pulse Rate 49 L Respiratory Rate 17 Respiratory Effort Normal Blood Pressure 106/64 Blood Pressure Mean 78 Pulse Ox 100 98 Oxygen Delivery Method Room Air Room Air 11/11/23 20:35 11/11/23 21:00 11/11/23 22:00 Temperature Temperature Source Pulse Rate 52 L 44 L 53 L Respiratory Rate 18 12 15 Respiratory Effort Blood Pressure 91/58 L 114/53 L 114/77 Blood Pressure Mean 69 73 89 Pulse Ox 97 98 97 Oxygen Delivery Method Room Air 11/11/23 23:00 11/11/23 23:15 Temperature 97.6 F L Temperature Source Pulse Rate 64 58 L Respiratory Rate 15 14 Respiratory Effort Blood Pressure 94/49 L 101/56 L Blood Pressure Mean 64 71 Pulse Ox 92 98 Oxygen Delivery Method Positive well nourished and well developed General Appearance ED: well developed and NAD HEENT Reports moist mucous membranes normocephalic Eyes PERRL and EOMs intact bilaterally Neck no lymphadenopathy, supple and no JVD Chest Wall inspection of chest normal and palpation of chest normal Chest: Negative for tenderness Resp normal respiratory effort and clear to auscultation bilaterally Effort and Inspection: Negative for respiratory distress Auscultation: Negative for rales, rhonchi or wheezes Cardio regular rate, regular rhythm, S1 normal heart sound and S2 normal heart sound Rate: bradycardia Peripheral Pulses: pulses 2+ throughout GI normal to inspection, nondistended, normoactive bowel sounds, soft to palpation, non-tender and no masses Narrative: Denies dysuria, hematuria, or urinary frequency Back/Spine no CVA tenderness and no thoracic nor lumbar tenderness Extremity Extremity Narrative: Mild, nonpitting bilateral lower extremity edema General Extremety ED: Yes edema General Extremity: edema Neuro oriented x3 Sensorium / Orientation: awake Motor Exam: strength 5/5 throughout Psych mental status grossly normal Skin no rashes or lesions noted and no wounds <Dr. Jackie Rosario MD - Last Filed: 11/11/23 23:33> Physical Exam Const Vital Signs: 11/11/23 18:44 11/11/23 18:50 11/11/23 19:38 Temperature 97.8 F Temperature Source Temporal Pulse Rate 49 L Respiratory Rate 17 Respiratory Effort Normal Blood Pressure 106/64 Blood Pressure Mean 78 Pulse Ox 100 98 Oxygen Delivery Method Room Air Room Air 11/11/23 20:35 11/11/23 21:00 11/11/23 22:00 Temperature Temperature Source Pulse Rate 52 L 44 L 53 L Respiratory Rate 18 12 15 Respiratory Effort Blood Pressure 91/58 L 114/53 L 114/77 Blood Pressure Mean 69 73 89 Pulse Ox 97 98 97 Oxygen Delivery Method Room Air 11/11/23 23:00 11/11/23 23:15 Temperature 97.6 F L Temperature Source Pulse Rate 64 58 L Respiratory Rate 15 14 Respiratory Effort Blood Pressure 94/49 L 101/56 L Blood Pressure Mean 64 71 Pulse Ox 92 98 Oxygen Delivery Method MDM <Awilda Peña RN - Last Filed: 11/11/23 22:55> [facility] Narrative Medical decision making narrative: 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 IV line initiated. Labwork obtained to evaluate for leukocytosis, anemia, and electrolyte derangement. EKG obtained to evaluate for cardiac arrhythmia/ischemia. Chest x-ray obtained to evaluate for acute lung pathology, cardiac size, or mediastinal abnormality. History & Record Review Discussion w/independent historian: Patient Additional record(s) reviewed:: Prior outpatient record Lab Data Attestation: I reviewed the patient's lab results. Labs: Laboratory Results - last 24 hr 11/11/23 11/11/23 19:15 22:09 WBC 5.9 RBC 3.22 L Hgb 8.9 L Hct 29.5 L MCV 91.6 MCH 27.6 MCHC 30.2 L RDW Std Deviation 50.0 H RDW Coeff of Arti 14.8 H Plt Count 261 MPV 10.6 Immature Gran % (Auto) 0.500 Neut % (Auto) 64.1 Lymph % (Auto) 25.1 [place] % (Auto) 8.0 Eos % (Auto) 2.0 Baso % (Auto) 0.3 Absolute Neuts (auto) 3.8 Absolute Lymphs (auto) 1.48 Nucleated RBC % 0 Sodium 137 Potassium 4.5 Chloride 107 Carbon Dioxide 24.0 Anion Gap 6 BUN 6 L Creatinine 0.78 Estim Creat Clear Calc 76.52 Est GFR (MDRD) Af Amer 94 Est GFR (MDRD) Non-Af 78 BUN/Creatinine Ratio 7.7 L Glucose 99 Calcium 8.4 L Troponin I High Sens 6 5 B-Natriuretic Peptide 89.0 Radiography Chest X-Ray - ED: 1 View, Read by Radiologist and No Acute Disease Diagnostic Testing: Clinical Impression(s) from Imaging Studies Chest X-Ray 11/11/23 19:40 IMPRESSION: No radiographic evidence of acute cardiopulmonary disease. Hiatal hernia. Electronically Signed: Dedrick Gold DO at 20:09 EDT Reading Location ID and State: [facility] / [place] Tel [phone], Service support , EKG Initial EKG: Attestation: I personally reviewed and interpreted this EKG as follows: Interpretation: Sinus Bradycardia Comments: Sinus bradycardia with a rate of 44. No evidence of dysrhythmia or ischemia. Prior EKG tracings: not available for review Differential Diagnosis Chest pain/SOB: ACS and CHF Differential Diagnosis: GERD Management Discussion w/another healthcare provider: Other (Dr. Rosario, ED provider) Treatment and Re-Evaluation :: Patient lab work and imaging reviewed. CBC shows a normal white blood cell count of 5.9 with 64.1% neutrophils. Hemoglobin is 8.9 which is the patient's baseline. Platelets are 261. Chemistry shows normal sodium of 137, normal potassium 4.5, normal glucose at 99. High-sensitivity troponin is normal at 6. Repeat high-sensitivity troponin is negative at 5. BNP is normal at 89. Chest x-ray is negative for acute cardiopulmonary process. Lab work and imaging results discussed with patient. Discussed importance of stress test that was supposed to be completed in 06/2023. With negative test results, patient is comfortable going home. She reports she would like to obtain a stress test when she returns to [place] in 3-1/2 weeks. Patient instructed to follow-up with her primary care provider in 1 to 2 weeks. She is to return to ED for worsening or concerning symptoms. Patient to be discharged home. <Dr. Jackie Rosario MD - Last Filed: 11/11/23 23:33> [facility] Lab Data Labs: Laboratory Results - last 24 hr 11/11/23 11/11/23 19:15 22:09 WBC 5.9 RBC 3.22 L Hgb 8.9 L Hct 29.5 L MCV 91.6 MCH 27.6 MCHC 30.2 L RDW Std Deviation 50.0 H RDW Coeff of Arti 14.8 H Plt Count 261 MPV 10.6 Immature Gran % (Auto) 0.500 Neut % (Auto) 64.1 Lymph % (Auto) 25.1 [place] % (Auto) 8.0 Eos % (Auto) 2.0 Baso % (Auto) 0.3 Absolute Neuts (auto) 3.8 Absolute Lymphs (auto) 1.48 Nucleated RBC % 0 Sodium 137 Potassium 4.5 Chloride 107 Carbon Dioxide 24.0 Anion Gap 6 BUN 6 L Creatinine 0.78 Estim Creat Clear Calc 76.52 Est GFR (MDRD) Af Amer 94 Est GFR (MDRD) Non-Af 78 BUN/Creatinine Ratio 7.7 L Glucose 99 Calcium 8.4 L Troponin I High Sens 6 5 B-Natriuretic Peptide 89.0 Radiography Diagnostic Testing: Clinical Impression(s) from Imaging Studies Chest X-Ray 11/11/23 19:40 IMPRESSION: No radiographic evidence of acute cardiopulmonary disease. Hiatal hernia. Electronically Signed: Dedrick Gold DO at 20:09 EDT , Treatment and Re-Evaluation :: Patient lab work and imaging reviewed. CBC shows a normal white blood cell count of 5.9 with 64.1% neutrophils. Hemoglobin is 8.9 which is the patient's baseline. Platelets are 261. Chemistry shows normal sodium of 137, normal potassium 4.5, normal glucose at 99. High-sensitivity troponin is normal at 6. Repeat high-sensitivity troponin is negative at 5. BNP is normal at 89. Chest x-ray is negative for acute cardiopulmonary process. Lab work and imaging results discussed with patient. Discussed importance of stress test that was supposed to be completed in 06/2023. With negative test results, patient is comfortable going home. She reports she would like to obtain a stress test when she returns to [place] in 3-1/2 weeks. Patient instructed to follow-up with her primary care provider in 1 to 2 weeks. She is to return to ED for worsening or concerning symptoms. Patient to be di scharged home. Patient seen and evaluated with SHONDA student. I personally interviewed and examined the patient. I was involved in all aspects of patient's orders, interpretation of results, and treatment. Patient presents via EMS secondary to chest pain. She reports about 20 minutes prior to calling EMS she developed central chest pain with radiation down both arms. She does have a history of coronary disease. Patient sitting upright in bed no acute distress. Head and neck examination unremarkable. Heart is bradycardic and regular. No murmurs appreciated. Lung sounds are clear. Abdomen soft and nontender. Neuro exam unremarkable. EKG is sinus bradycardia at 44 bpm. Patient states this is normal for her. CBC was normal white count 5.9 with a hemoglobin of 8.9. This is consistent with her prior hemoglobin values as well. Chemistry studies are unremarkable. Initial troponin is 6 with a 2-hour repeat troponin of 5. BNP is normal at 89. Portable chest x-ray per my interpretation reveals chronic changes with no focal infiltrate. Radiology interpretation reviewed and agrees. I did review the last cardiology visit from June of last year. At that time they had commented that they would be ordering a nuclear stress test. I do not see any results from this. When patient is questioned about this she states it was never ordered or done. We did discuss potential admission for stress test as it has been considered recently, however patient declines. She states that she is planning on moving to [place] in a few weeks and will follow-up there. She does not want further workup performed here. She will be discharged home but does understand that she can return at any time for repeat evaluation. Discharge Plan Triage Chief Complaint: Chest Pain ED Provider: Jackie Rosario Dx/Rx/DC Orders Clinical Impression: Chest pain Instructions: ED Chest Pain, Uncertain Cause Prescriptions: No Action aspirin [Adult Low Dose Aspirin] 81 mg tablet,delayed release (DR/EC) 81 mg PO DAILY (DME) handicap shukriard See Rx Instructions .ROUTE .MEDSUPPLY Qty: 1 0RF Rx Instructions: Length of time: 3 years (DME) miscellaneous medical supply [facility] See Rx Instructions .Route Qty: 2 0RF Rx Instructions: As directed cyclobenzaprine 10 mg tablet 20 mg PO 4X/DAY hydrocodone-acetaminophen 10-325 mg tablet 1 tab PO Q6H PRN (Reason: PAIN ) sertraline 50 mg tablet 50 mg PO DAILY Qty: 90 3RF budesonide 0.5 mg/2 mL suspension for nebulization inhalation DAILY PRN Patient Comments: INHALE 2ML BY NEBULIZER 2 TIMES A DAY montelukast 10 mg tablet PO furosemide 20 mg tablet PO epinephrine 0.3 mg/0.3 mL auto-injector IM ONCE PRN Patient Comments: INJECT SYRINGE DIRECTED FOR ALLERGIC REACTION Trelegy Ellipta 200-62.5-25 mcg blister with device inhalation Patient Comments: INHALE 1 PUFF BY MOUTH EVERY DAY INSTRUCTED levothyroxine 88 mcg tablet 88 mcg PO QHS benzonatate 100 mg capsule 200 mg PO DAILY phentermine 37.5 mg tablet 37.5 mg PO DAILY gabapentin 300 mg capsule 600 mg PO .COMPLEX Rx Instructions: 600 mg orally daily with meals omeprazole 40 mg Capsule,Delayed Release(Dr/Ec) 40 mg PO BID simvastatin 40 mg Tablet 40 mg PO QHS albuterol sulfate [Ventolin HFA] 90 mcg/actuation Hfa Aerosol Inhaler 90 mcg INHALATION Q4H PRN (Reason: SHORTNESS OF BREATH ) methocarbamol 750 mg tablet 750 mg PO 4X/DAY doxepin 10 mg capsule 10 mg PO QHS promethazine 25 mg tablet 25 mg PO Q6H PRN (Reason: NAUSEA/VOMITING ) dicyclomine 20 mg tablet 20 mg PO 4X/DAY diclofenac sodium 75 mg tablet,delayed release (DR/EC) 75 mg PO BID Qty: 60 0RF prazosin 2 mg capsule 2 mg PO QHS 90 Days Qty: 90 0RF aripiprazole 5 mg tablet 5 mg PO QHS Qty: 14 0RF diazepam 5 mg tablet 5 mg PO DAILY PRN (Reason: ANXIETY ) Qty: 14 0RF prazosin 1 mg capsule 1 mg PO QHS Qty: 30 2RF Rx Instructions: To be taken in addition to 2 mg capsule for 3 mg total nightly dose Primary Care Provider: Glenis Paula NP Referrals: Glenis Paula NP, SENIOR BUSINESS MANAGER-C [Primary Care Provider] - Activity Restrictions/Additional Instructions: Follow-up with your primary care provider in 1 to 2 weeks. Recommend following up for a stress test that was recommended 07/2023. Return to ED for worsening or concerning symptoms. Disposition Disposition: Home, Self Care Discharge Date/Time: 11/11/23 23:20
--- NOTE | 2023-11-11 19:40 | RAD_ITS ---
INDICATION: chest pain EXAMINATION/TECHNIQUE: X-RAY - XR Chest 1 View COMPARISON: October 11, 2023 FINDINGS: LINES/DEVICES: None. LUNGS: No consolidation, edema or effusion. No pneumothorax. MEDIASTINUM AND CARDIOVASCULAR STRUCTURES: Cardiac silhouette not enlarged. Central airways and mediastinal contour are unremarkable. BONES AND SOFT TISSUES: Unremarkable. Hiatal hernia. RAD/Chest 1 View (Portable) IMPRESSION: No radiographic evidence of acute cardiopulmonary disease. Hiatal hernia. Electronically Signed: Dedrick Gold DO at 20:09 EDT ,
[2023-11-11] MEDS: Aspirin 81 MG TAB.CHEW 324 MG PO (19:49)
[2023-11-11 19:51] LABS: Absolute Lymphocyte Count 1.48 X10^3/uL (0.83-4.51); Absolute Neutrophil Count 3.8 X10^3/uL (2.0-7.7); Basophil# 0.02 X10^3/uL; Basophil% 0.3 % (0-1); Eosinophil# 0.12 X10^3/uL; Hematocrit 29.5 % (37-47); Hemoglobin 8.9 g/dL (12.0-15.0); Lymphocyte # 1.48 X10^3/ul (0.83-4.51); Lymphocyte % 25.1 % (19-41); Mean Corp Hgb Conc 30.2 g/dL (32-36); Mean Corpuscular Hgb 27.6 pg (27.0-32.0); Mean Corpuscular Volume 91.6 fL (81-99); Mean Platelet Vol. 10.6 fl (6.2-12.0); Monocyte# 0.47 X10^3/uL; NRBC Flagged by Analyzer 0 % (0-5); Neutrophil # 3.78 X10^3/uL (2.7-7.7); Neutrophil % 64.1 % (47-70); Platelet Count 261 K/mm3 (150-450); RBC Distribution Width CV 14.8 % (11.6-14.6); Red Blood Count 3.22 M/mm3 (4.2-5.4); White Blood Count 5.9 K/mm3 (4.4-11.0)
[2023-11-11 20:20] LABS: Anion Gap 6 (5-15); BUN 6 mg/dL (7-18); BUN/Creat Ratio 7.7 RATIO (10-20); Calcium,Total 8.4 mg/dL (8.5-10.1); Chloride 107 mmol/L (98-107); Creatinine, Serum 0.78 mg/dL (0.55-1.02); EST Glomerular Filtration Rate 78 mL/min (>60); Est Glom Filt Rate - Afr Amer 94 mL/min (>60); Estimated Creatinine Clearance 76.52 ml/min; Glucose 99 mg/dL (74-106); Potassium 4.5 mmol/L (3.5-5.1); Sodium Level 137 mmol/L (136-145); Troponin-I HS (w/2H Reflex) 6 pg/mL (3.0-54.0)
[2023-11-11 21:47] LABS: Reflex Troponin-HS? (from REC) Y
[2023-11-11 22:34] LABS: Troponin-I HS 5 pg/mL (3.0-54.0)
== END 2023-11-11 23:20 | disposition home or self-care (01) ==
PROVIDERS: Emergency Provider Emergency Medicine; PCP Internal Medicine; Visit Provider Emergency Medicine
DX: R07.9 Chest pain, unspecified (principal); J44.9 Chronic obstructive pulmonary disease, unspecified; I25.10 Atherosclerotic heart disease of native coronary artery without angina pectoris; I25.2 Old myocardial infarction; R06.00 Dyspnea, unspecified; Z86.73 Personal history of transient ischemic attack (TIA), and cerebral infarction without residual deficits
CPT/HCPCS: 71045; 80048; 83880; 84484; 85025; 93005; 99283

== ENCOUNTER 2023-11-20 15:00 | Outpatient (RCR) | payer MEDICARE, MEDICAID, SELFPAY ==
--- NOTE | 2023-04-18 12:54 | HP.PTREVAL_ITS ---
Re-Evaluation Intro: Ariel Hua PA-C, It has been my pleasure to treat HALI BENJAMIN over the last 48 visits for R MARILUZ 10/30/22. Please see the progress note below for an update on the physical therapy plan of care! Subjective Subjective: Pt reports my hip pain is 5, LBP 7/10 Objective Objective/Function: R hip pain ranges from 5-6/10 Pt is able to ambulate 340 feet with rollator until needing to rest MMT: R hip flex= 13, L hip flex= 19 #F Pt was making excellent progress, but has regressed secondary to having to limit her exercises secondary to transportation and illness. Plan Plan Plan: Attempt to get 12 more visits approved to focus on LE strengthening, gait tolerance, and pain reduction of R hip. Balance/Gait/Functional tests Balance/Special Test Scores Lower Extremity Functional Score: 11 Goals Goals Goal 1:: Decrease R hip pain x 50% to aid with sleep Goal Time Frame: 4-6 Weeks Goal Progress: Progressing Goal 2:: Pt will be able to ambulate 1000 feet without difficulty to aid with community ambulation Goal Time Frame: 4-6 Weeks Goal Progress: Progressing Goal 3:: I with HEP Goal Time Frame: 4-6 Weeks Goal Progress: Progressing Anticipated Interventions Re-Evaluation Ending Re-evaluation ending: Please do not hesitate to contact me at [phone] by phone or Fax: if you have questions or concerns regarding this new plan of care! Sincerely, Fidencio Shaw, PT, ATC
--- NOTE | 2023-04-18 13:01 | HP.PTREVAL_ITS ---
Re-Evaluation Intro: Ariel Hua PA-C, It has been my pleasure to treat HALI BENJAMIN over the last 48 visits for R MARILUZ 10/30/22. Please see the progress note below for an update on the physical therapy plan of care! Subjective Subjective: Pt reports my hip pain is 5, LBP 7/10 Objective Objective/Function: R hip pain ranges from 5-6/10 Pt is able to ambulate 340 feet with rollator until needing to rest MMT: R hip flex= 13, L hip flex= 19 #F Pt was making excellent progress, but has regressed secondary to having to limit her exercises secondary to transportation and illness. Plan Plan Plan: Attempt to get 12 more visits approved to focus on LE strengthening, gait tolerance, and pain reduction of R hip. Balance/Gait/Functional tests Balance/Special Test Scores Lower Extremity Functional Score: 11 Goals Goals Goal 1:: Decrease R hip pain x 50% to aid with sleep Goal Time Frame: 4-6 Weeks Goal Progress: Progressing Goal 2:: Pt will be able to ambulate 1000 feet without difficulty to aid with community ambulation Goal Time Frame: 4-6 Weeks Goal Progress: Progressing Goal 3:: I with HEP Goal Time Frame: 4-6 Weeks Goal Progress: Progressing Anticipated Interventions Re-Evaluation Ending Re-evaluation ending: Please do not hesitate to contact me at [phone] by phone or Fax: if you have questions or concerns regarding this new plan of care! Sincerely, Fidencio Shaw, PT, ATC
--- NOTE | 2023-06-05 12:10 | HP.PTREVAL ---
Re-Evaluation Intro: Ariel Hua PA-C, It has been my pleasure to treat HALI BENJAMIN over the last 59 visits for R MARILUZ 10/30/22. Please see the progress note below for an update on the physical therapy plan of care! Subjective Subjective: My pain is getting better. My pain in the R hip is 4/10, LB is 5/10 Objective Objective/Function: R hip pain is 4/10 Pt is able to ambulate 340 feet with rollator until feeling fatigued FGA: 08/31 Pt is progressing with pain and function at this time. Pt still suffers from limited mobility and balance at this time Plan Plan Plan: attempt to get 12 more visits approved at this time to focus on strengthening, balance, and gait distance Balance/Gait/Functional tests Balance/Special Test Scores Functional Gait Assessment Score: 12 % Disability: 60.0000 Lower Extremity Functional Score: 15 Goals Goals Goal 1:: Decrease R hip pain x 50% to aid with sleep Goal Time Frame: 4-6 Weeks Goal Progress: Progressing Goal 2:: Pt will be able to ambulate 1000 feet without difficulty to aid with community ambulation Goal Time Frame: 4-6 Weeks Goal Progress: Progressing Goal 3:: I with HEP Goal Time Frame: 4-6 Weeks Goal Progress: Progressing Goal 4:: Increase FGA x 5 points to aid with preventing future falls Anticipated Interventions Re-Evaluation Ending Re-evaluation ending: Please do not hesitate to contact me at [phone] by phone or if you have questions or concerns regarding this new plan of care! Sincerely, Fidencio Shaw, PT, ATC
--- NOTE | 2023-06-10 11:05 | HP.SPREEV_ITS ---
History History Date of Eval: 11/22/22 Attending Doctor: OMERO Referring Doctor: OMERO Smoking Status: Never smoker Hx Smoking: No Hx Tobacco Use: No Pain Is pain an issue with your current prescribed condition?: No Personal Preferred language: Greenlandic Patient Allergies Allergies Allergies: Allergies divalproex sodium [From Depakote] Allergy (Verified 06/04/23 12:03) Angioedema Influenza Virus Vaccines [flu shot] Allergy (Verified 06/04/23 12:03) Angioedema hives phenytoin [From Dilantin] Allergy (Verified 06/04/23 12:03) Hives throat swells Iodinated Contrast Media Adverse Reaction (Intermediate, Verified 06/04/23 12:03) Angioedema Latex, Natural Rubber Adverse Reaction (Verified 06/04/23 12:03) Swelling meloxicam Adverse Reaction (Verified 06/04/23 12:03) Other makes me feel loopy oxybutynin [From Ditropan] Adverse Reaction (Verified 06/04/23 12:03) Swelling itching pravastatin Adverse Reaction (Verified 06/04/23 12:03) Swelling tetracycline Adverse Reaction (Verified 06/04/23 12:03) Itching tramadol Adverse Reaction (Verified 06/04/23 12:03) Other just doesnt work Previous/Current Goals Goals 1-5 Previous Goal #1: Pt will complete basic to mod complex sustained, alternating, divided attention tasks with 90% acc independently across 3 measured opportunities Goal 1 Status: Goal Progressin perfection pieces within a 60 second time frame - Trial 1: 06/26 - Trial 2: 05/27 - Trial 3: 07/27 Pt practiced by matching up pieces without the timer as well Previous Goal #2: Pt will complete verbal monologue tasks including but not limited to stating pros/cons, verbal reasoning, problem solving, requesting help, explaining directions, storytelling/ retelling with no more than min cues during 2/3 trials across 3 sessions Goal 2 Status: Goal Progressing: Pros/Cons - Trial 1 (pet insurance) - 5/5 pros, 2/5 cons I, increased with cues Trial 2 (using public transportation) - 4/5 pros, 2/5 pros Previous Goal #3: Pt will complete basic to mod complex immediate, short-term, and working memory tasks with 90% acc independently across 3 measured opportunities. Goal 3 Status: Goal Progressing: exterminator termite recall - recalled both therapists that she say but not names. Remember details about 1 of the therapists. was not able to describe any physical features of the therapist. Word list, related words, 30 sec delay Trial 1) 3/5 Ind, 5/5 with min to mod cues. Second attempt: 5/5 I Trial 2) 4/5 Ind, increased to 5/5 with min cues Trial 3) 5/5 Ind 5 delay - unable to recall any voicemail events. After checking the schedule x1, pt was able to recall all events and times. Previous Goal #4: Pt independently will complete complex problem solving, reasoning, and executive function tasks including but not limited to functional ADL (i.e. managing finances, safety awareness, paying bills, medication management, meal planning, using cellphone) with 90% acc during 2/3 sessions Goal 4 Status: Goal Progressing: Pt completed a voicemail task with min to mod cues. Pt organized events well but would forget to add items to the to do list. Previous Goal #5: Pt will name 8-10 items in an abstract category to increase thought flexibility during 2/3 sessions. Goal 5 Status: Goal MET Pt listed 10 items in an abstract category with 80% accuracy independently. Goals 6-10 Previous Goal #6: Pt will participate in an ongoing cognitive assessment to determine goals, progress and current skill level. Goal 6 Status: Goal Ongoing Objective Dysphagia Administered by Administered by: Self Thin Liquids Administred via: Cup and Straw Oral Transit: WNL Bolus clearance: fully cleared Cough: none observed/unable to assess Pharyngeal phase: immediate laryngeal elevation Patient Report: Pt complained of difficultly remembering to swallow liquids. Per pt report, this began a few weeks ago and she has not identified any specific triggers. This will happen during random times of the day and night. Pt described the experience as she will drink a liquid and hold it in her mouth. She will not remember what to do this the liquid and begin to panic. After a minute, she will remember she is supposed to swallow. She denies coughing, choking, or spitting out the liquid. This happens more often at night and with thin liquids. She drink a smoothie nightly, which has not given her trouble. This happens whether she is by herself or with others. However, she denies this happening with any solid PO. ST implemented a tracking form for pt to complete during the next week to help further look for patterns and triggers. Pt had a modified after her stroke which revealed a mild dysphagia. Pt had coughing and choking after her stroke, which resolved. Comments: Single Sips - WFL Sequential Sips - Impaired, pt unable to drink 3oz of water continuously without stopping x2. Burping x10 noted after sequential sips Swallowing Impairment Contributing Factors to Swallowing Impairment: Reduced Alertness or Attention and Delayed Swallow Initiation Impact Impact on Safety & Functioning: Risk for Aspiration and Risk for Inadequate Nutrition/Hydration Recommendations Modified Barium Swallow/Cookie Swallow Recommended: No Swallowing Treatment: Yes Diet Texture Recommendations Solids: Regular (Level 7) Liquids: Thin (Level 0) Safety Saftey Precautions/Swallowing Recommendations (Check all that Apply): Feed Only when Alert, Reduce Distractions, Needs Verbal Cues to Use Recommended Strategi es, Small Sips & Bites when Eating and Sensory Enhancement (Flavor, Texture, Temperature) Results Swallowing Within Normal Limits: No Swallowing Diagnosis: Dysphagia Unspecified (R13.10) Severity: Mild Reference: Neuro-QoL instrument Radiation Oncology Patient Plan Plan Plan: Will recommend Pt for continued weekly outpatient speech therapy to addres s mod-severe cognitive impairment characterized by deficits in immediate and short-term memory, word retrieval, executive functioning, attention, problem solving/reasoning, and safety awareness. Pt would benefit from training in compensatory strategies for recall and word retrieval, as well as cognitive training to improve cognitive functioning. Will also rx Pt for skilled outpatient tx to address deficits in unspecified dysphagia. Pt would benefit from training and education re: diet tolerance checks, compensatory strategies and flavor/texture enhancement. Without skilled intervention, Pt is at risk for consuming a restrictive diet putting her at risk for aspiration pneumonia and atrophy of laryngeal musculature. Recommendations MBS: No Treatment Warranted: Yes Treatment Warranted: Speech Sound Production and Dysphagia Progress Prognosis: Excellent Frequency Frequency: 1x/Week Duration: 2-4 Months Goals that are Established Determination:: Goals will be added/modified as deemed necessary and appropriate. Therapy will be discontinued when results of re-evaluation indicate therapy is no longer needed or lack of progress has been documented. Goal #1-5 Goal #1: Pt will complete basic to mod complex sustained, alternating, divided attention tasks with 90% acc independently across 3 measured opportunities Goal #2: Pt will complete verbal monologue tasks including but not limited to stating pros/cons, verbal reasoning, problem solving, requesting help, explaining directions, storytelling/ retelling with no more than min cues during 2/3 trials across 3 sessions Goal #3: Pt will complete basic to mod complex immediate, short-term, and working memory tasks with 90% acc independently across 3 measured opportunities. Goal #4: Pt independently will complete complex problem solving, reasoning, and executive function tasks including but not limited to functional ADL (i.e. managing finances, safety awareness, paying bills, medication management, meal planning, using cellphone) with 90% acc during 2/3 sessions Goal #5: Pt will complete a tracking form to monitor dysphagia symptoms and return the form at the next session over a 4 week period Goal #6-10 Goal #6: Pt will participate in an ongoing cognitive assessment to determine goals, progress and current skill level.
--- NOTE | 2023-08-28 16:05 | HP.PTREVAL ---
Re-Evaluation Intro: Ariel Hua PA-C, It has been my pleasure to treat HALI BENJAMIN over the last 71 visits for R MARILUZ 10/30/22. Please see the progress note below for an update on the physical therapy plan of care! Subjective Subjective: I am in a lot of pain today in my LB, R hip, and R shoulder after a bad fall 10 days ago. Pt notes prior to that, she was sick for a couple weeks. Pt reports her doctor and EMS have banned her from using her cane anymore. Objective Objective/Function: MMT: R hip flex= 13, abd= 39, add= 42; R knee flex= 26, ext= 14 #F; L hip flex= 21, abd= 39, add= 40; L knee flex= 32, ext= 47 #F Pain in her L/S and R hip range from 7-10/10 Gait: Pt is able to ambulate 62 feet until having to rest secondary to fatigue. Pt displays a very slow cadance. Pt has significantly regressed since her illness and recent falls. Pt is now very unsteady with ambulation and very debilitated. Plan Plan Plan: Attempt to get 12 visits approved to focus on gait training, strengthening, and balance activity to prevent future falls Balance/Gait/Functional tests Balance/Special Test Scores Functional Gait Assessment Score: 12 % Disability: 60.0000 Lower Extremity Functional Score: 15 Goals Goals Goal 1:: Decrease R hip pain x 50% to aid with sleep Goal Time Frame: 4-6 Weeks Goal Progress: Progressing Goal 2:: Pt will be able to ambulate 1000 feet without difficulty to aid with community ambulation Goal Time Frame: 4-6 Weeks Goal Progress: Progressing Goal 3:: I with HEP Goal Time Frame: 4-6 Weeks Goal Progress: Progressing Goal 4:: Increase FGA x 5 points to aid with preventing future falls Goal Progress: Not appropriate at this t Goal 5:: Increase B LE strength x 1 grade to aid with ambulatory distance and stability Goal Time Frame: 4-6 Weeks Goal Progress: New goal Anticipated Interventions Re-Evaluation Ending Re-evaluation ending: Please do not hesitate to contact me at [phone] by phone or if you have questions or concerns regarding this new plan of care! Sincerely, Fidencio Shaw, PT, ATC
--- NOTE | 2023-10-30 16:10 | HP.PTREVAL ---
Re-Evaluation Intro: Ariel Hua PA-C, It has been my pleasure to treat HALI BENJAMIN over the last 82 visits for R MARILUZ 10/30/22. Please see the progress note below for an update on the physical therapy plan of care! Subjective Subjective: R hip pain ranges from 6-9/10 Objective Objective/Function: R LE MMT 4/5 throughout. L LE 5/5 throughout R hip pain ranges 6-9/10 Pt is able to ambulate 340 feet until needing to rest secondary to pain Pt is progressing well. Still lacks functional mobility and strength at this time. Plan Plan Plan: focus on gait training, strengthening, and balance activity to prevent future falls Balance/Gait/Functional tests Balance/Special Test Scores Functional Gait Assessment Score: 12 % Disability: 60.0000 Lower Extremity Functional Score: 5 Goals Goals Goal 1:: Decrease R hip pain x 50% to aid with sleep Goal Time Frame: 4-6 Weeks Goal Progress: Progressing Goal 2:: Pt will be able to ambulate 1000 feet without difficulty to aid with community ambulation Goal Time Frame: 4-6 Weeks Goal Progress: Progressing Goal 3:: I with HEP Goal Time Frame: 4-6 Weeks Goal Progress: Progressing Goal 4:: Increase FGA x 5 points to aid with preventing future falls Goal Progress: Not appropriate at this t Goal 5:: Increase B LE strength x 1 grade to aid with ambulatory distance and stability Goal Time Frame: 4-6 Weeks Goal Progress: Progressing Anticipated Interventions Re-Evaluation Ending Re-evaluation ending: Please do not hesitate to contact me at [phone] by phone or if you have questions or concerns regarding this new plan of care! Sincerely, Fidencio Shaw, PT, ATC
--- NOTE | 2023-12-12 17:41 | HP.PT.NRP ---
Patient Information Patient Information: HALI BENJAMIN was seen in my office for initial evaluation on . The following Plan of Care was established for this patient: Last Seen Last Seen: This patient was last seen in our office . Pertinent comments regarding their Physical therapy will appear below: Pt was treated for 86 visits for L hip pain through the date of 11/20/23. Pt has not returned through todays date and is discontinued at this time At this point I will be discontinuing this patient from physical therapy. I would be happy to see this patient again in the future if found appropriate by the physician. Thank you! Fidencio Shaw, PT, ATC Balance/Gait/Functional tests Balance/Special Test Scores Functional Gait Assessment Score: 12 % Disability: 60.0000 Lower Extremity Functional Score: 5
== END 2023-11-20 19:00 | disposition home or self-care (01) ==
LOC: PT 15:00
PROVIDERS: PCP Internal Medicine; Referring Provider Physician Assistant Surgical; Visit Provider Physician Assistant Surgical
DX: T84.030D Mechanical loosening of internal right hip prosthetic joint, subsequent encounter (principal); Z96.641 Presence of right artificial hip joint; Z86.73 Personal history of transient ischemic attack (TIA), and cerebral infarction without residual deficits; R41.3 Other amnesia; F13.10 Sedative, hypnotic or anxiolytic abuse, uncomplicated; F80.89 Other developmental disorders of speech and language
CPT/HCPCS: 92507; 92526; 97110; 97129; 97130; 97164; 97530